=== PATIENT | male | born 1975 | race Caucasian/White ===

== ENCOUNTER 2023-01-04 10:15 | Emergency (ER) | payer OTHER, SELFPAY ==
[2023-01-04] VITALS (17 sets, daily range): BP systolic 134–172; BP diastolic 75–95; PULSE 73–85; RESP 16–20; TEMP 36.5–36.7; O2SAT 93–96
--- NOTE | ~2023-01-04 | CT_ITS ---
EXAMINATION: CT abdomen pelvis wo con DATE: 01/04/2023 11:50 INDICATION: Right groin abscess. TECHNIQUE: Computed tomography (CT) of the abdomen and pelvis was performed without intravenous contr ast. Automated exposure control and iterative reconstruction technique were employed. The dose-length product was 743.40 mGy-cm. COMPARISON: CT abdomen 01/29/2006 FINDINGS: The visualized portions of the lung bases demonstrate mild atelectasis. No pleural effusion . The heart size is normal. There are coronary artery calcifications. No pericardial effusion. The li ashwini, gallbladder, spleen, pancreas, adrenal glands, and kidneys are normal. There is no urolithiasis. The prostate is mildly enlarged. There are no dilated loops of bowel. The appendix is normal. There are no pathologically enlarged lymph nodes. There is no free intraperitoneal fluid. In the right ingu inal region, there is subcutaneous fat stranding, consistent with cellulitis. There is prominent fat in right inguinal canal that may be a hernia. There is mild thoracolumbar spondylosis. IMPRESSION: 1. Subcutaneous cellulitis in right inguinal region. No abscess. Reviewed, dictated and finalized at location A.
--- NOTE | 2023-01-04 10:29 | ED.SKABFB ---
HPI - Skin/Abscess/Foreign Bdy General Chief complaint: Skin/Abscess/Foreign Body Stated complaint: abscess on groin, hx DM1 Time Seen by Provider: 01/04/23 10:28 Source: patient Mode of arrival: ambulatory Limitations: no limitations History of Present Illness HPI narrative: Patient is a 47-year-old male with a history of type 1 diabetes, coronary artery disease, COPD presenting to the emergency department for evaluation of abscess in his right groin. Patient noted an abscess in his right groin that appeared on December 22. Patient states it was increasing in size as well as redness, increasing tenderness for which patient saw his primary care physician on the and was prescribed doxycycline. Patient does report that abscess has been draining foul-smelling, white-colored discharge over the past 48 hours. 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 He denies any testicular pain, upper abdominal pain. He denies fever, chills, nausea or vomiting. Patient is unsure if the doxycycline has really improved his symptoms. Patient was given follow-up with general surgery but advised to come here by his primary care physician for definitive incision and drainage. Patient reports history of this in the past for which she required surgery and admission. He states that he has been wearing his insulin pump and that glucoses have been well controlled. Related Data Home Medications Medication Instructions Recorded Confirmed atorvastatin 40 mg tablet 40 mg PO DAILY 06/09/20 08/09/22 clopidogrel 75 mg tablet 75 mg PO DAILY 06/09/20 08/09/22 cetirizine 10 mg tablet (Zyrtec) 10 mg PO DAILY PRN 08/09/22 08/09/22 Allergies Allergy/AdvReac Type Severity Reaction Status Date / Time guaifenesin Allergy Severe Dyspnea / Verified 01/04/23 11:32 SOB oxycodone AdvReac Intermediate Other Verified 01/04/23 11:32 Review of Systems Review of Systems: CONSTITUTIONAL: Denies fever, chills, or sweats. EYES: Denies visual changes, redness, or discharge. ENT: Denies rhinorrhea, congestion, sore throat, or otalgia. CARDIOVASCULAR: Denies chest pain, palpitations, or edema. RESPIRATORY: Denies cough or dyspnea. GASTROINTESTINAL: Denies abdominal pain, nausea, vomiting, or diarrhea. GENITOURINARY: Denies dysuria or hematuria. SKIN: Denies rash, reports draining right groin abscess MUSCULOSKELETAL: Denies back pain, joint pain, or myalgia. NEUROLOGIC: Denies headache, numbness, or weakness. [facility] Past Medical History Medical History Abscess of skin Anxiety CAD (coronary artery disease) COPD (chronic obstructive pulmonary disease) Ear pain, right H/O: HTN (hypertension) Heart disease Hyperlipidemia Hypothyroidism Long-term insulin use Neuropathy Type 1 diabetes mellitus Vision loss Surgical History Surgical History History of heart artery stent Family History Family History Mother Family history of cardiovascular disease Other Diabetes mellitus Family history of malignant neoplasm Hypertension Social History Social History Smoking status: Current every day smoker Tobacco type: cigarettes Alcohol intake: current Drinks per week: 6 Substance use: never Living arrangements: alone Occupation/Education: occupation Gender identity (if verbalized by the patient): Male Exam Narrative: GENERAL: Awake, alert, conversant HEAD: Normocephalic, atraumatic. EYES: PERRLA and EOMI. ENT: Nares clear, no rhinorrhea or epistaxis. Mucous membranes moist. NECK: Supple. CHEST: No respiratory distress, breathing even and non labored HEART: Regular rate, sinus rhythm ABDOMEN:Non distended, non tender EXTREMITIES: Normal range of motion. No edema. Patient with a right sided abscess that is draining pur
[2023-01-04 11:13] LABS: Basophils Absolute Auto 0.1 K/mm3 (0.0-0.1); Basophils Percent Auto 1.1 % (0.2-1.2); Eosinophils Absolute Auto 0.5 K/mm3 (0-0.3); Eosinophils Percent Auto 7.4 % (0-4.4); Hemoglobin 10.7 g/dL (14.0-18.0); Immature Granulocyte Absolute 0.02 K/mm3 (0.00-0.031); Immature Granulocyte Percent A 0.3 % (0-0.5); Lymphocytes Absolute Auto 1.59 K/mm3 (0.9-3.2); Mean Corpuscular HGB Conc 33.4 g/dl (32-36); Mean Corpuscular Hemoglobin 29.5 pg (26-34); Mean Corpuscular Volume 88.2 fl (80-100); Mean Platelet Volume 11.4 fl (7.4-10.4); Monocytes Absolute Auto 0.5 K/mm3 (0.1-0.6); Monocytes Percent Auto 8.2 % (2.6-8.5); Neutrophils Absolute Auto 3.5 K/mm3 (1.3-6.7); Platelet Count Result 158 k/mm3 (150-375); Red Blood Count 3.63 M/mm3 (4.6-6.20); Red Cell Distribution Width 13.3 % (11.5-14.5); White Blood Count 6.1 K/mm3 (4.5-10.0)
[2023-01-04 11:25] LABS: Alanine Aminotransferase 15 U/L (6-50); Albumin Level 3.5 g/dL (3.5-5.1); Alkaline Phosphatase 89 U/L (38-126); Anion Gap 4 mmol/L (8-16); Aspartate Amino Transferase 17 U/L (17-59); Bilirubin,Total 0.5 mg/dL (0.2-1.3); Blood Urea Nitrogen 25 mg/dL (9-20); Calcium 8.5 mg/dL (8.4-10.2); Carbon Dioxide 20 mmol/L (22-30); Chloride 110 mmol/L (98-107); Estimated CRCL calculation 36 ml/min; Estimated Glomerular Filt Rate 29; Glucose 157 mg/dL (65-110); Potassium 4.2 mmol/L (3.4-5.0); Sodium 134 mmol/L (137-145)
[2023-01-04] MEDS: oxyCODONE/ACETAMINOPHEN (*CRX) 5-325 MG TABLET 1 TABLET PO (11:32)
--- NOTE | 2023-01-04 11:35 | PC.NURSE ---
Patient states allergy to oxycodone is upset stomach if he hasnt eaten in a long time and was okay to take the medication. Provider made aware.
[2023-01-04] MEDS: SODIUM CHLORIDE 0.9% IV 1,000 ML 999 ML IV CONT (11:51)
[2023-01-04 11:52] LABS: Lactic Acid Reflex 0.6 mmol/L (0.7-2.0)
[2023-01-04 12:06] LABS: CRP 2.4 mg/dL (<1.0)
[2023-01-04 12:12] LABS: Erythrocyte Sedimentation Rate 75 mm/hr (0-20)
[2023-01-04] MEDS: MORPHINE SULFATE (*CRX) 4 MG/ML INJ IV PUSH (13:25)
--- NOTE | 2023-01-04 15:08 | PC.NURSE ---
report given to INESSA Montemayor
--- NOTE | 2023-01-04 16:31 | PM.CNGS ---
Assessment and Plan Assessment and plan (1) Abscess of right groin: Code(s): L02.214 - Cutaneous abscess of groin Status: Acute Assessment and Plan: Small simple right groin abscess with significant history of multiple previous recurrent bilateral groin abscesses in the past. Suspicious for hidradenitis. CT abdomen and pelvis showed no deeper abscess or subcutaneous gas. He successfully had an I&D in the ER and the incision was packed. WBC normal and he is afebrile. Discussed the case with Dr. Tripathi. We would recommend that he be sent home with oral antibiotics, switched from the doxycycline which he ultimately failed as an outpatient. Continue packing dressing changes with the 1/4 iodoform gauze daily. Follow-up with Dr. Tripathi in the office in 1-2 weeks. Call sooner if worsening or with any surgical concerns. (2) Type 1 diabetes mellitus: Code(s): E10.9 - Type 1 diabetes mellitus without complications Status: Acute Assessment and Plan: Glucose has been running higher than normal for him, as high as 220's over the past week. Likely related to the infection. His glucose is 157 today. He monitors his glucose closely and has an insulin pump. (3) CAD (coronary artery disease): Code(s): I25.10 - Atherosclerotic heart disease of [place] coronary artery without angina pectoris Status: Acute (4) H/O: HTN (hypertension): Code(s): Z86.79 - Personal history of other diseases of the circulatory system Status: Acute (5) Tobacco abuse: Code(s): Z72.0 - Tobacco use Status: Acute (6) Antiplatelet or antithrombotic long-term use: Code(s): Z79.02 - group home (current) use of antithrombotics/antiplatelets Status: Acute Plan I have discussed the patient's case and plan of care with Dr. Tripathi. History of Present Illness Consult details Consult date: 01/04/23 Reason for consult: other (Right groin abscess) Requesting physician: Anne Asencio MD Narrative: This is a 47-year-old man with type 1 diabetes mellitus and a history of multiple previous bilateral groin abscesses that have required incision and drainage multiple times in the past. He reports first noticing an area in his right groin that was red, swollen, and tender about 6 days ago. He called his PCP immediately that day due to his recurrent issues with groin abscesses and they called him in a script electronically for doxycycline. He started the antibiotic that day and has been taking this as prescribed. Initially, he felt the area got more swollen and tender over the next few days. He then saw his PCP on Sunday to evaluate his groin. They recommended he continue the doxycycline and go to the ER for evaluation. He ultimately decided to give it more time at home. This area began draining and over the past 2 days he feels there is significant improvement in the swelling and pain. Today, he decided to come into the ER to have this evaluated. Denies any fever chills. On exam, he was found have a right groin abscess that was draining purulence fluid through a small opening. Labs showed a normal white blood cell count, he was afebrile, and his vital signs were stable in the ER. CT scan of the abdomen and pelvis without contrast showed subcutaneous cellulitis in the right inguinal region with no evident abscess. The ER physician performed an incision and drainage of the right groin abscess. Abscess cultures were obtained. Our service has been consulted regarding the right groin abscess. He is now seen in the ER. His right groin has been packed following the I and D with quarter-inch iodoform gauze. He reports doing packing dressing changes in the past after previous I and D's himself. He denies a known history of hidradenitis suppurativa. Review of Systems Review of Systems: All systems reviewed & are unremarkable except as noted in HPI and below PMFSH Past Medical History Medical History (Updated 01/04/23 @ 16:
== END 2023-01-04 15:44 | disposition home or self-care (01) ==
LOC: ANHED 13:55 → ANH3MEDSUR 15:04 → ANHED 15:23
PROVIDERS: Emergency Provider Emergency Medicine; PCP Family Medicine
DX: L02.214 Cutaneous abscess of groin (principal); L03.314 Cellulitis of groin; I25.10 Atherosclerotic heart disease of native coronary artery without angina pectoris; J44.9 Chronic obstructive pulmonary disease, unspecified; E78.5 Hyperlipidemia, unspecified; I11.9 Hypertensive heart disease without heart failure; E03.9 Hypothyroidism, unspecified; E10.40 Type 1 diabetes mellitus with diabetic neuropathy, unspecified; F17.210 Nicotine dependence, cigarettes, uncomplicated; Z95.5 Presence of coronary angioplasty implant and graft; Z79.02 Long term (current) use of antithrombotics/antiplatelets; Z79.4 Long term (current) use of insulin
CPT/HCPCS: 10061; 36415; 74176; 80053; 83605; 85025; 85652; 86140; 87040; 87070; 87205; 96361; 96365; 96375; 99284; A9270; J2270; J3370; J7030

== ENCOUNTER 2023-12-31 10:04 | Outpatient (CLI) | payer OTHER, SELFPAY ==
[2023-12-31 10:55] LABS: Anion Gap 7 mmol/L (8-16); Blood Urea Nitrogen 41 mg/dL (9-20); Calcium 8.6 mg/dL (8.4-10.2); Carbon Dioxide 16 mmol/L (22-30); Chloride 112 mmol/L (98-107); Estimated Glomerular Filt Rate 21; Glucose 161 mg/dL (65-110); Potassium 4.1 mmol/L (3.4-5.0); Sodium 135 mmol/L (137-145)
== END 2023-12-31 10:05 | disposition home or self-care (01) ==
LOC: ANHSURGERY 10:08
PROVIDERS: Anesthesiology; PCP Physician Assistant Medical; Visit Provider Surgery
DX: E10.9 Type 1 diabetes mellitus without complications (principal)
CPT/HCPCS: 36415; 80048

== ENCOUNTER 2024-01-02 02:32 | Day surgery (SDC) | payer OTHER, SELFPAY ==
[2023-12-27 09:49] VITALS: BMI 25.7
--- NOTE | 2023-12-27 10:07 | PC.NURSE ---
Report to the Outpatient Waiting Room, entrance under the green pavilion located off [facility], at 0600 on 01-02-24. Planned Procedure Time: 0730. Time changes happen often and if your time is changed the preop area will call you the afternoon before. - You and your visitor will be asked to self-screen and do not enter if you have any COVID symptoms. - A mask is optional within the hospital at this time. Patients may have clear liquids (water, carbonated beverages, clear teas, apple juice) until 3 hours prior to surgery with a maximum of 20 ounces. 0430 - No food from midnight until time of surgery - Infants may have breast milk until 4 hours before surgery, formula 6 hours prior to surgery. - Children will be allowed to drink immediately following surgery. If applicable, please bring a bottle or sippy cup to assist with drinking. Juice, water, soda, and popsicles are readily available. For infants on formula, please bring formula the day of surgery. Pacifiers are allowed. Take the following medications with a SIP of water the morning of surgery: levothyroxine, carvedilol, amlodipine, venlafaxine, alprazolam if needed BRING RESCUE INHALER DAY OF SURGERY TO HOSPITAL. Wear insulin pump day of surgery. DO NOT STOP ANY OF YOUR OTHER PRESCRIPTION MEDICATIONS PRIOR TO SURGERY ?EXCEPT THE FOLLOWING Medications to discontinue per physician: Plavix, aspirin Date to take last dose: Per Dr. Tripathi Please no make-up, nail czech, hairspray, perfume, deodorant, or body powder the day of surgery. No jewelry (including any body piercings) or valuables the day of surgery, leave them at home. Please take a shower or bath the night before, or the morning of, surgery with an antibacterial soap. Wear comfortable, loose fitting clothing. Children are encouraged to wear pajamas. - Jewelry must be removed prior to entering the operating room. Rings and piercings that are not removed may be cut off. - The hospital will not accept responsibility for valuables. - Please leave all valuables, including medications, at home the day of surgery. If you are going home after surgery, a licensed city bus driver must drive you home. - NO public transportation without another adult if you receive anesthesia. - We recommend that an adult stay with you for 24 hours following discharge. - We also recommend that you do not drive, make important decision, drink alcoholic beverages, or take any drugs that were not prescribed by your health care provider for at least 24 hours after your discharge time. For Pediatric surgeries, we recommend two adults accompany the child home. Follow any additional instructions given to you from your surgeon. If you or anyone in your household have experienced Covid symptoms in the past week, please notify your surgeon or the nurse liaison at the phone number below for possible testing. Telephone instructions given to Daniel Kowalski and asked if any additional questions and then verbalized understanding. Patient advised to call surgeon office or pre surgery nurse liaison [phone] if any additional questions.
--- NOTE | 2024-01-01 10:30 | PM.SD2 ---
Same Day Admit/Disch: HPI History of Present Illness Chief complaint: skin cyst of neck Narrative: Tank Kowalski is a 48 year old male with multiple medical comorbidities including insulin-dependent diabetes, history AL and coronary stents, chronic anti thrombotic therapy, chronic kidney disease stage 4, COPD, smoker, and alcohol use of 6 drinks per week. He has a history of recurrent groin abscesses. He had developed a swollen nodule on the left side of his neck. With antibiotics the swelling resolved as did the pain associated with this. He was seen in the office and found to have a 2 cm skin cyst of the left neck about 3 in under the chin. He is taken to surgery now to excise the cyst to prevent further episodes of infection. [facility] Past Medical History Medical History (Updated 01/02/24 @ 11:46 by Humberto Tripathi MD) Abscess of skin Anxiety CAD (coronary artery disease) CKD (chronic kidney disease) stage 4, GFR 15-29 ml/min COPD (chronic obstructive pulmonary disease) Diabetes type 2, controlled Ear pain, right H/O: HTN (hypertension) Heart disease History of melanoma History of myocardial infarction Hyperlipidemia Hypothyroidism Long-term insulin use Melanoma Left cheek and nose Neuropathy Nocturia Mild prostate enlargement on CT December 2022 Restless leg syndrome Type 1 diabetes mellitus Vision loss Surgical History Surgical History (Updated 01/01/24 @ 15:54 by Olman Patel DO) History of heart artery stent x4 History of incision and drainage Multiple previous I&D's of bilateral groin abscesses for years Family History Family History Mother Family history of cardiovascular disease Other Diabetes mellitus Family history of malignant neoplasm Hypertension Social History Social History Smoking packs per day: 1.5 Smoking cigarettes per day: 30.0 Years smoked: 32 Smoking pack-years: 48.00 Smoking status: Current every day smoker Tobacco type: cigarettes Second hand tobacco smoke exposure: No Alcohol intake: current Drinks per week: 6 Substance use: never Substance use type: does not use Lack of Transportation: No Lack of Food: Never True Current Housing: I Have Housing Concerned About Future Housing: No Difficulty Paying Gas/Electric Bills: No Difficulty Paying for Meds: No Currently Unemployed: No Education: Trade/Vocational Certificate Difficulty w/ Childcare or Family Care: No Living arrangements: alone Occupation/Education: occupation 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 Gender identity (if verbalized by the patient): Male Spiritual care concerns: No Same Day Admit/Disch: Med Pre-admit Medications Home Medications Medication Instructions Recorded Confirmed Type clopidogrel 75 mg tablet 75 mg PO DAILY 06/09/20 01/02/24 History cetirizine 10 mg tablet (Zyrtec) 10 mg PO DAILY 08/09/22 01/02/24 History albuterol sulfate 90 mcg/actuation 2 inh inhalation Q4H PRN shortness 08/07/23 01/02/24 Rx aerosol inhaler (Ventolin HFA) of breath or wheezing #6.7 grams levothyroxine 50 mcg tablet 50 mcg PO DAILY #90 tabs 08/20/23 01/02/24 Rx pregabalin 75 mg capsule 75 mg PO BID #180 caps 08/20/23 01/02/24 Rx insulin lispro 100 unit/mL 100 unit continuous subcutaneous 11/28/23 01/02/24 Rx subcutaneous solution (Humalog infusion DAILY #90 mL U-100 Insulin) atorvastatin 40 mg tablet 40 mg PO DAILY #90 tabs 12/13/23 01/02/24 Rx carvedilol 25 mg tablet 25 mg PO BID #180 tabs 12/13/23 01/02/24 Rx lisinopril 2.5 mg tablet 2.5 mg PO DAILY #90 tabs 12/13/23 01/02/24 Rx pantoprazole 40 mg tablet,delayed 40 mg PO BID #180 tabs 12/13/23 01/02/24 Rx release venlafaxine 75 mg capsule,extended 150 mg PO DAILY #180 caps 12/13/23 01/02/24 Rx release 24 hr blood-glucose sensor (FreeStyle #2 ea 12/18/23 01/02/24 Rx Li
--- NOTE | 2024-01-01 15:53 | WPDANESEPPF ---
Anes - Initial Pre Proc Eval Procedure: Operation Date: 01/02/24 07:30 Proposed Procedures p Excision Skin Cyst of Neck - Humberto Tripathi MD Date/Time: 01/01/24 15:53 Surgeon: Humberto Tripathi MD Pre Op Diagnosis: skin cyst of neck Patient Data Age: 48 Gender: M Height: 1.8 m Weight: 83.91 kg Allergies Allergy/AdvReac Type Severity Reaction Status Date / Time guaifenesin Allergy Severe Dyspnea / Verified 12/27/23 09:26 SOB Home Medications Medication Instructions Recorded Confirmed Type clopidogrel 75 mg tablet 75 mg PO DAILY 06/09/20 01/02/24 History cetirizine 10 mg tablet (Zyrtec) 10 mg PO DAILY 08/09/22 01/02/24 History albuterol sulfate 90 mcg/actuation 2 inh inhalation Q4H PRN shortness 08/07/23 01/02/24 Rx aerosol inhaler (Ventolin HFA) of breath or wheezing #6.7 grams levothyroxine 50 mcg tablet 50 mcg PO DAILY #90 tabs 08/20/23 01/02/24 Rx pregabalin 75 mg capsule 75 mg PO BID #180 caps 08/20/23 01/02/24 Rx insulin lispro 100 unit/mL 100 unit continuous subcutaneous 11/28/23 01/02/24 Rx subcutaneous solution (Humalog infusion DAILY #90 mL U-100 Insulin) atorvastatin 40 mg tablet 40 mg PO DAILY #90 tabs 12/13/23 01/02/24 Rx carvedilol 25 mg tablet 25 mg PO BID #180 tabs 12/13/23 01/02/24 Rx lisinopril 2.5 mg tablet 2.5 mg PO DAILY #90 tabs 12/13/23 01/02/24 Rx pantoprazole 40 mg tablet,delayed 40 mg PO BID #180 tabs 12/13/23 01/02/24 Rx release venlafaxine 75 mg capsule,extended 150 mg PO DAILY #180 caps 12/13/23 01/02/24 Rx release 24 hr blood-glucose sensor (FreeStyle #2 ea 12/18/23 01/02/24 Rx Mita 3 Sensor device) amlodipine 10 mg tablet 10 mg PO DAILY #90 tabs 12/24/23 01/02/24 Rx alprazolam 0.25 mg tablet (Xanax) 0.25 mg PO DAILY PRN Anxiety 12/27/23 01/02/24 History aspirin 81 mg capsule 81 mg PO DAILY 12/27/23 01/02/24 History Patient hx anesthesia problems: none Family hx anesthesia problems: none Results Review: All pre-operative results and documents have been reviewed as part of the pre-operative evaluation. [facility] Past Medical History Medical History (Updated 01/01/24 @ 15:54 by Olman Patel DO) Abscess of skin Anxiety CAD (coronary artery disease) CKD (chronic kidney disease) stage 4, GFR 15-29 ml/min COPD (chronic obstructive pulmonary disease) Diabetes type 2, controlled Ear pain, right H/O: HTN (hypertension) Heart disease History of melanoma History of myocardial infarction Hyperlipidemia Hypothyroidism Long-term insulin use Melanoma Left cheek and nose Neuropathy Nocturia Mild prostate enlargement on CT December 2022 Restless leg syndrome Type 1 diabetes mellitus Vision loss Surgical History Surgical History (Updated 01/01/24 @ 15:54 by Olman Patel DO) History of heart artery stent x4 History of incision and drainage Multiple previous I&D's of bilateral groin abscesses for years Family History Family History Mother Family history of cardiovascular disease Other Diabetes mellitus Family history of malignant neoplasm Hypertension Social History Social History Smoking packs per day: 1.5 Smoking cigarettes per day: 30.0 Years smoked: 32 Smoking pack-years: 48.00 Smoking status: Current every day smoker Tobacco type: cigarettes Second hand tobacco smoke exposure: No Alcohol intake: current Drinks per week: 6 Substance use: never Substance use type: does not use Lack of Transportation: No Lack of Food: Never True Current Housing: I Have Housing Concerned About Future Housing: No Difficulty Paying Gas/Electric Bills: No Difficulty Paying for Meds: No Currently Unemployed: No Education: Trade/Vocational Certificate Difficulty w/ Childcare or Family Care: No Living arrangements: alone Occupation/Education: occupation Additional occupation/education
[2024-01-02 06:45] LABS: Glucose Point of Care 257 mg/dl (65-105)
--- NOTE | 2024-01-02 07:01 | WPDHPUPDATE1 ---
History and Physical Update Update Date/Time: 01/02/24 07:01 History and Physical has been reviewed, including an updated exam of the patient. There are NO changes in the patient's condition. Risks, benefits, and alternatives have been discussed and questions answered. Patient agrees to proceed with procedure.
[2024-01-02 07:25] VITALS: BP 139/74; PULSE 72; RESP 16; TEMP 37; O2SAT 98
[2024-01-02] MEDS: LACTATED RINGERS 1,000 ML 30 ML IV CONT (07:25)
[2024-01-02] MEDS: SCOPOLAMINE 1 MG PATCH 1 PATCH TRANSDERM (07:25)
[2024-01-02] MEDS: ceFAZolin 2 GM/D5W 50 ML 2 GM/50 ML BAG IVPB (07:25)
[2024-01-02 07:30] VITALS: BMI 26.2
[2024-01-02] MEDS: BUPIVACAINE/EPINEPHRINE 0.5% 30 ML VIAL INFILTRATE (07:44)
[2024-01-02 08:10] VITALS: BP 132/78; PULSE 72; RESP 14; O2SAT 99
[2024-01-02 08:30] VITALS: BP 153/80; PULSE 71; RESP 14; O2SAT 91
--- NOTE | 2024-01-02 08:35 | W.PM.PROC2 ---
Procedure Note - Detailed Date of Procedure 01/02/24 Pre-op Diagnosis skin cyst of neck Post-op Diagnosis Other (2.5 cm subcutaneous mass of the neck) Procedure Performed Excision 2.5 cm subcutaneous mass of the neck with no margin Surgeon Humberto Tripathi MD Claims Coordinator Cori Katz DRY KILN OPERATOR Anesthesia General (LMA) and Local (0.5% Marcaine with epinephrine) Indications Patient has had a subcutaneous mass in the anterior neck for at least a year. About 4 months ago it became swollen, tender, and painful. He took antibiotics and got better. He had a CT scan which showed a subcutaneous mass of about 1.8 cm. It had enlarged since a CT scan had been done in January of 2022. On exam it was hard to determine if this was a cyst or a lipoma. With his history of swelling and response to antibiotics, I felt at his office visit that this was a cyst of the skin. He is taken to surgery at this point for excision Findings It appeared this was a subcutaneous lipoma of 2.5 cm. The 2.5 cm was the length, 2 cm was the with, depth was 1.5 cm. It appeared to be a lipoma although an enlarged salivary gland or other abnormality the neck is possible. It did not appear to be a skin cyst. Description of Procedure Patient was marked in the preoperative holding area. He was then taken to surgery and anesthesia was introduced with LMA. The anterior neck was prepped and draped. I enzo the anticipated elliptical incision over the subcutaneous mass. I infiltrated local into the area of the anticipated incision as well as in the subcutaneous tissues. Incision was then made and dissection carried through the skin. I was able to see the subcutaneous mass better through the more posterior aspect of the incision. Cautery was used for hemostasis. With traction on the skin just below the mass, I was able to dissect the mass from the surrounding subcutaneous with the cautery. I continued this dissection around the posterior aspect of the mass and taking some of the normal appearing subcutaneous as well as the mass left attached to the skin. Eventually our retractors were placed on the more cephalad skin edge and then the dissection in this aspect was carried until the mass was completely excised. I measured the lesion with dimensions as noted above. Additional local was infiltrated. Cautery was used for hemostasis. 3-0 Vicryl was used for the subcutaneous fascia. A few subcuticular 4-0 Vicryl skin sutures were placed. A running 4-0 Monocryl skin suture was then placed. The wound was dressed with Exofin surgical adhesive. Patient was then awakened and taken to outpatient surgery in good condition. Sponge and needle counts were correct x2. Estimated Blood Loss -3 Drains No Pathology Yes (Subcutaneous mass of anterior neck) Complications No immediate complications Condition Stable Disposition Same day [facility] Billing Surgery - Charge Forward: Surgery Billing (Excision 2.5 cm subcutaneous mass anterior neck with no margin)
[2024-01-02 08:51] LABS: Glucose Point of Care 237 mg/dl (65-105)
[2024-01-02 08:55] VITALS: BP 157/81; PULSE 71; RESP 14; O2SAT 91
== END 2024-01-02 09:06 | disposition home or self-care (01) ==
PROVIDERS: PCP Physician Assistant Medical; Visit Provider Surgery
PROC: (CPT 11423; principal; 2024-01-02 07:30)
DX: L72.0 Epidermal cyst (principal); I13.10 Hypertensive heart and chronic kidney disease without heart failure, with stage 1 through stage 4 chronic kidney disease, or unspecified chronic kidney disease; E11.22 Type 2 diabetes mellitus with diabetic chronic kidney disease; N18.4 Chronic kidney disease, stage 4 (severe); I25.10 Atherosclerotic heart disease of native coronary artery without angina pectoris; I25.2 Old myocardial infarction; E78.5 Hyperlipidemia, unspecified; E03.9 Hypothyroidism, unspecified; E11.40 Type 2 diabetes mellitus with diabetic neuropathy, unspecified; F41.9 Anxiety disorder, unspecified; Z95.5 Presence of coronary angioplasty implant and graft; F17.210 Nicotine dependence, cigarettes, uncomplicated; Z79.02 Long term (current) use of antithrombotics/antiplatelets; Z79.51 Long term (current) use of inhaled steroids; Z79.4 Long term (current) use of insulin
CPT/HCPCS: 11423; 12042; 82948; 88304; A9270; J0690; J2250; J2405; J2704; J3010; J7120

== ENCOUNTER 2024-10-19 10:56 | Inpatient (IN) | payer OTHER, SELFPAY ==
[2024-10-19] VITALS (25 sets, daily range): BP systolic 117–152; BP diastolic 52–77; PULSE 63–89; RESP 16–39; TEMP 36.6–37.8; O2SAT 87–96
--- NOTE | ~2024-10-19 | XR_ITS ---
EXAMINATION: XR chest 2V DATE: 10/19/2024 12:04 INDICATION: Shortness of breath and cough TECHNIQUE: PA and lateral views of the chest were obtained. COMPARISON: Chest radiograph dated 09/28/2023 FINDINGS: New airspace opacities in the anterior lower lungs consistent with lingular and right middle lobe pne umonia. No pleural effusion or pneumothorax. Heart size is normal. Visualized bones and soft tissues are unremarkable. IMPRESSION: 1. Lingular and right middle lobe pneumonia. Reviewed, dictated and finalized at location A. [facility]
--- NOTE | 2024-10-19 11:28 | ECG_ITS ---
Test Date: 2024-10-19 11:48:30 Measurements Intervals [place] Rate: 61 P: 14 AR: 150 QRS: 25 QRSD: 94 T: 47 QT: 408 QTc: 411 Interpretive Statements SINUS RHYTHM SEPTAL MYOCARDIAL INFARCTION , OF INDETERMINATE AGE [40+ ms Q WAVE IN V1/V2] ABNORMAL ECG Electronically Signed On 10-19-2024 13:50:13 DISTANCE EDUCATION COORDINATOR by Tone Swan M.D.
[2024-10-19 11:53] LABS: Basophils Percent Auto 0.9 % (0.2-1.2); Eosinophils Absolute Auto 0.1 K/mm3 (0-0.3); Eosinophils Percent Auto 2.4 % (0-4.4); Hemoglobin 9.9 g/dL (14.0-18.0); Immature Granulocyte Absolute 0.01 K/mm3 (0.00-0.031); Immature Granulocyte Percent A 0.2 % (0-0.5); Lymphocytes Absolute Auto 0.43 K/mm3 (0.9-3.2); Lymphocytes Percent Auto 9.5 % (18.3-44.2); Mean Corpuscular HGB Conc 31.9 g/dl (32-36); Mean Corpuscular Hemoglobin 29.3 pg (26-34); Mean Corpuscular Volume 91.7 fl (80-100); Monocytes Absolute Auto 0.5 K/mm3 (0.1-0.6); Monocytes Percent Auto 9.9 % (2.6-8.5); Neutrophils Absolute Auto 3.5 K/mm3 (1.3-6.7); Neutrophils Percent Auto 77.1 % (45.5-73.1); Platelet Count Result 85 k/mm3 (150-375); Red Blood Count 3.38 M/mm3 (4.6-6.20); Red Cell Distribution Width 14.3 % (11.5-14.5); White Blood Count 4.6 K/mm3 (4.5-10.0)
[2024-10-19 12:11] LABS: Platelet Estimate Decreased (Adequate)
[2024-10-19 12:12] LABS: Large Platelets Present; Schistocytes None Seen
[2024-10-19 12:15] LABS: Alanine Aminotransferase 22 U/L (6-50); Albumin Level 3.7 g/dL (3.5-5.1); Alkaline Phosphatase 100 U/L (38-126); Anion Gap 7 mmol/L (4-12); Aspartate Amino Transferase 24 U/L (17-59); Bilirubin,Total 0.4 mg/dL (0.2-1.3); Blood Urea Nitrogen 38 mg/dL (9-20); Calcium 8.6 mg/dL (8.4-10.2); Carbon Dioxide 16 mmol/L (22-30); Chloride 113 mmol/L (98-107); Estimated CRCL calculation 18 ml/min; Estimated Glomerular Filt Rate 13; Glucose 178 mg/dL (65-110); Potassium 4.6 mmol/L (3.4-5.0); Sodium 136 mmol/L (137-145)
[2024-10-19 12:21] LABS: Lipase 46 U/L (23-300); Magnesium 1.6 mg/dL (1.6-2.3); Phosphorus 5.8 mg/dL (2.5-4.5)
--- NOTE | 2024-10-19 12:32 | PC.NURSE ---
pt unable to urinate at this time. provided pt with call light and urinal. educated pt to call nurses station with any urge to provide UA
[2024-10-19 12:33] LABS: NT Pro B Type Natriuretic Pept 3910 pg/mL (19.9-100); Troponin I < 0.012 ng/mL (0.000-0.034)
[2024-10-19 12:44] LABS: Lactic Acid Reflex < 0.5 mmol/L (0.7-2.0)
[2024-10-19 12:46] LABS: Prothrombin Time 13.7 Seconds (11.1-14.7)
[2024-10-19 12:47] LABS: Partial Thromboplastin Time 33.2 Seconds (22.3-36.8)
[2024-10-19 12:55] LABS: D Dimer 0.47 ug/mL (<0.48)
[2024-10-19 13:00] LABS: Influenza A QL RT-PCR Positive (Negative); Influenza B QL RT-PCR Negative (Negative); RSV RNA, RT-PCR Negative (Negative); SARS-CoV-2 RNA PCR Negative (Negative)
--- NOTE | 2024-10-19 14:44 | ED_ITS ---
HPI - General Adult General Chief complaint: Shortness of Breath/Dyspnea Stated complaint: cough, SOB x2 days Time Seen by Provider: 10/19/24 11:29 History of Present Illness HPI narrative: This is a 49-year-old male history of CKD stage 4 presenting for shortness of breath. patient has been having symptoms have steadily getting worse for the last 3 days. He also has body aches and chills. Patient notes that is difficult for him to lay flat and he has had some swelling around his ankles. No sick contacts at home. Patient has CKD stage 4 and is working with Nephrology to prepare for dialysis. Related Data Home Medications ?Medication ?Instructions ?Recorded ?Confirmed ?Last Taken ?Type clopidogrel 75 mg tablet 75 mg PO DAILY 06/09/20 09/24/24 7 Days Ago History ~12/26/23 cetirizine 10 mg tablet (Zyrtec) 10 mg PO DAILY 08/09/22 09/24/24 01/01/24 History cholecalciferol (vitamin D3) 50 50 mcg PO DAILY 01/25/24 09/24/24 Unknown History mcg (2,000 unit) capsule ezetimibe 10 mg tablet 10 mg PO DAILY 01/25/24 09/24/24 Unknown History Allergies Allergy/AdvReac Type Severity Reaction Status Date / Time guaifenesin Allergy Severe Dyspnea / Verified 10/19/24 10:58 SOB PMF Past Medical History Medical History Hyperparathyroidism Vitamin D deficiency Hypertension Chronic fatigue Peripheral neuropathy Subcutaneous mass of neck excised Diabetes type 2, controlled Restless leg syndrome History of melanoma History of myocardial infarction Skin cyst Melanoma Left cheek and nose Nocturia Mild prostate enlargement on CT December 2022 CKD (chronic kidney disease) stage 4, GFR 15-29 ml/min Abscess of skin Ear pain, right Hypothyroidism Type 1 diabetes mellitus Neuropathy Hyperlipidemia Long-term insulin use with insulin pump COPD (chronic obstructive pulmonary disease) Vision loss Heart disease CAD (coronary artery disease) Anxiety Surgical History Surgical History Hx of excision of mass Excision 2.5 cm subcutaneous mass of the neck with no margin 01/02/24 History of incision and drainage Multiple previous I&D's of bilateral groin abscesses for years History of heart artery stent x4 Family History Family History Mother Family history of cardiovascular disease Other Diabetes mellitus Family history of malignant neoplasm Hypertension Social History Social History Smoking packs per day: 1.5 Smoking cigarettes per day: 30.0 Years smoked: 32 Smoking pack-years: 48.00 Smoking status: Current every day smoker Tobacco type: cigarettes Second hand tobacco smoke exposure: No Alcohol intake: current Drinks per week: 6 Substance use: never Substance use type: does not use Do You Feel Safe in your Home?: Yes Lack of Transportation: No Lack of Food: Never True Current Housing: I Have Housing Concerned About Future Housing: No Difficulty Paying Gas/Electric Bills: No Difficulty Paying for Meds: No Currently Unemployed: No Education: Trade/Vocational Certificate Difficulty w/ Childcare or Family Care: No Living arrangements: alone Occupation/Education: occupation 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 EYES: EOMI, NOSE: Atraumatic NECK: Trachea midline RESPIRATORY: tachypneic, scattered crackles, hypoxic on room air CARDIOVASCULAR: RRR, +1 edema of the lower extremities ABDOMINAL: Non-distended soft nontender MUSCULOSKELETAl: No obvious deformities NEURO: Alert. Moving 4/4 extremities SKIN:: Warm, dry. Normal color PSYCHIATRIC: Normal affect Course Vital Signs Vital signs: Vital Signs Temperature 97.8 F 10/19/24 11:07 Pulse Rate 66 10/19/24 11:07 Respiratory Rate 16 10/19/24 11:07 Blood Pressure 117/52 L 10/19/24 11:07 Pulse Oximetry 88 L 10/19/24 11:07 Oxygen Delivery Room Air 10/19/24 11:07 Temperature 97.8 F 10/19/24 11:30 Pulse Rate 67 10/19/24 13:01 Respiratory Rate 39 H 10/19/24 13:01 Blood Pressure 132/69 10/19/24 13:01 Pulse Oximetry 95 10/19/24 13:01 Oxygen Delivery Nasal Cannula 10/19/24 11:51 Oxygen Flow Rate 2 10/19/24 11:51 Medical Decision Making MDM Narrative Medical decision making narrative: -Course: 49-year-old male presenting with 3 days of flu-like symptoms and hypoxia. Placed on 2 L nasal cannula with improvement in saturation. Workup significant for right-sided pneumonia and flu A. Patient started on Tamiflu. Patient's kidney function with creatinine at 4.7 which was 4.0 at his last nephrology visit on September 24. BNP elevated 4000 but probably not useful with his degree of kidney disease. No echocardiogram in our system. Patient given cautious fluid resuscitation. patient will be admitted hospital for further management. -DDX includes but is not limited to: COVID flu pneumonia CHF COPD sepsis -Co-morbidities complicating care: CKD stage 4, coronary artery disease -Independent interpretation of studies: labs imaging reviewed Independent EKG interpretation: Rhythm [sinus], Rate [61], [place] -[normal], [place] -[normal], QRS [narrow], QTC [normal], T waves -[negative for concerning inversions], ST Segments - [Negative for concerning elevations] Final interpretations: [Normal Sinus Rhythm] -Discussion of Management/Consultants:Liz -Interventions:Tamiflu, 1 L ns -Shared decision making / Disposition: admitted. Vital Signs Vital Signs: Vital Signs Temperature 97.8 F 10/19/24 11:07 Pulse Rate 66 10/19/24 11:07 Respiratory Rate 16 10/19/24 11:07 Blood Pressure 117/52 L 10/19/24 11:07 Pulse Oximetry 88 L 10/19/24 11:07 Oxygen Delivery Room Air 10/19/24 11:07 Temperature 97.8 F 10/19/24 11:30 Pulse Rate 67 10/19/24 13:01 Respiratory Rate 39 H 10/19/24 13:01 Blood Pressure 132/69 10/19/24 13:01 Pulse Oximetry 95 10/19/24 13:01 Oxygen Delivery Nasal Cannula 10/19/24 11:51 Oxygen Flow Rate 2 10/19/24 11:51 Lab Data 10/19/24 11:39 10/19/24 11:39 Labs: Lab Results 10/19/24 10/19/24 10/19/24 Range/Units 11:39 12:14 12:28 WBC 4.6 (4.5-10.0) K/mm3 RBC 3.38 L (4.6-6.20) M/mm3 Hgb 9.9 L (14.0-18.0) g/dL Hct 31.0 L (42.0-52.0) % MCV 91.7 (80-100) fl MCH 29.3 (26-34) pg MCHC 31.9 L (32-36) g/dl RDW 14.3 (11.5-14.5) % Plt Count 85 L (150-375) k/mm3 MPV 12.0 H (7.4-10.4) fl Immature Gran % (Auto) 0.2 (0-0.5) % Neut % (Auto) 77.1 H (45.5-73.1) % Lymph % (Auto) 9.5 L (18.3-44.2) % [place] % (Auto) 9.9 H (2.6-8.5) % Eos % (Auto) 2.4 (0-4.4) % Baso % (Auto) 0.9 (0.2-1.2) % Lymph # (Auto) 0.43 L (0.9-3.2) K/mm3 [place] # (Auto) 0.5 (0.1-0.6) K/mm3 Eos # (Auto) 0.1 (0-0.3) K/mm3 Baso # (Auto) 0.0 (0.0-0.1) K/mm3 Abs Immat Gran (auto) 0.01 (0.00-0.031) K/mm3 Absolute Neuts (auto) 3.5 (1.3-6.7) K/mm3 Absolute Nucleated RBC 0.000 (0.0-0.012) K/mm3 Nucleated RBC % 0.0 (0.0-0.2) % Platelet Estimate Decreased (Adequate) Large Platelets Present % Immature Plt Fraction 11.0 (0.9-11.2) % Schistocytes None seen PT 13.7 (11.1-14.7) Seconds INR 1.0 APTT 33.2 (22.3-36.8) Seconds D-Dimer 0.47 (<0.48) ug/mL Sodium 136 L (137-145) mmol/L Potassium 4.6 (3.4-5.0) mmol/L Chloride 113 H (98-107) mmol/L Carbon Dioxide 16 L (22-30) mmol/L Anion Gap 7 (4-12) mmol/L BUN 38 H (9-20) mg/dL Creatinine 4.70 H (0.7-1.3) mg/dL Estim Creat Clear Calc 18 ml/min Estimated GFR 13 L (59 - ) Glucose 178 H (65-110) mg/dL Lactic Acid < 0.5 L (0.7-2.0) mmol/L Calcium 8.6 (8.4-10.2) mg/dL Phosphorus 5.8 H (2.5-4.5) mg/dL Magnesium 1.6 (1.6-2.3) mg/dL Total Bilirubin 0.4 (0.2-1.3) mg/dL AST 24 (17-59) U/L ALT 22 (6-50) U/L Alkaline Phosphatase 100 (38-126) U/L Troponin I < 0.012 (0.000-0.034) ng/mL NT-Pro-B Natriuret Pep 3910 H (19.9-100) pg/mL Total Protein 7.0 (6.3-8.2) g/dL Albumin 3.7 (3.5-5.1) g/dL Lipase 46 (23-300) U/L TSH (Reflex) 3.390 (0.465-4.68) uIU/mL Influenza A (RT-PCR) Positive A (Negative) Influenza B (RT-PCR) Negative (Negative) RSV (RT-PCR) Negative (Negative) SARS-CoV-2 RNA (RT-PCR) Negative (Negative) 10/19/24 Range/Units 15:02 WBC (4.5-10.0) K/mm3 RBC (4.6-6.20) M/mm3 Hgb (14.0-18.0) g/dL Hct (42.0-52.0) % MCV (80-100) fl MCH (26-34) pg MCHC (32-36) g/dl RDW (11.5-14.5) % Plt Count (150-375) k/mm3 MPV (7.4-10.4) fl Immature Gran % (Auto) (0-0.5) % Neut % (Auto) (45.5-73.1) % Lymph % (Auto) (18.3-44.2) % [place] % (Auto) (2.6-8.5) % Eos % (Auto) (0-4.4) % Baso % (Auto) (0.2-1.2) % Lymph # (Auto) (0.9-3.2) K/mm3 [place] # (Auto) (0.1-0.6) K/mm3 Eos # (Auto) (0-0.3) K/mm3 Baso # (Auto) (0.0-0.1) K/mm3 Abs Immat Gran (auto) (0.00-0.031) K/mm3 Absolute Neuts (auto) (1.3-6.7) K/mm3 Absolute Nucleated RBC (0.0-0.012) K/mm3 Nucleated RBC % (0.0-0.2) % Platelet Estimate (Adequate) Large Platelets % Immature Plt Fraction (0.9-11.2) % Schistocytes PT (11.1-14.7) Seconds INR APTT (22.3-36.8) Seconds D-Dimer (<0.48) ug/mL Sodium (137-145) mmol/L Potassium (3.4-5.0) mmol/L Chloride (98-107) mmol/L Carbon Dioxide (22-30) mmol/L Anion Gap (4-12) mmol/L BUN (9-20) mg/dL Creatinine (0.7-1.3) mg/dL Estim Creat Clear Calc ml/min Estimated GFR (59 - ) Glucose (65-110) mg/dL Lactic Acid (0.7-2.0) mmol/L Calcium (8.4-10.2) mg/dL Phosphorus (2.5-4.5) mg/dL Magnesium (1.6-2.3) mg/dL Total Bilirubin (0.2-1.3) mg/dL AST (17-59) U/L ALT (6-50) U/L Alkaline Phosphatase (38-126) U/L Troponin I < 0.012 (0.000-0.034) ng/mL NT-Pro-B Natriuret Pep (19.9-100) pg/mL Total Protein (6.3-8.2) g/dL Albumin (3.5-5.1) g/dL Lipase (23-300) U/L TSH (Reflex) (0.465-4.68) uIU/mL Influenza A (RT-PCR) (Negative) Influenza B (RT-PCR) (Negative) RSV (RT-PCR) (Negative) SARS-CoV-2 RNA (RT-PCR) (Negative) Critical Care Time Critical Care Time Critical Care Time: Yes Total Critical Care Time: 35 Discharge Plan Discharge Clinical Impression: Flu, Hypoxic respiratory failure, Pneumonia Patient Disposition: Home, Self-Care Condition: Stable Instructions: Antibiotic Form Patient Language: Azeri Prescriptions: No Action clopidogrel 75 mg tablet 75 mg PO DAILY albuterol sulfate [Ventolin HFA] 90 mcg/actuation HFA aerosol inhaler 2 inh inhalation Q4H PRN (Reason: shortness of breath or wheezing) Qty: 6.7 0RF insulin lispro [Humalog U-100 Insulin] 100 unit/mL solution 100 unit continuous subcutaneous infusion DAILY Qty: 90 2RF Rx Instructions: using insulin pump Total Daily Dose 100uints/day ergocalciferol (vitamin D2) 1,250 mcg (50,000 unit) capsule 1,250 mcg PO WEEKLY Qty: 12 0RF cholecalciferol (vitamin D3) 50 mcg (2,000 unit) capsule 50 mcg PO DAILY carvedilol 25 mg tablet 25 mg PO BID Qty: 180 1RF cetirizine [Zyrtec] 10 mg tablet 10 mg PO DAILY tramadol 50 mg tablet 50 mg PO Q6H PRN (Reason: pain) Qty: 10 0RF ezetimibe 10 mg tablet 10 mg PO DAILY Rx Instructions: Ordered by [facility] Superintendent per Patient 01/25/24 atorvastatin 40 mg tablet 40 mg PO DAILY Qty: 90 1RF Patient Comments: patient takes HS (DME) [employer] Mita 3 Sensor Device See Rx Instructions .Route Qty: 2 3RF Rx Instructions: change every 14 day alprazolam [Xanax] 0.25 mg tablet 0.25 mg PO DAILY PRN (Reason: Anxiety) Qty: 30 1RF Repatha Syringe 140 mg/mL syringe 140 mg subcut .q14 days Qty: 1 0RF Rx Instructions: CARDIOLOGY pantoprazole 40 mg tablet,delayed release (DR/EC) 40 mg PO BID Qty: 180 1RF mupirocin 2 % ointment 1 applic topical BID Qty: 22 1RF doxycycline hyclate 100 mg capsule 100 mg PO BID Qty: 20 0RF lisinopril 2.5 mg tablet 2.5 mg PO DAILY Qty: 90 1RF levothyroxine 50 mcg tablet 50 mcg PO DAILY Qty: 90 1RF (DME) [facility] Mita 3 Plus Sensor Device See Rx Instructions .Route Qty: 3 0RF Rx Instructions: change every 15 days amlodipine 10 mg tablet 10 mg PO DAILY Qty: 90 0RF Rx Instructions: please schedule appt venlafaxine 75 mg capsule,extended release 24hr 150 mg PO DAILY Qty: 180 0RF pregabalin 75 mg capsule 75 mg PO BID Qty: 180 1RF Follow-up/Referrals: Denisha Hansen I. PATonyC [Primary Care Provider] -
[2024-10-19] MEDS: OSELTAMIVIR PHOSPHATE 30 MG CAPSULE PO (15:05)
[2024-10-19] MEDS: SODIUM CHLORIDE 0.9% IV 1,000 ML 999 ML IV CONT (15:05)
[2024-10-19] MEDS: ACETAMINOPHEN 500 MG TABLET 1000 MG PO (15:05)
[2024-10-19 15:31] LABS: Troponin I < 0.012 ng/mL (0.000-0.034)
--- NOTE | 2024-10-19 16:18 | P.HP_ITS ---
H&P: HPI History of Present Illness Date/Time: 10/19/24 16:18 Chief Complaint: Shortness of breath Narrative: 49-year-old male past medical history of CKD stage 4, diabetes type 1, CHF, CAD presents the hospital with 3 days of shortness of breath. HPI is limited due the patient being extremely tachypneic and in the tripod position. Patient unable to talk in complete sentences due to shortness of breath. In the ED the patient test positive for influenza a, creatinine of 4.7 baseline some are around 4, BUN of 38, GFR 13, phosphorus of 5.8 BNP of 3910, chest x-ray showing Lingular and right middle lobe pneumonia. EKG shows shows sinus rhythm. Review of Systems Review of Systems: 12 systems were reviewed and are negativ e except for as per HPI. ON LICENSE OF [facility] Past Medical History Medical History Hyperparathyroidism Vitamin D deficiency Hypertension Chronic fatigue Peripheral neuropathy Subcutaneous mass of neck excised Diabetes type 2, controlled Restless leg syndrome History of melanoma History of myocardial infarction Skin cyst Melanoma Left cheek and nose Nocturia Mild prostate enlargement on CT December 2022 CKD (chronic kidney disease) stage 4, GFR 15-29 ml/min Abscess of skin Ear pain, right Hypothyroidism Type 1 diabetes mellitus Neuropathy Hyperlipidemia Long-term insulin use with insulin pump COPD (chronic obstructive pulmonary disease) Vision loss Heart disease CAD (coronary artery disease) Anxiety Surgical History Surgical History Hx of excision of mass Excision 2.5 cm subcutaneous mass of the neck with no margin 01/02/24 History of incision and drainage Multiple previous I&D's of bilateral groin abscesses for years History of heart artery stent x4 Family History Family History Mother Family history of cardiovascular disease Other Diabetes mellitus Family history of malignant neoplasm Hypertension Social History Social History Smoking packs per day: 2 Smoking cigarettes per day: 40.0 Years smoked: 25 Smoking pack-years: 50.00 Smoking status: Former smoker Tobacco type: cigarettes Second hand tobacco smoke exposure: Yes Smoking end date: 10/01/24 Alcohol intake: former Drinks per week: 6 Substance use: never Substance use type: does not use Do You Feel Safe in your Home?: Yes Lack of Transportation: No Lack of Food: Never True Current Housing: I Have Housing Concerned About Future Housing: No Difficulty Paying Gas/Electric Bills: No Difficulty Paying for Meds: No Currently Unemployed: No Education: High School Diploma/GED Difficulty w/ Childcare or Family Care: No Living arrangements: alone Occupation/Education: occupation 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 Gender identity (if verbalized by the patient): Male Spiritual care concerns: No Meds Home Medications and Allergies Home Medications ?Medication ?Instructions ?Recorded ?Confirmed ?Type clopidogrel 75 mg tablet 75 mg PO DAILY 06/09/20 10/19/24 History cetirizine 10 mg tablet (Zyrtec) 10 mg PO DAILY 08/09/22 10/19/24 History albuterol sulfate 90 mcg/actuation 2 inh inhalation Q4H PRN shortness 08/07/23 10/19/24 Rx aerosol inhaler (Ventolin HFA) of breath or wheezing #6.7 grams insulin lispro 100 unit/mL 100 unit continuous subcutaneous 01/17/24 10/19/24 Rx subcutaneous solution (Humalog infusion DAILY #90 mL U-100 Insulin) atorvastatin 40 mg tablet 40 mg PO DAILY #90 tabs 05/05/24 10/19/24 Rx blood-glucose sensor (FreeStyle #2 ea 05/06/24 10/19/24 Rx Mita 3 Sensor device) alprazolam 0.25 mg tablet (Xanax) 0.25 mg PO DAILY PRN Anxiety #30 06/02/24 10/19/24 Rx tabs carvedilol 25 mg tablet 25 mg PO BID #180 tabs 07/08/24 10/19/24 Rx pantoprazole 40 mg tablet,delayed 40 mg PO BID #180 tabs 08/01/24 10/19/24 Rx release lisinopril 2.5 mg tablet 2.5 mg PO DAILY #90 tabs 08/12/24 10/19/24 Rx levothyroxine 50 mcg tablet 50 mcg PO DAILY #90 tabs 08/18/24 10/19/24 Rx blood-glucose sensor (FreeStyle #3 ea 09/22/24 10/19/24 Rx Mita 3 Plus Sensor device) amlodipine 10 mg tablet 10 mg PO DAILY #90 tabs 09/25/24 10/19/24 Rx pregabalin 75 mg capsule 75 mg PO BID #180 caps 09/26/24 10/19/24 Rx isosorbide mononitrate 60 mg 60 mg PO DAILY 10/19/24 10/19/24 History tablet,extended release 24 hr Allergies Allergy/AdvReac Type Severity Reaction Status Date / Time guaifenesin Allergy Severe Dyspnea / Verified 10/19/24 10:58 SOB Vital Signs Vital Signs - 24 hr 10/19/24 11:07 10/19/24 11:18 10/19/24 11:20 Temperature 97.8 F Pulse Rate 66 Respiratory Rate 16 Blood Pressure 117/52 L Pulse Oximetry 88 L 87 L 96 Oxygen Delivery Room Air Room Air Nasal Cannula Oxygen Flow Rate 2 10/19/24 11:30 10/19/24 11:45 10/19/24 11:51 Temperature 97.8 F Pulse Rate 63 64 Respiratory Rate 23 H 28 H Blood Pressure 121/58 L 120/62 Pulse Oximetry 96 96 96 Oxygen Delivery Nasal Cannula Oxygen Flow Rate 2 10/19/24 12:15 10/19/24 13:01 10/19/24 15:42 Temperature 98.0 F Pulse Rate 64 67 82 Respiratory Rate 28 H 39 H 32 H Blood Pressure 118/66 132/69 143/65 H Pulse Oximetry 95 95 93 Oxygen Delivery Oxygen Flow Rate Exam Narrative: General: Mild distress, tripod HEENT: normocephalic, atraumatic. Mucous membranes moist. EOMI, PERRLA, bilateral sclera anicteric, no conjunctival injection. Neck supple without JVD, lymphadenopathy, or bruit. Respiratory: Diminished to ascultation bilaterally. No rales/rhonic/wheezes tachypneic. Cardiovascular: Regular rate and rhythm, normal S1-S2 upon ascultation. No m urmurs, rubs, or clicks. PMI is nondisplaced, capillary refill less than 3 second. Abdomen: Soft, round, no pulsatile masses, nondistended and nontender. No rebound, no guarding. No CVA tenderness, no hepatosplenomegaly. Bowel sounds present to all four quadrants. No high pitch or tinkling sounds, resonant to percussion. Extremities: No cyanosis, clubbing, or edema present. Pulses are palpable 2/2. Active ROM to all four extremities. Neuro: Alert and orientated x 4. PERRLA. Cranial nerves 2-12 intact without focal deficit. Skin: Warm, dry, and intact, without rash, erythema, or lesion. Psych: pleasant, cooperative, normal speech, normal affect, no hallucinations, no dysarthia H&P: Results Labs Labs: Short CBC 10/19/24 Range/Units 11:39 WBC 4.6 (4.5-10.0) K/mm3 Hgb 9.9 L (14.0-18.0) g/dL Hct 31.0 L (42.0-52.0) % Plt Count 85 L (150-375) k/mm3 BMP 10/19/24 11:39 Sodium 136 L Potassium 4.6 Chloride 113 H Carbon Dioxide 16 L BUN 38 H Creatinine 4.70 H Glucose 178 H Calcium 8.6 Cardiac Enzymes 10/19/24 10/19/24 Range/Units 11:39 15:02 Troponin I < 0.012 < 0.012 (0.000-0.034) ng/mL Liver Function 10/19/24 Range/Units 11:39 Total Bilirubin 0.4 (0.2-1.3) mg/dL AST 24 (17-59) U/L ALT 22 (6-50) U/L Alkaline Phosphatase 100 (38-126) U/L Albumin 3.7 (3.5-5.1) g/dL Assessment and Plan Assessment and plan (1) Pneumonia: Code(s): J18.9 - Pneumonia, unspecified organism Status: Acute Assessment and Plan: Lingular and right middle lobe pneumonia. Positive for influenza A (2) Hypoxic respiratory failure: Code(s): J96.91 - Respiratory failure, unspecified with hypoxia Status: Acute Assessment and Plan: Secondary to influenza A Tamiflu Blood cultures pending Urine cultures pending (3) Chronic kidney disease, stage IV (severe): Code(s): N18.4 - Chronic kidney disease, stage 4 (severe) Status: Acute Assessment and Plan: Acute on chronic baseline around 4.0, creatinine on admission 4.7 Metabolic acidosis partially compensated LR bolus and IV hydration Repeat BMP in the morning (4) Type 1 diabetes mellitus: Qualifiers: Diabetes mellitus complication status: without complication Qualified Code(s): E10.9 - Type 1 diabetes mellitus without complications Code(s): E10.9 - Type 1 diabetes mellitus without complications Status: Acute Assessment and Plan: Patient wearing insulin pump, was due to does not take long-acting insulin Nurse to chart blood sugars Diabetic diet (5) CHF (congestive heart failure): Code(s): I50.9 - Heart failure, unspecified Status: Acute Assessment and Plan: BMP 3910, appears to be dehydrated Echocardiogram pending (6) Hypertension: Code(s): I10 - Essential (primary) hypertension Status: Acute Assessment and Plan: Continue home medications (7) CAD (coronary artery disease): Code(s): I25.10 - Atherosclerotic heart disease of [place] coronary artery without angina pectoris Status: Acute Assessment and Plan: Continue Coreg, Plavix, isosorbide mononitrate, Quality VTE Prophylaxis VTE prophylaxis: mechanical ordered If No VTE Prophylaxis Answer both mechanical and pharmacologic: Reason no pharmacologic proph: medical contraindication (Platelets 85) Hospitalist [facility] Advance Care Plan I have confirmed that the patient's Advanced Care Plan is present, code status is documented, or surrogate decision maker is listed in patient medical record.: Yes Medication Reconciliation I have utilized all available resources to obtain, update and review the patients current medications (includes all prescriptions, OTC, herbals, cannabis, and nutritional supplements).: Yes
--- NOTE | 2024-10-19 17:53 | ADMGEN ---
This patient, Tank Kowalski, was admitted to 2 Medical Room 250-01. Patient/family oriented to hospital policies and general routines including ID bracelet, bed and alarms, visiting hours, pain management, procedures, bathroom and other care routines, personal items, smoking policy, room service/diet, and visiting hours. Information on how to activate the Rapid Response Team has been discussed. Patient encouraged to report perceived risks to care and to ask questions if they do not understand what they are told or what they should do. Call light within reach. Patient oriented to room. No complaints or needs at this time.
[2024-10-19 18:09] LABS: Glucose Point of Care 156 mg/dl (65-105)
--- NOTE | 2024-10-19 18:24 | PC.NURSE ---
Home medications locked in room cabinet until sister can take them home.
[2024-10-19 20:11] LABS: Glucose Point of Care 190 mg/dl (65-105)
[2024-10-19 20:42] LABS: Alveolar/Arterial O2 Gradient 65.2 mmHg; Base Excess ABG -11.3 mEq/l (+/-2.0); Fractional Inspired Oxygen 24 %; HCO3 ABG 14.8 mEq/l (22.0-26.0); Oxygen Content ABG 14.3 %vol (16.0-22.0); Oxygen Saturation ABG 89.8 % (95.0-100.0); Oxyhemoglobin 90.8 % THb (90.0-100.0); PCO2 ABG 34.4 mmHg (35.0-45.0); PO2 FiO2 Ratio Arterial Blood 2.71 %; Total Hemoglobin 11.2 g/dL (12.0-18.0)
[2024-10-19 20:47] LABS: Device NASAL CANNULA; Modified Allen's Test Pass; Site Drawn LEFT RADIAL; pH ABG 7.253 (7.350-7.450)
[2024-10-19] MEDS: IPRATROPIUM 0.5 MG/ALBUTEROL SULFATE 2.5 MG AMPUL.NEB 3 ML INHALATION (20:51)
[2024-10-19] MEDS: PREGABALIN (*CRX) 75 MG CAPSULE PO (21:45)
[2024-10-19] MEDS: ATORVASTATIN 40 MG TABLET PO (21:46)
[2024-10-19] MEDS: PANTOPRAZOLE 40 MG TABLET PO (21:46)
[2024-10-19] MEDS: carvediloL 25 MG TABLET PO (21:46)
[2024-10-19] MEDS: ACETAMINOPHEN 325 MG TABLET 650 MG PO (21:55)
[2024-10-19] MEDS: LACTATED RINGERS 1,000 ML 999 ML IV CONT (21:56)
[2024-10-19] MEDS: LACTATED RINGERS 1,000 ML 100 ML IV CONT (23:11)
[2024-10-20] VITALS (21 sets, daily range): BP systolic 128–160; BP diastolic 51–70; PULSE 71–94; RESP 17–20; TEMP 36.4–37.8; O2SAT 90–98
[2024-10-20] MEDS: IPRATROPIUM 0.5 MG/ALBUTEROL SULFATE 2.5 MG AMPUL.NEB 3 ML INHALATION ×4 (02:03→21:53)
[2024-10-20] MEDS: LEVOTHYROXINE SODIUM 50 MCG TABLET PO (05:43)
[2024-10-20 05:59] LABS: Basophils Percent Auto 0.9 % (0.2-1.2); Eosinophils Absolute Auto 0.1 K/mm3 (0-0.3); Eosinophils Percent Auto 1.8 % (0-4.4); Hematocrit 31.8 % (42.0-52.0); Immature Granulocyte Absolute 0.02 K/mm3 (0.00-0.031); Immature Granulocyte Percent A 0.5 % (0-0.5); Lymphocytes Absolute Auto 0.71 K/mm3 (0.9-3.2); Lymphocytes Percent Auto 16.2 % (18.3-44.2); Mean Corpuscular HGB Conc 31.4 g/dl (32-36); Mean Corpuscular Hemoglobin 29.5 pg (26-34); Mean Corpuscular Volume 93.8 fl (80-100); Mean Platelet Volume 12.2 fl (7.4-10.4); Monocytes Absolute Auto 0.7 K/mm3 (0.1-0.6); Monocytes Percent Auto 15.1 % (2.6-8.5); Neutrophils Absolute Auto 2.9 K/mm3 (1.3-6.7); Neutrophils Percent Auto 65.5 % (45.5-73.1); Platelet Count Result 96 k/mm3 (150-375); Red Blood Count 3.39 M/mm3 (4.6-6.20); Red Cell Distribution Width 14.5 % (11.5-14.5); White Blood Count 4.4 K/mm3 (4.5-10.0)
[2024-10-20 06:06] LABS: Anion Gap 8 mmol/L (4-12); Blood Urea Nitrogen 39 mg/dL (9-20); Calcium 8.5 mg/dL (8.4-10.2); Carbon Dioxide 16 mmol/L (22-30); Chloride 113 mmol/L (98-107); Estimated CRCL calculation 18 ml/min; Estimated Glomerular Filt Rate 13; Glucose 139 mg/dL (65-110); Potassium 4.4 mmol/L (3.4-5.0); Sodium 137 mmol/L (137-145)
--- NOTE | 2024-10-20 07:58 | PM.IMPN ---
Progress Note: A&P Assessment and Plan (1) Metabolic acidosis: Code(s): E87.20 - Acidosis, unspecified Status: Acute Assessment and Plan: - ABG: pH 7.253, pCO2 34.4, pO2 65, HCO3 14.8, repeat ABG showing pH 7.243, pCo2 34.8, pO2 84, HCO3 14.7. Metabolic acidosis likely secondary to CKD. Started on Bicarb drip. (2) Hypoxic respiratory failure: Code(s): J96.91 - Respiratory failure, unspecified with hypoxia Status: Acute Assessment and Plan: - SpO2 87% in the ED on room air, started on oxygen supplementation. Continue to wean for spo2 > 90% - Suspected cause: Flu A and pneumonia - ABG: pH 7.253, pCO2 34.4, pO2 65, HCO3 14.8, repeat ABG showing pH 7.243, pCo2 34.8, pO2 84, HCO3 14.7. Metabolic acidosis likely secondary to CKD. Started on Bicarb drip. - EKG: sinus rhthym with HR 61 - D dimer: o.47 (WNL) - BNP elevated at 3910, possible CHF however BNP unreliable given patients kidney function - Echo ordered - Chest XR:CXR: Lingular and right middle lobe pneumonia. (3) Pneumonia: Code(s): J18.9 - Pneumonia, unspecified organism Status: Acute Assessment and Plan: CXR: Lingular and right middle lobe pneumonia. - started on CAP tx: azithromycin ceftriaxone on 10/20 - Viral PCR: positive for FLU A, started on tamiflu (course complete on 10/24) - Blood cultures obtained on 10/19: Pending - Consider ordering legionella, mycoplasma and pneumococcal - Oxygen supplementation: 2L NC, baseline room air. Wean oxygen for spo2 > 90% - Monitor vital signs, I&Os, neuro status and patient is a fall risk - Follow WBC, serum electrolytes, temperature curves and cultures (4) Chronic kidney disease, stage IV (severe): Code(s): N18.4 - Chronic kidney disease, stage 4 (severe) Status: Acute Assessment and Plan: Acute on chronic baseline around 3.0-4.0, creatinine on admission 4.7. Last seen by nephrology, Dr. Rajput on 09/24. Has appointment with General Surgery for evaluation of PD catheter placement on 10/27/24 - BUN/Cr 39/4.9 on am labs - Avoid nephrotoxic medications - Renally dose medications - Monitor I/O - Nephrology consulted, appreciate recommendations (5) CHF (congestive heart failure): Code(s): I50.9 - Heart failure, unspecified Status: Acute Assessment and Plan: - current medications: Lisinopril 2.5 mg daily, imdur 50 mg daily, carvedilol 25 mg daily - BNP: 3910 however not fully reliable given patients kidney function - ABG: pH 7.253, pCO2 34.4, pO2 65, HCO3 14.8, repeat ABG showing pH 7.243, pCo2 34.8, pO2 84, HCO3 14.7. Metabolic acidosis likely secondary to CKD. Started on Bicarb drip. - EKG: sinus rhthym with HR 61 - Chest XR:CXR: Lingular and right middle lobe pneumonia. - Echo ordered - Monitor vital signs, I&Os, BUN/creatinine, daily weights, neuro status and patient is a fall risk - Monitor serum electrolytes, Keep serum Potassium>4 and serum Magnesium>2 and CBC (6) Type 1 diabetes mellitus: Qualifiers: Diabetes mellitus complication status: without complication Qualified Code(s): E10.9 - Type 1 diabetes mellitus without complications Code(s): E10.9 - Type 1 diabetes mellitus without complications Status: Chronic Assessment and Plan: - hypoglycemia protocol - POC blood glucose ACHS - home medication - lispro on continuous glucose pump - correct regimen ordered - continuous glucose pump (7) Hypertension: Code(s): I10 - Essential (primary) hypertension Status: Chronic Assessment and Plan: Chronic, continue home medications - amlodipine 10 mg daily - lisinopril 2.5 mg daily - imdur 50 mg daily - carvedilol 25 mg daily - monitor (8) CAD (coronary artery disease): Code(s): I25.10 - Atherosclerotic heart disease of [place] coronary artery without angina pectoris Status: Acute Assessment and Plan: Continue Coreg, Plavix, isosorbide mononitrate, (9) Hypothyroidism: Code(s): E03.9 - Hypothyroidism, unspecified Status: Acute Assessment and Plan: Chronic, continue home medications - synthroid 50 mcg daily - TSH 3.390 Time Spent With Patient Time with patient: Greater than 35 minutes Subjective Date/time seen: 10/20/24 07:58 Interval history: 49-year-old male smoker with past medical history of type 1 diabetes, dyslipidemia, hypertension, coronary artery disease, neuropathy, CKD, hypothyroidism, melanoma and recurrent sebaceous cysts who presents to the hospital for shortness of breath. Patient is pleasant male comfortably in bed with family at bedside. He states that his shortness of breath has significantly improved since admission and he is no longer having to lean forward to breathe. He continues to endorse a dry cough. Remains on 3 L nasal at this time. ABG shows patient has a metabolic acidosis and was started on a bicarb drip. Nephrology evaluated patient as he has CKD stage 4. Patient states he has to start dialysis soon and has an appoint surgery to undergo a port placement on October 27. Patient has no other complaints denying chest pain, palpitations nausea/ vomiting abdominal pain. Review of Systems Review of Systems: All systems reviewed & are unremarkable except as noted in HPI and below Exam Narrative: AF HR 75 RR 18 SPO2 95 3L NC (RA baseline) BP 136/62 General: male in no acute respiratory distress who is nontoxic appearing, lying semi recumbent in bed. HEENT: Normocephalic. Atraumatic. Extraocular movement intact. Sclera clear and anicteric. No facial asymmetry. Chest: Lungs are diminished to auscultation bilaterally. No wheezes or crackles. CV: Heart was regular rate and rhythm. S1/S2. No murmurs, gallops, or rubs. Abd: Abdomen was soft. Nontender. Nondistended. Positive bowel sounds. No organomegaly or masses. Ext: No clubbing, cyanosis, or edema. 2+ DP pulses bilaterally. Neuro: Patient is alert and oriented x4. Speech is clear. Objective Data Vital Signs Vital Signs: Vital Signs - 24 hr 10/19/24 11:07 10/19/24 11:18 10/19/24 11:20 Temperature 97.8 F Pulse Rate 66 Respiratory Rate 16 Blood Pressure 117/52 L Pulse Oximetry 88 L 87 L 96 Oxygen Delivery Room Air Room Air Nasal Cannula Oxygen Flow Rate 2 Fraction of Inspired Oxygen 10/19/24 11:30 10/19/24 11:45 10/19/24 11:51 Temperature 97.8 F Pulse Rate 63 64 Respiratory Rate 23 H 28 H Blood Pressure 121/58 L 120/62 Pulse Oximetry 96 96 96 Oxygen Delivery Nasal Cannula Oxygen Flow Rate 2 Fraction of Inspired Oxygen 10/19/24 12:15 10/19/24 13:01 10/19/24 15:42 Temperature 98.0 F Pulse Rate 64 67 82 Respiratory Rate 28 H 39 H 32 H Blood Pressure 118/66 132/69 143/65 H Pulse Oximetry 95 95 93 Oxygen Delivery Oxygen Flow Rate Fraction of Inspired Oxygen 10/19/24 15:46 10/19/24 16:01 10/19/24 16:16 Temperature Pulse Rate 76 80 77 Respiratory Rate 25 H 24 H 19 Blood Pressure 144/69 H 149/77 H 141/76 H Pulse Oximetry 93 93 94 Oxygen Delivery Oxygen Flow Rate Fraction of Inspired Oxygen 10/19/24 16:31 10/19/24 17:25 10/19/24 19:58 Temperature 100.1 F H 99.3 F Pulse Rate 77 80 82 Respiratory Rate 24 H 32 H 18 Blood Pressure 140/67 152/71 H 152/71 H Pulse Oximetry 94 94 92 Oxygen Delivery Oxygen Flow Rate Fraction of Inspired Oxygen 10/19/24 19:59 10/19/24 20:25 10/19/24 20:40 Temperature 99.3 F Pulse Rate 82 Respiratory Rate 18 Blood Pressure 152/71 H Pulse Oximetry 92 93 96 Oxygen Delivery Nasal Cannula Nasal Cannula Oxygen Flow Rate 1 3 Fraction of Inspired Oxygen 10/19/24 20:54 10/19/24 21:05 10/19/24 21:17 Temperature Pulse Rate 85 85 89 Respiratory Rate 19 20 Blood Pressure Pulse Oximetry Oxygen Delivery Oxygen Flow Rate Fraction of Inspired Oxygen 10/19/24 21:40 10/19/24 21:41 10/19/24 21:46 Temperature Pulse Rate 85 Respiratory Rate 20 Blood Pressure Pulse Oximetry 92 Oxygen Delivery Nasal Cannula Oxygen Flow Rate 3 Fraction of Inspired Oxygen 10/19/24 22:00 10/20/24 00:00 10/20/24 00:00 Temperature 99.3 F 99.7 F H 99.7 F H Pulse Rate 82 85 85 Respiratory Rate 18 18 18 Blood Pressure 152/71 H 151/51 H 151/51 H Pulse Oximetry 92 96 96 Oxygen Delivery Oxygen Flow Rate Fraction of Inspired Oxygen 10/20/24 00:00 10/20/24 02:03 10/20/24 02:11 Temperature Pulse Rate 87 82 85 Respiratory Rate 20 20 Blood Pressure Pulse Oximetry Oxygen Delivery Oxygen Flow Rate Fraction of Inspired Oxygen 10/20/24 04:00 10/20/24 04:00 10/20/24 04:00 Temperature 97.5 F L 97.5 F L Pulse Rate 75 75 75 Respiratory Rate 18 18 Blood Pressure 130/65 130/65 Pulse Oximetry 96 96 Oxygen Delivery Oxygen Flow Rate Fraction of Inspired Oxygen 10/20/24 06:00 10/20/24 07:43 10/20/24 07:43 Temperature 98.5 F Pulse Rate 71 77 Respiratory Rate 18 20 Blood Pressure 134/55 L Pulse Oximetry 97 95 Oxygen Delivery Nasal Cannula Oxygen Flow Rate 2 Fraction of Inspired Oxygen Intake/Output Intake/Output: Intake & Output 10/17/24 10/18/24 10/19/24 10/20/24 23:59 23:59 23:59 23:59 Intake Total 1000 Output Total 1225 Balance 1000 -1225 Meds/Results Medications: Active Medications Generic Name Dose Route Start Last Admin Trade Name Freq PRN Reason Stop Dose Admin Acetaminophen 650 mg 10/19/24 16:26 10/19/24 21:55 Acetaminophen 325 Mg Tablet PO 650 mg Q4H PRN Administration Mild Pain (1-3) or Fever Albuterol/Ipratropium 3 ml 10/20/24 02:00 10/20/24 07:43 Ipratropium 0.5 Mg/Albuterol Sulfate 2.5 Mg Ampul.Neb 3 Ml INHALATION 3 ml Q6HRT KALANI Administration Alprazolam 0.25 mg 10/19/24 20:24 Alprazolam (*Crx) 0.25 Mg Tablet PO TID PRN Anxiety Amlodipine Besylate 10 mg 10/20/24 09:00 Amlodipine Besylate 10 Mg Tablet PO DAILY KALANI Atorvastatin Calcium 40 mg 10/19/24 21:00 10/19/24 21:46 Atorvastatin 40 Mg Tablet PO 40 mg HS KALANI Administration Carvedilol 25 mg 10/19/24 21:00 10/19/24 21:46 Carvedilol 25 Mg Tablet PO 25 mg Q12HR KALANI Administration Clopidogrel Bisulfate 75 mg 10/20/24 09:00 Clopidogrel Bisulfate 75 Mg Tablet PO DAILY KALANI Dextrose 12.5 gm 10/19/24 16:26 Dextrose 50% 25 Gm/50 Ml Syringe IV PUSH PRN PRN Hypoglycemia Protocol Docusate Sodium 100 mg 10/20/24 09:00 Docusate Sodium 100 Mg Capsule PO DAILY KALANI Glucagon 1 mg 10/19/24 16:26 Glucagon For Inj 1 Mg Vial IM PRN PRN Hypoglycemia Protocol Glucose 15 gm 10/19/24 16:26 Glucose Oral Gel 15 Gm Of Glucse In 37.5 Gm Tube PO PRN PRN Hypoglycemia Protocol Dextrose 1,000 mls @ 100 mls/hr 10/19/24 16:26 Dextrose 5% 1,000 Ml IVPB PRN PRN Hypoglycemia Protocol Lactated Ringer's 1,000 mls @ 100 mls/hr 10/19/24 21:45 10/19/24 23:11 Lr - Lactated Ringers Iv IV CONT 100 mls/hr .Q10H KALANI Administration Isosorbide Mononitrate 60 mg 10/20/24 09:00 Isosorbide Mononitrate 60 Mg Tab.Er.24h PO DAILY KALANI Levothyroxine Sodium 50 mcg 10/20/24 06:30 10/20/24 05:43 Levothyroxine Sodium 50 Mcg Tablet PO 50 mcg DAILY@0630 KALANI Administration Lisinopril 2.5 mg 10/20/24 09:00 Lisinopril 2.5 Mg Tablet PO DAILY KALANI Loratadine 10 mg 10/20/24 09:00 Loratadine 10 Mg Tablet PO DAILY KALANI Oseltamivir Phosphate 30 mg 10/20/24 09:00 Oseltamivir Phosphate 30 Mg Capsule PO 10/24/24 08:59 DAILY KALANI Pantoprazole Sodium 40 mg 10/19/24 20:35 10/19/24 21:46 Pantoprazole 40 Mg Tablet PO 40 mg BID KALANI Administration Perflutren Lipid Microsphere 0 ml 10/19/24 16:40 Perflutren Lipid Microspheres 1.5 Ml Vial Diluted To 10 Ml Total Volume IV PUSH 10/22/24 16:41 ONCE PRN adequate visualization Protocol Pregabalin 75 mg 10/19/24 20:35 10/19/24 21:45 Pregabalin (*Crx) 75 Mg Capsule PO 75 mg BID KALANI Administration Radiology Results: ITS Impressions Chest X-Ray 10/19/24 12:27 IMPRESSION: 1. Lingular and right middle lobe pneumonia. Labs Labs: Laboratory Results - last 24 hr 10/19/24 10/19/24 10/19/24 11:39 12:14 12:28 WBC 4.6 RBC 3.38 L Hgb 9.9 L Hct 31.0 L MCV 91.7 MCH 29.3 MCHC 31.9 L RDW 14.3 Plt Count 85 L MPV 12.0 H Immature Gran % (Auto) 0.2 Neut % (Auto) 77.1 H Lymph % (Auto) 9.5 L Martin % (Auto) 9.9 H Eos % (Auto) 2.4 Baso % (Auto) 0.9 Lymph # (Auto) 0.43 L Martin # (Auto) 0.5 Eos # (Auto) 0.1 Baso # (Auto) 0.0 Abs Immat Gran (auto) 0.01 Absolute Neuts (auto) 3.5 Absolute Nucleated RBC 0.000 Nucleated RBC % 0.0 Platelet Estimate Decreased Large Platelets Present % Immature Plt Fraction 11.0 Schistocytes None seen PT 13.7 INR 1.0 APTT 33.2 D-Dimer 0.47 Puncture Site ABG pH ABG pCO2 ABG pO2 ABG PO2/FiO2 Ratio ABG HCO3 ABG O2 Saturation ABG O2 Content ABG Base Excess A-a Gradient Oxyhemoglobin Total Hemoglobin O2 Delivery Device O2 Liters/Min FiO2 Sodium 136 L Potassium 4.6 Chloride 113 H Carbon Dioxide 16 L Anion Gap 7 BUN 38 H Creatinine 4.70 H Estim Creat Clear Calc 18 Estimated GFR 13 L Glucose 178 H POC Capillary Glucose Lactic Acid < 0.5 L Calcium 8.6 Phosphorus 5.8 H Magnesium 1.6 Total Bilirubin 0.4 AST 24 ALT 22 Alkaline Phosphatase 100 Troponin I < 0.012 NT-Pro-B Natriuret Pep 3910 H Total Protein 7.0 Albumin 3.7 Lipase 46 TSH (Reflex) 3.390 Influenza A (RT-PCR) Positive A Influenza B (RT-PCR) Negative RSV (RT-PCR) Negative SARS-CoV-2 RNA (RT-PCR) Negative 10/19/24 10/19/24 10/19/24 15:02 18:06 20:08 WBC RBC Hgb Hct MCV MCH MCHC RDW Plt Count MPV Immature Gran % (Auto) Neut % (Auto) Lymph % (Auto) Martin % (Auto) Eos % (Auto) Baso % (Auto) Lymph # (Auto) Martin # (Auto) Eos # (Auto) Baso # (Auto) Abs Immat Gran (auto) Absolute Neuts (auto) Absolute Nucleated RBC Nucleated RBC % Platelet Estimate Large Platelets % Immature Plt Fraction Schistocytes PT INR APTT D-Dimer Puncture Site ABG pH ABG pCO2 ABG pO2 ABG PO2/FiO2 Ratio ABG HCO3 ABG O2 Saturation ABG O2 Content ABG Base Excess A-a Gradient Oxyhemoglobin Total Hemoglobin O2 Delivery Device O2 Liters/Min FiO2 Sodium Potassium Chloride Carbon Dioxide Anion Gap BUN Creatinine Estim Creat Clear Calc Estimated GFR Glucose POC Capillary Glucose 156 H 190 H Lactic Acid Calcium Phosphorus Magnesium Total Bilirubin AST ALT Alkaline Phosphatase Troponin I < 0.012 NT-Pro-B Natriuret Pep Total Protein Albumin Lipase TSH (Reflex) Influenza A (RT-PCR) Influenza B (RT-PCR) RSV (RT-PCR) SARS-CoV-2 RNA (RT-PCR) 10/19/24 10/20/24 20:27 05:30 WBC 4.4 L RBC 3.39 L Hgb 10.0 L Hct 31.8 L MCV 93.8 MCH 29.5 MCHC 31.4 L RDW 14.5 Plt Count 96 L MPV 12.2 H Immature Gran % (Auto) 0.5 Neut % (Auto) 65.5 Lymph % (Auto) 16.2 L Martin % (Auto) 15.1 H Eos % (Auto) 1.8 Baso % (Auto) 0.9 Lymph # (Auto) 0.71 L Martin # (Auto) 0.7 H Eos # (Auto) 0.1 Baso # (Auto) 0.0 Abs Immat Gran (auto) 0.02 Absolute Neuts (auto) 2.9 Absolute Nucleated RBC 0.000 Nucleated RBC % 0.0 Platelet Estimate Large Platelets % Immature Plt Fraction 9.0 Schistocytes PT INR APTT D-Dimer Puncture Site Left radial ABG pH 7.253 L* ABG pCO2 34.4 L ABG pO2 65.0 L ABG PO2/FiO2 Ratio 2.71 ABG HCO3 14.8 L ABG O2 Saturation 89.8 L ABG O2 Content 14.3 L ABG Base Excess -11.3 A-a Gradient 65.2 Oxyhemoglobin 90.8 Total Hemoglobin 11.2 L O2 Delivery Device Nasal cannula O2 Liters/Min 1.0 FiO2 24 Sodium 137 Potassium 4.4 Chloride 113 H Carbon Dioxide 16 L Anion Gap 8 BUN 39 H Creatinine 4.90 H Estim Creat Clear Calc 18 Estimated GFR 13 L Glucose 139 H POC Capillary Glucose Lactic Acid Calcium 8.5 Phosphorus Magnesium Total Bilirubin AST ALT Alkaline Phosphatase Troponin I NT-Pro-B Natriuret Pep Total Protein Albumin Lipase TSH (Reflex) Influenza A (RT-PCR) Influenza B (RT-PCR) RSV (RT-PCR) SARS-CoV-2 RNA (RT-PCR) Quality VTE Prophylaxis VTE prophylaxis: mechanical ordered
[2024-10-20] MEDS: CLOPIDOGREL BISULFATE 75 MG TABLET PO (08:39)
[2024-10-20] MEDS: amLODIPine BESYLATE 10 MG TABLET PO (08:39)
[2024-10-20] MEDS: carvediloL 25 MG TABLET PO ×2 (08:39→20:12)
[2024-10-20] MEDS: LORATADINE 10 MG TABLET PO (08:40)
[2024-10-20] MEDS: lisinopriL 2.5 MG TABLET PO (08:40)
[2024-10-20] MEDS: OSELTAMIVIR PHOSPHATE 30 MG CAPSULE PO (08:40)
[2024-10-20] MEDS: ISOSORBIDE MONONITRATE 60 MG TAB.ER.24H PO (08:40)
[2024-10-20] MEDS: PREGABALIN (*CRX) 75 MG CAPSULE PO ×2 (08:40→17:38)
[2024-10-20] MEDS: PANTOPRAZOLE 40 MG TABLET PO ×2 (08:40→17:38)
[2024-10-20] MEDS: LACTATED RINGERS 1,000 ML 100 ML IV CONT (08:41)
[2024-10-20 09:17] LABS: Glucose Point of Care 115 mg/dl (65-105)
[2024-10-20 09:25] LABS: Alveolar/Arterial O2 Gradient 102.8 mmHg; Base Excess ABG -11.7 mEq/l (+/-2.0); Fractional Inspired Oxygen 32 %; HCO3 ABG 14.7 mEq/l (22.0-26.0); Oxygen Content ABG 13.6 %vol (16.0-22.0); Oxygen Saturation ABG 94.8 % (95.0-100.0); Oxyhemoglobin 95.6 % THb (90.0-100.0); PCO2 ABG 34.8 mmHg (35.0-45.0); PO2 ABG 84.6 mmHg (80.0-100.0); PO2 FiO2 Ratio Arterial Blood 2.64 %
[2024-10-20 09:33] LABS: Device NASAL CANNULA; Site Drawn LEFT BRACHIAL; pH ABG 7.243 (7.350-7.450)
--- NOTE | 2024-10-20 09:41 | P.CONNP_ITS ---
Assessment and Plan Assessment and plan (1) TRIP (acute kidney injury): Code(s): N17.9 - Acute kidney failure, unspecified Status: Acute Assessment and Plan: * is this acute injury or just progression of #2(?) * if acute kidney injury, possible etiologies include: * influenza * pneumonia * hypoxia * concurrent JAD-I use * pre-renal factors * check urine studies, CPK, and renal ultrasound * trial of gentle IVFs (consider adding bicarb to fluids) * follow trend of repeat labs and UOP (2) Chronic kidney disease, stage IV (severe): Code(s): N18.4 - Chronic kidney disease, stage 4 (severe) Status: Acute Assessment and Plan: * slow progression over the last several months * last creatinine prior to admission was 4.0mg/dl * due to to his diabetes, hypertension, and extensive vascular disease (hyperlipidemia, coronary artery disease, and smoking) * referred to dialysis education and interested in peritoneal dialysis * has appointment with General Surgery for evaluation of PD catheter placement on 10/27/24 (3) Hypoxic respiratory failure: Code(s): J96.91 - Respiratory failure, unspecified with hypoxia Status: Acute Assessment and Plan: * noted hypoxia (87%) on RA * presumably secondary to influenza A and possibly pneumonia * CXR results noted * wean supplemental oxygen as tolerated (4) Pneumonia: Code(s): J18.9 - Pneumonia, unspecified organism Status: Acute Assessment and Plan: * as noted by admission imaging: * CXR: lingular and right middle lobe pneumonia * positive for influenza by viral testing * on antibiotics and tamiflu * follow culture data * supplemental oxygen as needed - wean as tolerated * continue supportive therapy (5) Hypertension: Code(s): I10 - Essential (primary) hypertension Status: Chronic Assessment and Plan: * hold JAD-I for now * reasonable control at this time * follow trend of hemodynamics (6) Type 1 diabetes mellitus: Qualifiers: Diabetes mellitus complication status: without complication Qualified Code(s): E10.9 - Type 1 diabetes mellitus without complications Code(s): E10.9 - Type 1 diabetes mellitus without complications Status: Chronic Assessment and Plan: * on insulin pump * follow accu-cheks I will continue to follow the patient with you while he remains hospitalized and make further recommendations as deemed necessary. Thank you for allowing me to participate in the care of this patient. History of Present Illness Reason for Consult Consult date: 10/20/24 Reason for consult: acute renal failure (on chronic kidney disease versus progression of CKD) Chief Complaint Chief complaint: FLU Review of Systems 2 Review of Systems: As per HPI. ANDREWS Past Medical History Medical History Hyperparathyroidism Vitamin D deficiency Hypertension Chronic fatigue Peripheral neuropathy Subcutaneous mass of neck excised Diabetes type 2, controlled Restless leg syndrome History of melanoma History of myocardial infarction Skin cyst Melanoma Left cheek and nose Nocturia Mild prostate enlargement on CT December 2022 CKD (chronic kidney disease) stage 4, GFR 15-29 ml/min Abscess of skin Ear pain, right Hypothyroidism Type 1 diabetes mellitus Neuropathy Hyperlipidemia Long-term insulin use with insulin pump COPD (chronic obstructive pulmonary disease) Vision loss Heart disease CAD (coronary artery disease) Anxiety Surgical History Surgical History Hx of excision of mass Excision 2.5 cm subcutaneous mass of the neck with no margin 01/02/24 History of incision and drainage Multiple previous I&D's of bilateral groin abscesses for years History of heart artery stent x4 Family History Family History Mother Family history of cardiovascular disease Other Diabetes mellitus Family history of malignant neoplasm Hypertension Social History Social History Smoking packs per day: 2 Smoking cigarettes per day: 40.0 Years smoked: 25 Smoking pack-years: 50.00 Smoking status: Former smoker Tobacco type: cigarettes Second hand tobacco smoke exposure: Yes Smoking end date: 10/01/24 Alcohol intake: former Drinks per week: 6 Substance use: never Substance use type: does not use Do You Feel Safe in your Home?: Yes Lack of Transportation: No Lack of Food: Never True Current Housing: I Have Housing Concerned About Future Housing: No Difficulty Paying Gas/Electric Bills: No Difficulty Paying for Meds: No Currently Unemployed: No Education: High School Diploma/GED Difficulty w/ Childcare or Family Care: No Living arrangements: alone Occupation/Education: occupation Additional occupation/education comments: [employer] Gender identity (if verbalized by the patient): Male Spiritual care concerns: No Meds Home Medications and Allergies Home Medications ?Medication ?Instructions ?Recorded ?Confirmed ?Type clopidogrel 75 mg tablet 75 mg PO DAILY 06/09/20 10/19/24 History cetirizine 10 mg tablet (Zyrtec) 10 mg PO DAILY 08/09/22 10/19/24 History albuterol sulfate 90 mcg/actuation 2 inh inhalation Q4H PRN shortness 08/07/23 10/19/24 Rx aerosol inhaler (Ventolin HFA) of breath or wheezing #6.7 grams insulin lispro 100 unit/mL 100 unit continuous subcutaneous 01/17/24 10/19/24 Rx subcutaneous solution (Humalog infusion DAILY #90 mL U-100 Insulin) atorvastatin 40 mg tablet 40 mg PO DAILY #90 tabs 05/05/24 10/19/24 Rx blood-glucose sensor (FreeStyle #2 ea 05/06/24 10/19/24 Rx Mita 3 Sensor device) alprazolam 0.25 mg tablet (Xanax) 0.25 mg PO DAILY PRN Anxiety #30 06/02/24 10/19/24 Rx tabs carvedilol 25 mg tablet 25 mg PO BID #180 tabs 07/08/24 10/19/24 Rx pantoprazole 40 mg tablet,delayed 40 mg PO BID #180 tabs 08/01/24 10/19/24 Rx release lisinopril 2.5 mg tablet 2.5 mg PO DAILY #90 tabs 08/12/24 10/19/24 Rx levothyroxine 50 mcg tablet 50 mcg PO DAILY #90 tabs 08/18/24 10/19/24 Rx blood-glucose sensor (FreeStyle #3 ea 09/22/24 10/19/24 Rx Mita 3 Plus Sensor device) amlodipine 10 mg tablet 10 mg PO DAILY #90 tabs 09/25/24 10/19/24 Rx pregabalin 75 mg capsule 75 mg PO BID #180 caps 09/26/24 10/19/24 Rx isosorbide mononitrate 60 mg 60 mg PO DAILY 10/19/24 10/19/24 History tablet,extended release 24 hr Allergies Allergy/AdvReac Type Severity Reaction Status Date / Time guaifenesin Allergy Severe Dyspnea / Verified 10/19/24 10:58 SOB Vital Signs Vital Signs Temp Pulse Resp BP Pulse Ox O2 Del Method O2 Flow Rate 10/20/24 08:49 82 151/64 H 97 10/20/24 08:39 81 10/20/24 08:00 97.7 F 74 17 128/58 L 96 10/20/24 07:59 78 20 10/20/24 07:43 77 20 10/20/24 07:43 95 Nasal Cannula 2 10/20/24 06:00 98.5 F 71 18 134/55 L 97 10/20/24 04:00 75 10/20/24 04:00 97.5 F L 75 18 130/65 96 10/20/24 04:00 97.5 F L 75 18 130/65 96 10/20/24 02:11 85 20 10/20/24 02:03 82 20 10/20/24 00:00 87 10/20/24 00:00 99.7 F H 85 18 151/51 H 96 10/20/24 00:00 99.7 F H 85 18 151/51 H 96 10/19/24 22:00 99.3 F 82 18 152/71 H 92 10/19/24 21:46 85 10/19/24 21:41 20 10/19/24 21:40 92 Nasal Cannula 3 10/19/24 21:17 89 10/19/24 21:05 85 20 10/19/24 20:54 85 19 10/19/24 20:40 96 Nasal Cannula 3 10/19/24 20:25 93 Nasal Cannula 1 10/19/24 19:59 99.3 F 82 18 152/71 H 92 10/19/24 19:58 99.3 F 82 18 152/71 H 92 10/19/24 17:25 100.1 F H 80 32 H 152/71 H 94 10/19/24 16:31 77 24 H 140/67 94 10/19/24 16:16 77 19 141/76 H 94 10/19/24 16:01 80 24 H 149/77 H 93 10/19/24 15:46 76 25 H 144/69 H 93 10/19/24 15:42 98.0 F 82 32 H 143/65 H 93 10/19/24 13:01 67 39 H 132/69 95 10/19/24 12:15 64 28 H 118/66 95 10/19/24 11:51 96 Nasal Cannula 2 10/19/24 11:45 64 28 H 120/62 96 Exam 2 Narrative: GENERAL APPEARANCE: well developed well nourished male in no acute distress HEENT: normocephalic, atraumatic, normal conjunctiva and sclera, nares patient NECK: no lymphadenopathy, thyromegaly, or JVD MOUTH: normal lips, teeth, and gums CARDIOVASCULAR: RRR, normal S1 and S2, no rub RESPIRATORY: clear anteriorly; coarse at bases ABDOMEN: soft, nontender, nondistended, positive bowel sounds present EXTREMITIES: no evidence of cyanosis, clubbing, or edema NEUROLOGICAL: alert and oriented x 3; CN II - XII intact bilaterally; no focal deficits noted Results Lab Results 10/20/24 05:30 10/20/24 05:30 Lab results: Most recent lab results ABG pH 7.243 (7.350-7.450) L* 10/20/24 09:20 ABG pCO2 34.8 mmHg (35.0-45.0) L 10/20/24 09:20 ABG pO2 84.6 mmHg (80.0-100.0) 10/20/24 09:20 ABG HCO3 14.7 mEq/l (22.0-26.0) L 10/20/24 09:20 ABG O2 Saturation 94.8 % (95.0-100.0) L 10/20/24 09:20 Calcium 8.5 mg/dL (8.4-10.2) 10/20/24 05:30 Phosphorus 5.8 mg/dL (2.5-4.5) H 10/19/24 11:39 Magnesium 1.6 mg/dL (1.6-2.3) 10/19/24 11:39
[2024-10-20] MEDS: AZITHROMYCIN 500 MG/NS 250 ML 500 MG/250 ML BAG 250 MG IVPB (10:08)
[2024-10-20] MEDS: SODIUM BICARBONATE 8.4% 150 MEQ in DEXTROSE 5% 1,000 ML 950 ML 50 MEQ IV CONT (11:50)
[2024-10-20 12:13] LABS: Glucose Point of Care 159 mg/dl (65-105)
[2024-10-20 14:23] LABS: Add Urine Microscopic? YES; Appearance Urine Clear (Clear); Bacteria Urine None Seen /hpf; Bilirubin Urine Negative (Negative); Blood Urine 1+ (Negative); Color Urine Yellow (Yellow); Glucose Urine UA Trace mg/dL (Negative); Ketones Urine Negative (Negative); Leukocyte Esterase Ur Negative LEU/UL (Negative); Nitrate Urine Negative (Negative); Protein Urine 3+ mg/dL (Negative); RBC Urine 0-2 /hpf (0-2); Specific Grav Ur 1.012 (1.001-1.035); Squamous Epithelial Cell Urine Occasional /hpf (Few); Urobilinogen Urine 0.2 mg/dL (<2.0); WBC Urine 0-5 /hpf (0-3)
[2024-10-20 14:28] LABS: Creatinine Urine 96.2 mg/dL; Total Protein Urine Random > 200 mg/dL
[2024-10-20 14:29] LABS: Ur Ttl Prot Creatinine Ratio > 2.08 mg/mg (0-0.20)
[2024-10-20 14:30] LABS: Creatinine Urine 95.9 mg/dL; Urea Random Urine 365 MG/DL
[2024-10-20 14:32] LABS: Sodium Urine Random 34 meq/L
[2024-10-20 14:33] LABS: Total Protein Urine Random > 200 mg/dL
[2024-10-20 15:05] LABS: Eosinophil Urine None Seen % (None Seen); Urine Eos QC 2nd Tech Confirmed
[2024-10-20 17:01] LABS: Glucose Point of Care 150 mg/dl (65-105)
[2024-10-20] MEDS: ATORVASTATIN 40 MG TABLET PO (20:12)
[2024-10-20] MEDS: ACETAMINOPHEN 325 MG TABLET 650 MG PO (20:12)
[2024-10-20 20:22] LABS: Glucose Point of Care 193 mg/dl (65-105)
[2024-10-21] VITALS (19 sets, daily range): BP systolic 124–160; BP diastolic 58–70; PULSE 76–93; RESP 16–20; TEMP 36.3–37.8; O2SAT 92–98
[2024-10-21] MEDS: IPRATROPIUM 0.5 MG/ALBUTEROL SULFATE 2.5 MG AMPUL.NEB 3 ML INHALATION ×3 (02:34→14:06)
[2024-10-21] MEDS: LEVOTHYROXINE SODIUM 50 MCG TABLET PO (05:36)
[2024-10-21 06:17] LABS: Hematocrit 29.9 % (42.0-52.0); Hemoglobin 9.4 g/dL (14.0-18.0); Immature Platelet Fraction Pct 8.9 % (0.9-11.2); Mean Corpuscular HGB Conc 31.4 g/dl (32-36); Mean Corpuscular Volume 92.3 fl (80-100); Platelet Count Result 98 k/mm3 (150-375); Red Blood Count 3.24 M/mm3 (4.6-6.20); Red Cell Distribution Width 14.5 % (11.5-14.5); White Blood Count 5.2 K/mm3 (4.5-10.0)
[2024-10-21 06:25] LABS: Alanine Aminotransferase 15 U/L (6-50); Albumin Level 3.6 g/dL (3.5-5.1); Alkaline Phosphatase 86 U/L (38-126); Anion Gap 8 mmol/L (4-12); Aspartate Amino Transferase 21 U/L (17-59); Bilirubin,Total 0.4 mg/dL (0.2-1.3); Blood Urea Nitrogen 44 mg/dL (9-20); Calcium 8.6 mg/dL (8.4-10.2); Carbon Dioxide 17 mmol/L (22-30); Chloride 113 mmol/L (98-107); Estimated CRCL calculation 17 ml/min; Estimated Glomerular Filt Rate 12; Glucose 140 mg/dL (65-110); Magnesium 1.7 mg/dL (1.6-2.3); Phosphorus 5.1 mg/dL (2.5-4.5); Potassium 4.3 mmol/L (3.4-5.0); Sodium 138 mmol/L (137-145)
[2024-10-21 06:26] LABS: Creatine Kinase 277 U/L (55-170)
[2024-10-21 07:00] LABS: Band Neutrophils Percent 14 % (0-6); Eosinophils Absolute Manual 0.05 K/mm3 (0.02-0.50); Eosinophils Percent Manual 1 % (0-4); Lymphocytes Absolute Manual 0.98 K/mm3 (1.1-4.5); Lymphocytes Percent Manual 19 % (18-44); Monocytes Absolute Manual 0.15 K/mm3 (0.1-0.90); Monocytes Percent Manual 3 % (3-9); Neutrophils Percent Manual 63 % (46-73); Platelet Estimate Decreased (Adequate); Schistocytes None Seen; Total Cells Counted 100
--- NOTE | 2024-10-21 07:27 | P.PNIM_ITS ---
Progress Note: A&P Assessment and Plan (1) Metabolic acidosis: Code(s): E87.20 - Acidosis, unspecified Status: Acute Assessment and Plan: ABG: pH 7.253, pCO2 34.4, pO2 65, HCO3 14.8, repeat ABG showing pH 7.243, pCo2 34.8, pO2 84, HCO3 14.7. Metabolic acidosis likely secondary to CKD. Started on 150 MEQ Bicarb IV on 10/20, on 10/21 chemistry bicarb remains low at 17. Bicarb changed to 75 MEQ IV and PO bicarb 650 mg BID. Contiue to monitor Co2 on am chemistry. (2) Hypoxic respiratory failure: Code(s): J96.91 - Respiratory failure, unspecified with hypoxia Status: Acute Assessment and Plan: - SpO2 87% in the ED on room air, started on oxygen supplementation. Remains on 2L NC at this time. Continue to wean for spo2 > 90% - Suspected cause: Flu A and pneumonia - ABG: pH 7.253, pCO2 34.4, pO2 65, HCO3 14.8, repeat ABG showing pH 7.243, pCo2 34.8, pO2 84, HCO3 14.7. Metabolic acidosis likely secondary to CKD. Started on Bicarb drip. - EKG: sinus rhthym with HR 61 - D dimer: o.47 (WNL) - BNP elevated at 3910, possible CHF however BNP unreliable given patients kidney function - Echo ordered - Chest XR:CXR: Lingular and right middle lobe pneumonia. (3) Pneumonia: Code(s): J18.9 - Pneumonia, unspecified organism Status: Acute Assessment and Plan: CXR: Lingular and right middle lobe pneumonia. - started on CAP tx: azithromycin ceftriaxone on 10/20 - Viral PCR: positive for FLU A, started on tamiflu (course complete on 10/24) - Blood cultures obtained on 10/19: NGTD - Consider ordering legionella, mycoplasma and pneumococcal - Oxygen supplementation: 2L NC, baseline room air. Wean oxygen for spo2 > 90% - Monitor vital signs, I&Os, neuro status and patient is a fall risk - Follow WBC, serum electrolytes, temperature curves and cultures (4) Chronic kidney disease, stage IV (severe): Code(s): N18.4 - Chronic kidney disease, stage 4 (severe) Status: Acute Assessment and Plan: Acute on chronic baseline around 3.0-4.0, creatinine on admission 4.7. Last seen by nephrology, Dr. Rajput on 09/24. Has appointment with General Surgery for evaluation of PD catheter placement on 10/27/24 - BUN/Cr 44/5.3 on am labs - Avoid nephrotoxic medications - Renally dose medications - Monitor I/O - Nephrology consulted, appreciate recommendations (5) CHF (congestive heart failure): Code(s): I50.9 - Heart failure, unspecified Status: Acute Assessment and Plan: - current medications: Lisinopril 2.5 mg daily, imdur 50 mg daily, carvedilol 25 mg daily - BNP: 3910 however not fully reliable given patients kidney function - ABG: pH 7.253, pCO2 34.4, pO2 65, HCO3 14.8, repeat ABG showing pH 7.243, pCo2 34.8, pO2 84, HCO3 14.7. Metabolic acidosis likely secondary to CKD. Started on Bicarb drip. - EKG: sinus rhthym with HR 61 - Chest XR:CXR: Lingular and right middle lobe pneumonia. - Echo ordered - Monitor vital signs, I&Os, BUN/creatinine, daily weights, neuro status and patient is a fall risk - Monitor serum electrolytes, Keep serum Potassium>4 and serum Magnesium>2 and CBC (6) Type 1 diabetes mellitus: Qualifiers: Diabetes mellitus complication status: without complication Qualified Code(s): E10.9 - Type 1 diabetes mellitus without complications Code(s): E10.9 - Type 1 diabetes mellitus without complications Status: Chronic Assessment and Plan: - hypoglycemia protocol - POC blood glucose ACHS - home medication - lispro on continuous glucose pump - correct regimen ordered - continuous glucose pump (7) Hypertension: Code(s): I10 - Essential (primary) hypertension Status: Chronic Assessment and Plan: Chronic, continue home medications - amlodipine 10 mg daily - lisinopril 2.5 mg daily - imdur 50 mg daily - carvedilol 25 mg daily - remains stable, continue to monitor (8) CAD (coronary artery disease): Code(s): I25.10 - Atherosclerotic heart disease of [place] coronary artery without angina pectoris Status: Acute Assessment and Plan: Continue Coreg, Plavix, isosorbide mononitrate, (9) Hypothyroidism: Code(s): E03.9 - Hypothyroidism, unspecified Status: Acute Assessment and Plan: Chronic, continue home medications - synthroid 50 mcg daily - TSH 3.390 Time Spent With Patient Time with patient: 25 - 35 minutes Subjective Date/time seen: 10/21/24 07:27 Interval history: 49-year-old male smoker with past medical history of type 1 diabetes, dyslipidemia, hypertension, coronary artery disease, neuropathy, CKD, hypothyroidism, melanoma and recurrent sebaceous cysts who presents to the hospital for shortness of breath. Patient is pleasant lying comfortably in bed. He states that he is feeling much better today and continues to have improvement to his breathing. He does still endorse a dry intermittent cough. He remains on 2 L nasal cannula. Will co ntinue to wean as tolerated. He has no other complaints denying chest pain, palpitations, nausea / vomiting, and abdominal pain. Review of Systems Review of Systems: All systems reviewed & are unremarkable except as noted in HPI and below Exam Narrative: AF HR 78 RR 20 SpO2 98 2L NC BP 157/70 General: male in no acute respiratory distress who is nontoxic appearing, lying semi recumbent in bed. HEENT: Normocephalic. Atraumatic. Extraocular movement intact. Sclera clear and anicteric. No facial asymmetry. Chest: Lungs are diminished to auscultation bilaterally. No wheezes or crackles. CV: Heart was regular rate and rhythm. S1/S2. No murmurs, gallops, or rubs. Abd: Abdomen was soft. Nontender. Nondistended. Positive bowel sounds. No organomegaly or masses. Objective Data Vital Signs Vital Signs: Vital Signs - 24 hr 10/20/24 07:43 10/20/24 07:43 10/20/24 07:59 Temperature Pulse Rate 77 78 Respiratory Rate 20 20 Blood Pressure Pulse Oximetry 95 Oxygen Delivery Nasal Cannula Oxygen Flow Rate 2 Fraction of Inspired Oxygen 10/20/24 08:00 10/20/24 08:00 10/20/24 08:00 Temperature 97.7 F Pulse Rate 74 76 Respiratory Rate 17 Blood Pressure 128/58 L Pulse Oximetry 96 95 Oxygen Delivery Nasal Cannula Oxygen Flow Rate 3 Fraction of Inspired Oxygen 10/20/24 08:39 10/20/24 08:49 10/20/24 12:00 Temperature 97.6 F Pulse Rate 81 82 72 Respiratory Rate 18 Blood Pressure 151/64 H 132/64 Pulse Oximetry 97 96 Oxygen Delivery Oxygen Flow Rate Fraction of Inspired Oxygen 10/20/24 12:00 10/20/24 13:48 10/20/24 13:48 Temperature Pulse Rate 80 84 Respiratory Rate 20 Blood Pressure Pulse Oximetry 93 Oxygen Delivery Nasal Cannula Oxygen Flow Rate 3 Fraction of Inspired Oxygen 10/20/24 13:58 10/20/24 14:00 10/20/24 16:00 Temperature 97.6 F Pulse Rate 81 75 87 Respiratory Rate 20 18 Blood Pressure 136/62 Pulse Oximetry 95 Oxygen Delivery Oxygen Flow Rate Fraction of Inspired Oxygen 10/20/24 19:36 10/20/24 20:00 10/20/24 20:00 Temperature 100.1 F H Pulse Rate 94 85 93 Respiratory Rate 17 17 Blood Pressure 160/70 H Pulse Oximetry 90 98 Oxygen Delivery Nasal Cannula Oxygen Flow Rate 3 Fraction of Inspired Oxygen 10/20/24 21:10 10/20/24 21:54 10/20/24 21:54 Temperature 98.8 F Pulse Rate 78 Respiratory Rate 20 Blood Pressure Pulse Oximetry 95 Oxygen Delivery Nasal Cannula Oxygen Flow Rate 3 Fraction of Inspired Oxygen 10/20/24 22:07 10/20/24 22:11 10/21/24 00:00 Temperature 98.8 F Pulse Rate 80 85 76 Respiratory Rate 20 17 Blood Pressure 145/56 H Pulse Oximetry 98 Oxygen Delivery Oxygen Flow Rate Fraction of Inspired Oxygen 10/21/24 02:05 10/21/24 02:35 10/21/24 02:45 Temperature 98.5 F Pulse Rate 79 76 81 Respiratory Rate 16 20 20 Blood Pressure 124/64 Pulse Oximetry 98 Oxygen Delivery Oxygen Flow Rate Fraction of Inspired Oxygen 10/21/24 04:00 10/21/24 05:46 Temperature 100.0 F H Pulse Rate 87 87 Respiratory Rate 17 Blood Pressure 155/65 H Pulse Oximetry 98 Oxygen Delivery Oxygen Flow Rate Fraction of Inspired Oxygen Intake/Output Intake/Output: Intake & Output 10/18/24 10/19/24 10/20/24 10/21/24 23:59 23:59 23:59 23:59 Intake Total 1000 1670 240 Output Total 1725 1000 Balance 6534 -18 -956 Meds/Results Medications: Active Medications Generic Name Dose Route Start Last Admin Trade Name Freq PRN Reason Stop Dose Admin Acetaminophen 650 mg 10/19/24 16:26 10/20/24 20:12 Acetaminophen 325 Mg Tablet PO 650 mg Q4H PRN Administration Mild Pain (1-3) or Fever Albuterol/Ipratropium 3 ml 10/20/24 02:00 10/21/24 02:35 Ipratropium 0.5 Mg/Albuterol Sulfate 2.5 Mg Ampul.Neb 3 Ml INHALATION 3 ml Q6HRT KALANI Administration Alprazolam 0.25 mg 10/19/24 20:24 Alprazolam (*Crx) 0.25 Mg Tablet PO TID PRN Anxiety Amlodipine Besylate 10 mg 10/20/24 09:00 10/20/24 08:39 Amlodipine Besylate 10 Mg Tablet PO 10 mg DAILY KALANI Administration Atorvastatin Calcium 40 mg 10/19/24 21:00 10/20/24 20:12 Atorvastatin 40 Mg Tablet PO 40 mg HS KALANI Administration Carvedilol 25 mg 10/19/24 21:00 10/20/24 20:12 Carvedilol 25 Mg Tablet PO 25 mg Q12HR KALANI Administration Clopidogrel Bisulfate 75 mg 10/20/24 09:00 10/20/24 08:39 Clopidogrel Bisulfate 75 Mg Tablet PO 75 mg DAILY KALANI Administration Dextrose 12.5 gm 10/19/24 16:26 Dextrose 50% 25 Gm/50 Ml Syringe IV PUSH PRN PRN Hypoglycemia Protocol Docusate Sodium 100 mg 10/20/24 09:00 10/20/24 08:40 Docusate Sodium 100 Mg Capsule PO Not Given DAILY KALANI Glucagon 1 mg 10/19/24 16:26 Glucagon For Inj 1 Mg Vial IM PRN PRN Hypoglycemia Protocol Glucose 15 gm 10/19/24 16:26 Glucose Oral Gel 15 Gm Of Glucse In 37.5 Gm Tube PO PRN PRN Hypoglycemia Protocol Dextrose 1,000 mls @ 100 mls/hr 10/19/24 16:26 Dextrose 5% 1,000 Ml IVPB PRN PRN Hypoglycemia Protocol Azithromycin 500 mg in 250 mls @ 250 mls/hr 10/20/24 09:00 10/20/24 10:08 Zithromax IVPB 250 mls/hr Q24H KALANI Administration Ceftriaxone Sodium 1 gm in 50 mls @ 100 mls/hr 10/20/24 09:00 10/20/24 08:41 Rocephin 1 Gm/Ns 50 Ml IVPB 100 mls/hr Q24H KALANI Administration Sodium Bicarbonate 75 meq/ 1,075 mls @ 50 mls/hr 10/21/24 08:00 Sodium Chloride IV CONT .[id number] KALANI Isosorbide Mononitrate 60 mg 10/20/24 09:00 10/20/24 08:40 Isosorbide Mononitrate 60 Mg Tab.Er.24h PO 60 mg DAILY KALANI Administration Levothyroxine Sodium 50 mcg 10/20/24 06:30 10/21/24 05:36 Levothyroxine Sodium 50 Mcg Tablet PO 50 mcg DAILY@0630 KALANI Administration Lisinopril 2.5 mg 10/20/24 09:00 10/20/24 08:40 Lisinopril 2.5 Mg Tablet PO 2.5 mg DAILY KALANI Administration Loratadine 10 mg 10/20/24 09:00 10/20/24 08:40 Loratadine 10 Mg Tablet PO 10 mg DAILY KALANI Administration Oseltamivir Phosphate 30 mg 10/20/24 09:00 10/20/24 08:40 Oseltamivir Phosphate 30 Mg Capsule PO 10/24/24 08:59 30 mg DAILY KALANI Administration Pantoprazole Sodium 40 mg 10/19/24 20:35 10/20/24 17:38 Pantoprazole 40 Mg Tablet PO 40 mg BID KALANI Administration Perflutren Lipid Microsphere 0 ml 10/19/24 16:40 Perflutren Lipid Microspheres 1.5 Ml Vial Diluted To 10 Ml Total Volume IV PUSH 10/22/24 16:41 ONCE PRN adequate visualization Protocol Pregabalin 75 mg 10/19/24 20:35 10/20/24 17:38 Pregabalin (*Crx) 75 Mg Capsule PO 75 mg BID KALANI Administration Sodium Bicarbonate 650 mg 10/21/24 09:00 Sodium Bicarbonate Tab 650 Mg Tablet PO BID [facility] Radiology Results: ITS Impressions Chest X-Ray 10/19/24 12:27 IMPRESSION: 1. Lingular and right middle lobe pneumonia. Labs Labs: Laboratory Results - last 24 hr 10/19/24 10/20/24 10/20/24 12:14 09:13 09:20 WBC RBC Hgb Hct MCV MCH MCHC RDW Plt Count MPV Immature Gran % (Auto) Neut % (Auto) Lymph % (Auto) [place] % (Auto) Eos % (Auto) Baso % (Auto) Lymph # (Auto) [place] # (Auto) Eos # (Auto) Baso # (Auto) Abs Immat Gran (auto) Absolute Neuts (auto) Absolute Nucleated RBC Total Counted Neutrophils % (Manual) Band Neutrophils % Lymphocytes % (Manual) Monocytes % (Manual) Eosinophils % (Manual) Nucleated RBC % Abs Neuts (Manual) Abs Lymphs (Manual) Abs Monocytes (Manual) Absolute Eos (Manual) Platelet Estimate % Immature Plt Fraction Schistocytes Puncture Site Left brachial ABG pH 7.243 L* ABG pCO2 34.8 L ABG pO2 84.6 ABG PO2/FiO2 Ratio 2.64 ABG HCO3 14.7 L ABG O2 Saturation 94.8 L ABG O2 Content 13.6 L ABG Base Excess -11.7 A-a Gradient 102.8 Oxyhemoglobin 95.6 Total Hemoglobin 10.0 L O2 Delivery Device Nasal cannula O2 Liters/Min 3.0 FiO2 32 Sodium Potassium Chloride Carbon Dioxide Anion Gap BUN Creatinine Estim Creat Clear Calc Estimated GFR Glucose POC Capillary Glucose 115 H Calcium Phosphorus Magnesium Total Bilirubin AST ALT Alkaline Phosphatase Total Creatine Kinase Total Protein Albumin Urine Color Urine Appearance Urine pH Ur Specific [place] Urine Protein Urine Glucose (UA) Urine Ketones Ur Blood (Man) Urine Nitrate Urine Bilirubin Urine Urobilinogen Leukocyte Esterase Rfl Urine RBC Urine WBC Ur Squamous Epith Cells Urine Bacteria Urine Casts Urine Eosinophils U Random Total Protein Ur Random Sodium Ur Random Urea Urine Creatinine Protein/Creat Ratio 2 Influenza A (RT-PCR) Positive A Influenza B (RT-PCR) Negative RSV (RT-PCR) Negative SARS-CoV-2 RNA (RT-PCR) Negative 10/20/24 10/20/24 10/20/24 12:09 14:07 14:07 WBC RBC Hgb Hct MCV MCH MCHC RDW Plt Count MPV Immature Gran % (Auto) Neut % (Auto) Lymph % (Auto) [place] % (Auto) Eos % (Auto) Baso % (Auto) Lymph # (Auto) [place] # (Auto) Eos # (Auto) Baso # (Auto) Abs Immat Gran (auto) Absolute Neuts (auto) Absolute Nucleated RBC Total Counted Neutrophils % (Manual) Band Neutrophils % Lymphocytes % (Manual) Monocytes % (Manual) Eosinophils % (Manual) Nucleated RBC % Abs Neuts (Manual) Abs Lymphs (Manual) Abs Monocytes (Manual) Absolute Eos (Manual) Platelet Estimate % Immature Plt Fraction Schistocytes Puncture Site ABG pH ABG pCO2 ABG pO2 ABG PO2/FiO2 Ratio ABG HCO3 ABG O2 Saturation ABG O2 Content ABG Base Excess A-a Gradient Oxyhemoglobin Total Hemoglobin O2 Delivery Device O2 Liters/Min FiO2 Sodium Potassium Chloride Carbon Dioxide Anion Gap BUN Creatinine Estim Creat Clear Calc Estimated GFR Glucose POC Capillary Glucose 159 H Calcium Phosphorus Magnesium Total Bilirubin AST ALT Alkaline Phosphatase Total Creatine Kinase Total Protein Albumin Urine Color Yellow Urine Appearance Clear Urine pH 5.0 Ur Specific [place] 1.012 Urine Protein 3+ H Urine Glucose (UA) Trace H Urine Ketones Negative Ur Blood (Man) 1+ H Urine Nitrate Negative Urine Bilirubin Negative Urine Urobilinogen 0.2 Leukocyte Esterase Rfl Negative Urine RBC 0-2 Urine WBC 0-5 Ur Squamous Epith Cells Occasional Urine Bacteria None seen Urine Casts 3-5 Urine Eosinophils None seen U Random Total Protein > 200 > 200 Ur Random Sodium 34 Ur Random Urea 365 Urine Creatinine 95.9 Protein/Creat Ratio 2 Influenza A (RT-PCR) Influenza B (RT-PCR) RSV (RT-PCR) SARS-CoV-2 RNA (RT-PCR) 10/20/24 10/20/24 10/20/24 14:07 16:59 20:19 WBC RBC Hgb Hct MCV MCH MCHC RDW Plt Count MPV Immature Gran % (Auto) Neut % (Auto) Lymph % (Auto) [place] % (Auto) Eos % (Auto) Baso % (Auto) Lymph # (Auto) [place] # (Auto) Eos # (Auto) Baso # (Auto) Abs Immat Gran (auto) Absolute Neuts (auto) Absolute Nucleated RBC Total Counted Neutrophils % (Manual) Band Neutrophils % Lymphocytes % (Manual) Monocytes % (Manual) Eosinophils % (Manual) Nucleated RBC % Abs Neuts (Manual) Abs Lymphs (Manual) Abs Monocytes (Manual) Absolute Eos (Manual) Platelet Estimate % Immature Plt Fraction Schistocytes Puncture Site ABG pH ABG pCO2 ABG pO2 ABG PO2/FiO2 Ratio ABG HCO3 ABG O2 Saturation ABG O2 Content ABG Base Excess A-a Gradient Oxyhemoglobin Total Hemoglobin O2 Delivery Device O2 Liters/Min FiO2 Sodium Potassium Chloride Carbon Dioxide Anion Gap BUN Creatinine Estim Creat Clear Calc Estimated GFR Glucose POC Capillary Glucose 150 H 193 H Calcium Phosphorus Magnesium Total Bilirubin AST ALT Alkaline Phosphatase Total Creatine Kinase Total Protein Albumin Urine Color Urine Appearance Urine pH Ur Specific [place] Urine Protein Urine Glucose (UA) Urine Ketones Ur Blood (Man) Urine Nitrate Urine Bilirubin Urine Urobilinogen Leukocyte Esterase Rfl Urine RBC Urine WBC Ur Squamous Epith Cells Urine Bacteria Urine Casts Urine Eosinophils U Random Total Protein Ur Random Sodium Ur Random Urea Urine Creatinine 96.2 Protein/Creat Ratio 2 > 2.08 H Influenza A (RT-PCR) Influenza B (RT-PCR) RSV (RT-PCR) SARS-CoV-2 RNA (RT-PCR) 10/21/24 06:01 WBC 5.2 RBC 3.24 L Hgb 9.4 L Hct 29.9 L MCV 92.3 MCH 29.0 MCHC 31.4 L RDW 14.5 Plt Count 98 L MPV 12.0 H Immature Gran % (Auto) Not Reportable Neut % (Auto) Not Reportable Lymph % (Auto) Not Reportable [place] % (Auto) Not Reportable Eos % (Auto) Not Reportable Baso % (Auto) Not Reportable Lymph # (Auto) Not Reportable [place] # (Auto) Not Reportable Eos # (Auto) Not Reportable Baso # (Auto) Not Reportable Abs Immat Gran (auto) Not Reportable Absolute Neuts (auto) Not Reportable Absolute Nucleated RBC Not Reportable Total Counted 100 Neutrophils % (Manual) 63 Band Neutrophils % 14 H Lymphocytes % (Manual) 19 Monocytes % (Manual) 3 Eosinophils % (Manual) 1 Nucleated RBC % Not Reportable Abs Neuts (Manual) 4.00 Abs Lymphs (Manual) 0.98 L Abs Monocytes (Manual) 0.15 Absolute Eos (Manual) 0.05 Platelet Estimate Decreased % Immature Plt Fraction 8.9 Schistocytes None seen Puncture Site ABG pH ABG pCO2 ABG pO2 ABG PO2/FiO2 Ratio ABG HCO3 ABG O2 Saturation ABG O2 Content ABG Base Excess A-a Gradient Oxyhemoglobin Total Hemoglobin O2 Delivery Device O2 Liters/Min FiO2 Sodium 138 Potassium 4.3 Chloride 113 H Carbon Dioxide 17 L Anion Gap 8 BUN 44 H Creatinine 5.20 H Estim Creat Clear Calc 17 Estimated GFR 12 L Glucose 140 H POC Capillary Glucose Calcium 8.6 Phosphorus 5.1 H Magnesium 1.7 Total Bilirubin 0.4 AST 21 ALT 15 Alkaline Phosphatase 86 Total Creatine Kinase 277 H Total Protein 7.0 Albumin 3.6 Urine Color Urine Appearance Urine pH Ur Specific [place] Urine Protein Urine Glucose (UA) Urine Ketones Ur Blood (Man) Urine Nitrate Urine Bilirubin Urine Urobilinogen Leukocyte Esterase Rfl Urine RBC Urine WBC Ur Squamous Epith Cells Urine Bacteria Urine Casts Urine Eosinophils U Random Total Protein Ur Random Sodium Ur Random Urea Urine Creatinine Protein/Creat Ratio 2 Influenza A (RT-PCR) Influenza B (RT-PCR) RSV (RT-PCR) SARS-CoV-2 RNA (RT-PCR) Quality VTE Prophylaxis VTE prophylaxis: mechanical ordered
[2024-10-21 07:59] LABS: Glucose Point of Care 158 mg/dl (65-105)
[2024-10-21] MEDS: PREGABALIN (*CRX) 75 MG CAPSULE PO ×2 (08:09→16:26)
[2024-10-21] MEDS: OSELTAMIVIR PHOSPHATE 30 MG CAPSULE PO (08:09)
[2024-10-21] MEDS: SODIUM BICARBONATE TAB 650 MG TABLET PO ×2 (08:09→16:26)
[2024-10-21] MEDS: carvediloL 25 MG TABLET PO ×2 (08:09→21:10)
[2024-10-21] MEDS: ISOSORBIDE MONONITRATE 60 MG TAB.ER.24H PO (08:09)
[2024-10-21] MEDS: CLOPIDOGREL BISULFATE 75 MG TABLET PO (08:09)
[2024-10-21] MEDS: DOCUSATE SODIUM 100 MG CAPSULE PO (08:09)
[2024-10-21] MEDS: LORATADINE 10 MG TABLET PO (08:10)
[2024-10-21] MEDS: AZITHROMYCIN 500 MG/NS 250 ML 500 MG/250 ML BAG 250 MG IVPB (08:10)
[2024-10-21] MEDS: PANTOPRAZOLE 40 MG TABLET PO ×2 (08:10→16:26)
[2024-10-21] MEDS: amLODIPine BESYLATE 10 MG TABLET PO (08:10)
--- NOTE | 2024-10-21 09:34 | P.PNNP_ITS ---
Subjective Date/time seen: 10/21/24 09:34 Interval history: Follow-up for acute kidney injury on chronic kidney disease (versus progression of chronic kidney disease). Exam 2 Narrative: General: WD/WN male in NAD Heart: normal S1 and S2; no rub Lungs: coarse and diminished Abdomen: soft, nontender, nondistended, positive bowel sounds Extremities: no cyanosis or clubbing; no edema Skin: warm and dry Objective Data Vital Signs Vital Signs: Vital Signs Temp Pulse Resp BP Pulse Ox O2 Del Method O2 Flow Rate 10/21/24 08:09 97 Nasal Cannula 3 10/21/24 08:09 80 10/21/24 08:05 97.4 F L 90 16 157/70 H 97 10/21/24 08:00 93 10/21/24 05:46 100.0 F H 87 17 155/65 H 98 10/21/24 04:00 87 10/21/24 02:45 81 20 10/21/24 02:35 76 20 10/21/24 02:05 98.5 F 79 16 124/64 98 10/21/24 00:00 76 10/20/24 22:11 98.8 F 85 17 145/56 H 98 10/20/24 22:07 80 20 10/20/24 21:54 78 20 10/20/24 21:54 95 Nasal Cannula 3 10/20/24 21:10 98.8 F 10/20/24 20:00 93 10/20/24 20:00 85 17 98 Nasal Cannula 3 10/20/24 19:36 100.1 F H 94 17 160/70 H 90 10/20/24 16:00 87 10/20/24 14:00 97.6 F 75 18 136/62 95 10/20/24 13:58 81 20 10/20/24 13:48 84 20 10/20/24 13:48 93 Nasal Cannula 3 Intake/Output Intake/Output: Intake & Output 10/18/24 10/19/24 10/20/24 10/21/24 23:59 23:59 23:59 23:59 Intake Total 1000 1970 480 Output Total 1725 1000 Balance 1000 245 -520 Meds/Results Medications: Active Medications Generic Name Dose Route Start Last Admin Trade Name Freq PRN Reason Stop Dose Admin Acetaminophen 650 mg 10/19/24 16:26 10/20/24 20:12 Acetaminophen 325 Mg Tablet PO 650 mg Q4H PRN Administration Mild Pain (1-3) or Fever Albuterol/Ipratropium 3 ml 10/20/24 02:00 10/21/24 02:35 Ipratropium 0.5 Mg/Albuterol Sulfate 2.5 Mg Ampul.Neb 3 Ml INHALATION 3 ml Q6HRT KALANI Administration Alprazolam 0.25 mg 10/19/24 20:24 Alprazolam (*Crx) 0.25 Mg Tablet PO TID PRN Anxiety Amlodipine Besylate 10 mg 10/20/24 09:00 10/21/24 08:10 Amlodipine Besylate 10 Mg Tablet PO 10 mg DAILY KALANI Administration Atorvastatin Calcium 40 mg 10/19/24 21:00 10/20/24 20:12 Atorvastatin 40 Mg Tablet PO 40 mg HS KALANI Administration Carvedilol 25 mg 10/19/24 21:00 10/21/24 08:09 Carvedilol 25 Mg Tablet PO 25 mg Q12HR KALANI Administration Clopidogrel Bisulfate 75 mg 10/20/24 09:00 10/21/24 08:09 Clopidogrel Bisulfate 75 Mg Tablet PO 75 mg DAILY KALANI Administration Dextrose 12.5 gm 10/19/24 16:26 Dextrose 50% 25 Gm/50 Ml Syringe IV PUSH PRN PRN Hypoglycemia Protocol Docusate Sodium 100 mg 10/20/24 09:00 10/21/24 08:09 Docusate Sodium 100 Mg Capsule PO 100 mg DAILY KALANI Administration Glucagon 1 mg 10/19/24 16:26 Glucagon For Inj 1 Mg Vial IM PRN PRN Hypoglycemia Protocol Glucose 15 gm 10/19/24 16:26 Glucose Oral Gel 15 Gm Of Glucse In 37.5 Gm Tube PO PRN PRN Hypoglycemia Protocol Dextrose 1,000 mls @ 100 mls/hr 10/19/24 16:26 Dextrose 5% 1,000 Ml IVPB PRN PRN Hypoglycemia Protocol Azithromycin 500 mg in 250 mls @ 250 mls/hr 10/20/24 09:00 10/21/24 08:10 Zithromax IVPB 250 mls/hr Q24H KALANI Administration Ceftriaxone Sodium 1 gm in 50 mls @ 100 mls/hr 10/20/24 09:00 10/21/24 08:14 Rocephin 1 Gm/Ns 50 Ml IVPB 100 mls/hr Q24H KALANI Administration Sodium Bicarbonate 75 meq/ 1,075 mls @ 50 mls/hr 10/21/24 08:00 10/21/24 11:29 Sodium Chloride IV CONT 50 mls/hr .[id number] KALANI Administration Isosorbide Mononitrate 60 mg 10/20/24 09:00 10/21/24 08:09 Isosorbide Mononitrate 60 Mg Tab.Er.24h PO 60 mg DAILY KALANI Administration Levothyroxine Sodium 50 mcg 10/20/24 06:30 10/21/24 05:36 Levothyroxine Sodium 50 Mcg Tablet PO 50 mcg DAILY@0630 KALANI Administration Lisinopril 2.5 mg 10/20/24 09:00 10/20/24 08:40 Lisinopril 2.5 Mg Tablet PO 2.5 mg DAILY KALANI Administration Loratadine 10 mg 10/20/24 09:00 10/21/24 08:10 Loratadine 10 Mg Tablet PO 10 mg DAILY KALANI Administration Oseltamivir Phosphate 30 mg 10/20/24 09:00 10/21/24 08:09 Oseltamivir Phosphate 30 Mg Capsule PO 10/24/24 08:59 30 mg DAILY KALANI Administration Pantoprazole Sodium 40 mg 10/19/24 20:35 10/21/24 08:10 Pantoprazole 40 Mg Tablet PO 40 mg BID KALANI Administration Perflutren Lipid Microsphere 0 ml 10/19/24 16:40 Perflutren Lipid Microspheres 1.5 Ml Vial Diluted To 10 Ml Total Volume IV PUSH 10/22/24 16:41 ONCE PRN adequate visualization Protocol Pregabalin 75 mg 10/19/24 20:35 10/21/24 08:09 Pregabalin (*Crx) 75 Mg Capsule PO 75 mg BID KALANI Administration Sodium Bicarbonate 650 mg 10/21/24 09:00 10/21/24 08:09 Sodium Bicarbonate Tab 650 Mg Tablet PO 650 mg BID KALANI Administration Radiology Results: ITS Impressions Chest X-Ray 10/19/24 12:27 IMPRESSION: 1. Lingular and right middle lobe pneumonia. Labs Labs: Laboratory Tests 10/21/24 06:01 10/21/24 06:01 10/19/24 10/20/24 10/20/24 12:14 14:07 14:07 WBC RBC Hgb Hct MCV MCH MCHC RDW Plt Count MPV Immature Gran % (Auto) Neut % (Auto) Lymph % (Auto) [place] % (Auto) Eos % (Auto) Baso % (Auto) Lymph # (Auto) [place] # (Auto) Eos # (Auto) Baso # (Auto) Abs Immat Gran (auto) Absolute Neuts (auto) Absolute Nucleated RBC Total Counted Neutrophils % (Manual) Band Neutrophils % Lymphocytes % (Manual) Monocytes % (Manual) Eosinophils % (Manual) Nucleated RBC % Abs Neuts (Manual) Abs Lymphs (Manual) Abs Monocytes (Manual) Absolute Eos (Manual) Platelet Estimate % Immature Plt Fraction Schistocytes Sodium Potassium Chloride Carbon Dioxide Anion Gap BUN Creatinine Estim Creat Clear Calc Estimated GFR Glucose POC Capillary Glucose Calcium Phosphorus Magnesium Total Bilirubin AST ALT Alkaline Phosphatase Total Creatine Kinase Total Protein Albumin Urine Color Yellow Pending Urine Appearance Clear Urine pH Ur Specific [place] Urine Protein Urine Glucose (UA) Urine Ketones Ur Blood (Man) Urine Nitrate Urine Bilirubin Urine Urobilinogen Leukocyte Esterase Rfl Urine RBC Urine WBC Ur Squamous Epith Cells Urine Bacteria Urine Casts Urine Eosinophils U Random Total Protein Ur Random Sodium Ur Random Urea Urine Creatinine Protein/Creat Ratio 2 Influenza A (RT-PCR) Positive A Influenza B (RT-PCR) Negative RSV (RT-PCR) Negative SARS-CoV-2 RNA (RT-PCR) Negative 10/20/24 10/20/24 10/20/24 14:07 14:07 14:07 WBC RBC Hgb Hct MCV MCH MCHC RDW Plt Count MPV Immature Gran % (Auto) Neut % (Auto) Lymph % (Auto) [place] % (Auto) Eos % (Auto) Baso % (Auto) Lymph # (Auto) [place] # (Auto) Eos # (Auto) Baso # (Auto) Abs Immat Gran (auto) Absolute Neuts (auto) Absolute Nucleated RBC Total Counted Neutrophils % (Manual) Band Neutrophils % Lymphocytes % (Manual) Monocytes % (Manual) Eosinophils % (Manual) Nucleated RBC % Abs Neuts (Manual) Abs Lymphs (Manual) Abs Monocytes (Manual) Absolute Eos (Manual) Platelet Estimate % Immature Plt Fraction Schistocytes Sodium Potassium Chloride Carbon Dioxide Anion Gap BUN Creatinine Estim Creat Clear Calc Estimated GFR Glucose POC Capillary Glucose Calcium Phosphorus Magnesium Total Bilirubin AST ALT Alkaline Phosphatase Total Creatine Kinase Total Protein Albumin Urine Color Urine Appearance Pending Urine pH 5.0 Pending Ur Specific [place] 1.012 Pending Urine Protein 3+ H Urine Glucose (UA) Urine Ketones Ur Blood (Man) Urine Nitrate Urine Bilirubin Urine Urobilinogen Leukocyte Esterase Rfl Urine RBC Urine WBC Ur Squamous Epith Cells Urine Bacteria Urine Casts Urine Eosinophils U Random Total Protein Ur Random Sodium Ur Random Urea Urine Creatinine Protein/Creat Ratio 2 Influenza A (RT-PCR) Influenza B (RT-PCR) RSV (RT-PCR) SARS-CoV-2 RNA (RT-PCR) 10/20/24 10/20/24 10/20/24 14:07 14:07 14:07 WBC RBC Hgb Hct MCV MCH MCHC RDW Plt Count MPV Immature Gran % (Auto) Neut % (Auto) Lymph % (Auto) [place] % (Auto) Eos % (Auto) Baso % (Auto) Lymph # (Auto) [place] # (Auto) Eos # (Auto) Baso # (Auto) Abs Immat Gran (auto) Absolute Neuts (auto) Absolute Nucleated RBC Total Counted Neutrophils % (Manual) Band Neutrophils % Lymphocytes % (Manual) Monocytes % (Manual) Eosinophils % (Manual) Nucleated RBC % Abs Neuts (Manual) Abs Lymphs (Manual) Abs Monocytes (Manual) Absolute Eos (Manual) Platelet Estimate % Immature Plt Fraction Schistocytes Sodium Potassium Chloride Carbon Dioxide Anion Gap BUN Creatinine Estim Creat Clear Calc Estimated GFR Glucose POC Capillary Glucose Calcium Phosphorus Magnesium Total Bilirubin AST ALT Alkaline Phosphatase Total Creatine Kinase Total Protein Albumin Urine Color Urine Appearance Urine pH Ur Specific [place] Urine Protein Pending Urine Glucose (UA) Trace H Pending Urine Ketones Negative Pending Ur Blood (Man) 1+ H Urine Nitrate Urine Bilirubin Urine Urobilinogen Leukocyte Esterase Rfl Urine RBC Urine WBC Ur Squamous Epith Cells Urine Bacteria Urine Casts Urine Eosinophils U Random Total Protein Ur Random Sodium Ur Random Urea Urine Creatinine Protein/Creat Ratio 2 Influenza A (RT-PCR) Influenza B (RT-PCR) RSV (RT-PCR) SARS-CoV-2 RNA (RT-PCR) 10/20/24 10/20/24 10/20/24 14:07 14:07 14:07 WBC RBC Hgb Hct MCV MCH MCHC RDW Plt Count MPV Immature Gran % (Auto) Neut % (Auto) Lymph % (Auto) [place] % (Auto) Eos % (Auto) Baso % (Auto) Lymph # (Auto) [place] # (Auto) Eos # (Auto) Baso # (Auto) Abs Immat Gran (auto) Absolute Neuts (auto) Absolute Nucleated RBC Total Counted Neutrophils % (Manual) Band Neutrophils % Lymphocytes % (Manual) Monocytes % (Manual) Eosinophils % (Manual) Nucleated RBC % Abs Neuts (Manual) Abs Lymphs (Manual) Abs Monocytes (Manual) Absolute Eos (Manual) Platelet Estimate % Immature Plt Fraction Schistocytes Sodium Potassium Chloride Carbon Dioxide Anion Gap BUN Creatinine Estim Creat Clear Calc Estimated GFR Glucose POC Capillary Glucose Calcium Phosphorus Magnesium Total Bilirubin AST ALT Alkaline Phosphatase Total Creatine Kinase Total Protein Albumin Urine Color Urine Appearance Urine pH Ur Specific [place] Urine Protein Urine Glucose (UA) Urine Ketones Ur Blood (Man) Pending Urine Nitrate Negative Pending Urine Bilirubin Negative Pending Urine Urobilinogen 0.2 Leukocyte Esterase Rfl Urine RBC Urine WBC Ur Squamous Epith Cells Urine Bacteria Urine Casts Urine Eosinophils U Random Total Protein Ur Random Sodium Ur Random Urea Urine Creatinine Protein/Creat Ratio 2 Influenza A (RT-PCR) Influenza B (RT-PCR) RSV (RT-PCR) SARS-CoV-2 RNA (RT-PCR) 10/20/24 10/20/24 10/20/24 14:07 14:07 14:07 WBC RBC Hgb Hct MCV MCH MCHC RDW Plt Count MPV Immature Gran % (Auto) Neut % (Auto) Lymph % (Auto) [place] % (Auto) Eos % (Auto) Baso % (Auto) Lymph # (Auto) [place] # (Auto) Eos # (Auto) Baso # (Auto) Abs Immat Gran (auto) Absolute Neuts (auto) Absolute Nucleated RBC Total Counted Neutrophils % (Manual) Band Neutrophils % Lymphocytes % (Manual) Monocytes % (Manual) Eosinophils % (Manual) Nucleated RBC % Abs Neuts (Manual) Abs Lymphs (Manual) Abs Monocytes (Manual) Absolute Eos (Manual) Platelet Estimate % Immature Plt Fraction Schistocytes Sodium Potassium Chloride Carbon Dioxide Anion Gap BUN Creatinine Estim Creat Clear Calc Estimated GFR Glucose POC Capillary Glucose Calcium Phosphorus Magnesium Total Bilirubin AST ALT Alkaline Phosphatase Total Creatine Kinase Total Protein Albumin Urine Color Urine Appearance Urine pH Ur Specific [place] Urine Protein Urine Glucose (UA) Urine Ketones Ur Blood (Man) Urine Nitrate Urine Bilirubin Urine Urobilinogen Pending Leukocyte Esterase Rfl Negative Pending Urine RBC 0-2 Urine WBC 0-5 Ur Squamous Epith Cells Occasional Urine Bacteria None seen Urine Casts 3-5 Urine Eosinophils None seen U Random Total Protein > 200 > 200 Ur Random Sodium 34 Ur Random Urea 365 Urine Creatinine 95.9 Protein/Creat Ratio 2 Influenza A (RT-PCR) Influenza B (RT-PCR) RSV (RT-PCR) SARS-CoV-2 RNA (RT-PCR) 10/20/24 10/20/24 10/20/24 14:07 16:59 20:19 WBC RBC Hgb Hct MCV MCH MCHC RDW Plt Count MPV Immature Gran % (Auto) Neut % (Auto) Lymph % (Auto) [place] % (Auto) Eos % (Auto) Baso % (Auto) Lymph # (Auto) [place] # (Auto) Eos # (Auto) Baso # (Auto) Abs Immat Gran (auto) Absolute Neuts (auto) Absolute Nucleated RBC Total Counted Neutrophils % (Manual) Band Neutrophils % Lymphocytes % (Manual) Monocytes % (Manual) Eosinophils % (Manual) Nucleated RBC % Abs Neuts (Manual) Abs Lymphs (Manual) Abs Monocytes (Manual) Absolute Eos (Manual) Platelet Estimate % Immature Plt Fraction Schistocytes Sodium Potassium Chloride Carbon Dioxide Anion Gap BUN Creatinine Estim Creat Clear Calc Estimated GFR Glucose POC Capillary Glucose 150 H 193 H Calcium Phosphorus Magnesium Total Bilirubin AST ALT Alkaline Phosphatase Total Creatine Kinase Total Protein Albumin Urine Color Urine Appearance Urine pH Ur Specific [place] Urine Protein Urine Glucose (UA) Urine Ketones Ur Blood (Man) Urine Nitrate Urine Bilirubin Urine Urobilinogen Leukocyte Esterase Rfl Urine RBC Urine WBC Ur Squamous Epith Cells Urine Bacteria Urine Casts Urine Eosinophils U Random Total Protein Ur Random Sodium Ur Random Urea Urine Creatinine 96.2 Protein/Creat Ratio 2 > 2.08 H Influenza A (RT-PCR) Influenza B (RT-PCR) RSV (RT-PCR) SARS-CoV-2 RNA (RT-PCR) 10/21/24 10/21/24 10/21/24 06:01 07:55 12:08 WBC 5.2 RBC 3.24 L Hgb 9.4 L Hct 29.9 L MCV 92.3 MCH 29.0 MCHC 31.4 L RDW 14.5 Plt Count 98 L MPV 12.0 H Immature Gran % (Auto) Not Reportable Neut % (Auto) Not Reportable Lymph % (Auto) Not Reportable [place] % (Auto) Not Reportable Eos % (Auto) Not Reportable Baso % (Auto) Not Reportable Lymph # (Auto) Not Reportable [place] # (Auto) Not Reportable Eos # (Auto) Not Reportable Baso # (Auto) Not Reportable Abs Immat Gran (auto) Not Reportable Absolute Neuts (auto) Not Reportable Absolute Nucleated RBC Not Reportable Total Counted 100 Neutrophils % (Manual) 63 Band Neutrophils % 14 H Lymphocytes % (Manual) 19 Monocytes % (Manual) 3 Eosinophils % (Manual) 1 Nucleated RBC % Not Reportable Abs Neuts (Manual) 4.00 Abs Lymphs (Manual) 0.98 L Abs Monocytes (Manual) 0.15 Absolute Eos (Manual) 0.05 Platelet Estimate Decreased % Immature Plt Fraction 8.9 Schistocytes None seen Sodium 138 Potassium 4.3 Chloride 113 H Carbon Dioxide 17 L Anion Gap 8 BUN 44 H Creatinine 5.20 H Estim Creat Clear Calc 17 Estimated GFR 12 L Glucose 140 H POC Capillary Glucose 158 H 198 H Calcium 8.6 Phosphorus 5.1 H Magnesium 1.7 Total Bilirubin 0.4 AST 21 ALT 15 Alkaline Phosphatase 86 Total Creatine Kinase 277 H Total Protein 7.0 Albumin 3.6 Urine Color Urine Appearance Urine pH Ur Specific [place] Urine Protein Urine Glucose (UA) Urine Ketones Ur Blood (Man) Urine Nitrate Urine Bilirubin Urine Urobilinogen Leukocyte Esterase Rfl Urine RBC Urine WBC Ur Squamous Epith Cells Urine Bacteria Urine Casts Urine Eosinophils U Random Total Protein Ur Random Sodium Ur Random Urea Urine Creatinine Protein/Creat Ratio 2 Influenza A (RT-PCR) Influenza B (RT-PCR) RSV (RT-PCR) SARS-CoV-2 RNA (RT-PCR) Microbiology 10/19/24 12:14 Blood Blood Culture - Preliminary 10/19/24 12:28 Blood Blood Culture - Preliminary
[2024-10-21] MEDS: SODIUM BICARBONATE 8.4% 75 MEQ in SODIUM CHLORIDE 0.45% 1,000 ML 50 MEQ IV CONT (11:29)
[2024-10-21 12:32] LABS: Glucose Point of Care 198 mg/dl (65-105)
[2024-10-21 16:04] LABS: Glucose Point of Care 242 mg/dl (65-105)
[2024-10-21 17:08] LABS: Glucose Point of Care 227 mg/dl (65-105)
[2024-10-21] MEDS: ATORVASTATIN 40 MG TABLET PO (21:10)
[2024-10-21] MEDS: ACETAMINOPHEN 325 MG TABLET 650 MG PO (21:10)
[2024-10-21 21:29] LABS: Glucose Point of Care 214 mg/dl (65-105)
[2024-10-22] VITALS (22 sets, daily range): BP systolic 131–158; BP diastolic 52–77; PULSE 73–84; RESP 12–20; TEMP 36.5–37.2; O2SAT 89–96
[2024-10-22] MEDS: IPRATROPIUM 0.5 MG/ALBUTEROL SULFATE 2.5 MG AMPUL.NEB 3 ML INHALATION ×4 (01:40→20:17)
[2024-10-22] MEDS: LEVOTHYROXINE SODIUM 50 MCG TABLET PO (05:19)
[2024-10-22] MEDS: SODIUM BICARBONATE 8.4% 75 MEQ in SODIUM CHLORIDE 0.45% 1,000 ML 50 MEQ IV CONT (05:19)
[2024-10-22 05:53] LABS: Basophils Absolute Auto 0.1 K/mm3 (0.0-0.1); Basophils Percent Auto 1.2 % (0.2-1.2); Eosinophils Absolute Auto 0.2 K/mm3 (0-0.3); Eosinophils Percent Auto 3.7 % (0-4.4); Hematocrit 29.1 % (42.0-52.0); Hemoglobin 9.3 g/dL (14.0-18.0); Immature Granulocyte Absolute 0.02 K/mm3 (0.00-0.031); Immature Granulocyte Percent A 0.5 % (0-0.5); Lymphocytes Absolute Auto 0.94 K/mm3 (0.9-3.2); Mean Corpuscular Hemoglobin 29.3 pg (26-34); Mean Corpuscular Volume 91.8 fl (80-100); Mean Platelet Volume 12.1 fl (7.4-10.4); Monocytes Absolute Auto 0.4 K/mm3 (0.1-0.6); Monocytes Percent Auto 9.8 % (2.6-8.5); Neutrophils Absolute Auto 2.7 K/mm3 (1.3-6.7); Neutrophils Percent Auto 62.8 % (45.5-73.1); Platelet Count Result 89 k/mm3 (150-375); Red Blood Count 3.17 M/mm3 (4.6-6.20); Red Cell Distribution Width 14.3 % (11.5-14.5); White Blood Count 4.3 K/mm3 (4.5-10.0)
[2024-10-22 06:03] LABS: Alanine Aminotransferase 13 U/L (6-50); Albumin Level 3.4 g/dL (3.5-5.1); Alkaline Phosphatase 81 U/L (38-126); Anion Gap 8 mmol/L (4-12); Aspartate Amino Transferase 20 U/L (17-59); Bilirubin,Total 0.4 mg/dL (0.2-1.3); Blood Urea Nitrogen 45 mg/dL (9-20); Calcium 8.3 mg/dL (8.4-10.2); Carbon Dioxide 19 mmol/L (22-30); Chloride 110 mmol/L (98-107); Estimated CRCL calculation 17 ml/min; Estimated Glomerular Filt Rate 12; Glucose 198 mg/dL (65-110); Magnesium 1.7 mg/dL (1.6-2.3); Phosphorus 5.2 mg/dL (2.5-4.5); Potassium 4.2 mmol/L (3.4-5.0); Sodium 137 mmol/L (137-145)
--- NOTE | 2024-10-22 06:32 | PC.NURSE ---
Pt found on 6L n/c. This RN asked the pt if he knew how did that happen. Pt's reply was obviously it was not me . This RN educated pt about the dangers of changing oxygen settings and asked that the pt calls the nurse if he feels short of breath. Pt verbalized understanding.
[2024-10-22 08:12] LABS: Glucose Point of Care 203 mg/dl (65-105)
[2024-10-22] MEDS: amLODIPine BESYLATE 10 MG TABLET PO (08:23)
[2024-10-22] MEDS: carvediloL 25 MG TABLET PO ×2 (08:23→20:08)
[2024-10-22] MEDS: CLOPIDOGREL BISULFATE 75 MG TABLET PO (08:23)
[2024-10-22] MEDS: OSELTAMIVIR PHOSPHATE 30 MG CAPSULE PO (08:24)
[2024-10-22] MEDS: LORATADINE 10 MG TABLET PO (08:24)
[2024-10-22] MEDS: ISOSORBIDE MONONITRATE 60 MG TAB.ER.24H PO (08:24)
[2024-10-22] MEDS: PREGABALIN (*CRX) 75 MG CAPSULE PO ×2 (08:24→16:29)
[2024-10-22] MEDS: SODIUM BICARBONATE TAB 650 MG TABLET PO ×2 (08:24→16:29)
[2024-10-22] MEDS: PANTOPRAZOLE 40 MG TABLET PO ×2 (08:24→16:29)
[2024-10-22] MEDS: AZITHROMYCIN 500 MG/NS 250 ML 500 MG/250 ML BAG 250 MG IVPB (08:53)
--- NOTE | 2024-10-22 10:25 | PM.PNNEP ---
Subjective Date/time seen: 10/22/24 10:25 Objective Data Vital Signs Vital Signs: Vital Signs Temp Pulse Resp BP Pulse Ox O2 Del Method O2 Flow Rate 10/22/24 10:12 98.6 F 82 12 131/63 90 10/22/24 08:23 80 10/22/24 08:00 92 Nasal Cannula 2 10/22/24 08:00 81 10/22/24 07:24 84 20 10/22/24 07:11 80 20 10/22/24 07:11 92 Nasal Cannula 2 10/22/24 06:07 97.7 F 78 16 153/66 H 96 10/22/24 04:00 84 10/22/24 01:55 79 20 10/22/24 01:41 82 20 10/22/24 00:23 98.3 F 74 16 131/52 L 94 10/22/24 00:00 73 10/21/24 21:15 98.0 F 84 16 160/63 H 93 10/21/24 20:00 85 10/21/24 20:00 84 16 93 Nasal Cannula 3 Intake/Output Intake/Output: Intake & Output 10/19/24 10/20/24 10/21/24 10/22/24 23:59 23:59 23:59 23:59 Intake Total 1000 1970 1260 1501.7 Output Total 1725 1800 1700 Balance 1000 245 -540 -198.3 Meds/Results Medications: Active Medications Generic Name Dose Route Start Last Admin Trade Name Freq PRN Reason Stop Dose Admin Acetaminophen 650 mg 10/19/24 16:26 10/21/24 21:10 Acetaminophen 325 Mg Tablet PO 650 mg Q4H PRN Administration Mild Pain (1-3) or Fever Albuterol/Ipratropium 3 ml 10/20/24 02:00 10/22/24 13:46 Ipratropium 0.5 Mg/Albuterol Sulfate 2.5 Mg Ampul.Neb 3 Ml INHALATION 3 ml Q6HRT KALANI Administration Alprazolam 0.25 mg 10/19/24 20:24 Alprazolam (*Crx) 0.25 Mg Tablet PO TID PRN Anxiety Amlodipine Besylate 10 mg 10/20/24 09:00 10/22/24 08:23 Amlodipine Besylate 10 Mg Tablet PO 10 mg DAILY KALANI Administration Atorvastatin Calcium 40 mg 10/19/24 21:00 10/21/24 21:10 Atorvastatin 40 Mg Tablet PO 40 mg HS KALANI Administration Carvedilol 25 mg 10/19/24 21:00 10/22/24 08:23 Carvedilol 25 Mg Tablet PO 25 mg Q12HR KALANI Administration Clopidogrel Bisulfate 75 mg 10/20/24 09:00 10/22/24 08:23 Clopidogrel Bisulfate 75 Mg Tablet PO 75 mg DAILY KALANI Administration Dextrose 12.5 gm 10/19/24 16:26 Dextrose 50% 25 Gm/50 Ml Syringe IV PUSH PRN PRN Hypoglycemia Protocol Docusate Sodium 100 mg 10/20/24 09:00 10/22/24 08:23 Docusate Sodium 100 Mg Capsule PO Not Given DAILY KALANI Glucagon 1 mg 10/19/24 16:26 Glucagon For Inj 1 Mg Vial IM PRN PRN Hypoglycemia Protocol Glucose 15 gm 10/19/24 16:26 Glucose Oral Gel 15 Gm Of Glucse In 37.5 Gm Tube PO PRN PRN Hypoglycemia Protocol Home Med 1 each 10/22/24 06:00 Home Medication XX 11/21/24 05:59 DAILY@0600 KALANI Dextrose 1,000 mls @ 100 mls/hr 10/19/24 16:26 Dextrose 5% 1,000 Ml IVPB PRN PRN Hypoglycemia Protocol Azithromycin 500 mg in 250 mls @ 250 mls/hr 10/20/24 09:00 10/22/24 08:53 Zithromax IVPB 250 mls/hr Q24H KALANI Administration Ceftriaxone Sodium 1 gm in 50 mls @ 100 mls/hr 10/20/24 09:00 10/22/24 08:25 Rocephin 1 Gm/Ns 50 Ml IVPB 100 mls/hr Q24H KALANI Administration Sodium Bicarbonate 75 meq/ 1,075 mls @ 50 mls/hr 10/21/24 08:00 10/22/24 05:19 Sodium Chloride IV CONT 50 mls/hr .[id number] KALANI Administration Isosorbide Mononitrate 60 mg 10/20/24 09:00 10/22/24 08:24 Isosorbide Mononitrate 60 Mg Tab.Er.24h PO 60 mg DAILY KALANI Administration Levothyroxine Sodium 50 mcg 10/20/24 06:30 10/22/24 05:19 Levothyroxine Sodium 50 Mcg Tablet PO 50 mcg DAILY@0630 KALANI Administration Lisinopril 2.5 mg 10/20/24 09:00 10/20/24 08:40 Lisinopril 2.5 Mg Tablet PO 2.5 mg DAILY KALANI Administration Loratadine 10 mg 10/20/24 09:00 10/22/24 08:24 Loratadine 10 Mg Tablet PO 10 mg DAILY KALANI Administration Oseltamivir Phosphate 30 mg 10/20/24 09:00 10/22/24 08:24 Oseltamivir Phosphate 30 Mg Capsule PO 10/24/24 08:59 30 mg DAILY KALANI Administration Pantoprazole Sodium 40 mg 10/19/24 20:35 10/22/24 16:29 Pantoprazole 40 Mg Tablet PO 40 mg BID KALANI Administration Pregabalin 75 mg 10/19/24 20:35 10/22/24 16:29 Pregabalin (*Crx) 75 Mg Capsule PO 75 mg BID KALANI Administration Sodium Bicarbonate 650 mg 10/21/24 09:00 10/22/24 16:29 Sodium Bicarbonate Tab 650 Mg Tablet PO 650 mg BID KALANI Administration Radiology Results: ITS Impressions Chest X-Ray 10/19/24 12:27 IMPRESSION: 1. Lingular and right middle lobe pneumonia. Labs Labs: Laboratory Tests 10/22/24 05:39 10/22/24 05:39 10/21/24 10/22/24 10/22/24 21:06 05:39 08:04 WBC 4.3 L RBC 3.17 L Hgb 9.3 L Hct 29.1 L MCV 91.8 MCH 29.3 MCHC 32.0 RDW 14.3 Plt Count 89 L MPV 12.1 H Immature Gran % (Auto) 0.5 Neut % (Auto) 62.8 Lymph % (Auto) 22.0 [place] % (Auto) 9.8 H Eos % (Auto) 3.7 Baso % (Auto) 1.2 Lymph # (Auto) 0.94 [place] # (Auto) 0.4 Eos # (Auto) 0.2 Baso # (Auto) 0.1 Abs Immat Gran (auto) 0.02 Absolute Neuts (auto) 2.7 Absolute Nucleated RBC 0.000 Nucleated RBC % 0.0 % Immature Plt Fraction 8.0 Sodium 137 Potassium 4.2 Chloride 110 H Carbon Dioxide 19 L Anion Gap 8 BUN 45 H Creatinine 5.10 H Estim Creat Clear Calc 17 Estimated GFR 12 L Glucose 198 H POC Capillary Glucose 214 H 203 H Calcium 8.3 L Phosphorus 5.2 H Magnesium 1.7 Total Bilirubin 0.4 AST 20 ALT 13 Alkaline Phosphatase 81 Total Protein 7.0 Albumin 3.4 L 10/22/24 10/22/24 12:03 16:43 WBC RBC Hgb Hct MCV MCH MCHC RDW Plt Count MPV Immature Gran % (Auto) Neut % (Auto) Lymph % (Auto) [place] % (Auto) Eos % (Auto) Baso % (Auto) Lymph # (Auto) [place] # (Auto) Eos # (Auto) Baso # (Auto) Abs Immat Gran (auto) Absolute Neuts (auto) Absolute Nucleated RBC Nucleated RBC % % Immature Plt Fraction Sodium Potassium Chloride Carbon Dioxide Anion Gap BUN Creatinine Estim Creat Clear Calc Estimated GFR Glucose POC Capillary Glucose 205 H 258 H Calcium Phosphorus Magnesium Total Bilirubin AST ALT Alkaline Phosphatase Total Protein Albumin
--- NOTE | 2024-10-22 11:07 | PM.IMPN ---
Progress Note: A&P Assessment and Plan (1) Metabolic acidosis: Code(s): E87.20 - Acidosis, unspecified Status: Acute Assessment and Plan: ABG: pH 7.253, pCO2 34.4, pO2 65, HCO3 14.8, repeat ABG showing pH 7.243, pCo2 34.8, pO2 84, HCO3 14.7. Metabolic acidosis likely secondary to CKD. Started on 150 MEQ Bicarb IV on 10/20, on 10/21 chemistry bicarb remains low at 17. Bicarb changed to 75 MEQ IV and PO bicarb 650 mg BID. 10/22/24 bicarb 19. Continue to monitor Co2 on am chemistry. (2) Hypoxic respiratory failure: Code(s): J96.91 - Respiratory failure, unspecified with hypoxia Status: Acute Assessment and Plan: - SpO2 87% in the ED on room air, started on oxygen supplementation. Remains on 2L NC at this time. Continue to wean for spo2 > 90% - Suspected cause: Flu A and pneumonia - ABG: pH 7.253, pCO2 34.4, pO2 65, HCO3 14.8, repeat ABG showing pH 7.243, pCo2 34.8, pO2 84, HCO3 14.7. Metabolic acidosis likely secondary to CKD. Started on Bicarb drip. - EKG: sinus rhthym with HR 61 - D dimer: o.47 (WNL) - BNP elevated at 3910, possible CHF however BNP unreliable given patients kidney function - Echo ordered - Chest XR:CXR: Lingular and right middle lobe pneumonia. (3) Pneumonia: Code(s): J18.9 - Pneumonia, unspecified organism Status: Acute Assessment and Plan: CXR: Lingular and right middle lobe pneumonia. - started on CAP tx: azithromycin ceftriaxone on 10/20 - Viral PCR: positive for FLU A, started on tamiflu (course complete on 10/24) - Blood cultures obtained on 10/19: NGTD - Consider ordering legionella, mycoplasma and pneumococcal - Oxygen supplementation: 2L NC, baseline room air. Wean oxygen for spo2 > 90% - Monitor vital signs, I&Os, neuro status and patient is a fall risk - Follow WBC, serum electrolytes, temperature curves and cultures (4) Chronic kidney disease, stage IV (severe): Code(s): N18.4 - Chronic kidney disease, stage 4 (severe) Status: Acute Assessment and Plan: Acute on chronic baseline around 3.0-4.0, creatinine on admission 4.7. Last seen by nephrology, Dr. Rajput on 09/24. Has appointment with General Surgery for evaluation of PD catheter placement on 10/27/24 - BUN/Cr 45/5.1 on am labs - Avoid nephrotoxic medications - Renally dose medications - Monitor I/O - Nephrology consulted, appreciate recommendations (5) CHF (congestive heart failure): Code(s): I50.9 - Heart failure, unspecified Status: Acute Assessment and Plan: - current medications: Lisinopril 2.5 mg daily, imdur 50 mg daily, carvedilol 25 mg daily - BNP: 3910 however not fully reliable given patients kidney function - ABG: pH 7.253, pCO2 34.4, pO2 65, HCO3 14.8, repeat ABG showing pH 7.243, pCo2 34.8, pO2 84, HCO3 14.7. Metabolic acidosis likely secondary to CKD. Started on Bicarb drip. - EKG: sinus rhthym with HR 61 - Chest XR:CXR: Lingular and right middle lobe pneumonia. - Echo ordered - Monitor vital signs, I&Os, BUN/creatinine, daily weights, neuro status and patient is a fall risk - Monitor serum electrolytes, Keep serum Potassium>4 and serum Magnesium>2 and CBC (6) Type 1 diabetes mellitus: Qualifiers: Diabetes mellitus complication status: without complication Qualified Code(s): E10.9 - Type 1 diabetes mellitus without complications Code(s): E10.9 - Type 1 diabetes mellitus without complications Status: Chronic Assessment and Plan: - hypoglycemia protocol - POC blood glucose ACHS - home medication - lispro on continuous glucose pump - correct regimen ordered - continuous glucose pump (7) Hypertension: Code(s): I10 - Essential (primary) hypertension Status: Chronic Assessment and Plan: Chronic, continue home medications - amlodipine 10 mg daily - lisinopril 2.5 mg daily - imdur 50 mg daily - carvedilol 25 mg daily - remains stable, continue to monitor (8) CAD (coronary artery disease): Code(s): I25.10 - Atherosclerotic heart disease of [place] coronary artery without angina pectoris Status: Acute Assessment and Plan: Continue Coreg, Plavix, isosorbide mononitrate, (9) Hypothyroidism: Code(s): E03.9 - Hypothyroidism, unspecified Status: Acute Assessment and Plan: Chronic, continue home medications - synthroid 50 mcg daily - TSH 3.390 Subjective Date/time seen: 10/22/24 11:07 Interval history: Patient sitting up in bed. Patient reports that breathing has improved. Patient coughing up white sputum. Patient denies chest pain, palpitations, headache, dizziness, nausea, or vomiting. Review of Systems Review of Systems: All systems reviewed & are unremarkable except as noted in HPI and below Exam Const: General: comfortable and no acute distress Resp: Effort & Inspection: normal respiratory effort Auscultation: diminished lung sounds Cardio: Rate: regular rate Rhythm: regular rhythm Other: Telemetry- SR 79 GI: GI Palp: Yes Soft to palpation Auscultation: normal bowel sounds Skin: General skin exam: no rashes or lesions noted Neuro: Speech: normal speech Psych: Mental Status: mental status grossly normal Affect: normal affect Objective Data Vital Signs Vital Signs: Vital Signs - 24 hr 10/21/24 11:30 10/21/24 12:00 10/21/24 14:06 Temperature Pulse Rate 78 81 Respiratory Rate 20 Blood Pressure Pulse Oximetry 98 92 Oxygen Delivery Nasal Cannula Nasal Cannula Oxygen Flow Rate 2 2 Fraction of Inspired Oxygen 10/21/24 14:06 10/21/24 14:12 10/21/24 14:16 Temperature 97.5 F L Pulse Rate 81 81 79 Respiratory Rate 20 16 20 Blood Pressure 132/58 L Pulse Oximetry 95 Oxygen Delivery Oxygen Flow Rate Fraction of Inspired Oxygen 10/21/24 16:00 10/21/24 20:00 10/21/24 20:00 Temperature Pulse Rate 88 84 85 Respiratory Rate 16 Blood Pressure Pulse Oximetry 93 Oxygen Delivery Nasal Cannula Oxygen Flow Rate 3 Fraction of Inspired Oxygen 10/21/24 21:15 10/22/24 00:00 10/22/24 00:23 Temperature 98.0 F 98.3 F Pulse Rate 84 73 74 Respiratory Rate 16 16 Blood Pressure 160/63 H 131/52 L Pulse Oximetry 93 94 Oxygen Delivery Oxygen Flow Rate Fraction of Inspired Oxygen 10/22/24 01:41 10/22/24 01:55 10/22/24 04:00 Temperature Pulse Rate 82 79 84 Respiratory Rate 20 20 Blood Pressure Pulse Oximetry Oxygen Delivery Oxygen Flow Rate Fraction of Inspired Oxygen 10/22/24 06:07 10/22/24 07:11 10/22/24 07:11 Temperature 97.7 F Pulse Rate 78 80 Respiratory Rate 16 20 Blood Pressure 153/66 H Pulse Oximetry 96 92 Oxygen Delivery Nasal Cannula Oxygen Flow Rate 2 Fraction of Inspired Oxygen 10/22/24 07:24 10/22/24 08:00 10/22/24 08:00 Temperature Pulse Rate 84 81 Respiratory Rate 20 Blood Pressure Pulse Oximetry 92 Oxygen Delivery Nasal Cannula Oxygen Flow Rate 2 Fraction of Inspired Oxygen 10/22/24 08:23 10/22/24 10:12 Temperature 98.6 F Pulse Rate 80 82 Respiratory Rate 12 Blood Pressure 131/63 Pulse Oximetry 90 Oxygen Delivery Oxygen Flow Rate Fraction of Inspired Oxygen Intake/Output Intake/Output: Intake & Output 10/19/24 10/20/24 10/21/24 10/22/24 23:59 23:59 23:59 23:59 Intake Total 1000 1970 1260 1141.7 Output Total 1725 1800 1100 Balance 1000 245 -540 41.7 Meds/Results Medications: Active Medications Generic Name Dose Route Start Last Admin Trade Name Freq PRN Reason Stop Dose Admin Acetaminophen 650 mg 10/19/24 16:26 10/21/24 21:10 Acetaminophen 325 Mg Tablet PO 650 mg Q4H PRN Administration Mild Pain (1-3) or Fever Albuterol/Ipratropium 3 ml 10/20/24 02:00 10/22/24 07:11 Ipratropium 0.5 Mg/Albuterol Sulfate 2.5 Mg Ampul.Neb 3 Ml INHALATION 3 ml Q6HRT KALANI Administration Alprazolam 0.25 mg 10/19/24 20:24 Alprazolam (*Crx) 0.25 Mg Tablet PO TID PRN Anxiety Amlodipine Besylate 10 mg 10/20/24 09:00 10/22/24 08:23 Amlodipine Besylate 10 Mg Tablet PO 10 mg DAILY KALANI Administration Atorvastatin Calcium 40 mg 10/19/24 21:00 10/21/24 21:10 Atorvastatin 40 Mg Tablet PO 40 mg HS KALANI Administration Carvedilol 25 mg 10/19/24 21:00 10/22/24 08:23 Carvedilol 25 Mg Tablet PO 25 mg Q12HR KALANI Administration Clopidogrel Bisulfate 75 mg 10/20/24 09:00 10/22/24 08:23 Clopidogrel Bisulfate 75 Mg Tablet PO 75 mg DAILY KALANI Administration Dextrose 12.5 gm 10/19/24 16:26 Dextrose 50% 25 Gm/50 Ml Syringe IV PUSH PRN PRN Hypoglycemia Protocol Docusate Sodium 100 mg 10/20/24 09:00 10/22/24 08:23 Docusate Sodium 100 Mg Capsule PO Not Given DAILY KALANI Glucagon 1 mg 10/19/24 16:26 Glucagon For Inj 1 Mg Vial IM PRN PRN Hypoglycemia Protocol Glucose 15 gm 10/19/24 16:26 Glucose Oral Gel 15 Gm Of Glucse In 37.5 Gm Tube PO PRN PRN Hypoglycemia Protocol Home Med 1 each 10/22/24 06:00 Home Medication XX 11/21/24 05:59 DAILY@0600 KALANI Dextrose 1,000 mls @ 100 mls/hr 10/19/24 16:26 Dextrose 5% 1,000 Ml IVPB PRN PRN Hypoglycemia Protocol Azithromycin 500 mg in 250 mls @ 250 mls/hr 10/20/24 09:00 10/22/24 08:53 Zithromax IVPB 250 mls/hr Q24H KALANI Administration Ceftriaxone Sodium 1 gm in 50 mls @ 100 mls/hr 10/20/24 09:00 10/22/24 08:25 Rocephin 1 Gm/Ns 50 Ml IVPB 100 mls/hr Q24H KALANI Administration Sodium Bicarbonate 75 meq/ 1,075 mls @ 50 mls/hr 10/21/24 08:00 10/22/24 05:19 Sodium Chloride IV CONT 50 mls/hr .[id number] KALANI Administration Isosorbide Mononitrate 60 mg 10/20/24 09:00 10/22/24 08:24 Isosorbide Mononitrate 60 Mg Tab.Er.24h PO 60 mg DAILY KALANI Administration Levothyroxine Sodium 50 mcg 10/20/24 06:30 10/22/24 05:19 Levothyroxine Sodium 50 Mcg Tablet PO 50 mcg DAILY@0630 KALANI Administration Lisinopril 2.5 mg 10/20/24 09:00 10/20/24 08:40 Lisinopril 2.5 Mg Tablet PO 2.5 mg DAILY KALANI Administration Loratadine 10 mg 10/20/24 09:00 10/22/24 08:24 Loratadine 10 Mg Tablet PO 10 mg DAILY KALANI Administration Oseltamivir Phosphate 30 mg 10/20/24 09:00 10/22/24 08:24 Oseltamivir Phosphate 30 Mg Capsule PO 10/24/24 08:59 30 mg DAILY KALANI Administration Pantoprazole Sodium 40 mg 10/19/24 20:35 10/22/24 08:24 Pantoprazole 40 Mg Tablet PO 40 mg BID KALANI Administration Perflutren Lipid Microsphere 0 ml 10/19/24 16:40 Perflutren Lipid Microspheres 1.5 Ml Vial Diluted To 10 Ml Total Volume IV PUSH 10/22/24 16:41 ONCE PRN adequate visualization Protocol Pregabalin 75 mg 10/19/24 20:35 10/22/24 08:24 Pregabalin (*Crx) 75 Mg Capsule PO 75 mg BID KALANI Administration Sodium Bicarbonate 650 mg 10/21/24 09:00 10/22/24 08:24 Sodium Bicarbonate Tab 650 Mg Tablet PO 650 mg BID KALANI Administration Radiology Results: ITS Impressions Chest X-Ray 10/19/24 12:27 IMPRESSION: 1. Lingular and right middle lobe pneumonia. Labs Labs: Laboratory Results - last 24 hr 10/21/24 10/21/24 10/21/24 12:08 16:00 17:00 WBC RBC Hgb Hct MCV MCH MCHC RDW Plt Count MPV Immature Gran % (Auto) Neut % (Auto) Lymph % (Auto) [place] % (Auto) Eos % (Auto) Baso % (Auto) Lymph # (Auto) [place] # (Auto) Eos # (Auto) Baso # (Auto) Abs Immat Gran (auto) Absolute Neuts (auto) Absolute Nucleated RBC Nucleated RBC % % Immature Plt Fraction Sodium Potassium Chloride Carbon Dioxide Anion Gap BUN Creatinine Estim Creat Clear Calc Estimated GFR Glucose POC Capillary Glucose 198 H 242 H 227 H Calcium Phosphorus Magnesium Total Bilirubin AST ALT Alkaline Phosphatase Total Protein Albumin 10/21/24 10/22/24 10/22/24 21:06 05:39 08:04 WBC 4.3 L RBC 3.17 L Hgb 9.3 L Hct 29.1 L MCV 91.8 MCH 29.3 MCHC 32.0 RDW 14.3 Plt Count 89 L MPV 12.1 H Immature Gran % (Auto) 0.5 Neut % (Auto) 62.8 Lymph % (Auto) 22.0 [place] % (Auto) 9.8 H Eos % (Auto) 3.7 Baso % (Auto) 1.2 Lymph # (Auto) 0.94 [place] # (Auto) 0.4 Eos # (Auto) 0.2 Baso # (Auto) 0.1 Abs Immat Gran (auto) 0.02 Absolute Neuts (auto) 2.7 Absolute Nucleated RBC 0.000 Nucleated RBC % 0.0 % Immature Plt Fraction 8.0 Sodium 137 Potassium 4.2 Chloride 110 H Carbon Dioxide 19 L Anion Gap 8 BUN 45 H Creatinine 5.10 H Estim Creat Clear Calc 17 Estimated GFR 12 L Glucose 198 H POC Capillary Glucose 214 H 203 H Calcium 8.3 L Phosphorus 5.2 H Magnesium 1.7 Total Bilirubin 0.4 AST 20 ALT 13 Alkaline Phosphatase 81 Total Protein 7.0 Albumin 3.4 L Quality VTE Prophylaxis VTE prophylaxis: mechanical ordered
[2024-10-22 12:15] LABS: Glucose Point of Care 205 mg/dl (65-105)
[2024-10-22 16:53] LABS: Glucose Point of Care 258 mg/dl (65-105)
[2024-10-22] MEDS: ATORVASTATIN 40 MG TABLET PO (20:08)
[2024-10-22] MEDS: ACETAMINOPHEN 325 MG TABLET 650 MG PO (20:09)
[2024-10-22 20:34] LABS: Glucose Point of Care 241 mg/dl (65-105)
[2024-10-23] VITALS (16 sets, daily range): BP systolic 134–155; BP diastolic 55–68; PULSE 69–83; RESP 16–20; TEMP 36.4–37.1; O2SAT 88–95
[2024-10-23] MEDS: LEVOTHYROXINE SODIUM 50 MCG TABLET PO (05:54)
[2024-10-23 06:06] LABS: Alanine Aminotransferase 12 U/L (6-50); Albumin Level 3.5 g/dL (3.5-5.1); Alkaline Phosphatase 83 U/L (38-126); Anion Gap 8 mmol/L (4-12); Aspartate Amino Transferase 19 U/L (17-59); Bilirubin,Total 0.4 mg/dL (0.2-1.3); Blood Urea Nitrogen 44 mg/dL (9-20); Calcium 8.5 mg/dL (8.4-10.2); Carbon Dioxide 21 mmol/L (22-30); Chloride 110 mmol/L (98-107); Estimated CRCL calculation 18 ml/min; Estimated Glomerular Filt Rate 13; Glucose 240 mg/dL (65-110); Magnesium 1.8 mg/dL (1.6-2.3); Phosphorus 4.8 mg/dL (2.5-4.5); Potassium 3.8 mmol/L (3.4-5.0); Sodium 139 mmol/L (137-145)
[2024-10-23 07:45] LABS: Basophils Percent Auto 0.9 % (0.2-1.2); Eosinophils Absolute Auto 0.2 K/mm3 (0-0.3); Eosinophils Percent Auto 5.2 % (0-4.4); Hematocrit 30.7 % (42.0-52.0); Hemoglobin 9.8 g/dL (14.0-18.0); Immature Granulocyte Absolute 0.01 K/mm3 (0.00-0.031); Immature Granulocyte Percent A 0.2 % (0-0.5); Lymphocytes Absolute Auto 1.13 K/mm3 (0.9-3.2); Lymphocytes Percent Auto 26.5 % (18.3-44.2); Mean Corpuscular HGB Conc 31.9 g/dl (32-36); Mean Corpuscular Hemoglobin 29.3 pg (26-34); Mean Corpuscular Volume 91.6 fl (80-100); Mean Platelet Volume 12.5 fl (7.4-10.4); Monocytes Absolute Auto 0.3 K/mm3 (0.1-0.6); Neutrophils Absolute Auto 2.6 K/mm3 (1.3-6.7); Neutrophils Percent Auto 60.2 % (45.5-73.1); Platelet Count Result 90 k/mm3 (150-375); Red Blood Count 3.35 M/mm3 (4.6-6.20); Red Cell Distribution Width 14.3 % (11.5-14.5); White Blood Count 4.3 K/mm3 (4.5-10.0)
[2024-10-23 08:13] LABS: Glucose Point of Care 267 mg/dl (65-105)
[2024-10-23] MEDS: amLODIPine BESYLATE 10 MG TABLET PO (08:31)
[2024-10-23] MEDS: carvediloL 25 MG TABLET PO ×2 (08:31→21:35)
[2024-10-23] MEDS: LORATADINE 10 MG TABLET PO (08:32)
[2024-10-23] MEDS: PREGABALIN (*CRX) 75 MG CAPSULE PO ×2 (08:32→16:34)
[2024-10-23] MEDS: PANTOPRAZOLE 40 MG TABLET PO ×2 (08:32→16:34)
[2024-10-23] MEDS: SODIUM BICARBONATE TAB 650 MG TABLET PO ×2 (08:32→16:34)
[2024-10-23] MEDS: ISOSORBIDE MONONITRATE 60 MG TAB.ER.24H PO (08:32)
[2024-10-23] MEDS: CLOPIDOGREL BISULFATE 75 MG TABLET PO (08:32)
[2024-10-23] MEDS: OSELTAMIVIR PHOSPHATE 30 MG CAPSULE PO (08:32)
[2024-10-23] MEDS: AZITHROMYCIN 500 MG/NS 250 ML 500 MG/250 ML BAG 250 MG IVPB (09:28)
[2024-10-23] MEDS: ALPRAZolam (*CRX) 0.25 MG TABLET PO (09:31)
--- NOTE | 2024-10-23 09:48 | PM.IMPN ---
Progress Note: A&P Assessment and Plan (1) Metabolic acidosis: Code(s): E87.20 - Acidosis, unspecified Status: Acute Assessment and Plan: ABG: pH 7.253, pCO2 34.4, pO2 65, HCO3 14.8, repeat ABG showing pH 7.243, pCo2 34.8, pO2 84, HCO3 14.7. Metabolic acidosis likely secondary to CKD. Started on 150 MEQ Bicarb IV on 10/20, on 10/21 chemistry bicarb remains low at 17. Bicarb changed to 75 MEQ IV and PO bicarb 650 mg BID. 10/22/24 bicarb 19. Bicarb 21 today- drip dc'd. Continue to monitor Co2 on am chemistry. (2) Hypoxic respiratory failure: Code(s): J96.91 - Respiratory failure, unspecified with hypoxia Status: Acute Assessment and Plan: - SpO2 87% in the ED on room air, started on oxygen supplementation. Remains on 2L NC at this time. Continue to wean for spo2 > 90% - Suspected cause: Flu A and pneumonia - ABG: pH 7.253, pCO2 34.4, pO2 65, HCO3 14.8, repeat ABG showing pH 7.243, pCo2 34.8, pO2 84, HCO3 14.7. Metabolic acidosis likely secondary to CKD. Started on Bicarb drip. - EKG: sinus rhthym with HR 61 - D dimer: o.47 (WNL) - BNP elevated at 3910, possible CHF however BNP unreliable given patients kidney function - Echo ordered - Chest XR:CXR: Lingular and right middle lobe pneumonia. (3) Pneumonia: Code(s): J18.9 - Pneumonia, unspecified organism Status: Acute Assessment and Plan: CXR: Lingular and right middle lobe pneumonia. - started on CAP tx: azithromycin ceftriaxone on 10/20 - Viral PCR: positive for FLU A, started on tamiflu (course complete on 10/24) - Blood cultures obtained on 10/19: NGTD - Consider ordering legionella, mycoplasma and pneumococcal - Oxygen supplementation: 2L NC, baseline room air. Wean oxygen for spo2 > 90% - Monitor vital signs, I&Os, neuro status and patient is a fall risk - Follow WBC, serum electrolytes, temperature curves and cultures (4) Chronic kidney disease, stage IV (severe): Code(s): N18.4 - Chronic kidney disease, stage 4 (severe) Status: Acute Assessment and Plan: Acute on chronic baseline around 3.0-4.0, creatinine on admission 4.7. Last seen by nephrology, Dr. Rajput on 09/24. Has appointment with General Surgery for evaluation of PD catheter placement on 10/27/24 - BUN/Cr 4/4.9 on am labs - Avoid nephrotoxic medications - Renally dose medications - Monitor I/O - Nephrology consulted, appreciate recommendations (5) CHF (congestive heart failure): Code(s): I50.9 - Heart failure, unspecified Status: Acute Assessment and Plan: - current medications: Lisinopril 2.5 mg daily, imdur 50 mg daily, carvedilol 25 mg daily - BNP: 3910 however not fully reliable given patients kidney function - ABG: pH 7.253, pCO2 34.4, pO2 65, HCO3 14.8, repeat ABG showing pH 7.243, pCo2 34.8, pO2 84, HCO3 14.7. Metabolic acidosis likely secondary to CKD. Started on Bicarb drip. - EKG: sinus rhythm with HR 61 - Chest XR:CXR: Lingular and right middle lobe pneumonia. - Echo ordered - Monitor vital signs, I&Os, BUN/creatinine, daily weights, neuro status and patient is a fall risk - Monitor serum electrolytes, Keep serum Potassium>4 and serum Magnesium>2 and CBC - Magnesium 1.8, order Magnesium Sulfate 2 gram IVPB x1. - Potassium 3.8, ordered Potassium Chloride 20 meq PO x1. (6) Type 1 diabetes mellitus: Qualifiers: Diabetes mellitus complication status: without complication Qualified Code(s): E10.9 - Type 1 diabetes mellitus without complications Code(s): E10.9 - Type 1 diabetes mellitus without complications Status: Chronic Assessment and Plan: - hypoglycemia protocol - POC blood glucose ACHS - home medication - lispro on continuous glucose pump - correct regimen ordered - continuous glucose pump (7) Hypertension: Code(s): I10 - Essential (primary) hypertension Status: Chronic Assessment and Plan: Chronic, continue home medications - amlodipine 10 mg daily - lisinopril 2.5 mg daily - imdur 50 mg daily - carvedilol 25 mg daily - remains stable, continue to monitor (8) CAD (coronary artery disease): Code(s): I25.10 - Atherosclerotic heart disease of [place] coronary artery without angina pectoris Status: Acute Assessment and Plan: Continue Coreg, Plavix, isosorbide mononitrate, (9) Hypothyroidism: Code(s): E03.9 - Hypothyroidism, unspecified Status: Acute Assessment and Plan: Chronic, continue home medications - synthroid 50 mcg daily - TSH 3.390 Subjective Date/time seen: 10/23/24 09:48 Interval history: Patient sitting up on the side of the bed. Patient had just returned from going to the rest room and having a bowel movement. Patient reports shortness of breath with exertion. Patient denies chest pain, palpitations, nausea, vomiting, headache, or dizziness. Patient reports getting stir crazy in room and needing a Xanax if not able to go home today. Review of Systems Review of Systems: All systems reviewed & are unremarkable except as noted in HPI and below Exam Const: General: comfortable and no acute distress Resp: Effort & Inspection: normal respiratory effort Auscultation: diminished lung sounds Cardio: Rate: regular rate Rhythm: regular rhythm Other: Telemetry-75 GI: GI Palp: Yes Soft to palpation Auscultation: normal bowel sounds Neuro: General: gait normal Speech: normal speech Extrem: General: pedal edema bilaterally (trace) Psych: Mental Status: mental status grossly normal Affect: normal affect Objective Data Vital Signs Vital Signs: Vital Signs - 24 hr 10/22/24 10:12 10/22/24 12:00 10/22/24 13:46 Temperature 98.6 F Pulse Rate 82 74 75 Respiratory Rate 12 20 Blood Pressure 131/63 Pulse Oximetry 90 Oxygen Delivery Oxygen Flow Rate Fraction of Inspired Oxygen 10/22/24 13:54 10/22/24 15:00 10/22/24 15:28 Temperature 98.5 F Pulse Rate 76 81 Respiratory Rate 20 16 Blood Pressure 148/60 H Pulse Oximetry 89 L 90 Oxygen Delivery Nasal Cannula Oxygen Flow Rate 2 Fraction of Inspired Oxygen 10/22/24 16:00 10/22/24 16:31 10/22/24 20:00 Temperature 98.9 F Pulse Rate 80 84 Respiratory Rate 18 Blood Pressure 158/77 H Pulse Oximetry 92 93 Oxygen Delivery Nasal Cannula Oxygen Flow Rate 3 Fraction of Inspired Oxygen 10/22/24 20:00 10/22/24 20:00 10/22/24 20:18 Temperature Pulse Rate 75 76 77 Respiratory Rate 20 20 Blood Pressure Pulse Oximetry 92 Oxygen Delivery Nasal Cannula Oxygen Flow Rate 3 Fraction of Inspired Oxygen 10/22/24 20:24 10/22/24 20:25 10/23/24 00:00 Temperature 97.6 F Pulse Rate 75 76 Respiratory Rate 20 18 Blood Pressure 155/57 H Pulse Oximetry 92 90 Oxygen Delivery Nasal Cannula Oxygen Flow Rate 3 Fraction of Inspired Oxygen 10/23/24 00:00 10/23/24 04:00 10/23/24 04:00 Temperature 97.7 F Pulse Rate 74 76 73 Respiratory Rate 18 Blood Pressure 142/55 H Pulse Oximetry 95 Oxygen Delivery Oxygen Flow Rate Fraction of Inspired Oxygen 10/23/24 06:03 10/23/24 08:00 10/23/24 08:00 Temperature 97.8 F Pulse Rate 71 77 Respiratory Rate 18 Blood Pressure 148/68 H Pulse Oximetry 92 92 Oxygen Delivery Nasal Cannula Oxygen Flow Rate 3 Fraction of Inspired Oxygen 10/23/24 08:31 Temperature Pulse Rate 70 Respiratory Rate Blood Pressure Pulse Oximetry Oxygen Delivery Oxygen Flow Rate Fraction of Inspired Oxygen Intake/Output Intake/Output: Intake & Output 10/20/24 10/21/24 10/22/24 10/23/24 23:59 23:59 23:59 23:59 Intake Total 1970 1260 2151.7 360 Output Total 1725 1800 1700 650 Balance 245 -540 451.7 -290 Meds/Results Medications: Active Medications Generic Name Dose Route Start Last Admin Trade Name Freq PRN Reason Stop Dose Admin Acetaminophen 650 mg 10/19/24 16:26 10/22/24 20:09 Acetaminophen 325 Mg Tablet PO 650 mg Q4H PRN Administration Mild Pain (1-3) or Fever Albuterol/Ipratropium 3 ml 10/20/24 02:00 10/23/24 02:31 Ipratropium 0.5 Mg/Albuterol Sulfate 2.5 Mg Ampul.Neb 3 Ml INHALATION Not Given Q6HRT KALANI Alprazolam 0.25 mg 10/19/24 20:24 10/23/24 09:31 Alprazolam (*Crx) 0.25 Mg Tablet PO 0.25 mg TID PRN Administration Anxiety Amlodipine Besylate 10 mg 10/20/24 09:00 10/23/24 08:31 Amlodipine Besylate 10 Mg Tablet PO 10 mg DAILY KALANI Administration Atorvastatin Calcium 40 mg 10/19/24 21:00 10/22/24 20:08 Atorvastatin 40 Mg Tablet PO 40 mg HS KALANI Administration Carvedilol 25 mg 10/19/24 21:00 10/23/24 08:31 Carvedilol 25 Mg Tablet PO 25 mg Q12HR KALANI Administration Clopidogrel Bisulfate 75 mg 10/20/24 09:00 10/23/24 08:32 Clopidogrel Bisulfate 75 Mg Tablet PO 75 mg DAILY KALANI Administration Dextrose 12.5 gm 10/19/24 16:26 Dextrose 50% 25 Gm/50 Ml Syringe IV PUSH PRN PRN Hypoglycemia Protocol Docusate Sodium 100 mg 10/20/24 09:00 10/23/24 08:32 Docusate Sodium 100 Mg Capsule PO Not Given DAILY KALANI Glucagon 1 mg 10/19/24 16:26 Glucagon For Inj 1 Mg Vial IM PRN PRN Hypoglycemia Protocol Glucose 15 gm 10/19/24 16:26 Glucose Oral Gel 15 Gm Of Glucse In 37.5 Gm Tube PO PRN PRN Hypoglycemia Protocol Home Med 1 each 10/22/24 06:00 Home Medication XX 11/21/24 05:59 DAILY@0600 KALANI Dextrose 1,000 mls @ 100 mls/hr 10/19/24 16:26 Dextrose 5% 1,000 Ml IVPB PRN PRN Hypoglycemia Protocol Azithromycin 500 mg in 250 mls @ 250 mls/hr 10/20/24 09:00 10/23/24 09:28 Zithromax IVPB 250 mls/hr Q24H KALANI Administration Ceftriaxone Sodium 1 gm in 50 mls @ 100 mls/hr 10/20/24 09:00 10/23/24 08:32 Rocephin 1 Gm/Ns 50 Ml IVPB 100 mls/hr Q24H KALANI Administration Isosorbide Mononitrate 60 mg 10/20/24 09:00 10/23/24 08:32 Isosorbide Mononitrate 60 Mg Tab.Er.24h PO 60 mg DAILY KALANI Administration Levothyroxine Sodium 50 mcg 10/20/24 06:30 10/23/24 05:54 Levothyroxine Sodium 50 Mcg Tablet PO 50 mcg DAILY@0630 KALANI Administration Lisinopril 2.5 mg 10/20/24 09:00 10/20/24 08:40 Lisinopril 2.5 Mg Tablet PO 2.5 mg DAILY KALANI Administration Loratadine 10 mg 10/20/24 09:00 10/23/24 08:32 Loratadine 10 Mg Tablet PO 10 mg DAILY KALANI Administration Oseltamivir Phosphate 30 mg 10/20/24 09:00 10/23/24 08:32 Oseltamivir Phosphate 30 Mg Capsule PO 10/24/24 08:59 30 mg DAILY KALANI Administration Pantoprazole Sodium 40 mg 10/19/24 20:35 10/23/24 08:32 Pantoprazole 40 Mg Tablet PO 40 mg BID KALANI Administration Pregabalin 75 mg 10/19/24 20:35 10/23/24 08:32 Pregabalin (*Crx) 75 Mg Capsule PO 75 mg BID KALANI Administration Sodium Bicarbonate 650 mg 10/21/24 09:00 10/23/24 08:32 Sodium Bicarbonate Tab 650 Mg Tablet PO 650 mg BID KALANI Administration Radiology Results: ITS Impressions Chest X-Ray 10/19/24 12:27 IMPRESSION: 1. Lingular and right middle lobe pneumonia. Labs Labs: Laboratory Results - last 24 hr 10/22/24 10/22/24 10/22/24 12:03 16:43 20:32 WBC RBC Hgb Hct MCV MCH MCHC RDW Plt Count MPV Immature Gran % (Auto) Neut % (Auto) Lymph % (Auto) [place] % (Auto) Eos % (Auto) Baso % (Auto) Lymph # (Auto) [place] # (Auto) Eos # (Auto) Baso # (Auto) Abs Immat Gran (auto) Absolute Neuts (auto) Absolute Nucleated RBC Nucleated RBC % % Immature Plt Fraction Sodium Potassium Chloride Carbon Dioxide Anion Gap BUN Creatinine Estim Creat Clear Calc Estimated GFR Glucose POC Capillary Glucose 205 H 258 H 241 H Calcium Phosphorus Magnesium Total Bilirubin AST ALT Alkaline Phosphatase Total Protein Albumin 10/23/24 10/23/24 05:15 08:10 WBC 4.3 L RBC 3.35 L Hgb 9.8 L Hct 30.7 L MCV 91.6 MCH 29.3 MCHC 31.9 L RDW 14.3 Plt Count 90 L MPV 12.5 H Immature Gran % (Auto) 0.2 Neut % (Auto) 60.2 Lymph % (Auto) 26.5 [place] % (Auto) 7.0 Eos % (Auto) 5.2 H Baso % (Auto) 0.9 Lymph # (Auto) 1.13 [place] # (Auto) 0.3 Eos # (Auto) 0.2 Baso # (Auto) 0.0 Abs Immat Gran (auto) 0.01 Absolute Neuts (auto) 2.6 Absolute Nucleated RBC 0.000 Nucleated RBC % 0.0 % Immature Plt Fraction 10.0 Sodium 139 Potassium 3.8 Chloride 110 H Carbon Dioxide 21 L Anion Gap 8 BUN 44 H Creatinine 4.90 H Estim Creat Clear Calc 18 Estimated GFR 13 L Glucose 240 H POC Capillary Glucose 267 H Calcium 8.5 Phosphorus 4.8 H Magnesium 1.8 Total Bilirubin 0.4 AST 19 ALT 12 Alkaline Phosphatase 83 Total Protein 7.0 Albumin 3.5 Quality VTE Prophylaxis VTE prophylaxis: mechanical ordered
[2024-10-23 12:18] LABS: Glucose Point of Care 259 mg/dl (65-105)
--- NOTE | 2024-10-23 12:40 | P.PNNP_ITS ---
Subjective Date/time seen: 10/23/24 12:40 Objective Data Vital Signs Vital Signs: Vital Signs Temp Pulse Resp BP Pulse Ox O2 Del Method O2 Flow Rate 10/23/24 12:00 83 20 94 Nasal Cannula 3 10/23/24 11:04 98.0 F 75 20 134/62 91 10/23/24 08:31 70 10/23/24 08:00 92 Nasal Cannula 3 10/23/24 08:00 77 10/23/24 06:03 97.8 F 71 18 148/68 H 92 10/23/24 04:00 73 10/23/24 04:00 97.7 F 76 18 142/55 H 95 10/23/24 00:00 74 10/23/24 00:00 97.6 F 76 18 155/57 H 90 10/22/24 20:25 75 20 10/22/24 20:24 92 Nasal Cannula 3 10/22/24 20:18 77 20 10/22/24 20:00 76 10/22/24 20:00 75 20 92 Nasal Cannula 3 10/22/24 20:00 98.9 F 84 18 158/77 H 93 Intake/Output Intake/Output: Intake & Output 10/20/24 10/21/24 10/22/24 10/23/24 23:59 23:59 23:59 23:59 Intake Total 1970 1260 2151.7 580 Output Total 1725 1800 1700 650 Balance 245 -540 451.7 -70 Meds/Results Medications: Active Medications Generic Name Dose Route Start Last Admin Trade Name Freq PRN Reason Stop Dose Admin Acetaminophen 650 mg 10/19/24 16:26 10/22/24 20:09 Acetaminophen 325 Mg Tablet PO 650 mg Q4H PRN Administration Mild Pain (1-3) or Fever Albuterol/Ipratropium 3 ml 10/20/24 02:00 10/23/24 13:54 Ipratropium 0.5 Mg/Albuterol Sulfate 2.5 Mg Ampul.Neb 3 Ml INHALATION 3 ml Q6HRT KALANI Administration Alprazolam 0.25 mg 10/19/24 20:24 10/23/24 09:31 Alprazolam (*Crx) 0.25 Mg Tablet PO 0.25 mg TID PRN Administration Anxiety Amlodipine Besylate 10 mg 10/20/24 09:00 10/23/24 08:31 Amlodipine Besylate 10 Mg Tablet PO 10 mg DAILY K[facility]ANI Administration Amoxicillin/Clavulanate Potassium 1 tablet 10/24/24 09:00 Amoxicillin/Clavulanate K 500-125 Mg Tab PO 10/26/24 21:01 Q12HR KALANI Atorvastatin Calcium 40 mg 10/19/24 21:00 10/22/24 20:08 Atorvastatin 40 Mg Tablet PO 40 mg HS KALANI Administration Azithromycin 500 mg 10/24/24 09:00 Azithromycin 250 Mg Tablet PO 10/24/24 09:01 ONCE ONE Carvedilol 25 mg 10/19/24 21:00 10/23/24 08:31 Carvedilol 25 Mg Tablet PO 25 mg Q12HR KALANI Administration Clopidogrel Bisulfate 75 mg 10/20/24 09:00 10/23/24 08:32 Clopidogrel Bisulfate 75 Mg Tablet PO 75 mg DAILY [facility] Administration Dextrose 12.5 gm 10/19/24 16:26 Dextrose 50% 25 Gm/50 Ml Syringe IV PUSH PRN PRN Hypoglycemia Protocol Docusate Sodium 100 mg 10/20/24 09:00 10/23/24 08:32 Docusate Sodium 100 Mg Capsule PO Not Given DAILY [facility] Glucagon 1 mg 10/19/24 16:26 Glucagon For Inj 1 Mg Vial IM PRN PRN Hypoglycemia Protocol Glucose 15 gm 10/19/24 16:26 Glucose Oral Gel 15 Gm Of Glucse In 37.5 Gm Tube PO PRN PRN Hypoglycemia Protocol Home Med 1 each 10/22/24 06:00 Home Medication XX 11/21/24 05:59 DAILY@0600 [facility] Dextrose 1,000 mls @ 100 mls/hr 10/19/24 16:26 Dextrose 5% 1,000 Ml IVPB PRN PRN Hypoglycemia Protocol Isosorbide Mononitrate 60 mg 10/20/24 09:00 10/23/24 08:32 Isosorbide Mononitrate 60 Mg Tab.Er.24h PO 60 mg DAILY [facility] Administration Levothyroxine Sodium 50 mcg 10/20/24 06:30 10/23/24 05:54 Levothyroxine Sodium 50 Mcg Tablet PO 50 mcg DAILY@0630 [facility] Administration Lisinopril 2.5 mg 10/20/24 09:00 10/20/24 08:40 Lisinopril 2.5 Mg Tablet PO 2.5 mg DAILY [facility] Administration Loratadine 10 mg 10/20/24 09:00 10/23/24 08:32 Loratadine 10 Mg Tablet PO 10 mg DAILY [facility] Administration Oseltamivir Phosphate 30 mg 10/20/24 09:00 10/23/24 08:32 Oseltamivir Phosphate 30 Mg Capsule PO 10/24/24 08:59 30 mg DAILY [facility] Administration Pantoprazole Sodium 40 mg 10/19/24 20:35 10/23/24 16:34 Pantoprazole 40 Mg Tablet PO 40 mg BID [facility] Administration Pregabalin 75 mg 10/19/24 20:35 10/23/24 16:34 Pregabalin (*Crx) 75 Mg Capsule PO 75 mg BID KALANI Administration Sodium Bicarbonate 650 mg 10/21/24 09:00 10/23/24 16:34 Sodium Bicarbonate Tab 650 Mg Tablet PO 650 mg BID K[facility] Administration Sodium Chloride 1 spray 10/23/24 13:06 10/23/24 16:34 Saline 0.65% Jimmy Soln 44 Ml Btl NASAL 1 spray Q6HR PRN Administration Congestion Radiology Results: ITS Impressions Chest X-Ray 10/19/24 12:27 IMPRESSION: 1. Lingular and right middle lobe pneumonia. Labs Labs: Laboratory Tests 10/23/24 05:15 10/23/24 05:15 Calcium 8.5 Phosphorus 4.8 H Magnesium 1.8 Total Bilirubin 0.4 AST 19 ALT 12 Alkaline Phosphatase 83 Total Protein 7.0 Albumin 3.5
[2024-10-23] MEDS: MAGNESIUM SULF 2 GM/WATER 50ML 2 GM/50 ML BAG IVPB (13:00)
[2024-10-23] MEDS: POTASSIUM CHLORIDE 20 MEQ ER TABLET PO (13:00)
[2024-10-23] MEDS: IPRATROPIUM 0.5 MG/ALBUTEROL SULFATE 2.5 MG AMPUL.NEB 3 ML INHALATION ×2 (13:54→22:42)
[2024-10-23] MEDS: SALINE 0.65% NAS SOLN 44 ML BTL 1 SPRAY NASAL (16:34)
[2024-10-23 17:16] LABS: Glucose Point of Care 257 mg/dl (65-105)
[2024-10-23 20:33] LABS: Glucose Point of Care 236 mg/dl (65-105)
[2024-10-23] MEDS: ATORVASTATIN 40 MG TABLET PO (21:35)
[2024-10-24] VITALS (21 sets, daily range): BP systolic 158–162; BP diastolic 64–66; PULSE 64–90; RESP 18–20; TEMP 36.3–36.4; O2SAT 85–92
[2024-10-24] MEDS: LEVOTHYROXINE SODIUM 50 MCG TABLET PO (05:07)
[2024-10-24 06:17] LABS: Basophils Percent Auto 0.6 % (0.2-1.2); Eosinophils Absolute Auto 0.3 K/mm3 (0-0.3); Hematocrit 30.5 % (42.0-52.0); Hemoglobin 9.7 g/dL (14.0-18.0); Immature Granulocyte Absolute 0.03 K/mm3 (0.00-0.031); Immature Granulocyte Percent A 0.6 % (0-0.5); Immature Platelet Fraction Pct 8.9 % (0.9-11.2); Lymphocytes Absolute Auto 1.22 K/mm3 (0.9-3.2); Lymphocytes Percent Auto 23.3 % (18.3-44.2); Mean Corpuscular HGB Conc 31.8 g/dl (32-36); Mean Corpuscular Hemoglobin 28.9 pg (26-34); Mean Corpuscular Volume 90.8 fl (80-100); Mean Platelet Volume 11.8 fl (7.4-10.4); Monocytes Absolute Auto 0.4 K/mm3 (0.1-0.6); Monocytes Percent Auto 6.7 % (2.6-8.5); Neutrophils Absolute Auto 3.3 K/mm3 (1.3-6.7); Neutrophils Percent Auto 63.8 % (45.5-73.1); Platelet Count Result 90 k/mm3 (150-375); Red Blood Count 3.36 M/mm3 (4.6-6.20); Red Cell Distribution Width 14.1 % (11.5-14.5); White Blood Count 5.2 K/mm3 (4.5-10.0)
[2024-10-24 06:24] LABS: Alanine Aminotransferase 11 U/L (6-50); Albumin Level 3.4 g/dL (3.5-5.1); Alkaline Phosphatase 94 U/L (38-126); Anion Gap 5 mmol/L (4-12); Aspartate Amino Transferase 17 U/L (17-59); Bilirubin,Total 0.4 mg/dL (0.2-1.3); Blood Urea Nitrogen 42 mg/dL (9-20); Calcium 8.4 mg/dL (8.4-10.2); Carbon Dioxide 20 mmol/L (22-30); Chloride 113 mmol/L (98-107); Estimated CRCL calculation 21 ml/min; Estimated Glomerular Filt Rate 15; Glucose 234 mg/dL (65-110); Phosphorus 4.4 mg/dL (2.5-4.5); Potassium 4.2 mmol/L (3.4-5.0); Sodium 138 mmol/L (137-145)
[2024-10-24 06:48] LABS: Platelet Estimate Decreased (Adequate); Schistocytes None Seen
[2024-10-24] MEDS: IPRATROPIUM 0.5 MG/ALBUTEROL SULFATE 2.5 MG AMPUL.NEB 3 ML INHALATION ×2 (07:25→13:13)
[2024-10-24 08:43] LABS: Glucose Point of Care 261 mg/dl (65-105)
[2024-10-24] MEDS: amLODIPine BESYLATE 10 MG TABLET PO ×2 (08:52→08:57)
[2024-10-24] MEDS: ISOSORBIDE MONONITRATE 60 MG TAB.ER.24H PO (08:56)
[2024-10-24] MEDS: AMOXICILLIN/CLAVULANATE K 500-125 MG TAB 1 TABLET PO (08:56)
[2024-10-24] MEDS: PANTOPRAZOLE 40 MG TABLET PO (08:56)
[2024-10-24] MEDS: PREGABALIN (*CRX) 75 MG CAPSULE PO (08:56)
[2024-10-24] MEDS: CLOPIDOGREL BISULFATE 75 MG TABLET PO (08:56)
[2024-10-24] MEDS: LORATADINE 10 MG TABLET PO (08:56)
[2024-10-24] MEDS: SODIUM BICARBONATE TAB 650 MG TABLET PO (08:56)
[2024-10-24] MEDS: carvediloL 25 MG TABLET PO (08:56)
[2024-10-24] MEDS: DOCUSATE SODIUM 100 MG CAPSULE PO (08:56)
[2024-10-24] MEDS: AZITHROMYCIN 250 MG TABLET 500 MG PO (09:02)
[2024-10-24] MEDS: EPOETIN ALFA-EPBX 20,000 UNITS/ML VIAL 20000 UNITS SUB-Q (09:03)
--- NOTE | 2024-10-24 09:29 | PM.PNNEP ---
Subjective Date/time seen: 10/24/24 09:29 Objective Data Vital Signs Vital Signs: Vital Signs Temp Pulse Resp BP Pulse Ox O2 Del Method O2 Flow Rate 10/24/24 10:00 97.6 F 70 19 158/64 H 92 10/24/24 09:00 92 Nasal Cannula 3 10/24/24 08:56 80 10/24/24 08:00 82 10/24/24 07:35 80 18 10/24/24 07:25 78 18 10/24/24 07:25 78 18 92 Nasal Cannula 3 10/24/24 06:00 97.3 F L 69 20 162/66 H 90 10/24/24 04:41 80 18 10/24/24 04:36 73 18 10/24/24 04:00 64 10/24/24 00:00 66 10/23/24 22:45 78 18 10/23/24 22:45 91 Nasal Cannula 3 10/23/24 21:56 98.0 F 80 20 155/68 H 92 10/23/24 21:35 83 10/23/24 20:00 78 10/23/24 20:00 91 Nasal Cannula 3 10/23/24 20:00 98.0 F 75 20 155/68 H 92 10/23/24 19:01 97.7 F 83 18 146/57 H 88 L 10/23/24 16:00 69 10/23/24 15:22 98.7 F 78 16 145/60 H 90 10/23/24 13:55 94 Nasal Cannula 3 10/23/24 13:54 83 20 10/23/24 12:00 70 Intake/Output Intake/Output: Intake & Output 10/21/24 10/22/24 10/23/24 10/24/24 23:59 23:59 23:59 23:59 Intake Total 1260 2151.7 1490 290 Output Total 1800 1700 900 900 Balance -540 451.7 590 -610 Meds/Results Medications: Active Medications Generic Name Dose Route Start Last Admin Trade Name Freq PRN Reason Stop Dose Admin Acetaminophen 650 mg 10/19/24 16:26 10/22/24 20:09 Acetaminophen 325 Mg Tablet PO 650 mg Q4H PRN Administration Mild Pain (1-3) or Fever Albuterol/Ipratropium 3 ml 10/20/24 02:00 10/24/24 07:25 Ipratropium 0.5 Mg/Albuterol Sulfate 2.5 Mg Ampul.Neb 3 Ml INHALATION 3 ml Q6HRT KALANI Administration Alprazolam 0.25 mg 10/19/24 20:24 10/23/24 09:31 Alprazolam (*Crx) 0.25 Mg Tablet PO 0.25 mg TID PRN Administration Anxiety Amlodipine Besylate 10 mg 10/20/24 09:00 10/24/24 08:57 Amlodipine Besylate 10 Mg Tablet PO 10 mg DAILY [facility] Administration Amoxicillin/Clavulanate Potassium 1 tablet 10/24/24 09:00 10/24/24 08:56 Amoxicillin/Clavulanate K 500-125 Mg Tab PO 10/26/24 21:01 1 tablet Q12HR KALANI Administration Atorvastatin Calcium 40 mg 10/19/24 21:00 10/23/24 21:35 Atorvastatin 40 Mg Tablet PO 40 mg HS [facility]ALANI Administration Carvedilol 25 mg 10/19/24 21:00 10/24/24 08:56 Carvedilol 25 Mg Tablet PO 25 mg Q12HR KALANI Administration Clopidogrel Bisulfate 75 mg 10/20/24 09:00 10/24/24 08:56 Clopidogrel Bisulfate 75 Mg Tablet PO 75 mg DAILY [facility] Administration Dextrose 12.5 gm 10/19/24 16:26 Dextrose 50% 25 Gm/50 Ml Syringe IV PUSH PRN PRN Hypoglycemia Protocol Docusate Sodium 100 mg 10/20/24 09:00 10/24/24 08:56 Docusate Sodium 100 Mg Capsule PO 100 mg DAILY [facility] Administration Glucagon 1 mg 10/19/24 16:26 Glucagon For Inj 1 Mg Vial IM PRN PRN Hypoglycemia Protocol Glucose 15 gm 10/19/24 16:26 Glucose Oral Gel 15 Gm Of Glucse In 37.5 Gm Tube PO PRN PRN Hypoglycemia Protocol Home Med 1 each 10/22/24 06:00 Home Medication XX 11/21/24 05:59 DAILY@0600 [facility] Dextrose 1,000 mls @ 100 mls/hr 10/19/24 16:26 Dextrose 5% 1,000 Ml IVPB PRN PRN Hypoglycemia Protocol Isosorbide Mononitrate 60 mg 10/20/24 09:00 10/24/24 08:56 Isosorbide Mononitrate 60 Mg Tab.Er.24h PO 60 mg DAILY [facility] Administration Levothyroxine Sodium 50 mcg 10/20/24 06:30 10/24/24 05:07 Levothyroxine Sodium 50 Mcg Tablet PO 50 mcg DAILY@0630 [facility] Administration Lisinopril 2.5 mg 10/20/24 09:00 10/20/24 08:40 Lisinopril 2.5 Mg Tablet PO 2.5 mg DAILY [facility] Administration Loratadine 10 mg 10/20/24 09:00 10/24/24 08:56 Loratadine 10 Mg Tablet PO 10 mg DAILY [facility] Administration Pantoprazole Sodium 40 mg 10/19/24 20:35 10/24/24 08:56 Pantoprazole 40 Mg Tablet PO 40 mg BID [facility] Administration Pregabalin 75 mg 10/19/24 20:35 10/24/24 08:56 Pregabalin (*Crx) 75 Mg Capsule PO 75 mg BID [facility]ANI Administration Sodium Bicarbonate 650 mg 10/21/24 09:00 10/24/24 08:56 Sodium Bicarbonate Tab 650 Mg Tablet PO 650 mg BID [facility] Administration Sodium Chloride 1 spray 10/23/24 13:06 10/23/24 16:34 Saline 0.65% Jimmy Soln 44 Ml Btl NASAL 1 spray Q6HR PRN Administration Congestion Venlafaxine HCl 150 mg 10/24/24 10:45 10/24/24 11:02 Venlafaxine Hcl Xr 75 Mg Cap.Er.24h PO 150 mg DAILY [facility] Administration Radiology Results: ITS Impressions Chest X-Ray 10/19/24 12:27 IMPRESSION: 1. Lingular and right middle lobe pneumonia. Labs Labs: Laboratory Tests 10/24/24 05:56 10/24/24 05:56 10/23/24 10/23/24 10/23/24 12:15 17:12 19:36 WBC RBC Hgb Hct MCV MCH MCHC RDW Plt Count MPV Immature Gran % (Auto) Neut % (Auto) Lymph % (Auto) Rogers % (Auto) Eos % (Auto) Baso % (Auto) Lymph # (Auto) Rogers # (Auto) Eos # (Auto) Baso # (Auto) Abs Immat Gran (auto) Absolute Neuts (auto) Absolute Nucleated RBC Nucleated RBC % Platelet Estimate % Immature Plt Fraction Schistocytes Sodium Potassium Chloride Carbon Dioxide Anion Gap BUN Creatinine Estim Creat Clear Calc Estimated GFR Glucose POC Capillary Glucose 259 H 257 H 236 H Calcium Phosphorus Magnesium Total Bilirubin AST ALT Alkaline Phosphatase Total Protein Albumin 10/24/24 10/24/24 05:56 08:38 WBC 5.2 RBC 3.36 L Hgb 9.7 L Hct 30.5 L MCV 90.8 MCH 28.9 MCHC 31.8 L RDW 14.1 Plt Count 90 L MPV 11.8 H Immature Gran % (Auto) 0.6 H Neut % (Auto) 63.8 Lymph % (Auto) 23.3 Rogers % (Auto) 6.7 Eos % (Auto) 5.0 H Baso % (Auto) 0.6 Lymph # (Auto) 1.22 Rogers # (Auto) 0.4 Eos # (Auto) 0.3 Baso # (Auto) 0.0 Abs Immat Gran (auto) 0.03 Absolute Neuts (auto) 3.3 Absolute Nucleated RBC 0.000 Nucleated RBC % 0.0 Platelet Estimate Decreased % Immature Plt Fraction 8.9 Schistocytes None seen Sodium 138 Potassium 4.2 Chloride 113 H Carbon Dioxide 20 L Anion Gap 5 BUN 42 H Creatinine 4.20 H Estim Creat Clear Calc 21 Estimated GFR 15 L Glucose 234 H POC Capillary Glucose 261 H Calcium 8.4 Phosphorus 4.4 Magnesium 2.0 Total Bilirubin 0.4 AST 17 ALT 11 Alkaline Phosphatase 94 Total Protein 6.0 L Albumin 3.4 L
--- NOTE | 2024-10-24 10:40 | PM.IMPN ---
Subjective Date/time seen: 10/24/24 10:40 Review of Systems Review of Systems: All systems reviewed & are unremarkable except as noted in HPI and below Objective Data Vital Signs Vital Signs: Vital Signs - 24 hr 10/23/24 11:04 10/23/24 12:00 10/23/24 13:54 Temperature 98.0 F Pulse Rate 75 70 83 Respiratory Rate 20 20 Blood Pressure 134/62 Pulse Oximetry 91 Oxygen Delivery Oxygen Flow Rate 10/23/24 13:55 10/23/24 15:22 10/23/24 16:00 Temperature 98.7 F Pulse Rate 78 69 Respiratory Rate 16 Blood Pressure 145/60 H Pulse Oximetry 94 90 Oxygen Delivery Nasal Cannula Oxygen Flow Rate 3 10/23/24 19:01 10/23/24 20:00 10/23/24 20:00 Temperature 97.7 F 98.0 F Pulse Rate 83 75 Respiratory Rate 18 20 Blood Pressure 146/57 H 155/68 H Pulse Oximetry 88 L 92 91 Oxygen Delivery Nasal Cannula Oxygen Flow Rate 3 10/23/24 20:00 10/23/24 21:35 10/23/24 21:56 Temperature 98.0 F Pulse Rate 78 83 80 Respiratory Rate 20 Blood Pressure 155/68 H Pulse Oximetry 92 Oxygen Delivery Oxygen Flow Rate 10/23/24 22:45 10/23/24 22:45 10/24/24 00:00 Temperature Pulse Rate 78 66 Respiratory Rate 18 Blood Pressure Pulse Oximetry 91 Oxygen Delivery Nasal Cannula Oxygen Flow Rate 3 10/24/24 04:00 10/24/24 04:36 10/24/24 04:41 Temperature Pulse Rate 64 73 80 Respiratory Rate 18 18 Blood Pressure Pulse Oximetry Oxygen Delivery Oxygen Flow Rate 10/24/24 06:00 10/24/24 07:25 10/24/24 07:25 Temperature 97.3 F L Pulse Rate 69 78 78 Respiratory Rate 20 18 18 Blood Pressure 162/66 H Pulse Oximetry 90 92 Oxygen Delivery Nasal Cannula Oxygen Flow Rate 3 10/24/24 07:35 10/24/24 08:56 Temperature Pulse Rate 80 80 Respiratory Rate 18 Blood Pressure Pulse Oximetry Oxygen Delivery Oxygen Flow Rate Intake/Output Intake/Output: Intake & Output 10/21/24 10/22/24 10/23/24 10/24/24 23:59 23:59 23:59 23:59 Intake Total 1260 2151.7 1490 290 Output Total 1800 1700 900 900 Balance -540 451.7 590 -610 Meds/Results Medications: Active Medications Generic Name Dose Route Start Last Admin Trade Name Araceli PRN Reason Stop Dose Admin Acetaminophen 650 mg 10/19/24 16:26 10/22/24 20:09 Acetaminophen 325 Mg Tablet PO 650 mg Q4H PRN Administration Mild Pain (1-3) or Fever Albuterol/Ipratropium 3 ml 10/20/24 02:00 10/24/24 07:25 Ipratropium 0.5 Mg/Albuterol Sulfate 2.5 Mg Ampul.Neb 3 Ml INHALATION 3 ml Q6HRT KALANI Administration Alprazolam 0.25 mg 10/19/24 20:24 10/23/24 09:31 Alprazolam (*Crx) 0.25 Mg Tablet PO 0.25 mg TID PRN Administration Anxiety Amlodipine Besylate 10 mg 10/20/24 09:00 10/24/24 08:57 Amlodipine Besylate 10 Mg Tablet PO 10 mg DAILY [facility] Administration Amoxicillin/Clavulanate Potassium 1 tablet 10/24/24 09:00 10/24/24 08:56 Amoxicillin/Clavulanate K 500-125 Mg Tab PO 10/26/24 21:01 1 tablet Q12HR [facility]AL[facility] Administration Atorvastatin Calcium 40 mg 10/19/24 21:00 10/23/24 21:35 Atorvastatin 40 Mg Tablet PO 40 mg HS [facility] Administration Carvedilol 25 mg 10/19/24 21:00 10/24/24 08:56 Carvedilol 25 Mg Tablet PO 25 mg Q12HR KALANI Administration Clopidogrel Bisulfate 75 mg 10/20/24 09:00 10/24/24 08:56 Clopidogrel Bisulfate 75 Mg Tablet PO 75 mg DAILY [facility] Administration Dextrose 12.5 gm 10/19/24 16:26 Dextrose 50% 25 Gm/50 Ml Syringe IV PUSH PRN PRN Hypoglycemia Protocol Docusate Sodium 100 mg 10/20/24 09:00 10/24/24 08:56 Docusate Sodium 100 Mg Capsule PO 100 mg DAILY [facility] Administration Glucagon 1 mg 10/19/24 16:26 Glucagon For Inj 1 Mg Vial IM PRN PRN Hypoglycemia Protocol Glucose 15 gm 10/19/24 16:26 Glucose Oral Gel 15 Gm Of Glucse In 37.5 Gm Tube PO PRN PRN Hypoglycemia Protocol Home Med 1 each 10/22/24 06:00 Home Medication XX 11/21/24 05:59 DAILY@0600 [facility] Dextrose 1,000 mls @ 100 mls/hr 10/19/24 16:26 Dextrose 5% 1,000 Ml IVPB PRN PRN Hypoglycemia Protocol Isosorbide Mononitrate 60 mg 10/20/24 09:00 10/24/24 08:56 Isosorbide Mononitrate 60 Mg Tab.Er.24h PO 60 mg DAILY [facility] Administration Levothyroxine Sodium 50 mcg 10/20/24 06:30 10/24/24 05:07 Levothyroxine Sodium 50 Mcg Tablet PO 50 mcg DAILY@0630 [facility] Administration Lisinopril 2.5 mg 10/20/24 09:00 10/20/24 08:40 Lisinopril 2.5 Mg Tablet PO 2.5 mg DAILY [facility] Administration Loratadine 10 mg 10/20/24 09:00 10/24/24 08:56 Loratadine 10 Mg Tablet PO 10 mg DAILY [facility] Administration Pantoprazole Sodium 40 mg 10/19/24 20:35 10/24/24 08:56 Pantoprazole 40 Mg Tablet PO 40 mg BID [facility] Administration Pregabalin 75 mg 10/19/24 20:35 10/24/24 08:56 Pregabalin (*Crx) 75 Mg Capsule PO 75 mg BID [facility] Administration Sodium Bicarbonate 650 mg 10/21/24 09:00 10/24/24 08:56 Sodium Bicarbonate Tab 650 Mg Tablet PO 650 mg BID [facility] Administration Sodium Chloride 1 spray 10/23/24 13:06 10/23/24 16:34 Saline 0.65% Jimmy Soln 44 Ml Btl NASAL 1 spray Q6HR PRN Administration Congestion Radiology Results: ITS Impressions Chest X-Ray 10/19/24 12:27 IMPRESSION: 1. Lingular and right middle lobe pneumonia. Labs Labs: Laboratory Results - last 24 hr 10/23/24 10/23/24 10/23/24 12:15 17:12 19:36 WBC RBC Hgb Hct MCV MCH MCHC RDW Plt Count MPV Immature Gran % (Auto) Neut % (Auto) Lymph % (Auto) Christian % (Auto) Eos % (Auto) Baso % (Auto) Lymph # (Auto) Christian # (Auto) Eos # (Auto) Baso # (Auto) Abs Immat Gran (auto) Absolute Neuts (auto) Absolute Nucleated RBC Nucleated RBC % Platelet Estimate % Immature Plt Fraction Schistocytes Sodium Potassium Chloride Carbon Dioxide Anion Gap BUN Creatinine Estim Creat Clear Calc Estimated GFR Glucose POC Capillary Glucose 259 H 257 H 236 H Calcium Phosphorus Magnesium Total Bilirubin AST ALT Alkaline Phosphatase Total Protein Albumin 10/24/24 10/24/24 05:56 08:38 WBC 5.2 RBC 3.36 L Hgb 9.7 L Hct 30.5 L MCV 90.8 MCH 28.9 MCHC 31.8 L RDW 14.1 Plt Count 90 L MPV 11.8 H Immature Gran % (Auto) 0.6 H Neut % (Auto) 63.8 Lymph % (Auto) 23.3 Christian % (Auto) 6.7 Eos % (Auto) 5.0 H Baso % (Auto) 0.6 Lymph # (Auto) 1.22 Christian # (Auto) 0.4 Eos # (Auto) 0.3 Baso # (Auto) 0.0 Abs Immat Gran (auto) 0.03 Absolute Neuts (auto) 3.3 Absolute Nucleated RBC 0.000 Nucleated RBC % 0.0 Platelet Estimate Decreased % Immature Plt Fraction 8.9 Schistocytes None seen Sodium 138 Potassium 4.2 Chloride 113 H Carbon Dioxide 20 L Anion Gap 5 BUN 42 H Creatinine 4.20 H Estim Creat Clear Calc 21 Estimated GFR 15 L Glucose 234 H POC Capillary Glucose 261 H Calcium 8.4 Phosphorus 4.4 Magnesium 2.0 Total Bilirubin 0.4 AST 17 ALT 11 Alkaline Phosphatase 94 Total Protein 6.0 L Albumin 3.4 L
[2024-10-24] MEDS: VENLAFAXINE HCL XR 75 MG CAP.ER.24H 150 MG PO (11:02)
--- NOTE | 2024-10-24 11:09 | PM.DS ---
DS: Admitting Diagnosis Discharge Date 10/24/2024 Admitting Diagnosis Cough, shortness of breath x 2 days DS: Discharge Diagnosis Discharge Diagnosis (1) Metabolic acidosis: Code(s): E87.20 - Acidosis, unspecified Status: Acute (2) Hypoxic respiratory failure: Code(s): J96.91 - Respiratory failure, unspecified with hypoxia Status: Acute (3) Pneumonia: Code(s): J18.9 - Pneumonia, unspecified organism Status: Acute (4) CKD (chronic kidney disease) stage 4, GFR 15-29 ml/min: Code(s): N18.4 - Chronic kidney disease, stage 4 (severe) Status: Acute (5) CHF (congestive heart failure): Code(s): I50.9 - Heart failure, unspecified Status: Acute (6) 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: Code(s): E10.22 - Type 1 diabetes mellitus with diabetic chronic kidney disease Status: Acute (7) Hypertension: Code(s): I10 - Essential (primary) hypertension Status: Chronic (8) CAD (coronary artery disease): Code(s): I25.10 - Atherosclerotic heart disease of [place] coronary artery without angina pectoris Status: Acute (9) Hypothyroidism: Code(s): E03.9 - Hypothyroidism, unspecified Status: Acute DS: Summary Hospital Course Hospital Course: In the ED the patient test positive for influenza a, creatinine of 4.7 baseline some are around 4, BUN of 38, GFR 13, phosphorus of 5.8 BNP of 3910, chest x-ray showing Lingular and right middle lobe pneumonia. EKG shows shows sinus rhythm. Patient treated for Pneumonia with IV antibiotics then switched to oral. Patient with metabolic acidosis and was treated with IV drip and oral bicarbonate. D dimer: 0.47 (WNL) BNP elevated at 3910, possible CHF however BNP unreliable given patients kidney function Echo completed, awaiting reading. Blood cultures no growth. Patient was followed by Nephrology during hospitalization. Creatinine 4.20 at discharge. Home 02 evaluation: Wear oxygen at 3 liters per nasal cannula at rest and wear 4 liters with activity. Patient sent home with oxygen. Patient has an outpatient appointment with surgery consultation on Sunday to get a peritoneal catheter placed for dialysis. Patient to follow with Dr. Rajput Electrical Controls Designer outpatient. Status at Discharge Functional status at discharge: independent ambulation Overall status at discharge: patient is progressing back to baseline Time Spent with Patient Time attestation: Total time spent providing and/or coordinating discharge services: Time spent: Greater than 30 minutes Exam Const: General: comfortable and no acute distress Resp: Auscultation: wheezes (faint) expiratory wheezes and diminished lung sounds Cardio: Rate: regular rate Rhythm: regular rhythm Other: Telemetry- SR 76 GI: GI Palp: Yes Soft to palpation Auscultation: normal bowel sounds Extrem: General: pedal edema bilaterally (Trace) Psych: Mental Status: mental status grossly normal Affect: normal affect DS: Data Data Completed and Pending Labs on day of discharge: Labs from last 24 hours 10/24/24 10/24/24 10/23/24 08:38 05:56 19:36 WBC 5.2 RBC 3.36 L Hgb 9.7 L Hct 30.5 L MCV 90.8 MCH 28.9 MCHC 31.8 L RDW 14.1 Plt Count 90 L MPV 11.8 H Immature Gran % (Auto) 0.6 H Neut % (Auto) 63.8 Lymph % (Auto) 23.3 [place] % (Auto) 6.7 Eos % (Auto) 5.0 H Baso % (Auto) 0.6 Lymph # (Auto) 1.22 [place] # (Auto) 0.4 Eos # (Auto) 0.3 Baso # (Auto) 0.0 Abs Immat Gran (auto) 0.03 Absolute Neuts (auto) 3.3 Absolute Nucleated RBC 0.000 Nucleated RBC % 0.0 Platelet Estimate Decreased % Immature Plt Fraction 8.9 Schistocytes None seen Sodium 138 Potassium 4.2 Chloride 113 H Carbon Dioxide 20 L Anion Gap 5 BUN 42 H Creatinine 4.20 H Estim Creat Clear Calc 21 Estimated GFR 15 L Glucose 234 H POC Capillary Glucose 261 H 236 H Calcium 8.4 Phosphorus 4.4 Magnesium 2.0 Total Bilirubin 0.4 AST 17 ALT 11 Alkaline Phosphatase 94 Total Protein 6.0 L Albumin 3.4 L 10/23/24 10/23/24 17:12 12:15 WBC RBC Hgb Hct MCV MCH MCHC RDW Plt Count MPV Immature Gran % (Auto) Neut % (Auto) Lymph % (Auto) [place] % (Auto) Eos % (Auto) Baso % (Auto) Lymph # (Auto) [place] # (Auto) Eos # (Auto) Baso # (Auto) Abs Immat Gran (auto) Absolute Neuts (auto) Absolute Nucleated RBC Nucleated RBC % Platelet Estimate % Immature Plt Fraction Schistocytes Sodium Potassium Chloride Carbon Dioxide Anion Gap BUN Creatinine Estim Creat Clear Calc Estimated GFR Glucose POC Capillary Glucose 257 H 259 H Calcium Phosphorus Magnesium Total Bilirubin AST ALT Alkaline Phosphatase Total Protein Albumin Preliminary micro results at discharge 10/19/24 12:14 Blood Culture - Preliminary Blood 10/19/24 12:28 Blood Culture - Preliminary Blood Discharge Plan Discharge Attending physician on discharge: Manuel Brown Consulting providers: Seda Rajput Discharging Clinician: Leann Dukes Anticipated Discharge Date/Time: 10/24/24 13:00 Patient Disposition: Home, Self-Care Activity: february shower Diet: heart healthy and diabetic Discharge Instructions: Wear oxygen at 3 liters per nasal cannula at rest and wear 4 liters with activity. DO NOT allow anyone to smoke near oxygen. Take all doses of antibiotics. Go surgical consult appointment on 10/27/24. Follow up with Dr. Rajput at your scheduled appointment time. If you develop shortness of breath not improved with oxygen or require higher oxygen need then prescribed seek medical attention. Thank you for entrusting [facility] with your healthcare! Patient Instructions: Antibiotic Form, Heart Failure (DC), Chronic Kidney Disease (DC), Heart Healthy Diet (DC), Using Oxygen at Home (DC), Hypertension (DC), Pneumonia (DC), Metabolic Acidosis (GEN), Diabetes Type 1: Management (DC) Patient Language: Kazakh Stand Alone Forms: General Discharge Information Follow-up/Referrals: Seda Rajput MD [Physician] - Keep Reg. Scheduled Appt. Denisha Hansen PA-C [Primary Care Provider] - 1 Week Discharge Medications: New sodium bicarbonate 650 mg Tablet 650 mg PO BID Qty: 60 0RF amoxicillin-pot clavulanate [Augmentin] 500-125 mg Tablet 1 tablet PO Q12HR Qty: 5 0RF Continued clopidogrel 75 mg tablet 75 mg PO DAILY albuterol sulfate [Ventolin HFA] 90 mcg/actuation HFA aerosol inhaler 2 inh inhalation Q4H PRN (Reason: shortness of breath or wheezing) Qty: 6.7 0RF insulin lispro [Humalog U-100 Insulin] 100 unit/mL solution 100 unit continuous subcutaneous infusion DAILY Qty: 90 2RF Rx Instructions: using insulin pump Total Daily Dose 100uints/day carvedilol 25 mg tablet 25 mg PO BID Qty: 180 1RF cetirizine [Zyrtec] 10 mg tablet 10 mg PO DAILY isosorbide mononitrate 60 mg tablet extended release 24 hr 60 mg PO DAILY venlafaxine 75 mg capsule,extended release 24hr 150 mg PO DAILY atorvastatin 40 mg tablet 40 mg PO DAILY Qty: 90 1RF Patient Comments: patient takes HS (DME) FreeStyle Mita 3 Sensor Device See Rx Instructions .Route Qty: 2 3RF Rx Instructions: change every 14 day alprazolam [Xanax] 0.25 mg tablet 0.25 mg PO DAILY PRN (Reason: Anxiety) Qty: 30 1RF pantoprazole 40 mg tablet,delayed release (DR/EC) 40 mg PO BID Qty: 180 1RF lisinopril 2.5 mg tablet 2.5 mg PO DAILY Qty: 90 1RF levothyroxine 50 mcg tablet 50 mcg PO DAILY Qty: 90 1RF (DME) FreeStyle Mita 3 Plus Sensor Device See Rx Instructions .Route Qty: 3 0RF Rx Instructions: change every 15 days amlodipine 10 mg tablet 10 mg PO DAILY Qty: 90 0RF Rx Instructions: please schedule appt pregabalin 75 mg capsule 75 mg PO BID Qty: 180 1RF Date of admission: 10/21/24 09:34 Primary Care Provider: Denisha Hansen I. Admitting Provider: Jorge Pina Attending physician on admission: Amee Koroma Condition: Improved Hospitalist MIPS Heart Failure (Exclusion) Patient has history of Heart Transplant or Left Ventricular Assistive Device?: No IF YES, STOP HERE Heart Failure (Qualifier) Patient has current or prior documentation of LVEF less than or equal to 40%, or mod/servere depressed LVSF?: No IF NO, STOP HERE
--- NOTE | 2024-10-24 11:37 | HOMEO2EVAL ---
Evaluation was performed at [facility] Home Oxygen Evaluation RC: Home Oxygen (O2) Evaluation Start: 10/24/24 10:52 Freq: ONCE Status: Active Protocol: RPE Activity Type Activity Date Activity User E-sign Co-sign Detail Recorded Client Recorded Date Recorded By Document 10/24/24 10:50 [email or web address] [email or web address] 10/24/24 11:36 DJO Document 10/24/24 10:55 [email or web address] 10/24/24 11:36 DJO Document 10/24/24 11:00 [email or web address] [email or web address] 10/24/24 11:36 DJO Document 10/24/24 11:05 [email or web address] [email or web address] 10/24/24 11:36 DJO Document 10/24/24 11:10 [email or web address] [email or web address] 10/24/24 11:36 DJO Document 10/24/24 11:15 [email or web address] [email or web address] 10/24/24 11:36 DJO Document 10/24/24 11:30 [email or web address] [email or web address] 10/24/24 11:36 DJO 10/24/24 10/24/24 10/24/24 10:50 10:55 11:00 Home O2 Evaluation [Oxygen] -Test Phase Resting Resting Resting -Oxygen Delivery Room Air Nasal Cannula Nasal Cannula -Oxygen Flow Rate (L/min) 1 2 [Pulse Oximetry] -Pulse Oximetry (90-100 %) 85 L 86 L 88 L [Pulse Rate] -Pulse Rate (60-100 beats/min) 74 71 69 [Evaluation] -Activity Tolerance [Charges] -Evaluation Charges O2 Evaluation by Pulmonary 10/24/24 10/24/24 10/24/24 11:05 11:10 11:15 Home O2 Evaluation [Oxygen] -Test Phase Resting Exercise Exercise -Oxygen Delivery Nasal Cannula Nasal Cannula Nasal Cannula -Oxygen Flow Rate (L/min) 3 3 4 [Pulse Oximetry] -Pulse Oximetry (90-100 %) 90 88 L 91 [Pulse Rate] -Pulse Rate (60-100 beats/min) 70 89 90 [Evaluation] -Activity Tolerance Good Good [Charges] -Evaluation Charges 10/24/24 11:30 Home O2 Evaluation [Oxygen] -Test Phase Resting -Oxygen Delivery Nasal Cannula -Oxygen Flow Rate (L/min) 3 [Pulse Oximetry] -Pulse Oximetry (90-100 %) 91 [Pulse Rate] -Pulse Rate (60-100 beats/min) 72 [Evaluation] -Activity Tolerance [Charges] -Evaluation Charges
[2024-10-24 12:40] LABS: Glucose Point of Care 237 mg/dl (65-105)
--- NOTE | 2024-10-24 16:41 | ECHO_ITS ---
Patient Info Name: Tank Kowalski Age: 49 years : 1975 Gender: Male Ht: 71 in Wt: 197 lbs BSA: 2.13 m2 HR: 69 bpm BP: 162 / 66 mmHg Heart Rhythm: Sinus Rhythm Technical Quality: Good Exam Date: 10/24/2024 12:45 PM Exam Location: Echo Lab Exam Room: [facility] Patient Status: Inpatient Admit Date: 10/21/2024 Staff Ordering Physician: Liz Gandhi APRN Sand Molder: Nicole Brito RDCS Attending Provider: Amee Koroma PA-C Referring Physician: Hiram LUA; Exam Type: CA echo doppler color flow Study Info Complete two-dimensional, color flow and Doppler transthoracic echocardiogram is performed. Summary 1. Complete two-dimensional, color flow and Doppler transthoracic echocardiogram is performed. 2. Left ventricular systolic function is normal, estimated at 55-60%. 3. There is moderately increased left ventricular wall thickness. 4. Left ventricular wall motion is normal. 5. Left ventricular chamber dimension is normal. 6. Right ventricular chamber dimension is normal. 7. Right ventricular systolic function is normal. 8. Left atrial chamber dimension is enlarged. 9. There is mild mitral valve regurgitation. 10. There is trace tricuspid valve regurgitation. 11. There is mild pulmonic regurgitation. Left Ventricle Left ventricular chamber dimension is normal. Left ventricular systolic function is normal, estimated at 55-60%. There is moderately increased left ventricular wall thickness. Left ventricular wall motion is normal. The left ventricular diastolic function is grade II diastolic dysfunction. Right Ventricle Right ventricular chamber dimension is normal. Right ventricular systolic function is normal. Left Atria Left atrial chamber dimension is enlarged. Right Atria Right atrial chamber dimension is normal. Aortic Valve The aortic valve is trileaflet. There is no aortic valve sclerosis. There is no aortic valve stenosis. There is no aortic valve regurgitation. Pulmonic Valve The pulmonic valve is normal. There is no pulmonic valve stenosis. There is mild pulmonic regurgitation. Mitral Valve The mitral valve has normal leaflets. There is no mitral valve stenosis. There is mild mitral valve regurgitation. Tricuspid Valve The tricuspid valve leaflets are normal. There is no significant tricuspid valve stenosis. There is trace tricuspid valve regurgitation. No pulmonary hypertension, estimated pulmonary arterial systolic pressure is 32 mmHg. Pericardium/Pleural The pericardium appears normal. There is no pericardial effusion. Inferior Vena Cava Dilated inferior vena cava with >50% collapse upon inspiration consistent with elevated right atrial pressure, 8 mmHg. Aorta The aortic root size at the sinus of Valsalva is normal. The prox ascending aorta size is normal. Left Ventricular Outflow Tract Name Value Normal LVOT 2D LVOT Diameter 2.2 cm LVOT Doppler LVOT Peak Gradient 6 mmHg LVOT Mean Gradient 4 mmHg LVOT VTI 29 cm LVOT VTI/AV VTI Ratio 1.1 LVOT Stroke Volume 112 ml LVOT CO 22.0 l/min LVOT CI 10.3 l/min/m2 Pulmonic Valve Name Value Normal PV Doppler PV Peak Gradient 6 mmHg PV Regurgitation Doppler UT Peak End Diastolic Velocity 131 cm/s Mitral Valve Name Value Normal MV Doppler MV Peak Gradient 6 mmHg MV Mean Gradient 2 mmHg MV Decel [place] 778 cm/s2 MV PHT 51 ms MV Area (PHT) 4.3 cm2 4.0-5.0 MV Area (Cont Eq VTI) 4.1 cm2 MV Regurgitation Doppler MR Peak Gradient 70 mmHg MV Diastolic Function MV E Peak Velocity 136 cm/s MV A Peak Velocity 110 cm/s MV E/A 1.2 MV Decel Time 175 ms MV Annular TDI MV E/e' (Septal) 23.4 <=8.0 MV E/e' (Lateral) 16.9 <=8.0 MV E/e' (Average) 20.2 Tricuspid Valve Name Value Normal TV Regurgitation Doppler TR Peak Velocity 244 cm/s TR Peak Gradient 24 mmHg Estimated PAP/RSVP RA Pressure 8 mmHg <=5 PA Systolic Pressure 32 mmHg <36 RV Systolic Pressure 32 mmHg <36 Aortic Valve Name Value Normal AV Doppler AV Peak Velocity 137 cm/s AV Peak Gradient 7 mmHg AV Mean Gradient 3 mmHg AV VTI 25 cm AV Area (Cont Eq VTI) 4.4 cm2 >=3.0 AV Area (Cont Eq Jp) 3.6 cm2 AV Regurgitation 2D LVOT Area 3.9 cm2 Ventricles Name Value Normal LV Dimensions 2D/MM IVS Diastolic Thickness (2D) 1.4 cm 0.6-1.0 LVID Diastole (2D) 5.1 cm 4.2-5.8 LVIW Diastolic Thickness (2D) 1.3 cm 0.6-1.0 LVID Systole (2D) 3.6 cm 2.5-4.0 LVOT Diameter 2.2 cm LV Mass (2D Cubed) 295.73 g 88.00-224.00 LV Mass Index (2D Cubed) 139 g/m2 49-115 Relative Wall Thickness (2D) 0.53 LV Fractional Shortening/Ejection Fraction 2D/MM LV Fractional Shortening (2D) 29 % 25-43 LV EF (2D Teichastrid) 56 % 52-72 LV Diastolic Volume (4C MOD) 147 ml LV EF (4C MOD) 67 % LV Diastolic Length (4C) 9.1 cm LV Systolic Length (4C) 7.0 cm LV Stroke Volume (4C MOD) 98 ml Atria Name Value Normal LA Dimensions LA Volume (4C A-L) 62 ml RA Dimensions RA Area (4C) 17.6 cm2 <=18.0 Report Signatures
--- OUTSIDE RECORDS SUMMARY | 2024-10-26 08:19 | XMS_ITS | Encounter Summary ---
Author Organization [facility] Address [facility]. [place], [place] [id number] [place] [id number] Care Team Providers Care Composition Professor Name Role Phone Joann Marquez [facility]- Unavailable [phone] Denisha Hansen Primary Care Provider [phone] Encounter Details Date Type Department Care Team (Late st Contact Info) Description 01/22/2024 Abstract [facility] [address] [place] [id number] Abstract, Doc [facility] Social History Tobacco Use Types Packs/Day Years Used Date Smoking Tobacco: Every Day Cigarettes 2 30 Smokeless Tobacco: Never Alcohol Use Standard Drinks/Week Comments Yes 10 (1 standard drink = 0.6 oz pu re alcohol) 4-6 weekly Sex and Gender Information Value Date Recorded Sex Assigned at Not on file Legal Sex Male 1:10 AM CDT Gender Identity Not on file Sexual Orientation Not on file 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 Not on file Not on file Not on file Not on file Not on file Not on file Not on file documented as of this encounter Plan of Treatment Not on file documented as of this encounter Procedures Procedure Name Priority Date/Time Associated Diagnosis Comments MAGNESIUM (OUTSIDE LAB) Routine 01/15/2024 TSH (OUTSIDE LAB) Routine 01/15/2024 THYROXINE, FREE (FT4) Routine 01/15/2024 CK (CPK) Routine 01/15/2024 documented in this encounter Results * CK (CPK) (01/15/2024) CPK 60 44 - 196 01/15/2024 us Default History Genericprovider LABORATORY Final Result * THYROXINE, FREE (FT4) (01/15/2024) Pathologist [facility] FREE T4 1.1 0.8 - 1.8 01/15/2024 us Default History Genericprovider LABORATORY Final Result * TSH (OUTSIDE LAB) (01/15/2024) Pathologist [facility] TSH 1.84 0.40 - 4.50 01/15/2024 us Default History Genericprovider LAB-OUTSIDE/ABST RACTED Final Result * MAGNESIUM (OUTSIDE LAB) (01/15/2024) Pathologist [facility] MAGNESIUM 1.7 1.5 - 2.5 01/15/2024 us Default History Genericprovider LAB-OUTSIDE/ABST RACTED Final Result documented in this encounter Visit Diagnoses Not on filedocumented in this encounter Care Teams Composition Professor Relationship Specialty Start Date End Date Denisha Hansen PA [facility] [place] [address] PCP - General PHYSICIAN PATIENT SUPPORT ASSISTANT 10/24/23 Joann Marquez, ANP- [address] [facility] [address] [place] [address] [employer] Super[employer] NURSE PRACTITIONER 02/28/17 documented as of this encounter
--- OUTSIDE RECORDS SUMMARY | 2024-10-26 08:19 | XMS_ITS | Encounter Summary ---
Author Organization [facility] Address [address] [place] [address]. 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 (CMS/HCC) Dyspnea on exertion Procedures NM EXER NUC STRESS TEST 1DAY Joann Marquez ANP-BC [address] [facility] [address] [place] [address] Phone: tel: fax: Referral ID Status Reason Start Date Expiration Date V isits Requested Visits Authorized [id number] Authorized 06/11/2024 06/11/2025 1 2 * Medication Prior Authorization - Closed Specialty Diagnoses / Procedures Referred By Cheyanne puentes Referred To Contact Joann Marquez ANP-BC [address] [facility] [address] [place] [address] Phone: tel: fax: Referral ID Status Reason Start Date Expiration Date Visits Re quested Visits Authorized [id number] Closed 1 1 Reason for Visit * Reason Comments Follow Up Encounter Details Date Type Department Care Team (Late st Contact Info) Description 06/11/2024 2:30 PM CDT Office Visit [facility] eld [address] [place] [id number] Joann Marquez ANP-BC [address] [facility] [address] [place] [address] Follow Up Social History Tobacco Use Types Packs/Day Years [...] 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 Not on file Not on file Not on file Not on file Not on file Not on file documented as of this encounter Last Filed Vital Signs Vital Sign Reading Time Taken Comments Blood Pressure 142/70 06/11/2024 2:18 PM CDT Pulse 75 06/11/2024 2:18 PM CDT Temperature - - Respiratory Rate 16 06/11/2024 2:18 PM CDT Oxygen Saturation 95% 06/11/2024 2:18 PM CDT Inhaled Oxygen Concentration - - Weight 89.9 kg (198 lb 3.2 oz) 06/11/2024 2:18 P M CDT Height 180.3 cm (5' 11 ) 06/11/2024 2:18 PM CDT Body Mass Index 27.64 06/11/2024 2:18 PM CDT documented in this encounter Patient Instructions * Patient Instructions* MARIO Mendenhall - 06/11/2024 2:30 PM CDT For stress test-- Hold carvedilol the night before and am of test Continue lisinopril, isosorbide and amlodipine as usual NO CAFFEINE for 12 hours prior to test documented in this encounter Progress Notes * Joann Marquez, AURELIANO-ERICA - 06/11/2024 2:30 PM CDT From: Joann Marquez FRAME ALIGNER Collaborating Physician: Abhinav Gould MD Dear Dr. LAUREL HANSEN, PA: Rubia Kowalski was seen on 06/11/2024 at the [facility]. Orders Placed This Encounter LIPID PANEL LIPOPROTEIN, LDL CHOL, DIRECT NM EXER NUC STRESS TEST 1DAY evolocumab (REPATHA SURECLICK) 140 MG/ML injection (PEN) ELECTROCARDIOGRAM (NON MIDMARK ACQUIRED) Medications: Current Outpatient Medications: evolocumab (REPATHA SURECLICK) 140 MG/ML injection (PEN), Inject 1 mL (140 mg total) into the skin every 14 (fourteen) days., Disp: 2 Pen, Rfl: 5 ALPRAZolam 0.5 MG tablet, Take 0.5 mg by mouth nightly as needed. at bedtime., Disp: , Rfl: amlodipine (NORVASC) 10 MG tablet, Take 10 mg by mouth daily. , Disp: , Rfl: atorvastatin (LIPITOR) 80 MG tablet, Take 1 tablet (80 mg total) by mouth every evening., Disp: 90 tablet, Rfl: 0 carvedilol (COREG) 25 MG tablet, Take 1 tablet (25 mg total) by mouth 2 (two) times daily., Disp: 180 tablet, Rfl: 1 clopidogrel (PLAVIX) 75 MG tablet, Take 1 tablet (75 mg total) by mouth daily., Disp: 90 tablet, Rfl: 1 icosapent ethyl (VASCEPA) 1 G capsule, Take 2 capsules (2 g total) by mouth 2 (two) times daily. Take with food., Disp: 120 capsule, Rfl: 12 insulin lispro (HUMALOG) 100 UNIT/ML injection (VIAL), Inject into the skin see administration instructions. , Disp: , Rfl: isosorbide mononitrate ER (IMDUR) 60 MG 24 hr tablet, Take 1 tablet (60 mg total) by mouth every morning., Disp: 90 tablet, Rfl: 1 nitroglycerin (NITROSTAT) 0.4 MG SL tablet, Place 1 tablet (0.4 mg total) under the tongue every 5 (five) minutes as needed for Chest Pain. Maximum of 3 doses., Disp: 30 tablet, Rfl: 1 pantoprazole EC 40 MG tablet, Take 40 mg by mouth 2 (two) times daily., Disp: , Rfl: venlafaxine XR 75 MG 24 hr capsule, Take 150 mg by mouth daily., Disp: , Rfl: Review of patient's allergies indicates: Allergen Reactions Guaifenesin Swelling Simvastatin Myalgias Zetia [Ezetimibe] GI Upset Past Medical History: Diagnosis Date Anxiety CAD (coronary artery disease) Cancer ([facility]) Melanoma Chronic kidney disease CKD (chronic kidney disease) Colitis CVA (cerebral vascular accident) ([facility]) 2010 Diabetes ([facility]) Diabetic retinopathy ([facility]) GERD (gastroesophageal reflux disease) Glaucoma History of coronary artery stent placement 2013 Hyperlipidemia Hypertension Lumbago Myocardial infarction ([facility]) Personal history of MRSA (methicillin resistant Staphylococcus aureus) MRSA abscess on the face(negative cultures in 2013) Past Surgical History: Procedure Laterality Date FRACTURE SURGERY HEART CATH 02/20/2014 Cardiac Cath HEART CATH 05/22/2018 HEART CATH 2015 SKIN BIOPSY TONSILLECTOMY XA CORONARY INTERVENTION 02/24/2014 MARTHA to the proximal LAD XA C POSS 01/09/2022 Social History Tobacco Use Smoking status: Every Day Current packs/day: 2.00 Average packs/day: 2.0 packs/day for 30.0 years (60.0 ttl pk-yrs) Types: Cigarettes Smokeless tobacco: Never Substance Use Topics Alcohol use: Yes Alcohol/week: 10.0 standard drinks of alcohol Types: 6 Cans of beer per week Comment: 4-6 weekly Drug use: No Family History Problem Relation Name Age of Onset Stent Cardiac Mother Ruby 45 stents Heart Attack Mother Ruby Diabetes Mother Ruby Heart Disease Mother Ruby Hypertension Mother Ruby Valve Disease Sister Valve problem Coronary artery disease Other Family Status Relation Name Status Mother Ruby Alive Sister Alive Other Other Family history is positive for: Father Alive Brother Alive No partnership data on file Review of Systems Constitutional: Positive for fatigue. Negative for recent unintentional weight gain and recent unintentional weight loss. HENT: Negative for new or significant hearing loss. Eyes: Negative for blurred vision and double vision. Respiratory: Positive for shortness of breath. Negative for cough and snoring. Cardiovascular: See HPI. Gastrointestinal: Negative for blood in stool and melena. Genitourinary: Negative for dysuria. Musculoskeletal: Negative for myalgias and new or worsening joint stiffness/pain. Skin: Negative for rash. Neurological: Negative for tingling/numbness and focal weakness. Endo/Heme/Allergies: Negative for new or significant bruising/bleeding and polydipsia. Psychiatric/Behavioral: Negative for depression and new or significant memory loss. Filed Vitals: 06/11/24 1418 BP: (!) 142/70 Pulse: 75 Resp: 16 SpO2: 95% Weight: 89.9 kg (198 lb 3.2 oz) Height: 1.803 m (5' 11 ) Cardiac Exam Rate/Rhythm: Normal rate and regular rhythm. PMI: PMI is not displaced. Pulses: Intact distal pulses. Carotid pulses are 2+ on the right side and 2+ on the left side. Dorsalis pedis pulses are 2+ on the right side and 2+ on the left side. Heart Sounds: Normal heart sounds. Normal S1 sounds. Normal S2 sounds. Murmurs: No murmur present Negative for edema. Comments: Physical Exam Constitutional: No distress. HENT: . Eyes: Conjunctivae normal. Neck: Neck supple. No JVD. Abdomen: Abdomen soft. Bowel sounds normal. No tenderness. Abdominal aorta not palpably enlarged. No abdominal bruit present. Pulmonary: Effort normal. Breath sounds normal. Skin: Dry. Warm. No pallor. No cyanosis. Musculoskeletal: No kyphosis. Neurological: Alert. Oriented x 3. Appropriate mood and affect. Comments: Diagnoses/Impression: 1. 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 Mixed hyperlipidemia LIPID PANEL LIPOPROTEIN, LDL CHOL, DIRECT 3. Dyspnea on exertion NM EXER NUC STRESS TEST 1DAY 4. Primary hypertension 5. Tobacco use PCP: KAMI REILLY * MARIO Mendenhall - 06/11/2024 12:00 AM CDT Patient Name: RUBIA KOWALSKI Date of : 1975 HISTORY OF PRESENT ILLNESS: Mr. Kowalski returns to clinic today for followup. He has a history of coronary artery disease with previous stenting, hypertension, diabetes type 1, dyslipidemia, remote stroke and ongoing tobacco use. On most recent cardiac catheterization in [address] Hollis, he had a patent stent in the LAD. There was no other severe obstructive coronary artery disease. He has had tendency for chronic angina which has been managed with medical therapy. Mr. Kowalski describes he has some atypical chest pain in the right chest. This is not something he isbringing on consistently with activity. He said with exertion, however, he is getting some tightness in his chest. Sometimes he has to stop the activity for it to relieve. He has some chronic exertional dyspnea but does not feel like it has changed recently. It seems variable. He is continuing to smoke. He denies orthopnea, PND, pita syncope, edema. He said sometimes he can get some lightheadedness. He has noted sometimes at night palpitations. PLAN: Mr. Kowalski describes some atypical chest pain but also experiencing some exertional chest tightness and dyspnea. EKG today demonstrates sinus rhythm with possible anterior septal MS with no significant change compared to 11/06/2023. His blood pressure is mildly elevated. With further discussion of symptoms, we decided to proceed with an exercise nuclear stress test to exclude new ischemia. We discussed his last lipid profile. His LDL is above goal at 118. I recommended adding Repatha 140mg every 14 days in combination with his Ezetimibe and full dose Atorvastatin. Repeat lipid profilewith direct LDL in approximately 6 weeks after starting Repatha. I recommended complete cessation of tobacco. He understands the risks of continuing tobacco and potential benefit of complete smoking cessation. We reviewed in detail recommendations for heart healthy lifestyle. Further recommendations pending results of his stress test. I appreciated the opportunity to participate in the care of Rubia Kowalski. 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 (CMS/HCC) Mixed hyperlipidemia Expected: 09/11/2024, Expires: 12/12/2024 NM EXER NUC STRESS TEST 1DAY NUC MED Routine 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 [facility] [place] ?[address] [place], [place] ??[address] ? Test Date: ?2024-06-11 Pat Name: ? RUBIA KOWALSKI ?Department: ?? 105 ? Room: ? Gender: ? Male ? Honey Processor: ?? : ?1975 ? Requested By: ABHINAV GOULD Order Number: [id number] ?Reading : ?? Abhinav Gould ? Measurements Intervals ?[place] ? Rate: ? 63 ? P: ?34 OK: ? 141 ?QRS: ?61 QRSD: ? 94 ? T: ?45 QT: ? 410 ? QTc: ?420 ? Interpretive Statements SINUS RHYTHM Possible MS, AU Procedure Note Abhinav Gould MD - 06/12/2024 [facility], [facility] [address] [place] [address] Test Date: 2024-06-11 Pat Name: RUBIA KOWALSKI Department: 105 Room: Gender: Male Honey Processor: : 1975 Requested By: ABHINAV GOULD Order Number: [id number] Reading MD: Abhinav Gould Measurements Intervals [place] Rate: 63 P: 34 OK: 141 QRS: 61 QRSD: 94 T: 45 QT: 410 QTc: 420 Interpretive Statements SINUS RHYTHM Possible MS, AU us Abhinav Gould MD PROCEDURES-ORDERABLE NO CHARGE F inal Result [facility] documented in this encounter Visit Diagnoses Diagnosis 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
--- OUTSIDE RECORDS SUMMARY | 2024-10-26 08:19 | XMS_ITS | Encounter Summary ---
Author Organization [facility] Address [facility] [facility] [place] [address] [place] [address] Care Team Providers Care Unindentured Apprentice Name Role Phone Joann Marquez-ERICA Unavailable [phone] Denisha Hansen Primary Care Provider [phone] Reason for Visit * Reason Onset Date Comments Lab Results 01/28/2024 Encounter Details Date Type Department Care Team (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 * Shiloh Marshall - 01/28/2024 10:49 AM CDT Labs received from [employer], sent to be abstracted. documented in this encounter Plan of Treatment Not on file documented as of this encounter Visit Diagnoses Not on filedocumented in this encounter Care Teams Unindentured Apprentice Relationship Specialty Start Date End Date Denisha Hansen PA [address] [place] [address] PCP - General PHYSICIAN EPOXY FABRICATION SUPERVISOR 10/24/23 Joann Marquez, ANP- [address] [facility] [address] [place] [address] Protection Steamer Blocker NURSE PRACTITIONER 02/28/17 documented as of this encounter
--- OUTSIDE RECORDS SUMMARY | 2024-10-26 08:19 | XMS_ITS | Encounter Summary ---
Author Organization [facility] Address [address] [place] [address]. 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 AMER. 21 <=90 EGFR AFR. AMER. 21 <=90 CALCIUM S/P/B 8.6 GLUCOSE 161 mg/dL ANION GAP 7 BUN CREATININE RATIO na 12/31/2023 us Default History Genericprovider LAB-OUTSIDE/ABST RACTED Final Result documented in this encounter Visit Diagnoses Not on filedocumented in this encounter Care Teams Business Mail Entry Clerk Relationship Specialty Start Date End Date Denisha Hansen PA [facility] [place] [address] PCP - General PHYSICIAN CONSTRUCTION ESTIMATOR 10/24/23 Joann Marquez, ANP- [address] [facility] [address] [place] [address] [place] Double [place] Cutter NURSE PRACTITIONER 02/28/17 documented as of this encounter
--- OUTSIDE RECORDS SUMMARY | 2024-10-26 08:19 | XMS_ITS | Encounter Summary ---
Author Organization [facility] Address [address] [place] [address]. [place], [place] [address] [place] [address] Care Team Providers Care Cattle Sticker Name Role Phone Joann Marquez [facility]- Unavailable Deinsha Hansen Primary Care Provider [phone] Reason for Referral * Imaging (Routine) - Closed Specialty Diagnoses / Procedures Referred By Cheyanne puentes Referred To Contact RADIOLOGY Diagnoses Hypertensive chronic kidney disease with stage 1 through stage 4 chronic kidney disease, or unspecified chronic kidney disease Type 1 diabetes mellitus with diabetic chronic kidney disease (CMS/HCC HHS/HCC) Chronic kidney disease, stage 4 (severe) (CMS/HCC HHS/HCC) Procedures US [employer] L[employer] Yasmany Simmons MD [address] [place] [address] Phone: tel: fax: Referral ID Status Reason Start Date Expiration Date Visits Re quested Visits Authorized [id number] Closed 07/18/2024 07/18/2025 1 1 Reason for Visit * Imaging (Routine) - Closed Specialty Diagnoses / Procedures Referred By Cheyanne puentes Referred To Contact RADIOLOGY Diagnoses Hypertensive chronic kidney disease with stage 1 through stage 4 chronic kidney disease, or unspecified chronic kidney disease Type 1 diabetes mellitus with diabetic chronic kidney disease (CMS/HCC HHS/HCC) Chronic kidney disease, stage 4 (severe) (CMS/HCC HHS/HCC) Procedures US RETROPERITONEAL LTD Yasmany Simmons MD [address] [place] [address] Phone: tel: fax: Referral ID Status Reason Start Date Expiration Date Visits Re quested Visits Authorized [id number] Closed 07/18/2024 07/18/2025 1 1 Encounter Details Date Type Department Care Team (Latest Contact Info) Description 07/24/2024 1:00 PM CDT - 07/24/2024 11:59 PM CDT Hospital Encounter [facility] Ultrasound [address] [place] [address] Yasmany Simmons MD [address] [place] [address] [id number] Discharge Disposition: Home or Self Care (Routine Discharge) Social History Tobacco Use Types Packs/Day Years [...] 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 at bedtime. 11/02/2021 amlodipine (NORVASC) 10 MG tablet Take 10 mg by mouth daily. 09/24/2015 atorvastatin (LIPITOR) 80 MG tablet Take 1 tablet (80 mg total) by mouth every evening. 90 tablet 11/06/2023 carvedilol (COREG) 25 MG tablet Take 1 tablet (25 mg total) by mouth 2 (two) times daily. 180 tablet 1 06/04/2024 clopidogrel (PLAVIX) 75 MG tablet Take 1 tablet (75 mg total) by mouth daily. 90 tablet 1 06/04/2024 evolocumab (REPATHA SURECLICK) 140 MG/ML injection (PEN) Inject 1 mL (140 mg total) into the skin every 14 (fourteen) days. 2 Pen 5 06/11/2024 icosapent ethyl (VASCEPA) 1 G capsule Take 2 capsules (2 g total) by mouth 2 (two) times daily. Take with food. 120 capsule 12 05/08/2022 insulin lispro (HUMALOG) 100 UNIT/ML injection (VIAL) Inject into the skin see administration instructions. 02/11/2014 isosorbide mononitrate ER (IMDUR) 60 MG 24 hr tablet Take 1 tablet (60 mg total) by mouth every morning. 90 tablet 1 06/04/2024 nitroglycerin (NITROSTAT) 0.[address] 1 tablet (0.4 mg total) under the tongue every 5 (five) minutes as needed for Chest Pain. Maximum of 3 doses. 30 tablet 1 06/04/2024 pantoprazole EC 40 MG tablet Take 40 mg by mouth 2 (two) times daily. 11/24/2021 venlafaxine XR 75 MG 24 hr capsule Take 150 mg by mouth daily. 12/07/2021 documented as of this encounter Plan of Treatment Not on file documented as of this encounter Procedures Procedure Name Priority Date/Time Associated Diagnosis Comments US RETROPERITONEAL LTD Routine 1:39 PM CDT Hypertensive chronic kidney disease with stage 1 through stage 4 chronic kidney disease, or unspecified chronic kidney disease Type 1 diabetes mellitus with diabetic chronic kidney disease (CMS/HCC HHS/HCC) Chronic kidney disease, stage 4 (severe) (CMS/HCC HHS/HCC) documented in this encounter Results * US [employer] (07/24/2024 1:39 PM CDT) Anatomical Region Laterality Modality Renal Ultrasound 07/24/2024 4:00 PM CDT Impressions 07/24/2024 4:03 PM CDT IMPRESSION: 1. ??No evidence of hydronephrosis or focal renal mass. Renal cortical volume is within normal limits.. 2. ??Grossly similar overall appearance since 02/14/2019 ultrasound. No gross abnormality of the kidneys on noncontrast CT of 07/20/2017 Ordered By: YASMANY SIMMONS Interpreted By: Aguilar Luther, 07/24/2024 4:00 PM Narrative 07/24/2024 4:03 PM CDT [address] [place] [address] IMAGING STUDIES: US RETROPERITONEAL LTD DATE: 07/24/2024 1:05 PM CLINICAL HISTORY: type 1 diabetes mellitus with diabetic chronic kidney disease ?? . ??GFR 18, according to patient FINDINGS: RIGHT KIDNEY MEASURES 11.6 x 4.9 x 5.0 cm. LEFT KIDNEY MEASURES 12.2 x 5.7 x 5.6 cm. No hydronephrosis or focal renal mass. Renal cortical volume is within normal limits. Low volume urinary bladder without gross focal mass. Bilateral ureteral jets not visualized during the course of this exam. Procedure Note Lewis Luther MD - 07/24/2024 [place] [id number] [place] [address] IMAGING STUDIES: US RETROPERITONEAL LTD DATE: 07/24/2024 1:05 PM CLINICAL HISTORY: type 1 diabetes mellitus with diabetic chronic kidneydisease . GFR 18, according to patient FINDINGS: RIGHT KIDNEY MEASURES 11.6 x 4.9 x 5.0 cm. LEFT KIDNEY MEASURES 12.2 x 5.7 x 5.6 cm. No hydronephrosis or focal renal mass. Renal cortical volume is withinnormal limits. Low volume urinary bladder without gross focal mass. Bilateral ureteraljets not visualized during the course of this exam. IMPRESSION: 1. No evidence of hydronephrosis or focal renal mass. Renal corticalvolume is within normal limits.. 2. Grossly similar overall appearance since 02/14/2019 ultrasound. Nogross abnormality of the kidneys on noncontrast CT of 07/20/2017 Ordered By: YASMANY SIMMONS Interpreted By: Aguilar Luther, 07/24/2024 4:00 PM Yasmany Simmons MD ULTRASOUND Final Result documented in this encounter Visit Diagnoses Diagnosis Hypertensive chronic kidney disease with stage 1 through stage 4 chronic kidney disease, or unspecified chronic kidney disease Type 1 diabetes mellitus with diabetic chronic kidney disease ([facility] HHS/HCC) Type I (juvenile type) diabetes mellitus with renal manifestations, not stated as uncontrolled Chronic kidney disease, stage 4 (severe) ([facility]) documented in this encounter Care Teams Cattle Sticker Relationship Specialty Start Date End Date Denisha Hansen PA [address] [place] [address] PCP - General PHYSICIAN HAT BAND ATTACHER 10/24/23 Joann Marquez, ANP- [address] [facility] [address] [place] [id number] [employer] English Teacher NURSE PRACTITIONER 02/28/17 documented as of this encounter
--- OUTSIDE RECORDS SUMMARY | 2024-10-26 08:19 | XMS_ITS | Encounter Summary ---
Author Organization [facility] Address [facility] [facility] [place] [address] [place] [address] Care Team Providers Care Assembler Trim Name Role Phone Joann Marquez-BC Unavailable Denisha Hansen Primary Care Provider [phone] Reason for Visit * Reason Onset Date Comments Appointment Reminder 05/22/2024 Encounter Details Date Type Department Care Team ([facility] st Contact Info) Description 05/22/2024 [facility] [address] [place] [address] Joann Marquez, AURELIANO-BC [address] [facility] [address] [place] [address] Appointment Reminder Social History Tobacco Use Types Packs/Day Years [...] 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 documented in this encounter Plan of Treatment Not on file documented as of this encounter Visit Diagnoses Not on filedocumented in this encounter Care Teams Assembler Trim Relationship Specialty Start Date End Date Denisha Hansen PA [address] [place] [address] PCP - General PHYSICIAN SHEAR SCRAPMAN 10/24/23 Joann Marquez, ANP- [address] [facility] [address] [place] [address] [employer] Commercial Roofing Estimator NURSE PRACTITIONER 02/28/17 documented as of this encounter
--- OUTSIDE RECORDS SUMMARY | 2024-10-26 08:19 | XMS_ITS | Encounter Summary ---
Author Organization [facility] Address [address] [place] [address]. [place] [address] [place] [address] Care Team Providers Care Court Worker Name Role Phone Ruthy Norris Unavailable [phone] Denisha Hansen Primary Care Provider [phone] Reason for Visit * Reason Onset Date Comments Refill Request 06/04/2024 Appointment Request 06/04/2024 Reschedule 06/04/2024 Encounter Details Date Type Department Care Team ([facility] st Contact Info) Description 06/04/2024 Telephone [facility] [address] [place] [address] Ruthy Norris ANP-BC [address] [facility] [address] [place] [address] Refill Request; Appointment Request; Reschedule Social History Tobacco Use Types Packs/Day Years [...] 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 * Shiloh Marshall - 06/04/2024 8:31 AM CDT ;Pt calling to get a refill on his Clopidigrel, Carvedilol, and Nitro. Pt states that he is out of refills on all of them and will be out on Sunday. I informed pt I would get this message to the nurses. Pt v/u and thanked me. PT also stated that he needed to reschedule his missed appointment from 05/23/2024. Pt is now scheduled on 06/11/2024 at 2:30 with Ruthy Norris at [facility]. PT v/u and thanked mefor my help. documented in this encounter Plan of Treatment Not on file documented as of this encounter Visit Diagnoses Not on filedocumented in this encounter Care Teams Court Worker Relationship Specialty Start Date End Date Denisha Hansen PA [address] [place] [address] PCP - General PHYSICIAN SWAHILI TEACHER 10/24/23 Ruthy Norris ANP-BC [address] [place] [address] [address] [place] [address] Orion Finisher Map And Chart NURSE PRACTITIONER 02/28/17 documented as of this encounter
--- OUTSIDE RECORDS SUMMARY | 2024-10-26 08:19 | XMS_ITS | Clinical Summary ---
Author Organization [facility] Address [address] [place] [place] [address]. [place], [place] [address] [place] [address] Care Team Providers Care Crumb Packer Name Role Phone Jimmy Joann Wagner [facility]- Unavailable [phone] Denisha Hansen Primary Care Provider [phone] Allergies Active Allergy Reactions Criticality Noted Date Comments Guaifenesin Swelling 03/31/2016 Simvastatin Myalgias 03/31/2016 Ezetimibe GI Upset 06/11/2024 Medications amlodipine (NORVASC) 10 MG tablet Take 10 mg by mouth daily. 09/24/20 15 Active insulin lispro (HUMALOG) 100 UNIT/ML injection (VIAL) Inject into the skin see administration instructions. 02/12/20 14 Active venlafaxine XR 75 MG 24 hr capsule Take 150 mg by mouth daily. 12/07/19 22 Active pantoprazole EC 40 MG tablet Take 40 mg by mouth 2 (two) times daily. 11/24/19 22 Active ALPRAZolam 0.5 MG tablet Take 0.5 mg by mouth nightly as needed. at bedtime. 11/02/19 22 Active icosapent ethyl (VASCEPA) 1 G capsule Take 2 capsules (2 g total) by mouth 2 (two) times daily. Take with food. 120 capsule 12 05/08/20 22 Active atorvastatin (LIPITOR) 80 MG tablet Take 1 tablet (80 mg total) by mouth every evening. 90 tablet 11/06/19 24 Active carvedilol (COREG) 25 MG tablet Take 1 tablet (25 mg total) by mouth 2 (two) times daily. 180 tablet 1 06/04/20 24 Active clopidogrel (PLAVIX) 75 MG tablet Take 1 tablet (75 mg total) by mouth daily. 90 tablet 1 06/04/20 24 Active isosorbide mononitrate ER (IMDUR) 60 MG 24 hr tablet Take 1 tablet (60 mg total) by mouth every morning. 90 tablet 1 06/04/20 24 Active nitroglycerin (NITROSTAT) 0.[address] 1 tablet (0.4 mg total) under the tongue every 5 (five) minutes as needed for Chest Pain. Maximum of 3 doses. 30 tablet 1 06/04/20 24 Active evolocumab (REPATHA SURECLICK) 140 MG/ML injection (PEN) Inject 1 mL (140 mg total) into the skin every 14 (fourteen) days. 2 Pen 5 06/11/20 24 Active Active Problems Problem Noted Date Diagnosed Date Tobacco use 12/24/2019 Chest pain 05/21/2018 CVA (cerebral vascular accident) ([facility] HHS/HC C) 10/22/2009 CAD (coronary artery disease) Diabetic retinopathy ([facility]) Hyperlipidemia Hypertension Family History Medical History Relation Comments Diabetes Mother Heart Attack Mother Heart Disease Mother Hypertension Mother Stent Cardiac Mother stents Coronary artery disease Other Valve Disease Sister Valve problem Relation Status Comments Brother Alive Father Alive Mother Alive Other Other Family history i s positive for: Sister Alive Social History Tobacco Use Types Packs/Day Years [...] 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 Not on file Not on file Not on file Not on file Not on file Not on file Last Filed Vital Signs Vital Sign Reading Time Taken Comments Blood Pressure 142/70 06/11/2024 2:18 PM CDT Pulse 75 06/11/2024 2:18 PM CDT Temperature 35.6 ??C (96.1 ??F) 01/09/2022 7:24 AM CD T Respiratory Rate 16 06/11/2024 2:18 PM CDT Oxygen Saturation 95% 06/11/2024 2:18 PM CDT Inhaled Oxygen Concentration - - Weight 89.9 kg (198 lb 3.2 oz) 06/11/2024 2:18 P M CDT Height 180.3 cm (5' 11 ) 06/11/2024 2:18 PM CDT Body Mass Index 27.64 06/11/2024 2:18 PM CDT Plan of Treatment Health Maintenance Due Date Last Done Comments Colorectal Cancer Screening Colonoscopy (10 Years) 1973 Kidney Health Evaluation 1973 Annual Physical 1976 Pneumococcal Vaccine: Pediatrics (0 to 5 Years) and At-Risk Patients (6 to 64 Years) (1 of 2 - PCV) 1979 Diabetes: Retinopathy Eye Exam 1991 Hepatitis C 1991 DTaP, Tdap and Td Vaccines (1 - Tdap) 1992 Hepatitis B Vaccines (1 of 3 - 19+ 3-dose series) 1992 Zoster Vaccines (1 of 2) 2023 Hemoglobin A1C 10/20/2023 04/20/2023, 01/21, 05/22/2018 COVID-19 Vaccine ( - season) 2024 Influenza Adult (#1) 2024 10/22/2017 Lung Cancer Screening 12/18/2024 12/18/2023, 022 Lipid Panel 01/14/2025 01/15/2024, 07/22, 04/26/2022, Additional history exists Meningococcal Vaccine Aged Out No nancy deisy eligible based on patient's age to complete this topic RSV Immunizations Under 20 Months Aged Out No longer eligible based on patient's age to complete this topic Procedures Procedure Name Priority Date/Time Associated Diagnosis Comments LIPID PANEL Routine 01/15/2024 Coronary artery disease of [place] artery of [place] heart with stable angina pectoris (CMS/HCC) Mixed hyperlipidemia Primary hypertension CT CHEST WO CON Routine 12/18/2023 1:32 PM SHANK FAKER Dyspnea, unspecified Other abnormalities of breathing Chronic obstructive pulmonary disease, unspecified (CMS/HCC HHS/HCC) HEMOGLOBIN, GLYCOSYLATED Routine 04/20/2023 from Last 3 Months or Most Recently Relevant to Health Maintenance Results * (ABNORMAL) LIPID PANEL (01/15/2024) CHOLESTEROL 195 <200 HDL 39 >or =40 TRIGLYCERIDES 263 <150 NON HDL CHOLESTEROL 156 <130 CHOL/HDL RATIO 5.0 <5.0 LDL (CALCULATED) 118 <100 01/15/2024 Joann Bernard Marquez ANP- LABORATORY Final Re sult * CT CHEST WO CON (12/18/2023 1:32 PM SHANK FAKER) Anatomical Region Laterality Modality Chest Computed Tomogra phy 12/19/2023 5:48 AM SHANK FAKER Impressions 12/19/2023 5:56 AM SHANK FAKER IMPRESSION: 1. ??No evidence of infiltrate or effusion.. ??Mild emphysematous change. 2. ??No pathologic pulmonary nodules. ??Stable nonpathologic sized mediastinal lymph nodes.. 3. ??Advanced coronary artery calcifications with stents. Referred By: DENISHA HANSEN Interpreted By: Lewis Luther MD, 12/19/2023 5:48 AM Narrative 12/19/2023 5:56 AM SHANK FAKER EXAMINATION: CT CHEST WITHOUT CONTRAST EXAM DATE/TIME: 12/18/2023 1:31 PM REASON FOR EXAM: ??Dyspnea ?? COPD. ??Recurrent pneumonia. ??Hypertension. ??Coronary artery disease. ??Coronary artery stent. COMPARISON: 01/20/2022 TECHNIQUE: Computed tomography was performed of the chest without intravenous contrast. A dose lowering technique was used for this procedure, which may include, but is not limited to, dose reduction technique, automated exposure control, iterative reconstruction, ALARA (As Low As Reasonably Achievable), or Image Gently techniques. FINDINGS: On lung windows, no suspicious pulmonary lesion, pneumothorax, or pleural effusion. ??Minor minimal scattered scar formation. On soft tissue windows, no axillary or supraclavicular lymphadenopathy. On mediastinal windows, no evidence of hilar or mediastinal lymphadenopathy. Heart size normal. No pericardial effusion. ??Stable nonpathologic sized mediastinal lymph nodes. ??Mild gynecomastia. Advanced coronary artery calcifications with stents. ??Mild mucosal thickening of the esophagus may be due to reflux. Limited evaluation of the upper abdomen demonstrates no acute abnormality. On bone windows, no suspicious skeletal lesion or acute compression fracture deformity.. ??Stable appearance of benign intramuscular lipoma overlying the posterior lateral right mid hemithorax. Procedure Note Lewis Luther MD - 12/19/2023 EXAMINATION: CT CHEST WITHOUT CONTRAST EXAM DATE/TIME: 12/18/2023 1:31 PM REASON FOR EXAM: Dyspnea COPD. Recurrent pneumonia. Hypertension. Coronary artery disease.Coronary artery stent. COMPARISON: 01/20/2022 TECHNIQUE: Computed tomography was performed of the chest withoutintravenous contrast. A dose lowering technique was used for this procedure, which may include,but is not limited to, dose reduction technique, automated exposurecontrol, iterative reconstruction, ALARA (As Low As ReasonablyAchievable), or Image Gently techniques. FINDINGS: On lung windows, no suspicious pulmonary lesion, pneumothorax, or pleuraleffusion. Minor minimal scattered scar formation. On soft tissue windows, no axillary or supraclavicular lymphadenopathy. On mediastinal windows, no evidence of hilar or mediastinallymphadenopathy. Heart size normal. No pericardial effusion. Stablenonpathologic sized mediastinal lymph nodes. Mild gynecomastia. Advanced coronary artery calcifications with stents. Mild mucosalthickening of the esophagus may be due to reflux. Limited evaluation of the upper abdomen demonstrates no acuteabnormality. On bone windows, no suspicious skeletal lesion or acute compressionfracture deformity.. Stable appearance of benign intramuscular lipomaoverlying the posterior lateral right mid hemithorax. IMPRESSION: 1. No evidence of infiltrate or effusion.. Mild emphysematous change. 2. No pathologic pulmonary nodules. Stable nonpathologic sizedmediastinal lymph nodes.. 3. Advanced coronary artery calcifications with stents. Referred By: DENISHA HANSEN Interpreted By: Lewis Luther MD, 12/19/2023 5:[address] Final Result * (ABNORMAL) HEMOGLOBIN, GLYCOSYLATED (04/20/2023) HGB A1C 8.3(A) <=5.7 % Narrative Resulting Agency Comment Dennis Doran MD LABORATORY Final Result from Last 3 Months or Most Recently Relevant to Health Maintenance Insurance [facility] Advance Directives * Full Code (Latest Code Status on File) Date Activated Date Inactivated Comments 05/21/2018 4:55 PM 05/22/2018 6:02 PM Care Teams Crumb Packer Relationship Specialty Start Date End Date Denisha Hansen PA [address] [place] [address] PCP - General PHYSICIAN DISPATCH OFFICER 10/24/23 Joann Marquez, [facility]- [address] [facility] [address] [place] [address] Lewis Student Success Coach NURSE PRACTITIONER 02/28/17
--- OUTSIDE RECORDS SUMMARY | 2024-10-26 08:19 | XMS_ITS | Encounter Summary ---
Author Organization [facility] Address [facility]. 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 Not on file Not on file Not on file Not on file Not on file Not on file documented as of this encounter Plan of Treatment Not on file documented as of this encounter Visit Diagnoses Not on filedocumented in this encounter Care Teams Notching Press Operator Relationship Specialty [place] [address] [place] [address] PCP - General PHYSICIAN POLISHER IMPLANT 10/24/23 Joann Marquez ANP-BC [address] [facility] [address] [place] [address] [employer] Engineering Faculty Member NURSE PRACTITIONER 02/28/17 documented as of this encounter
--- OUTSIDE RECORDS SUMMARY | 2024-10-26 08:19 | XMS_ITS | Encounter Summary ---
Author Organization [facility] Address [address] [place] [address]. 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 Not on file Not on file Not on file Not on file Not on file Not on file documented as of this encounter Plan of Treatment Not on file documented as of this encounter Procedures Procedure Name Priority Date/Time Associated Diagnosis Comments LIPID PANEL Routine 01/15/2024 Coronary artery disease of cheesh-na artery of cheesh-na heart with stable angina pectoris (CMS/HCC) Mixed hyperlipidemia Primary hypertension CBC W/DIFF AUTOMATED Routine 01/15/2024 Coronary artery disease of cheesh-na artery of cheesh-na heart with stable angina pectoris (CMS/HCC) Mixed hyperlipidemia Primary hypertension documented in this encounter Results * CBC W/DIFF AUTOMATED (01/15/2024) WBC 6.9 3.8 - 10.8 RBC 3.94 4.20 - 5.80 HGB 12.1 13.2 - 17.1 HCT 37.2 38.5 - 50.0 MCV 94.4 80 - 100 MCH 30.7 27 - 33 MCHC 32.5 32 - 36 RDW 13.5 11 - 15 PLT 165 140 - 400 MPV 12.0 7.5 - 12.5 NEUTROPHILS % 68.4 LYMPHOCYTES % 22.1 MONOCYTES % 4.5 EOSINOPHILS % 3.8 BASOPHILS % 1.2 ABS. NEUTROPHILS 4,720 1,500 - 7,800 ABS. LYMPHOCYTES 1,525 850 - 3,900 ABS. MONOCYTES 311 200 - 950 ABS. BASOPHILS 83 0 - 200 01/15/2024 Joann Marquez [facility] Final Re sult * (ABNORMAL) LIPID PANEL (01/15/2024) CHOLESTEROL 195 <200 HDL 39 >or =40 TRIGLYCERIDES 263 <150 NON HDL CHOLESTEROL 156 <130 CHOL/HDL RATIO 5.0 <5.0 LDL (CALCULATED) 118 <100 01/15/2024 Joann Marquez [facility] Final Re sult documented in this encounter Visit Diagnoses Diagnosis Coronary artery disease of cheesh-na artery of cheesh-na heart with stable angina pectoris (CMS/HCC) Mixed hyperlipidemia Primary hypertension Unspecified essential hypertension documented in this encounter Care Teams Forming Tube Selector Relationship Specialty Start Date End Date Denisha Hansen PA [address] [place] [address] PCP - General PHYSICIAN STATION HELPER 10/24/23 Joann Marquez ANP- [address] [facility] [address] [place] [address] [place] Roll Mill Operator NURSE PRACTITIONER 02/28/17 documented as of this encounter
--- OUTSIDE RECORDS SUMMARY | 2024-10-26 08:19 | XMS_ITS | Encounter Summary ---
Author Organization [facility] Address [facility]6 [facility]. 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
--- OUTSIDE RECORDS SUMMARY | 2024-10-26 08:19 | XMS_ITS | Encounter Summary ---
Author Organization [facility] Address [address] [place] [address]. 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 Not on file Not on file Not on file Not on file Not on file Not on file documented as of this encounter Plan of Treatment Not on file documented as of this encounter Procedures Procedure Name Priority Date/Time Associated Diagnosis Comments COMPREHENSIVE METABOLIC PANEL Routine 01/15/2024 Coronary artery disease of [place] artery of [place] heart with stable angina pectoris (CMS/HCC) Mixed hyperlipidemia Primary hypertension documented in this encounter Results * (ABNORMAL) COMPREHENSIVE METABOLIC PANEL (01/15/2024) SODIUM S/P/B 134 135 - 146 POTASSIUM S/P/B 4.3 3.5 - 5.3 CO2 19 20 - 32 CHLORIDE S/P/B 108 98 - 110 GLUCOSE 212 65 - 99 mg/dL CALCIUM S/P/B 8.4 8.6 - 10.3 BUN 47 7 - 25 CREATININE S/P/B 3.33(A) 0.7 - 1.3 EGFR NON-AFR. AMER. 22 <=90 ALKALINE PHOSPHATASE S/P/B 69 35 - 144 ALT 9 9 - 46 AST 11 10 - 35 BILIRUBIN TOTAL S/P/B 0.4 0.2 - 1.2 ALBUMIN S/P/B 3.6 3.5 - 5.0 TOTAL PROTEIN S/P/B 6.2 6.1 - 8.1 01/15/2024 Joann Marquez ANP-BC LABORATORY Final Re sult documented in this encounter Visit Diagnoses Diagnosis Coronary artery disease of [place] artery of [place] heart with stable angina pectoris (CMS/HCC) Mixed hyperlipidemia Primary hypertension Unspecified essential hypertension documented in this encounter Care Teams Food Prep Worker Relationship Specialty Start Date End Date Denisha Hansen PA [facility] [place] [address] PCP - General PHYSICIAN SYSTEM PROGRAMMER 10/24/23 Joann Marquez, ANP-BC [address] [facility] [address] [place] [address] [place] Broomcorn Grader NURSE PRACTITIONER 02/28/17 documented as of this encounter
--- OUTSIDE RECORDS SUMMARY | 2024-10-26 08:19 | XMS_ITS | Encounter Summary ---
Author Organization [facility] Address [facility] [place] [address] [place] [address] Care Team Providers Care Supervisor Water Softener Service Name Role Phone Joann Marquez-BC Unavailable Denisha Hansen Primary Care Provider [phone] Reason for Visit * Reason Onset Date Comments Prior Authorization 06/24/2024 Encounter Details Date Type Department Care Team ([facility] st Contact Info) Description 06/24/2024 Telephone 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 documented in this encounter Plan of Treatment Not on file documented as of this encounter Visit Diagnoses Not on filedocumented in this encounter Care Teams Supervisor Water Softener Service Relationship Specialty Start Date End Date Denisha Hansen PA [address] [place] [address] PCP - General PHYSICIAN REAL ESTATE APPRAISER 10/24/23 Joann Marquez, ANP- [address] [facility] [address] [place] [address] [employer] Optical Fabrication Technician NURSE PRACTITIONER 02/28/17 documented as of this encounter
--- OUTSIDE RECORDS SUMMARY | 2024-10-26 08:19 | XMS_ITS | Encounter Summary ---
Author Organization [facility] Address [facility]. 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
--- OUTSIDE RECORDS SUMMARY | 2024-10-26 08:19 | XMS_ITS | Encounter Summary ---
Author Organization [facility] Address [facility]. 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 Not on file Not on file Not on file Not on file Not on file Not on file documented as of this encounter Plan of Treatment Not on file documented as of this encounter Visit Diagnoses Not on filedocumented in this encounter Care Teams Chemical Lab Supervisor Relationship Specialty [place] [address] [place] [address] PCP - General PHYSICIAN TRAUMA COUNSELLOR 10/24/23 Joann Marquez ANP-BC [address] [facility] [address] [place] [address] [place] Adjunct Professor NURSE PRACTITIONER 02/28/17 documented as of this encounter
--- OUTSIDE RECORDS SUMMARY | 2024-10-26 08:19 | XMS_ITS | Encounter Summary ---
Author Organization [facility] Address [address] [place] [address]. [place], [place] [address] [place] [address] Care Team Providers Care Journal Clerk Name Role Phone Joann Marquez [facility]- Unavailable Denisha Hansen Primary Care Provider [phone] Reason for Referral * Imaging (Emergency) - Closed Specialty Diagnoses / Procedures Referred By Cheyanne puentes Referred To Contact RADIOLOGY Diagnoses Other specified disorders of the male genital organs Procedures US TESTICULAR W DOPPLER Enriqueta Villasenor FNP [address] [place] [address] Phone: tel: fax: Referral ID Status Reason Start Date Expiration Date Visits Re quested Visits Authorized [id number] Closed 01/22/2024 02/20/2025 1 1 Reason for Visit * Imaging (Emergency) - Closed Specialty Diagnoses / Procedures Referred By Cheyanne puentes Referred To Contact RADIOLOGY Diagnoses Other specified disorders of the male genital organs Procedures US TESTICULAR W DOPPLER Enriqueta Villasenor FNP [address] [place] [address] Phone: tel: fax: Referral ID Status Reason Start Date Expiration Date Visits Re quested Visits Authorized [id number] Closed 01/22/2024 02/20/2025 1 1 Encounter Details Date Type Department Care Team (Latest Contact Info) Description 01/22/2024 2:40 PM CDT - 01/22/2024 11:59 PM CDT Hospital Encounter 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 90 tablet 11/06/2023 icosapent ethyl (VASCEPA) 1 G capsule Take 2 capsules (2 g total) by mouth 2 (two) times daily. Take with food. 120 capsule 12 05/08/2022 insulin lispro (HUMALOG) 100 UNIT/ML injection (VIAL) Inject into the skin see administration instructions. 02/11/2014 pantoprazole EC 40 MG tablet Take 40 mg by mouth 2 (two) times daily. 11/24/2021 venlafaxine XR 75 MG 24 hr capsule Take 150 mg by mouth daily. 12/07/2021 carvedilol (COREG) 25 MG tablet Take 1 tablet (25 mg total) by mouth 2 (two) times daily. 180 tablet 3 11/06/2023 06/04/20 24 clopidogrel (PLAVIX) 75 MG tablet Take 1 tablet (75 mg total) by mouth daily. 90 tablet 3 11/06/2023 06/04/20 24 ezetimibe (ZETIA) 10 MG tablet Take 1 tablet (10 mg total) by mouth daily. 90 tablet 3 01/23/2024 06/11/20 24 isosorbide mononitrate ER (IMDUR) 60 MG 24 hr tablet Take 1 tablet (60 mg total) by mouth every morning. 90 tablet 3 11/06/2023 06/04/20 24 nitroglycerin 0.[address] 1 tablet (0.4 mg total) under the tongue every 5 (five) minutes as needed for Chest Pain. Maximum of 3 doses. 30 tablet 1 11/02/2021 06/04/20 24 vitamin D2, ergocalciferol, 95888 UNITS capsule Take 50,000 Units by mouth once a week. 10/28/2021 06/11/20 24 documented as of this encounter Plan of Treatment Not on file documented as of this encounter Procedures Procedure Name Priority Date/Time Associated Diagnosis Comments US TESTICULAR W DOPPLER STAT 01/22/2024 3:54 PM CDT Other specified disorders of the male genital organs documented in this encounter Results * US TESTICULAR W DOPPLER (01/22/2024 3:54 PM CDT) Anatomical Region Laterality Modality Pelvis Ultrasound 01/22/2024 4:09 PM CDT Impressions 01/22/2024 4:26 PM CDT IMPRESSION: 1. ??No testicular mass. Mild orchitis in both testes. Mild bilateral epididymitis. No epididymal mass. 2. ??At the level of palpable abnormality, between the right and left hemiscrotum, there is an ill-defined mixed echogenic lesion as detailed above. With increased color flow to this area, may represent underlying mass versus inflammatory phlegmon. Follow-up with urology consultation will be needed. 3. ??There is another ill-defined mixed echogenic region along the inferior aspect of the left hemiscrotum may be due to inflammatory process. No distinct abscess.. Again follow-up will be needed. 4. ??Small bilateral hydroceles and small bilateral varicoceles. Ordered By: ENRIQUETA VILLASENOR Interpreted By: Aguilar Luther, 01/22/2024 4:09 PM Narrative 01/22/2024 4:26 PM CDT IMAGING STUDIES: ??US TESTICULAR W DOPPLER ? DATE: ??01/22/2024 2:47 PM CLINICAL HISTORY: ?Disorder of male genital organs ?? . ??Hard palpable mass for 4 days with swelling. No history of trauma. FINDINGS: RIGHT TESTICLE MEASURES 5.4 x 2.0 x 3.2 cm. LEFT TESTICLE MEASURES 5.3 x 2.1 x 3.1 cm. Mild increased color flow to both testes, greater on the right side. May be due to mild orchitis. No gross testicular mass. Few scattered microliths in the left testes. Follow-up will be needed. Small bilateral hydroceles. Small bilateral varicoceles. Largest on the right side measures 2.9 mm. Largest on the left side measures 3.9 mm.. Mild increased color flow to the right epididymis. Minor increased color flow to the left epididymis. Most likely due to mild epididymitis. No distinct epididymal mass. At the level of palpable abnormality in between the right and left hemiscrotum along its inferior aspect. There is an ill-defined mixed echogenic lesion with increased color flow. May be underlying mass versus inflammatory phlegmon.. This measures 2.2 x 1.9 x 1.8 cm.. Inferior to the left hemiscrotum there is an ill-defined mixed echogenic region with mild increased color flow. May be due to inflammatory process. No distinct abscess. This is outside of the left hemiscrotum. Procedure Note Lewis Luther MD - 01/22/2024 IMAGING STUDIES: US TESTICULAR W DOPPLERDATE: 01/22/2024 2:47 PM CLINICAL HISTORY: Disorder of male genital organs . Hard palpablemass for 4 days with swelling. No history of trauma. FINDINGS: RIGHT TESTICLE MEASURES 5.4 x 2.0 x 3.2 cm. LEFT TESTICLE MEASURES 5.3 x 2.1 x 3.1 cm. Mild increased color flow to both testes, greater on the right side. Maybe due to mild orchitis. No gross testicular mass. Few scatteredmicroliths in the left testes. Follow-up will be needed. Small bilateral hydroceles. Small bilateral varicoceles. Largest on theright side measures 2.9 mm. Largest on the left side measures 3.9 mm.. Mild increased color flow to the right epididymis. Minor increased colorflow to the left epididymis. Most likely due to mild epididymitis. Nodistinct epididymal mass. At the level of palpable abnormality in between the right and lefthemiscrotum along its inferior aspect. There is an ill-defined mixedechogenic lesion with increased color flow. May be underlying mass versusinflammatory phlegmon.. This measures 2.2 x 1.9 x 1.8 cm.. Inferior to the left hemiscrotum there is an ill-defined mixed echogenicregion with mild increased color flow. May be due to inflammatory process.No distinct abscess. This is outside of the left hemiscrotum. IMPRESSION: 1. No testicular mass. Mild orchitis in both testes. Mild bilateralepididymitis. No epididymal mass. 2. At the level of palpable abnormality, between the right and lefthemiscrotum, there is an ill-defined mixed echogenic lesion as detailedabove. With increased color flow to this area, may represent underlyingmass versus inflammatory phlegmon. Follow- up with urology consultationwill be needed. 3. There is another ill-defined mixed echogenic region along the inferioraspect of the left hemiscrotum may be due to inflammatory process. Nodistinct abscess.. Again follow-up will be needed. 4. Small bilateral hydroceles and small bilateral varicoceles. Ordered By: ENRIQUETA VILLASENOR Interpreted By: Aguilar Luther, 01/22/2024 4:09 PM us Enriqueta Villasenor WASH OIL PUMP OPERATOR ULTRASOUND Final Resul t documented in this encounter Visit Diagnoses Diagnosis Other specified disorders of the male genital organs documented in this encounter Care Teams Journal Clerk Relationship Specialty Start Date End Date Denisha Hansen PA [address] [place] [address] PCP - General PHYSICIAN ORTHOPEDIC PODIATRIST 10/24/23 Joann Marquez, ANP- [address] [facility] [address] [place] [address] [place] Hydrogenation Operator NURSE PRACTITIONER 02/28/17 documented as of this encounter
--- OUTSIDE RECORDS SUMMARY | 2024-10-26 08:20 | XMS_ITS | Encounter Summary ---
Author Organization [facility] Address [address] [place] [address]. [place] [address] [place] [address] Care Team Providers Care Plaster Lather Name Role Phone Dennis Doran MD Primary Care Provider Joann Marquez-ERICA Unavailable [phone] Encounter Details Date Type Department Care Team ([facility] st Contact Info) Description 12/02/2021 Orders Only [facility] [address] [place] [address] Joann Marquez ANP-BC [address] [facility] [address] [place] [address] Social History Tobacco Use Types Packs/Day Years Used Date Smoking Tobacco: Every Day Cigarettes Smokeless Tobacco: Never Alcohol Use Standard Drinks/Week Comments Yes 0 (1 standard drink = 0.6 oz pur e alcohol) 4-6 weekly Sex and Gender Information Value Date Recorded Sex Assigned at Not on file Legal Sex Male 1:10 AM CDT Gender Identity Not on file Sexual Orientation Not on file 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 No / Unsure 12/02/2021 9:21 AM PODIATRY TEACHER documented as of this encounter Plan of Treatment Not on file documented as of this encounter Visit Diagnoses Not on filedocumented in this encounter Care Teams Plaster Lather Relationship Specialty Start Date End Date Dennis Doran MD PCP - General INTERNAL MEDICINE 02/28/17 10/23/23 Joann Marquez, [facility]- [address] [facility] [address] [place] [address] [place] Turning And Beading Machine Operator NURSE PRACTITIONER 02/28/17 documented as of this encounter
--- OUTSIDE RECORDS SUMMARY | 2024-10-26 08:20 | XMS_ITS | Encounter Summary ---
Author Organization [facility] Address [facility] [place] [address] [place] [address] Care Team Providers Care Rating Officer Name Role Phone Dennis Doran MD Primary Care Provider [phone] Joann Marquez Unavailable [phone] Reason for Visit * Reason Onset Date Comments Reschedule 10/01/2023 Refill Request 10/01/2023 Encounter Details Date Type Department Care Team ([facility] st Contact Info) Description 10/01/2023 [facility]phone [place] [facility] [address] [place] [address] Joann Marquez ANP-BC [address] [facility] [address] [place] [address] Reschedule; Refill Request Social History Tobacco Use Types Packs/Day Years [...] 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 N ORGANISER * Rosana Felipe - 10/02/2023 2:30 PM CST Patient checked with [facility] in [place], they did not receive his refill for his clopidogrel. Patient asked if you could send it through again. His call back # is [phone]. N ORGANISER * Amanda Maldonado LPN - 10/01/2023 12:31 PM CST Pt aware . N ORGANISER * MARIO Mendenhall - 10/01/2023 11:20 AM CST Please provide patient one more supply of plavix 75mg daily to last until his next appointment. Please tell him if he reschedules again he will need to get further refill from his primary provider. If he runs out of plavix he should start an 81mg aspirin daily in its place. N ORGANISER N ORGANISER * Loretta Kaur - 10/01/2023 11:12 AM CST Patient called and rescheduled his follow up. Rescheduled to 11/06/2023 at 8:30 am with Joann Gaffney. Patient needs refill on his Clopidogrel called into [facility] in [place], [place] N ORGANISER documented in this encounter Plan of Treatment Not on file documented as of this encounter Visit Diagnoses Not on filedocumented in this encounter Care Teams Rating Officer Relationship Specialty Start Date End Date Dennis Doran MD PCP - General INTERNAL MEDICINE 02/28/17 10/23/23 Joann Marquez, ANP- [address] [facility] [address] [place] [address] [place] Toll Gate Tender NURSE PRACTITIONER 02/28/17 documented as of this encounter
--- OUTSIDE RECORDS SUMMARY | 2024-10-26 08:20 | XMS_ITS | Encounter Summary ---
Author Organization [facility] Address [address] [place] [address]. 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 No / Unsure 12/19/2021 10:29 AM ENT PHYSICIAN documented as of this encounter Plan of Treatment Not on file documented as of this encounter Visit Diagnoses Not on filedocumented in this encounter Care Teams Openstack Developer Relationship Specialty Start Date End Date Dennis Doran MD PCP - General INTERNAL MEDICINE 02/28/17 10/23/23 Joann Marquez ANP-BC [address] [facility] [address] [place] [phone] [place] Student Finance Advisor NURSE PRACTITIONER 02/28/17 documented as of this encounter
--- OUTSIDE RECORDS SUMMARY | 2024-10-26 08:20 | XMS_ITS | Encounter Summary ---
Author Organization [facility] Address [facility] [place] [address] [place] [address] Care Team Providers Care Lung Gun Operator Name Role Phone Dennis Doran MD Primary Care Provider [phone] Joann Marquez-ERICA Unavailable Reason for Visit * Reason Onset Date Comments Appointment Request 05/28/2023 Encounter Details Date Type Department Care Team ([facility] st Contact Info) Description 05/28/2023 Telephone [facility] [address] [place] [address] Jonan Marquez, AURELIANO-BC [address] [facility] [address] [place] [address] Appointment Request Social History Tobacco Use Types Packs/Day [...] 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 Scheduled on 06/26/23 at 1:00 pm with Joann Marquez at [facility]. Patient agreed to date, time, and location. * Loretta Kaur - 05/28/2023 10:40 AM CDT Called the patient and left a msg for a return call to reschedule appointment with Joann. * Kelsey Kirby LPN - 05/28/2023 10:29 AM CDT Received fax for prior auth for Vascepa but pt missed last appt and never had lipids done that weredue in September. Please call pt to see if he wants to reschedule appt ? documented in this encounter Plan of Treatment Not on file documented as of this encounter Visit Diagnoses Diagnosis Hyperlipidemia, unspecified hyperlipidemia type- Primary documented in this encounter Care Teams Lung Gun Operator Relationship Specialty Start Date End Date Dennis Doran MD PCP - General INTERNAL MEDICINE 02/28/17 10/23/23 Joann Marquez ANP- [address] [facility] [address] [place] [address] [place] Diamond Finishing Supervisor NURSE PRACTITIONER 02/28/17 documented as of this encounter
--- OUTSIDE RECORDS SUMMARY | 2024-10-26 08:20 | XMS_ITS | Encounter Summary ---
Author Organization [facility] Address [address] [place] [address]. [place], [place] [address] [place] [address] Care Team Providers Care Manager Orange Name Role Phone Dennis Doran MD Primary Care Provider [phone] Joann Marquez [facility]- Unavailable [phone] Reason for Visit * Reason Onset Date Comments Lab Results 05/05/2022 Returned Call 05/05/2022 Encounter Details Date Type Department Care Team (Late st Contact Info) Description 05/05/2022 Telephone [facility] [address] [place] [address] Dieter Arechiga MD [address] [address] Lab Results; Returned Call Social History Tobacco Use Types Packs/Day Years [...] 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 Done. * Dieter Wade MD - 05/23/2022 11:00 AM CDT To whom it may concern: I am writing to appeal the denial of Vascepa for the patient. He has history of coronary disease and prior coronary intervention as well as diabetes. I recommended adding Vascepa to his statin to lower his cardiovascular event rate based on strong randomized trial results. Generic Lovaza/omega-3 fatty acids, nicotinic acid and fenofibrate do not have the strong cardiovascular event reduction datathat has been determined with Vascepa. Please approve Vascepa for this gentleman. Sincerely, Dieter Arechiga MD * Kelsey Kirby LPN - 05/16/2022 3:11 PM CDT Called [facility] and they do not do appeals over the phone, Will need to fax in appeal with the appeal form we received with denial. * Dieter Wade MD - 05/16/2022 2:52 PM CDT I would like to appeal by phone if possible * Kelsey Kirby LPN - 05/15/2022 9:48 AM CDT Received fax from [facility] and Vascepa denied due to pt has not had inadequate treatment response, intolerance of contraindication to fenofibrate, nicotinic acid or other Shelby 3 acid ethyl esters(generic Lovaza) * Kelsey Kirby LPN - 05/10/2022 2:05 PM CDT Faxed PA to [facility] * Kelsey Kirby LPN - 05/08/2022 3:54 PM CDT Received PA request on cover my meds but not able to complete. Called [facility] and they will fax PA for Vascepa * Kelsey Kirby LPN - 05/08/2022 1:45 PM CDTAddended by: KELSEY KIRBY on: 05/08/2022 01:45 PM Modules accepted: Orders * Kelsey Kirby LPN - 05/08/2022 1:44 PM CDT Returned call to pt, reviewed Dr Arechiga note. Aware I will send script but to call before picking it up for cost and if too expensive to call me and let us know. He agrees. Aware if he starts it then will recheck cholesterol in 8 weeks. He understands * Rosana Felipe - 05/08/2022 1:35 PM CDT PCCLVOICEMAILMESSAGEPCCL VOICE MAIL VM DATE/TIME:05/08/22 @ 1259pm CALLER: patient #: [phone] PROVIDER/NEW PT: Geni REASON FOR CALL: returning Kelsey's call REQUEST HANDLED AND HOW: IF NOT HANDLED, ENCOUNTER NOTE SENT TO: message to nurse board * Kelsey Kirby LPN - 05/08/2022 9:25 AM CDT Left message on cell for pt to call office. * Dieter Wade MD - 05/05/2022 2:19 PM CDT Add vacepa 2 grams bid. Repeat fasting lipid with a direct LDL and sgot in 8 weeks. Send this note to PA * Kelsey Kirby LPN - 05/05/2022 11:18 AM CDT Received fax from Denisha MCCLURE with copy of patients labs done on 04/26. Labs in Epic Her note states recent cholesterol (despite Atorvastatin 80 mg) documented in this encounter Plan of Treatment Not on file documented as of this encounter Procedures Procedure Name Priority Date/Time Associated Diagnosis Comments MAGNESIUM (OUTSIDE LAB) Routine 04/26/2022 TSH (OUTSIDE LAB) Routine 04/26/2022 CMP (OUTSIDE LAB) Routine 04/26/2022 CBC (OUTSIDE LAB) Routine 04/26/2022 ALBUMIN URINE RANDOM W/CREATININE Routine 04/26/2022 LIPID PANEL Routine 04/26/2022 Hyperlipidemia, unspecified hyperlipidemia type THYROXINE, FREE (FT4) Routine 04/26/2022 documented in this encounter Results * MAGNESIUM (OUTSIDE LAB) (04/26/2022) Pathologist [facility] MAGNESIUM 1.9 04/26/2022 Denisha MCCLURE LAB-OUTSIDE/ABSTRACTED Final Result * ALBUMIN URINE RANDOM (04/26/2022) [facility] MICROALBUMIN (U) 262.1 CREATININE RANDOM (U) 90 MICROALB/CREAT 2,912 >50 Comment:note 09/20/21 was 40 70 URINE SPECIMEN / Unknown 04/26/2022 Denisha MCCLURE URINE ORDERABLES Final Result * CBC (OUTSIDE LAB) (04/26/2022) [facility] WBC 6.3 HGB 13.7 HCT 42.0 RBC 4.63 04/26/2022 Denisha MCCLURE LAB-OUTSIDE/ABSTRACTED Final Result * THYROXINE, FREE (FT4) (04/26/2022) [facility] FREE T4 0.9 04/26/2022 Denisha MCCLURE LABORATORY Final Result * (ABNORMAL) TSH (OUTSIDE LAB) (04/26/2022) [facility] TSH 7.87(A) <=4.50 04/26/2022 Denisha MCCLURE LAB-OUTSIDE/ABSTRACTED Final Result * (ABNORMAL) CMP (OUTSIDE LAB) (04/26/2022) [facility] SODIUM S/P/B 136 POTASSIUM S/P/B 4.5 CHLORIDE S/P/B 105 CO2 22 BUN 37(A) <=25 CREATININE S/P/B 2.59(A) 0.7 - 1.3 EGFR AFR. AMER. 32 <=90 EGFR NON-AFR. AMER. 28 <=90 CALCIUM S/P/B 9.0 GLUCOSE 200(A) <=99 mg/dL TOTAL PROTEIN S/P/B 6.7 ALBUMIN S/P/B 3.7 3.5 - 5.0 AST 19 ALT 16 ALKALINE PHOSPHATASE S/P/B 93 BILIRUBIN TOTAL S/P/B 0.3 04/26/2022 us Denisha MCCLURE LAB-OUTSIDE/ABSTRACTED Final Result * (ABNORMAL) LIPID PANEL (04/26/2022) CHOLESTEROL 280(A) 0 - 200 HDL 36(A) >=40 TRIGLYCERIDES 776(A) 0 - 150 LDL (CALCULATED) Comment:unable to calculate 04/26/2022 Dieter Wade MD LABORATORY Final Result documented in this encounter Visit Diagnoses Diagnosis Hyperlipidemia, unspecified hyperlipidemia type documented in this encounter Care Teams Manager Orange Relationship Specialty Start Date End Date Dennis Doran MD PCP - General INTERNAL MEDICINE 02/28/17 10/23/23 Joann Marquez ANP- [address] [facility] [address] [place] [address] [place] Engine Manager NURSE PRACTITIONER 02/28/17 documented as of this encounter
--- OUTSIDE RECORDS SUMMARY | 2024-10-26 08:20 | XMS_ITS | Encounter Summary ---
Author Organization [facility] Address [address] [place] [address]. [place], [place] [address] [place] [address] Care Team Providers Care Night Guard Name Role Phone Dennis Doran MD Primary Care Provider [phone] Joann Marquez Unavailable [phone] Reason for Referral * Procedure (Routine) - Closed Specialty Diagnoses / Procedures Referred By Contnikkie t Referred To Contact Diagnoses Persistent atrial fibrillation ([facility]) CAD (coronary artery disease) Procedures Cardiology Stress Test Only, Exercise [facility] [address] [place] [address] Phone: tel: Referral ID Status Reason Start Date Expiration Date Visits Re quested Visits Authorized [id number] Closed 12/02/2021 12/30/2022 1 1 T PSYCHIATRIST Reason for Visit * Imaging (Routine) - Closed Specialty Diagnoses / Procedures Referred By Contnikkie puentes Referred To Contact RADIOLOGY Diagnoses 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 ([facility]) Procedures NM PHARM NUC STRESS TEST 2DAY NM EXER NUC STRESS TEST 1DAY Joann Marquez ANP-BC [address] [facility] [address] [place] [address] Phone: tel: fax: Referral ID Status Reason Start Date Expiration Date Visits Re quested Visits Authorized [id number] Closed 11/08/2021 12/09/2022 1 2 Encounter Details Date Type Department Care Team (Latest Contact Info) Description 12/02/2021 9:23 AM ADULT PSYCHIATRIST - 12/02/2021 11:59 PM ADULT PSYCHIATRIST Hospital Encounter [facility] [address] [place] [address] Joann Marquez, ANP-BC [address] 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 No / Unsure 12/02/2021 9:21 AM ADULT PSYCHIATRIST documented as of this encounter Medications at Time of Discharge ALPRAZolam 0.5 MG tablet Take 0.5 mg by mouth nightly as needed. at bedtime. 11/02/2021 amlodipine (NORVASC) 10 MG tablet Take 10 mg by mouth daily. 09/24/2015 insulin lispro (HUMALOG) 100 UNIT/ML injection (VIAL) Inject into the skin see administration instructions. 02/11/2014 pantoprazole EC 40 MG tablet Take 40 mg by mouth 2 (two) times daily. 11/24/2021 atorvastatin (LIPITOR) 80 MG tablet Take 1 tablet (80 mg total) by mouth every evening. 90 tablet 1 11/08/2021 05/11/20 22 carvedilol 25 MG tablet Take 1 tablet (25 mg total) by mouth 2 (two) times daily. 60 tablet 11 05/04/2017 11/06/19 24 CLOPIDOGREL 75 MG tablet TAKE 1 TABLET(75 MG) BY MOUTH DAILY 90 tablet 3 06/28/2021 06/26/20 22 esomeprazole (NEXIUM) 40 MG capsule Take 1 tablet by mouth daily. 02/23/2014 12/21/19 22 isosorbide mononitrate ER 30 MG 24 hr tablet Take 1 tablet (30 mg total) by mouth every morning. 90 tablet 1 12/02/2021 05/12/20 22 nitroglycerin 0.[address] 1 tablet (0.4 mg total) under the tongue every 5 (five) minutes as needed for Chest Pain. Maximum of 3 doses. 30 tablet 1 11/02/2021 06/04/20 24 vilazodone (VIIBRYD) 40 MG tablet Viibryd (vilazodone) tablet 40 mg; take 1 tablet by mouth once a day with meal; 0; -Feb-2014; Active 02/23/2014 12/21/19 22 vitamin D2, ergocalciferol, 03941 UNITS capsule Take 50,000 Units by mouth once a week. 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 CARDIOLOGY STRESS TEST ONLY, EXERCISE Routine 12/02/2021 9:30 AM ADULT PSYCHIATRIST Persistent atrial fibrillation ([facility]) CAD (coronary artery disease) documented in this encounter Visit Diagnoses Diagnosis Persistent atrial fibrillation ([facility])- Primary Atrial fibrillation CAD (coronary artery disease) Coronary atherosclerosis of unspecified type of vessel, venetie or graft documented in this encounter Administered Medications Inactive Administered Medications - up to 3 most recent administrations Medication Order MAR Action Action Date Dose Rate Site regadenoson (LEXISCAN) injection 0.4 mg 0.4 mg, Intravenous, Once, 1 dose, On Sun12/02/21 at 1000, Administer over 10 seconds Given 12/02/2021 9:43 AM ADULT PSYCHIATRIST 0.4 mg documented in this encounter Care Teams Night Guard Relationship Specialty Start Date End Date Dennis Doran MD PCP - General INTERNAL MEDICINE 02/28/17 10/23/23 Joann Marquez, [facility]- [address] [facility] [address] [place] [address] [place] Patient Service Specialist NURSE PRACTITIONER 02/28/17 documented as of this encounter
--- OUTSIDE RECORDS SUMMARY | 2024-10-26 08:20 | XMS_ITS | Encounter Summary ---
Author Organization [facility] Address [address] [place] [address]. [address] [address] Care Team Providers Care It Network Administrator Name Role Phone Joann Marquez Bernard [facility]- Unavailable [phone] Denisha Hansen Primary Care Provider Reason for Referral * Imaging (Routine) - Closed Specialty Diagnoses / Procedures Referred By Contac t Referred To Contact RADIOLOGY Diagnoses Dyspnea, unspecified Other abnormalities of breathing Chronic obstructive pulmonary disease, unspecified ([facility] HHS/HCC) Procedures CT CHEST WO Denisha Liu PA [address] [place] [address] Phone: tel: fax: Referral ID Status Reason Start Date Expiration Date Visits Re quested Visits Authorized [id number] Closed 12/06/2023 03/05/2024 1 1 OWER Reason for Visit * Imaging (Routine) - Closed Specialty Diagnoses / Procedures Referred By Contac t Referred To Contact RADIOLOGY Diagnoses Dyspnea, unspecified Other abnormalities of breathing Chronic obstructive pulmonary disease, unspecified ([facility] HHS/HCC) Procedures CT CHEST WO Denisha Liu PA [address] [place] [address] Phone: tel: fax: Referral ID Status Reason Start Date Expiration Date Visits Re quested Visits Authorized [id number] Closed 12/06/2023 03/05/2024 1 1 Encounter Details Date Type Department Care Team (Latest Contact Info) Description 12/18/2023 1:21 PM [facility] - 12/18/2023 11:59 PM [facility] 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 10/28/2021 06/11/20 documented as of this encounter Plan of Treatment Not on file documented as of this encounter Procedures Procedure Name Priority Date/Time Associated Diagnosis Comments CT CHEST WO CON Routine 12/18/2023 1:32 PM [facility] Dyspnea, unspecified Other abnormalities of breathing Chronic obstructive pulmonary disease, unspecified ([facility]) documented in this encounter Results * CT CHEST WO CON (12/18/2023 1:32 PM [facility]) Anatomical Region Laterality Modality Chest Computed Tomogra phy 12/19/2023 5:48 AM [facility] Impressions 12/19/2023 5:56 AM [facility] IMPRESSION: 1. ??No evidence of infiltrate or effusion.. ??Mild emphysematous change. 2. ??No pathologic pulmonary nodules. ??Stable nonpathologic sized mediastinal lymph nodes.. 3. ??Advanced coronary artery calcifications with stents. Referred By: DENISHA HANSEN Interpreted By: Lewis Luther MD, 12/19/2023 5:48 AM Narrative 12/19/2023 5:56 AM [facility] EXAMINATION: CT CHEST WITHOUT CONTRAST EXAM DATE/TIME: [...] 5:[address] Final Result documented in this encounter Visit Diagnoses Diagnosis Dyspnea, unspecified Other abnormalities of breathing Chronic obstructive pulmonary disease, unspecified (CMS/HCC HHS/HCC) documented in this encounter Care Teams It Network Administrator Relationship Specialty Start Date End Date Denisha Hansen PA [address] [place] [address] PCP - General PHYSICIAN WIRE LOOP MACHINE OPERATOR 10/24/23 Joann Marquez, ANP-BC [address] [facility] [address] [place] [address] [place] Pattern Changer And Repairer NURSE PRACTITIONER 02/28/17 documented as of this encounter
--- OUTSIDE RECORDS SUMMARY | 2024-10-26 08:20 | XMS_ITS | Encounter Summary ---
Author Organization [facility] Address [address] [place] [address]. 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 Yes 11/07/2021 3:01 PM TURNTABLE OPERATOR documented as of this encounter Plan of Treatment Not on file documented as of this encounter Procedures Procedure Name Priority Date/Time Associated Diagnosis Comments D-DIMER, QUANTITATIVE Routine 10/17/2021 TROPONIN WHOLE BLOOD Routine 09/20/2021 COMPREHENSIVE METABOLIC PANEL Routine 09/20/2021 CBC W/DIFF AUTOMATED Routine 09/20/2021 documented in this encounter Results * D-DIMER, QUANTITATIVE (10/17/2021) Pathologist [facility] D-DIMER 0.47 10/17/2021 us Doc [facility] Abstract LABORATORY Final Result * TROPONIN WHOLE BLOOD (09/20/2021) [facility] TROPONIN T 8 <23 09/20/2021 us Doc [facility] Abstract LABORATORY Final Result * CBC W/DIFF AUTOMATED (09/20/2021) [facility] WBC 7.8 RBC 4.45 HGB 13.4 HCT 40.4 MCV 90.8 MCH 30.1 MCHC 33.2 RDW 13.8 PLT 214 NEUTROPHILS % 70.6 LYMPHOCYTES % 17.1 MONOCYTES % 5.6 EOSINOPHILS % 5.4 BASOPHILS % 1.3 ABS. NEUTROPHILS 5,507 ABS. LYMPHOCYTES 1,334 ABS. MONOCYTES 437 ABS. BASOPHILS 101 09/20/2021 us Doc [facility] Abstract LABORATORY Final Result * (ABNORMAL) COMPREHENSIVE METABOLIC PANEL (09/20/2021) Pathologist [facility] SODIUM S/P/B 138 POTASSIUM S/P/B 4.2 CO2 27 CHLORIDE S/P/B 104 CALCIUM S/P/B 8.8 BUN 19 CREATININE S/P/B 2.00(A) 0.7 - 1.3 EGFR AFR. AMER. 44 <=90 EGFR NON-AFR. AMER. 38 <=90 ALKALINE PHOSPHATASE S/P/B 87 ALT 13 AST 16 BILIRUBIN TOTAL S/P/B 0.4 ALBUMIN S/P/B 3.4(A) 3.5 - 5.0 TOTAL PROTEIN S/P/B 6.2 09/20/2021 us Doc [facility] Abstract LABORATORY Final Result documented in this encounter Visit Diagnoses Not on filedocumented in this encounter Additional Health Concerns Infection Onset Date Last Indicated Resolved Time COVID-19 Rule Out 01/06/2022 01/06/2022 01/07/2022 2:32 PM CDT documented as of this encounter Care Teams Canopy Stringer Relationship Specialty Start Date End Date Dennis Doran MD PCP - General INTERNAL MEDICINE 02/28/17 10/23/23 Denisha Hansen PA [address] [place] [address] PCP - General PHYSICIAN BEHAVIORAL GENETICIST 10/24/23 Joann Marquez, ANP-BC [address] [facility] [address] [place] [phone] Packer Operator NURSE PRACTITIONER 02/28/17 documented as of this encounter
--- OUTSIDE RECORDS SUMMARY | 2024-10-26 08:20 | XMS_ITS | Encounter Summary ---
Author Organization [facility] Address Critical access hospital6 [facility] [address] [place] [address] Care Team Providers Care Steel Fitter Name Role Phone Dennis Doran MD Primary Care Provider [phone] Joann Marquez-BC Unavailable Reason for Visit * Reason Onset Date Comments Medication Request 06/20/2023 Encounter Details Date Type Department Care Team ([facility] st Contact Info) Description 06/20/2023 Telephone [facility] ld [address] [place] [address] Joann Marquez, AURELIANO-BC [address] [facility] [address] [place] [address] Medication Request Social History Tobacco Use Types Packs/Day [...] 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 Refill of clopidogrel 75 mg Q day. c [phone] 06-22-23 ok to refill plavix 75 mg 1 daily # 30 with no refills . Pt has appt next week Joann. Will give further refills then. .06-22-23 shantal peguero called [facility] script was filled. documented in this encounter Plan of Treatment Not on file documented as of this encounter Visit Diagnoses Not on filedocumented in this encounter Care Teams Steel Fitter Relationship Specialty Start Date End Date Dennis Doran MD PCP - General INTERNAL MEDICINE 02/28/17 10/23/23 Joann Marquez, ANP- [address] [facility] [address] [place] [address] [place] Customer Service Manager NURSE PRACTITIONER 02/28/17 documented as of this encounter
--- OUTSIDE RECORDS SUMMARY | 2024-10-26 08:20 | XMS_ITS | Encounter Summary ---
Author Organization [facility] Address [address] [place] [address]. 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 Not on file Not on file Not on file Not on file Not on file Not on file documented as of this encounter Plan of Treatment Not on file documented as of this encounter Procedures Procedure Name Priority Date/Time Associated Diagnosis Comments ECG GENERIC (SCAN ORDER) Routine 04/20/2023 documented in this encounter Results * ECG (04/20/2023) us Doc Pccl Scanned SCANNING Final Result [facility] documented in this encounter Visit Diagnoses Not on filedocumented in this encounter Care Teams Event Representative Relationship Specialty Start Date End Date Dennis Doran MD PCP - General INTERNAL MEDICINE 02/28/17 10/23/23 Joann Marquez, ANP- [address] [facility] [address] [place] [phone] [place] Allied Health Professional NURSE PRACTITIONER 02/28/17 documented as of this encounter
--- OUTSIDE RECORDS SUMMARY | 2024-10-26 08:20 | XMS_ITS | Encounter Summary ---
Author Organization [facility] Address [address] [place] [address]. 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 No / Unsure 12/02/2021 9:21 AM NURSE CLINICAL documented as of this encounter Plan of Treatment Not on file documented as of this encounter Visit Diagnoses Not on filedocumented in this encounter Care Teams Staffing Specialist Relationship Specialty Start Date End Date Dennis Doran MD PCP - General INTERNAL MEDICINE 02/28/17 10/23/23 Joann Marquez ANP-BC [address] [facility] [address] [place] [phone] [place] Cad Technician NURSE PRACTITIONER 02/28/17 documented as of this encounter
--- OUTSIDE RECORDS SUMMARY | 2024-10-26 08:20 | XMS_ITS | Encounter Summary ---
Author Organization [facility] Address [address] [place] [address]. [place], [place] [address] [place] [address] Care Team Providers Care Generator Repairer Name Role Phone Dennis Crump MD Primary Care Provider [phone] Joann Marquez [facility]-BC Unavailable [phone] Reason for Referral * Imaging (Routine) - Closed Specialty Diagnoses / Procedures Referred By Cheyanne puentes Referred To Contact RADIOLOGY Diagnoses Abnormal cardiovascular stress test Procedures [facility] Tete Malagon MD [address] [place] [address] Phone: tel: fax: Referral ID Status Reason Start Date Expiration Date Visits Re quested Visits Authorized [id number] Closed 01/03/2022 04/05/2022 1 1 Reason for Visit * Imaging (Routine) - Closed Specialty Diagnoses / Procedures Referred By Cheyanne puentes Referred To Contact RADIOLOGY Diagnoses Abnormal cardiovascular stress test Procedures [facility] Tete Malagon MD [address] [place] [address] Phone: tel: fax: Referral ID Status Reason Start Date Expiration Date Visits Re quested Visits Authorized [id number] Closed 01/03/2022 04/05/2022 1 1 Encounter Details Date Type Department Care Team (Latest Contact Info) Description 01/09/2022 6:58 AM CDT - 01/09/2022 12:47 PM CDT Hospital Encounter [facility] Physician Pre/Post [address] [place] [address] Tete Hollis MD [address] [place], [place] [id number] Discharge Disposition: Home or Self Care (Routine [...] 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 Not on file Not on file Not on file Not on file Not on file Not on file Not on file COVID-19 Exposure Response Date Recorded In the last 10 days, have yo u been in contact with someone who was confirmed or suspected to have Coronavirus/COVID-19? No / Unsure 01/09/2022 7:07 AM CDT documented as of this encounter Last Filed Vital Signs Vital Sign Reading Time Taken Comments Blood Pressure 140/83 01/09/2022 7:24 AM CDT left bp 140/84 Pulse 73 01/09/2022 7:24 AM CDT Temperature 35.6 ??C (96.1 ??F) 01/09/2022 7 :24 AM CDT Respiratory Rate 16 01/09/2022 7:24 AM CDT Oxygen Saturation 98% 01/09/2022 7:2 4 AM CDT Inhaled Oxygen Concentration - - Weight 90.4 kg (199 lb 4.7 oz) 01/09/2022 7:24 AM CDT Height 180.3 cm (5' 11 ) 01/09/2022 7:2 4 AM CDT Body Mass Index 27.8 01/09/2022 7:24 AM CDT documented in this encounter Discharge Summaries * Tete Hollis MD - 01/09/2022 10:22 AM CDT Images from the original note were not included. DISCHARGE SUMMARY Tank Kowalski male 1975 ADMIT DATE: 01/09/2022 6:58 AM DISCHARGE DATE: 01/09/2022 DISCHARGE PHYSICIAN: TETE HOLLIS MD DISCHARGE DIAGNOSIS: Coronary artery disease Hypertension Hypercholesterolemia Insulin-dependent diabetes mellitus Tobacco abuse HOSPITAL COURSE: 46-year-old male with past medical history of coronary artery disease, hypertension, hypercholesterolemia and tobacco use admitted to the hospital for elective cardiac optimization with a history of a stable angina. A diagnostic coronary angiogram performed through a right transradial approach revealed the presence of a patent stent in the proximal portion of the left anterior descending coronaryartery as well as nonobstructive disease in the other 2 vessels. Patient is being discharged in thehospital in good condition to follow- up with Dr. Arechiga in the following weeks. Aggressive risk factor modification is recommended including blood pressure management, diabetes management as well as tobacco cessation, all these issues were discussed in great detail with the patient. All questions were answered to his satisfaction. Only 60 cc of contrast material was utilized for the procedure. Avoidance of radial approach for the future based on his renal dysfunction is recommended. DISCHARGE MEDICATIONS: Medication List CONTINUE taking these medications Morning Afternoon Evening Bedtime As Needed ALPRAZolam 0.5 MG tablet Commonly known as: XANAX Take 0.5 mg by mouth nightly as needed. at bedtime. atorvastatin 80 MG tablet Commonly known as: Lipitor Take 1 tablet (80 mg total) by mouth every evening. carvedilol 25 MG tablet Commonly known as: COREG Take 1 tablet (25 mg total) by mouth 2 (two) times daily. clopidogrel 75 MG tablet Commonly known as: PLAVIX TAKE 1 TABLET(75 MG) BY MOUTH DAILY HumaLOG 100 UNIT/ML injection (VIAL) Inject into the skin see administration instructions. Generic drug: insulin lispro isosorbide mononitrate ER 30 MG 24 hr tablet Commonly known as: IMDUR Take 1 tablet (30 mg total) by mouth every morning. nitroglycerin 0.4 MG SL tablet Commonly known as: NITROSTAT Place 1 tablet (0.4 mg total) under the tongue every 5 (five) minutes as needed for Chest Pain. Maximum of 3 doses. Norvasc 10 MG tablet Take 10 mg by mouth daily. Generic drug: amLODIPine pantoprazole EC 40 MG tablet Commonly known as: PROTONIX Take 40 mg by mouth 2 (two) times daily. venlafaxine XR 75 MG 24 hr capsule Commonly known as: EFFEXOR-XR Take 150 mg by mouth daily. vitamin D2 (ergocalciferol) 12957 UNITS capsule Commonly known as: DRISDOL Take 50,000 Units by mouth once a week. FOLLOW UP: Follow up with Dr. Arechiga in 4 weeks. Signed Tete Hollis MD, [facility] 0:22 AM Cc: DENNIS CRUMP MD.pcp documented in this encounter Discharge Instructions * Discharge Instructions* Ana Russell RN - 01/09/2022 10:53 AM CDT Due to the sedation you received today, (for 24 hours) please do not: -Sign any legal documents or make any important decisions -Drink alcohol or take medication intended to make you sleep -Drive a car or operate any hazardous machinery Post Catheterization Discharge - Radial Approach 1. Do not bend wrist for 48 hours. Avoid using your wrist when standing out of a chair. 2. Drink 3-4 glasses of water over the next 8 hours and resume routine diet. 3. A medication list and instructions have been provided separately. 4. Do not drive for 48 hours after procedure. 5. No lifting more than 5 pounds and no exercise (including golf and tennis) for 2-3 days. 6 Do not operate equipment, such as an ATV, automotive machinist, chainsaw, or motorcycle for 48 hours. 7. Notify your motor setter of swelling or drainage at the site, or numbness, tingling, coldness, or cramping in hand/arm during rest or activity. Soreness is normal. Take Tylenol for pain. 8. Notify your motor setter or your primary care physician if you develop a fever greater than 101 degrees. 9. If the site begins to bleed, sit down and hold firm pressure for 10 minutes directly to the site. If bleeding stops, continue to sit, keeping wrist straight and contact physician as soon as possible. If bleeding does not stop, call 911 immediately. 10. Remove dressing 24 hours after the procedure. You may shower the next day. Do not scrub the site or apply direct water to area. Do not submerge in water for 7 days. No dishes in the sink. Pat thesite dry, but do not rub! 11. If you experience any problems, please call your primary care physician or your motor setter [phone]. documented in this encounter Medications at Time of Discharge [...] Take 150 mg by mouth daily. 12/07/2021 atorvastatin (LIPITOR) 80 MG tablet Take 1 tablet (80 mg total) by mouth every evening. 90 tablet 1 11/08/2021 05/11/20 22 carvedilol 25 MG tablet Take 1 tablet (25 mg total) by mouth 2 (two) times daily. 60 tablet 11 05/04/2017 11/06/19 24 CLOPIDOGREL 75 MG tablet TAKE 1 TABLET(75 MG) BY MOUTH DAILY 90 tablet 3 06/28/2021 06/26/20 22 isosorbide mononitrate ER 30 MG 24 hr tablet Take 1 tablet (30 mg total) by mouth every morning. 90 tablet 1 12/02/2021 05/12/20 22 nitroglycerin 0.[address] 1 tablet (0.4 mg total) under the tongue every 5 (five) minutes as needed for Chest Pain. Maximum of 3 doses. 30 tablet 1 11/02/2021 06/04/20 24 vitamin D2, ergocalciferol, 90587 UNITS capsule Take 50,000 Units by mouth once a week. 10/28/2021 06/11/20 24 documented as of this encounter H&P Notes * Tete Hollis MD - 01/09/2022 8:05 AM CDT HISTORY AND PHYSICAL INTERVAL NOTE: Risks, benefits and alternatives of cardiac catheterization were discussed with the patient and/or family member/personal training representative including but not limited to bleeding, arrhythmias, allergic reactions to medications/contrast, acute renal failure which may require dialysis, acute myocardial infarction, emergency coronary bypass surgery, stroke and . Questions were answered to the patient/family/personal training representative. Patient agreed to proceed. Procedure will be performed using a transradial approach. Need for common femoral access in less than 5% of cases as well as vascular complications including spasm, vessel closure in less than 3% of cases and arm pain in less than 0.3% of procedures was discussed with patient. Source Note - Dieter Wade MD - 12/20/2021 10:30 AM TRAINING PROJECT MANAGER Reason for Visit: Follow Up (CAD) History of Present Illness: I had the pleasure of seeing Tank Kowalski in cardiology clinic followup. Mr. Kowalski is a 46-year-old male with CAD status post PCI with recent anginal complaints and stress test. The stress test showed evidence of partially reversible ischemia in the circumflex territory as well as fixed defect in the right coronary territory. We placed him on Imdur in addition to his prior amlodipine and carvedilol. He has continued to have some angina although it has improved. Hehas had a couple of times where he is had chest pain consistent with angina at night when he gets up to go to the bathroom. He also has had some exertional chest pain. He denies the chest pain radiates to the left neck area. There is no presyncope syncope TIA stroke claudication or congestive heartfailure complaints. Recommendations and Plan: He continues to have anginal complaints despite 3 antianginal agents and I reviewed that on his last catheterization there was no significant circumflex or right coronary disease in 2018. I am concerned given his persistent symptoms on optimal medical therapy that he has developed circumflex and/or dominant right coronary disease. He does feel that he still does not havegood anginal control and is not happy with his quality of life. We discussed consideration of cardiac catheterization possible stent placement.I reviewed the risks, benefits and alternatives of the procedure with Mr. Kowalski including the risks of mortality, CO, CVA, bleeding, infection, vascular comp lications and kidney failure. Mr. Kowalski elects to proceed. All questions answered. I also counseledpatient to stop smoking completely. He would like to stop and is planning on considering acupuncture. We will also remind him to get his lipid drawn as ordered in December to make sure he is at goal LDLreduction. Medications: Current Outpatient Medications: ??? ALPRAZolam 0.5 MG tablet, Take 0.5 mg by mouth nightly as needed. at bedtime., Disp: , Rfl: ??? amlodipine (NORVASC) 10 MG tablet, Take 10 mg by mouth daily. , Disp: , Rfl: ??? atorvastatin (LIPITOR) 80 MG tablet, Take 1 tablet (80 mg total) by mouth every evening., Disp:90 tablet, Rfl: 1 ??? carvedilol 25 MG tablet, Take 1 tablet (25 mg total) by mouth 2 (two) times daily., Disp: 60 tablet, Rfl: 11 ??? CLOPIDOGREL 75 MG tablet, TAKE 1 TABLET(75 MG) BY MOUTH DAILY, Disp: 90 tablet, Rfl: 3 ??? insulin lispro (HUMALOG) 100 UNIT/ML injection (VIAL), Humalog; per pump; 0; 11-Feb-2014; Active, Disp: , Rfl: ??? isosorbide mononitrate ER 30 MG 24 hr tablet, Take 1 tablet (30 mg total) by mouth every morning., Disp: 90 tablet, Rfl: 1 ??? nitroglycerin 0.4 MG SL tablet, Place 1 tablet (0.4 mg total) under the tongue every 5 (five) minutes as needed for Chest Pain. Maximum of 3 doses., Disp: 30 tablet, Rfl: 1 ??? pantoprazole EC 40 MG tablet, Take 40 mg by mouth 2 (two) times daily., Disp: , Rfl: ??? venlafaxine XR 75 MG 24 hr capsule, Take 150 mg by mouth daily., Disp: , Rfl: ??? vitamin D2, ergocalciferol, 68887 UNITS capsule, Take 50,000 Units by mouth once a week., Disp:, Rfl: Allergies Allergen Reactions ??? Guaifenesin Swelling ??? Simvastatin Myalgias Past Medical History: Diagnosis Date ??? CAD (coronary artery disease) ??? Colitis ??? CVA (cerebral vascular accident) (CMS/HCC) 2009 ??? Diabetes (CMS/HCC) ??? Diabetic retinopathy (CMS/HCC) ??? GERD (gastroesophageal reflux disease) ??? History of coronary artery stent placement 2013 ??? Hyperlipidemia ??? Hypertension ??? Lumbago ??? Personal history of MRSA (methicillin resistant Staphylococcus aureus) MRSA abscess on the face(negative cultures in 2013) Past Surgical History: Procedure Laterality Date ??? HEART CATH 02/20/2014 Cardiac Cath ??? HEART CATH 05/22/2018 ??? HEART CATH 2014 ??? SKIN BIOPSY ??? TONSILLECTOMY ??? XA CORONARY INTERVENTION 02/24/2014 MARTHA to the proximal LAD Social History Tobacco Use ??? Smoking status: Current Every Day Smoker Packs/day: 1.50 Types: Cigarettes ??? Smokeless tobacco: Never Used Substance Use Topics ??? Alcohol use: Yes Comment: 4-6 weekly ??? Drug use: No Family History Problem Relation Name Age of Onset ??? Stent Mother 45 stents ??? Heart Attack Mother ??? Valve Disease Sister Valve problem ??? Coronary artery disease Other Family Status Relation Name Status ??? Mother Alive ??? Sister Alive ??? Other Other Family history is positive for: ??? Father Alive ??? Brother Alive Review of Systems Constitutional: Negative for recent unintentional weight gain, recent unintentional weight loss andnew or significant fatigue. HENT: Negative for new or significant hearing loss. Eyes: Negative for blurred vision and double vision. Respiratory: Negative for cough, new or significant shortness of breath and snoring. Cardiovascular: See HPI. Gastrointestinal: Negative for blood in stool and melena. Genitourinary: Negative for dysuria. Musculoskeletal: Negative for myalgias and new or worsening joint stiffness/pain. Skin: Negative for rash. Neurological: Negative for tingling/numbness and focal weakness. Endo/Heme/Allergies: Negative for new or significant bruising/bleeding and polydipsia. Psychiatric/Behavioral: Negative for depression and new or significant memory loss. Vitals: 12/20/21 1028 BP: 110/60 Patient Position: Sitting BP Location: Left arm Pulse: 70 Weight: 89.6 kg (197 lb 9.6 oz) Height: 5' 11 (1.803 m) Body mass index is 27.56 kg/m??. Cardiac Exam Rate/Rhythm: Normal rate and regular rhythm. PMI: PMI is not displaced. Pulses: Intact distal pulses. Carotid pulses are 2+ on the right side and 2+ on the left side. Heart Sounds: Normal heart sounds. Normal S1 sounds. Normal S2 sounds. Murmurs: Comments: Physical Exam Constitutional: No distress. HENT: Wearing a mask . Eyes: Conjunctivae normal. Neck: Neck supple. No JVD. Abdomen: Abdomen soft. Bowel sounds normal. No tenderness. Abdominal aorta not palpably enlarged. No abdominal bruit present. Pulmonary: Effort normal. Breath sounds normal. Skin: Dry. Warm. No pallor. No cyanosis. Musculoskeletal: No kyphosis. Neurological: Alert. Oriented x 3. Appropriate mood and affect. Comments: Diagnoses/Impression: 1. Coronary artery disease involving teller coronary artery of teller heart without angina pectoris 2. Primary hypertension 3. Hyperlipidemia, unspecified hyperlipidemia type 4. Tobacco use Referring Provider: Dennis Crump MD PCP: DENNIS CRUMP MD NING PROJECT MANAGER documented in this encounter Procedure Notes * Tete Hollis MD - 01/09/2022 10:12 AM CDT Oral Surgery Physician Post-Procedural Documentation CARBON PASTE MIXER OPERATOR: Tete Hollis MD, [facility] INDICATION: Abnormal nuclear stress test PROCEDURE: Left heart catheterization BLOOD LOSS: Clinically insignificant. POST PROCEDURE FINDINGS: Coronaries: Dominance: right dominant LMCA: Normal LAD: proximal patent stent, mid luminal irregularities and distal luminal irregularities. D3 shows an ostial 60% stenosis. LCx: Diffuse mild non-obstructive coronary artery disease RCA: proximal luminal irregularities, mid 50-60% tubular stenosis and distal luminal irregularities CONCLUSION: Non obstructive coronary artery disease. PLAN: Routine post intervention care. Medical therapy recommended. Aggresive risk factor mofidication. Tete Hollis MD, [facility] January 09, 2022 documented in this encounter Plan of Treatment Not on file documented as of this encounter Procedures Procedure Name Priority Date/Time Associated Diagnosis Comments XA C POSS Routine 01/09/2022 10:12 AM CDT Abnormal cardiovascular stress test ECG 12-LEAD STAT 01/09/2022 7:31 AM CDT documented in this encounter Results * [facility] POSS (01/09/2022 10:12 AM CDT) Anatomical Region Laterality Modality Cardiac Oral Surgery Physician 01/09/2022 9:30 AM CDT us Tete Hollis MD CEO AND CO FOUNDER Final Result * ECG 12 lead (01/09/2022 7:31 AM CDT) 01/09/2022 7:[address] [facility] - 01/09/2022 4:32 PM CDT ? [facility] ?[address], [place] ??[address] ? Test Date: ?2022-01-09 Pat Name: ? TANK KOWALSKI ?Department: ? Room: ? [id number] Gender: ? Male ? All Purpose Clerk: ?? : ?1975 ? Requested By: TETE HOLLIS Order Number: [id number] ? Reading : ?? Abbie Wilson ? Measurements Intervals ?[place] ? Rate: ? 70 ? P: ?22 [place]: ? 144 ?QRS: ?-11 QRSD: ? 98 ? T: ?41 QT: ? 403 ? QTc: ?435 ? Interpretive Statements SINUS RHYTHM Procedure Note Abbie Wilson MD - 01/09/2022 [facility] [address] [place] [address] Test Date: 2022-01-09 Pat Name: TANK KOWALSKI Department: Room: [id number] Gender: Male All Purpose Clerk: Errol : 1975 Requested By: TETE HOLLIS Order Number: [id number] Reading MD: Abbie Wilson Measurements Intervals [place] Rate: 70 P: 22 [place]: 144 QRS: -11 QRSD: 98 T: 41 QT: 403 QTc: 435 Interpretive Statements SINUS RHYTHM us Tete Hollis MD ECG ORDERABLES Final Result [facility] documented in this encounter Visit Diagnoses Diagnosis Abnormal cardiovascular stress test Other nonspecific abnormal cardiovascular system function study documented in this encounter Active and Recently Administered Medications Times are shown in CDT. Scheduled Medication Order 01/07/2022 01/08/2022 01/09/2022 sodium chloride 0.9% infusion at 100 mL/hr, Intravenous, Once, 1 dose, On 01/09/22 at 0730, Pre-Op 0730 (Canceled Entry - Provider: Automatic Discharge Provider - Comment: Automatically canceled at discontinue of medication order) documented in this encounter Care Teams Generator Repairer Relationship Specialty Start Date End Date Dennis Crump MD PCP - General INTERNAL MEDICINE 02/28/17 10/23/23 Joann Marquez, ANP-BC [address] [facility] [address] [place] [id number] [place] Mother Repairer NURSE PRACTITIONER 02/28/17 documented as of this encounter
--- OUTSIDE RECORDS SUMMARY | 2024-10-26 08:20 | XMS_ITS | Encounter Summary ---
Author Organization [facility] - [facility] Address [facility]. 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 Not on file Not on file Not on file Not on file Not on file Not on file documented as of this encounter Plan of Treatment Not on file documented as of this encounter Procedures Procedure Name Priority Date/Time Associated Diagnosis Comments OUTSIDE LAB (SCAN ORDER) Routine 10/17/2021 documented in this encounter Results * OUTSIDE LAB (SCAN) (10/17/2021) 10/17/2021 us Documents Scanned SCANNING Final Result [facility] documented in this encounter Visit Diagnoses Not on filedocumented in this encounter Care Teams Fire Pot Operator Relationship Specialty Start Date End Date Dennis Doran MD PCP - General INTERNAL MEDICINE 02/28/17 10/23/23 Joann Marquez ANP- [address] [facility] [address] [place] [address] [place] Delivery Technician NURSE PRACTITIONER 02/28/17 documented as of this encounter
--- OUTSIDE RECORDS SUMMARY | 2024-10-26 08:20 | XMS_ITS | Encounter Summary ---
Author Organization [facility] Address [address] [place] [address]. [place], [place] [address] [place] [address] Care Team Providers Care Program Director Substance Abuse Name Role Phone Dennis Crump MD Primary Care Provider [phone] Joann Marquez [facility]- Unavailable [phone] Reason for Visit * Reason Comments Follow Up CAD Encounter Details Date Type Department Care Team (Late st Contact Info) Description 04/03/2022 9:00 AM CDT Office Visit [facility] [address] Dieter Arechiga MD [address] [place] [address] Follow Up (CAD) Social History Tobacco Use Types Packs/Day Years [...] 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 No / Unsure 04/02/2022 9:07 AM CDT documented as of this encounter Last Filed Vital Signs Vital Sign Reading Time Taken Comments Blood Pressure 134/78 04/03/2022 9:08 AM CDT Pulse 77 04/03/2022 9:05 AM CDT Temperature - - Respiratory Rate 16 04/03/2022 9:05 AM CDT Oxygen Saturation 96% 04/03/2022 9:05 AM CDT Inhaled Oxygen Concentration - - Weight 90.5 kg (199 lb 9.6 oz) 04/03/2022 9:05 A M CDT Height 180.3 cm (5' 11 ) 04/03/2022 9:05 AM CDT Body Mass Index 27.84 04/03/2022 9:05 AM CDT documented in this encounter Progress Notes * Dieter Wade MD - 04/03/2022 9:00 AM CDT Reason for Visit: Follow Up (CAD) Medications: Current Outpatient Medications: ??? ALPRAZolam 0.5 [...] tablet, TAKE 1 TABLET(75 MG) BY MOUTH DAILY (Patient taking differently: Take75 mg by mouth daily. ), Disp: 90 tablet, Rfl: 3 ??? insulin lispro (HUMALOG) 100 UNIT/ML injection (VIAL), Inject into the skin see administration instructions. , Disp: , Rfl: ??? isosorbide mononitrate ER [...] Disp: , Rfl: ??? vitamin D2, ergocalciferol, 77058 UNITS capsule, Take 50,000 Units by mouth once a week., Disp:, Rfl: Allergies Allergen Reactions ??? Guaifenesin Swelling ??? Simvastatin Myalgias Past Medical History: Diagnosis Date ??? CAD (coronary artery disease) ??? CKD (chronic kidney disease) ??? Colitis ??? CVA (cerebral vascular [...] INTERVENTION 02/24/2014 MARTHA to the proximal LAD ??? XA LHC POSS 01/09/2022 Social History Tobacco Use ??? Smoking status: [...] ??? Brother Alive Review of Systems Constitutional: Positive for fatigue. Negative for recent unintentional weight gain and recent unintentional weight loss. HENT: Negative for new or significant hearing loss. Eyes: Negative for blurred vision and double vision. Respiratory: Negative for cough, new or significant shortness of breath and snoring. Cardiovascular: See HPI. Positive for leg swelling. Gastrointestinal: Positive for heartburn. Negative for blood in stool and melena. Genitourinary: Negative for dysuria. Musculoskeletal: Negative for myalgias and new or worsening joint stiffness/pain. Reports leg pain Skin: Negative for rash. Neurological: Negative for tingling/numbness and focal weakness. Endo/Heme/Allergies: Negative for new or significant bruising/bleeding and polydipsia. Psychiatric/Behavioral: Negative for depression and new or significant memory loss. Vitals: 04/03/22 0905 04/03/22 0908 BP: 128/72 134/78 Patient Position: Sitting Sitting BP Location: Left arm Right arm Pulse: 77 Weight: 90.5 kg (199 lb 9.6 oz) Height: 5' 11 (1.803 m) Body mass index is 27.84 kg/m??. Cardiac Exam Rate/Rhythm: Normal rate and [...] x 3. Appropriate mood and affect. Comments: The documentation for the above exam was created using a template entered by ancillary staff however the physical exam was completed entirely by the provider responsible for this visit. Thephysical exam documentation was reviewed and modified by the provider to reflect his/her findings. Diagnoses/Impression: 1. Coronary artery disease involving tazlina coronary artery of tazlina heart without angina pectoris 2. Primary hypertension 3. Hyperlipidemia, unspecified hyperlipidemia type LIPID PANEL Referring Provider: Dennis Crump MD PCP: DENNIS CRUMP MD * Dieter Wade MD - 04/03/2022 9:00 AM CDT I had the pleasure of seeing Tank Kowalski in followup of his coronary artery disease 3 months after her catheterization, which showed patent stent sites with no severe obstructive disease. He had been having some chest pain and shortness of breath after recovering from COVID. His symptoms have nowresolved. He is trying to stop smoking and is going to see an acupuncture specialist next week. Hisblood pressure has been controlled. There is no TIA, stroke, claudication, or syncope. At this time, he appears clinically stable from the standpoint of his coronary disease on medical therapy. His blood pressure is controlled. He is on full dose Atorvastatin. I did see that there has not been a lipid profile drawn in our records for over a year. We will have a lipid profile added tohis next week's lab work for his rubber goods tester water. We will plan on 1 year followup or earlier if theneed arises. documented in this encounter Plan of Treatment Not on file documented as of this encounter Results * (ABNORMAL) LIPID PANEL (04/26/2022) Pathologist [facility] CHOLESTEROL 280(A) 0 - 200 HDL 36(A) >=40 TRIGLYCERIDES 776(A) 0 - 150 LDL (CALCULATED) Comment:unable to calculate 04/26/2022 Dieter Wade MD LABORATORY Final Result documented in this encounter Visit Diagnoses Diagnosis Coronary artery disease involving tazlina coronary artery of tazlina heart without angina pectoris- Primary Primary hypertension Unspecified essential hypertension Hyperlipidemia, unspecified hyperlipidemia type documented in this encounter Care Teams Program Director Substance Abuse Relationship Specialty Start Date End Date Dennis Crump MD PCP - General INTERNAL MEDICINE 02/28/17 10/23/23 Joann Marquez ANP- [address] [facility] [address] [place] [address] Bethany Dev Manager NURSE PRACTITIONER 02/28/17 documented as of this encounter
--- OUTSIDE RECORDS SUMMARY | 2024-10-26 08:20 | XMS_ITS | Encounter Summary ---
Author Organization [facility] Address [address] [place] [address]. 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 No / Unsure 01/06/2022 10:58 AM CDT documented as of this encounter Plan of Treatment Not on file documented as of this encounter Visit Diagnoses Not on filedocumented in this encounter Additional Health Concerns Infection Onset Date Last Indicated Resolved Time COVID-19 Rule Out 01/06/2022 01/06/2022 01/07/2022 2:32 PM CDT documented as of this encounter Care Teams Brand Coordinator Relationship Specialty Start Date End Date Dennis Doran MD PCP - General INTERNAL MEDICINE 02/28/17 10/23/23 Joann Marquez, AURELINAO- [address] [facility] [address] [place] [address] Basile Closing Coordinator NURSE PRACTITIONER 02/28/17 documented as of this encounter
--- OUTSIDE RECORDS SUMMARY | 2024-10-26 08:20 | XMS_ITS | Encounter Summary ---
Author Organization [facility] Address [address] [place] [address]. 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 No / Unsure 01/06/2022 10:58 AM CDT documented as of this encounter Medications at [...] 1 11/02/2021 06/04/20 24 vitamin D2, ergocalciferol, [address]1501 UNITS capsule Take 50,000 Units by mouth once a week. 10/28/2021 06/11/20 24 documented as of this encounter Plan of Treatment Not on file documented as of this encounter Procedures Procedure Name Priority Date/Time Associated Diagnosis Comments CORONAVIRUS (COVID 19) Routine 01/06/2022 11:51 AM CDT Pre-operative laboratory examination BASIC METABOLIC PANEL Routine 01/06/2022 11:51 AM CDT Abnormal cardiovascular stress test CBC, AUTO, NO DIFF Routine 01/06/2022 11 :51 AM CDT Abnormal cardiovascular stress test documented in this encounter Results * PRE-SURGICAL/PRE-PROCEDURE CORONAVIRUS (COVID 19) (01/06/2022 11:51 AM CDT) SPEC DESCRIPTION NASAL 01/07/20 11:48 AM CDT [facility] CORONAVIRUS SARS COV 2 PCR (RESP) NEGATIVE NEGATIVE 01/07/2022 2:32 PM CDT [facility] Comment: THE SARS-CoV-2 TEST HAS BEEN AUTHORIZED BY THE FDA UNDER AN EUA FOR USE BY AUTHORIZED LABORATORIES. PERFORMED BY NUCLEIC ACID AMPLIFICATION PCR FIRST TEST UNKNOWN 01/06/2022 11:48 AM CDT [facility] EMPLOYED IN HEALTHCARE NO 01/06/2022 11:48 AM CDT [facility] SYMPTOMATIC DEFINED BY CDC UNKNOWN 01/06/2022 11:48 AM CDT [facility] HOSPITALIZATION STATUS NO 01/06/2022 11:48 AM CDT [facility] RESIDENT OF [facility] NO 01/06/2022 11:48 AM CDT [facility] NASAL STRUCTURE / Unknown 01/06/2022 11:51 AM CDT Nima Hollis MD MICROBIOLOGY - GENERAL ORDERAB LES Final Result [facility] [address] [place] [address], [facility] [address] [place] [address], * (ABNORMAL) BASIC METABOLIC PANEL (01/06/2022 11:51 AM CDT) GLUCOSE 157(H) 70 - 99 MG/DL 01/06/2022 12:21 PM CDT [facility] BUN 38(H) 7 - 18 MG/DL 01/06/2022 12:21 PM CDT [facility] CREATININE S/P/B 2.29(H) 0.50 - 1.20 MG/DL 01/06/2022 12:21 PM CDT [facility] SODIUM S/P/B 137 136 - 145 MMOL/L 01/06/2022 12:21 PM CDT [facility] POTASSIUM S/P/B 4.6 3.5 - 5.1 MMOL/L 01/06/2022 12:21 PM CDT [facility] CHLORIDE S/P/B 106 100 - 108 MMOL/L 01/06/2022 12:21 PM CDT [facility] CO2 20.8(L) 21.0 - 32.0 MMOL/L 01/06/2022 12:21 PM CDT [facility] CALCIUM S/P/B 8.5 8.5 - 10.1 MG/DL 01/06/2022 12:21 PM CDT [facility] ANION GAP 10.2 5.0 - 15.0 MMOL/L 01/06/2022 12:21 PM CDT [facility] BUN CREATININE RATIO 16.6 6 - 26 01/06/2022 12:21 PM CDT [facility] EGFR NON-AFR. AMER. 33(L) >90 ML/MIN/1.7 3 M2 01/06/2022 12:21 PM T [facility] EGFR AFR. AMER. 38(L) >90 ML/MIN/1.7 3 M2 01/06/2022 12:21 PM CDT [facility] Comment: NOTE: eGFR is not calculated for patients <18 years of age. This is an estimated GFR (CKD EPI) and should not be used for calculating drug doses. 01/06/2022 11:5 1 AM CDT us Nima Hollis MD LABORATORY Final Result [address] [place] [address], [place] * (ABNORMAL) CBC, AUTO, NO DIFF (01/06/2022 11:51 AM CDT) WBC 8.1 4.5 - 11.0 x10'3/uL 01/06/2022 12:25 PM CDT [facility] RBC 4.16(L) 4.5 - 5.9 x10'6/uL 01/06/2022 12:25 PM CDT [facility] HGB 12.6 12.0 - 16.0 G/DL 01/06/2022 12:25 PM CDT [facility] HCT 37.4 37.0 - 49.0 % 01/06/2022 12:25 PM CDT [facility] MCV 89.9 80.0 - 100.0 FL 01/06/2022 12:25 PM CDT [facility] MCH 30.3 26.0 - 34.0 PG 01/06/2022 12:25 PM CDT [facility] MCHC 33.7 31.0 - 37.0 G/DL 01/06/2022 12:25 PM CDT [facility] RDW 13.4 11.6 - 14.8 % 01/06/2022 12:25 PM CDT [facility] PLT 191 140 - 415 x10'3/uL 01/06/2022 12:25 PM CDT [facility] MPV 11.3 7.0 - 12.0 FL 01/06/2022 12:25 PM CDT [facility] 01/06/2022 11:5 1 AM CDT us Nima Hollis MD LABORATORY Final Result [facility] [address] [place] [address] [place] [address], [place] documented in this encounter Visit Diagnoses Diagnosis Abnormal cardiovascular stress test Other nonspecific abnormal cardiovascular system function study Pre-operative laboratory examination Pre-procedural laboratory examination documented in this encounter Additional Health Concerns Infection Onset Date Last Indicated Resolved Time COVID-19 Rule Out 01/06/2022 01/06/2022 01/07/2022 2:32 PM CDT documented as of this encounter Care Teams Maintainer Sewer And Waterworks Relationship Specialty Start Date End Date Dennis Doran MD PCP - General INTERNAL MEDICINE 02/28/17 10/23/23 Joann Marquez, ANP- [address] [facility] [address] [place] [address] [place] Director Of Community Services NURSE PRACTITIONER 02/28/17 documented as of this encounter
--- OUTSIDE RECORDS SUMMARY | 2024-10-26 08:20 | XMS_ITS | Encounter Summary ---
Author Organization [facility] Address [facility]6 [facility]. 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 Not on file Not on file Not on file Not on file Not on file Not on file documented as of this encounter Plan of Treatment Not on file documented as of this encounter Procedures Procedure Name Priority Date/Time Associated Diagnosis Comments OUTSIDE LAB (SCAN ORDER) Routine 09/20/2021 documented in this encounter Results * OUTSIDE LAB (SCAN) (09/20/2021) 09/20/2021 us Documents Scanned SCANNING Final Result [facility] documented in this encounter Visit Diagnoses Not on filedocumented in this encounter Care Teams Branner Machine Tender Relationship Specialty Start Date End Date Dennis Doran MD PCP - General INTERNAL MEDICINE 02/28/17 10/23/23 Joann Marquez ANP- [address] [facility] [address] [place] [address] [place] Work Distributor NURSE PRACTITIONER 02/28/17 documented as of this encounter
--- OUTSIDE RECORDS SUMMARY | 2024-10-26 08:20 | XMS_ITS | Encounter Summary ---
Author Organization [facility] Address [address] [place] [address]. 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 No / Unsure 01/13/2022 8:16 AM CDT documented as of this encounter Plan of Treatment Not on file documented as of this encounter Visit Diagnoses Not on filedocumented in this encounter Care Teams Retail Assistant Store Manager Relationship Specialty Start Date End Date Dennis Doran MD PCP - General INTERNAL MEDICINE 02/28/17 10/23/23 Joann Marquez, ANP- [address] [facility] [address] [place] [address] [place] Catalyst Impregnator NURSE PRACTITIONER 02/28/17 documented as of this encounter
--- OUTSIDE RECORDS SUMMARY | 2024-10-26 08:20 | XMS_ITS | Encounter Summary ---
Author Organization [facility] Address [facility] 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 No answer, left a voicemail. documented in this encounter Plan of Treatment Not on file documented as of this encounter Visit Diagnoses Not on filedocumented in this encounter Care Teams Golf Course Laborer Relationship Specialty Start Date End Date Dennis Doran MD PCP - General INTERNAL MEDICINE 02/28/17 10/23/23 Joann Marquez, ANP- [address] [address] [place] Director Of Marketing Google Performance Ads NURSE PRACTITIONER 02/28/17 documented as of this encounter
--- OUTSIDE RECORDS SUMMARY | 2024-10-26 08:20 | XMS_ITS | Encounter Summary ---
Author Organization [facility] Address [address] [place] [address]. [place], [place] [address] [place] [address] Care Team Providers Care Spinning Lathe Operator Name Role Phone Dennis Doran MD Primary Care Provider [phone] Joann Marquez [facility]- Unavailable [phone] Reason for Visit * Reason Onset Date Comments Medication Information 05/29/2022 Encounter Details Date Type Department Care Team (Late st Contact Info) Description 05/29/2022 Telephone [facility] [address] [place] [address] Dieter Arechiga MD [address] [address] Medication Information Social History Tobacco Use Types Packs/Day Years [...] 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 I see he was to have repeat labs as directed by Dr. Arechiga ~8 weeks after starting Vascepa. Please follow up with pt to see if he had his lipids rechecked as advised. If the labs were note done yet then he will need order for lipid profile with direct LDL, ast. See Dr. Arechiga note 05/05/22. ECTIONS PROFESSIONAL ECTIONS PROFESSIONAL * Kelsey Kirby LPN - 05/30/2022 2:07 PM CDT Called and spoke to pt, aware Vascepa was approved and pharmacy is aware. He agrees. * Kelsey Kirby LPN - 05/29/2022 2:01 PM CDT Received fax from [facility] after Dr Arechiga did appeal and Vascepa approved from 05/28/22 to 05/28/23 Called pharmacy and they are aware and it went thru. Pt cost is $10.00 Left message for pt to call office. (let him know vascepa approved and can corn picker at pharmacy) documented in this encounter Plan of Treatment Not on file documented as of this encounter Visit Diagnoses Diagnosis Hyperlipidemia, unspecified hyperlipidemia type- Primary documented in this encounter Care Teams Spinning Lathe Operator Relationship Specialty Start Date End Date Dennis Doran MD PCP - General INTERNAL MEDICINE 02/28/17 10/23/23 Joann Marquez ANP- [address] [facility] [address] [place] [address] [place] Seafood Specialist NURSE PRACTITIONER 02/28/17 documented as of this encounter
--- OUTSIDE RECORDS SUMMARY | 2024-10-26 08:20 | XMS_ITS | Encounter Summary ---
Author Organization [facility] Address [facility]6 [facility]. 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
--- OUTSIDE RECORDS SUMMARY | 2024-10-26 08:20 | XMS_ITS | Encounter Summary ---
Author Organization [facility] Address [facility] [place] [address] [place] [address] Care Team Providers Care Obstetrics/Gynecology Nurse Name Role Phone Dennis Doran MD Primary Care Provider [phone] Joann Marquez Unavailable [phone] Reason for Visit * Reason Onset Date Comments Problem 10/27/2021 Encounter Details Date Type Department Care Team ([facility] st Contact Info) Description 10/27/2021 [facility]phone [place] [facility] [address] [place] [address] Joann Marquez ANP-BC [address] [facility] [address] [place] [address] Problem Social History Tobacco Use Types Packs/Day Years [...] 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 EKG shows sinus rhythm with septal ID and poor r wave progression. This appears similar to previous EKG 01/2021. Pt has been seeing for multiple visits with PCP in past month. He reports for 2-3 weeks he has had intermittent chest pain bilaterally. It did not escalate with activity and would last for hours. It would not change with activity and feels different to him than his previous angina. Sometimes he gets pain in both arms. On Sunday he didn't feel well. He startedto go to work and went back home. He felt all over body ache, fatigue, malaise. He had chest pain like he has been having then experienced new onset of heaviness in his chest. He took a total of 3 NTG and after ~45 minutes the pain/heaviness resolved. That night he was diaphoretic in bed. He doesn't think he has had a fever. He notes nasal/sinus congestion and has Covid test pending. He reports his chest pain has not recurred since Sunday10/25/21. He is not vaccinated against Covid 19 or influenza. His chest pain has had some atypical features and now has not recurred for the past 2 days. He describes URI symptoms. He would like to keep his appt as planned on 11/08. Offered if Covid negative and he wants to be seen sooner can see if partner can work in sooner in [place]. He declined offer to move up appt. He was cautioned if recurrent chest pain not relieved with 1-2 NTG or escalating symptoms to present to his local ER for urgent evaluation. If he develops fever or worsening infectious symptoms to contact primary or seek prompt evaluation. He continues to smoke. He was advised to quit smoking. He was also advised if he is covid negative and once feeling better to get vaccinated against Covid 19. He said he talked to his primary as welland thinks he will get vaccinated once he feels better. He voiced understanding of recommendations. LINE WORKER LINE WORKER * Adilson Lund RN - 10/27/2021 11:13 AM CST Received records from PCP. They are being scanned in. Pt saw PCP in September LINE WORKER LINE WORKER * Adilson Lund RN - 10/27/2021 9:28 AM CST Pt called, sts he has been having chest pain, using nitro with relief for the past couple of weeks.He saw PCP who did ECG and was told it was abnormal. They faxed to [facility] office. He wants appt with either Joann or Dr. Arechiga. Scheduled on 11/08/21 at 0830, PHI with Parish Marquez. Offered to day at 1100, but he needs to find someone to drive him and it is 1[place]hours from [place]. Advised I will watch for cancellations upcoming for him to get in sooner. Instructed him to go to ER if 3 nitro do not relieve the chest pain LINE WORKER LINE WORKER documented in this encounter Plan of Treatment Not on file documented as of this encounter Visit Diagnoses Not on filedocumented in this encounter Care Teams Obstetrics/Gynecology Nurse Relationship Specialty Start Date End Date Dennis Doran MD PCP - General INTERNAL MEDICINE 02/28/17 10/23/23 Joann Marquez, ANP- [address] [facility] [address] [place] [address] [place] Track Vehicle Repairer NURSE PRACTITIONER 02/28/17 documented as of this encounter
--- OUTSIDE RECORDS SUMMARY | 2024-10-26 08:20 | XMS_ITS | Encounter Summary ---
Author Organization [facility] Address [address] [place] [address]. [place] [address] [place] [address] Care Team Providers Care Hourly Team Members Name Role Phone Dennis Crump MD Primary Care Provider [phone] Joann Marquez Unavailable [phone] Reason for Visit * Reason Comments Follow Up Encounter Details Date Type Department Care Team ([facility] st Contact Info) Description 11/08/2021 8:30 AM RF DESIGN ENGINEER Office Visit [facility] [address] [place] [phone] Joann Marquez ANP-BC [address] [facility] [address] [place] [phone] Follow Up Social History Tobacco Use Types [...] 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 Yes 11/07/2021 3:01 PM RF DESIGN ENGINEER documented as of this encounter Last Filed Vital Signs Vital Sign Reading Time Taken Comments Blood Pressure 126/78 11/08/2021 8:30 AM RF DESIGN ENGINEER Pulse 80 11/08/2021 8:27 AM RF DESIGN ENGINEER Temperature - - Respiratory Rate 22 11/08/2021 8:27 AM RF DESIGN ENGINEER Oxygen Saturation - - Inhaled Oxygen Concentration - - Weight 88.9 kg (196 lb) 11/08/2021 8:27 AM RF DESIGN ENGINEER Height 180.3 cm (5' 11 ) 11/08/2021 8:27 AM RF DESIGN ENGINEER Body Mass Index 27.34 11/08/2021 8:27 AM RF DESIGN ENGINEER documented in this encounter Patient Instructions * Patient Instructions* MARIO Mendenhall - 11/08/2021 8:30 AM RF DESIGN ENGINEER Our scheduling office will contact you to arrange an exercise nuclear stress test in the near future DESIGN ENGINEER documented in this encounter Progress Notes * MARIO Mendenhall - 11/08/2021 8:30 AM CST From the office of Dieter Arechiga MD & Joann Marquez APRN Dear Dr. DENNIS CRUMP MD: Your patient, Tank Kowalski was seen on 11/08/2021 at the [facility]. Orders Placed This Encounter ??? LIPOPROTEIN, LDL CHOL, DIRECT ??? LIPID PANEL ??? AST/SGOT ??? NM EXER NUC STRESS TEST 1DAY ??? atorvastatin (LIPITOR) 80 MG tablet Medications: Current Outpatient Medications: ??? atorvastatin (LIPITOR) 80 MG tablet, Take 1 tablet (80 mg total) by mouth every evening., Disp:90 tablet, Rfl: 1 ??? amlodipine (NORVASC) 10 MG tablet, Take 10 mg by mouth daily. , Disp: , Rfl: ??? carvedilol 25 MG tablet, Take 1 tablet (25 mg total) by mouth 2 (two) times daily., Disp: 60 tablet, Rfl: 11 ??? CLOPIDOGREL 75 MG tablet, TAKE 1 TABLET(75 MG) BY MOUTH DAILY, Disp: 90 tablet, Rfl: 3 ??? esomeprazole (NEXIUM) 40 MG capsule, Take 1 tablet by mouth daily., Disp: , Rfl: ??? insulin lispro (HUMALOG) 100 UNIT/ML injection (VIAL), Humalog; per pump; 0; 11-Feb-2014; Active, Disp: , Rfl: ??? nitroglycerin 0.4 MG SL tablet, Place 1 tablet (0.4 mg total) under the tongue every 5 (five) minutes as needed for Chest Pain. Maximum of 3 doses., Disp: 30 tablet, Rfl: 1 ??? vilazodone (VIIBRYD) 40 MG tablet, Viibryd (vilazodone) tablet 40 mg; take 1 tablet by mouth once a day with meal; 0; 23-Feb-2014; Active, Disp: , Rfl: Allergies Allergen Reactions ??? Guaifenesin Swelling [...] Smoking status: Current Every Day Smoker Packs/day: 2.00 Types: Cigarettes ??? Smokeless tobacco: Never Used [...] and melena. Genitourinary: Negative for dysuria. Musculoskeletal: Positive for joint stiffness/pain. Negative for myalgias. Skin: Negative for rash. Neurological: Negative for tingling/numbness and focal weakness. Endo/Heme/Allergies: Negative for new or significant bruising/bleeding and polydipsia. Psychiatric/Behavioral: Negative for depression and new or significant memory loss. Filed Vitals: 11/08/21 0827 11/08/21 0830 BP: 128/70 126/78 Pulse: 80 Resp: 22 Weight: 88.9 kg (196 lb) Height: 5' 11 (1.803 m) Cardiac Exam Rate/Rhythm: Normal rate and regular [...] Skin: Dry. Warm. No pallor. No cyanosis. Insulin pump intact. Musculoskeletal: No kyphosis. Neurological: Alert. Oriented x 3. Appropriate mood and affect. Comments: Diagnoses/Impression: 1. Coronary artery disease of [place] artery of [place] heart with stable angina pectoris (CMS/HCC) NM EXER NUC STRESS TEST 1DAY 2. Primary hypertension 3. Hyperlipidemia, unspecified hyperlipidemia type 4. Tobacco use 5. Mixed hyperlipidemia LIPOPROTEIN, LDL CHOL, DIRECT LIPID PANEL AST/SGOT CANCELED: LIPID PANEL CANCELED: AST/SGOT CANCELED: LIPOPROTEIN, LDL CHOL, DIRECT 6. Encounter for long-term (current) drug use CANCELED: LIPID PANEL CANCELED: AST/SGOT CANCELED: LIPOPROTEIN, LDL CHOL, DIRECT PCP: DENNIS CRUMP MD DESIGN ENGINEER * MARIO Mendenhall - 11/08/2021 8:30 AM CST HISTORY OF PRESENT ILLNESS: Mr. Kowalski returns to clinic today for followup of CAD and chest pain. He has a history of coronary artery disease with previous stenting, hypertension, type 1 diabetes, dyslipidemia, remote stroke and ongoing tobacco use. Most recent heart catheterization was in 2018. Hehas had preserved LV systolic function. I spoke to him on October 27. He had had some episodes of chest pain on and off for a couple of weeks. He had some workup with his primary provider including EKG and labs. There were no acute changes or evidence of acute coronary syndrome. He since was confirmed positive for COVID at an emergency room visit on October 28 for vertigo. His creatinine was upto 2.2. He was given some fluids and Meclizine and said he felt better in a couple of days. Since early October, he has had just one more episode of sharp chest pain. He said it resolves without treatment. This morning, he had some mild discomfort in his chest while lying in bed and it went away when he got up and moved around. He says sometimes he can get some discomfort that radiates to his left arm, but he also has some tenderness to palpation. When inspected, that was musculoskeletal. It isnot limited by shortness of breath. He denies exertional chest pain. In hindsight, he feels the dayhe felt most sick was related to onset of his COVID illness. He denies orthopnea, PND, presyncope, syncope, edema. He denies symptoms of stroke. PLAN: Mr. Kowalski has chest pain associated with viral illness. Since he has been improved from his respiratory viral symptoms. He is not bringing on any consistent anginal type pain since has felt better. He does continue to smoke. He understands the risks of continued smoking and potential benefit of complete smoking cessation. He has reduced his cigarettes for 2-3 packs a day down to about 1-1/2packs per day in the last couple of weeks. I have recommended he return for a stress Cardiolite to exclude new ischemia. I reviewed his last lipid profile and his LDL is above goal. I recommended advancing his Atorvastatin to 80 mg every evening and repeating a fasting lipid with direct LDL and ASTin 3 months. Further recommendations are pending results of his stress test. DESIGN ENGINEER documented in this encounter Plan of Treatment Not on file documented as of this encounter Visit Diagnoses Diagnosis Coronary artery disease of [place] artery of [place] heart with stable angina pectoris ([facility])- Primary Primary hypertension Unspecified essential hypertension Hyperlipidemia, unspecified hyperlipidemia type Tobacco use Tobacco use disorder Mixed hyperlipidemia Encounter for long-term (current) drug use Encounter for long-term (current) use of other medications documented in this encounter Care Teams Hourly Team Members Relationship Specialty Start Date End Date Dennis Crump MD PCP - General INTERNAL MEDICINE 02/28/17 10/23/23 Joann Marquez ANP-BC [address] [facility] [address] [place] [address] [place] Railway Switchman NURSE PRACTITIONER 02/28/17 documented as of this encounter
--- OUTSIDE RECORDS SUMMARY | 2024-10-26 08:20 | XMS_ITS | Encounter Summary ---
Author Organization [facility] Address [address] [place] [address]. [place], [place] [address] [place] [address] Care Team Providers Care Emergency Medicine Specialist Name Role Phone Dennis Doran MD Primary Care Provider [phone] Joann Marquez BANNER- Unavailable [phone] Reason for Visit * Reason Onset Date Comments Information 04/20/2023 Encounter Details Date Type Department Care Team (Late st Contact Info) Description 04/20/2023 [facility]phone [place] [facility] [address] [place] [address] Dieter Arechiga MD [address] [address] Information Social History Tobacco Use Types Packs/Day [...] 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 Doran's office and let her know Dr. Zamora reviewed the EKG and it revealed sinus rhythm, no acute findings. Unchanged from December 2022. She v/u and had no questions. * Leann Dangelo RN - 04/20/2023 4:07 PM CDT Images from the original note were not included. Per Dr. Zamora's review of EKG: Pavan Zamora, DO You2 minutes ago (4:03 PM) The revealed sinus rhythm, no acute findings. Unchanged from December 2022 Dr. Zamora and myself called back at the number listed for return call- the office is closed andno back line number available. * Leann Dangelo RN - 04/20/2023 3:53 PM CDT Manyeta message sent to Dr. Zamora to review EKG and call Dr. Doran's office back- note also routed as high importance through [employer]. * Loretta Kaur - 04/20/2023 3:39 PM CDT Fax received and scanned. banquet server on call Dr. Zamora to take a look at. * Kelsey [place] LPN - 04/20/2023 1:[address] Arechiga is out for 2 weeks (not sure if you told them that) So when you get the EKG, please scan and then send this message to Dr Zamora office (online marketing analyst) * Loretta Kaur - 04/20/2023 1:13 PM CDT Received a call from Brook at primary care in [place] [phone] called they are faxing over a EKG that they have on this patient for Dr. Arechiga to look at. documented in this encounter Plan of Treatment Not on file documented as of this encounter Visit Diagnoses Not on filedocumented in this encounter Care Teams Emergency Medicine Specialist Relationship Specialty Start Date End Date Dennis Doran MD PCP - General INTERNAL MEDICINE 02/28/17 10/23/23 Joann Marquez, ANP- [address] [facility] [address] [place] [address] [place] Bucket Wash Operator NURSE PRACTITIONER 02/28/17 documented as of this encounter
--- OUTSIDE RECORDS SUMMARY | 2024-10-26 08:20 | XMS_ITS | Encounter Summary ---
Author Organization [facility] Address [facility] 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 He answered his phone. I have gone over the instructions very carefully and askedthe patient to write these down . I then asked him if he has any questions or want me to repeat anything. Patient said no. I let him know he is free to call our office if anything comes up. Tank voiced understanding and said thank you. OR QUALITY SUPERVISOR * Amanda Maldonado LPN - 11/19/2023 11:53 AM CST Left message for pt ot call back OR QUALITY SUPERVISOR * Amanda Maldonado LPN - 11/16/2023 1:22 PM CST Left message for pt to call back OR QUALITY SUPERVISOR * MARIO Mendenhall - 11/09/2023 5:17 PM CST I received a preop form to sign for Mr. Kowalski to undergo excision of of skin cyst neck to be done under local/mac. Pt is acceptable cardiac risk to proceed. He may hold his plavix for 7 days. I recommend he also hold Vascepa for 1 week prior to lower bleeding risk.Please advise him to take an 81mg aspirin daily while off plavix. He can again stop daily aspirin once the plavix is restarted postop.He should restart plavix post procedure when the surgeon feels the bleeding risk is acceptable. Please remind him to continue amlodipine, isosorbide and carvedilol without interruption. OR QUALITY SUPERVISOR documented in this encounter Plan of Treatment Not on file documented as of this encounter Visit Diagnoses Not on filedocumented in this encounter Care Teams Rn Intake Relationship Specialty Start Date End Date Denisha Hansen PA [address] [place] [address] PCP - General PHYSICIAN CONSTITUTIONAL LAW PROFESSOR 10/24/23 Joann Marquez, [facility]- [address] [facility] [address] [phone] [place] Flight Surgeon NURSE PRACTITIONER 02/28/17 documented as of this encounter
--- OUTSIDE RECORDS SUMMARY | 2024-10-26 08:20 | XMS_ITS | Encounter Summary ---
Author Organization [facility] Address [address] [place] [address]. [place], [place] [address] [place] [address] Care Team Providers Care Lightout Examiner Name Role Phone Dennis Doran MD Primary Care Provider [phone] Joann Marquez [facility]- Unavailable [phone] Reason for Visit * Reason Onset Date Comments Schedule Procedure 12/20/2021 Encounter Details Date Type Department Care Team (Late st Contact Info) Description 12/20/2021 Telephone [place] [facility] ld [address] [place] [address] Dieter Arechiga MD [address] [address] Schedule Procedure Social History Tobacco Use Types Packs/Day Years [...] 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 No / Unsure 01/09/2022 7:07 AM CDT documented as of this encounter Progress Notes * Rach Machado - 12/21/2021 3:27 PM CST [facility] possible PCI confirmed with Tank for 01/09 7:30am arrival PHI. Labs and COVID test to be done01/06 at [facility] in [place]. Instruction letter mailed. WORKER * Kelsey [place] LPN - 12/20/2021 11:[address] Arechiga saw pt today after abnormal nuclear and starting Imdur. Pt continues with chest pain and Dr Arechiga recommends cath. History of CAD, stent, diabetic. WORKER documented in this encounter Plan of Treatment Not on file documented as of this encounter Visit Diagnoses Not on filedocumented in this encounter Additional Health Concerns Infection Onset Date Last Indicated Resolved Time COVID-19 Rule Out 01/06/2022 01/06/2022 01/07/2022 2:32 PM CDT documented as of this encounter Care Teams Lightout Examiner Relationship Specialty Start Date End Date Dennis Doran MD PCP - General INTERNAL MEDICINE 02/28/17 10/23/23 Joann Marquez ANP- [address] [facility] [address] [place] [address] [place] Chief Substation Operator NURSE PRACTITIONER 02/28/17 documented as of this encounter
--- OUTSIDE RECORDS SUMMARY | 2024-10-26 08:20 | XMS_ITS | Encounter Summary ---
Author Organization [facility] Address [address] [place] [address]. 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 No / Unsure 10/28/2021 11:15 AM AXLE POLISHER documented as of this encounter Plan of Treatment Not on file documented as of this encounter Visit Diagnoses Not on filedocumented in this encounter Care Teams Machine Stone Polisher Apprentice Relationship Specialty Start Date End Date Dennis Doran MD PCP - General INTERNAL MEDICINE 02/28/17 10/23/23 Joann Marquez ANP-BC [address] [facility] [address] [place] [phone] [place] Metal Fabricating Inspector NURSE PRACTITIONER 02/28/17 documented as of this encounter
--- OUTSIDE RECORDS SUMMARY | 2024-10-26 08:20 | XMS_ITS | Encounter Summary ---
Author Organization [facility] Address [address] [place] [address]. 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 Yes 11/07/2021 3:01 PM STEEL SASH ERECTOR documented as of this encounter Plan of Treatment Not on file documented as of this encounter Visit Diagnoses Not on filedocumented in this encounter Care Teams Asp Net Software Developer Relationship Specialty Start Date End Date Dennis Doran MD PCP - General INTERNAL MEDICINE 02/28/17 10/23/23 Joann Marquez ANP-BC [address] [facility] [address] [place] [phone] [place] Staff Midwife NURSE PRACTITIONER 02/28/17 documented as of this encounter
--- OUTSIDE RECORDS SUMMARY | 2024-10-26 08:20 | XMS_ITS | Encounter Summary ---
Author Organization [facility] - [facility] Address Formerly [facility], [id number] [facility]. 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 [facility] [address] [place] [address] [employer] [employer] NURSE PRACTITIONER 02/28/17 documented as of this encounter
--- OUTSIDE RECORDS SUMMARY | 2024-10-26 08:20 | XMS_ITS | Encounter Summary ---
Author Organization [facility] Address [address] [place] [address]. 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 Not on file Not on file Not on file Not on file Not on file Not on file Not on file documented as of this encounter Plan of Treatment Not on file documented as of this encounter Results * ELECTROCARDIOGRAM (11/06/2023 8:44 AM CHIEF NURSING OFFICER) 11/06/2023 8:44 AM CHIEF NURSING OFFICER Narrative [facility] - 11/06/2023 9:02 AM CHIEF NURSING OFFICER ? [facility] ?[address] [place], [place] ??[address] ? Test Date: ?2023-11-06 Pat Name: ? TANK KOWALSKI ?Department: ?? 105 ? Room: ? Gender: ? Male ? 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 bjs : ?1975 ? Requested By: ABHINAV GOULD Order Number: [id number] ?Reading MD: ?? Abhinav Gould ? Measurements Intervals ?[place] ? Rate: ? 74 ? P: ?33 WY: ? 130 ?QRS: ?30 QRSD: ? 84 ? T: ?55 QT: ? 373 ? QTc: ?414 ? 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 : 1975 Requested By: ABHINAV GOULD Order Number: [id number] Reading MD: Abhinav Gould Measurements Intervals [place] Rate: 74 P: 33 WY: 130 QRS: 30 QRSD: 84 T: 55 QT: 373 QTc: 414 Interpretive Statements SINUS RHYTHM po SEPTAL MYOCARDIAL INFARCTION, OF INDETERMINATE AGE F NURSING OFFICER Abhinav Gould MD PROCEDURES-ORDERABLE NO CHARGE F inal Result [facility] documented in this encounter Visit Diagnoses Diagnosis Coronary artery disease involving [place] coronary artery of [place] heart without angina pectoris- Primary Coronary artery disease of [place] artery of [place] heart with stable angina pectoris (CMS/HCC)- Primary Mixed hyperlipidemia Primary hypertension Unspecified essential hypertension Tobacco use Tobacco use disorder documented in this encounter Care Teams Dairy Truck Driver Relationship Specialty Start Date End Date Denisha Hansen PA [address] [place] [address] PCP - General PHYSICIAN CONTRACT RECRUITER 10/24/23 Joann Marquez, ANP- [address] [facility] [address] [place] [address] [facility] [employer] NURSE PRACTITIONER 02/28/17 documented as of this encounter
--- OUTSIDE RECORDS SUMMARY | 2024-10-26 08:20 | XMS_ITS | Encounter Summary ---
Author Organization [facility] Address [address] [place] [address]. [place], [place] [id number] [place] [id number] Care Team Providers Care Technical Training Instructor Name Role Phone Dennis Doran MD Primary Care Provider [phone] Joann Marquez [facility] Unavailable [phone] Reason for Referral * Imaging (Emergency) - Closed Specialty Diagnoses / Procedures Referred By Cheyanne puentes Referred To Contact RADIOLOGY Procedures CT HEAD WO CON Orquidea Ospina MD [address] [place] [address] Phone: tel: fax: Referral ID Status Reason Start Date Expiration Date Visits Re quested Visits Authorized [id number] Closed 10/28/2021 11/28/2022 1 1 MANAGEMENT DIRECTOR Reason for Visit * Reason Comments Dizziness Encounter Details Date Type Department Care Team (Late st Contact Info) Description 10/28/2021 10:57 AM CASE MANAGEMENT DIRECTOR - 10/28/2021 2:20 PM CASE MANAGEMENT DIRECTOR Emergency 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 Not on file Not on file Not on file Not on file Not on file Not on file Not on file COVID-19 Exposure Response Date Recorded In the last month, have you been in contact with someone who was confirmed or suspected to have Coronavirus / COVID-19? No / Unsure 10/28/2021 11:15 AM CASE MANAGEMENT DIRECTOR documented as of this encounter Last Filed Vital Signs Vital Sign Reading Time Taken Comments Blood Pressure 175/80 10/28/2021 2:20 PM CASE MANAGEMENT DIRECTOR Pulse 75 10/28/2021 1:50 PM CASE MANAGEMENT DIRECTOR Temperature 37.3 ??C (99.1 ??F) 10/28/2021 11:[address] Respiratory Rate 16 10/28/2021 11:10 AM CASE MANAGEMENT DIRECTOR Oxygen Saturation 95% 10/28/2021 1:50 PM CASE MANAGEMENT DIRECTOR Inhaled Oxygen Concentration - - Weight 88.5 kg (195 lb) 10/28/2021 11:10 AM CASE MANAGEMENT DIRECTOR Height 180.3 cm (5' 11 ) 10/28/2021 11:10 AM CASE MANAGEMENT DIRECTOR Body Mass Index 27.2 10/28/2021 11:10 AM CASE MANAGEMENT DIRECTOR documented in this encounter Discharge Instructions * Discharge Instructions* Orquidea Ospina MD - 10/28/2021 1:41 PM CASE MANAGEMENT DIRECTOR May use zyrtc over the counter for congestion , return if worse MANAGEMENT DIRECTOR * Attachments The following attachments cannot be sent through Care Everywhere. * Dizziness, Adult ED ([place]) * Labyrinthitis ([place]) documented in this encounter Medications at Time of Discharge amlodipine (NORVASC) 10 MG tablet Take 10 mg by mouth daily. 09/24/2015 insulin lispro (HUMALOG) 100 UNIT/ML injection (VIAL) Inject into the skin see administration instructions. 02/11/2014 atorvastatin (LIPITOR) 40 MG tablet Take 40 mg by mouth nightly at bedtime. 09/09/2015 11/08/19 2 2 carvedilol 25 MG tablet Take 1 tablet (25 mg total) by mouth 2 (two) times daily. 60 tablet 11 05/04/2017 4 CLOPIDOGREL 75 MG tablet TAKE 1 TABLET(75 MG) BY MOUTH DAILY 90 tablet 3 06/28/2021 2 esomeprazole (NEXIUM) 40 MG capsule Take 1 tablet by mouth daily. 02/23/2014 2 meclizine 25 MG tablet Take 1 tablet (25 mg total) by mouth 3 (three) times daily as needed. 20 tablet 10/28/2021 2 nitroglycerin 0.[address] 1 tablet (0.4 mg total) under the tongue every 5 (five) minutes as needed for Chest Pain. Maximum of 3 doses. 30 tablet 1 05/22/2018 2 vilazodone (VIIBRYD) 40 MG tablet Viibryd (vilazodone) tablet 40 mg; take 1 tablet by mouth once a day with meal; 0; 23-Feb-2014; Active 02/23/2014 12/21/19 2 2 vitamin D2, ergocalciferol, 48466 UNITS capsule Take 50,000 Units by mouth once a week. 10/28/2021 4 documented as of this encounter ED Notes * Annel Botello RN - 10/28/2021 2:19 PM CST Feeling better, denies dizziness at this time MANAGEMENT DIRECTOR * Annel Botello RN - 10/28/2021 1:09 PM CST States doing ok laying on L side. Voices no c/o MANAGEMENT DIRECTOR * Annel Botello RN - 10/28/2021 10:59 AM CSTSummary: vertigo/ chest pain. States started getting sick on Sunday with body aches. Went to dr and yang test neg. Cont to takeNTG for chest pain and come to ER as needed. Took NTG yesterday. Today rolled over in bed and states spinning and double vision. Able to walk. No vomiting. No weakness MANAGEMENT DIRECTOR * Orquidea Ospina MD - 10/28/2021 10:55 AM CST Chief Complaint Chief Complaint Patient presents with ??? Dizziness History of Present Illness Dizziness and left-sided chest discomfort that started 3 days ago. Patient symptoms are off and on.Patient stated that he has been having head congestion in the past few days. No fever. There is some shortness 0.1 on arrival. Patient chest pain is mild. Relieved with nitro. Patient has history of coronary artery disease. His dizziness is worse with movement and standing up. This chest pain is now resolved. No modifying aggravating or relieving factors and no other associated symptoms Medical History ALLERGIES: Allergies Allergen Reactions ??? Guaifenesin Swelling ??? Simvastatin Myalgias MEDICATIONS: Prior to Admission medications Medication Sig Start Date End Date Taking? Authorizing Provider amlodipine (NORVASC) 10 MG tablet Take 10 mg by mouth daily. 09/24/15 Yes Doc Abstract atorvastatin (LIPITOR) 40 MG tablet Take 40 mg by mouth nightly at bedtime. 09/09/15 Yes Doc Abstract carvedilol 25 MG tablet Take 1 tablet (25 mg total) by mouth 2 (two) times daily. 05/04/17 Yes MARIO Mendenhall CLOPIDOGREL 75 MG tablet TAKE 1 TABLET(75 MG) BY MOUTH DAILY 06/28/21 Yes MARIO Mendenhall insulin lispro (HUMALOG) 100 UNIT/ML injection (VIAL) Humalog; per pump; 0; 11-Feb-2014; Active 02/11/14 Yes Doc Abstract meclizine 25 MG tablet Take 1 tablet (25 mg total) by mouth 3 (three) times daily as needed. Yes Orquidea Ospina MD nitroglycerin 0.[address] 1 tablet (0.4 mg total) under the tongue every 5 (five) minutes as needed for Chest Pain. Maximum of 3 doses. 05/22/18 Yes Ember Childers MD esomeprazole (NEXIUM) 40 MG capsule Take 1 tablet by mouth daily. 02/23/14 Doc Abstract vilazodone (VIIBRYD) 40 MG tablet Viibryd (vilazodone) tablet 40 mg; take 1 tablet by mouth once a day with meal; 0; 23-Feb-2014; Active 02/23/14 Doc Abstract PAST MEDICAL HISTORY: Past Medical History: Diagnosis Date ??? CAD (coronary artery disease) ??? Colitis ??? CVA (cerebral vascular accident) ([facility]) 2009 ??? Diabetes ([facility]) ??? Diabetic retinopathy ([facility]) ??? GERD (gastroesophageal reflux disease) ??? History of coronary artery stent placement 2013 ??? Hyperlipidemia ??? Hypertension ??? Lumbago ??? Personal history of MRSA (methicillin resistant Staphylococcus aureus) MRSA abscess on the face(negative cultures in 2013) PAST SURGICAL HISTORY: Past Surgical History: Procedure Laterality Date ??? HEART CATH 02/20/2014 Cardiac Cath ??? HEART CATH 05/22/2018 ??? HEART CATH 2014 ??? SKIN BIOPSY ??? TONSILLECTOMY ??? XA CORONARY INTERVENTION 02/24/2014 MARTHA to the proximal LAD FAMILY HISTORY: Family History Problem Relation Name Age of Onset ??? Stent Mother 45 stents ??? Heart Attack Mother ??? Valve Disease Sister Valve problem ??? Coronary artery disease Other SOCIAL HISTORY: Social History Tobacco Use ??? Smoking status: Current Every Day Smoker Packs/day: 2.00 Types: Cigarettes ??? Smokeless tobacco: Never Used Substance Use Topics ??? Alcohol use: Yes Comment: 4-6 weekly ??? Drug use: No Review of Systems Review of Systems Constitutional: As per hpi HENT: Negative. Eyes: Negative. Respiratory: Positive for chest tightness. Negative for cough and shortness of breath. Cardiovascular: Positive for chest pain. Gastrointestinal: Negative. Genitourinary: Negative. Musculoskeletal: Negative. Neurological: Positive for dizziness and light-headedness. Negative for seizures, facial asymmetry,speech difficulty, numbness and headaches. Psychiatric/Behavioral: Negative. Physical Exam Filed Vitals: 10/28/21 1135 10/28/21 1205 10/28/21 1235 10/28/21 1305 BP: (!) 160/76 (!) 161/85 (!) 163/86 (!) 147/83 Pulse: 88 69 74 72 Resp: Temp: TempSrc: SpO2: 96% 95% 98% 98% Weight: Height: Physical Exam Vitals and nursing note reviewed. Constitutional: Appearance: Normal appearance. HENT: Head: Normocephalic and atraumatic. Right Ear: Tympanic membrane normal. Left Ear: Tympanic membrane normal. Nose: Nose normal. Mouth/Throat: Mouth: Mucous membranes are dry. Eyes: Extraocular Movements: Extraocular movements intact. Pupils: Pupils are equal, round, and reactive to light. Cardiovascular: Rate and Rhythm: Normal rate and regular rhythm. Pulses: Normal pulses. Heart sounds: Normal heart sounds. Pulmonary: Effort: Pulmonary effort is normal. Breath sounds: Normal breath sounds. Musculoskeletal: Cervical back: Normal range of motion and neck supple. Skin: General: Skin is warm. Neurological: Mental Status: He is alert. 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1975 Requested By: ORQUIDEA OSPINA Order Number: [id number] Reading MD: Measurements Intervals [place] Rate: 74 P: 19 [place]: 120 QRS: 19 QRSD: 85 T: 52 QT: 393 QTc: 436 Interpretive Statements SINUS RHYTHM Compared to ECG 01/21/2021 13:11:23 Myocardial infarct finding no longer present ECG 12 lead Narrative [facility] Test Date: 2021-10-28 Pat Name: RUBIA KOWALSKI Department: Room: 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1975 Requested By: ORQUIDEA OSPINA Order Number: [id number] Reading MD: Measurements Intervals [place] Rate: 62 P: 24 [place]: 133 QRS: -6 QRSD: 90 T: 31 QT: 421 QTc: 431 Interpretive Statements SINUS RHYTHM Compared to ECG 10/28/2021 11:04:55 No significant changes LABORATORY STUDIES: Results for orders placed or performed during the hospital encounter of 10/28/21 CBC W/DIFF AUTOMATED Result Value Ref Range WBC 4.8 4.4 - 11.0 x10'3/uL RBC 4.70 4.50 - 5.90 x10'6/uL HGB 14.1 14.0 - 17.5 G/DL HCT 42.9 41.5 - 50.4 % MCV 91.3 80.0 - 96.0 FL MCH 30.0 26.5 - 31.4 PG MCHC 32.9 31.9 - 34.8 G/DL RDW 13.1 12.3 - 14.3 % PLT 169 151 - 353 x10'3/uL MPV 11.3 9.7 - 11.9 FL RBC MORPHOLOGY NORMAL PLT MORPH. NORMAL WBC MORPHOLOGY NORMAL LYMPHOCYTES 14.3 (L) 15.8 - 45.0 % NEUTROPHILS 74.2 (H) 42.1 - 71.9 % MONOCYTES 6.7 5.7 - 12.5 % EOSINOPHILS 3.6 0.0 - 5.6 % BASOPHILS 1.0 0.0 - 1.3 % ABS. NEUTROPHILS 3.54 1.40 - 6.00 x10'3/uL IMMATURE GRANS 0.2 0.0 - 0.5 % ABS. LYMPHOCYTES 0.68 (L) 0.80 - 4.70 x10'3/uL COMPREHENSIVE METABOLIC PANEL Result Value Ref Range GLUCOSE 243 (H) 70 - 99 MG/DL BUN 22 (H) 7 - 18 MG/DL CREATININE S/P/B 2.29 (H) 0.7 - 1.3 MG/DL SODIUM 140 136 - 145 MMOL/L POTASSIUM 4.2 3.5 - 5.1 MMOL/L CHLORIDE S/P/B 105 100 - 108 MMOL/L CO2 22.9 21 - 32 MMOL/L CALCIUM 8.1 (L) 8.5 - 10.1 MG/DL BILIRUBIN TOTAL S/P/B 0.2 0.2 - 1.2 MG/DL TOTAL PROTEIN S/P/B 6.0 (L) 6.4 - 8.2 G/DL ALBUMIN S/P/B 2.8 (L) 3.4 - 5.0 G/DL AST 29 15 - 37 U/L ALT 28 16 - 60 U/L ALKALINE PHOSPHATASE S/P/B 86 50 - 136 U/L ANION GAP 12.1 5 - 15 MMOL/L BUN CREATININE RATIO 9.6 6 - 26 A/G RATIO 0.9 (L) 1.0 - 2.0 RATIO eGFR Non-Afr. Amer. 33 (L) >90 ML/MIN/1.73 M2 eGFR Afr. Amer. 38 (L) >90 ML/MIN/1.73 M2 TROPONIN, QUANT Result Value Ref Range TROPONIN I HIGH SENSITIVITY 15 <76 ng/L IMAGING STUDIES CT HEAD WO CON Final Result by User, [id number] (10/28 8262) IMAGING STUDIES: CT HEAD WO CON DATE: 10/28/2021 12:01 PM CLINICAL HISTORY: Vertigo, peripheral . Double vision. IMPRESSION: 1. Routine noncontrast head CT. Comparison 08/18/2012.. Radiation dose reduction technique was utilized. 2. No evidence of intracranial hemorrhage or major vessel infarct. 3. Brainstem and posterior fossa within normal limits. Montanez/white differentiation is normal. Stable benign 3.6 cm arachnoid cyst in the anterior left temporal fossa. 4. Advanced vascular calcifications for a patient of this age. Please correlate with cardiac risk profile. 5. No cranial fracture. Mastoid air cells are well aerated. Mild mucosal thickening in the paranasal air cells without erosion. 6. Globes are intact.. Ordered By: ORQUIDEA OSPINA Interpreted By: Aguilar Luther, 10/28/2021 12:34 PM XR CHEST PORTABLE Final Result by User, [id number] (10/28 0205) IMAGING STUDIES: XR CHEST PORTABLE DATE: 10/28/2021 11:01 AM CLINICAL HISTORY: Chest pain . COMPARISON: No Comparisons. IMPRESSION: 1. No evidence of acute cardiopulmonary disease. 2. No evidence of pleural effusion or pneumothorax. No CHF. 3. Normal heart size. Osseous structures intact. Ordered By: ORQUIDEA OSPINA Interpreted By: Aguilar Luther, 10/28/2021 11:11 AM ED Course / Medical Decision Making Patient BP dropped, cr and BUN is high, both indication of dehydration. Patient I sfeeling better. Patient was offered observation for continued monitoring but he declined he stated that she was worried about the dizziness and he thinks his chest pressure is due to the anxiety from the dizziness. He agreed to return if his symptoms worsens. MDM Number of Diagnoses or Management Options Amount and/or Complexity of Data Reviewed Clinical lab tests: ordered and reviewed Tests in the radiology section of CPT??: ordered and reviewed Tests in the medicine section of CPT??: reviewed Risk of Complications, Morbidity, and/or Mortality Presenting problems: moderate Diagnostic procedures: moderate Management options: moderate General comments: DD: chest wall pain, NSTEMI. Orthostatic hypotension Clinical Impression Vertigo (Primary) Chest wall pain Disposition: Discharge Orquidea Ospina MD 10/28/21 1342 MANAGEMENT DIRECTOR documented in this encounter Plan of Treatment Not on file documented as of this encounter Procedures Procedure Name Priority Date/Time Associated Diagnosis Comments ECG 12-LEAD STAT 10/28/2021 1:15 PM CASE MANAGEMENT DIRECTOR CT HEAD WO CON STAT 10/28/2021 12:24 PM CASE MANAGEMENT DIRECTOR XR CHEST PORTABLE STAT 10/28/2021 11: 10 AM CASE MANAGEMENT DIRECTOR COMPREHENSIVE METABOLIC PANEL STAT 10/28/2021 11:05 AM CASE MANAGEMENT DIRECTOR CBC W/DIFF AUTOMATED STAT 10/28/2021 11:05 AM CASE MANAGEMENT DIRECTOR TROPONIN, QUANT STAT 10/28/2021 11:05 AM CASE MANAGEMENT DIRECTOR ECG 12-LEAD STAT 10/28/2021 11:04 AM CASE MANAGEMENT DIRECTOR documented in this encounter Results * ECG 12 lead (10/28/2021 1:15 PM CASE MANAGEMENT DIRECTOR) 10/28/2021 1:15 PM CASE MANAGEMENT DIRECTOR Narrative [facility] ([facility] RAD - 10/29/2021 7:44 AM CASE MANAGEMENT DIRECTOR ?[facility] ? Test Date: ?2021-10-28 Pat Name: ? RUBIA KOWALSKI ?Department: ? Room: ? 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 Requested By: ORQUIDEA PIÑAI Order Number: [id number] ? Reading MD: ?? Delano Wray ? Measurements Intervals ?[place] ? Rate: ? 62 ? P: ?24 [place]: ? 133 ?QRS: ?-6 QRSD: ? 90 ? T: ?31 QT: ? 421 ? QTc: ?431 ? Interpretive Statements SINUS RHYTHM Compared to ECG 10/28/2021 11:04:55 No significant changes Poor R Wave Progression clinical correlation recommended. 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 MANAGEMENT DIRECTOR us Orquidea Ospina MD ECG ORDERABLES Final Result [facility] ([facility]) RAD * CT HEAD WO CON (10/28/2021 12:24 PM CASE MANAGEMENT DIRECTOR) Anatomical Region Laterality Modality Head Computed Tomogra phy 10/28/2021 12:3 4 PM CASE MANAGEMENT DIRECTOR Impressions 10/28/2021 12:39 PM CASE MANAGEMENT DIRECTOR IMPRESSION: 1. ??Routine noncontrast head CT. Comparison 08/18/2012.. Radiation dose reduction technique was utilized. 2. ??No evidence of intracranial hemorrhage or major vessel infarct. 3. ??Brainstem and posterior fossa within normal limits. Montanez/white differentiation is normal. Stable benign 3.6 cm arachnoid cyst in the anterior left temporal fossa. 4. ??Advanced vascular calcifications for a patient of this age. Please correlate with cardiac risk profile. 5. ??No cranial fracture. Mastoid air cells are well aerated. Mild mucosal thickening in the paranasal air cells without erosion. 6. ??Globes are intact.. Ordered By: ORQUIDEA OSPINA Interpreted By: Aguilar Luther, 10/28/2021 12:34 PM Narrative 10/28/2021 12:39 PM CASE MANAGEMENT DIRECTOR IMAGING STUDIES: CT HEAD WO CON ??DATE: 10/28/2021 12:01 PM CLINICAL HISTORY: Vertigo, peripheral ?? . ??Double vision. Procedure Note Lewis Luther MD - 10/28/2021 IMAGING STUDIES: CT HEAD WO CON DATE: 10/28/2021 12:01 PM CLINICAL HISTORY: Vertigo, peripheral . Double vision. IMPRESSION: 1. Routine noncontrast head CT. Comparison 08/18/2012.. Radiation dosereduction technique was utilized. 2. No evidence of intracranial hemorrhage or major vessel infarct. 3. Brainstem and posterior fossa within normal limits. Montanez/whitedifferentiation is normal. Stable benign 3.6 cm arachnoid cyst in theanterior left temporal fossa. 4. Advanced vascular calcifications for a patient of this age. Pleasecorrelate with cardiac risk profile. 5. No cranial fracture. Mastoid air cells are well aerated. Mild mucosalthickening in the paranasal air cells without erosion. 6. Globes are intact.. Ordered By: ORQUIDEA OSPINA Interpreted By: Aguilar Luther, 10/28/2021 12:34 PM Orquidea Ospina MD CT Final Result * XR CHEST PORTABLE (10/28/2021 11:10 AM CASE MANAGEMENT DIRECTOR) Anatomical Region Laterality Modality Chest Radiographic Madelin ging 10/28/2021 11:1 1 AM CASE MANAGEMENT DIRECTOR Impressions 10/28/2021 11:12 AM CASE MANAGEMENT DIRECTOR IMPRESSION: 1. ??No evidence of acute cardiopulmonary disease. 2. ??No evidence of pleural effusion or pneumothorax. No CHF. 3. ??Normal heart size. Osseous structures intact. Ordered By: ORQUIDEA OSPINA Interpreted By: Aguilar Luther, 10/28/2021 11:11 AM Narrative 10/28/2021 11:12 AM CASE MANAGEMENT DIRECTOR IMAGING STUDIES: XR CHEST PORTABLE ? DATE: 10/28/2021 11:01 AM CLINICAL HISTORY: Chest pain ?? . COMPARISON: No Comparisons. Procedure Note Lewis Luther MD - 10/28/2021 IMAGING STUDIES: XR CHEST PORTABLE DATE: 10/28/2021 11:01 AM CLINICAL HISTORY: Chest pain . COMPARISON: No Comparisons. IMPRESSION: 1. No evidence of acute cardiopulmonary disease. 2. No evidence of pleural effusion or pneumothorax. No CHF. 3. Normal heart size. Osseous structures intact. Ordered By: ORQUIDEA OSPINA Interpreted By: Aguilar Luther, 10/28/2021 11:11 AM Orquidea Ospina MD GENERAL IMAGING Final Result * TROPONIN, QUANT (10/28/2021 11:05 AM CASE MANAGEMENT DIRECTOR) TROPONIN I HIGH SENSITIVITY 15 <76 ng/L 10/28/2021 11:54 AM CASE MANAGEMENT DIRECTOR [facility] Comment: HIGH DOSES OF BIOTIN, TROPONIN-SPECIFIC AUTOANTIBODIES, AND ANTIBODY THERAPY CONTAINING HAMA MAY INTERFERE WITH THIS TEST RESULT. CORRELATION TO CLINICAL HISTORY AND PRESENTATION RECOMMENDED. 10/28/2021 11:0 5 AM CASE MANAGEMENT DIRECTOR us Orquidea Ospina MD LABORATORY Final Result [facility] [address] [place] [address], [place] [phone] * (ABNORMAL) COMPREHENSIVE METABOLIC PANEL (10/28/2021 11:05 AM [facility] GLUCOSE 243(H) 70 - 99 MG/DL 10/28/2021 11:50 AM [facility] BUN 22(H) 7 - 18 MG/DL 10/28/2021 11:50 AM [facility] CREATININE S/P/B 2.29(H) 0.7 - 1.3 MG/DL 10/28/2021 11:50 AM [facility] SODIUM S/P/B 140 136 - 145 MMOL/L 10/28/2021 11:50 AM [facility] POTASSIUM S/P/B 4.2 3.5 - 5.1 MMOL/L 10/28/2021 11:50 AM [facility] CHLORIDE S/P/B 105 100 - 108 MMOL/L 10/28/2021 11:50 AM [facility] CO2 22.9 21 - 32 MMOL/L 10/28/2021 11:50 AM [facility] CALCIUM S/P/B 8.1(L) 8.5 - 10.1 MG/DL 10/28/2021 11:50 AM [facility] BILIRUBIN TOTAL S/P/B 0.2 0.2 - 1.2 MG/DL 10/28/2021 11:50 AM [facility] TOTAL PROTEIN S/P/B 6.0(L) 6.4 - 8.2 G/DL 10/28/2021 11:50 AM [facility] ALBUMIN S/P/B 2.8(L) 3.4 - 5.0 G/DL 10/28/2021 11:50 AM [facility] AST 29 15 - 37 U/L 10/28/2021 11:50 AM [facility] ALT 28 16 - 60 U/L 10/28/2021 11:50 AM [facility] ALKALINE PHOSPHATASE S/P/B 86 50 - 136 U/L 10/28/2021 11:50 AM [facility] ANION GAP 12.1 5 - 15 MMOL/L 10/28/2021 11:50 AM [facility] BUN CREATININE RATIO 9.6 6 - 26 10/28/2021 11:50 AM [facility] A/G RATIO 0.9(L) 1.0 - 2.0 RATIO 10/28/2021 11:50 AM [facility] EGFR NON-AFR. AMER. 33(L) >90 ML/MIN/1.7 3 M2 10/28/2021 11:50 AM [facility] EGFR AFR. AMER. 38(L) >90 ML/MIN/1.7 3 M2 10/28/2021 11:50 AM [facility] Comment: NOTE: eGFR is not calculated for patients <18 years of age. This is an estimated GFR (CKD EPI) and should not be used for calculating drug doses. 10/28/2021 11:0 5 AM [facility] Orquidea Ospina MD LABORATORY Final Result [facility] [address] [place] [address], * (ABNORMAL) CBC W/DIFF AUTOMATED (10/28/2021 11:05 AM [facility]) WBC 4.8 4.4 - 11.0 x10'3/uL 10/28/2021 11:44 AM [facility] RBC 4.70 4.50 - 5.90 x10'6/uL 10/28/2021 11:44 AM [facility] HGB 14.1 14.0 - 17.5 G/DL 10/28/2021 11:44 AM [facility] HCT 42.9 41.5 - 50.4 % 10/28/2021 11:44 AM [facility] MCV 91.3 80.0 - 96.0 FL 10/28/2021 11:44 AM [facility] MCH 30.0 26.5 - 31.4 PG 10/28/2021 11:44 AM [facility] MCHC 32.9 31.9 - 34.8 G/DL 10/28/2021 11:44 AM [facility] RDW 13.1 12.3 - 14.3 % 10/28/2021 11:44 AM [facility] PLT 169 151 - 353 x10'3/uL 10/28/2021 11:44 AM [facility] MPV 11.3 9.7 - 11.9 FL 10/28/2021 11:44 AM [facility] RBC MORPHOLOGY NORMAL 10/28/2021 11:44 AM [facility] PLT MORPH. NORMAL 10/28/2021 11:44 AM [facility] WBC MORPHOLOGY NORMAL 10/28/2021 11:44 AM [facility] LYMPHOCYTES % 14.3(L) 15.8 - 45.0 % 10/28/2021 11:44 AM [facility] NEUTROPHILS % 74.2(H) 42.1 - 71.9 % 10/28/2021 11:44 AM [facility] MONOCYTES % 6.7 5.7 - 12.5 % 10/28/2021 11:44 AM CASE MANAGEMENT DIRECTOR [facility] EOSINOPHILS 3.6 0.0 - 5.6 % 10/28/2021 11:44 AM CASE MANAGEMENT DIRECTOR [facility] BASOPHILS 1.0 0.0 - 1.3 % 10/28/2021 11:44 AM CASE MANAGEMENT DIRECTOR [facility] ABS. NEUTROPHILS 3.54 1.40 - 6.00 x10'3/uL 10/28/2021 11:44 AM CASE MANAGEMENT DIRECTOR [facility] IMMATURE GRANS % 0.2 0.0 - 0.5 % 10/28/2021 11:44 AM [facility] ABS. LYMPHOCYTES 0.68(L) 0.80 - 4.70 x10'3/uL 10/28/2021 11:44 AM CASE MANAGEMENT DIRECTOR [facility] 10/28/2021 11:0 5 AM CASE MANAGEMENT DIRECTOR Orquidea Ospina MD LABORATORY Final Result Performing Organization Address [facility]/State/[facility] Co de Phone Number [facility] [address] [place] [address], * ECG 12 lead (10/28/2021 11:04 AM CASE MANAGEMENT DIRECTOR) 10/28/2021 11:0 4 AM CASE MANAGEMENT DIRECTOR Narrative [facility] ([facility]) RAD - 10/29/2021 7:41 AM CASE MANAGEMENT DIRECTOR ?[facility] ? Test Date: ?2021-10-28 Pat Name: ? RUBIA KOWALSKI ?Department: ? Room: ? 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 Requested By: CHILEL MELVA Order Number: [id number] ? Reading MD: ?? Delano Wray ? Measurements Intervals ?[place] ? Rate: ? 74 ? P: ?19 [place]: ? 120 ?QRS: ?19 QRSD: ? 85 ? T: ?52 QT: ? 393 ? QTc: ?436 ? Interpretive Statements SINUS RHYTHM Compared to ECG 01/21/2021 13:11:23 old Myocardial infarct in anteroseptal ??area still a possibility clinical correlation recommended. 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 MANAGEMENT DIRECTOR us Orquidea Ospina MD ECG ORDERABLES Final Result [facility] ([facility]) [facility] documented in this encounter Visit Diagnoses Diagnosis Vertigo- Primary Dizziness and giddiness Chest wall pain Painful respiration documented in this encounter Administered Medications Inactive Administered Medications - up to 3 most recent administrations Medication Order MAR Action Action Date Dose Rate Site aspirin chewable tablet 324 mg 324 mg, Oral, Once, 1 dose, On Sun10/28/21 at 1100 Given 10/28/2021 11:46 AM CASE MANAGEMENT DIRECTOR 324 mg meclizine (ANTIVERT) tablet 50 mg 50 mg, Oral, Once, 1 dose, On Sun10/28/21 at 1115 Given 10/28/2021 11:47 AM CASE MANAGEMENT DIRECTOR 50 mg sodium chloride 0.9% bolus infusion SOLN 1,000 mL 1,000 mL, Intravenous, Administer over 15 Minutes, Once, 1 dose, On Sun10/28/21 at 1245 New Bag 10/28/2021 1:09 PM CASE MANAGEMENT DIRECTOR 1,000 mLs documented in this encounter Active and Recently Administered Medications Times are shown in CASE MANAGEMENT DIRECTOR. Scheduled Medication Order 10/26/2021 10/27/2021 10/28/2021 aspirin chewable tablet 324 mg (COMPLETED) 324 mg, Oral, Once, 1 dose, On Sun10/28/21 at 1100 1146 (Given - Provid er: Annel Botello, INESSA) meclizine (ANTIVERT) tablet 50 mg (COMPLETED) 50 mg, Oral, Once, 1 dose, On Sun10/28/21 at 1115 1147 (Given - Provid er: Annel Botello RN) sodium chloride 0.9% bolus infusion SOLN 1,000 mL (COMPLETED) 1,000 mL, Intravenous, Administer over 15 Minutes, Once, 1 dose, On Sun10/28/21 at 1245 1309 (New Bag - Prov ider: Annel Botello RN)1410 (Infusion Stop Time - Provider: Annel Botello RN) documented in this encounter Care Teams Technical Training Instructor Relationship Specialty Start Date End Date Dennis Doran MD PCP - General INTERNAL MEDICINE 02/28/17 10/23/23 Joann Marquez ANP- [address] [facility] [address] [place] [address] [place] Model Maker Fiberglass NURSE PRACTITIONER 02/28/17 documented as of this encounter
--- OUTSIDE RECORDS SUMMARY | 2024-10-26 08:20 | XMS_ITS | Encounter Summary ---
Author Organization [facility] Address [address] [place] [address]. 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 No / Unsure 12/02/2021 9:21 AM HOOK TENDER documented as of this encounter Progress Notes * Dieter Wade MD - 12/04/2021 3:00 PM CST Agree TENDER * MARIO Mendenhall - 12/02/2021 4:55 PM CST I discussed findings of stress test with Dr. Arechiga. Results called to pt. He has had two spells of chest pain following exertion that he has relieved with a single SL NTG in the past 3 weeks. Most recent spell after grocery shopping and carrying groceries into home. He denies any symptoms of unstable angina. He has cut back his smoking and tells me is is under 2 packs per day and often doesn't smoke the whole cigarette. Reinforced the recommendation of complete smoking cessation. Recommend adding isosorbide mononitrate 30mg every am and follow up in the office on 12/20/21 at 10:[address] Arechiga. Reviewed symptoms which would warrant prompt medical attention. Patient voices understanding. Results routed to PCP. TENDER TENDER * MARIO Mendenhall - 12/02/2021 3:42 PM CST Please advise. TENDER * Collette Giles RN - 12/02/2021 3:31 PM CST Please review stress test. TENDER documented in this encounter Plan of Treatment Not on file documented as of this encounter Visit Diagnoses Not on filedocumented in this encounter Care Teams Pet Walker Relationship Specialty Start Date End Date Dennis Doran MD PCP - General INTERNAL MEDICINE 02/28/17 10/23/23 Joann Marquez, [facility]- [address] [facility] [address] [place] [address] [place] Machine Operator NURSE PRACTITIONER 02/28/17 documented as of this encounter
--- OUTSIDE RECORDS SUMMARY | 2024-10-26 08:20 | XMS_ITS | Encounter Summary ---
Author Organization [facility] Address [address] [place] [address]. 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 [address] [place] [address] [place] Carbon Printer NURSE PRACTITIONER 02/28/17 documented as of this encounter
--- OUTSIDE RECORDS SUMMARY | 2024-10-26 08:20 | XMS_ITS | Encounter Summary ---
Author Organization [facility] Address [address] [place] [address]. 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
--- OUTSIDE RECORDS SUMMARY | 2024-10-26 08:20 | XMS_ITS | Encounter Summary ---
Author Organization [facility] Address [address] [place] [address]. [place], [place] [address] [place] [address] Care Team Providers Care Contact Centre Supervisor Name Role Phone Dennis Doran MD Primary Care Provider [phone] Joann Marquez [facility] Unavailable [phone] Reason for Referral * Imaging (Routine) - Closed Specialty Diagnoses / Procedures Referred By Cheyanne puentes Referred To Contact RADIOLOGY Diagnoses Chest pain Procedures CT CHEST W Denisha Liu PA Phone: tel: fax: Referral ID Status Reason Start Date Expiration Date Visits Re quested Visits Authorized [id number] Closed 01/10/2022 04/12/2022 2 2 Reason for Visit * Imaging (Routine) - Closed Specialty Diagnoses / Procedures Referred By Cheyanne puentes Referred To Contact RADIOLOGY Diagnoses Chest pain Procedures CT CHEST W Denisha Liu PA Phone: tel: fax: Referral ID Status Reason Start Date Expiration Date Visits Re quested Visits Authorized [id number] Closed 01/10/2022 04/12/2022 2 2 Encounter Details Date Type Department Care Team (Latest Contact Info) Description 01/20/2022 7:59 AM CDT - 01/20/2022 11:59 PM CDT 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 10/28/2021 06/11/20 24 documented as of this encounter Plan of Treatment Not on file documented as of this encounter Procedures Procedure Name Priority Date/Time Associated Diagnosis Comments CREATININE WHOLE BLOOD Routine 01/20/2022 8:[address]T Chest pain [address] CHEST W CON Routine 01/20/2022 8:33 AM CDT Chest pain documented in this encounter Results * (ABNORMAL) CREATININE WHOLE BLOOD (Radiology only) (01/20/2022 8:59 AM CDT) CREATININE WHOLE BLOOD 2.1(H) 0.6 - 1.2 MG/DL 01/20/2022 5:29 PM CDT [facility] 01/20/2022 8:59 AM CDT [facility] Final Result [facility] [id number] [place] [address], * CT CHEST W CON (01/20/2022 8:33 AM CDT) Anatomical Region Laterality Modality Chest Computed Tomogra phy 01/20/2022 12:2 0 PM CDT Impressions 01/20/2022 12:31 PM CDT IMPRESSION: 1. ??No infiltrate or effusion. No pneumothorax. 2. ?? Atherosclerotic aorta without dilatation. No pericardial effusion. ??No pathologic lymphadenopathy or pulmonary nodules. ??Nonpathologic sized mediastinal lymph nodes. 3. ??Mild mucosal thickening esophagus may be due to reflux. Upper abdomen with normal adrenals. Fatty superior liver. Normal gallbladder. Incidental note made of benign lipoma in the intramuscular location overlying the lateral right hemithorax on image 76. Measuring 2.7 cm. Degenerative change in thoracic spine. . 4. ??Moderate coronary artery calcifications with coronary stent.. Coronary artery disease is advanced for a patient of this age. Mild gynecomastia. Ordered By: DENISHA HANSEN Interpreted By: Aguilar Luther, 01/20/2022 12:20 PM Narrative 01/20/2022 12:31 PM CDT IMAGING STUDIES: ??CT CHEST W CON ? DATE: ??01/20/2022 8:02 AM COMPARISON STUDIES: ??No comparisons. CLINICAL HISTORY: ??Chest pain ?? . ??Diabetes. Coronary artery stent.. Radiation dose reduction technique was utilized. CONTRAST: 75 cc Isovue 370 IV. Procedure Note Lewis Luther MD - 01/20/2022 IMAGING STUDIES: CT CHEST W CON DATE: 01/20/2022 8:02 AM COMPARISON STUDIES: No comparisons. CLINICAL HISTORY: Chest pain . Diabetes. Coronary artery stent..Radiation dose reduction technique was utilized. CONTRAST: 75 cc Isovue 370 IV. IMPRESSION: 1. No infiltrate or effusion. No pneumothorax. 2. Atherosclerotic aorta without dilatation. No pericardial effusion.No pathologic lymphadenopathy or pulmonary nodules. Nonpathologic sizedmediastinal lymph nodes. 3. Mild mucosal thickening esophagus may be due to reflux. Upper abdomenwith normal adrenals. Fatty superior liver. Normal gallbladder. Incidentalnote made of benign lipoma in the intramuscular location overlying thelateral right hemithorax on image 76. Measuring 2.7 cm. Degenerativechange in thoracic spine. . 4. Moderate coronary artery calcifications with coronary stent.. Coronaryartery disease is advanced for a patient of this age. Mild gynecomastia. Ordered By: DENISHA HANSEN Interpreted By: Aguilar Luther, 01/20/2022 12:[address] Final Result documented in this encounter Visit Diagnoses Diagnosis Chest pain Chest pain, unspecified documented in this encounter Administered Medications Inactive Administered Medications - up to 3 most recent administrations Medication Order MAR Action Action Date Dose Rate Site iopamidol (ISOVUE-370) 76 % injection 75 mL 75 mL, Intravenous, IMG once as needed, Contrast, 1 dose, Starting on Sun01/20/22 at 0858, Until Sun01/20/22 at 0822 Given 01/20/2022 8:22 AM CDT 75 mLs Right Arm documented in this encounter Care Teams Contact Centre Supervisor Relationship Specialty Start Date End Date Dennis Doran MD PCP - General INTERNAL MEDICINE 02/28/17 10/23/23 Joann Marquez, ANP- [address] [facility] [address] [place] [address] [place] Intern Retail NURSE PRACTITIONER 02/28/17 documented as of this encounter
--- OUTSIDE RECORDS SUMMARY | 2024-10-26 08:20 | XMS_ITS | Encounter Summary ---
Author Organization [facility] Address [address] [place] [address]. [place], [place] [address] [place] [address] Care Team Providers Care Youth Coordinator Name Role Phone Dennis Doarn MD Primary Care Provider [phone] Joann Marquez [facility]- Unavailable [phone] Reason for Visit * Reason Onset Date Comments Information 01/10/2022 Encounter Details Date Type Department Care Team ([facility] st Contact Info) Description 01/10/2022 [facility]phone [place] [facility] [address] [place] [address] Nima Hollis MD [address] [place] [address] Information Social History Tobacco Use Types Packs/Day [...] 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 Pt has lab orders from Joann to check cholesterolin couple weeks. Reminded to be fasting 10 hours before. He agrees. Aware I will schedule appt and mail this to him. He agrees. * Dieter Wade MD - 01/16/2022 12:44 PM CDT Reviewed cath films. Agree with medical management with aggressive risk factor modification. Needs to stop smoking completely. He does need an updated lipid profile to make sure his LDL is at goal. schedule 3 to 4-month follow-up please * Dieter Wade MD - 01/11/2022 5:09 PM CDT Ill review cath when I return * Collette Giles RN - 01/10/2022 8:[address] Hollis performed a LHC on Tank yesterday 01/09. Please follow up with him when Dr. Arechiga recommends. Thank you! documented in this encounter Plan of Treatment Not on file documented as of this encounter Visit Diagnoses Not on filedocumented in this encounter Care Teams Youth Coordinator Relationship Specialty Start Date End Date Dennis Doran MD PCP - General INTERNAL MEDICINE 02/28/17 10/23/23 Joann Marquez, ANP- [address] [address] [place] Insulation Worker Interior Surface NURSE PRACTITIONER 02/28/17 documented as of this encounter
--- OUTSIDE RECORDS SUMMARY | 2024-10-26 08:20 | XMS_ITS | Encounter Summary ---
Author Organization [facility] Address [address] [place] [address]. [place], [place] [address] [place] [address] Care Team Providers Care Latin Professor Name Role Phone Dennis Doran MD Primary Care Provider [phone] Joann Marquez [facility]- Unavailable [phone] Reason for Visit * Reason Onset Date Comments Information 01/06/2022 Encounter Details Date Type Department Care Team ([facility] st Contact Info) Description 01/06/2022 [facility]phone [place] [facility] [address] [place] [address] Nima Hollis MD [address] [place] [address] Information Social History Tobacco Use [...] 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 * Collette Giles RN - 01/06/2022 2:41 PM CDT Left VM for Tank to come to procedure an hour earlier than what he was told for extra fluid due to his creatinine being abnormal. Needs to come at 6:30 am instead of 7:30 am. documented in this encounter Plan of Treatment Not on file documented as of this encounter Visit Diagnoses Not on filedocumented in this encounter Additional Health Concerns Infection Onset Date Last Indicated Resolved Time COVID-19 Rule Out 01/06/2022 01/06/2022 01/07/2022 2:32 PM CDT documented as of this encounter Care Teams Latin Professor Relationship Specialty Start Date End Date Dennis Doran MD PCP - General INTERNAL MEDICINE 02/28/17 10/23/23 Joann Marquez ANP- [address] [place] [address] [address] [place] [address] [place] Communications Editor NURSE PRACTITIONER 02/28/17 documented as of this encounter
--- OUTSIDE RECORDS SUMMARY | 2024-10-26 08:20 | XMS_ITS | Encounter Summary ---
Author Organization [facility] Address [address] [place] [address]. [place] [address] [place] [address] Care Team Providers Care Ladle Pourer Name Role Phone Denins Doran MD Primary Care Provider [phone] Joann Marquez Unavailable [phone] Reason for Visit * Reason Onset Date Comments Schedule Test 11/10/2021 Encounter Details Date Type Department Care Team ([facility] st Contact Info) Description 11/10/2021 Telephone [place] [facility] [address] [place] [address] Joann Marquez ANP-BC [address] [facility] [address] [place] [address] Schedule Test Social History Tobacco Use Types Packs/Day Years [...] 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 Yes 11/07/2021 3:01 PM AIR ROUTE CONTROLLER documented as of this encounter Progress Notes * Adilson Lund RN - 11/10/2021 12:50 PM CST Called pt, scheduled nuclear stress test for 11/30/21 at 1200, PHI. Instruction letter mailed. Pt to hold carvedilol the night before and morning of test. He agrees with time and date of test, V/U of all instructions Letter mailed Remind Me set ROUTE CONTROLLER documented in this encounter Plan of Treatment Not on file documented as of this encounter Visit Diagnoses Not on filedocumented in this encounter Care Teams Ladle Pourer Relationship Specialty Start Date End Date Dennis Doran MD PCP - General INTERNAL MEDICINE 02/28/17 10/23/23 Joann Marquez ANP- [address] [facility] [address] [place] [address] [place] Implementation Manager NURSE PRACTITIONER 02/28/17 documented as of this encounter
--- OUTSIDE RECORDS SUMMARY | 2024-10-26 08:20 | XMS_ITS | Encounter Summary ---
Author Organization [facility] Address [address] [place] [address]. [place] [address] [place] [address] Care Team Providers Care Apron Operator Name Role Phone Joann Marquez-BC Unavailable [phone] Denisha Hansen Primary Care Provider [phone] Reason for Visit * Reason Comments Follow Up Encounter Details Date Type Department Care Team ([facility] st Contact Info) Description 11/06/2023 8:30 AM REPAIR TECH [facility] [address] [place] [phone] Joann Marquez, AURELIANO-BC [address] [facility] [address] [place] [address] Follow Up Social History Tobacco Use Types [...] 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 Not on file Not on file Not on file Not on file Not on file Not on file documented as of this encounter Last Filed Vital Signs Vital Sign Reading Time Taken Comments Blood Pressure 132/76 11/06/2023 8:36 AM REPAIR TECH Pulse 81 11/06/2023 8:36 AM REPAIR TECH Temperature - - Respiratory Rate 16 11/06/2023 8:36 AM REPAIR TECH Oxygen Saturation 96% 11/06/2023 8:36 AM REPAIR TECH Inhaled Oxygen Concentration - - Weight 90.3 kg (199 lb) 11/06/2023 8:36 AM REPAIR TECH Height 180.3 cm (5' 11 ) 11/06/2023 8:36 AM REPAIR TECH Body Mass Index 27.75 11/06/2023 8:36 AM REPAIR TECH documented in this encounter Progress Notes * AURELIANO Mendenhall- - 11/06/2023 8:30 AM CST From: Joann Marquez LEI SELLER Collaborating Physician: Abhinav Gould MD Dear Dr. DENISHA HANSEN PA: Tank Kowalski was seen on 11/06/2023 at the [facility]. History of Present Illness: Tank Kowalski presents to clinic today for CAD. He has a history of coronary artery disease with previous stenting, hypertension, type 1 diabetes, dyslipidemia, remote stroke and ongoing tobacco use. Most recent cardiac catheterization was performed in [address] Hollis. He had a patent stent in the LAD. There was no other severe obstructive disease. He describes some improvement in his exertional chest pain with the addition of long-acting nitrate. Mr. Collinscribes that he continues to sometimes experience some mild chest tightness with activity. He said it always follows being dyspneic. It is relieved with rest. He thinks he has used a sublingual nitroglycerin once or twice in the last year. He does find himself wheezing at times and notessome gradual increase in exertional dyspnea over the last couple of years. He does have evidence ofCOPD and ongoing tobacco use. He denies orthopnea, PND, presyncope, syncope or edema. He denies symptoms of stroke. Documented in our record a history of stroke in approximately 2009. I do not have any imaging of the brain. I inquired with him if he was on antiplatelet therapy at the time of the neurologic event. He said he was not. He does not recall if he had confirmed stroke on imaging or based on clinical exam. He denies any residual neurologic symptoms. PLAN: Mr. Kowalski continues to experience chronic exertional dyspnea in the setting of COPD and will experience associated periodic chest tightness. His chest discomfort did improve some with the addition oflong-acting nitrate. He is not having any symptoms of escalating or unstable angina. I recommended advancing his isosorbide further to 60 mg daily. We discussed his antiplatelet therapy today. He does not have absolute indication that he has to be on Plavix over low dose aspirin. He has reported hxof CVA but tells me this was before he was placed on antiplatelet therapy and doesn't think he was treated with any antiplatelet therapy until he presented with VT a few years later. He said in the past he has had some GI upset with aspirin and feels like he tolerates Plavix well. Will continue current antiplatelet therapy with plavix monotherapy. If for any reason this needs held would substitute low dose aspirin until it can be resumed. He is not having any signs of bleeding. His blood pressure is mildly elevated on exam today, but he thinks it has been controlled. I did not advance antihypertensive therapy today. He has follow-up planned with his primary provider within the month. He describes tolerating the current combination therapy to treat his dyslipidemia without apparent side effects. I recommended follow-up lipid profile and CMP as well as CBC and these orders were provided to him. He plans to wait to do these until he sees his primary later this month as he anticipates having further follow-up of his diabetes at that time. I reinforced the goals of a heart healthy lifestyle. We spent more than 5 minutes discussing tobacco cessation. He understands the risks of continued smoking and potential benefit of complete smokingcessation. We discussed strategies that he has tried before and offered him some additional strategies he may employ. He certainly is demonstrating more motivation to quit. Orders Placed This Encounter CBC W/DIFF AUTOMATED COMPREHENSIVE METABOLIC PANEL LIPID PANEL isosorbide mononitrate ER (IMDUR) 60 MG 24 hr tablet clopidogrel (PLAVIX) 75 MG tablet carvedilol (COREG) 25 MG tablet atorvastatin (LIPITOR) 80 MG tablet I appreciated the opportunity to participate in the care of Tank Kowalski. Will plan for follow up in 1 year or sooner if cardiac concerns arise. Sincerely, Joann Marquez, LEI SELLER- Medications: Current Outpatient Medications: atorvastatin (LIPITOR) 80 MG tablet, Take 1 tablet (80 mg total) by mouth every evening., Disp: 90 tablet, Rfl: 0 carvedilol (COREG) 25 MG tablet, Take 1 tablet (25 mg total) by mouth 2 (two) times daily., Disp: 180 tablet, Rfl: 3 clopidogrel (PLAVIX) 75 MG tablet, Take 1 tablet (75 mg total) by mouth daily., Disp: 90 tablet, Rfl: 3 isosorbide mononitrate ER (IMDUR) 60 MG 24 hr tablet, Take 1 tablet (60 mg total) by mouth every morning., Disp: 90 tablet, Rfl: 3 ALPRAZolam 0.5 MG tablet, Take 0.5 mg by mouth nightly as needed. at bedtime., Disp: , Rfl: amlodipine (NORVASC) 10 MG tablet, Take 10 mg by mouth daily. , Disp: , Rfl: icosapent ethyl (VASCEPA) 1 G capsule, Take 2 capsules (2 g total) by mouth 2 (two) times daily. Take with food., Disp: 120 capsule, Rfl: 12 insulin lispro (HUMALOG) 100 UNIT/ML injection (VIAL), Inject into the skin see administration instructions. , Disp: , Rfl: nitroglycerin 0.4 MG SL tablet, Place 1 [...] mg by mouth daily., Disp: , Rfl: vitamin D2, ergocalciferol, 24503 UNITS capsule, Take 50,000 Units by mouth once a week., Disp: , Rfl: Review of patient's allergies indicates: Allergen Reactions Guaifenesin Swelling Simvastatin Myalgias Past Medical History: Diagnosis Date Anxiety CAD (coronary artery disease) Cancer ([facility]/HCC) ([facility]) Melanoma Chronic kidney disease CKD (chronic kidney disease) Colitis CVA (cerebral vascular accident) ([facility]LY [facility]) ([facility]) 2009 Diabetes ([facility]/HCC) ([facility] Diabetic retinopathy ([facility]/HCC) ([facility]) GERD (gastroesophageal reflux disease) Glaucoma History of coronary artery stent placement 2013 Hyperlipidemia Hypertension Lumbago Myocardial infarction ([facility]) Personal history of MRSA (methicillin resistant Staphylococcus aureus) MRSA abscess on the face(negative cultures in 2013) Past Surgical History: Procedure Laterality Date FRACTURE SURGERY HEART CATH 02/20/2014 Cardiac Cath HEART CATH 05/22/2018 HEART CATH 2015 SKIN BIOPSY TONSILLECTOMY XA CORONARY INTERVENTION 02/24/2014 MARTHA to the proximal LAD XA C POSS 01/09/2022 Social History Tobacco Use Smoking status: Every Day Packs/day: 2.00 Years: 30.00 Additional pack years: 0.00 Total pack years: 60.00 Types: Cigarettes Smokeless tobacco: Never Substance Use Topics Alcohol use: Yes Alcohol/week: 10.0 standard drinks of alcohol Types: 6 Cans of beer per week Comment: 4-6 weekly Drug use: No Family History Problem Relation Name Age of Onset Stent Mother Ruby 45 stents Heart Attack Mother Ruby Diabetes Mother Ruby Heart Disease Mother Ruby Hypertension Mother Ruby Valve Disease Sister Valve problem Coronary artery disease Other Family Status Relation Name Status Mother Ruby Alive Sister Alive Other Other Family history is positive for: Father Alive Brother Alive Review of Systems Constitutional: Positive [...] new or significant memory loss. Filed Vitals: 11/06/23 0836 BP: 132/76 Pulse: 81 Resp: 16 SpO2: 96% Weight: 90.3 kg (199 lb) Height: 1.803 m (5' 11 ) Cardiac [...] Comments: Diagnoses/Impression: 1. Coronary artery disease of cachil dehe artery of c[place]il dehe heart with stable angina pectoris (CMS/HCC) CBC W/DIFF AUTOMATED COMPREHENSIVE METABOLIC PANEL LIPID PANEL 2. Mixed hyperlipidemia CBC W/DIFF AUTOMATED COMPREHENSIVE METABOLIC PANEL LIPID PANEL 3. Primary hypertension CBC W/DIFF AUTOMATED COMPREHENSIVE METABOLIC PANEL LIPID PANEL 4. Tobacco use PCP: KAMI REILLY IR TECH documented in this encounter Plan of Treatment Not on file documented as of this encounter Procedures Procedure Name Priority Date/Time Associated Diagnosis Comments ELECTROCARDIOGRAM (NON MIDMARK ACQUIRED) Routine 11/06/2023 8:44 AM REPAIR TECH Coronary artery disease of c[place]il dehe artery of c[place]il dehe heart with stable angina pectoris documented in this encounter Results * (ABNORMAL) LIPID PANEL (01/15/2024) CHOLESTEROL 195 <200 HDL 39 >or =40 TRIGLYCERIDES 263 <150 NON HDL CHOLESTEROL 156 <130 CHOL/HDL RATIO 5.0 <5.0 LDL (CALCULATED) 118 <100 01/15/2024 us Joann [facility] Final Re sult * (ABNORMAL) COMPREHENSIVE METABOLIC PANEL (01/15/2024) SODIUM [...] 6.2 6.1 - 8.1 01/15/2024 Joann Marquez [facility] Final Re sult * CBC W/DIFF AUTOMATED (01/15/2024) WBC 6.9 [...] 83 0 - 200 01/15/2024 Joann Marquez [facility] Final Re sult * ELECTROCARDIOGRAM (11/06/2023 8:44 AM REPAIR TECH) 11/06/2023 8:44 AM REPAIR TECH Narrative [facility] - 11/06/2023 9:02 AM REPAIR TECH ? [facility] ?[address] [place], [place] ??[address] ? Test Date: ?2023-11-06 Pat Name: ? TANK CAMPBELLJOSE ANGEL ?Department: ?? 105 ? Room: ? Gender: ? Male ? Printing Agent: ?? [email or web address] : ?1975 ? Requested By: ABHINAV GOULD Order Number: [id number] ?Reading MD: ?? Abhinav Gould ? Measurements Intervals ?[place] ? Rate: ? 74 ? P: ?33 MD: ? 130 ?QRS: ?30 QRSD: ? 84 ? T: ?55 QT: ? 373 ? QTc: ?414 ? Interpretive Statements SINUS RHYTHM po SEPTAL MYOCARDIAL INFARCTION, OF INDETERMINATE AGE IR TECH Procedure Note Abhinav Gould MD - 11/06/2023 [facility], [facility] [address] [place] [address] Test Date: 2023-11-06 Pat Name: TANK KOWALSKI Department: 105 Room: Gender: Male Printing Agent: fili : 1975 Requested By: ABHINAV GOULD Order Number: [id number] Reading MD: Abhinav Gould Measurements Intervals [place] Rate: 74 P: 33 MD: 130 QRS: 30 QRSD: 84 T: 55 QT: 373 QTc: 414 Interpretive Statements SINUS RHYTHM po SEPTAL MYOCARDIAL INFARCTION, OF INDETERMINATE AGE IR TECH us Abhinav Gould MD PROCEDURES-ORDERABLE NO CHARGE F inal Result [facility] documented in this encounter Visit Diagnoses Diagnosis Coronary artery disease of cachil dehe artery of c[place]il dehe heart with stable angina pectoris (CMS/HCC)- Primary Mixed hyperlipidemia Primary hypertension Unspecified essential hypertension Tobacco use Tobacco use disorder documented in this encounter Care Teams Apron Operator Relationship Specialty Start Date End Date Denisha Hansen PA [address] [place] [address] PCP - General PHYSICIAN LATHE MACHINIST 10/24/23 Joann Marquez, ANP-BC [address] [facility] [address] [place] [address] [place] Salesperson Shoes NURSE PRACTITIONER 02/28/17 documented as of this encounter
--- OUTSIDE RECORDS SUMMARY | 2024-10-26 08:20 | XMS_ITS | Encounter Summary ---
Author Organization [facility] Address [address] [place] [address]. 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 No / Unsure 11/30/2021 11:51 AM LMSW documented as of this encounter Plan of Treatment Not on file documented as of this encounter Visit Diagnoses Not on filedocumented in this encounter Care Teams Cement Finisher Relationship Specialty Start Date End Date Dennis Doran MD PCP - General INTERNAL MEDICINE 02/28/17 10/23/23 Joann Marquez ANP-BC [address] [facility] [address] [place] [phone] [place] Abattoir Supervisor NURSE PRACTITIONER 02/28/17 documented as of this encounter
--- OUTSIDE RECORDS SUMMARY | 2024-10-26 08:20 | XMS_ITS | Encounter Summary ---
Author Organization [facility] Address [facility] [place] [address] [place] [address] Care Team Providers Care Artificial Stone Setter Name Role Phone Dennis Doran MD Primary Care Provider [phone] Joann Marquez Unavailable Reason for Visit * Reason Onset Date Comments Follow Up Call 03/01/2021 Encounter Details Date Type Department Care Team ([facility] st Contact Info) Description 03/01/2021 Telephone [facility] [address] [place] [address] Joann Marquez ANP-ERICA [address] [facility] [address] [place] [address] Follow Up Call Social History Tobacco Use Types Packs/Day [...] 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 Letter mailed. No further attempts will be made regarding labs. * Rena Jones RN - 03/23/2021 3:21 PM CDT Tried to call pt again. Left message for a return call. * Rena Jones RN - 03/18/2021 2:25 PM CDT Called PCP office for labs. They state pt did not have labs there this week. Attempted to call pt. Left message for a return call to discuss. * Kelsey Marsh LPN - 03/09/2021 2:19 PM CDT Called pt on cell phone, he has not had labs done, he has appt with PCP next Wed and will get done then. Aware we will look for them after that. He agrees. * Jennifer Bowman RN - 03/01/2021 9:07 AM CDT Message left for patient to return call regarding lab work that is overdo. documented in this encounter Plan of Treatment Not on file documented as of this encounter Visit Diagnoses Not on filedocumented in this encounter Care Teams Artificial Stone Setter Relationship Specialty Start Date End Date Dennis Doran MD PCP - General INTERNAL MEDICINE 02/28/17 10/23/23 Joann Marquez ANP- [address] [address] [place] Kitchen Food Assembler NURSE PRACTITIONER 02/28/17 documented as of this encounter
--- OUTSIDE RECORDS SUMMARY | 2024-10-26 08:20 | XMS_ITS | Encounter Summary ---
Author Organization [facility] Address [facility] [place] [address] [place] [address] Care Team Providers Care Decator Operator Name Role Phone Dennis Doran MD Primary Care Provider [phone] Joann Marquez Unavailable [phone] Reason for Visit * Reason Onset Date Comments Refill Request 11/02/2021 Encounter Details Date Type Department Care Team ([facility] st Contact Info) Description 11/02/2021 Telephone [facility] [address] [place] [address] Joann Marquez ANP-ERICA [address] [facility] [address] [place] [address] Refill Request Social History Tobacco Use Types [...] 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 No / Unsure 10/28/2021 11:15 AM PODIATRIC FOOT AND ANKLE SPECIALIST documented as of this encounter Progress Notes * Brooke Reyna RN - 11/02/2021 1:34 PM CST Patient called requesting a refill on his nitro. He states he forgot to ask Marlys to refill when he was on the phone with office. Will e-scribe 1 bottle with 1 refill ATRIC FOOT AND ANKLE SPECIALIST documented in this encounter Plan of Treatment Not on file documented as of this encounter Visit Diagnoses Not on filedocumented in this encounter Care Teams Decator Operator Relationship Specialty Start Date End Date Dennis Doran MD PCP - General INTERNAL MEDICINE 02/28/17 10/23/23 Joann Marquez ANP- [address] [facility] [address] [place] [address] [place] Automatic Dispenser Mechanic NURSE PRACTITIONER 02/28/17 documented as of this encounter
--- OUTSIDE RECORDS SUMMARY | 2024-10-26 08:20 | XMS_ITS | Encounter Summary ---
Author Organization [facility] Address [address] [place] [address]. [place], [place] [address] [place] [address] Care Team Providers Care Operations Intelligence Superintendent Name Role Phone Dennis Doran MD Primary Care Provider [phone] Joann Marquez [facility]- Unavailable [phone] Reason for Referral * Imaging (Routine) - Closed Specialty Diagnoses / Procedures Referred By Cheyanne puentes Referred To Contact RADIOLOGY Diagnoses Abnormal cardiovascular stress test Procedures XA [facility] POSS Nima Hollis MD [address] [place] [address] Phone: tel: fax: Referral ID Status Reason Start Date Expiration Date Visits Re quested Visits Authorized [id number] Closed 01/03/2022 04/05/2022 1 1 NAUTICAL ENGINEERING OFFICER Encounter Details Date Type Department Care Team (Late st Contact Info) Description 12/21/2021 Orders Only [facility] [address] [place] [phone] Nima Hollis MD [address] [place] [address] Social History Tobacco Use Types Packs/Day Years [...] 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 No / Unsure 12/19/2021 10:29 AM AERONAUTICAL ENGINEERING OFFICER documented as of this encounter Plan of Treatment Not on file documented as of this encounter Results * XA [facility] POSS (01/09/2022 10:12 AM CDT) Anatomical Region Laterality Modality Cardiac Explosives Operator 01/09/2022 9:30 AM CDT Nima Hollis MD BILLBOARD ERECTOR Final Result * (ABNORMAL) BASIC METABOLIC PANEL (01/06/2022 11:51 AM CDT) [facility] GLUCOSE 157(H) 70 - 99 MG/DL 01/06/2022 12:21 PM CDT [facility] BUN 38(H) 7 - 18 MG/DL 01/06/2022 12:21 PM CDT [facility] CREATININE S/P/B 2.29(H) 0.50 - 1.20 MG/DL 01/06/2022 12:21 PM CDT [facility] SODIUM S/P/B 137 136 - 145 MMOL/L 01/06/2022 12:21 PM CDT [facility] POTASSIUM S/P/B 4.6 3.5 - 5.1 MMOL/L 01/06/2022 12:21 PM CDT [facility] CHLORIDE S/P/B 106 100 - 108 MMOL/L 01/06/2022 12:21 PM CDT [facility] CO2 20.8(L) 21.0 - 32.0 MMOL/L 01/06/2022 12:21 PM CDT [facility] CALCIUM S/P/B 8.5 8.5 - 10.1 MG/DL 01/06/2022 12:21 PM CDT [facility] ANION GAP 10.2 5.0 - 15.0 MMOL/L 01/06/2022 12:21 PM CDT [facility] BUN CREATININE RATIO 16.6 6 - 26 01/06/2022 12:21 PM CDT [facility] EGFR NON-AFR. AMER. 33(L) >90 ML/MIN/1.7 3 M2 01/06/2022 12:21 PM CDT [facility] EGFR AFR. AMER. 38(L) >90 ML/MIN/1.7 3 M2 01/06/2022 12:21 PM CDT [facility] Comment: NOTE: eGFR is not calculated for patients <18 years of age. This is an estimated GFR (CKD EPI) and should not be used for calculating drug doses. 01/06/2022 11:5 1 AM CDT us Nima Hollis MD LABORATORY Final Result [address] [place] [address], * (ABNORMAL) CBC, AUTO, NO DIFF (01/06/2022 11:51 AM CDT) WBC 8.1 4.5 - 11.0 x10'3/uL 01/06/2022 12:25 PM CDT [facility] RBC 4.16(L) 4.5 - 5.9 x10'6/uL 01/06/2022 12:25 PM CDT [facility] HGB 12.6 12.0 - 16.0 G/DL 01/06/2022 12:25 PM CDT [facility] HCT 37.4 37.0 - 49.0 % 01/06/2022 12:25 PM CDT [facility] MCV 89.9 80.0 - 100.0 FL 01/06/2022 12:25 PM CDT [facility] MCH 30.3 26.0 - 34.0 PG 01/06/2022 12:25 PM CDT [facility] MCHC 33.7 31.0 - 37.0 G/DL 01/06/2022 12:25 PM CDT [facility] RDW 13.4 11.6 - 14.8 % 01/06/2022 12:25 PM CDT [facility] PLT 191 140 - 415 x10'3/uL 01/06/2022 12:25 PM CDT [facility] MPV 11.3 7.0 - 12.0 FL 01/06/2022 12:25 PM CDT [facility] 01/06/2022 11:5 1 AM CDT us Nima Hollis MD LABORATORY Final Result [facility] [address] [place] [address], documented in this encounter Visit Diagnoses Diagnosis Abnormal cardiovascular stress test- Primary Other nonspecific abnormal cardiovascular system function study documented in this encounter Care Teams Operations Intelligence Superintendent Relationship Specialty Start Date End Date Dennis Doran MD PCP - General INTERNAL MEDICINE 02/28/17 10/23/23 Joann Marquez ANP- [address] [facility] [address] [place] [address] [place] Casework Specialist NURSE PRACTITIONER 02/28/17 documented as of this encounter
--- OUTSIDE RECORDS SUMMARY | 2024-10-26 08:20 | XMS_ITS | Encounter Summary ---
Author Organization [facility] Address [facility]6 [facility] [place] [address] [place] [address] Care Team Providers Care Occupational Health And Safety Manager Name Role Phone Dennis Doran MD Primary Care Provider [phone] Joann Marquez-ERICA Unavailable Reason for Visit * Reason Onset Date Comments Medication Request 10/01/2023 Encounter Details Date Type Department Care Team ([facility] st Contact Info) Description 10/01/2023 Telephone [facility] ld [address] [place] [address] Joann Marquez, AURELIANO-BC [address] [facility] [address] [place] [address] Medication Request Social History Tobacco [...] 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 AL PRODUCT MANAGER * Rosana Felipe - 10/01/2023 9:20 AM CST PCCLVOICEMAILMESSAGEPCCL VOICE MAIL DATE/TIME:10/01/23 @ 9:16am CALLER: patient #: [phone] PROVIDER/NEW PT: Joann Marquez REASON FOR CALL: vm says patient needs a prescription refill and needs to schedule an appointment REQUEST HANDLED AND HOW: IF NOT HANDLED, ENCOUNTER NOTE SENT TO: message to nurse board AL PRODUCT MANAGER documented in this encounter Plan of Treatment Not on file documented as of this encounter Visit Diagnoses Not on filedocumented in this encounter Care Teams Occupational Health And Safety Manager Relationship Specialty Start Date End Date Dennis Doran MD PCP - General INTERNAL MEDICINE 02/28/17 10/23/23 Joann Marquez, ANP- [address] [facility] [address] [place] [address] Orla Pharmaceutical Scientist NURSE PRACTITIONER 02/28/17 documented as of this encounter
--- OUTSIDE RECORDS SUMMARY | 2024-10-26 08:20 | XMS_ITS | Encounter Summary ---
Author Organization [facility] Address [address] [place] [address]. [place], [place] [address] [place] [address] Care Team Providers Care Substation Designer Name Role Phone Dennis Doran MD Primary Care Provider [phone] Joann Marquez ANP-BC Unavailable [phone] Encounter Details Date Type Department Care Team (Late st Contact Info) Description 01/05/2022 Pre-Procedure Call 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 No / Unsure 12/19/2021 10:29 AM VENEER TAPING MACHINE OFFBEARER documented as of this encounter Plan of Treatment Not on file documented as of this encounter Results * PRE-SURGICAL/PRE-PROCEDURE CORONAVIRUS (COVID 19) (01/06/2022 11:51 AM CDT) SPEC DESCRIPTION NASAL 01/07/20 11:48 AM CDT [facility] CORONAVIRUS SARS COV 2 PCR (RESP) NEGATIVE NEGATIVE 01/07/2022 2:32 PM CDT [facility] Comment: THE SARS-CoV-2 TEST HAS BEEN AUTHORIZED BY THE FDA UNDER AN EUA FOR USE BY AUTHORIZED LABORATORIES. PERFORMED BY NUCLEIC ACID AMPLIFICATION PCR FIRST TEST UNKNOWN 01/06/2022 11:48 AM CDT [facility] EMPLOYED IN HEALTHCARE NO 01/06/2022 11:48 AM CDT [facility] SYMPTOMATIC DEFINED BY CDC UNKNOWN 01/06/2022 11:48 AM CDT [facility] HOSPITALIZATION STATUS NO 01/06/2022 11:48 AM CDT [facility] RESIDENT OF [facility] CARE NO 01/06/2022 11:48 AM CDT [facility] NASAL STRUCTURE / Unknown 01/06/2022 11:51 AM CDT Nima Hollis MD MICROBIOLOGY - GENERAL ORDERAB LES Final Result Performing Organization Address [facility]/State/ZIP Co de Phone Number [address] [address], [facility] [address] [place] [address], documented in this encounter Visit Diagnoses Diagnosis Pre-operative laboratory examination- Primary Pre-procedural laboratory examination documented in this encounter Care Teams Substation Designer Relationship Specialty Start Date End Date Dennis Doran MD PCP - General INTERNAL MEDICINE 02/28/17 10/23/23 Joann Marquez ANP- [address] [phone] [place] Land Reclamation Specialist NURSE PRACTITIONER 02/28/17 documented as of this encounter
--- OUTSIDE RECORDS SUMMARY | 2024-10-26 08:20 | XMS_ITS | Encounter Summary ---
Author Organization [facility] Address [address] [place] [address]. 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 No / Unsure 12/19/2021 10:29 AM STORE CUSTODIAN documented as of this encounter Plan of Treatment Not on file documented as of this encounter Visit Diagnoses Not on filedocumented in this encounter Additional Health Concerns Infection Onset Date Last Indicated Resolved Time COVID-19 Rule Out 01/06/2022 01/06/2022 01/07/2022 2:32 PM CDT documented as of this encounter Care Teams Open Soaper Tender Relationship Specialty Start Date End Date Dennis Doran MD PCP - General INTERNAL MEDICINE 02/28/17 10/23/23 Denisha Hansen PA [address] [place] [address] PCP - General PHYSICIAN INSPECTOR PURCHASED PARTS 10/24/23 Joann Marquez, ANP- [address] [place] [address] [address] [place] [address] [place] Multiplex Operator NURSE PRACTITIONER 02/28/17 documented as of this encounter
--- OUTSIDE RECORDS SUMMARY | 2024-10-26 08:20 | XMS_ITS | Encounter Summary ---
Author Organization [facility] Address [address] [place] [address]. [place], [place] [address] [place] [address] Care Team Providers Care Cutlet Maker Pork Name Role Phone Dennis Doran MD Primary Care Provider [phone] Joann Marquez [facility]- Unavailable [phone] Encounter Details Date Type Department Care Team (Late st Contact Info) Description 04/18/2022 Orders Only [facility] [address] [place] [phone] Dieter Arechiga MD [address] [facility] [address] [place] [phone] Social History Tobacco Use Types Packs/Day Years [...] 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
--- OUTSIDE RECORDS SUMMARY | 2024-10-26 08:20 | XMS_ITS | Encounter Summary ---
Author Organization [facility] Address [address] [place] [address]. [place], [place] [address] [place] [address] Care Team Providers Care Hand Ironer Name Role Phone Joann Marquez Bernard [facility]- Unavailable [phone] Denisha Hansen Primary Care Provider [phone] Reason for Referral * Imaging (Routine) - Closed Specialty Diagnoses / Procedures Referred By Cheyanne puentes Referred To Contact RADIOLOGY Diagnoses Localized swelling, mass and lump, neck Procedures CT SOFT TISSUE NECK WO CON Denisha Hansen PA [facility] [place] [address] Phone: tel: fax: Referral ID Status Reason Start Date Expiration Date Visits Re quested Visits Authorized [id number] Closed CT 09/27/2023 12/26/2023 1 1 OSAL SPECIALIST Reason for Visit * Imaging (Routine) - Closed Specialty Diagnoses / Procedures Referred By Cheyanne puentes Referred To Contact RADIOLOGY Diagnoses Localized swelling, mass and lump, neck Procedures CT SOFT TISSUE NECK WO CON Denisha Hansen PA [facility] [place] [address] Phone: tel: fax: Referral ID Status Reason Start Date Expiration Date Visits Re quested Visits Authorized [id number] Closed CT 09/27/2023 12/26/2023 1 1 Encounter Details Date Type Department Care Team (Latest Contact Info) Description 10/24/2023 8:55 AM PROPOSAL SPECIALIST - 10/24/2023 11:59 PM PROPOSAL SPECIALIST 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 at bedtime. 11/02/2021 amlodipine (NORVASC) 10 MG tablet Take 10 mg by mouth daily. 09/24/2015 icosapent ethyl (VASCEPA) 1 G capsule Take [...] daily. 12/07/2021 atorvastatin (LIPITOR) 80 MG tablet TAKE 1 TABLET(80 MG) BY MOUTH EVERY EVENING 90 tablet 1 10/09/2022 11/06/19 24 carvedilol 25 MG tablet Take 1 tablet (25 mg total) by mouth 2 (two) times daily. 60 tablet 11 05/04/2017 11/06/19 24 clopidogrel (PLAVIX) 75 MG tablet Take 1 tablet (75 mg total) by mouth daily. 90 tablet 10/02/2023 11/06/19 isosorbide mononitrate ER (IMDUR) 30 MG 24 hr tablet TAKE 1 TABLET BY MOUTH EVERY MORNING 90 tablet 1 11/13/2022 11/02/19 nitroglycerin 0.[address] 1 tablet (0.4 mg total) under the tongue every 5 (five) minutes as needed for Chest Pain. Maximum of 3 doses. 30 tablet 1 11/02/2021 06/04/20 vitamin D2, ergocalciferol, 66143 UNITS capsule Take 50,000 Units by mouth once a week. 10/28/2021 06/11/20 24 documented as of this encounter Plan of Treatment Not on file documented as of this encounter Procedures Procedure Name Priority Date/Time Associated Diagnosis Comments CT SOFT TISSUE NECK WO CON Routine 10/24/2023 9:30 AM PROPOSAL SPECIALIST Localized swelling, mass and lump, neck documented in this encounter Results * CT SOFT TISSUE NECK WO CON (10/24/2023 9:30 AM PROPOSAL SPECIALIST) Anatomical Region Laterality Modality Neck Computed Tomogra phy 10/26/2023 9:20 AM PROPOSAL SPECIALIST Impressions 10/26/2023 9:28 AM PROPOSAL SPECIALIST IMPRESSION: 1. Well circumscribed low density 1.8 x 1.4 x 1.6 cm lesion within the submental subcutaneous soft tissues, likely corresponding to the palpable abnormality. This has slightly increased in size since 2021. Findings may reflect an epidermal inclusion or epidermoid cyst. This would be amenable for percutaneous sampling for definitive diagnosis. 2. No other obvious mass lesion or suspicious lymphadenopathy elsewhere in the neck, considering constraints of unenhanced technique. Ordered By: DENISHA HANSEN Interpreted By: Didier Mckeon MD, 10/26/2023 9:20 AM Narrative 10/26/2023 9:28 AM PROPOSAL SPECIALIST INDICATION: Anterior neck lump. EXAMINATION: Unenhanced CT of the neck. TECHNIQUE: Unenhanced CT examination of the neck was performed with axial and multiplanar reformatted images obtained. A dose lowering technique was used for this procedure, which may include, but is not limited to, dose reduction technique, automated exposure control, the use of iterative reconstruction, and ALARA (As Low As Reasonably Achievable) / Image Gently techniques. COMPARISON: CT chest 01/20/2022 FINDINGS: Note: Sensitivity of neck CT is diminished without intravenous contrast. A cutaneous marker is seen overlying the submental region. There is a 1.8 x 1.4 x 1.6 cm well-circumscribed low-density lesion within the subcutaneous soft tissues immediately subjacent to the cutaneous marker (axial image 53 of 94, series 2; coronal image 31 of 81, series 4). This has slightly increased in size since chest CT 01/20/2022 when it measured 1.4 x 1.1 x 1.2 cm. No surrounding inflammatory changes. Streak artifact from dental amalgam/hardware partially obscures assessment. Dental caries and periodontal decay noted. The visualized oral cavity, nasopharynx, oropharynx, hypopharynx, and larynx are grossly unremarkable, considering constraints of unenhanced technique. Major salivary glands and thyroid gland grossly unremarkable. No bulky adenopathy elsewhere in the neck. Carotid atherosclerosis. Partially imaged portions of the intracranial compartment reveal a left middle cranial fossa arachnoid cyst. Cranial atherosclerotic calcifications. Mild mucosal thickening in the paranasal sinuses. Mastoid air cells clear. Old nasal bone fractures. Visualized orbits unremarkable. Partially imaged portions of the upper chest reveal no acute findings. Atherosclerotic calcifications noted along the thoracic aorta and mediastinal great vessels. Degenerative changes seen in the spine. Procedure Note Didier Mckeon MD - 10/26/2023 INDICATION: Anterior neck lump. EXAMINATION: Unenhanced CT of the neck. TECHNIQUE: Unenhanced CT examination of the neck was performed with axial andmultiplanar reformatted images obtained. A dose lowering technique was used for this procedure, which may include,but is not limited to, dose reduction technique, automated exposurecontrol, the use of iterative reconstruction, and ALARA (As Low AsReasonably Achievable) / Image Gently techniques. COMPARISON: CT chest 01/20/2022 FINDINGS: Note: Sensitivity of neck CT is diminished without intravenous contrast. A cutaneous marker is seen overlying the submental region. There is a 1.8x 1.4 x 1.6 cm well-circumscribed low-density lesion within thesubcutaneous soft tissues immediately subjacent to the cutaneous marker(axial image 53 of 94, series 2; coronal image 31 of 81, series 4). Thishas slightly increased in size since chest CT 01/20/2022 when it measured1.4 x 1.1 x 1.2 cm. No surrounding inflammatory changes. Streak artifact from dental amalgam/hardware partially obscuresassessment. Dental caries and periodontal decay noted. The visualized oralcavity, nasopharynx, oropharynx, hypopharynx, and larynx are grosslyunremarkable, considering constraints of unenhanced technique. Majorsalivary glands and thyroid gland grossly unremarkable. No bulkyadenopathy elsewhere in the neck. Carotid atherosclerosis. Partially imaged portions of the intracranial compartment reveal a leftmiddle cranial fossa arachnoid cyst. Cranial atheroscleroticcalcifications. Mild mucosal thickening in the paranasal sinuses. Mastoidair cells clear. Old nasal bone fractures. Visualized orbitsunremarkable. Partially imaged portions of the upper chest reveal no acute findings.Atherosclerotic calcifications noted along the thoracic aorta andmediastinal great vessels. Degenerative changes seen in the spine. IMPRESSION: 1. Well circumscribed low density 1.8 x 1.4 x 1.6 cm lesion within thesubmental subcutaneous soft tissues, likely corresponding to the palpableabnormality. This has slightly increased in size since 2021. Findings mayreflect an epidermal inclusion or epidermoid cyst. This would be amenablefor percutaneous sampling for definitive diagnosis. 2. No other obvious mass lesion or suspicious lymphadenopathy elsewhere inthe neck, considering constraints of unenhanced technique. Ordered By: DENISHA HANSEN Interpreted By: Didier Mckeon MD, 10/26/2023 9:[address] Final Result documented in this encounter Visit Diagnoses Diagnosis Localized swelling, mass and lump, neck Swelling, mass, or lump in head and neck documented in this encounter Care Teams Hand Ironer Relationship Specialty Start Date End Date Denisha Hansen PA [address] [place] [address] PCP - General PHYSICIAN MOLD POLISHER 10/24/23 Joann Marquez, ANP- [address] [facility] [address] [place] [phone] [place] Jacker NURSE PRACTITIONER 02/28/17 documented as of this encounter
--- OUTSIDE RECORDS SUMMARY | 2024-10-26 08:20 | XMS_ITS | Encounter Summary ---
Author Organization [facility] Address [facility]6 [facility] [place] [address] [place] [address] Care Team Providers Care Trench Pipe Layer Name Role Phone Dennis Doran MD Primary Care Provider [phone] Joann Marquez Unavailable [phone] Reason for Visit * Reason Onset Date Comments Record Request 01/21/2021 Encounter Details Date Type Department Care Team ([facility] st Contact Info) Description 01/21/2021 Telephone [facility] [address] [place] [address] Joann Marquez ANP-BC [address] [facility] [address] [place] [address] Record Request Social History Tobacco Use Types Packs/Day [...] 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 No / Unsure 01/21/2021 12:51 PM CDT documented as of this encounter Progress Notes * Rach Machado - 02/18/2021 2:12 PM CDT 's office reports patient still has not had labs done. * Larissa Davis RN - 01/31/2021 12:06 PM CDT I called pt number, no answer or voicemail. Lab orders mailed to pt with letter to have done. Reminder entered. * MARIO Mendenhall - 01/30/2021 12:15 PM CDT Please advise pt to have labs. Orders for CBC, CMP and fasting lipid with direct LDL entered in Epic. * Katherine Stauffer - 01/24/2021 1:35 PM CDT CMP & CBC results of 02/25/20 received, no lipids. Results placed in Shea Marquez NP's IN box. * Katherine Stauffer - 01/24/2021 10:17 AM CDT Requested most recent CBC, CMP, and lipid panel from Dr. Doran's office to be faxed to [phone]. * MARIO Mendenhall - 01/21/2021 3:39 PM CDT Please request most recent CBC, CMP, Lipid from primary service. Thanks. documented in this encounter Plan of Treatment Not on file documented as of this encounter Visit Diagnoses Diagnosis Coronary artery disease involving eastern [place] coronary artery of eastern [place] heart without angina pectoris- Primary Essential hypertension Unspecified essential hypertension Hyperlipidemia, unspecified hyperlipidemia type Encounter for long-term current use of medication documented in this encounter Care Teams Trench Pipe Layer Relationship Specialty Start Date End Date Dennis Doran MD PCP - General INTERNAL MEDICINE 02/28/17 10/23/23 Joann Marquez, ANP- [address] [facility] [address] [place] [phone] [place] Commercial Marketing Specialist NURSE PRACTITIONER 02/28/17 documented as of this encounter
--- OUTSIDE RECORDS SUMMARY | 2024-10-26 08:20 | XMS_ITS | Encounter Summary ---
Author Organization [facility] Address [facility]. 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
--- OUTSIDE RECORDS SUMMARY | 2024-10-26 08:20 | XMS_ITS | Encounter Summary ---
Author Organization [facility] Address [facility]6 [facility]. 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
--- OUTSIDE RECORDS SUMMARY | 2024-10-26 08:20 | XMS_ITS | Encounter Summary ---
Author Organization [facility] Address [address] [place] [address]. 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 Not on file Not on file Not on file Not on file Not on file Not on file documented as of this encounter Plan of Treatment Not on file documented as of this encounter Procedures Procedure Name Priority Date/Time Associated Diagnosis Comments HEMOGLOBIN, GLYCOSYLATED Routine 04/20/2023 COMPREHENSIVE METABOLIC PANEL Routine 04/20/2023 THYROID STIM HORMONE TSH Routine 04/20/2023 MAGNESIUM Routine 04/20/2023 LIPID PANEL Routine 08/09/2022 documented in this encounter Results * (ABNORMAL) COMPREHENSIVE METABOLIC PANEL (04/20/2023) SODIUM S/P/B 135 GLUCOSE 224(A) <=99 mg/dL AST 14 BUN 31(A) <=25 CREATININE S/P/B 2.85(A) 0.7 - 1.3 CALCIUM S/P/B 8.4(A) >=8.6 POTASSIUM S/P/B 3.7 CHLORIDE S/P/B 104 ALT 13 GFR ESTIMATE 26 Narrative Resulting Agency Comment Result [facility] Dennis Doran MD LABORATORY Final Result * (ABNORMAL) HEMOGLOBIN, GLYCOSYLATED (04/20/2023) HGB A1C 8.3(A) <=5.7 % Narrative Resulting Agency Comment Result [facility] Dennis Doran MD LABORATORY Final Result * THYROID STIM HORMONE, TSH (04/20/2023) TSH 2.71 Narrative Resulting Agency Comment Result [facility] Dennis Doran MD LABORATORY Final Result * MAGNESIUM (04/20/2023) MAGNESIUM 1.6 Narrative Resulting Agency Comment Result [facility] Dennis Doran MD LABORATORY Final Result * (ABNORMAL) LIPID PANEL (08/09/2022) CHOLESTEROL 239(A) <=200 TRIGLYCERIDES 353(A) <=150 HDL 34(A) >=40 LDL (CALCULATED) 151(A) <=70 Narrative Resulting Agency Comment Result [facility] us Dennis Doran MD LABORATORY Final Result documented in this encounter Visit Diagnoses Not on filedocumented in this encounter Care Teams Employment Program Representative Relationship Specialty Start Date End Date Dennis Doran MD PCP - General INTERNAL MEDICINE 02/28/17 10/23/23 Joann Marquez, ANP- [address] [facility] [address] [place] [address] [place] Junior Data Analyst NURSE PRACTITIONER 02/28/17 documented as of this encounter
--- OUTSIDE RECORDS SUMMARY | 2024-10-26 08:20 | XMS_ITS | Encounter Summary ---
Author Organization [facility] Address [address] [place] [address]. 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 Not on file Not on file Not on file Not on file Not on file Not on file documented as of this encounter Plan of Treatment Not on file documented as of this encounter Procedures Procedure Name Priority Date/Time Associated Diagnosis Comments ECG GENERIC (SCAN ORDER) Routine 10/26/2020 documented in this encounter Results * ECG (10/26/2020) us Documents Scanned SCANNING Final Result [facility] documented in this encounter Visit Diagnoses Not on filedocumented in this encounter Care Teams Mobile Home Park Manager Relationship Specialty Start Date End Date Dennis Doran MD PCP - General INTERNAL MEDICINE 02/28/17 10/23/23 Joann Marquez, AURELIANO- [address] [facility] [address] [place] [phone] [place] Rotary Drier Feeder NURSE PRACTITIONER 02/28/17 documented as of this encounter
--- OUTSIDE RECORDS SUMMARY | 2024-10-26 08:20 | XMS_ITS | Encounter Summary ---
Author Organization [facility] Address [address] [place] [address]. 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
--- OUTSIDE RECORDS SUMMARY | 2024-10-26 08:20 | XMS_ITS | Encounter Summary ---
Author Organization [facility] Address [address] [place] [address]. [place], [place] [address] [place] [address] Care Team Providers Care Cylinder Honer Name Role Phone Denins Doran MD Primary Care Provider [phone] Ruthy Norris-ERICA Unavailable [phone] Reason for Visit * Imaging (Routine) - Closed Specialty Diagnoses / Procedures Referred By Cheyanne puentes Referred To Contact RADIOLOGY Diagnoses Coronary artery disease of [place] artery of [place] heart with stable angina pectoris ([facility]) Procedures NM PHARM NUC STRESS TEST 2DAY NM EXER NUC STRESS TEST 1DAY Ruthy Norris ANP-BC [address] [id number] [place] [address] Phone: tel: fax: Referral ID Status Reason Start Date Expiration Date Visits Re quested Visits Authorized [id number] Closed 11/08/2021 12/09/2022 1 2 Encounter Details Date Type Department Care Team (Latest Contact Info) Description 12/02/2021 9:21 AM WATER RESOURCE AGENT - 12/02/2021 9:22 AM [facility] Hospital Encounter [facility] Nuclear Cardiology 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 No / Unsure 12/02/2021 9:21 AM WATER RESOURCE AGENT documented as of this encounter Medications at [...] mouth every evening. 90 tablet 1 11/08/2021 2 carvedilol 25 MG tablet Take 1 tablet (25 mg total) by mouth 2 (two) times daily. 60 tablet 11 05/04/2017 4 CLOPIDOGREL 75 MG tablet TAKE 1 TABLET(75 MG) BY MOUTH DAILY 90 tablet 3 06/28/2021 2 esomeprazole (NEXIUM) 40 MG capsule Take 1 tablet by mouth daily. 02/23/2014 2 nitroglycerin 0.[address] 1 tablet (0.4 mg total) under the tongue every 5 (five) minutes as needed for Chest Pain. Maximum of 3 doses. 30 tablet 1 11/02/2021 4 vilazodone (VIIBRYD) 40 MG tablet Viibryd (vilazodone) tablet 40 mg; take 1 tablet by mouth once a day with meal; 0; 23-Feb-2014; Active 02/23/2014 12/21/19 2 2 vitamin D2, ergocalciferol, 23755 UNITS capsule Take 50,000 Units by mouth once a week. 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 St.Date: ?? 12/02/2021 ? Refer.: ??RUTHY NORRIS ? Exam Time: 12:00:00 PM ? Study Type:NC Ht Muscle Image SPECT Multi Nuclear Height: ?71in ?Weight: ?196lb ? BSA: ? 2.09 m2 ?Age: ??1975,46Y ? Sex: ? MALE ?Sonogrphr: Jose Rogers, PRODUCE BUYER ? Pat. Stat.:Outpatient ? Reason for Study:coronary artery disease of [place]ki[place] artery of [place]ki[place] heart ??with stable angina pectoris Procedures: Two Day Study, 11/30/2021 and 12/02/2021, Stress Gated SPECT, Rest SPECT, Prone SPECT, Regadenoson Stress Race: ?W ? Risk Factors:CAD, CVA, Diabetes, GERD, colitis, hyperlipidemia, htn, lumbago Surgery: ?? Coronary Stent, heart cath x 3, coronary intervention Medications:Lipitor, Nexium, Nitroglycerin, Norvasc, Carvedilol, atorvastatin, palvix ++++++++++++++++++++++++++++++++++++ SUMMARY: ++++++++++++++++++++++++++++++++++++ Negative electrocardiographic portion of regadenoson stress test. Nondiagnostic electrocardiographic portion of exercise stress test on 11/30/21 due to low achieved heart rate at 6 minutes with no angina and no ischeic electrocardiographic changes. The patient had complaints of chest pressure with regadenoson. Abnormal Perfusion Study. There is evidence of a medium area of mild to moderate intensity partially reversible defect consistent with ischemia and attenuation artifact in the inferolateral wall. There is evidence of a medium area of moderate intensity fixed defect consistent with infarction and attenuation in the inferior wall. Left ventricular EF is 62 %. The study quality is good. ++++++++++++++++++++++++++++++++++++ FINDINGS: ++++++++++++++++++++++++++++++++++++ Stress Findings: Negative electrocardiographic portion of regadenoson ?stress test. Nondiagnostic electrocardiographic ?portion of exercise stress test on 11/30/21 due to low ?acheived heart rate at 6 minutes with no angina and no ?ischeic electrocardiographic changes. The patient had ?complaints of chest pressure with regadenoson. Impr: ? Abnormal Perfusion Study. There is evidence of a medium area ?of mild to moderate intensity partially reversible defect ?consistent with ischemia and attenuation artifact in the ?inferolateral wall. There is evidence of a medium area of ?moderate intensity fixed defect consistent with infarction ?and attenuation in the inferior wall. Transient Ischemic Dilatation: The TID is 0.9. LV Perfusion Results: There is a moderate basal inferior, mid ?inferior, apical inferior perfusion defect during stress and ?rest.There is a moderate basal inferolateral perfusion ?defect during stress which improves with rest.There is a ?mild mid inferolateral perfusion defect during stress which ?normalizes with rest. Gated SPECT Results: Left ventricular EF is 62 %. There is post stress ?normal wall motion in all wylie. Study Quality/Artifacts: The study quality is good. Comparison to Previous Study: None available. ++++++++++++++++++++++++++++++++++++ STRESS: ++++++++++++++++++++++++++++++++++++ Baseline Vital Signs: ?Intervention ??Regadenoson Baseline ECG Septal infarct ?Peak Dose ??0.4 mg Rest HR ?81 ?Atropine Administered: 0 Rest BP ?132/78 ?Duration ?? 06:00 Baseline Rhythm Normal sinus rhythm Stress Test Results: ? Max ST: ?0 mm Symptoms and Complications: Arrhythmias None Reason for Stopping Test: Protocol completed Stress Induced Symptoms: Chest pressure; Feels funny Other ?On 11/30/21 the patient walked the treadmill for 6 minutes and was unable to reach target heart rate due to shortness of breath and leg weakness/fatigue. Pt could not be converted to pharmacological due to caffeine on board. Minimal ST depression with exercise but not indicative of ischemia. Stress portion to be done on 12/02/21. ECG Findings: ??No ischemic S-T changes occurred with stress Signed 12/02/2021 03:09 PM Dieter Arechiga M.D. Procedure Note Dieter Arechiga MD - 12/02/2021 MYOCARDIAL PERFUSION SCAN Pat.Name: TANK KOWALSKI Pat.ID: [id number] St.Date: 12/02/2021 Refer.MD: RUTHY NORRIS Exam Time: 12:00:00 PM Study Type:NC Ht Muscle Image SPECT Multi Nuclear Height: 71in Weight: 196lb BSA: 2.09 m2 Age: 8 1975,46Y Sex: MALE Sonogrphr: Jose Rogers, [facility] Pat. Stat.:Outpatient Reason for Study:coronary artery disease of [place] artery of [place] heart with stable angina pectoris Procedures: Two Day Study, 11/30/2021 and 12/02/2021, Stress Gated SPECT, Rest SPECT, Prone SPECT, Regadenoson Stress Race: W Risk Factors:CAD, CVA, Diabetes, GERD, colitis, hyperlipidemia, htn, lumbago Surgery: Coronary Stent, heart cath x 3, coronary intervention Medications:Lipitor, Nexium, Nitroglycerin, Norvasc, Carvedilol, atorvastatin, palvix ++++++++++++++++++++++++++++++++++++ SUMMARY: ++++++++++++++++++++++++++++++++++++ Negative electrocardiographic portion of regadenoson stress test. Nondiagnostic electrocardiographic portion of exercise stress test on 11/30/21 due to low achieved heart rate at 6 minutes with no angina and no ischeic electrocardiographic changes. The patient had complaints of chest pressure with regadenoson. Abnormal Perfusion Study. There is evidence of a medium area of mild to moderate intensity partially reversible defect consistent with ischemia and attenuation artifact in the inferolateral wall. There is evidence of a medium area of moderate intensity fixed defect consistent with infarction and attenuation in the inferior wall. Left ventricular EF is 62 %. The study quality is good. ++++++++++++++++++++++++++++++++++++ FINDINGS: ++++++++++++++++++++++++++++++++++++ Stress Findings: Negative electrocardiographic portion of regadenoson stress test. Nondiagnostic electrocardiographic portion of exercise stress test on 11/30/21 due to low acheived heart rate at 6 minutes with no angina and no ischeic electrocardiographic changes. The patient had complaints of chest pressure with regadenoson. Impr: Abnormal Perfusion Study. There is evidence of a medium area of mild to moderate intensity partially reversible defect consistent with ischemia and attenuation artifact in the inferolateral wall. There is evidence of a medium area of moderate intensity fixed defect consistent with infarction and attenuation in the inferior wall. Transient Ischemic Dilatation: The TID is 0.9. LV Perfusion Results: There is a moderate basal inferior, mid inferior, apical inferior perfusion defect during stress and rest.There is a moderate basal inferolateral perfusion defect during stress which improves with rest.There is a mild mid inferolateral perfusion defect during stress which normalizes with rest. Gated SPECT Results: Left ventricular EF is 62 %. There is post stress normal wall motion in all wylie. Study Quality/Artifacts: The study quality is good. Comparison to Previous Study: None available. ++++++++++++++++++++++++++++++++++++ STRESS: ++++++++++++++++++++++++++++++++++++ Baseline Vital Signs: Intervention Regadenoson Baseline ECG Septal infarct Peak Dose 0.4 mg Rest HR 81 Atropine Administered: 0 Rest BP 132/78 Duration 06:00 Baseline Rhythm Normal sinus rhythm Stress Test Results: Max ST: 0 mm Symptoms and Complications: Arrhythmias None Reason for Stopping Test: Protocol completed Stress Induced Symptoms: Chest pressure; Feels funny Other On 11/30/21 the patient walked the treadmill for 6 minutes and was unable to reach target heart rate due to shortness of breath and leg weakness/fatigue. Pt could not be converted to pharmacological due to caffeine on board. Minimal ST depression with exercise but not indicative of ischemia. Stress portion to be done on 12/02/21. ECG Findings: No ischemic S-T changes occurred with stress Signed 12/02/2021 03:09 PM Dieter Arechiga M.D. 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
--- OUTSIDE RECORDS SUMMARY | 2024-10-26 08:20 | XMS_ITS | Encounter Summary ---
Author Organization [facility] Address [address] [place] [address]. [place], [place] [address] [place] [address] Care Team Providers Care Webbing Inspector Name Role Phone Dennis Crump MD Primary Care Provider [phone] Joann Marquez [facility]- Unavailable [phone] Reason for Visit * Reason Comments Follow Up CAD Encounter Details Date Type Department Care Team (Late st Contact Info) Description 12/20/2021 10:30 AM CHILD CENTER ASSISTANT Office Visit [facility] [address] [place] [address] Dieter Arechiga MD [address] [place] [phone] Follow Up (CAD) Social History Tobacco [...] 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 No / Unsure 12/19/2021 10:29 AM CHILD CENTER ASSISTANT documented as of this encounter Last Filed Vital Signs Vital Sign Reading Time Taken Comments Blood Pressure 110/60 12/20/2021 10:28 AM CHILD CENTER ASSISTANT Pulse 70 12/20/2021 10:28 AM CHILD CENTER ASSISTANT Temperature - - Respiratory Rate 16 12/20/2021 10:28 AM CHILD CENTER ASSISTANT Oxygen Saturation - - Inhaled Oxygen Concentration - - Weight 89.6 kg (197 lb 9.6 oz) 12/20/2021 10:28 AM CHILD CENTER ASSISTANT Height 180.3 cm (5' 11 ) 12/20/2021 10:28 AM CHILD CENTER ASSISTANT Body Mass Index 27.56 12/20/2021 10:28 AM CHILD CENTER ASSISTANT documented in this encounter Progress Notes * Dieter Wade MD - 12/20/2021 10:30 AM CST Reason for Visit: Follow Up (CAD) History [...] Mr. Kowalski including the risks of mortality, HI, CVA, bleeding, infection, vascular comp lications and [...] Disp: , Rfl: ??? vitamin D2, ergocalciferol, 58642 UNITS capsule, Take 50,000 Units by mouth [...] Comments: Diagnoses/Impression: 1. Coronary artery disease involving [place] coronary artery of [place] heart without angina pectoris 2. Primary hypertension 3. Hyperlipidemia, unspecified hyperlipidemia type 4. Tobacco use Referring Provider: Dennis Crump MD PCP: DENNIS CRUMP MD D CENTER ASSISTANT documented in this encounter Plan of Treatment Not on file documented as of this encounter Visit Diagnoses Diagnosis Coronary artery disease involving [place] coronary artery of [place] heart without angina pectoris- Primary Primary hypertension Unspecified essential hypertension Hyperlipidemia, unspecified hyperlipidemia type Tobacco use Tobacco use disorder documented in this encounter Care Teams Webbing Inspector Relationship Specialty Start Date End Date Dennis Crump MD PCP - General INTERNAL MEDICINE 02/28/17 10/23/23 Joann Marquez ANP- [address] [facility] [address] [place] [address] [place] Home Staging Specialist NURSE PRACTITIONER 02/28/17 documented as of this encounter
--- OUTSIDE RECORDS SUMMARY | 2024-10-26 08:20 | XMS_ITS | Encounter Summary ---
Author Organization [facility] Address [address] [place] [address]. 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
--- OUTSIDE RECORDS SUMMARY | 2024-10-26 08:20 | XMS_ITS | Encounter Summary ---
Author Organization [facility] Address [facility] 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
--- OUTSIDE RECORDS SUMMARY | 2024-10-26 08:20 | XMS_ITS | Encounter Summary ---
Author Organization [facility] Address [address] [place] [address]. [place] [address] [place] [address] Care Team Providers Care Teller Supervisor Name Role Phone Joann Norris-BC Unavailable [phone] Denisha Hansen Primary Care Provider [phone] Reason for Visit * Reason Onset Date Comments Lab Order 11/30/2023 Encounter Details Date Type Department Care Team ([facility] st Contact Info) Description 11/30/2023 Telephone [facility] [address] [place] [address] Joann Norris, AURELIANO-ERICA [address] [facility] [address] [place] [address] Lab Order Social History Tobacco Use Types Packs/Day Years [...] 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 Labs mailed to pt also. * Sonny Maldonado LPN - 01/23/2024 10:30 AM CDTAddended by: SONNY MALDONADO on: 01/23/2024 10:30 AM Modules accepted: Orders * MARIO Mendenhall - 01/23/2024 9:55 AM CDTAddended by: JOANN NORRIS on: 01/23/2024 09:55 AM Modules accepted: Orders * MARIO Mendenhall - 01/23/2024 9:53 AM CDT Lipid, CMP, CBC reviewed. His LDL is too high. I recommend he continue atorvastatin 80mg daily and add ezitimibe 10mg daily. Repeat lipid with direct LDL, ast in 3 months. * Shiloh Marshall - 01/22/2024 10:51 AM CDT Labs received from [facility], sent to be abstracted. * Mayra Salamanca LPN - 01/16/2024 3:22 PM CDT Spoke with Kenyetta at pcp office , CBC, CMP and Lipids were ordered along with othere testing that Denisha wanted, patient has not had labs drawn yet, message postponed to check on results in a week. * Mayra Salamanca LPN - 01/11/2024 2:11 PM CDT Left message on voice mail for patient to return call. * Mayra Salamanca LPN - 01/11/2024 2:05 PM CDT Spoke with Swapna at [facility] office , no other labs were drawn except bmp, patient has an appointment 01/15/2024 they will order cbc,lipid and lft's and have them drawn day of his appointment. Will postpone message until Sunday to call PCP office to make sure labs get drawn 01/15/2024. * MARIO Mendenhall - 01/11/2024 1:51 PM CDT I see his BMP is stable with CKD. He was to have a CMP, Lipid and CBC that I have not received yet.Is he having these drawn or they were done at the hospital? He has BMP but that does not include liver function. If he has not had the other labs drawn then he needs CBC, Lipid, LFTs (since he just had a BMP). * Sonny Maldonado LPN - 01/10/2024 3:11 PM CDT Bmp was done 12-31-23 with his primary cares office . Please see other note below about other labs that will be done. * Shiloh Marshall - 01/10/2024 2:29 PM CDT Labs received from [facility], sent to be abstracted. * Sonny Maldonado LPN - 01/10/2024 9:52 AM CDT Pt has appt now with his pcp orders faxed to [facility] at [phone] * Sonny Maldonado LPN - 01/02/2024 1:09 PM CDT Called pt to see if labs have been done . And he states no not a lipid barrientos but he feels like other labs were done at [facility] in [facility]. He sees his pcp on 01-08-24 and he will have jose guadalupe lab work faxed to our office fax number [phone] given to the pt. * Sonny Maldonado LPN - 12/26/2023 8:33 AM CST Left message for pt to call back. WEIGHT AND STRENGTH TESTER * Anju Oneal LPN - 12/11/2023 2:55 PM CST Lab orders and reminder letter printed and mailed to patient's home. Will check status again. WEIGHT AND STRENGTH TESTER * Mayra Salamanca LPN - 12/10/2023 12:55 PM CST Left message for patient to return call, checking to see if labs have been completed . WEIGHT AND STRENGTH TESTER * Mayra Salamanca LPN - 12/07/2023 9:25 AM CST Left message for patient to return call, checking to see if labs have been completed . WEIGHT AND STRENGTH TESTER * Sonny Maldonado LPN - 11/30/2023 9:27 AM CST Left pt a message to have lab work done. WEIGHT AND STRENGTH TESTER * Sonny Maldonado LPN - 11/30/2023 9:27 AM CST ----- Message from MARIO Mendenhall sent at 11/06/2023 9:45 AM YARN WEIGHT AND STRENGTH TESTER ----- Regarding: CBC, CMP, Lipid- pt plans to have done late october WEIGHT AND STRENGTH TESTER documented in this encounter Plan of Treatment Not on file documented as of this encounter Visit Diagnoses Diagnosis Mixed hyperlipidemia- Primary documented in this encounter Care Teams Teller Supervisor Relationship Specialty Start Date End Date Denisha Hansen PA [address] [place] [address] PCP - General PHYSICIAN RAILWAY ENGINEER 10/24/23 Joann Norris ANP-BC [address] [facility] [address] [place] [address] [employer] Water Project Engineer NURSE PRACTITIONER 02/28/17 documented as of this encounter
--- OUTSIDE RECORDS SUMMARY | 2024-10-26 08:21 | XMS_ITS | Encounter Summary ---
Author Organization [facility] Address [address] [place] [address]. [place] [address] [place] [address] Care Team Providers Care Radiology Services Manager Name Role Phone Dennis Crump MD Primary Care Provider [phone] Joann Marquez-ERICA Unavailable [phone] Reason for Visit * Reason Comments Follow Up Encounter Details Date Type Department Care Team ([facility] st Contact Info) Description 12/24/2019 9:45 AM HEEL CURVER Office Visit [facility] [address] [place] [address] Joann Marquez, AURELIANO-BC [address] [facility] [address] [place] [phone] Follow Up Social History Tobacco Use Types [...] 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 Not on file Not on file Not on file Not on file Not on file Not on file documented as of this encounter Last Filed Vital Signs Vital Sign Reading Time Taken Comments Blood Pressure 140/78 12/24/2019 9:49 AM HEEL CURVER Pulse 73 12/24/2019 9:43 AM HEEL CURVER ekg Temperature - - Respiratory Rate 18 12/24/2019 9:43 AM HEEL CURVER Oxygen Saturation - - Inhaled Oxygen Concentration - - Weight 94.7 kg (208 lb 12.8 oz) 12/24/2019 9:43 AM HEEL CURVER Height 177.8 cm (5' 10 ) 12/24/2019 9:43 AM HEEL CURVER Body Mass Index 29.96 12/24/2019 9:43 AM HEEL CURVER documented in this encounter Patient Instructions * Patient Instructions* MARIO Mendenhall - 12/24/2019 9:45 AM HEEL CURVER Stop Brilinta when you complete the current supply. You will take your first dose of Plavix (clopidogrel) on the same day you take your last dose of Brilinta. The following day you will take Plavix 75 mg daily and no further Brilinta. Stop aspirin after your second dose of Plavix. Stop smoking!! CURVER CURVER documented in this encounter Progress Notes * MARIO Mendenhall - 12/24/2019 9:45 AM CST Reason for Visit: Follow Up Medications: Current Outpatient Medications: ??? amlodipine (NORVASC) 10 MG tablet, Take 10 mg by mouth daily. , Disp: , Rfl: ??? atorvastatin (LIPITOR) 40 MG tablet, Take 40 mg by mouth nightly at bedtime. , Disp: , Rfl: ??? carvedilol 25 MG tablet, Take 1 tablet (25 mg total) by mouth 2 (two) times daily., Disp: 60 tablet, Rfl: 11 ??? clopidogrel 75 MG tablet, Take 1 tablet (75 mg total) by mouth daily., Disp: 90 tablet, Rfl: 3 ??? esomeprazole [...] shortness of breath and snoring. Cardiovascular: See HPI Gastrointestinal: Negative for blood in stool and melena. Genitourinary: Negative for dysuria. Musculoskeletal: Negative for myalgias and new or worsening joint stiffness/pain. Skin: Negative for rash. Neurological: Negative for tingling/numbness and focal weakness. Endo/Heme/Allergies: Positive for easy bruising/bleeding. Negative for polydipsia. Psychiatric/Behavioral: Negative for depression and new or significant memory loss. Vitals: 12/24/19 0943 12/24/19 0949 BP: 138/80 140/78 Patient Position: Sitting Sitting BP Location: Left arm Right arm Pulse: 73 Weight: 94.7 kg (208 lb 12.8 oz) Height: 5' 10 (1.778 m) Body mass index is 29.96 kg/m??. Physical Exam Rate/Rhythm: regular rhythm and normal rate . Heart Sounds: normal heart sounds, normal S1 and normal S2 no gallop, no S3 sound, no S4 sound and no murmur. . PMI: PMI not displaced. Pulses: intact distal pulses Right Carotid pulses 2+, Left Carotid pulses 2+, negative for edema Constitutional: not distressed. . Neck: neck supple no JVD. . Pulmonary/Chest Wall: effort normal and breath sounds normal . HEENT: Oral mucosa moist . Abdomen: abdomen soft and bowel sounds normal Abdominal aorta not palpably enlarged. No abdominal aortic bruit. . Eyes: conjunctivae normal. Neurological: alert, oriented x 3 and appropriate for situation, . Skin: dry and warm no pallor, no cyanosis and no clubbing. Musculoskeletal: no kyphosis Cardiovascular Comments: Diagnoses/Impression: 1. Coronary artery disease involving coushatta coronary artery of coushatta heart without angina pectoris 2. Essential hypertension 3. Hyperlipidemia, unspecified hyperlipidemia type 4. Tobacco use PINNACLE Documentation Completed: Coronary Artery Disease PCP: DENNIS CRUMP MD * MARIO Mendenhall - 12/24/2019 9:45 AM CST ADDENDUM: He also had evidence of chronic kidney disease on the last test that was forwarded. He will continue routine surveillance with his primary. * MARIO Mendenhall - 12/24/2019 9:45 AM CST HISTORY OF PRESENT ILLNESS: Mr. Kowalski returns to clinic today for followup of CAD. He was last in our office in 2016. He has a history of CAD with remote PCI, prior mall stroke in 2009, type 1 diabetes, dyslipidemia. He has ongoing tobacco use, smoking 2 packs of cigarettes per day. He follows withDr. Crump for management of his diabetes and dyslipidemia. He thinks his last A1c was less than 8.He has had some difficulty following through with followup at our office. He tells me he was seen in Dr. Crump's office within the last 2 months. I think I can see that he did have a heart catheterization in April of 2018. He had presented to [facility] with some chest pain. He underwent cardiac catheterization. There was no new severe obstructive disease. His stents were patent andno left main disease. He denies any recent symptoms of TIA or stroke. He denies chest pain or shortness of breath. He denies orthopnea, PND, presyncope, syncope, edema. He reports taking his medical therapy regularly. He uses an Insulin pump and said he monitors his blood sugar regularly. He has not recently been having issues with recurrent hypoglycemia. PLAN: Mr. Kowalski denies anginal complaints. He describes stable activity tolerance. His blood pressure on my recheck is 122/80 indicating adequate control. I overread 12-lead EKG today which shows sinus rhythm with possible septal W[place]. He has some chronic repolarization changes with no significant change compared to 09/09/2015. We discussed his dual antiplatelet therapy today, which I have also reviewed with Dr. Arechiga. He has remote PCI. He has had a small stroke in the past. At this point, I think it would be reasonable to reduce him to a single antiplatelet agent. We recommended stopping Brilinta when he completes the current supply and switching him to Plavix 75 mg daily. He will stop his Aspirin 2 days after making this transition and will continue on Plavix monotherapy to lower his risk of recurrent stroke in the setting of CAD. I have recommended complete smoking cessation. He understands the risk of continued smoking and potential benefit of complete smoking cessation. I have requested his last lipid profile for review. We will plan for followup in a year. I appreciated the opportunity to participate in the care of Tank Kowalski. Sincerely, SYDNI Wheeler With Dieter Arechiga MD ADDENDUM: We contacted your office to review his last lipid profile. He said he has not had one in the last year. Would recommend you reassess his dyslipidemia once his diabetes is adequately controlled. Last A1c was over 8 in the 140s in your office. He describes tolerating statin therapy well. Recommend titrating therapy to goal LDL at least less than 70. If he continues to have evidence of hypertriglyceridemia despite good control of his diabetes, then recommend considering adding Vascepa 2 grams twice a day for risk reduction. I have asked Mr. Kowalski to follow up as you directed to assure that the diabetes is controlled as well. documented in this encounter Plan of Treatment Not on file documented as of this encounter Procedures Procedure Name Priority Date/Time Associated Diagnosis Comments CBC W/ MANUAL DIFF (OUTSIDE) Routine 02/10/2019 CMP (OUTSIDE LAB) Routine 02/10/2019 documented in this encounter Results * (ABNORMAL) CMP (OUTSIDE LAB) (02/10/2019) SODIUM S/P/B 139 POTASSIUM S/P/B 3.7 CHLORIDE S/P/B 107 CO2 29 BUN 19 CREATININE S/P/B 1.49(A) 0.7 - 1.3 EGFR AFR. AMER. 65 EGFR NON-AFR. AMER. 56 <=90 CALCIUM S/P/B 9 GLUCOSE 122 mg/dL TOTAL PROTEIN S/P/B 6.4 ALBUMIN S/P/B 3.7 3.5 - 5.0 AST 16 ALT 13 ALKALINE PHOSPHATASE S/P/B 95 BILIRUBIN TOTAL S/P/B 0.3 02/10/2019 Denisha [facility]/ABSTRACTED Final Result * CBC W/ MANUAL DIFF (OUTSIDE) (02/10/2019) WBC 7.6 RBC 4.49 HGB 13.5 HCT 40.6 MCV 90.4 MCH 30.1 MCHC 33.3 RDW 13.5 PLT 190 MPV 11.4 NEUTROPHILS % 62.9 LYMPHOCYTES % 24.1 MONOCYTES % 6.7 EOSINOPHILS % 5 BASOPHILS % 1.3 ABS. NEUTROPHILS 4,780 ABS. LYMPHOCYTES 1,832 ABS. MONOCYTES 509 ABS. EOSINOPHILS 380 ABS. BASOPHILS 99 02/10/2019 Denisha [facility] Final Result documented in this encounter Visit Diagnoses Diagnosis Coronary artery disease involving coushatta coronary artery of coushatta heart without angina pectoris- Primary Essential hypertension Unspecified essential hypertension Hyperlipidemia, unspecified hyperlipidemia type Tobacco use Tobacco use disorder documented in this encounter Care Teams Radiology Services Manager Relationship Specialty Start Date End Date Dennis Crump MD PCP - General INTERNAL MEDICINE 02/28/17 10/23/23 Joann Marquez, ANP- [address] [facility] [address] [place] [address] Couch Computer Graphic Artist NURSE PRACTITIONER 02/28/17 documented as of this encounter
--- OUTSIDE RECORDS SUMMARY | 2024-10-26 08:21 | XMS_ITS | Encounter Summary ---
Author Organization [facility] Address [address] [place] [address]. [place], [place] [address] [place] [address] Care Team Providers Care Roll Former Name Role Phone Unavailable Primary Care Provider Unavailabl e Encounter Details Date Type Department Care Team (Late st Contact Info) Description 09/22/2015 Abstract [facility] [address] [place] [address] , Dionicio Mabry MD Social History Tobacco Use Types Packs/Day Years Used Date Smoking Tobacco: Smoker, Current Status Unknown Sex and Gender Information Value Date Recorded Sex Assigned at Not on file Legal Sex Male 1:10 AM CDT Gender Identity Not on file Sexual Orientation Not on file documented as of this encounter Plan of Treatment Not on file documented as of this encounter Visit Diagnoses Not on filedocumented in this encounter
--- OUTSIDE RECORDS SUMMARY | 2024-10-26 08:21 | XMS_ITS | Encounter Summary ---
Author Organization [facility] Address [facility] [place] [address] [place] [address] Care Team Providers Care Axle Bearing Polisher Name Role Phone Dennis Doran MD Primary Care Provider Joann Marquez-ERICA Unavailable Reason for Visit * Reason Onset Date Comments Appointment Request 12/05/2019 Encounter Details Date Type Department Care Team ([facility] st Contact Info) Description 12/05/2019 Telephone [place] [facility] [address] [place] [address] Joann Marquez, AURELIANO-BC [address] [facility] [address] [place] [address] Appointment Request Social History Tobacco [...] 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 NING PROFESSIONAL * Katherine Wagner Eh - 12/05/2019 4:08 PM CST Patient called asking when his next appt is scheduled, he thought it was later this month. His pharmacy told him his last refill of Brilinta was denied. I advised him I had him scheduled 11/21/19. Appt rescheduled to 12/24/19 at 9:45 am with Joann Marquez WORLD GEOGRAPHY TEACHER at [facility]. Patient verbalized understanding. Letter and med list mailed to patient. He asked that Brilinta be sent to [facility] in [place]. Patient may be reached at [phone] if any questions. NING PROFESSIONAL documented in this encounter Plan of Treatment Not on file documented as of this encounter Visit Diagnoses Not on filedocumented in this encounter Care Teams Axle Bearing Polisher Relationship Specialty Start Date End Date Dennis Doran MD PCP - General INTERNAL MEDICINE 02/28/17 10/23/23 Joann Marquez ANP- [address] [facility] [address] [place] [address] [place] Social Welfare Clerk NURSE PRACTITIONER 02/28/17 documented as of this encounter
--- OUTSIDE RECORDS SUMMARY | 2024-10-26 08:21 | XMS_ITS | Encounter Summary ---
Author Organization [facility] Address [address] [place] [address]. [place], [place] [address] [place] [address] Care Team Providers Care Sports Official Name Role Phone Unavailable Primary Care Provider Unavailabl e Encounter Details Date Type Department Care Team (Late st Contact Info) Description 09/24/2015 Abstract [facility] [address] [place] [address] , Generic MD Clotilde Social History Tobacco Use Types Packs/Day Years [...] Procedure Name Priority Date/Time Associated Diagnosis Comments CBC,CONVERSION Routine 09/24/2015 10:15 AM LABOR UTILIZATION SUPERINTENDENT THYROID PANEL Routine 09/24/2015 10:15 AM LABOR UTILIZATION SUPERINTENDENT COMPREHENSIVE METABOLIC PANEL Routine 09/24/2015 10:15 AM LABOR UTILIZATION SUPERINTENDENT documented in this encounter Results * (ABNORMAL) COMPREHENSIVE METABOLIC PANEL (09/24/2015 10:15 AM LABOR UTILIZATION SUPERINTENDENT) SODIUM S/P/B 139 135 - 147 mmol/L MEDINFORMATIX TO EPIC CONVERSION POTASSIUM S/P/B 4.1 3.5 - 5.0 mmol/L MEDINFORMATIX TO EPIC CONVERSION CHLORIDE S/P/B 109(H) 98 - 107 mmol/L MEDINFORMATIX TO EPIC CONVERSION CO2 23 22 - 29 mmol/L MEDINFORMATIX TO EPIC CONVERSION GLUCOSE 214(H) 70 - 109 mg/dL MEDINFORMATIX TO EPIC CONVERSION BUN 19 9 - 21 mg/dL MEDINFORMATIX TO EPIC CONVERSION CREATININE S/P/B 1.5(H) 0.7 - 1.3 mg/dL MEDINFORMATIX TO EPIC CONVERSION CALCIUM S/P/B 9.5 8.4 - 10.2 mg/dL MEDINFORMATIX TO EPIC CONVERSION BILIRUBIN TOTAL S/P/B 0.5 0.2 - 1.2 mg/dL MEDINFORMATIX TO EPIC CONVERSION ALK PHOS 108 45 - 115 U/L MEDINFORMATIX TO EPIC CONVERSION AST 18 5 - 35 U/L MEDINFORMATIX TO EPIC CONVERSION ALT 20 0 - 55 U/L MEDINFORMATIX TO EPIC CONVERSION TOTAL PROTEIN S/P/B 7.1 6.0 - 8.3 g/dL MEDINFORMATIX TO EPIC CONVERSION ALBUMIN S/P/B 4.2 3.4 - 4.9 g/dL MEDINFORMATIX TO EPIC CONVERSION ANION GAP 7 MEDINFORMA TIX TO EPIC CONVERSION OSMOLALITY (S/P/B) 286 mOsm/kg MEDINFORMATIX T O EPIC CONVERSION EGFR NON-AFR. AMER. 51(L) >60 mL/min/1. 73sq.m MEDINFORMATIX TO EPIC CONVERSION EGFR AFR. AMER. 62 >60 mL/min/1. 73sq.m MEDINFORMATIX TO EPIC CONVERSION 09/24/2015 10:1 5 AM LABOR UTILIZATION SUPERINTENDENT 09/24/2015 10:15 AM LABOR UTILIZATION SUPERINTENDENT Narrative MEDINFORMATIX TO EPIC CONVERSION - 09/24/2015 10:45 AM LABOR UTILIZATION SUPERINTENDENT Reviewed by ARGENTINA Robledo ??4 2014 ??2:06:40:000PM us Generic Conversion Md [facility] Final R esult MEDINFORMATIX TO EPIC CONVERSION * (ABNORMAL) CBC,CONVERSION (09/24/2015 10:15 AM LABOR UTILIZATION SUPERINTENDENT) WBC 7.57 4.00 - 10.80 K/cumm MEDINFORMATIX TO EPIC CONVERSION RBC 4.47(L) 4.50 - 6.10 M/cumm MEDINFORMATIX TO EPIC CONVERSION HGB 13.2 13.0 - 18.0 g/dL MEDINFORMATIX TO EPIC CONVERSION HCT 39.3 37.0 - 52.0 % MEDINFORMATIX TO EPIC CONVERSION MCV 87.9 78.0 - 100.0 fL MEDINFORMATIX TO EPIC CONVERSION MCH 29.5 27.0 - 31.0 pg MEDINFORMATIX TO EPIC CONVERSION MCHC 33.6 33.0 - 36.0 gm/dL MEDINFORMATIX TO EPIC CONVERSION RDW 13.2 11.5 - 14.5 % MEDINFORMATIX TO EPIC CONVERSION PLATELET COUNT 166 150 - 350 K/cumm MEDINFORMATIX TO EPIC CONVERSION MPV 11.6(H) 7.4 - 10.4 fL MEDINFORMATIX TO EPIC CONVERSION ABS. NEUTROPHILS 4.86 1.60 - 8.30 K/cumm MEDINFORMATIX TO EPIC CONVERSION ABS. LYMPHOCYTES 1.84 0.80 - 4.70 K/cumm MEDINFORMATIX TO EPIC CONVERSION ABS. MONOCYTES 0.48 0.00 - 1.50 K/cumm MEDINFORMATIX TO EPIC CONVERSION ABS. EOSINOPHILS 0.29 0.00 - 0.40 K/cumm MEDINFORMATIX TO EPIC CONVERSION ABS. BASOPHILS 0.08 0.00 - 0.20 K/cumm MEDINFORMATIX TO EPIC CONVERSION ABS. NUCLEATED RBC'S 0.00 0.00 K/cumm MEDINFORMATIX TO EPIC CONVERSION 09/24/2015 10:1 5 AM LABOR UTILIZATION SUPERINTENDENT 09/24/2015 10:15 AM LABOR UTILIZATION SUPERINTENDENT Narrative MEDINFORMATIX TO EPIC CONVERSION - 09/24/2015 10:25 AM LABOR UTILIZATION SUPERINTENDENT Reviewed by ARGENTINA Robledo ??4 2014 ??2:06:48:000PM us Generic Conversion Md [facility] Final R esult MEDINFORMATIX TO EPIC CONVERSION * THYROID PANEL (09/24/2015 10:15 AM LABOR UTILIZATION SUPERINTENDENT) TSH ULTRASENSITIVE 1.90 0.35 - 4.94 mcIU/mL MEDINFORMATIX TO EPIC CONVERSION 09/24/2015 10:1 5 AM LABOR UTILIZATION SUPERINTENDENT 09/24/2015 10:15 AM LABOR UTILIZATION SUPERINTENDENT Narrative MEDINFORMATIX TO EPIC CONVERSION - 09/25/2015 5:41 AM LABOR UTILIZATION SUPERINTENDENT Reviewed by ARGENTINA Robledo ??7 2014 ??8:55:06:000AM us Generic Conversion Md [facility] Final R esult MEDINFORMATIX TO EPIC CONVERSION documented in this encounter Visit Diagnoses Not on filedocumented in this encounter
--- OUTSIDE RECORDS SUMMARY | 2024-10-26 08:21 | XMS_ITS | Encounter Summary ---
Author Organization [facility] Address [address] [place] [address]. [place], [place] [address] [place] [address] Care Team Providers Care Home Theatre Technician Name Role Phone Unavailable Primary Care Provider Unavailabl e Encounter Details Date Type Department Care Team (Late st Contact Info) Description 09/09/2015 Abstract [facility] [address] [place] [address] , Dionicio Mabry MD Social History Tobacco [...] Sign Reading Time Taken Comments Blood Pressure 132/80 09/09/2015 10:58 AM DIGITAL TECH Pulse 74 09/09/2015 10:57 AM DIGITAL TECH Temperature - - Respiratory Rate 14 09/09/2015 10:57 AM DIGITAL TECH Oxygen Saturation - - Inhaled Oxygen Concentration - - Weight 87.5 kg (193 lb) 09/09/2015 10:57 AM DIGITAL TECH Height 180.3 cm (5' 11 ) 09/09/2015 10:57 AM DIGITAL TECH Body Mass Index 26.92 09/09/2015 10:57 AM DIGITAL TECH documented in this encounter Plan of Treatment Not on file documented as of this encounter Visit Diagnoses Not on filedocumented in this encounter
--- OUTSIDE RECORDS SUMMARY | 2024-10-26 08:21 | XMS_ITS | Encounter Summary ---
Author Organization [facility] Address [address] [place] [address]. [place], [place] [address] [place] [address] Care Team Providers Care Vacuum Cleaner Mechanic Name Role Phone Dennis Doran MD Primary Care Provider [phone] Joann Marquez Unavailable [phone] Encounter Details Date Type Department Care Team (Late st Contact Info) Description 03/02/2017 Orders Only [facility] [address] [place] [address] Mayra Salamanca, GUMARO Social History Tobacco Use Types Packs/Day Years Used Date Smoking Tobacco: Every Day Cigarettes Alcohol Use Standard Drinks/Week Comments Yes 0 (1 standard drink = 0.6 oz pur e alcohol) 8 beers (64) a month. 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
--- OUTSIDE RECORDS SUMMARY | 2024-10-26 08:21 | XMS_ITS | Encounter Summary ---
Author Organization [facility] Address [address] [place] [address]. [place], [place] [address] [place] [address] Care Team Providers Care Instrument Lens Generator Name Role Phone Unavailable Primary Care Provider Unavailabl e Encounter Details Date Type Department Care Team (Late st Contact Info) Description 09/22/2015 [facility] [address] [place] [address] , Dionicio Mabry MD Social History Tobacco [...]
--- OUTSIDE RECORDS SUMMARY | 2024-10-26 08:21 | XMS_ITS | Encounter Summary ---
Author Organization [facility] Address [address] [place] [address]. 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
--- OUTSIDE RECORDS SUMMARY | 2024-10-26 08:21 | XMS_ITS | Encounter Summary ---
Author Organization [facility] Address [address] [place] [address]. 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
--- OUTSIDE RECORDS SUMMARY | 2024-10-26 08:21 | XMS_ITS | Encounter Summary ---
Author Organization [facility] Address Critical access hospital6 [facility] 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 Not on file Not on file Not on file Not on file Not on file Not on file documented as of this encounter Plan of Treatment Not on file documented as of this encounter Procedures Procedure Name Priority Date/Time Associated Diagnosis Comments CBC (OUTSIDE LAB) Routine 02/25/2016 documented in this encounter Results * CBC (OUTSIDE LAB) (02/25/2016) WBC 15.2 HGB 13.3 HCT 41.4 PLT 171 RBC 4.56 02/25/2016 Dennis Doran MD LAB-OUTSIDE/ABSTRACTED Final R esult documented in this encounter Visit Diagnoses Not on filedocumented in this encounter Additional Health Concerns Infection Onset Date Last Indicated Resolved Time COVID-19 Rule Out 01/06/2022 01/06/2022 01/07/2022 2:32 PM CDT documented as of this encounter Care Teams Observation Assistant Relationship Specialty Start Date End Date Dennis Doran MD PCP - General INTERNAL MEDICINE 02/28/17 10/23/23 Denisha Hansen PA [address] [place] [address] PCP - General PHYSICIAN PARACHUTE OFFICER 10/24/23 Joann Marquez, ANP- [address] [place] [address] [address] [place] [address] [place] Stamp Maker NURSE PRACTITIONER 02/28/17 documented as of this encounter
--- OUTSIDE RECORDS SUMMARY | 2024-10-26 08:21 | XMS_ITS | Encounter Summary ---
Author Organization [facility] Address [address] [place] [address]. [place], [place] [address] [place] [address] Care Team Providers Care School Office Manager Name Role Phone Dennis Doran MD Primary Care Provider [phone] Joann Marquez 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 Not on file Not on file Not on file Not on file Not on file Not on file documented as of this encounter Plan of Treatment Scheduled Orders Name Type Priority Associated Diagnoses Orde r Schedule ELECTROCARDIOGRAM EKG-NonRad Routine Coronary artery disease involving [place] coronary artery of [place] heart without angina pectoris Ordered: 10/31/2019 documented as of this encounter Visit Diagnoses Diagnosis Coronary artery disease involving [place] coronary artery of [place] heart without angina pectoris- Primary documented in this encounter Care Teams School Office Manager Relationship Specialty Start Date End Date Dennis Doran MD PCP - General INTERNAL MEDICINE 02/28/17 10/23/23 Joann Marquez ANP- [address] [address] [place] Dungeon Master NURSE PRACTITIONER 02/28/17 documented as of this encounter
--- OUTSIDE RECORDS SUMMARY | 2024-10-26 08:21 | XMS_ITS | Encounter Summary ---
Author Organization [facility] Address [address] [place] [address]. [place], [place] [address] [place] [address] Care Team Providers Care Novelty Worker Name Role Phone Unavailable Primary Care Provider Unavailabl e Encounter Details Date Type Department Care Team (Late st Contact Info) Description 09/24/2015 [facility] [address] [place] [address] , Dionicio Mabry MD Social History Tobacco [...]
--- OUTSIDE RECORDS SUMMARY | 2024-10-26 08:21 | XMS_ITS | Encounter Summary ---
Author Organization [facility] Address [address] [place] [address]. 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 Not on file Not on file Not on file Not on file Not on file Not on file documented as of this encounter Plan of Treatment Not on file documented as of this encounter Visit Diagnoses Diagnosis Hematuria Hematuria, unspecified documented in this encounter Care Teams Bead Forming Machine Set Up Operator Relationship Specialty Start Date End Date Dennis Doran MD PCP - General INTERNAL MEDICINE 02/28/17 10/23/23 Joann Marquez, [facility]- [address] [facility] [address] [place] [address] [place] Visitor Services Assistant NURSE PRACTITIONER 02/28/17 documented as of this encounter
--- OUTSIDE RECORDS SUMMARY | 2024-10-26 08:21 | XMS_ITS | Encounter Summary ---
Author Organization [facility] Address [facility] [place] [address] [place] [address] Care Team Providers Care Senior Java Programmer Name Role Phone Dennis Doran MD Primary Care Provider [phone] Joann Marquez-ERICA Unavailable Reason for Visit * Reason Onset Date Comments Reschedule 10/17/2019 Encounter Details Date Type Department Care Team (Late st Contact Info) Description 10/17/2019 Telephone [facility] [address] [place] [address] Joann Marquez, AURELIANO-BC [address] [facility] [address] [place] [address] Reschedule Social History Tobacco Use Types Packs/Day [...] 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 He agrees, and appt was rescheduled to 10/24/19 at 9:45 am with Joann Marquez NP at [facility]. Patient verbalized understanding, and I thanked him for rescheduling. He states he does have enough medicine to last until then. Letter and med list mailed to patient. HER FILTER TIP documented in this encounter Plan of Treatment Not on file documented as of this encounter Visit Diagnoses Not on filedocumented in this encounter Care Teams Senior Java Programmer Relationship Specialty Start Date End Date Dennis Doran MD PCP - General INTERNAL MEDICINE 02/28/17 10/23/23 Joann Marquez, ANP- [address] [facility] [address] [place] [address] [place] Garbage Truck Helper NURSE PRACTITIONER 02/28/17 documented as of this encounter
--- OUTSIDE RECORDS SUMMARY | 2024-10-26 08:21 | XMS_ITS | Encounter Summary ---
Author Organization [facility] Address [address] [place] [address]. [place], [place] [address] [place] [address] Care Team Providers Care Market Development Specialist Name Role Phone Unavailable Primary Care Provider Unavailabl e Encounter Details Date Type Department Care Team (Late st Contact Info) Description 09/27/2015 [facility] [address] [place] [address] , Dionicio Mabry MD Social History Tobacco [...]
--- OUTSIDE RECORDS SUMMARY | 2024-10-26 08:21 | XMS_ITS | Encounter Summary ---
Author Organization [facility] Address [address] [place] [address]. [place], [place] [address] [place] [address] Care Team Providers Care Ballistics Laboratory Gunsmith Name Role Phone Dennis Doran MD Primary Care Provider [phone] Joann Marquez [facility] Unavailable [phone] Encounter Details Date Type Department Care Team (Late st Contact Info) Description 12/24/2019 Orders Only [facility] [address] [place] [address] Nate Sutton MD 602 [facility] [address] [place] [address] Social History Tobacco Use Types Packs/Day [...] 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 Not on file Not on file Not on file Not on file Not on file Not on file documented as of this encounter Plan of Treatment Not on file documented as of this encounter Procedures Procedure Name Priority Date/Time Associated Diagnosis Comments ELECTROCARDIOGRAM (NON MIDMARK ACQUIRED) Routine 12/24/2019 9:47 AM FISH HOUSEKEEPER Coronary artery disease involving [place] coronary artery of [place] heart without angina pectoris documented in this encounter Results * ELECTROCARDIOGRAM (12/24/2019 9:47 AM FISH HOUSEKEEPER) 12/24/2019 9:47 AM FISH HOUSEKEEPER Narrative [facility] - 12/26/2019 3:04 PM FISH HOUSEKEEPER ? [facility] ?[address] [place], [place] ??[address] ? Test Date: ?2019-12-24 Pat Name: ? TANK KOWALSKI ?Department: ? Room: ? Gender: ? Male ? Maintenance Mechanic Helper: ?? : ?1975 ? Requested By: NATE SUTTON Order Number: [id number] ?[place] MD: ?? Nate Sutton ? Measurements Intervals ?[place] ? Rate: ? 73 ? P: ?19 IN: ? 123 ?QRS: ?-10 QRSD: ? 86 ? T: ?43 QT: ? 376 ? QTc: ?415 ? Interpretive Statements SINUS RHYTHM SEPTAL MYOCARDIAL INFARCTION, OF INDETERMINATE AGE HOUSEKEEPER Procedure Note Nate Sutton MD - 12/26/2019 [facility]ly [facility] [address] [place] [address] Test Date: 2019-12-24 Pat Name: TANK KOWALSKI Department: Room: Gender: Male Maintenance Mechanic Helper: : 1975 Requested By: NATE SUTTON Order Number: [id number] Dougie MD: Nate Sutton Measurements Intervals [place] Rate: 73 P: 19 IN: 123 QRS: -10 QRSD: 86 T: 43 QT: 376 QTc: 415 Interpretive Statements SINUS RHYTHM SEPTAL MYOCARDIAL INFARCTION, OF INDETERMINATE AGE HOUSEKEEPER us Nate Wade MD PROCEDURES-ORDERABLE NO CHARG E Final Result [facility] [address] [place] [address] documented in this encounter Visit Diagnoses Diagnosis Coronary artery disease involving [place] coronary artery of [place] heart without angina pectoris- Primary documented in this encounter Care Teams Ballistics Laboratory Gunsmith Relationship Specialty Start Date End Date Dennis Doran MD PCP - General INTERNAL MEDICINE 02/28/17 10/23/23 Joann Marquez, [facility]- [address] [facility] [address] [place] [address] [place] Simulation Analyst NURSE PRACTITIONER 02/28/17 documented as of this encounter
--- OUTSIDE RECORDS SUMMARY | 2024-10-26 08:21 | XMS_ITS | Encounter Summary ---
Author Organization [facility] Address [address] [place] [address]. 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 Not on file Not on file Not on file Not on file Not on file Not on file documented as of this encounter Plan of Treatment Not on file documented as of this encounter Procedures Procedure Name Priority Date/Time Associated Diagnosis Comments ELECTROCARDIOGRAM (NON MIDMARK ACQUIRED) Routine 01/21/2021 1:11 PM CDT Coronary artery disease involving [place] coronary artery of [place] heart without angina pectoris documented in this encounter Results * ELECTROCARDIOGRAM (NON MIDMARK ACQUIRED) (01/21/2021 1:11 PM CDT) 01/21/2021 1:11 PM CDT Narrative [facility] - 01/24/2021 9:24 AM CDT ? [facility], [facility] ?[address] [place], [place] ??[address] ? Test Date: ?2021-01-21 Pat Name: ? TANK CAMPBELLJOSE ANGEL ?Department: ? Room: ? Gender: ? Male ? Waste And Batting Waste Chopper: ?? jdc : ?1975 ? Requested By: NATE SUTTON Order Number: [id number] ?[place] MD: ?? Nate Sutton ? Measurements Intervals ?[place] ? Rate: ? 70 ? P: ?20 GA: ? 137 ?QRS: ?3 QRSD: ? 81 ? T: ?40 QT: ? 363 ? QTc: ?393 ? Interpretive Statements SINUS RHYTHM Cannot rule out SEPTAL MYOCARDIAL INFARCTION, OF INDETERMINATE AGE No significant change since prior tracing Procedure Note Nate Sutton MD - 01/24/2021 [facility] [place] [address] [place] [address] Test Date: 2021-01-21 Pat Name: TANK KOWALSKI Department: Room: Gender: Male Waste And Batting Waste Chopper: maddie : 1975 Requested By: NATE SUTTON Order Number: [id number] [place] MD: Nate Sutton Measurements Intervals [place] Rate: 70 P: 20 GA: 137 QRS: 3 QRSD: 81 T: 40 QT: 363 QTc: 393 Interpretive Statements SINUS RHYTHM Cannot rule out SEPTAL MYOCARDIAL INFARCTION, OF INDETERMINATE AGE No significant change since prior tracing us Nate Wade MD PROCEDURES-ORDERABLE NO CHARG E Final Result [facility] documented in this encounter Visit Diagnoses Diagnosis Coronary artery disease involving [place] coronary artery of [place] heart without angina pectoris- Primary documented in this encounter Care Teams Funeral Car Chauffeur Relationship Specialty Start Date End Date Dennis Doran MD PCP - General INTERNAL MEDICINE 02/28/17 10/23/23 Joann Marquez, [facility]- [address] [facility] [address] [place] [address] [place] Program Specialist NURSE PRACTITIONER 02/28/17 documented as of this encounter
--- OUTSIDE RECORDS SUMMARY | 2024-10-26 08:21 | XMS_ITS | Encounter Summary ---
Author Organization [facility] Address [address] [place] [address]. [place] [address] [place] [address] Care Team Providers Care Shoe Caser Name Role Phone Dennis Doran MD Primary Care Provider [phone] Joann Marquez-ERICA Unavailable Reason for Visit * Reason Onset Date Comments Medication 05/14/2017 Encounter Details Date Type Department Care Team ([facility] st Contact Info) Description 05/14/2017 Telephone [facility] [address] [place] [address] Joann Marquez, MARIO [address] [facility] [address] [place] [address] Medication Social History Tobacco Use Types Packs/Day Years [...] 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 # 5 with 11 refills per EVARISTO [place]. * MARIO Mendenhall - 05/15/2017 1:06 PM CDT OK to change to Viagra 50mg 1 po daily PRN * Katherine Stauffer - 05/14/2017 3:22 PM CDT K[facility] at [facility] called; Shea Marquez NP wrote a script for Levitra, but this is not covered by his insurance. Insurance will cover Viagra or Cialis. Pharmacy may be reached at [phone]. documented in this encounter Plan of Treatment Not on file documented as of this encounter Visit Diagnoses Not on filedocumented in this encounter Care Teams Shoe Caser Relationship Specialty Start Date End Date Dennis Doran MD PCP - General INTERNAL MEDICINE 02/28/17 10/23/23 Joann Marquez ANP-BC [address] [place] [address] [address] [place] Per Diem Rn NURSE PRACTITIONER 02/28/17 documented as of this encounter
--- OUTSIDE RECORDS SUMMARY | 2024-10-26 08:21 | XMS_ITS | Encounter Summary ---
Author Organization [facility] Address [facility] 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 Not on file Not on file Not on file Not on file Not on file Not on file documented as of this encounter Plan of Treatment Not on file documented as of this encounter Procedures Procedure Name Priority Date/Time Associated Diagnosis Comments HEMOGLOBIN, GLYCOSYLATED Routine 02/10/2019 documented in this encounter Results * HEMOGLOBIN, GLYCOSYLATED (02/10/2019) HGB A1C 8.6 02/10/2019 Denisha [facility] Final Result documented in this encounter Visit Diagnoses Not on filedocumented in this encounter Additional Health Concerns Infection Onset Date Last Indicated Resolved Time COVID-19 Rule Out 01/06/2022 01/06/2022 01/07/2022 2:32 PM CDT documented as of this encounter Care Teams Auto Crane Driver Relationship Specialty Start Date End Date Dennis Doran MD PCP - General INTERNAL MEDICINE 02/28/17 10/23/23 Denisha Hansen PA [address] [place] [address] PCP - General PHYSICIAN TRACK TEMPLATE MAKER 10/24/23 Joann Marquez, ANP-BC [address] [facility] [address] [place] [address] [place] Senior Data Quality Analyst NURSE PRACTITIONER 02/28/17 documented as of this encounter
--- OUTSIDE RECORDS SUMMARY | 2024-10-26 08:21 | XMS_ITS | Encounter Summary ---
Author Organization [facility] Address [address] [place] [address]. [place], [place] [id number] [place] [id number] Care Team Providers Care Rope Machine Setter Name Role Phone Dennis Doran MD Primary Care Provider [phone] Joann Marquez [facility]- Unavailable [phone] Reason for Visit * Reason Onset Date Comments Information 02/20/2020 [employer] Educ[employer] n Encounter Details Date Type Department Care Team (Late st Contact Info) Description 02/20/2020 Telephone [employer] [facility] [employer] [facility] [address] [place] [address] Ami Pearson I, RN Information ([employer] Education) Social History Tobacco Use Types Packs/Day Years [...] 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 Call back number given [phone] Ext [phone]. Link sent as well. documented in this encounter Plan of Treatment Not on file documented as of this encounter Visit Diagnoses Not on filedocumented in this encounter Care Teams Rope Machine Setter Relationship Specialty Start Date End Date Dennis Doran MD PCP - General INTERNAL MEDICINE 02/28/17 10/23/23 Joann Marquez, ANP- [address] [facility] [address] [place] [phone] [employer] Safety Advisor NURSE PRACTITIONER 02/28/17 documented as of this encounter
--- OUTSIDE RECORDS SUMMARY | 2024-10-26 08:21 | XMS_ITS | Encounter Summary ---
Author Organization [facility] Address [address] [place] [address]. [place] [address] [place] [address] Care Team Providers Care It Infrastructure Consultant Name Role Phone Dennis Doran MD Primary Care Provider Joann Marquez Unavailable Reason for Visit * Reason Onset Date Comments Called To Cancel Office Appt. 10/31/2019 Encounter Details Date Type Department Care Team ([facility] st Contact Info) Description 10/31/2019 Telephone [employer] CARDIOVASCULAR [employer] AT [facility] [address] [place] [address] Joann Marquez ANP-BC [address] [facility] [address] [place] [address] Called To Cancel Office Appt. 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 UNT RELATIONSHIP MANAGER * Katherine Stauffer - 11/05/2019 4:22 PM CST Patient called back to reschedule cancelled appt; rescheduled to 11/21/19 at 12:45 pm with EVARISTO Almanza at [facility]. He states he only has about 5 Brilinta left at home, and asked that we send a refill to [facility] in [place]. UNT RELATIONSHIP MANAGER * Katherine Stauffer - 10/31/2019 8:12 AM CST The patient called stating he is still sick and would like to cancel his appt this morning; he states he will call back next week to reschedule. UNT RELATIONSHIP MANAGER documented in this encounter Plan of Treatment Not on file documented as of this encounter Visit Diagnoses Not on filedocumented in this encounter Care Teams It Infrastructure Consultant Relationship Specialty Start Date End Date Dennis Doran MD PCP - General INTERNAL MEDICINE 02/28/17 10/23/23 Joann Marquez ANP- [address] [facility] [address] [place] [address] [employer] Game Bird Farmer NURSE PRACTITIONER 02/28/17 documented as of this encounter
--- OUTSIDE RECORDS SUMMARY | 2024-10-26 08:21 | XMS_ITS | Encounter Summary ---
Author Organization [facility] Address [address] [place] [address]. [place] [address] [place] [address] Care Team Providers Care Final Inspector Balance Wheel Name Role Phone Dennis Doran MD Primary Care Provider [phone] Joann Marquez-ERICA Unavailable [phone] Reason for Visit * Reason Onset Date Comments Advise 12/24/2019 Encounter Details Date Type Department Care Team ([facility] st Contact Info) Description 12/24/2019 Telephone [employer] [facility] AT [facility] [address] [place] [address] Joann Marquez, AURELIANO-BC [address] [facility] [address] [place] [address] Advise Social History Tobacco Use Types Packs/Day Years [...] 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 See EVARISTO Castle's note 01/14/2020. Patient expresses understanding and will be following up with PCP. Aware to call with any questions or concerns. * MARIO Mendenhall - 12/24/2019 3:31 PM CST Please let pt know we called his primary for his last lipid profile and he hasn't had one in a few years. I am recommending to his primary doctor to recheck his lipids with next assessment of his diabetes. His last HGB A1C they forwarded to us was 8.6%. He also had some diminishment of kidney function and recommend he follow up with primary office. See addendum to clinic note. ASSOCIATE documented in this encounter Plan of Treatment Not on file documented as of this encounter Visit Diagnoses Not on filedocumented in this encounter Care Teams Final Inspector Balance Wheel Relationship Specialty Start Date End Date Dennis Doran MD PCP - General INTERNAL MEDICINE 02/28/17 10/23/23 Joann Marquez ANP-BC [address] [facility] [address] [place] [phone] [place] Padder NURSE PRACTITIONER 02/28/17 documented as of this encounter
--- OUTSIDE RECORDS SUMMARY | 2024-10-26 08:21 | XMS_ITS | Encounter Summary ---
Author Organization [facility] Address [address] [place] [address]. [place] [address] [place] [address] Care Team Providers Care Dividend Clerk Name Role Phone Dennis Doran MD Primary Care Provider [phone] Joann Marquez-ERICA Unavailable [phone] Reason for Visit * Reason Onset Date Comments Reschedule 10/24/2019 Encounter Details Date Type Department Care Team (Late st Contact Info) Description 10/24/2019 Telephone [employer] [facility] AT [facility] [address] [place] [address] Joann Marquez ANP-BC [address] [facility] [address] [place] [address] Reschedule Social History Tobacco Use [...] 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 Appt rescheduled to Sunday10/31/19 at 8:45 am with Joann Marquez NP at [facility]. Patient verbalized understanding. Letter and med list mailed to patient. AL SPECIALIST documented in this encounter Plan of Treatment Not on file documented as of this encounter Visit Diagnoses Not on filedocumented in this encounter Care Teams Dividend Clerk Relationship Specialty Start Date End Date Dennis Doran MD PCP - General INTERNAL MEDICINE 02/28/17 10/23/23 Joann Marquez, AURELIANO- [address] [facility] [address] [place] [address] [place] Marketing Assistant Retail Division NURSE PRACTITIONER 02/28/17 documented as of this encounter
--- OUTSIDE RECORDS SUMMARY | 2024-10-26 08:21 | XMS_ITS | Encounter Summary ---
Author Organization [facility] Address [facility] [place] [address] [place] [address] Care Team Providers Care Joist Setter Name Role Phone Dennis Crump MD Primary Care Provider [phone] Joann Marquez Unavailable [phone] Reason for Visit * Reason Comments Follow Up Encounter Details Date Type Department Care Team ([facility] st Contact Info) Description 01/21/2021 1:30 PM CDT [facility] [address] [place] [phone] Joann Marquez ANP-BC [address] [facility] [address] [place] [phone] Follow Up Social History Tobacco Use Types [...] 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 Not on file Not on file Not on file Not on file Not on file Not on file Not on file COVID-19 Exposure Response Date Recorded In the last month, have you been in contact with someone who was confirmed or suspected to have Coronavirus / COVID-19? No / Unsure 01/21/2021 12:51 PM CDT documented as of this encounter Last Filed Vital Signs Vital Sign Reading Time Taken Comments Blood Pressure 142/80 01/21/2021 1:14 PM CDT Pulse 70 01/21/2021 1:14 PM CDT EKG Temperature - - Respiratory Rate 16 01/21/2021 1:14 PM CDT Oxygen Saturation - - Inhaled Oxygen Concentration - - Weight 90.4 kg (199 lb 6.4 oz) 01/21/2021 1:14 P M CDT Height 177.8 cm (5' 10 ) 01/21/2021 1:14 PM CDT Body Mass Index 28.61 01/21/2021 1:14 PM CDT documented in this encounter Progress Notes * Joann Marquez, AURELIANO-BC - 01/21/2021 1:30 PM CDT From the office of Dieter Arechiga MD & Joann Marquez APRN Dear Dr. DENNIS CRUMP MD: Your patient, Tank Kowalski was seen on 01/21/2021 at the [facility]. Medications: Current Outpatient Medications: ??? clopidogrel 75 MG tablet, Take 1 tablet (75 mg total) by mouth daily., Disp: 90 tablet, Rfl: 3 ??? amlodipine (NORVASC) 10 MG tablet, Take 10 mg by mouth daily. , Disp: , Rfl: ??? atorvastatin (LIPITOR) 40 MG tablet, Take 40 mg by mouth nightly at bedtime. , Disp: , Rfl: ??? carvedilol 25 MG tablet, Take 1 tablet (25 mg total) by mouth 2 (two) times daily., Disp: 60 tablet, Rfl: 11 ??? esomeprazole (NEXIUM) 40 MG capsule, Take [...] and snoring. Cardiovascular: See HPI. Positive for palpitations. Gastrointestinal: Negative for blood in stool and melena. Genitourinary: Negative for dysuria. Musculoskeletal: Negative for myalgias and new or worsening joint stiffness/pain. Skin: Negative for rash. Neurological: Negative for tingling/numbness and focal weakness. Endo/Heme/Allergies: Negative for new or significant bruising/bleeding and polydipsia. Psychiatric/Behavioral: Negative for depression and new or significant memory loss. Filed Vitals: 01/21/21 1314 BP: (!) 142/80 Pulse: 70 Resp: 16 Weight: 90.4 kg (199 lb 6.4 oz) Height: 5' 10 (1.778 m) Cardiac Exam Rate/Rhythm: Normal rate and [...] Comments: Diagnoses/Impression: 1. Coronary artery disease involving cahuilla coronary artery of cahuilla heart without angina pectoris 2. Tobacco use 3. Essential hypertension 4. Hyperlipidemia, unspecified hyperlipidemia type [place] Documentation Completed: Coronary Artery Disease PCP: DENNIS CRUMP MD * MARIO Mendenhall - 01/21/2021 1:30 PM CDT HISTORY OF PRESENT ILLNESS: Mr. Kowalski returns to clinic today for followup of CAD. He has a historyof coronary artery disease with previous stenting, hypertension, type 1 diabetes, dyslipidemia, remote stroke, and ongoing tobacco use. His most recent heart catheterization was in May 2018. He has had preserved left ventricular systolic function. Mr. Kowalski denies having chest pain or shortness of breath. He does quite a lot of walking at his work and feels like he has stable activity tolerance. He does note sometimes when he reclines at night, he will feel a sense of palpitations. He said it is not racing fast or irregular, but just an awareness of his heartbeat. He denies associated symp toms. 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 He has not been aware of any signs of bleeding or evidence of anemia and said he had routine lab work with Dr. Crump a couple of months ago. He denies orthopnea, PND, presyncope, syncope, or edema. He denies symptoms of TIA or stroke. PLAN: Mr. Kowalski appears stable on his medical therapy without anginal complaints. EKG today shows sinus rhythm with septal ID, age indeterminate with no significant change. His blood pressure is mildly elevated on examination today, but he attributes it to white coat hypertension. He said when he is checking it at home, it has been well controlled. He describes following the current medicine regimen without apparent side effects. He is encouraged to engage in a heart-healthy lifestyle. I spent more than 5 minutes today counseling on smoking cessation. He understands the risks of continued smoking and benefits of complete smoking cessation. We discussed some strategies and he did demonstratesome motivation to quit smoking, but does not feel like he is quite ready yet. He is going to work towards reducing his cigarettes with a long-term goal of complete smoking cessation. He describes tolerating the current lipid-lowering therapy without apparent side effects. We will request the most recent copy of his CBC, CMP, and lipid profile for our records. We will plan for followup in a year or sooner if concerns arise. documented in this encounter Plan of Treatment Not on file documented as of this encounter Visit Diagnoses Diagnosis Coronary artery disease involving cahuilla coronary artery of cahuilla heart without angina pectoris- Primary Tobacco use Tobacco use disorder Essential hypertension Unspecified essential hypertension Hyperlipidemia, unspecified hyperlipidemia type documented in this encounter Care Teams Joist Setter Relationship Specialty Start Date End Date Dennis Crump MD PCP - General INTERNAL MEDICINE 02/28/17 10/23/23 Joann Marquez ANP-BC [address] [facility] [address] [address] [place] 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
--- OUTSIDE RECORDS SUMMARY | 2024-10-26 08:21 | XMS_ITS | Encounter Summary ---
Author Organization [facility] Address [address] [place] [address]. [place], [place] [id number] [place] [id number] Care Team Providers Care Field Training Manager Name Role Phone Dennis Crump MD Primary Care Provider [phone] Joann Marquez [facility]- Unavailable [phone] Reason for Referral * Imaging (Urgent) - Closed Specialty Diagnoses / Procedures Referred By Cheyanne puentes Referred To Contact Procedures [facility] Mike Lovell MD [address] [facility] [address] [place] [id number] Phone: tel: fax: Referral ID Status Reason Start Date Expiration Date Visits Re quested Visits Authorized [id number] Closed 05/22/2018 06/22/2019 1 1 Reason for Visit * Reason Comments Chest Pain * Auth/Cert Specialty Diagnoses / Procedures Referred By Cheyanne puentes Referred To Contact Diagnoses Chest pain, unspecified type Chest pain Procedures OBSV Referral ID Status Reason Start Date Expiration Date Visits Re quested Visits Authorized [id number] 1 1 Encounter Details Date Type Department Care Team (Late st Contact Info) Description 05/21/2018 1:11 PM CDT - 05/22/2018 3:48 PM CDT Emergency [facility] [place] [address] Steve Rockwell MD [address] [place], [place] [id number] [place] [phone] (Work) Chest Pain Discharge Disposition: Home or Self Care (Routine [...] 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 Not on file Not on file Not on file Not on file Not on file Not on file Not on file documented as of this encounter Last Filed Vital Signs Vital Sign Reading Time Taken Comments Blood Pressure 148/75 05/22/2018 1:56 PM CDT Pulse 80 05/22/2018 1:56 PM CDT Temperature 36.7 ??C (98 ??F) 05/22/2018 8:09 AM CDT Respiratory Rate 20 05/22/2018 1:56 PM CDT Oxygen Saturation 94% 05/22/2018 1:56 PM CDT Inhaled Oxygen Concentration - - Weight 89 kg (196 lb 3.4 oz) 05/22/2018 3:28 AM CDT Height 180.3 cm (5' 11 ) 05/21/2018 3:53 PM CDT Body Mass Index 27.37 05/21/2018 3:53 PM CDT documented in this encounter Discharge Summaries * Ember Han MD - 05/22/2018 1:59 PM CDT Hospitalist Discharge Summary Patient ID: Rubia Kowalski. male. 1975. Admit date: 05/21/2018 1:11 PM Discharge date and time: 05/22/18 Admitting Physician: Ember Han MD Attending Physician: Ember Han MD Primary Care Physician: DENNIS CRUMP MD Discharge Physician: EMBER HAN MD Hospital Diagnosis: Chest pain Admission Condition: fair Discharged Condition: Good Code Status: Full Code Indication for Admission: Chief Complaint Patient presents with ??? Chest Pain Readmission/Mortality Score at discharge: Low 0-28, Medium 29-58, High >59 LACE+ Score Readmission Score: 55 Male Patient: 3 Urgent Admission: 15 Discharge Institution: Length of Stay: 2 Alternative Level of Care Status: 0 ED Visits in Previous 6 Months: 0 Elective Admission in Previous Year: 0 Comorbidity Score (by age & number of urgent admissions): 35 Hospital Course: Rubia Kowalski is a 42-year-old male With past medical history significant for type 1 diabetes, CAD status post PCI 6 years ago, tobacco abuse, presented with chest pain. States that for the past 2 days he has had substernal chest pain on exertion that radiates to the bilateral upper chest and left neck. Pain is associated with shortness of breath and nausea, no diaphoresis. He was admitted to telemetry, ACS ruled out with serial troponins. Cardiology was consulted, he underwent cardiac cath given his history of stents, no intervention required. AK I improved. Discharged home with no new medications, resume lisinopril and get labs repeated as outpatient. Follow-up with cardiology in 4 weeks. Chest pain TRIP CAD DM1 HTN GERD Tobacco abuse Findings that require further workup: repeat BMP 1-2 weeks Consults: cardiology Significant Diagnostic Studies: Recent Results (from the past 24 hour(s)) TROPONIN, QUANT Collection Time: 05/21/18 2:45 PM Result Value Ref Range TROPONIN I <0.015 <0.045 ng/mL. POCT glucose Collection Time: 05/21/18 6:17 PM Result Value Ref Range GLUCOSE POC 113 (H) 70 - 99 mg/dL TROPONIN, QUANT Collection Time: 05/21/18 6:43 PM Result Value Ref Range TROPONIN I <0.015 <0.045 ng/mL. POCT glucose Collection Time: 05/21/18 8:24 PM Result Value Ref Range GLUCOSE POC 165 (H) 70 - 99 mg/dL TROPONIN, QUANT Collection Time: 05/22/18 12:25 AM Result Value Ref Range TROPONIN I <0.015 <0.045 ng/mL. CBC W/DIFF AUTOMATED Collection Time: 05/22/18 5:13 AM Result Value Ref Range WBC 8.8 4.5 - 11.0 x10'3/uL RBC 4.14 (L) 4.70 - 6.10 x10'6/uL HGB 12.4 (L) 14.0 - 18.0 G/DL HCT 37.2 (L) 43.0 - 54.0 % MCV 89.9 80.0 - 94.0 FL MCH 30.0 27.0 - 31.0 PG MCHC 33.3 32.0 - 36.0 G/DL RDW 13.8 11.5 - 14.5 % PLT 179 130 - 400 x10'3/uL MPV 11.5 9.3 - 12.2 FL DIFFERENTIAL TYPE AUTOMATED DIFFERENTIAL NEUTROPHILS 73.0 % LYMPHOCYTES 16.6 % MONOCYTES 5.4 % EOSINOPHILS 3.7 % BASOPHILS 0.8 % IMMATURE GRANS 0.5 (H) 0 % ABS. NEUTROPHILS TOTAL 6.40 1.80 - 7.70 x10'3/uL ABS. LYMPHOCYTES 1.45 1.00 - 4.80 x10'3/uL ABS. MONOCYTES 0.47 0.30 - 0.82 x10'3/uL ABS. EOSINOPHILS 0.32 0.04 - 0.54 x10'3/uL ABS. BASOPHILS 0.07 0.01 - 0.08 x10'3/uL ABS. IMMATURE GRANULOCYTES 0.04 (H) 0.00 - 0.03 x10'3/uL BASIC METABOLIC PANEL Collection Time: 05/22/18 5:13 AM Result Value Ref Range GLUCOSE 262 (H) 70 - 99 MG/DL BUN 20 (H) 7 - 18 MG/DL CREATININE 1.47 (H) 0.7 - 1.3 MG/DL SODIUM 142 136 - 145 MMOL/L POTASSIUM 3.8 3.5 - 5.1 MMOL/L CHLORIDE 109 (H) 100 - 108 MMOL/L CO2 24.2 21 - 32 MMOL/L CALCIUM 7.8 (L) 8.5 - 10.1 MG/DL ANION GAP 12.6 8 - 20 MMOL/L BUN CREATININE RATIO 13.6 6 - 26 eGFR Non-Afr. Amer. 57 (L) >90 ML/MIN/1.73 M2 eGFR Afr. Amer. 66 (L) >90 ML/MIN/1.73 M2 HEMOGLOBIN, GLYCOSYLATED Collection Time: 05/22/18 5:13 AM Result Value Ref Range HGB A1C 8.3 (H) 4.2 - 6.3 % ESTIMATED AVERAGE GLUCOSE 192 mg/dL POCT glucose Collection Time: 05/22/18 6:05 AM Result Value Ref Range GLUCOSE POC 245 (H) 70 - 99 mg/dL POCT glucose Collection Time: 05/22/18 12:49 PM Result Value Ref Range GLUCOSE POC 148 (H) 70 - 99 mg/dL Radiology Reports : CXR - NACPP Discharge Exam: Filed Vitals: 05/22/18 1244 05/22/18 1300 05/22/18 1327 05/22/18 1356 BP: 152/76 151/84 147/82 148/75 Pulse: 74 71 85 80 Resp: 18 16 18 20 Temp: TempSrc: SpO2: 96% 97% 96% 94% Weight: Height: Physical Exam Constitutional: He is oriented to person, place, and time. He appears well- developed and well-nourished. No distress. HENT: Head: Normocephalic and atraumatic. Eyes: EOM are normal. Neck: Normal range of motion. Cardiovascular: Normal rate and regular rhythm. No murmur heard. Pulmonary/Chest: Effort normal. No respiratory distress. He has no wheezes. Abdominal: Soft. He exhibits no distension. There is no tenderness. Musculoskeletal: Normal range of motion. He exhibits no edema. Neurological: He is alert and oriented to person, place, and time. Skin: Skin is warm and dry. No erythema. Psychiatric: He has a normal mood and affect. His behavior is normal. Discharge Medications: Medication List CHANGE how you take these medications nitroglycerin 0.4 MG SL tablet Commonly known as: NITROSTAT Place 1 tablet (0.4 mg total) under the tongue every 5 (five) minutes as needed for Chest Pain. Maximum of 3 doses. What changed: See the new instructions. CONTINUE taking these medications ASPIRIN CHILDRENS 81 MG chewable tablet Generic drug: aspirin BRILINTA 60 MG tablet Generic drug: ticagrelor TAKE 1 TABLET BY MOUTH TWICE DAILY carvedilol 25 MG tablet Commonly known as: COREG Take 1 tablet (25 mg total) by mouth 2 (two) times daily. HUMALOG 100 UNIT/ML injection (VIAL) Generic drug: insulin lispro LIPITOR 40 MG tablet Generic drug: atorvastatin lisinopril 20 MG tablet Commonly known as: PRINIVIL,ZESTRIL NEXIUM 40 MG capsule Generic drug: esomeprazole NORVASC 10 MG tablet Generic drug: amlodipine VIIBRYD 40 MG tablet Generic drug: vilazodone Where to Get Your Medications These medications were sent to [facility] [address] [place] [address] [address] [facility] [place] [address] [address] [facility] [id number] ??? nitroglycerin 0.4 MG SL tablet Disposition: Home with self care Time Spent on Discharge: Less than 30 minutes Signed: EMBER HAN MD documented in this encounter Discharge Instructions * Discharge Instructions* Kenyetta Self RN - 05/22/2018 2:20 PM CDT Images from the original note were not included. Patient Education Chest Pain About this topic Chest pain is felt in the upper part of your body from your neck to your belly. You may feel pain, pressure, or tightness. Your heart and lungs are common sources of pain. You can also have pain fromyour chest muscles or the tendons and nerves in your chest. Your chest pain may be caused by a serious health problem or by something not as serious. Your doctor may use tests to record your heartbeats, use x-rays, or take your blood pressure to understand your chest pain. Treatment will depend on what is causing your chest pain. What are the causes? Some of the problems related to your heart include: ?? Heart attack. This is a blockage of blood supply to part of the heart. ?? Angina. This is similar to a heart attack, but without long-lasting heart damage. ?? Arrhythmia. This is abnormal heartbeats. ?? Pericarditis. This is irritation of the sac around the heart. Some of the problems that may not be related to your heart include: ?? Digestive problems like ulcers, indigestion, gastric reflux, gallstones ?? Lung problems like collapsed lung, blood clots, asthma, pneumonia ?? Rib injuries or muscle pain ?? Panic attack ?? Pinched nerve ?? Shingles What are the main signs? ?? Chest pain of any type should be checked by a doctor. ?? Signs that may show a more serious cause of chest pain are: ?? Squeezing or tightness in the chest which may spread to the back, neck, jaw, shoulders, or arms ?? Shortness of breath ?? Sweating ?? Dizziness ?? Upset stomach, nausea, or throwing up ?? Weakness ?? Feeling faint ?? If you have chest pain with any of these signs, call for emergency help. How does the doctor diagnose this health problem? Your doctor will do an exam. The doctor may ask you questions about your pain. Your doctor may order: ?? Lab tests ?? Chest x-ray ?? Electrocardiogram (ECG) ?? Echocardiogram ?? Stress test ?? Nuclear heart scanning ?? Computed tomography (CT) ?? Heart cath or catheterization How does the doctor treat this health problem? Your treatment will depend on what is causing the pain. Many times, drugs may be given to treat theproblem. Any chest pain could be serious. More serious problems can be treated by opening the vessel in your heart with a balloon or a metal straw called a stent. You may need surgery to replace the vessels in your heart. Always talk to your doctor about chest pain. What lifestyle changes are needed? Once your doctor finds the cause of your chest pain, you may be asked to make changes to your diet,activity, weight, and drugs you take. These changes will depend on the cause of your pain. What drugs may be needed? If chest pain is caused by a heart-related problem, the doctor may order drugs to: ?? Thin the blood ?? Dissolve a blood clot ?? Lower cholesterol ?? Lessen the work of your heart ?? Correct or prevent an abnormal heartbeat ?? Lower your blood pressure ?? Increase blood flow to the heart muscle ?? Relax the heart and help avoid spasms in the arteries If chest pain is caused by a something other than your heart, the doctor may order drugs to: ?? Help with pain ?? Treat stomach problems ?? Help with breathing ?? Help you relax ?? Control coughing What problems could happen? If the pain is due to a serious problem with the heart or lungs, the following things could happen: ?? Heart attack with long-lasting damage to the heart ?? Abnormal heartbeat that is too fast, too slow, or irregular ?? The heart stops beating. This is cardiac arrest. If not promptly treated, it can result in . What can be done to prevent this health problem? ?? If you smoke, stop. ?? Keep a healthy weight. If you are too heavy, lose weight. ?? Keep blood pressure, cholesterol, and high blood sugar (diabetes) under control. ?? Exercise at least 3 to 4 times a week. ?? Eat lots of fiber, fruits, starches, and vegetables and stay away from foods that are high in fats. When do I need to call the doctor? Activate the emergency medical system right away if you have signs of a heart attack. Call 911 in the [place] or [place]. The sooner treatment begins, the better your chances for recovery. Call for emergency help right away if you have: ?? Signs of heart attack: ?? Chest pain ?? Trouble breathing ?? Fast heartbeat ?? Feeling dizzy ?? Not had chest pain before and it does not go away with rest after [address] yourself to the hospital or have someone drive you. The emergency rescue people can begin to treat you theminute they arrive. If your doctor has given you nitroglycerin for heart pain, sit or lie down. ?? Place a pill under your tongue and allow it to dissolve. If your mouth is dry, take a small sip of water. ?? Wait 5 minutes and if the chest pain does not go away, call for help and put a second nitro pillunder your tongue. ?? Sometimes, your doctor will tell you to take a third pill after another 5 minutes. Where can I learn more? [place] [employer] http://www.heart.org/HEARTORG/Conditions/HeartAttack/AboutHeartAttacks/About-Hea rt-Attacks_UC_002038_Article.jsp [employer] [employer] http://www.heart.org/HEARTORG/Conditions/HeartAttack/SymptomsDiagnosisofHeartAtt ack/Yvzkra-Ndkbp-Zrcr_YFS_363702_Ffiffoq.jsp FamilyDoctor.org http://familydoctor.org/familydoctor/en/diseases-conditions/angina.printerview.a ll.html National Heart [employer] [facility] [place] http://www.nhlbi.nih.gov/health/health-topics/topics/angina/ Last Reviewed Date 2015-12-02 Consumer Information Use and Disclaimer This information is not specific medical advice and does not replace information you receive from your health care provider. This is only a brief summary of general information. It does NOT include all information about conditions, illnesses, injuries, tests, procedures, treatments, therapies, discharge instructions or life-style choices that may apply to you. You must talk with your health care provider for complete information about your health and treatment options. This information should not be used to decide whether or not to accept your health care provider???s advice, instructions or recommendations. Only your health care provider has the knowledge and training to provide advice that is right for you. Copyright Copyright ?? 2018 [employer]. and its affiliates and/or licensors. All rights reserved. * Attachments The following attachments cannot be sent through Care Everywhere. * QUITTING SMOKING (ALBANIAN) documented in this encounter Medications at Time of Discharge amlodipine (NORVASC) 10 MG tablet Take 10 mg by mouth daily. 09/24/2015 insulin lispro (HUMALOG) 100 UNIT/ML injection (VIAL) Inject into the skin see administration instructions. 02/11/2014 aspirin (ASPIRIN CHILDRENS) 81 MG chewable tablet Chew 1 tablet by mouth daily. 02/23/2014 0 atorvastatin (LIPITOR) 40 MG tablet Take 40 mg by mouth nightly at bedtime. 09/09/2015 11/08/19 2 2 BRILINTA 60 MG tablet TAKE 1 TABLET BY MOUTH TWICE DAILY 60 tablet 5 10/05/2017 9 carvedilol 25 MG tablet Take 1 tablet (25 mg total) by mouth 2 (two) times daily. 60 tablet 11 05/04/2017 4 esomeprazole (NEXIUM) 40 MG capsule Take 1 tablet by mouth daily. 02/23/2014 2 lisinopril 20 MG tablet Take 20 mg by mouth daily. 10/11/2015 0 nitroglycerin 0.[address] 1 tablet (0.4 mg total) under the tongue every 5 (five) minutes as needed for Chest Pain. Maximum of 3 doses. 30 tablet 1 05/22/2018 2 vilazodone (VIIBRYD) 40 MG tablet Viibryd (vilazodone) tablet 40 mg; take 1 tablet by mouth once a day with meal; 0; 23-Feb-2014; Active 02/23/2014 12/21/19 2 2 documented as of this encounter Progress Notes * Marycruz Champion, [employer] - 05/22/2018 1:33 PM CDT RNCM spoke with the patient at bedside. The patient stated his name and date of . The patient verified his address, PCP Dennis Crump, and [employer] as his insurance provider. The patient states he lives at home with his parents. His parents will be his ride home at discharge. He states his only DME is his insulin pump, glucometer, and blood pressure cuff. He uses [facility] in [place]. He denies current home health care or financial concern with hospital stay. No needs are noted at this time. Case management will continue to follow for discharge needs. documented in this encounter H&P Notes * Juanis Frazier MD - 05/22/2018 11:36 AM CDT HISTORY AND PHYSICAL INTERVAL NOTE: I have reviewed Rubia Kowalski History & Physical which was performed within the past 30 days.After examining Rubia Kowalski, no change has occurred in the patient's condition since the H&P was completed. Informed Consent Discussion: Risks, benefits, alternatives as well as the consequences of not performing the surgery/procedure were discussed with the patient and/or family/personal in store marketing representative. Questions were answered and the patient/family/personal in store marketing representative verbalized understanding and desires to proceed. Previous Adverse Experience with Sedation, Analgesia, or Anesthesia? No ASA Classification: 3 Mallampati: 3 NPO: 6 hours prior to procedure Physical Exam Constitutional: He is oriented to person, place, and time. He appears well- developed and well-nourished. No distress. HENT: Nose: No mucosal edema. Mouth/Throat: Oropharynx is clear and moist and mucous membranes are normal. No oropharyngeal exudate. Neck: Neck supple. No JVD present. Cardiovascular: Normal rate, regular rhythm, S1 normal, S2 normal and intact distal pulses. PMI is not displaced. No murmur heard. Pulmonary/Chest: Effort normal and breath sounds normal. No respiratory distress. Abdominal: Normal appearance. He exhibits no abdominal bruit and no mass. There is no hepatosplenomegaly. There is no tenderness. Musculoskeletal: Normal range of motion. He exhibits no deformity. Neurological: He is alert and oriented to person, place, and time. Skin: Skin is warm and dry. Psychiatric: He has a normal mood and affect. His behavior is normal. Thought content normal. Planned Sedation/Analgesic Agent(s): Versed/Fentanyl Planned Procedure(s): Cath/PTCI Signed: Juanis Frazier MD Source Note - Mike Lovell MD - 05/22/2018 10:33 AM CDT Consults Cardiology Chief complaint chest pain HPI I am seeing this very nice 42-year-old man in cardiac consultation is requested with attending physician. This patient lives in [place] and works [place] [employer] [place] [employer] with several employees. He is a smoker with type 1 diabetes mellitus diagnosed with was a teenager. He has a historyof CAD, status post prior stenting [address] Arechiga in [place]. Apparently the LAD. There is also moderate RCA disease. The nuclear MUGA scan in December 2013 showed a normal ejection fraction of 60%. At the time of his procedure he was told he had a small heart attack but no significant damage. The last 3-4 days she has noticed chest pain precordial rating to his neck and left arm. Associated with shortness of breath fatigue and weakness. This pain may also be associated with pains in his legs which may come at times outsider when he has a chest pain. The chest pain is very similar to when he had several years ago when he had a stent placed. His last discomfort was yesterday evening when he was sitting in bed lasts about 15-20 minutes. This generally relieved by rest. It is brought on by physical activity but also at rest at times. Moderate intensity with no diaphoresis nausea or vomiting. Review of Systems Constitutional: Positive for malaise/fatigue. Negative for chills, fever and weight loss. Eyes: Negative for blurred vision and double vision. Respiratory: Negative for cough and hemoptysis. Cardiovascular: Negative for orthopnea and PND. Gastrointestinal: Negative for blood in stool, constipation, heartburn, melena, nausea and vomiting. Genitourinary: Negative for dysuria. Musculoskeletal: Negative for myalgias. Skin: Negative for itching and rash. Neurological: Negative for dizziness and headaches. Endo/Heme/Allergies: Does not bruise/bleed easily. Psychiatric/Behavioral: Negative for depression. Physical Exam Constitutional: He is oriented to person, place, and time. He appears well- nourished. No distress. HENT: Head: Normocephalic. Eyes: Pupils are equal, round, and reactive to light. Neck: No JVD present. Thyromegaly present. Cardiovascular: Regular rhythm, S1 normal and S2 normal. No extrasystoles are present. PMI is not displaced. Exam reveals no gallop. No murmur heard. Pulses: Carotid pulses are 2+ on the right side, and 2+ on the left side. Radial pulses are 2+ on the right side, and 2+ on the left side. Femoral pulses are 2+ on the right side, and 2+ on the left side. Dorsalis pedis pulses are 2+ on the right side, and 2+ on the left side. Pulmonary/Chest: Breath sounds normal. He has no rales. Abdominal: Soft. Bowel sounds are normal. There is no hepatosplenomegaly. There is no tenderness. Musculoskeletal: He exhibits no edema. Neurological: He is alert and oriented to person, place, and time. No cranial nerve deficit. Abnormal muscle tone: Mild stroke in 2009 with no residual Skin: Skin is warm. He is not diaphoretic. Psychiatric: He has a normal mood and affect. Lab EKG sinus rhythm anteroseptal infarct age indeterminate Troponin negative ??3 BUN 27 creatinine elevated 1.6. Hemoglobin 12.5 white count 6500. Chest x-ray reviewed-normal heart size normal vascularity Impression Unstable angina pectoris CAD Status post remote stenting Abnormal EKG compatible with anteroseptal infarct Elevated BUN/creatinine-chronic kidney disease versus dehydration or combination Hypertensive cardiovascular disease Hyperlipidemia Old stroke with no residual Diabetes mellitus type 1 Recommendations I discussed the options with the patient. At this point there is no evidence of acute myocardial infarction. He has a high risk patient and my best recommendation would be to consider cardiac catheterization. I explained the procedure the risk of possible outcomes. Alternatives including stress testing was discussed with the patient. The patient is agreeable to the procedure. He will be hydrated preop. Risk factor control recommended and we discussed the absolute importance of smoking cessation. * Ember Han MD - 05/21/2018 4:55 PM CDT Hospitalist History and Physical Patient: Rubia Kowalski Date: 05/21/2018 male, 42-year-old Admit Date: 05/21/2018 Attending: Ember Han MD REASON FOR ADMISSION: Chest Pain HISTORY OF PRESENT ILLNESS: Rubia Kowalski is a 42-year-old male With past medical history significant for type 1 diabetes, CAD status post PCI 6 years ago, tobacco abuse, presented with chest pain. States that for the past 2 days he has had substernal chest pain on exertion that radiates to the bilateral upper chest and left neck. Pain is associated with shortness of breath and nausea, no diaphoresis. Allergy Allergies Allergen Reactions ??? Guaifenesin Swelling ??? Simvastatin Myalgias Medication list Prescriptions Prior to Admission Medication Sig Dispense Refill ??? amlodipine (NORVASC) 10 MG tablet Take 10 mg by mouth daily. ??? aspirin (ASPIRIN CHILDRENS) 81 MG chewable tablet Chew 1 tablet by mouth daily. ??? atorvastatin (LIPITOR) 40 MG tablet Take 40 mg by mouth nightly at bedtime. ??? BRILINTA 60 MG tablet TAKE 1 TABLET BY MOUTH TWICE DAILY 60 tablet 5 ??? carvedilol 25 MG tablet Take 1 tablet (25 mg total) by mouth 2 (two) times daily. 60 tablet 11 ??? esomeprazole (NEXIUM) 40 MG capsule Take 1 tablet by mouth daily. ??? insulin lispro (HUMALOG) 100 UNIT/ML injection (VIAL) Humalog; per pump; 0; 11-Feb-2014; Active ??? lisinopril 20 MG tablet Take 20 mg by mouth daily. ??? vilazodone (VIIBRYD) 40 MG tablet Viibryd (vilazodone) tablet 40 mg; take 1 tablet by mouth once a day with meal; 0; 23-Feb-2014; Active ??? nitroGLYCERIN 0.4 MG SL tablet nitroglycerin tablet, sublingual 0.4 mg; apply 1 tablet under tongue, for chest pain as needed; 25; 3; 11-Feb-2014; Active No current facility-administered medications on file prior to encounter. Current Outpatient Prescriptions on File Prior to Encounter Medication Sig Dispense Refill ??? amlodipine (NORVASC) 10 MG tablet Take 10 mg by mouth daily. ??? aspirin (ASPIRIN CHILDRENS) 81 MG chewable tablet Chew 1 tablet by mouth daily. ??? atorvastatin (LIPITOR) 40 MG tablet Take 40 mg by mouth nightly at bedtime. ??? BRILINTA 60 MG tablet TAKE 1 TABLET BY MOUTH TWICE DAILY 60 tablet 5 ??? carvedilol 25 MG tablet Take 1 tablet (25 mg total) by mouth 2 (two) times daily. 60 tablet 11 ??? esomeprazole (NEXIUM) 40 MG capsule Take 1 tablet by mouth daily. ??? insulin lispro (HUMALOG) 100 UNIT/ML injection (VIAL) Humalog; per pump; 0; 11-Feb-2014; Active ??? lisinopril 20 MG tablet Take 20 mg by mouth daily. ??? vilazodone (VIIBRYD) 40 MG tablet Viibryd (vilazodone) tablet 40 mg; take 1 tablet by mouth once a day with meal; 0; 23-Feb-2014; Active ??? nitroGLYCERIN 0.4 MG SL tablet nitroglycerin tablet, sublingual 0.4 mg; apply 1 tablet under tongue, for chest pain as needed; 25; 3; 11-Feb-2014; Active Past Medical History Past Medical History: Diagnosis Date ??? CAD (coronary artery disease) ??? Colitis ??? CVA (cerebral vascular accident) 2009 ??? Diabetes ??? Diabetic retinopathy ??? GERD (gastroesophageal reflux disease) ??? Hyperlipidemia ??? Hypertension ??? Lumbago ??? Personal history of MRSA (methicillin resistant Staphylococcus aureus) MRSA abscess on the face(negative cultures in 2013) Past Surgical History: Procedure Laterality Date ??? HEART CATH 02/20/2014 Cardiac Cath ??? SKIN BIOPSY ??? TONSILLECTOMY ??? XA CORONARY INTERVENTION 02/24/2014 MARTHA to the proximal LAD Social History Social History Social History ??? Marital status: Spouse name: N/A ??? Number of children: 1 ??? 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 ??? [employer] Social History Main Topics ??? Smoking status: Current Every Day Smoker Packs/day: 2.00 Types: Cigarettes ??? Smokeless tobacco: Never Used ??? Alcohol use Yes Comment: 4-6 weekly ??? Drug use: No ??? Sexual activity: Yes Other Topics Concern ??? 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 Special Diet Yes DM diet ??? Caffeine Concern Yes 3-4 Diet Soda daily Social History Narrative Family History Family History Problem Relation Age of Onset ??? Stent Mother 45 stents ??? Heart Attack Mother ??? Valve Disease Sister Valve problem ??? Coronary artery disease Other REVIEW OF SYSTEMS: A 14 point review of systems was taken and pertinent positive as per HPI PHYSICAL EXAMINATION: Vital 24 Hour Range Most Recent Value Temperature Temp Min: 97.5 ??F (36.4 ??C) Max: 98.2 ??F (36.8 ??C) 97.5 ??F (36.4 ??C) Pulse Pulse Min: 71 Max: 78 71 Respiratory Resp Min: 13 Max: 18 13 Blood Pressure BP Min: 139/85 Max: 150/88 139/85 Pulse Oximetry SpO2 Min: 96 % Max: 98 % 96 % O2 No Data Recorded Vital Most Recent Value First Value Weight 88.5 kg (195 lb) Weight: 88.5 kg (195 lb) Height 5' 11 (180.3 cm) Height: 5' 11 (180.3 cm) BMI 27.3 N/A Physical Exam: Physical Exam Constitutional: He is oriented to person, place, and time. He appears well- developed and well-nourished. No distress. HENT: Head: Normocephalic and atraumatic. Eyes: EOM are normal. Neck: Normal range of motion. Cardiovascular: Normal rate and regular rhythm. No murmur heard. Pulmonary/Chest: Effort normal. No respiratory distress. He has no wheezes. Abdominal: Soft. He exhibits no distension. There is no tenderness. Musculoskeletal: Normal range of motion. He exhibits no edema. Neurological: He is alert and oriented to person, place, and time. Skin: Skin is warm and dry. No erythema. Psychiatric: He has a normal mood and affect. His behavior is normal. Intake/Output last 3 shifts: Labs: Recent Labs Lab 05/21/18 1234 NA 139 K 3.8 CL 105 CO2 26.3 AGAP 11.5 BUN 27* CR 1.59* BUNCREATININ 17.0 GFRNON 52* GFR 60* GLU 211* CA 8.1* Recent Labs Lab 05/21/18 1234 WBC 6.5 RBC 4.24* HGB 12.5* HCT 37.9* MCV 89.4 MCH 29.5 MCHC 33.0 PLT 184 RDW 13.5 MPV 11.1 Recent Labs Lab 05/21/18 1234 AST 18 ALT 22 No results for input(s): INR, PTT in the last 168 hours. Invalid input(s): ABG arterial blood gases Recent Labs Lab 05/21/18 1234 05/21/18 1445 TROP <0.015 <0.015 No results for input(s): PH, PCO2, PO2, [id number], BICARBWB, BASEDEFICIT, BASEEXCESS in the [id number] hours. Imagining & Other Studies CXR NACPP Results for orders placed or performed during the hospital encounter of 05/21/18 ECG 12-Lead Narrative 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1975 Requested By: STEVE ROCKWELL Order Number: [id number] Reading MD: Measurements Intervals [place] Rate: 74 P: 20 AZ: 132 QRS: -14 QRSD: 93 T: 45 QT: 376 QTc: 419 Interpretive Statements SINUS RHYTHM SEPTAL MYOCARDIAL INFARCTION, OF INDETERMINATE AGE Compared to ECG 09/24/2015 10:48:30 Myocardial infarct finding now present Assessment & Plan Chest pain Monitor on tele Serial trops Cardiology consult Cont home meds - aspirin, statin, BB TRIP Hold lisinopril Daily labs CAD S/p stenting ~6 years ago See above, holding lisinopril for TRIP, otherwise cont home meds DM1 Use insulin pump, accuchecks to be done and recorded in Epic A1c HTN Cont home meds except lisinopril, monitor and add back as tolerated GERD Cont PPI Tobacco abuse Counseled on cessation Nicoderm patch I have seen and examined the patient independently and anticipate patient will require 2 midnight. EMBER HAN MD 05/21/2018 4:55 PM documented in this encounter Consult Notes * Mike Lovell MD - 05/22/2018 10:33 AM CDT Consults Cardiology Chief complaint chest pain HPI I am seeing this very nice 42-year-old man in cardiac consultation is requested with attending physician. This patient lives in [place] and works locally [employer] on the [employer] with several employees. He is a smoker with type 1 diabetes mellitus diagnosed with was a teenager. He has a historyof CAD, status post prior stenting [address] Arechiga in [place]. Apparently the LAD. There is also moderate RCA disease. The nuclear MUGA scan in December 2013 showed a normal ejection fraction of 60%. At the time of his procedure he was told he had a small heart attack but no significant damage. The last 3-4 days she has noticed chest pain precordial rating to his neck and left arm. Associated with shortness of breath fatigue and weakness. This pain may also be associated with pains in his legs which may come at times outsider when he has a chest pain. The chest pain is very similar to when he had several years ago when he had a stent placed. His last discomfort was yesterday evening when he was sitting in bed lasts about 15-20 minutes. This generally relieved by rest. It is brought on by physical activity but also at rest at times. Moderate intensity with no diaphoresis nausea or vomiting. Review of Systems Constitutional: Positive for malaise/fatigue. Negative for chills, fever and weight loss. Eyes: Negative for blurred vision and double vision. Respiratory: Negative for cough and hemoptysis. Cardiovascular: Negative for orthopnea and PND. Gastrointestinal: Negative for blood in stool, constipation, heartburn, melena, nausea and vomiting. Genitourinary: Negative for dysuria. Musculoskeletal: Negative for myalgias. Skin: Negative for itching and rash. Neurological: Negative for dizziness and headaches. Endo/Heme/Allergies: Does not bruise/bleed easily. Psychiatric/Behavioral: Negative for depression. Physical Exam Constitutional: He is oriented to person, place, and time. He appears well- nourished. No distress. HENT: Head: Normocephalic. Eyes: Pupils are equal, round, and reactive to light. Neck: No JVD present. Thyromegaly present. Cardiovascular: Regular rhythm, S1 normal and S2 normal. No extrasystoles are present. PMI is not displaced. Exam reveals no gallop. No murmur heard. Pulses: Carotid pulses are 2+ on the right side, and 2+ on the left side. Radial pulses are 2+ on the right side, and 2+ on the left side. Femoral pulses are 2+ on the right side, and 2+ on the left side. Dorsalis pedis pulses are 2+ on the right side, and 2+ on the left side. Pulmonary/Chest: Breath sounds normal. He has no rales. Abdominal: Soft. Bowel sounds are normal. There is no hepatosplenomegaly. There is no tenderness. Musculoskeletal: He exhibits no edema. Neurological: He is alert and oriented to person, place, and time. No cranial nerve deficit. Abnormal muscle tone: Mild stroke in 2009 with no residual Skin: Skin is warm. He is not diaphoretic. Psychiatric: He has a normal mood and affect. Lab EKG sinus rhythm anteroseptal infarct age indeterminate Troponin negative ??3 BUN 27 creatinine elevated 1.6. Hemoglobin 12.5 white count 6500. Chest x-ray reviewed-normal heart size normal vascularity Impression Unstable angina pectoris CAD Status post remote stenting Abnormal EKG compatible with anteroseptal infarct Elevated BUN/creatinine-chronic kidney disease versus dehydration or combination Hypertensive cardiovascular disease Hyperlipidemia Old stroke with no residual Diabetes mellitus type 1 Recommendations I discussed the options with the patient. At this point there is no evidence of acute myocardial infarction. He has a high risk patient and my best recommendation would be to consider cardiac catheterization. I explained the procedure the risk of possible outcomes. Alternatives including stress testing was discussed with the patient. The patient is agreeable to the procedure. He will be hydrated preop. Risk factor control recommended and we discussed the absolute importance of smoking cessation. documented in this encounter OR Notes * Brief Op Note - Juanis Frazier MD - 05/22/2018 11:58 AM CDT Procedure Note Rubia Kowalski 05/22/2018 Procedure: Left heart catheterization Pre-Op Diagnosis: Coronary artery disease with angina. Post-Op Diagnosis: Coronary artery disease with angina Findings: EF: 63% LVEDP: 16 mmHg LV: 136/16 mmHg AO: 145/79 (107) mmHg Coronary Dominance: Right Left Main: Luminal Irregularities Left Anterior Descending Artery: 30% (after patent stent) Diagonal Artery: 40-50% Left Circumflex Artery: 40- 50% Obtuse Marginal Artery: Luminal Irregularities Right Coronary Artery: Luminal Irregularities Posterior Descending Artery: Luminal Irregularities Complications: None Specimen(s) Removed: None Anesthesia: Conscious sedation Surgeon: JUANIS FRAZIER MD Estimated Blood Loss: less than 5 mL JUANIS FRAZIER MD Date: 05/22/2018 Time: 11:58 AM documented in this encounter ED Notes * Steve Rockwell MD - 05/21/2018 6:19 PM CDT Chief Complaint Chief Complaint Patient presents with ??? Chest Pain Blood pressure 139/85, pulse 71, temperature 97.5 ??F (36.4 ??C), temperature source Oral, resp. rate 13, height 5' 11 (1.803 m), weight 88.5 kg (195 lb), SpO2 96 %. 42-year-old male with past medical history pertinent for coronary artery disease, status post stenting, diabetes, hypertension, hyperlipidemia, and cigarette abuse presents with chest pain. The patient states the pain is been present intermittently for the past 2-3 days and is present from his right side, radiating to the left side of his chest. He also reports shortness of breath, stating that he feels like he is unable to catch his breath. He states the pain is worse with exertion, and gets better with rest. He states he is not sure if he has had this pain previously. He denies fevers, chills, sweats, or any other constitutional symptoms. His cardiology care is provided in [place]. History of Present Illness Medical History ALLERGIES: Allergies Allergen Reactions ??? Guaifenesin Swelling ??? Simvastatin Myalgias MEDICATIONS: Prior to Admission medications Medication Sig Start Date End Date Taking? Authorizing Provider amlodipine (NORVASC) 10 MG tablet Take 10 mg by mouth daily. 09/24/15 Yes Doc Abstract aspirin (ASPIRIN CHILDRENS) 81 MG chewable tablet Chew 1 tablet by mouth daily. 02/23/14 Yes Doc Abstract atorvastatin (LIPITOR) 40 MG tablet Take 40 mg by mouth nightly at bedtime. 09/09/15 Yes Doc Abstract BRILINTA 60 MG tablet TAKE 1 TABLET BY MOUTH TWICE DAILY 10/05/17 Yes MARIO [facility]all carvedilol 25 MG tablet Take 1 tablet (25 mg total) by mouth 2 (two) times daily. 05/04/17 Yes MARIO Mendenhall esomeprazole (NEXIUM) 40 MG capsule Take 1 tablet by mouth daily. 02/23/14 Yes Doc Abstract insulin lispro (HUMALOG) 100 UNIT/ML injection (VIAL) Humalog; per pump; 0; -Jan-2014; Active 02/11/14 Yes Doc Abstract lisinopril 20 MG tablet Take 20 mg by mouth daily. 10/11/15 Yes Doc Abstract vilazodone (VIIBRYD) 40 MG tablet Viibryd (vilazodone) tablet 40 mg; take 1 tablet by mouth once a day with meal; 0; -Feb-2014; Active 02/23/14 Yes Doc Abstract nitroGLYCERIN 0.4 MG SL tablet nitroglycerin tablet, sublingual 0.4 mg; apply 1 tablet under tongue, for chest pain as needed; 25; 3; -Jan-2014; Active 02/11/14 Doc Abstract PAST MEDICAL HISTORY: Past Medical History: Diagnosis Date ??? CAD (coronary artery disease) ??? Colitis ??? CVA (cerebral vascular accident) 2009 ??? Diabetes ??? Diabetic retinopathy ??? GERD (gastroesophageal reflux disease) ??? Hyperlipidemia ??? Hypertension ??? Lumbago ??? Personal history of MRSA (methicillin resistant Staphylococcus aureus) MRSA abscess on the face(negative cultures in 2013) PAST SURGICAL HISTORY: Past Surgical History: Procedure Laterality Date ??? HEART CATH 02/20/2014 Cardiac Cath ??? SKIN BIOPSY ??? TONSILLECTOMY ??? XA CORONARY INTERVENTION 02/24/2014 MARTHA to the proximal LAD FAMILY HISTORY: Family History Problem Relation Age of Onset ??? Stent Mother 45 stents ??? Heart Attack Mother ??? Valve Disease Sister Valve problem ??? Coronary artery disease Other SOCIAL HISTORY: Social History Substance Use Topics ??? Smoking status: Current Every Day Smoker Packs/day: 2.00 Types: Cigarettes ??? Smokeless tobacco: Never Used ??? Alcohol use Yes Comment: 4-6 weekly Review of Systems Review of Systems Constitutional: Negative. Negative for chills, diaphoresis, fatigue and fever. Respiratory: Positive for shortness of breath. Negative for cough, chest tightness and wheezing. Cardiovascular: Positive for chest pain. Negative for palpitations and leg swelling. Gastrointestinal: Negative for abdominal pain, diarrhea, nausea and vomiting. Genitourinary: Negative. Negative for dysuria. Musculoskeletal: Negative. Negative for arthralgias. Skin: Negative. Negative for rash and wound. Neurological: Positive for dizziness and light-headedness. Psychiatric/Behavioral: Negative. All other systems reviewed and are negative. Physical Exam Filed Vitals: 05/21/18 1430 05/21/18 1447 05/21/18 1536 05/21/18 1553 BP: 142/72 139/85 Pulse: 78 74 71 Resp: 15 14 13 Temp: 97.5 ??F (36.4 ??C) TempSrc: Oral SpO2: 96% 96% 96% Weight: Height: 5' 11 (1.803 m) Physical Exam Constitutional: He is oriented to person, place, and time. He appears well- developed and well-nourished. No distress. HENT: Head: Normocephalic and atraumatic. Eyes: Pupils are equal, round, and reactive to light. Neck: Normal range of motion. Neck supple. Cardiovascular: Normal rate, regular rhythm, normal heart sounds and intact distal pulses. Exam reveals no gallop and no friction rub. No murmur heard. Pulmonary/Chest: Effort normal and breath sounds normal. No respiratory distress. He has no wheezes. He has no rales. He exhibits no tenderness. Abdominal: Soft. Bowel sounds are normal. He exhibits no distension and no mass. There is no tenderness. There is no rebound and no guarding. Musculoskeletal: Normal range of motion. He exhibits no edema, tenderness or deformity. Neurological: He is alert and oriented to person, place, and time. No cranial nerve deficit. Coordination normal. Skin: Skin is warm and dry. No rash noted. He is not diaphoretic. No erythema. No pallor. Psychiatric: He has a normal mood and affect. His behavior is normal. Nursing note and vitals reviewed. Diagnostic Studies / Procedures ELECTROCARDIOGRAMS: Results for orders placed or performed during the hospital encounter of 05/21/18 ECG 12-Lead Narrative 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1975 Requested By: STEVE ROCKWELL Order Number: [id number] Reading MD: Measurements Intervals [place] Rate: 74 P: 20 AZ: 132 QRS: -14 QRSD: 93 T: 45 QT: 376 QTc: 419 Interpretive Statements SINUS RHYTHM SEPTAL MYOCARDIAL INFARCTION, OF INDETERMINATE AGE Compared to ECG 09/24/2015 10:48:30 Myocardial infarct finding now present LABORATORY STUDIES: Results for orders placed or performed during the hospital encounter of 05/21/18 CBC W/DIFF AUTOMATED Result Value Ref Range WBC 6.5 4.5 - 11.0 x10'3/uL RBC 4.24 (L) 4.70 - 6.10 x10'6/uL HGB 12.5 (L) 14.0 - 18.0 G/DL HCT 37.9 (L) 43.0 - 54.0 % MCV 89.4 80.0 - 94.0 FL MCH 29.5 27.0 - 31.0 PG MCHC 33.0 32.0 - 36.0 G/DL RDW 13.5 11.5 - 14.5 % PLT 184 130 - 400 x10'3/uL MPV 11.1 9.3 - 12.2 FL DIFFERENTIAL TYPE AUTOMATED DIFFERENTIAL NEUTROPHILS 60.1 % LYMPHOCYTES 26.2 % MONOCYTES 7.2 % EOSINOPHILS 5.1 % BASOPHILS 0.9 % IMMATURE GRANS 0.5 (H) 0 % ABS. NEUTROPHILS TOTAL 3.91 1.80 - 7.70 x10'3/uL ABS. LYMPHOCYTES 1.70 1.00 - 4.80 x10'3/uL ABS. MONOCYTES 0.47 0.30 - 0.82 x10'3/uL ABS. EOSINOPHILS 0.33 0.04 - 0.54 x10'3/uL ABS. BASOPHILS 0.06 0.01 - 0.08 x10'3/uL ABS. IMMATURE GRANULOCYTES 0.03 0.00 - 0.03 x10'3/uL COMPREHENSIVE METABOLIC PANEL Result Value Ref Range GLUCOSE 211 (H) 70 - 99 MG/DL BUN 27 (H) 7 - 18 MG/DL CREATININE 1.59 (H) 0.7 - 1.3 MG/DL SODIUM 139 136 - 145 MMOL/L POTASSIUM 3.8 3.5 - 5.1 MMOL/L CHLORIDE 105 100 - 108 MMOL/L CO2 26.3 21 - 32 MMOL/L CALCIUM 8.1 (L) 8.5 - 10.1 MG/DL TOTAL BILIRUBIN 0.6 0.2 - 1.2 MG/DL TOTAL PROTEIN 7.2 6.4 - 8.2 G/DL ALBUMIN 3.3 (L) 3.4 - 5.0 G/DL AST 18 15 - 37 U/L ALT 22 16 - 60 U/L ALK PHOS 94 50 - 136 U/L ANION GAP 11.5 8 - 20 MMOL/L BUN CREATININE RATIO 17.0 6 - 26 A/G RATIO 0.8 (L) 1.0 - 2.0 RATIO eGFR Non-Afr. Amer. 52 (L) >90 ML/MIN/1.73 M2 eGFR Afr. Amer. 60 (L) >90 ML/MIN/1.73 M2 TROPONIN, QUANT Result Value Ref Range TROPONIN I <0.015 <0.045 ng/mL. TROPONIN, QUANT Result Value Ref Range TROPONIN I <0.015 <0.045 ng/mL. IMAGING STUDIES XR CHEST PORTABLE Final Result by User, [id number] (05/21 1976) Date: 05/21/2018 12:54 PM Exam: XR CHEST PORTABLE Comparison: No comparisons. Technique: Single view chest per History: Chest pain that radiates up to the left neck at times. Pain started 3-4 days ago. Findings: The cardiac silhouette and pulmonary vascularity are within normal limits. The lungs are clear without consolidation or pleural effusion. There is no pneumothorax. The osseous structures are intact. Impression: No acute cardiopulmonary disease process. Course / Medical Decision Making MDM Number of Diagnoses or Management Options Chest pain, unspecified type: new and requires workup Diagnosis management comments: Pulse oximetry interpreted by me: 96% on room air. Impression normal Rhythm strip interpreted by me: Normal sinus rhythm. Rate 74. No arrhythmias EKG interpreted by me: Normal sinus rhythm. Rate 74. Normal axis, normal intervals. ST/T-segment are grossly within normal limits. No prior exams are available for comparison. Assessment: 42-year-old man presents with chest pain Differential: High probability functional pain; moderate probably cardiac pain; low probability ACS/NC, PE Plan: 1. EKG 2. Aspirin 3. Chest x-ray 4. Labs 5. Above shows no discrete cause for the patient's symptoms. His HEART score is 4. Plan admission to the hospital for further evaluation and management 6. On-call hospitalist agrees to admit the patient 7. Patient reassessed frequently. Admission orders placed [facility] Heart Score History: Chest discomfort, Relieved by rest or Nitro and Provoked by exertion or emotional stress 3+ symptoms - 2 pts ECG: Normal EKG 0 pts New Ischemic changes -- Ischemic ST segment depression >1mm (2pts) ` -- New Ischemic T wave inversions >2mm --Transient ST elevation / ST elevation Non-specific changes -- repolarization abnormalities (1Pts) -- non-specific ST elevation changes -- pacemaker rhythms -- digoxin effect, LVH, bundle branch blocks AGE: < 45 Years - 0 pts RISK FACTORS: Current/Recent smoker (<90d), Diabetes, Hypertension, Hypercholesterolemia and Known CAD - 2 pts > 3 risk factors - 2 pts TROPONIN: negative - 0 pt TOTAL SCORE: 4 > 7 ~ HIGH RISK ~ Ischemic EKG or +Troponin Or Highly/Moderately Suspicious Chest pain 4-6 ~ Intermediate Risk ~ Observation status 0-3 ~ Low Risk ~ consider Outpatient Evaluation Amount and/or Complexity of Data Reviewed Clinical lab tests: ordered and reviewed Tests in the radiology section of CPT??: ordered and reviewed Tests in the medicine section of CPT??: reviewed and ordered Decide to obtain previous medical records or to obtain history from someone other than the patient:yes Obtain history from someone other than the patient: yes Review and summarize past medical records: yes Discuss the patient with other providers: yes Independent visualization of images, tracings, or specimens: yes Risk of Complications, Morbidity, and/or Mortality Presenting problems: moderate Diagnostic procedures: moderate Management options: moderate . Clinical Impression Chest pain, unspecified type (Primary) Disposition: Admit Stvee Rockwell MD 05/21/18 1822 * Gabriella Gonzalez RN - 05/21/2018 12:39 PM CDT Came to ED for c/o chest pain that radiates up to left neck at times. Reports pain started 3-4 daysago. documented in this encounter Plan of Treatment Not on file documented as of this encounter Procedures Procedure Name Priority Date/Time Associated Diagnosis Comments XA [facility] POSS Today 05/22/2018 2:16 PM CDT POCT GLUCOSE - MARSHALL DOCKED DEVICE Routine 05/22/2018 12:49 PM CDT POCT GLUCOSE - MARSHALL DOCKED DEVICE Routine 05/22/2018 6:05 AM CDT HEMOGLOBIN, GLYCOSYLATED Routine 05/22/2018 5:13 AM CDT BASIC METABOLIC PANEL Routine 05/22/2018 5:13 AM CDT CBC W/DIFF AUTOMATED Routine 05/22/2018 5:13 AM CDT TROPONIN, QUANT TIMED 05/22/2018 12:25 AM CDT POCT GLUCOSE - MARSHALL DOCKED DEVICE Routine 05/21/2018 8:24 PM CDT TROPONIN, QUANT TIMED 05/21/2018 6:43 PM CDT POCT GLUCOSE - MARSHALL DOCKED DEVICE Routine 05/21/2018 6:17 PM CDT TROPONIN, QUANT STAT 05/21/2018 2:45 PM CDT XR CHEST PORTABLE STAT 05/21/2018 1:0 2 PM CDT COMPREHENSIVE METABOLIC PANEL STAT 05/21/2018 12:34 PM CDT CBC W/DIFF AUTOMATED STAT 05/21/2018 12:34 PM CDT TROPONIN, QUANT STAT 05/21/2018 12:34 PM CDT ECG 12-LEAD STAT 05/21/2018 12:29 PM CDT documented in this encounter Results * XA [facility] POSS (05/22/2018 2:16 PM CDT) Anatomical Region Laterality Modality Cardiac Ham Trimmer Narrative 05/29/2018 8:29 AM CDT Diagnostic Cardiac Catheterization Report Cardiac Catheterization / Electrophysiology Laboratory Patient Information Patient: RUBIA KOWALSKI Medical Records Number: [id number] Address: [address] [place] [address]: [place] ?? State: [place] Zip: [phone] Date of : 1975 ?? Gender: Male Event Identifiers Date of Procedure: 05/22/2018 Catheterization Number: [id number] Attending MD: JUANIS FRAZIER Referring MD: Jen CRUMP MD Referring MD: MD Geni ([place]) Procedure Description Cor/LV Indications Primary Hypertension ?? Status Post Coronary Intervention ?? Coronary Artery Disease ?? Atypical Chest Pain ?? History Rubia Kowalski is a 42-year-old male with past medical history significant for coronary artery disease status post percutaneous coronary intervention to the left anterior descending artery, who presents with worsening chest discomfort. ??He is now referred for left heart catheterization. PROCEDURES PERFORMED: 1. ??Left heart catheterization. 2. ??Selective coronary angiography. 3. ??Left ventriculography. Technique The patient was identified by the physician, nursing, and technical staff. The procedure's purpose, conduct, potential outcomes, and possible complications were explained to the patient and written informed consent was obtained. ??The patient was placed on the procedure table. ??Appropriate ECG, blood pressure, and pulse oximetry monitoring were established. ?? Patient identification and the procedure plan was confirmed by the performing physician. ?? The patient was prepped and draped for the procedure utilizing sterile technique. ??The right wrist was prepped and draped in the usual sterile fashion. ??After adequate local anesthesia was given, a 6-Guyanese sheath was placed in the right radial artery under ultrasound guidance. ??The sheath was flushed and a 5-Guyanese Jonathan coronary diagnostic catheter was advanced over the guidewire, used to cannulate the left coronary artery and selective angiography was performed in the LINDSAY and BELGIAN projections. ??The catheter was then used to cannulate the right coronary artery and selective angiography was performed in the LINDSAY and BELGIAN projections. ??The catheter was then exchanged for a 5-Guyanese pigtail catheter which was advanced into the left ventricle, hemodynamic measurements were obtained, and left ventriculography was performed. ??Hence, the procedure was completed. The patient tolerated the procedure without any complications. ??The right radial arterial sheath was removed and a TR band was placed. ??The patient was transferred back to his room in stable condition. ??Heparin was used for anticoagulation. I performed conscious sedation for a total of 15 minutes from 11:45 a.m. to 12:00 p.m. ??I supervised and directed Ashley Hamm RN who assisted in monitoring the patient's level of consciousness and physiologic status for the procedure. Contrast Contrast Type Contrast Amount Isovue 60 ml Fluoro Time: ??1.8 minutes Anticoagulants Type: Heparin Total Dose: 3600 units Diagnostic Catheterization Findings Cath Result: Abnormal Coronary Dominance: Right Coronary Artery Disease: Yes LM Stenosis: 0% LAD Stenosis: 0% Other LAD (Distal/Diagonal): 50% RCA Stenosis: 0% CIRC Stenosis: 40% Comments on Coronary Arteries Left Main: Left main coronary artery is a large caliber vessel that gives rise to left anterior descending artery and left circumflex artery and there are luminal irregularities. LAD: Left anterior descending artery is a moderate caliber vessel that gives rise to a diagonal artery and multiple septal perforators. ??There is a patent stent in the mid left anterior descending artery. ??There is 30% stenosis distal to the previously placed stent. ??There is a 40% to 50% ostial stenosis in the diagonal artery. Circumflex: The left circumflex artery is a moderate caliber vessel that gives rise to a large obtuse marginal artery before terminating in the atrioventricular groove. ??There is a 30% to 40% stenosis in the circumflex artery after the takeoff of the obtuse marginal artery. RCA: The right coronary artery is a moderate caliber vessel that gives rise to multiple acute marginal arteries, a posterior descending artery and posterolateral artery. ??There are luminal irregularities in the right coronary artery. Left Ventriculography EF: 63% Hemodynamics State: PRE ANGIO Pressures Site Pressure 1 Pressure 2 Pressure 3 Heart Rate LV (S/ED) 136 8 16 71 State: POST ANGIO Pressures Site Pressure 1 Pressure 2 Pressure 3 Heart Rate AO (S/D) 145 79 ??71 LV (S/ED) 144 5 17 71 Summary 1. ??Stable coronary artery disease compared to previous angiography. 2. ??Normal left ventricular function with an ejection fraction of 63%. Plan Recommend medical management of coronary artery disease and evaluation for potential other etiologies of chest discomfort. JUANIS FRAZIER ? [facility] DATE INTERPRETED: 05/22/18 @ 12:08 ?? DATE TRANSCRIBED: 05/24/18 Mike Lovell MD BURLAPPER Final Result * (ABNORMAL) POCT glucose (05/22/2018 12:49 PM CDT) [facility] GLUCOSE POC 148(H) 70 - 99 mg/dL 05/22/2018 1:04 PM CDT [facility] ORDERS INTERFACE 05/22/2018 12:4 9 PM CDT Ember Han MD POCT ORDERABLES - DEVICE Fin al Result [facility] ORDERS INTERFACE US * (ABNORMAL) POCT glucose (05/22/2018 6:05 AM CDT) [facility] GLUCOSE POC 245(H) 70 - 99 mg/dL 05/22/2018 6:12 AM CDT [facility] ORDERS INTERFACE 05/22/2018 6:05 AM CDT Ember Han MD POCT ORDERABLES - DEVICE Fin al Result [facility] ORDERS INTERFACE US * (ABNORMAL) HEMOGLOBIN, GLYCOSYLATED (05/22/2018 5:13 AM CDT) HGB A1C 8.3(H) 4.2 - 6.3 % 05/22/2018 6:10 AM CDT [facility] Comment: ADA GUIDELINES 2010 5.7 TO 6.4% INCREASED RISK OF DIABETES > OR = 6.5% CONSISTENT WITH DIABETES ESTIMATED AVG GLUCOSE 192 mg/dL 05/22/2018 6:10 AM CDT [facility] 05/22/2018 5:13 AM CDT Ember Han MD LABORATORY Final Result Performing Organization Address [facility]/ZIP Co de Phone Number [facility] [address] [address], [place] [phone] * (ABNORMAL) BASIC METABOLIC PANEL (05/22/2018 5:13 AM CDT) GLUCOSE 262(H) 70 - 99 MG/DL 05/22/2018 6:11 AM CDT [facility] BUN 20(H) 7 - 18 MG/DL 05/22/2018 6:11 AM CDT [facility] CREATININE S/P/B 1.47(H) 0.7 - 1.3 MG/DL 05/22/2018 6:11 AM CDT [facility] SODIUM S/P/B 142 136 - 145 MMOL/L 05/22/2018 6:11 AM CDT [facility] POTASSIUM S/P/B 3.8 3.5 - 5.1 MMOL/L 05/22/2018 6:11 AM CDT [facility] CHLORIDE S/P/B 109(H) 100 - 108 MMOL/L 05/22/2018 6:11 AM CDT [facility] CO2 24.2 21 - 32 MMOL/L 05/22/2018 6:11 AM CDT [facility] CALCIUM S/P/B 7.8(L) 8.5 - 10.1 MG/DL 05/22/2018 6:11 AM CDT [facility] ANION GAP 12.6 8 - 20 MMOL/L 05/22/2018 6:11 AM CDT [facility] BUN CREATININE RATIO 13.6 6 - 26 05/22/2018 6:11 AM CDT [facility] EGFR NON-AFR. AMER. 57(L) >90 ML/MIN/1.7 3 M2 05/22/2018 6:11 AM CDT [facility] EGFR AFR. AMER. 66(L) >90 ML/MIN/1.7 3 M2 05/22/2018 6:11 AM CDT [facility] Comment: NOTE: eGFR is not calculated for patients <18 years of age. This is an estimated GFR (CKD EPI) and should not be used for calculating drug doses. 05/22/2018 5:13 AM CDT Ember Han MD LABORATORY Final Result [facility] [address] [place] [address], [place] [phone] * (ABNORMAL) CBC W/DIFF AUTOMATED (05/22/2018 5:13 AM CDT) WBC 8.8 4.5 - 11.0 x10'3/uL 05/22/2018 5:48 AM CDT [facility] RBC 4.14(L) 4.70 - 6.10 x10'6/uL 05/22/2018 5:48 AM CDT [facility] HGB 12.4(L) 14.0 - 18.0 G/DL 05/22/2018 5:48 AM CDT [facility] HCT 37.2(L) 43.0 - 54.0 % 05/22/2018 5:48 AM CDT [facility] MCV 89.9 80.0 - 94.0 FL 05/22/2018 5:48 AM CDT [facility] MCH 30.0 27.0 - 31.0 PG 05/22/2018 5:48 AM CDT [facility] MCHC 33.3 32.0 - 36.0 G/DL 05/22/2018 5:48 AM CDT [facility] RDW 13.8 11.5 - 14.5 % 05/22/2018 5:48 AM CDT [facility] PLT 179 130 - 400 x10'3/uL 05/22/2018 5:48 AM CDT [facility] MPV 11.5 9.3 - 12.2 FL 05/22/2018 5:48 AM CDT [facility] DIFFERENTIAL TYPE AUTOMATED DIFFERENTIAL 05/22/2018 5:48 AM CDT [facility] NEUTROPHILS % 73.0 % 05/22/2018 5:48 AM CDT [facility] LYMPHOCYTES % 16.6 % 05/22/2018 5:48 AM CDT [facility] MONOCYTES % 5.4 % 05/22/2018 5:48 AM CDT [facility] EOSINOPHILS 3.7 % 05/22/2018 5:48 AM CDT [facility] BASOPHILS 0.8 % 05/22/2018 5:48 AM CDT [facility] IMMATURE GRANS % 0.5(H) 0 % 05/22/20 18 5:48 AM CDT [facility] ABS. NEUTROPHILS TOTAL 6.40 1.80 - 7.70 x10'3/uL 05/22/2018 5:48 AM CDT [facility] ABS. LYMPHOCYTES 1.45 1.00 - 4.80 x10'3/uL 05/22/2018 5:48 AM CDT [facility] ABS. MONOCYTES 0.47 0.30 - 0.82 x10'3/uL 05/22/2018 5:48 AM CDT [facility] ABS. EOSINOPHILS 0.32 0.04 - 0.54 x10'3/uL 05/22/2018 5:48 AM CDT [facility] ABS. BASOPHILS 0.07 0.01 - 0.08 x10'3/uL 05/22/2018 5:48 AM CDT [facility] ABS. IMMATURE GRANULOCYTES 0.04(H) 0.00 - 0.03 x10'3/uL 05/22/2018 5:48 AM CDT [facility] 05/22/2018 5:13 AM CDT us Ember Han MD LABORATORY Final Result [facility] [address] [place] [address], [place] [phone] * TROPONIN, QUANT (05/22/2018 12:25 AM CDT) TROPONIN I <0.015 <0.045 ng/mL. 05/22/2018 1:04 AM CDT [facility] Comment: HIGH DOSES OF BIOTIN MAY INTERFERE WITH THIS TEST RESULT. CORRELATION TO CLINICAL HISTORY AND PRESENTATION RECOMMENDED. 05/22/2018 12:2 5 AM CDT us Ember Han MD LABORATORY Final Result Performing Organization Address [facility] Co de Phone Number [facility] [address] [place] [address], * (ABNORMAL) POCT glucose (05/21/2018 8:24 PM CDT) GLUCOSE POC 165(H) 70 - 99 mg/dL 05/21/2018 8:26 PM CDT [facility] ORDERS INTERFACE 05/21/2018 8:24 PM CDT Ember Han MD POCT ORDERABLES - DEVICE Fin al Result Performing Organization Address [facility] Co de Phone Number [facility] ORDERS INTERFACE US * TROPONIN, QUANT (05/21/2018 6:43 PM CDT) TROPONIN I <0.015 <0.045 ng/mL. 05/21/2018 7:41 PM CDT [facility] Comment: HIGH DOSES OF BIOTIN MAY INTERFERE WITH THIS TEST RESULT. CORRELATION TO CLINICAL HISTORY AND PRESENTATION RECOMMENDED. 05/21/2018 6:43 PM CDT Ember Han MD LABORATORY Final Result Performing Organization Address [facility] Co de Phone Number [facility] [address] [place] [address], [place] [phone] * (ABNORMAL) POCT glucose (05/21/2018 6:17 PM CDT) GLUCOSE POC 113(H) 70 - 99 mg/dL 05/21/2018 6:19 PM CDT [facility] ORDERS INTERFACE 05/21/2018 6:17 PM CDT Ember Han MD POCT ORDERABLES - DEVICE Fin al Result Performing Organization Address City/[facility]/ZIP Co de Phone Number [facility] ORDERS INTERFACE US * TROPONIN, QUANT (05/21/2018 2:45 PM CDT) TROPONIN I <0.015 <0.045 ng/mL. 05/21/2018 3:20 PM CDT [facility] Comment: HIGH DOSES OF BIOTIN MAY INTERFERE WITH THIS TEST RESULT. CORRELATION TO CLINICAL HISTORY AND PRESENTATION RECOMMENDED. 05/21/2018 2:45 PM CDT us Steve Rockwell MD LABORATORY Final Result [facility] [address] [place] [address], [place] [phone] * XR CHEST PORTABLE (05/21/2018 1:02 PM CDT) Anatomical Region Laterality Modality Chest Radiographic Madelin ging 05/21/2018 1:04 PM CDT Impressions 05/21/2018 1:06 PM CDT Impression: No acute cardiopulmonary disease process. Narrative 05/21/2018 1:06 PM CDT Date: 05/21/2018 12:54 PM Exam: XR CHEST PORTABLE Comparison: No comparisons. Technique: Single view chest per History: Chest pain that radiates up to the left neck at times. Pain started 3-4 days ago. Findings: The cardiac silhouette and pulmonary vascularity are within normal limits. The lungs are clear without consolidation or pleural effusion. There is no pneumothorax. The osseous structures are intact. Procedure Note Yasir Mendes MD - 05/21/2018 Date: 05/21/2018 12:54 PM Exam: XR CHEST PORTABLE Comparison: No comparisons. Technique: Single view chest per History: Chest pain that radiates up to the left neck at times. Pain started 3-4 days ago. Findings: The cardiac silhouette and pulmonary vascularity are within normal limits. The lungs are clear without consolidation or pleural effusion. There is no pneumothorax. The osseous structures are intact. Impression: No acute cardiopulmonary disease process. Steve Rockwell MD GENERAL IMAGING Final Result * TROPONIN, QUANT (05/21/2018 12:34 PM CDT) TROPONIN I <0.015 <0.045 ng/mL. 05/21/2018 1:18 PM CDT [facility] Comment: HIGH DOSES OF BIOTIN MAY INTERFERE WITH THIS TEST RESULT. CORRELATION TO CLINICAL HISTORY AND PRESENTATION RECOMMENDED. 05/21/2018 12:3 4 PM CDT Steve Rockwell MD LABORATORY Final Result [facility] [address] [place] [address], [place] [phone] * (ABNORMAL) COMPREHENSIVE METABOLIC PANEL (05/21/2018 12:34 PM CDT) GLUCOSE 211(H) 70 - 99 MG/DL 05/21/2018 1:18 PM CDT [facility] BUN 27(H) 7 - 18 MG/DL 05/21/2018 1:18 PM CDT [facility] CREATININE S/P/B 1.59(H) 0.7 - 1.3 MG/DL 05/21/2018 1:18 PM CDT [facility] SODIUM S/P/B 139 136 - 145 MMOL/L 05/21/2018 1:18 PM CDT [facility] POTASSIUM S/P/B 3.8 3.5 - 5.1 MMOL/L 05/21/2018 1:18 PM CDT [facility] CHLORIDE S/P/B 105 100 - 108 MMOL/L 05/21/2018 1:18 PM CDT [facility] CO2 26.3 21 - 32 MMOL/L 05/21/2018 1:18 PM T [facility] CALCIUM S/P/B 8.1(L) 8.5 - 10.1 MG/DL 05/21/2018 1:18 PM T [facility] BILIRUBIN TOTAL S/P/B 0.6 0.2 - 1.2 MG/DL 05/21/2018 1:18 PM T [facility] TOTAL PROTEIN S/P/B 7.2 6.4 - 8.2 G/DL 05/21/2018 1:18 PM T [facility] ALBUMIN S/P/B 3.3(L) 3.4 - 5.0 G/DL 05/21/2018 1:18 PM T [facility] AST 18 15 - 37 U/L 05/21/2018 1:18 PM T [facility] ALT 22 16 - 60 U/L 05/21/2018 1:18 PM T [facility] ALKALINE PHOSPHATASE S/P/B 94 50 - 136 U/L 05/21/2018 1:18 PM T [facility] ANION GAP 11.5 8 - 20 MMOL/L 05/21/2018 1:18 PM [facility] BUN CREATININE RATIO 17.0 6 - 26 05/21/2018 1:18 PM T [facility] A/G RATIO 0.8(L) 1.0 - 2.0 RATIO 05/21/2018 1:18 PM T [facility] EGFR NON-AFR. AMER. 52(L) >90 ML/MIN/1.7 3 M2 05/21/2018 1:18 PM [facility] EGFR AFR. AMER. 60(L) >90 ML/MIN/1.7 3 M2 05/21/2018 1:18 PM T [facility] Comment: NOTE: eGFR is not calculated for patients <18 years of age. This is an estimated GFR (CKD EPI) and should not be used for calculating drug doses. 05/21/2018 12:3 4 PM CDT us Steve Rockwell MD LABORATORY Final Result [facility] [address] [place] [address], * (ABNORMAL) CBC W/DIFF AUTOMATED (05/21/2018 12:34 PM CDT) WBC 6.5 4.5 - 11.0 x10'3/uL 05/21/2018 12:59 PM CDT [facility] RBC 4.24(L) 4.70 - 6.10 x10'6/uL 05/21/2018 12:59 PM CDT [facility] HGB 12.5(L) 14.0 - 18.0 G/DL 05/21/2018 12:59 PM CDT [facility] HCT 37.9(L) 43.0 - 54.0 % 05/21/2018 12:59 PM CDT [facility] MCV 89.4 80.0 - 94.0 FL 05/21/2018 12:59 PM CDT [facility] MCH 29.5 27.0 - 31.0 PG 05/21/2018 12:59 PM CDT [facility] MCHC 33.0 32.0 - 36.0 G/DL 05/21/2018 12:59 PM CDT [facility] RDW 13.5 11.5 - 14.5 % 05/21/2018 12:59 PM CDT [facility] PLT 184 130 - 400 x10'3/uL 05/21/2018 12:59 PM CDT [facility] MPV 11.1 9.3 - 12.2 FL 05/21/2018 12:59 PM CDT [facility] DIFFERENTIAL TYPE AUTOMATED DIFFERENTIAL 05/21/2018 12:59 PM CDT [facility] NEUTROPHILS % 60.1 % 05/21/2018 12:59 PM CDT [facility] LYMPHOCYTES % 26.2 % 05/21/2018 12:59 PM CDT [facility] MONOCYTES % 7.2 % 05/21/2018 12:59 PM CDT [facility] EOSINOPHILS 5.1 % 05/21/2018 12:59 PM CDT [facility] BASOPHILS 0.9 % 05/21/2018 12:59 PM CDT [facility] IMMATURE GRANS % 0.5(H) 0 % 05/21/20 18 12:59 PM CDT [facility] ABS. NEUTROPHILS TOTAL 3.91 1.80 - 7.70 x10'3/uL 05/21/2018 12:59 PM CDT [facility] ABS. LYMPHOCYTES 1.70 1.00 - 4.80 x10'3/uL 05/21/2018 12:59 PM CDT [facility] ABS. MONOCYTES 0.47 0.30 - 0.82 x10'3/uL 05/21/2018 12:59 PM CDT [facility] ABS. EOSINOPHILS 0.33 0.04 - 0.54 x10'3/uL 05/21/2018 12:59 PM CDT [facility] ABS. BASOPHILS 0.06 0.01 - 0.08 x10'3/uL 05/21/2018 12:59 PM CDT [facility] ABS. IMMATURE GRANULOCYTES 0.03 0.00 - 0.03 x10'3/uL 05/21/2018 12:59 PM CDT [facility] 05/21/2018 12:3 4 PM CDT us Steve Rockwell MD LABORATORY Final Result [facility] [address] [place] [address], * ECG 12-Lead (05/21/2018 12:29 PM CDT) 05/21/2018 12:2 9 PM CDT Narrative [facility] - 05/22/2018 3:00 PM CDT ?[facility] [address] [facility] [place] ? Test Date: ?2018-05-21 Pat Name: ? RUBIA KOWALSKI ?Department: ?? 41 ? Room: ? A432 Gender: ? Male ? 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 DDB : ?1975 ? Requested By: STEVE ROCKWELL Order Number: [id number] ? Dougie ROGERS: ?? Steve Green ? Measurements Intervals ?[place] ? Rate: ? 74 ? P: ?20 [place]: ? 132 ?QRS: ?-14 QRSD: ? 93 ? T: ?45 QT: ? 376 ? QTc: ?419 ? Interpretive Statements SINUS RHYTHM SEPTAL MYOCARDIAL INFARCTION, OF INDETERMINATE AGE Compared to ECG 09/24/2015 10:48:30 Myocardial infarct finding now present No ischemic changes Steve Rockwell M.D. 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 CRITICAL ALERT ISSUED ON 05-21-2018 12:32:23 us Steve Rockwell MD ECG ORDERABLES Final Result [facility] documented in this encounter Visit Diagnoses Diagnosis Chest pain, unspecified type- Primary Chest pain Chest pain, unspecified documented in this encounter Administered Medications Inactive Administered Medications - up to 3 most recent administrations Medication Order MAR Action Action Date Dose Rate Site acetaminophen (TYLENOL) tablet 325 mg 325 mg, Oral, Every 4 hours PRN, Mild pain (Scale 1 - 3), Starting on Sun05/22/18 at 1333, Until Sun05/22/18 at 1752, Maximum dose of acetaminophen is 4000 mg from all sources in 24 hours., Post-Op acetaminophen (TYLENOL) tablet 650 mg 650 mg, Oral, Every 4 hours PRN, Mild pain (Scale 1 - 3), Starting on Sun05/22/18 at 1032, Until Sun05/22/18 at 1752, Maximum dose of acetaminophen is 4000 mg from all sources in 24 hours., Pre-Op amlodipine (NORVASC) tablet 10 mg 10 mg, Oral, Daily, First dose on Sun05/22/18 at 0900, Until Discontinued Given 05/22/2018 9:06 AM CDT 10 mg aspirin chewable tablet 324 mg 324 mg, Oral, Once, 1 dose, On Sun05/21/18 at 1230, If not given by EMS or taken immediately prior to arrival Given 05/21/2018 1:48 PM CDT 324 mg aspirin chewable tablet 81 mg 81 mg, Oral, Daily, First dose on Sun05/22/18 at 0900, Until Discontinued Given 05/22/2018 9:06 AM CDT 81 mg atorvastatin (LIPITOR) tablet 40 mg 40 mg, Oral, Nightly at bedtime, First dose on Sun05/21/18 at 2100, Until Discontinued Given 05/21/2018 10:55 PM CDT 40 mg atropine injection 0.5 mg 0.5 mg, Intravenous, Once as needed, Other, for heart rate less than 50 bpm and / or SBP less than 90 mmHg, 1 dose, Starting on Sun05/22/18 at 1333, Until Sun05/22/18 at 1752, Post-Op carvedilol (COREG) tablet 25 mg 25 mg, Oral, 2 times daily, First dose on Sun05/21/18 at 2100, Until Discontinued, Take with meal or snack Given 05/21/2018 10:54 PM CDT 25 mg heparin (porcine) injection 5,000 Units 5,000 Units, Subcutaneous, Every 12 hours scheduled (2 times per day), First dose on Sun05/21/18 at 2100, Until Discontinued Given 05/22/2018 9:06 AM CDT 5,000 Units Given 05/21/2018 10:55 PM CDT 5,000 Units qujcisozl-yamewwlw-ipivxsyh one (MAALOX, MYLANTA EXTRA STRENGTH) 3491-1655-390 mg/30mL suspension 10 mL, Oral, Every 4 hours PRN, Indigestion, Heartburn, Starting on Sun05/22/18 at 1333, Until Sun05/22/18 at 1752, Shake Well, Post-Op morphine (PF) injection 4 mg 4 mg, Intravenous, Once, 1 dose, On Sun05/21/18 at 1330 Given 05/21/2018 1:49 PM CDT 4 mg nicotine (NICODERM CQ) 21 MG/24HR patch 21 mg 21 mg (1 patch), Transdermal, Administer over 24 Hours, Every 24 hours, First dose on Sun05/21/18 at 1800, Until Discontinued Patch Applied 05/21/2018 6:22 PM CDT 21 mg Left Arm nitroglycerin (NITRO-BID) 2 % ointment OINT 1 inch 1 inch, Topical, Administer over 6 Hours, Once, 1 dose, On Sun05/21/18 at 1330 Patch Applied 05/21/2018 1:49 PM CDT 1 inch ondansetron (ZOFRAN) injection 4 mg 4 mg, Intravenous, Once, 1 dose, On Sun05/21/18 at 1330, IV push over 2-5 minutes. Given 05/21/2018 1:49 PM CDT 4 mg pantoprazole (PROTONIX) EC tablet 40 mg 40 mg, Oral, Every morning before breakfast, First dose on Sun05/22/18 at 0700, Until Discontinued, Therapeutic interchange for esomeprazole Given 05/22/2018 6:10 AM CDT 40 mg senna-docusate (SENOKOT-S) 8.6-50 MG tablet 2 tablet 2 tablet, Oral, Nightly PRN, Constipation, Starting on Sun05/22/18 at 1333, Until Sun05/22/18 at 1752, Post-Op sodium chloride 0.9% infusion at 40-100 mL/hr, Intravenous, Continuous, Starting on Sun05/22/18 at 1100, Until Sun05/22/18 at 1752, Administer at 100 mL/hour for 3 hours, starting at 0600 AM the day of procedure, and then 40 mL/hour until procedure., Pre-Op New Bag 05/22/2018 12:09 PM CDT 300 mLs 100 mL/hr sodium chloride 0.9% infusion at 100 mL/hr, Intravenous, Continuous, Starting on Sun05/22/18 at 1400, Until Sun05/22/18 at 1752, Stop at 130 pm if eating ok, Post-Op ticagrelor (BRILINTA) tablet 60 mg 60 mg, Oral, 2 times daily, First dose on Sun05/21/18 at 2100, Until Discontinued Given 05/22/2018 9:38 AM CDT 60 mg Given 05/21/2018 11:03 PM CDT 60 mg vilazodone (VIIBRYD) tablet 40 mg 40 mg, Oral, Daily, First dose on Sun05/21/18 at 1715, Until Discontinued, Give with food Given 05/22/2018 9:12 AM CDT 40 mg documented in this encounter Active and Recently Administered Medications Times are shown in CDT. Scheduled Medication Order 05/20/2018 05/21/2018 05/22/2018 amlodipine (NORVASC) tablet 10 mg 10 mg, Oral, Daily, First dose on Sun05/22/18 at 0900, Until Discontinued 905 (Given - Provid er: Kenyetta Self RN) aspirin chewable tablet 324 mg (COMPLETED) 324 mg, Oral, Once, 1 dose, On Sun05/21/18 at 1230, If not given by EMS or taken immediately prior to arrival 1348 (Given - Provider: Elizabeth Lucero RN) aspirin chewable tablet 81 mg 81 mg, Oral, Daily, First dose on Sun05/22/18 at 0900, Until Discontinued 905 (Given - Provid er: Kenyetta Self RN) atorvastatin (LIPITOR) tablet 40 mg 40 mg, Oral, Nightly at bedtime, First dose on Sun05/21/18 at 2100, Until Discontinued 2254 (Given - Provider: Lory Hirsch RN) carvedilol (COREG) tablet 25 mg 25 mg, Oral, 2 times daily, First dose on Sun05/21/18 at 2100, Until Discontinued, Take with meal or snack 2253 (Given - Provider: Lory Hirsch RN) 938 (Not Given - Provider: Kenyetta Self RN - Reason: NPO) heparin (porcine) injection 5,000 Units(Linked Group 1) 5,000 Units, Subcutaneous, Every 12 hours scheduled (2 times per day), First dose on Sun05/21/18 at 2100, Until Discontinued 2254 (Given - Provider: Lory Hirsch RN) 905 (Given - Provider: Keynetta Self RN) insulin lispro (HUMALOG) injection 1 Units 1 Units, Subcutaneous, See admin instructions, Starting on Sun05/21/18 at 1647, Until Sun05/22/18 at 1752, Patient home med -insulin pump. Additional meds in pyxsis pt specific bin morphine (PF) injection 4 mg (COMPLETED) 4 mg, Intravenous, Once, 1 dose, On Sun05/21/18 at 1330 1349 (Given - Provider: Elizabeth Lucero RN) nicotine (NICODERM CQ) 21 MG/24HR patch 21 mg 21 mg (1 patch), Transdermal, Administer over 24 Hours, Every 24 hours, First dose on Sun05/21/18 at 1800, Until Discontinued 182 (Patch Applied - Provider: Kenyetta Self RN) 1552 (Due: Patch Removed - Provider: Automatic Discharge Provider - Comment: Time automatically adjusted from order being discontinued) nitroglycerin (NITRO-BID) 2 % ointment OINT 1 inch (COMPLETED) 1 inch, Topical, Administer over 6 Hours, Once, 1 dose, On Sun05/21/18 at 1330 1349 (Patch Applied - Provider: Elizabeth Lucero, RN)2255 (Patch Removed - Provider: Lory Hirsch, INESSA) ondansetron (ZOFRAN) injection 4 mg (COMPLETED) 4 mg, Intravenous, Once, 1 dose, On Sun05/21/18 at 1330, IV push over 2-5 minutes. 1349 (Given - Provider: Elizabeth Lucero RN) pantoprazole (PROTONIX) EC tablet 40 mg 40 mg, Oral, Every morning before breakfast, First dose on Sun05/22/18 at 0700, Until Discontinued, Therapeutic interchange for esomeprazole 0610 (Given - Provid er: Lory Hirsch RN) ticagrelor (BRILINTA) tablet 60 mg 60 mg, Oral, 2 times daily, First dose on Sun05/21/18 at 2100, Until Discontinued 2303 (Given - Provider: Lory Hirsch RN) 0938 (Given - Provider: Kenyetta Self RN) vilazodone (VIIBRYD) tablet 40 mg 40 mg, Oral, Daily, First dose on Sun05/21/18 at 1715, Until Discontinued, Give with food 1936 (Not Given - Provider: Lory Hirsch RN - Reason: Patient not available) 0912 (Given - Provider: Kenyetta Self RN - Comment: Pts med from home) Continuous Medication Order 05/20/2018 05/21/2018 05/22/2018 sodium chloride 0.9% infusion at 40-100 mL/hr, Intravenous, Continuous, Starting on Sun05/22/18 at 1100, Until Sun05/22/18 at 1752, Administer at 100 mL/hour for 3 hours, starting at 0600 AM the day of procedure, and then 40 mL/hour until procedure., Pre-Op 1209 (New Bag - Prov ider: Kenyetta Self RN) sodium chloride 0.9% infusion at 100 mL/hr, Intravenous, Continuous, Starting on Sun05/22/18 at 1400, Until Sun05/22/18 at 1752, Stop at 130 pm if eating ok, Post-Op 1400 (Canceled Entry - Provider: Automatic Discharge Provider - Comment: Automatically canceled at discontinue of medication order) PRN Medication Order 05/20/2018 05/21/2018 05/22/2018 acetaminophen (TYLENOL) tablet 325 mg 325 mg, Oral, Every 4 hours PRN, Mild pain (Scale 1 - 3), Starting on Sun05/22/18 at 1333, Until Sun05/22/18 at 1752, Maximum dose of acetaminophen is 4000 mg from all sources in 24 hours., Post-Op acetaminophen (TYLENOL) tablet 650 mg 650 mg, Oral, Every 6 hours PRN, Headaches, Starting on Sun05/21/18 at 1654, Until Sun05/22/18 at 1752, Maximum dose of acetaminophen is 4000 mg from all sources in 24 hours. acetaminophen (TYLENOL) tablet 650 mg 650 mg, Oral, Every 4 hours PRN, Mild pain (Scale 1 - 3), Starting on Sun05/22/18 at 1032, Until Sun05/22/18 at 1752, Maximum dose of acetaminophen is 4000 mg from all sources in 24 hours., Pre-Op atropine injection 0.5 mg 0.5 mg, Intravenous, Once as needed, Other, for heart rate less than 50 bpm and / or SBP less than 90 mmHg, 1 dose, Starting on Sun05/22/18 at 1333, Until Sun05/22/18 at 1752, Post-Op gqfsmnfec-oldjdkrc-usrgqbelexk (MAALOX, MYLANTA EXTRA STRENGTH) [id number] mg/30mL suspension 10 mL, Oral, Every 4 hours PRN, Indigestion, Heartburn, Starting on Sun05/22/18 at 1333, Until Sun05/22/18 at 1752, Shake Well, Post-Op nitroglycerin (NITROSTAT) SL tablet 0.4 mg 0.4 mg, Sublingual, Every 5 min PRN, Chest Pain, 3 doses, Starting on Sun05/21/18 at 1654, Until Sun05/22/18 at 1752, Use with caution in older adults (based on 2012 AGS Be[place] Criteria). ondansetron (ZOFRAN) injection 4 mg 4 mg, Intravenous, Every 6 hours PRN, Nausea, Vomiting, Starting on Sun05/21/18 at 1654, Until Sun05/22/18 at 1752, IV push over 2-5 minutes. senna-docusate (SENOKOT-S) 8.6-50 MG tablet 2 tablet 2 tablet, Oral, Nightly PRN, Constipation, Starting on Sun05/22/18 at 1333, Until Sun05/22/18 at 1752, Post-Op zolpidem (AMBIEN) tablet 5 mg 5 mg, Oral, Nightly PRN, Sleep, Starting on Sun05/21/18 at 1654, Until Sun05/22/18 at 1752 Linked Groups Order Group 1: heparin (porcine) injection 5,000 UnitsJump to med 5,000 Units, Subcutaneous, Every 12 hours scheduled (2 times per day), First dose on Sun05/21/18 at 2100, Until Discontinued And Moderate Risk for VTE (COMPLETED) documented in this encounter Care Teams Field Training Manager Relationship Specialty Start Date End Date Dennis Crump MD PCP - General INTERNAL MEDICINE 02/28/17 10/23/23 Joann Marquez, ANP- [address] [facility] [address] [place] [address] [place] Disaster Response Director NURSE PRACTITIONER 02/28/17 documented as of this encounter
--- OUTSIDE RECORDS SUMMARY | 2024-10-26 08:21 | XMS_ITS | Encounter Summary ---
Author Organization [facility] Address [address] [place] [address]. 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 [address] [place] [address] [place]ber[place] Test Analyst NURSE PRACTITIONER 02/28/17 documented as of this encounter
--- OUTSIDE RECORDS SUMMARY | 2024-10-26 08:21 | XMS_ITS | Encounter Summary ---
Author Organization [facility] Address [facility] [place] [address] [place] [address] Care Team Providers Care Director Employment Name Role Phone Dennis Doran MD Primary Care Provider [phone] Joann Marquez-ERICA Unavailable Denisha Hansen Primary Care Provider [phone] Encounter Details Date Type Department Care Team (Late st Contact Info) Description 05/04/2017 Abstract [facility] [address] [place] [address] Joann Marquez ANP-BC [address] 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 AMER. 80 EGFR NON-AFR. AMER. 69 <=90 CALCIUM S/P/B 9.0 GLUCOSE 125 TOTAL PROTEIN S/P/B 6.9 ALBUMIN S/P/B 3.9 3.5 - 5.0 AST 18 ALT 12 ALKALINE PHOSPHATASE S/P/B 88 BILIRUBIN TOTAL S/P/B 0.8 02/25/2016 us Dennis Doran MD LAB-OUTSIDE/ABSTRACTED Final R esult * LIPID PANEL (OUTSIDE LAB) (12/07/2015) CHOLESTEROL 150 TRIGLYCERIDES 308 HDL 34 LDL (CALCULATED) 54 NON HDL CHOLESTEROL 116 CHOL/HDL RATIO 4.4 12/07/2015 us Dennis Doran MD LAB-OUTSIDE/ABSTRACTED Final R esult documented in this encounter Visit Diagnoses Not on filedocumented in this encounter Additional Health Concerns Infection Onset Date Last Indicated Resolved Time COVID-19 Rule Out 01/06/2022 01/06/2022 01/07/2022 2:32 PM CDT documented as of this encounter Care Teams Director Employment Relationship Specialty Start Date End Date Dennis Doran MD PCP - General INTERNAL MEDICINE 02/28/17 10/23/23 Denisha Hansen PA [address] [place] [address] PCP - General PHYSICIAN BASS FISHER 10/24/23 Joann Marquez, ANP-BC [address] [facility] [address] [place] [address] Josephine Screen Maker NURSE PRACTITIONER 02/28/17 documented as of this encounter
--- OUTSIDE RECORDS SUMMARY | 2024-10-26 08:21 | XMS_ITS | Encounter Summary ---
Author Organization [facility] Address [address] [place] [address]. [place], [place] [address] [place] [address] Care Team Providers Care Batch Or Continuous Still Operator Name Role Phone Dennis Doran MD Primary Care Provider [phone] Joann Marquez [facility]- Unavailable [phone] Encounter Details Date Type Department Care Team (Late st Contact Info) Description 10/24/2019 Orders Only [facility] AT [facility] [address] [place] [address] Dieter Arechiga MD [address] [address] Social History Tobacco Use Types Packs/Day [...] 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
--- OUTSIDE RECORDS SUMMARY | 2024-10-26 08:21 | XMS_ITS | Encounter Summary ---
Author Organization [facility] Address [address] [place] [address]. [place], [place] [address] [place] [address] Care Team Providers Care Coke Crane Operator Name Role Phone Unavailable Primary Care Provider Unavailabl e Encounter Details Date Type Department Care Team (Late st Contact Info) Description 09/27/2015 Abstract [facility] [address] [place] [address] , Dionicio Mabry MD Social History Tobacco [...]
--- OUTSIDE RECORDS SUMMARY | 2024-10-26 08:21 | XMS_ITS | Encounter Summary ---
Author Organization [facility] Address [address] [place] [address]. 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 No / Unsure 01/21/2021 12:51 PM CDT documented as of this encounter Plan of Treatment Not on file documented as of this encounter Visit Diagnoses Not on filedocumented in this encounter Care Teams Civil Technician Relationship Specialty Start Date End Date Dennis Doran MD PCP - General INTERNAL MEDICINE 02/28/17 10/23/23 Joann Marquez ANP-BC [address] [facility] [address] [place] [address] [place] Sales And Service Change Leader NURSE PRACTITIONER 02/28/17 documented as of this encounter
--- OUTSIDE RECORDS SUMMARY | 2024-10-26 08:21 | XMS_ITS | Encounter Summary ---
Author Organization [facility] Address [address] [place] [address]. [place], [place] [address] [place] [address] Care Team Providers Care Water Plumber Name Role Phone Dennis Doran MD Primary Care Provider [phone] Joann Marquez [facility] Unavailable [phone] Encounter Details Date Type Department Care Team (Late st Contact Info) Description 09/24/2015 Abstract [facility] Cigar Packer And Grader [address] [place] [address] Nate Sutton MD [address] [facility] [address] [place] [address] Social History Tobacco Use Types Packs/Day Years Used Date Smoking Tobacco: Never Assessed Sex and Gender Information Value Date Recorded Sex Assigned at Not on file Legal Sex Male 1:10 AM CDT Gender Identity Not on file Sexual Orientation Not on file documented as of this encounter Plan of Treatment Not on file documented as of this encounter Procedures Procedure Name Priority Date/Time Associated Diagnosis Comments ECG 12-LEAD Routine 09/24/2015 10:[address] MAGISTRATE documented in this encounter Results * ECG 12 lead (09/24/2015 10:[address] MAGISTRATE) 09/24/2015 10:[address] MAGISTRATE Narrative [facility] RAD - 09/24/2015 11:[address] MAGISTRATE ? [facility] ? [address] [place], [place] ??[address] ? Test Date: ?2015-09-24 Pat Name: ? TANK KOWALSKI ?Department: ?? 1 ? Room: ? Gender: ? M ?Hammer Driver: ?? gs : ?1975 ? Requested By: NATE SUTTON Order Number: [id number] ? Reading MD: ?? Yamel Al-Dadah ? Measurements Intervals ?[place] ? Rate: ? 66 ? P: ?55 DC: ? 145 ?QRS: ?-3 QRSD: ? 97 ? T: ?43 QT: ? 390 ? QTc: ?409 ? Interpretive Statements SINUS RHYTHM T COURT MAGISTRATE Procedure Note , Dionicio Mabry MD - 06/17/2019 [facility] [address] [place] [address] Test Date: 2015-09-24 Pat Name: TANK KOWALSKI Department: 1 Room: Gender: Hammer Driver: : 1975 Requested By: NATE SUTTON Order Number: [id number] Reading MD: Yamel Pop Measurements Intervals [place] Rate: 66 P: 55 DC: 145 QRS: -3 QRSD: 97 T: 43 QT: 390 QTc: 409 Interpretive Statements SINUS RHYTHM T COURT MAGISTRATE us Generic Clotilde Pickard MD ECG ORDERABLES Final R esult [facility] documented in this encounter Visit Diagnoses Diagnosis Atherosclerotic heart disease of [place] coronary artery with other forms of angina pectoris (CMS/HCC) documented in this encounter Care Teams Water Plumber Relationship Specialty Start Date End Date Dennis Doran MD PCP - General INTERNAL MEDICINE 02/28/17 10/23/23 Joann Marquez ANP- [address] [facility] [address] [place] [phone] [place] Chassis Wirer NURSE PRACTITIONER 02/28/17 documented as of this encounter
--- OUTSIDE RECORDS SUMMARY | 2024-10-26 08:21 | XMS_ITS | Encounter Summary ---
Author Organization [facility] Address [address] [place] [address]. [place], [place] [address] [place] [address] Care Team Providers Care Automatic Profile Sander Operator Name Role Phone Dennis Doran MD Primary Care Provider [phone] Joann Marquez [facility]- Unavailable [phone] Encounter Details Date Type Department Care Team (Late st Contact Info) Description 10/23/2019 Orders Only [facility] AT [facility] [address] [place] [address] Dieter Arechiga MD [address] [address] Social History Tobacco Use Types [...] 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 Not on file Not on file Not on file Not on file Not on file Not on file Not on file documented as of this encounter Plan of Treatment Not on file documented as of this encounter Visit Diagnoses Diagnosis Coronary artery disease involving [place] coronary artery of [place] heart without angina pectoris- Primary Essential hypertension Unspecified essential hypertension documented in this encounter Care Teams Automatic Profile Sander Operator Relationship Specialty Start Date End Date Dennis Doran MD PCP - General INTERNAL MEDICINE 02/28/17 10/23/23 Joann Marquez, [facility]- [address] [facility] [address] [place] [address] [place] Homeowner Association Manager NURSE PRACTITIONER 02/28/17 documented as of this encounter
--- OUTSIDE RECORDS SUMMARY | 2024-10-26 08:21 | XMS_ITS | Encounter Summary ---
Author Organization [facility] Address [address] [place] [address]. [place] [address] [place] [address] Care Team Providers Care Marine Electronics Repairer Name Role Phone Dennis Crump MD Primary Care Provider [phone] Joann Marquez-ERICA Unavailable [phone] Reason for Visit * Reason Comments Follow Up Encounter Details Date Type Department Care Team ([facility] st Contact Info) Description 05/04/2017 9:15 AM CDT Office Visit [facility] [address] [place] [address] Joann Marquez, AURELIANO-BC [address] 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 Not on file Not on file Not on file Not on file Not on file Not on file documented as of this encounter Last Filed Vital Signs Vital Sign Reading Time Taken Comments Blood Pressure 132/60 05/04/2017 9:34 AM CDT Pulse 72 05/04/2017 9:33 AM CDT Temperature - - Respiratory Rate 14 05/04/2017 9:33 AM CDT Oxygen Saturation - - Inhaled Oxygen Concentration - - Weight 89.5 kg (197 lb 6.4 oz) 05/04/2017 9:33 A M CDT Height 179.1 cm (5' 10.5 ) 05/04/2017 9:33 AM CD T Body Mass Index 27.92 05/04/2017 9:33 AM CDT documented in this encounter Patient Instructions * Patient Instructions* Carolyne Chew LPN - 05/04/2017 9:15 AM CDT Nicotine Patch 21 mg apply one to skin daily , change daily, for 2 weeks. Then 14mg daily for 1 month , Then 7 mg x 1 month. DO NOT SMOKE WHILE USING THE NICOTINE PATCHES documented in this encounter Progress Notes * AURELIANO Mendenhall-ERICA - 05/04/2017 9:15 AM CDT Reason for Visit: Follow Up History of Present Illness: Mr. Kowalski returns to clinic today for follow up CAD. He describes some very brief atypical chest pains at times. This is not new and no recent escalation of the symptoms. He denies any exertional chest pain or symptoms consistent with angina. He does have occasional wheezing and continues to smoke.He does not feel short of breath. He does describe some dependent edema because down completely overnight. Patient denies orthopnea, PND, presyncope, syncope. Patient denies symptoms of TIA or stroke. He reports that he's had follow-up lab work this spring through your office. Recommendations and Plan: Mr. Kowalski denies anginal complaints. He describes stable activity tolerance. His blood pressure is adequately controlled. He gets some mild dependent edema on amlodipine. This goes down consistently overnight but no other symptoms to suggest congestive heart failure. Patient reports having follow up lipids through your office. He describes tolerating the current lipid lowering therapy without apparent side effects. Recommend titrating therapy ideally to LDL <70 in secondary prevention of atherosclerosis. We discussed the risks of continued smoking potential benefits of complete smoking cessation. He has tried to quit a few times the last year for short periods of time. He is currently smoking about apack and a half of cigarettes today per day. We discussed some of his hurdles in quitting smoking. His home is smoke-free. He said he didn't feel well when he tried Chantix. He is interested in trying nicotine patch and will obtain these [id number]. I did give him instructions on how to startwith 21 mg per day for 2 weeks then reduce to 14 mg per day for 2-4 weeks and 7 mg per day for a month. Counseled him not to smoke while he is wearing the nicotine patch and he voiced understanding. He is encouraged to continue to be active and eat a heart healthy diet. [facility] Will plan for follow-up in a year. Medications: Current Outpatient Prescriptions: ??? amlodipine (NORVASC) 10 MG tablet, Take 10 mg by mouth daily. , Disp: , Rfl: ??? aspirin (ASPIRIN CHILDRENS) 81 MG chewable tablet, Chew 1 tablet by mouth daily., Disp: , Rfl: ??? atorvastatin (LIPITOR) 40 [...] 0; 11-Feb-2014; Active, Disp: , Rfl: ??? lisinopril 20 MG tablet, Take 20 mg by mouth daily. , Disp: , Rfl: ??? nitroGLYCERIN 0.4 MG SL tablet, nitroglycerin tablet, sublingual 0.4 mg; apply 1 tablet under tongue, for chest pain as needed; 25; 3; 11-Feb-2014; Active, Disp: , Rfl: ??? ticagrelor (BRILINTA) 60 MG tablet, Take 1 tablet (60 mg total) by mouth 2 (two) times daily., Disp: 60 tablet, Rfl: 11 ??? vardenafil (LEVITRA) 5 MG tablet, Levitra (vardenafil) tablet 5 mg; take 1 tablet by mouth oncea day as needed-, Disp: 5 tablet, Rfl: 11 ??? vilazodone (VIIBRYD) 40 MG tablet, Viibryd (vilazodone) tablet 40 mg; take 1 tablet by mouth once a day with meal; 0; -Feb-2014; Active, Disp: , Rfl: Allergies Allergen Reactions [...] ??? HEART CATH 02/20/2014 Cardiac Cath ??? TONSILLECTOMY ??? XA CORONARY INTERVENTION 02/24/2014 MARTHA to the proximal LAD Social History Social History ??? Marital status: Spouse name: N/A ??? Number of children: 1 ??? 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 Smoking status: Current Every Day Smoker Packs/day: 1.50 Types: Cigarettes ??? Smokeless tobacco: Never Used ??? Alcohol use Yes Comment: 4-6 weekly ??? Drug use: No ??? Sexual activity: Not Asked Other Topics Concern ??? 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 Special Diet Yes DM diet ??? Caffeine Concern Yes 3-4 Diet Soda daily Social History Narrative Family History Problem Relation Age of Onset ??? Stent Mother 45 stents ??? Heart Attack Mother ??? Valve Disease Sister Valve problem ??? Coronary artery disease Other Family Status Relation Status ??? Mother Alive ??? Sister Alive ??? Other Other Family history is positive for: ??? Father Alive ??? Brother Alive Review of Systems Constitutional: Positive for fatigue. Negative for recent unintentional weight gain and recent unintentional weight loss. HENT: Negative for new or significant hearing loss. Eyes: Negative for blurred vision and double vision. Respiratory: Positive for wheezing. Negative for cough, new or significant shortness of breath and snoring. Cardiovascular: See HPI Positive for leg swelling. Gastrointestinal: Negative for blood in stool and melena. Genitourinary: Negative for dysuria. Musculoskeletal: Positive for joint stiffness/pain. Negative for myalgias. Skin: Negative for rash. Neurological: Positive for dizziness. Negative for tingling/numbness and focal weakness. Endo/Heme/Allergies: Positive for easy bruising/bleeding. Negative for polydipsia. Psychiatric/Behavioral: Negative for depression and new or significant memory loss. Filed Vitals: 05/04/17 0933 05/04/17 0934 BP: 128/62 132/60 Pulse: 72 Resp: 14 Weight: 89.5 kg (197 lb 6.4 oz) Height: 5' 10.5 (1.791 m) Physical Exam Constitutional: He is oriented to person, place, and time. He appears well- developed and well-nourished. No distress. HENT: Head: Normocephalic. Eyes: Conjunctivae are normal. Neck: Neck supple. No JVD present. Carotid bruit is not present. Cardiovascular: Normal rate, regular rhythm, S1 normal, S2 normal and normal heart sounds. PMI is not displaced. Exam reveals no gallop. No murmur heard. Pulses: Carotid pulses are 2+ on the right side, and 2+ on the left side. Radial pulses are 2+ on the right side, and 2+ on the left side. Dorsalis pedis pulses are 2+ on the right side, and 2+ on the left side. Pulmonary/Chest: Effort normal. No respiratory distress. He has wheezes (cleared with intentional cough). Abdominal: Soft. He exhibits no abdominal bruit and no pulsatile midline mass. There is no hepatosplenomegaly. There is no tenderness. There is no guarding. Musculoskeletal: He exhibits no edema. No severe kyphoscoliosis Neurological: He is alert and oriented to person, place, and time. Neuro exam grossly normal. Skin: Skin is warm and dry. No pallor. Insulin pump intact Psychiatric: He has a normal mood and affect. Vitals reviewed. Diagnoses/Impression: 1. Coronary artery disease involving bois forte coronary artery of bois forte heart without angina pectoris 2. Hyperlipidemia, unspecified hyperlipidemia type 3. Essential hypertension PINNACLE Documentation Completed: Coronary Artery Disease PCP: DENNIS CRUMP documented in this encounter Plan of Treatment Not on file documented as of this encounter Visit Diagnoses Diagnosis Coronary artery disease involving bois forte coronary artery of bois forte heart without angina pectoris- Primary Hyperlipidemia, unspecified hyperlipidemia type Essential hypertension Unspecified essential hypertension documented in this encounter Care Teams Marine Electronics Repairer Relationship Specialty Start Date End Date Dennis Crump MD PCP - General INTERNAL MEDICINE 02/28/17 10/23/23 Joann Marquez ANP-BC [address] [phone] [place] Topographical Drafter NURSE PRACTITIONER 02/28/17 documented as of this encounter
--- OUTSIDE RECORDS SUMMARY | 2024-10-26 08:21 | XMS_ITS | Encounter Summary ---
Author Organization [facility] Address [address] [place] [address]. [place] [address] [place] [address] Care Team Providers Care Cobbler Sole Name Role Phone Dennis Doran MD Primary Care Provider [phone] Joann Marquez-ERICA Unavailable Reason for Visit * Reason Onset Date Comments Refill Request 10/08/2019 Brilinta Encounter Details Date Type Department Care Team ([facility] st Contact Info) Description 10/08/2019 Telephone [employer] [facility] [address] [place] [address] Joann Marquez, AURELIANO-BC [address] [facility] [address] [place] [address] Refill Request (Brilinta ) Social History Tobacco Use Types Packs/Day Years [...] 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 HER'S ASSISTANT * Katherine Stauffer - 10/08/2019 11:54 AM CST Patient called requesting a 30 day refill of his Brilinta until he can get into the office for a f/up visit. He states he is almost out. He uses [employer] in [place]. Appt scheduled 10/17/19 at 9:45 am with Joann Marquez NP at [facility]. Patient verbalized understanding. Letter and med list mailed to patient. HER'S ASSISTANT documented in this encounter Plan of Treatment Not on file documented as of this encounter Visit Diagnoses Not on filedocumented in this encounter Care Teams Cobbler Sole Relationship Specialty Start Date End Date Dennis Doran MD PCP - General INTERNAL MEDICINE 02/28/17 10/23/23 Joann Marquez, ANP- [address] [facility] [address] [phone] [place] Strategic Planning Consultant NURSE PRACTITIONER 02/28/17 documented as of this encounter
--- OUTSIDE RECORDS SUMMARY | 2024-10-26 08:21 | XMS_ITS | Encounter Summary ---
Author Organization [facility] Address Count includes the [facility] [place] [address] [place] [address] Care Team Providers Care Mine Car Dispatcher Name Role Phone Dennis Doran MD Primary Care Provider [phone] Joann Marquez-ERICA Unavailable Denisha Hansen Primary Care Provider [phone] Encounter Details Date Type Department Care Team (Late st Contact Info) Description 09/09/2015 Abstract [facility] [address] [place] [address] Joann Marquez ANP-BC [address] 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 Not on file Not on file documented as of this encounter Plan of Treatment Not on file documented as of this encounter Visit Diagnoses Not on filedocumented in this encounter Additional Health Concerns Infection Onset Date Last Indicated Resolved Time COVID-19 Rule Out 01/06/2022 01/06/2022 01/07/2022 2:32 PM CDT documented as of this encounter Care Teams Mine Car Dispatcher Relationship Specialty Start Date End Date Dennis Doran MD PCP - General INTERNAL MEDICINE 02/28/17 10/23/23 Denisha Hansen PA [address] [place] [address] PCP - General PHYSICIAN CHARGE ACCOUNT AUTHORIZER 10/24/23 Joann Marquez, ANP- [address] [facility] [address] [place] [address] [place] Customer Success Representative NURSE PRACTITIONER 02/28/17 documented as of this encounter
--- OUTSIDE RECORDS SUMMARY | 2024-10-26 08:22 | XMS_ITS | Encounter Summary ---
Author Organization [facility] Address [facility]. [place], [place] [address] [place] [address] Care Team Providers Care Data Miner Name Role Phone Dennis Doran MD Primary Care Provider [phone] Joann Marquez-ERICA Unavailable [phone] Encounter Details Date Type Department Care Team (Late st Contact Info) Description 10/04/2004 Abstract [facility] CONVERSION [address] [place] [address] Bertrand Mckeon MD [address] [place] [id number] Social History Tobacco Use Types Packs/Day Years [...] on filedocumented in this encounter Care Teams Data Miner Relationship Specialty Start Date End Date Dennis Doran MD PCP - General INTERNAL MEDICINE 02/28/17 10/23/23 Joann Marquez ANP-BC [address] [facility] [address] [place] [address] [place] Pepper Picker NURSE PRACTITIONER 02/28/17 documented as of this encounter
--- OUTSIDE RECORDS SUMMARY | 2024-10-26 08:22 | XMS_ITS | Encounter Summary ---
Author Organization [facility] Address [address] [place] [address]. [place], [place] [address] [place] [address] Care Team Providers Care Digital Developer Name Role Phone Dennis Doran MD Primary Care Provider [phone] Joann Marquez-BC Unavailable [phone] Encounter Details Date Type Department Care Team (Late st Contact Info) Description 10/28/2008 Abstract [facility] CONVERSION [address] [place] [address] Elsi Kerns, DO [address] [place] [address] Social History Tobacco Use Types Packs/Day Years [...] on filedocumented in this encounter Care Teams Digital Developer Relationship Specialty Start Date End Date Dennis Doran MD PCP - General INTERNAL MEDICINE 02/28/17 10/23/23 Joann Marquez ANP-BC [address] [facility] [address] [place] [address] [place] Manager Body NURSE PRACTITIONER 02/28/17 documented as of this encounter
--- OUTSIDE RECORDS SUMMARY | 2024-10-26 08:22 | XMS_ITS | Encounter Summary ---
Author Organization [facility] Address [address] [place] [address]. [place] [address] [place] [address] Care Team Providers Care Basketball Coach Name Role Phone Dennis Doran MD Primary Care Provider [phone] Joann Marquez ANP-BC Unavailable [phone] Encounter Details Date Type Department Care Team (Late st Contact Info) Description 04/08/2013 Abstract [facility] Diagnostic Imaging [address] [place] [address] Saji Dee MD [facility] [address] [address] Social History Tobacco Use Types Packs/Day Years [...] on filedocumented in this encounter Care Teams Basketball Coach Relationship Specialty Start Date End Date Dennis Doran MD PCP - General INTERNAL MEDICINE 02/28/17 10/23/23 Joann Marquez, ANP-BC [address] [facility] [address] [place] [address] [place] Executor Of Estate NURSE PRACTITIONER 02/28/17 documented as of this encounter
--- OUTSIDE RECORDS SUMMARY | 2024-10-26 08:22 | XMS_ITS | Encounter Summary ---
Author Organization [facility] Address [address] [place] [address]. [place], [place] [address] [place] [address] Care Team Providers Care Custom Garment Designer Name Role Phone Unavailable Primary Care Provider Unavailabl e Encounter Details Date Type Department Care Team (Late st Contact Info) Description 02/11/2014 [facility] [place] [address] [place] [address] , Dionicio Mabry MD Social History Tobacco [...]
--- OUTSIDE RECORDS SUMMARY | 2024-10-26 08:22 | XMS_ITS | Encounter Summary ---
Author Organization [facility] Address [facility]. [place], [place] [address] [place] [address] Care Team Providers Care Research Anthropologist Name Role Phone Dennis Doran MD Primary Care Provider [phone] Joann Marquez-ERICA Unavailable [phone] Encounter Details Date Type Department Care Team (Late st Contact Info) Description 02/10/2004 Abstract [facility] CONVERSION [address] [place] [address] Bertrand Mckeon MD [address] [place] [id number] Social History Tobacco Use Types Packs/Day Years [...] on filedocumented in this encounter Care Teams Research Anthropologist Relationship Specialty Start Date End Date Dennis Doran MD PCP - General INTERNAL MEDICINE 02/28/17 10/23/23 Joann Marquez ANP-BC [address] [place] [address] [address] [place] [address] [place] Concrete Block Mason NURSE PRACTITIONER 02/28/17 documented as of this encounter
--- OUTSIDE RECORDS SUMMARY | 2024-10-26 08:22 | XMS_ITS | Encounter Summary ---
Author Organization [facility] Address [address] [place] [address]. [place], [place] [address] [place] [address] Care Team Providers Care Pc Maintenance Technician Name Role Phone Dennis Doran MD Primary Care Provider [phone] Joann Marquez-BC Unavailable [phone] Encounter Details Date Type Department Care Team (Late st Contact Info) Description 03/02/2010 Abstract [facility] CONVERSION [address] [place] [address] Denisha Hansen PA [address] [place] [address] Social History Tobacco Use Types Packs/Day Years [...] on filedocumented in this encounter Care Teams Pc Maintenance Technician Relationship Specialty Start Date End Date Dennis Doran MD PCP - General INTERNAL MEDICINE 02/28/17 10/23/23 Joann Marquez, ANP-BC [address] [facility] [address] [place] [address] [place] Cutting And Boning Supervisor NURSE PRACTITIONER 02/28/17 documented as of this encounter
--- OUTSIDE RECORDS SUMMARY | 2024-10-26 08:22 | XMS_ITS | Encounter Summary ---
Author Organization [facility] Address [facility] [place] [address] [place] [address] Care Team Providers Care Milk Hauler Name Role Phone Dennis Doran MD Primary Care Provider [phone] Joann Marquez-BC Unavailable [phone] Encounter Details Date Type Department Care Team (Late st Contact Info) Description 03/22/2013 Abstract [facility] Diagnostic Imaging [address] [place] [address] Ho Bangura, SENIOR IT ASSISTANT [address], [place] [address] Social History Tobacco Use Types Packs/Day Years Used Date Smoking Tobacco: Never Assessed Sex and Gender Information Value Date Recorded Sex Assigned at Not on file Legal Sex Male 1:10 AM CDT Gender Identity Not on file Sexual Orientation Not on file documented as of this encounter Plan of Treatment Not on file documented as of this encounter Visit Diagnoses Diagnosis Abdominal pain of other specified site documented in this encounter Care Teams Milk Hauler Relationship Specialty Start Date End Date Dennis Doran MD PCP - General INTERNAL MEDICINE 02/28/17 10/23/23 Joann Marquez ANP-BC [address] [facility] [address] [place] [address] [place] Glue Reel Operator NURSE PRACTITIONER 02/28/17 documented as of this encounter
--- OUTSIDE RECORDS SUMMARY | 2024-10-26 08:22 | XMS_ITS | Encounter Summary ---
Author Organization [facility] Address [address] [place] [address]. [place], [place] [address] [place] [address] Care Team Providers Care Aoc Plans Intelligence Officer Chief Name Role Phone Dennis Doran MD Primary Care Provider [phone] Joann Marquez-BC Unavailable Encounter Details Date Type Department Care Team (Late st Contact Info) Description 03/23/2009 Abstract [facility] CONVERSION [address] [place], [place] [id number] Saleem Rosas MD Social History Tobacco Use Types Packs/Day Years Used Date Smoking Tobacco: Never Assessed Sex and Gender Information Value Date Recorded Sex Assigned at Not on file Legal Sex Male 1:10 AM CDT Gender Identity Not on file Sexual Orientation Not on file COVID-19 Exposure Response Date Recorded In the last month, have you been in contact with someone who was confirmed or suspected to have Coronavirus / COVID-19? No / Unsure 01/21/2021 12:51 PM CDT documented as of this encounter Plan of Treatment Not on file documented as of this encounter Visit Diagnoses Not on filedocumented in this encounter Care Teams Aoc Plans Intelligence Officer Chief Relationship Specialty Start Date End Date Dennis Doran MD PCP - General INTERNAL MEDICINE 02/28/17 10/23/23 Joann Marquez, ANP-BC [address] [facility] [address] [place] [address] Seaview Track Layer NURSE PRACTITIONER 02/28/17 documented as of this encounter
--- OUTSIDE RECORDS SUMMARY | 2024-10-26 08:22 | XMS_ITS | Encounter Summary ---
Author Organization [facility] Address Replaced by [facility] [place] [address] [place] [address] [place] [address] Care Team Providers Care Hook Tender Name Role Phone Dennis Doran MD Primary Care Provider [phone] Joann Marquez-BC Unavailable [phone] Encounter Details Date Type Department Care Team (Late st Contact Info) Description 10/03/2007 Abstract [facility] CONVERSION [address] [place] [address] Elsi Kerns, DO [address] [place] [address] Social History Tobacco Use Types Packs/Day [...] on filedocumented in this encounter Care Teams Hook Tender Relationship Specialty Start Date End Date Dennis Doran MD PCP - General INTERNAL MEDICINE 02/28/17 10/23/23 Joann Marquez ANP-BC [address] [facility] [address] [place] [address] [place] Editor City NURSE PRACTITIONER 02/28/17 documented as of this encounter
--- OUTSIDE RECORDS SUMMARY | 2024-10-26 08:22 | XMS_ITS | Encounter Summary ---
Author Organization [facility] Address [facility] [place] [address] [place] [address] Care Team Providers Care Reconciliation Coordinator Name Role Phone Dennis Doran MD Primary Care Provider [phone] Joann Marquez Unavailable [phone] Encounter Details Date Type Department Care Team (Late st Contact Info) Description 01/27/2014 Abstract [facility] Cardiopulmonary Services [address] [place] [address] Dennis Doran MD [address] [place] [address] Social History Tobacco Use Types Packs/Day Years Used Date Smoking Tobacco: Never Assessed Sex and Gender Information Value Date Recorded Sex Assigned at Not on file Legal Sex Male 1:10 AM CDT Gender Identity Not on file Sexual Orientation Not on file documented as of this encounter Plan of Treatment Not on file documented as of this encounter Visit Diagnoses Diagnosis Shortness of breath documented in this encounter Care Teams Reconciliation Coordinator Relationship Specialty Start Date End Date Dennis Droan MD PCP - General INTERNAL MEDICINE 02/28/17 10/23/23 Joann Marquez ANP-BC [address] [facility] [address] [place] [phone] [place] Ice Cream Man NURSE PRACTITIONER 02/28/17 documented as of this encounter
--- OUTSIDE RECORDS SUMMARY | 2024-10-26 08:22 | XMS_ITS | Encounter Summary ---
Author Organization [facility] Address [facility]6 [facility] [place] [address] [place] [address] Care Team Providers Care Rn First Assistant Name Role Phone Dennis Doran MD Primary Care Provider [phone] Joann Marquez Unavailable [phone] Encounter Details Date Type Department Care Team (Late st Contact Info) Description 08/18/2012 Abstract [facility] Emergency Room [address] [place] [address] Barry Diez MD [address] [address] Social History Tobacco Use Types Packs/Day Years Used Date Smoking Tobacco: Never Assessed Sex and Gender Information Value Date Recorded Sex Assigned at Not on file Legal Sex Male 1:10 AM CDT Gender Identity Not on file Sexual Orientation Not on file documented as of this encounter Plan of Treatment Not on file documented as of this encounter Visit Diagnoses Diagnosis Dizziness and giddiness documented in this encounter Care Teams Rn First Assistant Relationship Specialty Start Date End Date Dennis Doran MD PCP - General INTERNAL MEDICINE 02/28/17 10/23/23 Joann Marquez ANP-BC [address] [facility] [address] [place] [address] [place] Braille Proofreader NURSE PRACTITIONER 02/28/17 documented as of this encounter
--- OUTSIDE RECORDS SUMMARY | 2024-10-26 08:22 | XMS_ITS | Encounter Summary ---
Author Organization [facility] Address [address] [place] [address]. [place], [place] [address] [place] [address] Care Team Providers Care Gaming Pit Boss Name Role Phone Unavailable Primary Care Provider Unavailabl e Encounter Details Date Type Department Care Team (Late st Contact Info) Description 09/15/2014 [facility] [address] [place] [address] , Dionicio Mabry MD Social History Tobacco [...]
--- OUTSIDE RECORDS SUMMARY | 2024-10-26 08:22 | XMS_ITS | Encounter Summary ---
Author Organization [facility] Address [address] [place] [address]. [place], [place] [address] [place] [address] Care Team Providers Care Fiscal Economist Name Role Phone Unavailable Primary Care Provider Unavailabl e Encounter Details Date Type Department Care Team (Late st Contact Info) Description 02/13/2014 [facility] [address] [place] [address] , Dionicio Mabry MD Social History Tobacco [...]
--- OUTSIDE RECORDS SUMMARY | 2024-10-26 08:22 | XMS_ITS | Encounter Summary ---
Author Organization [facility] Address [address] [place] [address]. [place], [place] [address] [place] [address] Care Team Providers Care Hearing Aid Assistant Name Role Phone Unavailable Primary Care Provider Unavailabl e Encounter Details Date Type Department Care Team (Late st Contact Info) Description 02/20/2014 Abstract [facility] [address] [place] [address] , Generic ConversionMD Social History Tobacco Use Types Packs/Day Years [...] Procedure Name Priority Date/Time Associated Diagnosis Comments EXTERNAL EJECTION FRACTION Routine 02/20/2014 12:00 AM CDT documented in this encounter Results * EXTERNAL EJECTION FRACTION (02/20/2014 12:00 AM CDT) EJECTION FRACTION [facility] Comment:LVEF Status: LV Gram - 60%, LV Normal Systolic Function, LV WallMotion: Normal LAD (Proximal), Diseased 70% LesionRCA (Mid), Diseased 50% Lesion Anatomical Region Laterality Modality Other 02/20/2014 02/20/2014 Narrative 02/20/2014 12:00 AM CDT Cardiac Cath, Dieter Arechiga us Generic Conversion Md ROGERS OTHER Final R esult documented in this encounter Visit Diagnoses Not on filedocumented in this encounter
--- OUTSIDE RECORDS SUMMARY | 2024-10-26 08:22 | XMS_ITS | Encounter Summary ---
Author Organization [facility] Address [address] [place] [address]. [place], [place] [address] [place] [address] Care Team Providers Care Pattern Maker Name Role Phone Dennis Doran MD Primary Care Provider [phone] Joann Marquez-BC Unavailable [phone] Encounter Details Date Type Department Care Team (Late st Contact Info) Description 06/24/2010 Abstract [facility] CONVERSION [address] [place] [address] Dennis Doran MD [facility] [place] [address] Social History Tobacco Use Types Packs/Day Years [...] on filedocumented in this encounter Care Teams Pattern Maker Relationship Specialty Start Date End Date Dennis Doran MD PCP - General INTERNAL MEDICINE 02/28/17 10/23/23 Joann Marquez ANP-BC [address] [facility] [address]P57 [place] [address] [place] Computer Aided Drafter NURSE PRACTITIONER 02/28/17 documented as of this encounter
--- OUTSIDE RECORDS SUMMARY | 2024-10-26 08:22 | XMS_ITS | Encounter Summary ---
Author Organization [facility] Address [facility]6 [facility]. [place], [place] [address] [place] [address] Care Team Providers Care Transmission Design Engineer Name Role Phone Dennis Doran MD Primary Care Provider [phone] Joann Marquez-ERICA Unavailable [phone] Encounter Details Date Type Department Care Team (Late st Contact Info) Description 06/09/2005 Abstract [facility] CONVERSION [address] [place] [address] Bertrand Mckeon MD [address] [place] [id number] Social History Tobacco Use Types Packs/Day Years [...] on filedocumented in this encounter Care Teams Transmission Design Engineer Relationship Specialty Start Date End Date Dennis Doran MD PCP - General INTERNAL MEDICINE 02/28/17 10/23/23 Joann Marquez ANP-BC [address] [facility] [address] [place] [address] [place] Project Asst NURSE PRACTITIONER 02/28/17 documented as of this encounter
--- OUTSIDE RECORDS SUMMARY | 2024-10-26 08:22 | XMS_ITS | Encounter Summary ---
Author Organization [facility] Address [address] [place] [address]. [place], [place] [address] [place] [address] Care Team Providers Care Artificial Stone Applicator Name Role Phone Unavailable Primary Care Provider Unavailabl e Encounter Details Date Type Department Care Team (Late st Contact Info) Description 02/24/2014 Abstract [facility] [address] [place] [address] , Dionicio Mabry MD Social History Tobacco [...]
--- OUTSIDE RECORDS SUMMARY | 2024-10-26 08:22 | XMS_ITS | Encounter Summary ---
Author Organization [facility] Address [facility]6 [facility]. [place], [place] [address] [place] [address] Care Team Providers Care Vp Corporate Partnerships Name Role Phone Dennis Doran MD Primary Care Provider [phone] Joann Marquez-BC Unavailable [phone] Encounter Details Date Type Department Care Team (Late st Contact Info) Description 09/29/2008 Abstract [facility] CONVERSION [address] [place] [address] Elsi Kerns, DO [address] [place] [address] Social History Tobacco Use Types Packs/Day [...] on filedocumented in this encounter Care Teams Vp Corporate Partnerships Relationship Specialty Start Date End Date Dennis Doran MD PCP - General INTERNAL MEDICINE 02/28/17 10/23/23 Joann Marquez ANP-BC [address] [facility] [address] [place] [address] Centre End Touching Machine Operator NURSE PRACTITIONER 02/28/17 documented as of this encounter
--- OUTSIDE RECORDS SUMMARY | 2024-10-26 08:22 | XMS_ITS | Encounter Summary ---
Author Organization [facility] Address [address] [place] [address]. [place], [place] [address] [place] [address] Care Team Providers Care Dispensing Optician Name Role Phone Dennis Doran MD Primary Care Provider [phone] Joann Marquez BANNER-BC Unavailable [phone] Encounter Details Date Type Department Care Team (Late st Contact Info) Description 02/24/2014 Abstract [facility] Parcel Wrapper [address] [place] [address] Nate Sutton MD [address] [facility] [address] [place] [address] Social History Tobacco Use Types Packs/Day [...] Date/Time Associated Diagnosis Comments ECG 12-LEAD Routine 02/24/2014 9:11 AM CDT documented in this encounter Results * ECG 12 lead (02/24/2014 9:11 AM CDT) 02/24/2014 9:11 AM CDT Narrative [facility] - 02/24/2014 11:35 AM CDT ? [facility] ? [address] [place], [place] ??[address] ? Test Date: ?2014-02-24 Pat Name: ? TANK KOWALSKI ?Department: ?? 1 ? Room: ? Gender: ? M ?Bus Driver: ?? : ?1975 ? Requested By: NATE SUTTON Order Number: [id number] ? Reading MD: ?? [facility] ? Measurements Intervals ?[place] ? Rate: ? 69 ? P: ?59 MD: ? 128 ?QRS: ?-31 QRSD: ? 92 ? T: ?8 QT: ? 389 ? QTc: ?418 ? 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: : 1975 Requested By: NATE SUTTON Order Number: [id number] Reading MD: Patricio Angeles Measurements Intervals [place] Rate: 69 P: 59 MD: 128 QRS: -31 QRSD: 92 T: 8 QT: 389 QTc: 418 Interpretive Statements SINUS RHYTHM MARKED LEFT AXIS DEVIATION Cannot rule prior anterior infarct us Generic Clotilde Pickard MD ECG ORDERABLES Final R esult Performing Organization Address City/State/[facility] Co de Phone Number [facility] documented in this encounter Visit Diagnoses Diagnosis Coronary atherosclerosis of jena coronary artery documented in this encounter Care Teams Dispensing Optician Relationship Specialty Start Date End Date Dennis Doran MD PCP - General INTERNAL MEDICINE 02/28/17 10/23/23 Joann Marquez ANP- [address] [facility] [address] [phone] [place] Firer Electric Locomotive NURSE PRACTITIONER 02/28/17 documented as of this encounter
--- OUTSIDE RECORDS SUMMARY | 2024-10-26 08:22 | XMS_ITS | Encounter Summary ---
Author Organization [facility] Address [facility]6 [facility] [place] [address] [place] [address] Care Team Providers Care Brand Ambassador Promotional Model Name Role Phone Dennis Doran MD Primary Care Provider [phone] Joann Marquez-ERICA Unavailable [phone] Encounter Details Date Type Department Care Team (Late st Contact Info) Description 05/06/2006 Abstract [facility] Emergency Room [address] [place] [address] Mateusz Patterson MD [address] [place] [address] Social History Tobacco Use Types Packs/Day Years [...] on filedocumented in this encounter Care Teams Brand Ambassador Promotional Model Relationship Specialty Start Date End Date Dennis Doran MD PCP - General INTERNAL MEDICINE 02/28/17 10/23/23 Joann Marquez ANP-BC [address] [facility] [address] [place] [address] [place] Clinical Pharmacologist NURSE PRACTITIONER 02/28/17 documented as of this encounter
--- OUTSIDE RECORDS SUMMARY | 2024-10-26 08:22 | XMS_ITS | Encounter Summary ---
Author Organization [facility] Address [address] [place] [address]. [place], [place] [address] [place] [address] Care Team Providers Care Outside Collector Name Role Phone Dennis Doran MD Primary Care Provider [phone] Joann Marquez-BC Unavailable [phone] Encounter Details Date Type Department Care Team (Late st Contact Info) Description 03/23/2009 Abstract [facility] [address] [place] [address] Saleem Rosas MD Social History Tobacco Use [...] on filedocumented in this encounter Care Teams Outside Collector Relationship Specialty Start Date End Date Dennis Doran MD PCP - General INTERNAL MEDICINE 02/28/17 10/23/23 Joann Marquez ANP-BC [address] [place] [address] 4P[address] [place] [address] [place] Welder/Fabricator NURSE PRACTITIONER 02/28/17 documented as of this encounter
--- OUTSIDE RECORDS SUMMARY | 2024-10-26 08:22 | XMS_ITS | Encounter Summary ---
Author Organization [facility] Address [address] [place] [address]. [place], [place] [address] [place] [address] Care Team Providers Care Washhouse Worker Name Role Phone Unavailable Primary Care Provider Unavailabl e Encounter Details Date Type Department Care Team (Late st Contact Info) Description 09/15/2014 Abstract [facility] [address] [place] [address] , Dionicio Mabry MD Social History Tobacco [...]
--- OUTSIDE RECORDS SUMMARY | 2024-10-26 08:22 | XMS_ITS | Encounter Summary ---
Author Organization [facility] Address [facility] [place] [address] [place] [address] Care Team Providers Care Spare Hand Carding Name Role Phone Dennis Doran MD Primary Care Provider [phone] Joann Marquez ANP-BC Unavailable [phone] Encounter Details Date Type Department Care Team (Late st Contact Info) Description 12/31/2007 Abstract [facility] CONVERSION [address] [place] [address] Mike Toledo MD [address] [place] [address] Social History Tobacco Use Types Packs/Day Years [...] on filedocumented in this encounter Care Teams Spare Hand Carding Relationship Specialty Start Date End Date Dennis Doran MD PCP - General INTERNAL MEDICINE 02/28/17 10/23/23 Joann Marquez, ANP-BC [address] [facility] [address] [place] [address] [place] Sheriff Officer NURSE PRACTITIONER 02/28/17 documented as of this encounter
--- OUTSIDE RECORDS SUMMARY | 2024-10-26 08:22 | XMS_ITS | Encounter Summary ---
Author Organization [facility] Address [facility]6 [facility] [place], [place] [address] [place] [address] Care Team Providers Care Interactive Multimedia Designer Name Role Phone Dennis Doran MD Primary Care Provider [phone] Joann Marquez-ERICA Unavailable [phone] Encounter Details Date Type Department Care Team (Late st Contact Info) Description 06/16/2005 Abstract [facility] CONVERSION [address] [place] [address] Bertrand Mckeon MD [address] [place] [address] [id number] Social History Tobacco Use Types Packs/Day Years [...] on filedocumented in this encounter Care Teams Interactive Multimedia Designer Relationship Specialty Start Date End Date Dennis Doran MD PCP - General INTERNAL MEDICINE 02/28/17 10/23/23 Joann Marquez ANP-BC [address] [facility] [address] [place] [address] [place] Assistant Chief Nursing Officer NURSE PRACTITIONER 02/28/17 documented as of this encounter
--- OUTSIDE RECORDS SUMMARY | 2024-10-26 08:22 | XMS_ITS | Encounter Summary ---
Author Organization [facility] Address [address] [place] [address]. [place], [place] [address] [address] Care Team Providers Care Shellfish Manager Name Role Phone Dennis Doran MD Primary Care Provider [phone] Joann Marquez-BC Unavailable [phone] Encounter Details Date Type Department Care Team (Late st Contact Info) Description 06/04/[address] [facility] CONVERSION [address] [place] [address] Denisha Hansen PA [address] [place] [address] Social History Tobacco Use Types Packs/Day Years [...] on filedocumented in this encounter Care Teams Shellfish Manager Relationship Specialty Start Date End Date Dennis Doran MD PCP - General INTERNAL MEDICINE 02/28/17 10/23/23 Joann Marquez, ANP-BC [address] [facility] [address] [place] [address] [place] Supervisor Pipe Finishing NURSE PRACTITIONER 02/28/17 documented as of this encounter
--- OUTSIDE RECORDS SUMMARY | 2024-10-26 08:22 | XMS_ITS | Encounter Summary ---
Author Organization [facility] Address [address] [place] [address]. [place], [place] [address] [place] [address] Care Team Providers Care Leisure Travel Agent Name Role Phone Unavailable Primary Care Provider Unavailabl e Encounter Details Date Type Department Care Team (Late st Contact Info) Description 02/13/2014 Abstract [facility] [address] [place] [address] , Dionicio Mabry MD Social History Tobacco [...]
--- OUTSIDE RECORDS SUMMARY | 2024-10-26 08:22 | XMS_ITS | Encounter Summary ---
Author Organization [facility] Address [address] [place] [address]. [place], [place] [address] [place] [address] Care Team Providers Care Yard Foreman Name Role Phone Dennis Doran MD Primary Care Provider [phone] Joann Marquez-BC Unavailable [phone] Encounter Details Date Type Department Care Team (Late st Contact Info) Description 06/03/2010 Abstract [facility] CONVERSION [address] [place] [address] Denisha Hansen PA [address] [place] [address] Social History Tobacco Use Types Packs/Day Years [...] on filedocumented in this encounter Care Teams Yard Foreman Relationship Specialty Start Date End Date Dennis Doran MD PCP - General INTERNAL MEDICINE 02/28/17 10/23/23 Joann Marquez, ANP-BC [address] [facility] [address] [place] [address] [place] [facility] Director NURSE PRACTITIONER 02/28/17 documented as of this encounter
--- OUTSIDE RECORDS SUMMARY | 2024-10-26 08:22 | XMS_ITS | Encounter Summary ---
Author Organization [facility] Address [address] [place] [address]. [place], [place] [address] [place] [address] Care Team Providers Care Anchor Operator Name Role Phone Dennis Doran MD Primary Care Provider [phone] Joann Marquez-BC Unavailable [phone] Encounter Details Date Type Department Care Team (Late st Contact Info) Description 06/22/2009 Abstract [facility] CONVERSION [address] [place] [address] Elsi Kerns, DO [address] [place] [address] Social History Tobacco Use Types Packs/Day [...] on filedocumented in this encounter Care Teams Anchor Operator Relationship Specialty Start Date End Date Dennis Doran MD PCP - General INTERNAL MEDICINE 02/28/17 10/23/23 Joann Marquez ANP-BC [address] [facility] [address] [place] [address] [place] Household Personal Assistant NURSE PRACTITIONER 02/28/17 documented as of this encounter
--- OUTSIDE RECORDS SUMMARY | 2024-10-26 08:22 | XMS_ITS | Encounter Summary ---
Author Organization [facility] Address [address] [place] [address]. [place], [place] [address] [place] [address] Care Team Providers Care Appeals Representative Name Role Phone Unavailable Primary Care Provider Unavailabl e Encounter Details Date Type Department Care Team (Late st Contact Info) Description 01/28/2014 [facility] [address] [place] [address] , Dionicio Mabry MD Social History Tobacco [...]
--- OUTSIDE RECORDS SUMMARY | 2024-10-26 08:22 | XMS_ITS | Encounter Summary ---
Author Organization [facility] Address [address] [place] [address]. [place], [place] [address] [place] [address] Care Team Providers Care Social Services Designee Name Role Phone Unavailable Primary Care Provider Unavailabl e Encounter Details Date Type Department Care Team (Late st Contact Info) Description 02/16/2014 [facility] [address] [place] [address] , Dionicio Mabry MD Social History Tobacco [...]
--- OUTSIDE RECORDS SUMMARY | 2024-10-26 08:22 | XMS_ITS | Encounter Summary ---
Author Organization [facility] Address [address] [place] [address]. [place], [place] [address] [place] [address] Care Team Providers Care Change Management Facilitator Name Role Phone Dennis Doran MD Primary Care Provider [phone] Joann Marquez [facility]-BC Unavailable [phone] Encounter Details Date Type Department Care Team (Late st Contact Info) Description 02/20/2014 Abstract [facility] CONVERSION [address] [place] [address] Nate Sutton MD 602 [facility] [address] [place] [address] Social History Tobacco Use Types Packs/Day [...] Date/Time Associated Diagnosis Comments ECG 12-LEAD Routine 02/20/2014 10:04 AM CDT documented in this encounter Results * ECG 12 lead (02/20/2014 10:04 AM CDT) 02/20/2014 10:0 4 AM CDT Narrative [facility] - 02/20/2014 1:59 PM CDT ? [facility] ? [address] [place], [place] ??[address] ? Test Date: ?2014-02-20 Pat Name: ? TANK KOWALSKI ?Department: ?? 1 ? Room: ? Gender: ? M ?Auditor/Quality: ?? : ?1975 ? Requested By: NATE SUTTON Order Number: [id number] ? Reading MD: ?? Kal Milton ? Measurements Intervals ?[place] ? Rate: ? 73 ? P: ?52 MT: ? 139 ?QRS: ?-29 QRSD: ? 95 ? T: ?42 QT: ? 389 ? QTc: ?430 ? Interpretive Statements SINUS RHYTHM MODERATE LEFT AXIS DEVIATION [QRS AXIS < -20] Procedure Note , Generic MD Clotilde - 06/18/2019 [facility] [address] [place] [address] Test Date: 2014-02-20 Pat Name: TANK KOWALSKI Department: 1 Room: Gender: Auditor/Quality: : 1975 Requested By: NATE SUTTON Order Number: [id number] Reading MD: Kal Milton Measurements Intervals [place] Rate: 73 P: 52 MT: 139 QRS: -29 QRSD: 95 T: 42 QT: 389 QTc: 430 Interpretive Statements SINUS RHYTHM MODERATE LEFT AXIS DEVIATION [QRS AXIS < -20] us Generic Conversion Md ROGERS ECG ORDERABLES Final R esult Performing Organization Address City/State/[facility] Co vt Phone Number [facility] documented in this encounter Visit Diagnoses Diagnosis Chest pain Chest pain, unspecified documented in this encounter Care Teams Change Management Facilitator Relationship Specialty Start Date End Date Dennis Doran MD PCP - General INTERNAL MEDICINE 02/28/17 10/23/23 Joann Marquez ANP- [address] [facility] [address] [place] [address] [place] Outreach Specialist NURSE PRACTITIONER 02/28/17 documented as of this encounter
--- OUTSIDE RECORDS SUMMARY | 2024-10-26 08:22 | XMS_ITS | Encounter Summary ---
Author Organization [facility] Address [address] [place] [address]. [place] [address] [place] [address] Care Team Providers Care Senior System Operator Name Role Phone Dennis Doran MD Primary Care Provider [phone] Joann Marquez-ERICA Unavailable [phone] Encounter Details Date Type Department Care Team (Late st Contact Info) Description 03/18/2013 Abstract [facility] [address] [place] [address] Ho Bangura, CABIN FURNISHINGS INSTALLER [address] [facility] [address], [place] [address] Social History Tobacco Use Types [...] this encounter Visit Diagnoses Diagnosis Abdominal pain Abdominal pain, unspecified site documented in this encounter Care Teams Senior System Operator Relationship Specialty Start Date End Date Dennis Doran MD PCP - General INTERNAL MEDICINE 02/28/17 10/23/23 Joann Marquze ANP-BC [address] [facility] [address] [place] [address] [place] Cupola Worker NURSE PRACTITIONER 02/28/17 documented as of this encounter
--- OUTSIDE RECORDS SUMMARY | 2024-10-26 08:22 | XMS_ITS | Encounter Summary ---
Author Organization [facility] [place] Address [facility]. [place], [place] [address] [place] [address] Care Team Providers Care Building And Construction Manager Name Role Phone Dennis Doran MD Primary Care Provider [phone] Joann Marquez-BC Unavailable [phone] Encounter Details Date Type Department Care Team (Late st Contact Info) Description 03/02/2008 Abstract [facility] CONVERSION [address] [place] [address] Elsi Kerns, DO [address] [place] [address] Social History Tobacco Use Types Packs/Day [...] on filedocumented in this encounter Care Teams Building And Construction Manager Relationship Specialty Start Date End Date Dennis Doran MD PCP - General INTERNAL MEDICINE 02/28/17 10/23/23 Joann Marquez ANP-BC [address] [facility] 4P57 [place] [address] [place] Raw Stock Drier Tender NURSE PRACTITIONER 02/28/17 documented as of this encounter
--- OUTSIDE RECORDS SUMMARY | 2024-10-26 08:22 | XMS_ITS | Encounter Summary ---
Author Organization [facility] Address [address] [place] [address]. [place], [place] [address] [place] [address] Care Team Providers Care Anode Worker Name Role Phone Dennis Doran MD Primary Care Provider [phone] Joann Marquez-BC Unavailable [phone] Encounter Details Date Type Department Care Team (Late st Contact Info) Description 06/06/2010 Abstract [facility] CONVERSION [address] [place] [address] Denisha Hansen PA 1212 [place] [address] Social History Tobacco Use Types Packs/Day Years [...] on filedocumented in this encounter Care Teams Anode Worker Relationship Specialty Start Date End Date Dennis Doran MD PCP - General INTERNAL MEDICINE 02/28/17 10/23/23 Joann Marquez, ANP-BC [address] [facility] 4P57 [place] [address] [place] Duct Layer Helper NURSE PRACTITIONER 02/28/17 documented as of this encounter
--- OUTSIDE RECORDS SUMMARY | 2024-10-26 08:22 | XMS_ITS | Encounter Summary ---
Author Organization [facility] Address [address] [place] [address]. [place], [place] [address] [place] [address] Care Team Providers Care Whipped Topping Finisher Name Role Phone Unavailable Primary Care Provider Unavailabl e Encounter Details Date Type Department Care Team (Late st Contact Info) Description 11/02/2014 Abstract [facility] AT [address] [place] [address] , Dionicio Mabry MD Social History Tobacco [...]
--- OUTSIDE RECORDS SUMMARY | 2024-10-26 08:22 | XMS_ITS | Encounter Summary ---
Author Organization [facility] Address [address] [place] [address]. [place], [place] [address] [place] [address] Care Team Providers Care Automotive Wholesale Parts Advisor Name Role Phone Dennis Doran MD Primary Care Provider [phone] Joann Marquez-BC Unavailable [phone] Encounter Details Date Type Department Care Team (Late st Contact Info) Description 06/07/2010 Abstract [facility] CONVERSION [address] [place] [address] Denisha Hansen PA 1212 [place] [address] Social History Tobacco Use Types Packs/Day Years [...] on filedocumented in this encounter Care Teams Automotive Wholesale Parts Advisor Relationship Specialty Start Date End Date Dennis Doran MD PCP - General INTERNAL MEDICINE 02/28/17 10/23/23 Joann Marquez ANP-BC [address] [facility] 4P57 [place] [address] [place] Access Registrar NURSE PRACTITIONER 02/28/17 documented as of this encounter
--- OUTSIDE RECORDS SUMMARY | 2024-10-26 08:22 | XMS_ITS | Encounter Summary ---
Author Organization [facility] Address [facility]. [place], [place] [address] [place] [address] Care Team Providers Care Salesperson Automobiles Name Role Phone Dennis Doran MD Primary Care Provider [phone] Joann Marquez-ERICA Unavailable [phone] Encounter Details Date Type Department Care Team (Late st Contact Info) Description 07/27/2004 Abstract [facility] CONVERSION [address] [place] [address] Bertrand Mckeon MD [address] [place] [address] [phone] Social History Tobacco Use Types Packs/Day Years [...] on filedocumented in this encounter Care Teams Salesperson Automobiles Relationship Specialty Start Date End Date Dennis Doran MD PCP - General INTERNAL MEDICINE 02/28/17 10/23/23 Joann Marquez ANP-BC [address] [place] [address] 4P57 [place] [address] [place] Talent Program Manager NURSE PRACTITIONER 02/28/17 documented as of this encounter
--- OUTSIDE RECORDS SUMMARY | 2024-10-26 08:22 | XMS_ITS | Encounter Summary ---
Author Organization [facility] Address [address] [place] [address]. [place], [place] [address] [place] [address] Care Team Providers Care Medical Oncologist Name Role Phone Unavailable Primary Care Provider Unavailabl e Encounter Details Date Type Department Care Team (Late st Contact Info) Description 01/11/2015 [facility] [address] [place] [address] , Dionicio Mabry MD Social History Tobacco [...]
--- OUTSIDE RECORDS SUMMARY | 2024-10-26 08:22 | XMS_ITS | Encounter Summary ---
Author Organization [facility] Address [address] [place] [address]. [place], [place] [address] [place] [address] Care Team Providers Care Grain Thresher Name Role Phone Dennis Doran MD Primary Care Provider [phone] Joann Marquez-BC Unavailable [phone] Encounter Details Date Type Department Care Team (Late st Contact Info) Description 02/24/2010 Abstract [facility] CONVERSION [address] [place] [address] Denisha Hansen PA 1212 [place] [address] Social History Tobacco Use Types Packs/Day Years [...] on filedocumented in this encounter Care Teams Grain Thresher Relationship Specialty Start Date End Date Dennis Doran MD PCP - General INTERNAL MEDICINE 02/28/17 10/23/23 Joann Marquez, ANP-BC [address] [facility] 4P57 [place] [address] [place] Commercial Roofing Estimator NURSE PRACTITIONER 02/28/17 documented as of this encounter
--- OUTSIDE RECORDS SUMMARY | 2024-10-26 08:22 | XMS_ITS | Encounter Summary ---
Author Organization [facility] Address [address] [place] [address]. [place], [place] [address] [place] [address] Care Team Providers Care Change Control Manager Name Role Phone Unavailable Primary Care Provider Unavailabl e Encounter Details Date Type Department Care Team (Late st Contact Info) Description 01/19/2014 Abstract [facility] [address] [place] [address] , Dionicio Mabry MD Social [...] Procedure Name Priority Date/Time Associated Diagnosis Comments LIVER PROFILE Routine 01/19/2014 12:00 AM CDT LIPID PANEL Routine 01/19/2014 12:00 AM CDT documented in this encounter Results * LIVER PROFILE (01/19/2014 12:00 AM CDT) ALT 8 0 - 48 u/l MEDINFORM ATIX TO EPIC CONVERSION AST 13 0 - 42 u/l MEDINFORM ATIX TO EPIC CONVERSION 01/19/2014 01/19/2014 Narrative MEDINFORMATIX TO EPIC CONVERSION - 02/19/2014 9:28 AM CDT Reviewed by ARGENTINA Neumann ??1 2013 ??9:28:45:000AM us Generic Conversion Md [facility] Final R esult MEDINFORMATIX TO EPIC CONVERSION * LIPID PANEL (01/19/2014 12:00 AM CDT) TRIGLYCERIDES 172 0 - 150 mg/dl MEDINFORMATIX TO EPIC CONVERSION CHOLESTEROL 272 0 - 200 mg/dl MEDINFORMATIX TO EPIC CONVERSION HDL 35 40 - 59 mg/dl MEDINFORMATIX TO EPIC CONVERSION LDL CONVERSION 203 0 - 100 mg/dl MEDINFORMATIX TO EPIC CONVERSION 01/19/2014 01/19/2014 Narrative MEDINFORMATIX TO EPIC CONVERSION - 02/19/2014 9:24 AM CDT Reviewed by ARGENTINA Neumann ??1 2013 ??9:28:57:000AM us Generic Conversion Md [facility] Final R esruth ann MEDINFORMATIX TO EPIC CONVERSION documented in this encounter Visit Diagnoses Not on filedocumented in this encounter
--- OUTSIDE RECORDS SUMMARY | 2024-10-26 08:22 | XMS_ITS | Encounter Summary ---
Author Organization [facility] Address [facility]. [place], [place] [address] [place] [address] Care Team Providers Care Novelty Candy Maker Name Role Phone Dennis Doran MD Primary Care Provider [phone] Joann Marquez-BC Unavailable [phone] Encounter Details Date Type Department Care Team (Late st Contact Info) Description 02/11/2014 Abstract [facility] [address] [place] [address] Dieter Arechiga MD [address] [address] Social History Tobacco Use Types Packs/Day Years Used Date Smoking Tobacco: Never Assessed Sex and Gender Information Value Date Recorded Sex Assigned at Not on file Legal Sex Male 1:10 AM CDT Gender Identity Not on file Sexual Orientation Not on file documented as of this encounter Plan of Treatment Not on file documented as of this encounter Visit Diagnoses Diagnosis Type 2 or unspecified type diabetes mellitus (CMS/HCC HHS/HCC) documented in this encounter Care Teams Novelty Candy Maker Relationship Specialty Start Date End Date Dennis Doran MD PCP - General INTERNAL MEDICINE 02/28/17 10/23/23 Joann Marquez, AURELIANO-BC [address] [facility] 4P57 [place] [address] [place] Designer Writer NURSE PRACTITIONER 02/28/17 documented as of this encounter
--- OUTSIDE RECORDS SUMMARY | 2024-10-26 08:22 | XMS_ITS | Encounter Summary ---
Author Organization [facility] Address [address] [place] [address]. [place], [place] [address] [place] [address] Care Team Providers Care Human Resource Internship Name Role Phone Unavailable Primary Care Provider Unavailabl e Encounter Details Date Type Department Care Team (Late st Contact Info) Description 01/28/2014 Abstract [facility] [address] [place] [address] , Generic Conversion, Social History Tobacco Use Types Packs/Day Years [...] Associated Diagnosis Comments EXTERNAL EJECTION FRACTION Routine 01/28/2014 12:00 AM CDT documented in this encounter Results * EXTERNAL EJECTION FRACTION (01/28/2014 12:00 AM CDT) EJECTION FRACTION [facility] Comment:see report Anatomical Region Laterality Modality Other 01/28/2014 01/28/2014 Narrative 01/28/2014 12:00 AM CDT transthoracic echo, us Generic Conversion Md [facility] Final R esult documented in this encounter Visit Diagnoses Not on filedocumented in this encounter
--- OUTSIDE RECORDS SUMMARY | 2024-10-26 08:22 | XMS_ITS | Encounter Summary ---
Author Organization [facility] Address [facility]. [place], [place] [address] [place] [address] Care Team Providers Care Certified Low Vision Therapist Name Role Phone Dennis Doran MD Primary Care Provider [phone] Joann Marquez-ERICA Unavailable [phone] Encounter Details Date Type Department Care Team (Late st Contact Info) Description 06/12/2005 Abstract [facility] CONVERSION [address] [place] [address] Bertrand Mckeon MD [address] [place] [address] [phone] Social History Tobacco Use Types Packs/Day Years [...] on filedocumented in this encounter Care Teams Certified Low Vision Therapist Relationship Specialty Start Date End Date Dennis Doran MD PCP - General INTERNAL MEDICINE 02/28/17 10/23/23 Joann Marquez ANP-BC [address] [facility] 4P57 [place] [address] [place] Cad Intern NURSE PRACTITIONER 02/28/17 documented as of this encounter
--- OUTSIDE RECORDS SUMMARY | 2024-10-26 08:22 | XMS_ITS | Encounter Summary ---
Author Organization [facility] Address [facility]. [place], [place] [address] [place] [address] Care Team Providers Care Shank Inspector Name Role Phone Dennis Doran MD Primary Care Provider [phone] Joann Marquez-ERICA Unavailable [phone] Encounter Details Date Type Department Care Team (Late st Contact Info) Description 02/15/2004 Abstract [facility] CONVERSION [address] [place] [address] Bertrand Mckeon MD [address] [place] [address] [phone] Social History Tobacco Use Types Packs/Day Years [...] on filedocumented in this encounter Care Teams Shank Inspector Relationship Specialty Start Date End Date Dennis Doran MD PCP - General INTERNAL MEDICINE 02/28/17 10/23/23 Joann Marquez ANP-BC [address] [place] [address] 4P57 [place] [address] [place] Eap Counselor NURSE PRACTITIONER 02/28/17 documented as of this encounter
--- OUTSIDE RECORDS SUMMARY | 2024-10-26 08:22 | XMS_ITS | Encounter Summary ---
Author Organization [facility] Address [address] [place] [address]. [place], [place] [address] [place] [address] Care Team Providers Care Shuttle Buggy Operator Name Role Phone Unavailable Primary Care Provider Unavailabl e Encounter Details Date Type Department Care Team (Late st Contact Info) Description 02/11/2014 Abstract [facility] [address] [place] [address] , Dionicio Mabry MD Social History Tobacco [...]
--- OUTSIDE RECORDS SUMMARY | 2024-10-26 08:22 | XMS_ITS | Encounter Summary ---
Author Organization [facility] Address [facility]. [place], [place] [address] [place] [address] Care Team Providers Care Recovery Unit Operator Name Role Phone Dennis Doran MD Primary Care Provider [phone] Joann Marquez-ERICA Unavailable [phone] Encounter Details Date Type Department Care Team (Late st Contact Info) Description 04/17/2005 Abstract [facility] CONVERSION [address] [place] [address] Bertrand Mckeon MD [address] [place] [address] [phone] Social History Tobacco Use Types Packs/Day Years [...] on filedocumented in this encounter Care Teams Recovery Unit Operator Relationship Specialty Start Date End Date Dennis Doran MD PCP - General INTERNAL MEDICINE 02/28/17 10/23/23 Joann Marquez ANP-BC [address] [place] [address] 4P57 [place] [address] [place] School Cleaner NURSE PRACTITIONER 02/28/17 documented as of this encounter
--- OUTSIDE RECORDS SUMMARY | 2024-10-26 08:22 | XMS_ITS | Encounter Summary ---
Author Organization [facility] Address [facility] [place], [place] [address] [place] [address] Care Team Providers Care Project Internship Name Role Phone Dennis Doran MD Primary Care Provider [phone] Joann Marquez-ERICA Unavailable [phone] Encounter Details Date Type Department Care Team (Late st Contact Info) Description 05/10/2004 Abstract [facility] CONVERSION [address] [place] [address] Bertrand Mckeon MD [address] [place] [address] [phone] Social History Tobacco Use Types Packs/Day Years [...] on filedocumented in this encounter Care Teams Project Internship Relationship Specialty Start Date End Date Dennis Doran MD PCP - General INTERNAL MEDICINE 02/28/17 10/23/23 Joann Marquez ANP-BC [address] [facility] [address]P57 [place] [address] [place] Production Laborer NURSE PRACTITIONER 02/28/17 documented as of this encounter
--- OUTSIDE RECORDS SUMMARY | 2024-10-26 08:22 | XMS_ITS | Encounter Summary ---
Author Organization [facility] Address [address] [place] [address]. [place], [place] [address] [place] [address] Care Team Providers Care Electrical Troubleshooter Name Role Phone Dennis Doran MD Primary Care Provider [phone] Joann Marquez-BC Unavailable [phone] Encounter Details Date Type Department Care Team (Late st Contact Info) Description 03/17/2009 Abstract [facility] Emergency Room [address] [place] [address] Social History Tobacco Use Types Packs/Day Years [...] on filedocumented in this encounter Care Teams Electrical Troubleshooter Relationship Specialty Start Date End Date Dennis Doran MD PCP - General INTERNAL MEDICINE 02/28/17 10/23/23 Joann Marquez ANP-BC [address] [place] [address] 4P57 [place] [address] [place] Surveyor Helper NURSE PRACTITIONER 02/28/17 documented as of this encounter
--- OUTSIDE RECORDS SUMMARY | 2024-10-26 08:22 | XMS_ITS | Encounter Summary ---
Author Organization [facility] Address [address] [place] [address]. [place], [place] [address] [place] [address] Care Team Providers Care Breast Trimmer Name Role Phone Unavailable Primary Care Provider Unavailabl e Encounter Details Date Type Department Care Team (Late st Contact Info) Description 02/16/2014 Abstract [facility] [address] [place] [address] , Dionicio Mabry MD Social History Tobacco [...]
--- OUTSIDE RECORDS SUMMARY | 2024-10-26 08:22 | XMS_ITS | Encounter Summary ---
Author Organization [facility] Address [address] [place] [address]. [place], [place] [address] [place] [address] Care Team Providers Care Contingents Supervisor Name Role Phone Dennis Doran MD Primary Care Provider [phone] Joann Marquez-BC Unavailable [phone] Encounter Details Date Type Department Care Team (Late st Contact Info) Description 11/26/2007 Abstract [facility] CONVERSION [address] [place] [address] Elsi Kerns, DO [address] [place] [address] Social History Tobacco Use Types Packs/Day [...] on filedocumented in this encounter Care Teams Contingents Supervisor Relationship Specialty Start Date End Date Dennis Doran MD PCP - General INTERNAL MEDICINE 02/28/17 10/23/23 Joann Marquez ANP-BC [address] [facility] 4P57 [place] [address] [place] Manager Call NURSE PRACTITIONER 02/28/17 documented as of this encounter
--- OUTSIDE RECORDS SUMMARY | 2024-10-26 08:22 | XMS_ITS | Encounter Summary ---
Author Organization [facility] Address [address] [place] [address]. [place], [place] [address] [place] [address] Care Team Providers Care Sports Trainer Name Role Phone Unavailable Primary Care Provider Unavailabl e Encounter Details Date Type Department Care Team (Late st Contact Info) Description 11/02/2014 [facility] [address] [place] [address] , Dionicio Mabry MD Social History Tobacco [...]
--- OUTSIDE RECORDS SUMMARY | 2024-10-26 08:22 | XMS_ITS | Encounter Summary ---
Author Organization [facility] Address [address] [place] [address]. [place], [place] [address] [place] [address] Care Team Providers Care Assembler Piano Name Role Phone Unavailable Primary Care Provider Unavailabl e Encounter Details Date Type Department Care Team (Late st Contact Info) Description 09/09/2015 [facility] [address] [place] [address] , Dionicio Mabry MD Social History Tobacco [...]
--- OUTSIDE RECORDS SUMMARY | 2024-10-26 08:23 | XMS_ITS | Encounter Summary ---
Author Organization [facility] Address [facility] [place], [place] [address] [place] [address] Care Team Providers Care Web Knitter Name Role Phone Dennis Doran MD Primary Care Provider [phone] Joann Marquez-BC Unavailable [phone] Encounter Details Date Type Department Care Team (Late st Contact Info) Description 06/18/1995 Abstract [facility] CONVERSION [address] [place] [address] , Generic Conversion, Social History Tobacco Use [...] on filedocumented in this encounter Care Teams Web Knitter Relationship Specialty Start Date End Date Dennis Doran MD PCP - General INTERNAL MEDICINE 02/28/17 10/23/23 Joann Marquez ANP-BC [address] [place] [address] 4P57 [place] [address] [place] Sole Conforming Machine Operator NURSE PRACTITIONER 02/28/17 documented as of this encounter
--- OUTSIDE RECORDS SUMMARY | 2024-10-26 08:23 | XMS_ITS | Encounter Summary ---
Author Organization [facility] Address [facility]. [place], [place] [address] [place] [address] Care Team Providers Care Pamphlet Distributor Name Role Phone Dennis Doran MD Primary Care Provider [phone] Jonan Marquez-BC Unavailable [phone] Encounter Details Date Type Department Care Team (Late st Contact Info) Description 08/25/2002 Abstract [facility] CONVERSION [address] [place] [address] , Generic Conversion, Social History Tobacco Use [...] on filedocumented in this encounter Care Teams Pamphlet Distributor Relationship Specialty Start Date End Date Dennis Doran MD PCP - General INTERNAL MEDICINE 02/28/17 10/23/23 Joann Marquez ANP-BC [address] [place] [address] 4P57 [place] [address] [place] [employer] Flight Check Pilot NURSE PRACTITIONER 02/28/17 documented as of this encounter
--- OUTSIDE RECORDS SUMMARY | 2024-10-26 08:23 | XMS_ITS | Encounter Summary ---
Author Organization [facility] Address [facility]6 [facility]. [place], [place] [address] [place] [address] Care Team Providers Care Motor Vehicle Examiner Name Role Phone Dennis Doran MD Primary Care Provider [phone] Joann Marquez-BC Unavailable [phone] Encounter Details Date Type Department Care Team (Late st Contact Info) Description 07/06/1995 Abstract [facility] CONVERSION [address] [place] [address] , Generic Conversion, Social History Tobacco Use [...] on filedocumented in this encounter Care Teams Motor Vehicle Examiner Relationship Specialty Start Date End Date Dennis Doran MD PCP - General INTERNAL MEDICINE 02/28/17 10/23/23 Joann Marquez ANP-BC [address] [place] [address] 4P57 [place] [address] [place] Battery Container Finishing Hand NURSE PRACTITIONER 02/28/17 documented as of this encounter
--- OUTSIDE RECORDS SUMMARY | 2024-10-26 08:23 | XMS_ITS | Encounter Summary ---
Author Organization [facility] Address [facility]6 [facility]. [place], [place] [address] [place] [address] Care Team Providers Care Derrick Builder Name Role Phone Dennis Doran MD Primary Care Provider [phone] Joann Marquez-BC Unavailable [phone] Encounter Details Date Type Department Care Team (Late st Contact Info) Description 06/12/2001 Abstract [facility] CONVERSION [address] [place] [address] , Generic Conversion, Social History Tobacco Use [...] on filedocumented in this encounter Care Teams Derrick Builder Relationship Specialty Start Date End Date Dennis Doran MD PCP - General INTERNAL MEDICINE 02/28/17 10/23/23 Joann Marquez ANP-BC [address] [place] [address] 4P57 [place] [address] [place] Occupational Health Physician NURSE PRACTITIONER 02/28/17 documented as of this encounter
--- OUTSIDE RECORDS SUMMARY | 2024-10-26 08:23 | XMS_ITS | Encounter Summary ---
Author Organization [facility] Address [facility]. [place], [place] [address] [place] [address] Care Team Providers Care Fisher Terrapin Name Role Phone Dennis Doran MD Primary Care Provider [phone] Joann Marquez-BC Unavailable [phone] Encounter Details Date Type Department Care Team (Late st Contact Info) Description 10/10/2001 Abstract [facility] CONVERSION [address] [place] [address] , Generic Conversion, Social History Tobacco Use [...] on filedocumented in this encounter Care Teams Fisher Terrapin Relationship Specialty Start Date End Date Dennis Doran MD PCP - General INTERNAL MEDICINE 02/28/17 10/23/23 Joann Marquez ANP-BC [address] [place] [address] 4P57 [place] [address] [place] Program Manager Transportation NURSE PRACTITIONER 02/28/17 documented as of this encounter
--- OUTSIDE RECORDS SUMMARY | 2024-10-26 08:23 | XMS_ITS | Encounter Summary ---
Author Organization [facility] Address [facility]6 [facility]. [place], [place] [address] [place] [address] Care Team Providers Care Radio Presenter Name Role Phone Dennis Doran MD Primary Care Provider [phone] Joann Marquez-BC Unavailable [phone] Encounter Details Date Type Department Care Team (Late st Contact Info) Description 04/21/1996 Abstract [facility] CONVERSION [address] [place] [address] , Generic Conversion, Social History Tobacco Use [...] on filedocumented in this encounter Care Teams Radio Presenter Relationship Specialty Start Date End Date Dennis Doran MD PCP - General INTERNAL MEDICINE 02/28/17 10/23/23 Joann Marquez ANP-BC [address] [place] [address] 4P[address] [place] [address] [place] Jeeper Operator NURSE PRACTITIONER 02/28/17 documented as of this encounter
--- OUTSIDE RECORDS SUMMARY | 2024-10-26 08:23 | XMS_ITS | Encounter Summary ---
Author Organization [facility] Address [facility] [place], [place] [address] [place] [address] Care Team Providers Care Missile Tracking Technician Name Role Phone Dennis Doran MD Primary Care Provider [phone] Joann Marquez-BC Unavailable [phone] Encounter Details Date Type Department Care Team (Late st Contact Info) Description 01/31/1994 Abstract [facility] CONVERSION [address] [place] [address] , Generic Conversion, Social History Tobacco Use [...] on filedocumented in this encounter Care Teams Missile Tracking Technician Relationship Specialty Start Date End Date Dennis Doran MD PCP - General INTERNAL MEDICINE 02/28/17 10/23/23 Joann Marquez ANP-BC [address] [place] [address] [address] [place] [address] [place] Rn Radiation Oncology NURSE PRACTITIONER 02/28/17 documented as of this encounter
--- OUTSIDE RECORDS SUMMARY | 2024-10-26 08:23 | XMS_ITS | Encounter Summary ---
Author Organization [facility] Address [facility]6 [facility]. [place], [place] [address] [place] [address] Care Team Providers Care Aix Administrator Name Role Phone Dennis Doran MD Primary Care Provider [phone] Joann Marquez-BC Unavailable [phone] Encounter Details Date Type Department Care Team (Late st Contact Info) Description 05/28/2003 Abstract [facility] CONVERSION [address] [place] [address] , Generic Conversion, Social History Tobacco Use [...] on filedocumented in this encounter Care Teams Aix Administrator Relationship Specialty Start Date End Date Dennis Doran MD PCP - General INTERNAL MEDICINE 02/28/17 10/23/23 Joann Marquez ANP-BC [address] [place] [address] 4[address] [place] [address] [place] Activity Aid NURSE PRACTITIONER 02/28/17 documented as of this encounter
--- OUTSIDE RECORDS SUMMARY | 2024-10-26 08:23 | XMS_ITS | Encounter Summary ---
Author Organization [facility] Address [facility]6 [facility] [place], [place] [address] [place] [address] Care Team Providers Care Ict Support Engineer Name Role Phone Dennis Doran MD Primary Care Provider [phone] Joann Marquez-BC Unavailable [phone] Encounter Details Date Type Department Care Team (Late st Contact Info) Description 03/13/1999 Abstract [facility] CONVERSION [address] [place] [address] , Generic Conversion, Social History Tobacco Use [...] on filedocumented in this encounter Care Teams Ict Support Engineer Relationship Specialty Start Date End Date Dennis Doran MD PCP - General INTERNAL MEDICINE 02/28/17 10/23/23 Joann Maqruez ANP-BC [address] [place] [address] 4[address] [place] [address] Julian Stripe Marker NURSE PRACTITIONER 02/28/17 documented as of this encounter
--- OUTSIDE RECORDS SUMMARY | 2024-10-26 08:23 | XMS_ITS | Encounter Summary ---
Author Organization [facility] Address [facility]6 [facility]. [place], [place] [address] [place] [address] Care Team Providers Care Slice Cutting Machine Operator Helper Name Role Phone Dennis Doran MD Primary Care Provider [phone] Joann Marquez-BC Unavailable [phone] Encounter Details Date Type Department Care Team (Late st Contact Info) Description 12/21/1995 Abstract [facility] CONVERSION [address] [place] [address] , Generic Conversion, Social History Tobacco Use [...] on filedocumented in this encounter Care Teams Slice Cutting Machine Operator Helper Relationship Specialty Start Date End Date Dennis Doran MD PCP - General INTERNAL MEDICINE 02/28/17 10/23/23 Joann Marquez ANP-BC [address] [place] [address] [address] [place] [address] Lawai Wood Milling Machine Hand NURSE PRACTITIONER 02/28/17 documented as of this encounter
--- OUTSIDE RECORDS SUMMARY | 2024-10-26 08:23 | XMS_ITS | Encounter Summary ---
Author Organization [facility] Address [facility]. [place], [place] [address] [place] [address] Care Team Providers Care Ground Crew Supervisor Name Role Phone Dennis Doran MD Primary Care Provider [phone] Joann Marquez-BC Unavailable [phone] Encounter Details Date Type Department Care Team (Late st Contact Info) Description 01/07/2002 Abstract [facility] CONVERSION [address] [place] [address] , Generic Conversion, Social History Tobacco Use [...] on filedocumented in this encounter Care Teams Ground Crew Supervisor Relationship Specialty Start Date End Date Dennis Doran MD PCP - General INTERNAL MEDICINE 02/28/17 10/23/23 Joann Marquez ANP-BC [address] [place] [address] 4[address] [place] [address] [place] Child Welfare Worker NURSE PRACTITIONER 02/28/17 documented as of this encounter
--- OUTSIDE RECORDS SUMMARY | 2024-10-26 08:23 | XMS_ITS | Encounter Summary ---
Author Organization [facility] Address [facility]6 [facility]. [place], [place] [address] [place] [address] Care Team Providers Care Official Court Reporter Name Role Phone Dennis Doran MD Primary Care Provider [phone] Joann Marquez-BC Unavailable [phone] Encounter Details Date Type Department Care Team (Late st Contact Info) Description 10/10/1994 Abstract [facility] CONVERSION [address] [place] [address] , Generic Conversion, Social History Tobacco Use [...] on filedocumented in this encounter Care Teams Official Court Reporter Relationship Specialty Start Date End Date Dennis Doran MD PCP - General INTERNAL MEDICINE 02/28/17 10/23/23 Joann Marquez ANP-BC [address] [place] [address] [address] [place] [address] [place] Planning Supervisor NURSE PRACTITIONER 02/28/17 documented as of this encounter
--- OUTSIDE RECORDS SUMMARY | 2024-10-26 08:23 | XMS_ITS | Encounter Summary ---
Author Organization [facility] Address [facility]6 [facility]. [place], [place] [address] [place] [address] Care Team Providers Care Reinforced Concrete Inspector Name Role Phone Dennis Doran MD Primary Care Provider [phone] Joann Marquez-BC Unavailable [phone] Encounter Details Date Type Department Care Team (Late st Contact Info) Description 06/25/2003 Abstract [facility] CONVERSION [address] [place] [address] , Generic Conversion, Social History Tobacco Use [...] on filedocumented in this encounter Care Teams Reinforced Concrete Inspector Relationship Specialty Start Date End Date Dennis Doran MD PCP - General INTERNAL MEDICINE 02/28/17 10/23/23 Joann Marquez ANP-BC [address] [place] [address] 4[address] [place] [address] [place] Assembly Line Leader NURSE PRACTITIONER 02/28/17 documented as of this encounter
--- OUTSIDE RECORDS SUMMARY | 2024-10-26 08:23 | XMS_ITS | Encounter Summary ---
Author Organization [facility] Address [facility]6 [facility]. [place], [place] [address] [place] [address] Care Team Providers Care Creative Arts Music Therapist Name Role Phone Dennis Doran MD Primary Care Provider [phone] Joann Marquez-BC Unavailable [phone] Encounter Details Date Type Department Care Team (Late st Contact Info) Description 05/06/2002 Abstract [facility] CONVERSION [address] [place] [address] , Generic Conversion, Social History Tobacco Use [...] on filedocumented in this encounter Care Teams Creative Arts Music Therapist Relationship Specialty Start Date End Date Dennis Doran MD PCP - General INTERNAL MEDICINE 02/28/17 10/23/23 Joann Marquez ANP-BC [address] [place] [address] [address] [place] [address] Bernard J2Ee Developer NURSE PRACTITIONER 02/28/17 documented as of this encounter
--- OUTSIDE RECORDS SUMMARY | 2024-10-26 08:23 | XMS_ITS | Encounter Summary ---
Author Organization [facility] Address [facility]. [place], [place] [address] [place] [address] Care Team Providers Care Tool And Die Assembler Name Role Phone Dennis Doran MD Primary Care Provider [phone] Joann Marquez-BC Unavailable [phone] Encounter Details Date Type Department Care Team (Late st Contact Info) Description 03/07/2000 Abstract [facility] CONVERSION [address] [place] [address] , Generic Conversion, Social History Tobacco Use [...] on filedocumented in this encounter Care Teams Tool And Die Assembler Relationship Specialty Start Date End Date Dennis Doran MD PCP - General INTERNAL MEDICINE 02/28/17 10/23/23 Joann Marquez ANP-BC [address] [place] [address] 4[address] [place] [address] [place] Corporate Relations Director NURSE PRACTITIONER 02/28/17 documented as of this encounter
--- OUTSIDE RECORDS SUMMARY | 2024-10-26 08:23 | XMS_ITS | Encounter Summary ---
Author Organization [facility] Address [facility]. [place], [place] [address] [place] [address] Care Team Providers Care Coil Maker Name Role Phone Dennis Doran MD Primary Care Provider [phone] Joann Marquez-BC Unavailable [phone] Encounter Details Date Type Department Care Team (Late st Contact Info) Description 06/18/2003 Abstract [facility] CONVERSION [address] [place] [address] , Generic Conversion, Social History Tobacco Use [...] on filedocumented in this encounter Care Teams Coil Maker Relationship Specialty Start Date End Date Dennis Doran MD PCP - General INTERNAL MEDICINE 02/28/17 10/23/23 Joann Marquez ANP-BC [address] [place] [address] 4[address] [place] [address] Festus Import Dispatcher NURSE PRACTITIONER 02/28/17 documented as of this encounter
--- OUTSIDE RECORDS SUMMARY | 2024-10-26 08:23 | XMS_ITS | Encounter Summary ---
Author Organization [facility] Address [facility]6 [facility]. [place], [place] [address] [place] [address] Care Team Providers Care Salvage Supervisor Name Role Phone Dennis Doran MD Primary Care Provider [phone] Joann Marquez-BC Unavailable [phone] Encounter Details Date Type Department Care Team (Late st Contact Info) Description 10/03/2001 Abstract [facility] CONVERSION [address] [place] [address] , Generic Conversion, Social History Tobacco Use [...] on filedocumented in this encounter Care Teams Salvage Supervisor Relationship Specialty Start Date End Date Dennis Doran MD PCP - General INTERNAL MEDICINE 02/28/17 10/23/23 Joann Marquez ANP-BC [address] [place] [address] 4[address] [place] [address] [place] Budder NURSE PRACTITIONER 02/28/17 documented as of this encounter
--- OUTSIDE RECORDS SUMMARY | 2024-10-26 08:23 | XMS_ITS | Encounter Summary ---
Author Organization [facility] Address [facility] [place]6 [facility]. [place], [place] [address] [place] [address] Care Team Providers Care Health Educator Name Role Phone Dennis Doran MD Primary Care Provider [phone] Joann Marquez-BC Unavailable [phone] Encounter Details Date Type Department Care Team (Late st Contact Info) Description 10/12/2003 Abstract [facility] CONVERSION [address] [place] [address] , Generic Conversion, Social History Tobacco Use [...] on filedocumented in this encounter Care Teams Health Educator Relationship Specialty Start Date End Date Dennis Doran MD PCP - General INTERNAL MEDICINE 02/28/17 10/23/23 Joann Marquez ANP-BC [address] [place] [address] 4[address] [place] [address] [place] Scouring Machine Operator NURSE PRACTITIONER 02/28/17 documented as of this encounter
--- OUTSIDE RECORDS SUMMARY | 2024-10-26 08:23 | XMS_ITS | Encounter Summary ---
Author Organization [facility] Address [facility]6 [facility]. [place], [place] [address] [place] [address] Care Team Providers Care Paper Steamer Name Role Phone Dennis Doran MD Primary Care Provider [phone] Joann Marquez-BC Unavailable [phone] Encounter Details Date Type Department Care Team (Late st Contact Info) Description 01/08/2002 Abstract [facility] CONVERSION [address] [place] [address] , Generic Conversion, Social History Tobacco Use [...] on filedocumented in this encounter Care Teams Paper Steamer Relationship Specialty Start Date End Date Dennis Doran MD PCP - General INTERNAL MEDICINE 02/28/17 10/23/23 Joann Marquez ANP-BC [address] [place] [address] 4[address] [place] [address] Sophia Real Estate Lawyer NURSE PRACTITIONER 02/28/17 documented as of this encounter
--- OUTSIDE RECORDS SUMMARY | 2024-10-26 08:23 | XMS_ITS | Encounter Summary ---
Author Organization [facility] Address [facility] [facility]. [place], [place] [address] [place] [address] Care Team Providers Care Mathematics Lecturer Name Role Phone Dennis Doran MD Primary Care Provider [phone] Joann Marquez-BC Unavailable [phone] Encounter Details Date Type Department Care Team (Late st Contact Info) Description 09/30/2001 Abstract [facility] CONVERSION [address] [place] [address] , Generic Conversion, Social History Tobacco Use [...] on filedocumented in this encounter Care Teams Mathematics Lecturer Relationship Specialty Start Date End Date Dennis Doran MD PCP - General INTERNAL MEDICINE 02/28/17 10/23/23 Joann Marquez ANP-BC [address] [place] [address] 4[address]57 [place] [address] Costilla Rough Carpenter NURSE PRACTITIONER 02/28/17 documented as of this encounter
--- OUTSIDE RECORDS SUMMARY | 2024-10-26 08:23 | XMS_ITS | Encounter Summary ---
Author Organization [facility] Address Counts include 234 beds at the [facility] [facility]. [place], [place] [address] [place] [address] Care Team Providers Care Dye Can Operator Name Role Phone Dennis Doran MD Primary Care Provider [phone] Joann Marquez-BC Unavailable [phone] Encounter Details Date Type Department Care Team (Late st Contact Info) Description 03/26/1995 Abstract [facility] CONVERSION [address] [place] [address] , Generic Conversion, Social History Tobacco Use [...] on filedocumented in this encounter Care Teams Dye Can Operator Relationship Specialty Start Date End Date Dennis Doran MD PCP - General INTERNAL MEDICINE 02/28/17 10/23/23 Joann Marquez ANP-BC [address] [place] [address] 4[address] [place] [address] [place] Photographic Developer And Printer NURSE PRACTITIONER 02/28/17 documented as of this encounter
--- OUTSIDE RECORDS SUMMARY | 2024-10-26 08:23 | XMS_ITS | Encounter Summary ---
Author Organization [facility] Address [facility]. [place], [place] [address] [place] [address] Care Team Providers Care Manager Medicaid Name Role Phone Dennis Doran MD Primary Care Provider [phone] Joann Marquez-BC Unavailable [phone] Encounter Details Date Type Department Care Team (Late st Contact Info) Description 06/15/2003 Abstract [facility] CONVERSION [address] [place] [address] , Generic Conversion, Social History Tobacco Use [...] on filedocumented in this encounter Care Teams Manager Medicaid Relationship Specialty Start Date End Date Dennis Doran MD PCP - General INTERNAL MEDICINE 02/28/17 10/23/23 Joann Marquez ANP-BC [address] [place] [address] 4[address] [place] [address] [place]ola Websphere Process Server Developer NURSE PRACTITIONER 02/28/17 documented as of this encounter
--- OUTSIDE RECORDS SUMMARY | 2024-10-26 08:23 | XMS_ITS | Encounter Summary ---
Author Organization [facility] Address [facility]6 [facility] [place], [place] [address] [place] [address] Care Team Providers Care Gas Engine Performance Engineer Name Role Phone Dennis Doran MD Primary Care Provider [phone] Joann Marquez-BC Unavailable [phone] Encounter Details Date Type Department Care Team (Late st Contact Info) Description 09/03/1994 Abstract [facility] CONVERSION [address] [place] [address] , Generic Conversion, Social History Tobacco Use [...] on filedocumented in this encounter Care Teams Gas Engine Performance Engineer Relationship Specialty Start Date End Date Dennis Doran MD PCP - General INTERNAL MEDICINE 02/28/17 10/23/23 Joann Marquez ANP-BC [address] [place] [address] 4[address] [place] [address] Tullos Uat Tester NURSE PRACTITIONER 02/28/17 documented as of this encounter
--- OUTSIDE RECORDS SUMMARY | 2024-10-26 08:23 | XMS_ITS | Encounter Summary ---
Author Organization [facility] Address [facility] [place], [place] [address] [place] [address] Care Team Providers Care Tax Advisor Name Role Phone Dennis Doran MD Primary Care Provider [phone] Joann Marquez-BC Unavailable [phone] Encounter Details Date Type Department Care Team (Late st Contact Info) Description 06/30/2000 Abstract [facility] CONVERSION [address] [place] [address] , Generic Conversion, Social History Tobacco Use [...] on filedocumented in this encounter Care Teams Tax Advisor Relationship Specialty Start Date End Date Dennis Doran MD PCP - General INTERNAL MEDICINE 02/28/17 10/23/23 Joann Marquez ANP-BC [address] [place] [address] 4[address] [place] [address] [place] Pin Chaser NURSE PRACTITIONER 02/28/17 documented as of this encounter
--- OUTSIDE RECORDS SUMMARY | 2024-10-26 08:23 | XMS_ITS | Encounter Summary ---
Author Organization [facility] Address [facility]6 [facility]. [place], [place] [address] [place] [address] Care Team Providers Care Editorial Project Manager Name Role Phone Dennis Doran MD Primary Care Provider [phone] Joann Marquez-BC Unavailable [phone] Encounter Details Date Type Department Care Team (Late st Contact Info) Description 05/13/1997 Abstract [facility] CONVERSION [address] [place] [address] , Generic Conversion, Social History Tobacco Use [...] on filedocumented in this encounter Care Teams Editorial Project Manager Relationship Specialty Start Date End Date Dennis Doran MD PCP - General INTERNAL MEDICINE 02/28/17 10/23/23 Joann Marquez ANP-BC [address] [place] [address] 4[address] [place] [address] [place] Help Desk Team Leader NURSE PRACTITIONER 02/28/17 documented as of this encounter
--- OUTSIDE RECORDS SUMMARY | 2024-10-26 08:23 | XMS_ITS | Encounter Summary ---
Author Organization [facility] Address [facility]6 [facility]. [place], [place] [address] [place] [address] Care Team Providers Care Detacher Name Role Phone Dennis Doran MD Primary Care Provider [phone] Joann Marquez-BC Unavailable [phone] Encounter Details Date Type Department Care Team (Late st Contact Info) Description 01/01/1995 Abstract [facility] CONVERSION [address] [place] [address] , Generic Conversion, Social History Tobacco Use [...] on filedocumented in this encounter Care Teams Detacher Relationship Specialty Start Date End Date Dennis Doran MD PCP - General INTERNAL MEDICINE 02/28/17 10/23/23 Joann Marquez ANP-BC [address] [place] [address] 4[address] [place] [address] [place] Crop Or Grain Farmer NURSE PRACTITIONER 02/28/17 documented as of this encounter
--- OUTSIDE RECORDS SUMMARY | 2024-10-26 08:23 | XMS_ITS | Encounter Summary ---
Author Organization [facility] Address [facility]. [place], [place] [address] [place] [address] Care Team Providers Care Clinical Informatics Strategist Name Role Phone Dennis Doran MD Primary Care Provider [phone] Joann Marquez-BC Unavailable [phone] Encounter Details Date Type Department Care Team (Late st Contact Info) Description 07/09/2002 Abstract [facility] CONVERSION [address] [place] [address] , Generic Conversion, Social History Tobacco Use [...] on filedocumented in this encounter Care Teams Clinical Informatics Strategist Relationship Specialty Start Date End Date Dennis Doran MD PCP - General INTERNAL MEDICINE 02/28/17 10/23/23 Joann Marquez ANP-BC [address] [place] [address] 4[address] [place] [address] [place] Exercise Planner NURSE PRACTITIONER 02/28/17 documented as of this encounter
--- OUTSIDE RECORDS SUMMARY | 2024-10-26 08:23 | XMS_ITS | Encounter Summary ---
Author Organization [facility] Address [facility]ly [facility], [id number] [facility] [place], [place] [address] [place] [address] Care Team Providers Care Wastewater Supervisor Name Role Phone Dennis Doran MD Primary Care Provider [phone] Joann Marquez-BC Unavailable [phone] Encounter Details Date Type Department Care Team (Late st Contact Info) Description 05/18/2003 Abstract [facility] CONVERSION [address] [place] [address] , Generic Conversion, Social History Tobacco Use [...] on filedocumented in this encounter Care Teams Wastewater Supervisor Relationship Specialty Start Date End Date Dennis Doran MD PCP - General INTERNAL MEDICINE 02/28/17 10/23/23 Joann Marquez ANP-BC [address] [place] [address] [address] [place] [address] [place] Director Emergency Services NURSE PRACTITIONER 02/28/17 documented as of this encounter
--- OUTSIDE RECORDS SUMMARY | 2024-10-26 08:23 | XMS_ITS | Encounter Summary ---
Author Organization [facility] Address [facility]. [place], [place] [address] [place] [address] Care Team Providers Care Insole Taper Name Role Phone Dennis Doran MD Primary Care Provider [phone] Joann Marquez-BC Unavailable [phone] Encounter Details Date Type Department Care Team (Late st Contact Info) Description 06/16/2002 Abstract [facility] CONVERSION [address] [place] [address] , Generic Conversion, Social History Tobacco Use [...] on filedocumented in this encounter Care Teams Insole Taper Relationship Specialty Start Date End Date Dennis Doran MD PCP - General INTERNAL MEDICINE 02/28/17 10/23/23 Joann Marquez ANP-BC [address] [place] [address] [address] [place] [address] [place] Book Mender NURSE PRACTITIONER 02/28/17 documented as of this encounter
--- OUTSIDE RECORDS SUMMARY | 2024-10-26 08:23 | XMS_ITS | Encounter Summary ---
Author Organization [facility] Address [facility]. [place], [place] [address] [place] [address] Care Team Providers Care Geospatial Information Scientist Name Role Phone Dennis Doran MD Primary Care Provider [phone] Joann Marquez-BC Unavailable [phone] Encounter Details Date Type Department Care Team (Late st Contact Info) Description 04/08/1996 Abstract [facility] CONVERSION [address] [place] [address] , Generic Conversion, Social History Tobacco Use [...] on filedocumented in this encounter Care Teams Geospatial Information Scientist Relationship Specialty Start Date End Date Dennis Doran MD PCP - General INTERNAL MEDICINE 02/28/17 10/23/23 Joann Marquez ANP-BC [address] [place] [address] [address] [place] [address] [place] Corset Maker NURSE PRACTITIONER 02/28/17 documented as of this encounter
--- OUTSIDE RECORDS SUMMARY | 2024-10-26 08:23 | XMS_ITS | Encounter Summary ---
Author Organization [facility] Address [facility]. [place], [place] [address] [place] [address] Care Team Providers Care Ex[place]ior Machine Operator Name Role Phone Dennis Doran MD Primary Care Provider [phone] Joann Marquez-BC Unavailable [phone] Encounter Details Date Type Department Care Team (Late st Contact Info) Description 05/25/1995 Abstract [facility] CONVERSION [address] [place] [address] , Generic Conversion, Social History Tobacco Use [...] on filedocumented in this encounter Care Teams Excelsior Machine Operator Relationship Specialty Start Date End Date Dennis Doran MD PCP - General INTERNAL MEDICINE 02/28/17 10/23/23 Joann Marquez ANP-BC [address] [place] [address] [address] [place] [address] [place] Sample Case Porter NURSE PRACTITIONER 02/28/17 documented as of this encounter
--- OUTSIDE RECORDS SUMMARY | 2024-10-26 08:23 | XMS_ITS | Encounter Summary ---
Author Organization [facility] Address [facility]. [place], [place] [address] [place] [address] Care Team Providers Care Printing Roller Polisher Name Role Phone Dennis Doran MD Primary Care Provider [phone] Joann Marquez-BC Unavailable [phone] Encounter Details Date Type Department Care Team (Late st Contact Info) Description 09/28/2001 Abstract [facility] CONVERSION [address] [place] [address] , Generic Conversion, Social History Tobacco Use [...] on filedocumented in this encounter Care Teams Printing Roller Polisher Relationship Specialty Start Date End Date Dennis Doran MD PCP - General INTERNAL MEDICINE 02/28/17 10/23/23 Joann Marquez ANP-BC [address] [place] [address] [address] [place] [address] [place] Survey Researcher NURSE PRACTITIONER 02/28/17 documented as of this encounter
--- OUTSIDE RECORDS SUMMARY | 2024-10-26 08:23 | XMS_ITS | Encounter Summary ---
Author Organization [facility] Address [facility]. [place], [place] [address] [place] [address] Care Team Providers Care Priming Machine Operator Name Role Phone Dennis Doran MD Primary Care Provider [phone] Joann Marquez-BC Unavailable [phone] Encounter Details Date Type Department Care Team (Late st Contact Info) Description 08/31/1994 Abstract [facility] CONVERSION [address] [place] [address] , Generic Conversion, Social History Tobacco Use [...] on filedocumented in this encounter Care Teams Priming Machine Operator Relationship Specialty Start Date End Date Dennis Doran MD PCP - General INTERNAL MEDICINE 02/28/17 10/23/23 Joann Marquez ANP-BC [address] [place] [address] [address] [place] [address] [place] Preformer [employer]ated [employer] NURSE PRACTITIONER 02/28/17 documented as of this encounter
--- OUTSIDE RECORDS SUMMARY | 2024-10-26 08:23 | XMS_ITS | Encounter Summary ---
Author Organization [facility] Address [facility]. [place], [place] [address] [place] [address] Care Team Providers Care Shove Up Name Role Phone Dennis Doran MD Primary Care Provider [phone] Joann Marquez-BC Unavailable [phone] Encounter Details Date Type Department Care Team (Late st Contact Info) Description 04/09/1996 Abstract [facility] CONVERSION [address] [place] [address] , Generic Conversion, Social History Tobacco Use [...] on filedocumented in this encounter Care Teams Shove Up Relationship Specialty Start Date End Date Dennis Doran MD PCP - General INTERNAL MEDICINE 02/28/17 10/23/23 Joann Marquez ANP-BC [address] [place] [address] [address] [place] [address] [place] Prosthetic Assistant NURSE PRACTITIONER 02/28/17 documented as of this encounter
--- OUTSIDE RECORDS SUMMARY | 2024-10-26 08:23 | XMS_ITS | Encounter Summary ---
Author Organization [facility] Address [facility] [place], [place] [address] [place] [address] Care Team Providers Care Telecommunications Equipment Installer Name Role Phone Dennis Doran MD Primary Care Provider [phone] Joann Marquez-BC Unavailable [phone] Encounter Details Date Type Department Care Team (Late st Contact Info) Description 09/28/1993 Abstract [facility] CONVERSION [address] [place] [address] , Generic Conversion, Social History Tobacco Use [...] on filedocumented in this encounter Care Teams Telecommunications Equipment Installer Relationship Specialty Start Date End Date Dennis Doran MD PCP - General INTERNAL MEDICINE 02/28/17 10/23/23 Joann Marquez ANP-BC [address] [place] [address] [address] [place] [address] [place] Residential Program Manager NURSE PRACTITIONER 02/28/17 documented as of this encounter
--- OUTSIDE RECORDS SUMMARY | 2024-10-26 08:23 | XMS_ITS | Encounter Summary ---
Author Organization [facility] Address [facility] [place], [place] [address] [place] [address] Care Team Providers Care Media Liaison Officer Name Role Phone Dennis Doran MD Primary Care Provider [phone] Joann Marquez-BC Unavailable [phone] Encounter Details Date Type Department Care Team (Late st Contact Info) Description 12/29/1996 Abstract [facility] CONVERSION [address] [place] [address] , Generic Conversion, Social History Tobacco Use [...] on filedocumented in this encounter Care Teams Media Liaison Officer Relationship Specialty Start Date End Date Dennis Doran MD PCP - General INTERNAL MEDICINE 02/28/17 10/23/23 Joann Marquez ANP-BC [address] [place] [address] [address] [place] [address] [place] [employer] Counselor NURSE PRACTITIONER 02/28/17 documented as of this encounter
--- OUTSIDE RECORDS SUMMARY | 2024-10-26 08:35 | XMS_ITS | Clinical Summary ---
Author Organization [facility] Address [address] [address] Phone Care Team Providers Care Fishing Captain Name Role Phone Dennis Doran MD Primary Care Provider [phone] Allergies No known active allergies Medications Medication Sig Dispensed Refills Start Date End Date Status Amlodipine-Atorvast atin 10-40 mg tablet Take 1 Tablet by mouth daily. Active lisinopril (PRINIVIL) 20 mg tablet Take 20 mg by mouth daily. Active carvedilol (COREG) 25 mg tablet Take 25 mg by mouth 2 times daily with meals. Active INSULIN REGULAR, HUMAN (INSULIN PUMP) 100 unit/mL Solution Inject by subcutaneous injection. Active aspirin (GASTON CHEWABLE) 81 mg Tablet, Chewable Take 81 mg by mouth daily. Active esomeprazole (NEXIUM) 20 mg Capsule, Delayed Release(E.C.) Take 20 mg by mouth daily before breakfast. 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 Social History Tobacco Use Types Packs/Day Years Used Date Smoking Tobacco: Some Days Cigarettes 4.5 22 Tobacco Cessation:Ready to Q uit: No; Counseling Given: Yes Alcohol Use Standard Drinks/Week Comments Yes 0 (1 standard drink = 0.6 oz pur e alcohol) Sex and Gender Information Value Date Recorded Sex Assigned at Not on file Gender Identity Not on file Sexual Orientation Not on file Last Filed Vital Signs Vital Sign Reading Time Taken Comments Blood Pressure 120/70 09/21/2015 2:37 PM COMMUNITY RELATIONS OFFICER Pulse - - Temperature - - Respiratory Rate - - Oxygen Saturation - - Inhaled Oxygen Concentration - - Weight 86.2 kg (190 lb) 09/21/2015 2:37 PM COMMUNITY RELATIONS OFFICER Height 180.3 cm (5' 11 ) 09/21/2015 2:37 PM COMMUNITY RELATIONS OFFICER Body Mass Index 26.5 09/21/2015 2:37 PM COMMUNITY RELATIONS OFFICER Plan of Treatment Health Maintenance Due Date Last Done Comments DTAP/TDAP/TD VACCINES (1 - Tdap) 1992 HEPATITIS B VACCINES (1 of 3 - 19+ 3-dose series) 1992 COLORECTAL SCREENING 2018 Colorectal Cancer Screening 2018 FIT-DNA Q 3 years 2018 FIT/FOBT Q 1 year 2018 Flex Sig/CT Colonography Q 5 years 2018 ZOSTER VACCINE (1 of 2) 2023 INFLUENZA VACCINE (#1) 2024 PNEUMOCOCCAL VACCINE 0-64 YEARS Aged Out No longer eligible based on patient's age to complete this topic Care Teams Fishing Captain Relationship Specialty Start Date End Date Dennis Doran MD [address] [place] [phone] PCP - General Internal Medicine 09/21/15
--- OUTSIDE RECORDS SUMMARY | 2024-10-26 08:35 | XMS_ITS | Encounter Summary ---
Author Organization [facility] Address [address] [place] [address] Phone Care Team Providers Care Nuclear Equipment Test Engineer Name Role Phone Dennis Doran MD Primary Care Provider [phone] Encounter Details Date Type Department Care Team (Late st Contact Info) Description 05/08/2022 Telephone [facility] Nephrology and Hypertension [address] [facility], [address] [place] [address] Megan Alanis RN Social History Tobacco Use Types Packs/Day Years Used Date Smoking Tobacco: Every Day Cigarettes Smokeless Tobacco: Never Alcohol Use Standard Drinks/Week Comments Yes 0 (1 standard drink = 0.6 oz pur e alcohol) Sex and Gender Information Value Date Recorded Sex Assigned at Not on file Gender Identity Not on file Sexual Orientation Not on file documented as of this encounter Miscellaneous Notes * Telephone Encounter - Megan Alanis RN - 05/08/2022 10:03 AM CDT Have LMOR On Sunday (jose carlos)and today for pt to call office to schedule an ALONDRA appt as requested by PCP office. No return call as of yet . Called PCP Office requesting an alternate number or emergency contact-per PCP office they do not have another phone number. documented in this encounter Plan of Treatment Not on file documented as of this encounter Visit Diagnoses Not on filedocumented in this encounter Care Teams Nuclear Equipment Test Engineer Relationship Specialty Start Date End Date Dennis Doran MD [address] [place] [phone] PCP - General Internal Medicine 03/11/20 documented as of this encounter
--- OUTSIDE RECORDS SUMMARY | 2024-10-26 08:35 | XMS_ITS | Encounter Summary ---
Author Organization [facility] Alesha bustos Address [address] [place] [phone] Phone Care Team Providers Care Evaporative Cooler Installer Name Role Phone Dennis Doran MD Primary Care Provider [phone] Reason for Referral * (Routine) - Closed Specialty Diagnoses / Procedures Referred By Contac t Referred To Contact Diagnoses Chronic kidney disease stage 4 (CMS-HCC) Benign hypertension with chronic kidney disease Diabetes mellitus with renal manifestations (CMS-HCC) Other proteinuria Procedures Ultrasound renal complete Seda Rajput MD [address] [facility], [address] [place] [address] Referral ID Status Reason Start Date Expiration Date Visits Re quested Visits Authorized [id number] Closed 05/10/2022 11/06/2022 1 1 Encounter Details Date Type Department Care Team (Late st Contact Info) Description 05/10/2022 10:45 AM CDT Office Visit [facility] Nephrology and Hypertension [address] [facility] [address], [address] [place] [address] Seda Rajput MD [address] [facility], [address] [place] [address] Chronic kidney disease stage 4 (CMS-HCC); Benign hypertension with chronic kidney disease; Diabetes mellitus with renal manifestations (CMS-HCC); Other proteinuria Social History Tobacco Use Types Packs/Day Years Used Date Smoking Tobacco: Every Day Cigarettes Smokeless Tobacco: Never Tobacco Cessation:Ready to Q uit: No; Counseling [...] Sign Reading Time Taken Comments Blood Pressure 136/80 05/10/2022 10:47 AM CDT Pulse - - Temperature 37.3 ??C (99.2 ??F) 05/10/2022 10:47 AM C DT Respiratory Rate 18 05/10/2022 10:47 AM CDT Oxygen Saturation - - Inhaled Oxygen Concentration - - Weight 88.5 kg (195 lb) 05/10/2022 10:47 AM CDT Height 180.3 cm (5' 11 ) 05/10/2022 10:47 AM CDT Body Mass Index 27.2 05/10/2022 10:47 AM CDT documented in this encounter Progress Notes * Seda Rajput MD - 05/10/2022 10:45 AM CDT FOLLOW-UP OFFICE VISIT Patient: Tank Kowalski Birthdate: 1975 PCP: Dennis Doran MD Visit Date: 05/10/2022 INTERIM HISTORY Tank Kowalski here for follow-up regarding his chronic kidney disease. He was seen about 2 years ago for initial evaluation of this issue but never returned for follow-up. He presents today at the behest of his PCP for ongoing CKD management given recent blood/urine testing. Since last seen, he appears to be doing reasonably well. No apparent distress or concerns voiced atthis time. No issues or problems to report on this clinic visit. Past medical history, social history and family history has not changed since previous visit. ALLERGIES Allergies Allergen Reactions ??? Guaifenesin Swelling ??? Simvastatin Myalgias MEDICATIONS Current Outpatient Medications: ??? ergocalciferol (VITAMIN D-2) 1.25 MG (49751 UT) capsule, Take 50,000 Units by mouth every 7 (seven) days, Disp: , Rfl: ??? Icosapent Ethyl 1 g capsule, Take 2 g by mouth 2 times daily, Disp: , Rfl: ??? isosorbide mononitrate (IMDUR) 30 MG 24 hr tablet, Take 30 mg by mouth daily, Disp: , Rfl: ??? pantoprazole (PROTONIX) 40 MG EC tablet, Take 40 mg by mouth 2 times daily, Disp: , Rfl: ??? venlafaxine XR (EFFEXOR-XR) 75 MG 24 hr capsule, Take 150 mg by mouth daily, Disp: , Rfl: ??? ALPRAZolam (XANAX) 0.25 MG tablet, Take 0.25 mg by mouth 1 (one) time each day if needed, Disp:, Rfl: ??? amLODIPine (NORVASC) 10 MG tablet, TK 1 T PO QD, Disp: , Rfl: ??? atorvastatin (LIPITOR) 80 MG tablet, , Disp: , Rfl: ??? carvedilol (COREG) 25 MG tablet, TK 1 T PO BID, Disp: , Rfl: ??? clopidogrel (PLAVIX) 75 MG tablet, , Disp: , Rfl: ??? Continuous Blood Gluc Sensor (SintecMediaStyle Mita 2 Sensor) [facility], USE DIRECTED TO CHECK FOUR TIMES DAILY, Disp: , Rfl: ??? HumaLOG 100 UNIT/ML solution, ADMINISTER 55 UNITS UNDER THE SKIN THREE TIMES DAILY, Disp: , Rfl: ??? levothyroxine (SYNTHROID) 25 MCG tablet, TAKE 1 TABLET BY MOUTH 1 HOUR BEFORE BREAKFAST, Disp: , Rfl: ??? lisinopril (PRINIVIL) 2.5 MG tablet, Take 2.5 mg by mouth 1 (one) time each day, Disp: , Rfl: ??? mupirocin (BACTROBAN) 2 % ointment, APPLY TOPICALLY TO THE AFFECTED AREA TWICE DAILY FOR 5 TO 7DAYS, Disp: , Rfl: ??? nitroglycerin (NITROSTAT) 0.4 MG SL tablet, Place 0.4 mg under the tongue once daily as needed,Disp: , Rfl: ??? OXYCONTIN 20 MG 12 hr abuse-deterrent tablet, TK 1 T PO QD IF NEEDED, Disp: , Rfl: ??? pregabalin (LYRICA) 75 MG capsule, Take 75 mg by mouth every night, Disp: , Rfl: ??? venlafaxine 75 MG 24 hr tablet, TAKE 2 CAPSULES BY MOUTH DAILY. APPOINTMENT NEEDED, Disp: , Rfl: ??? VIIBRYD 40 MG tablet tablet, TK 1 T PO QD, Disp: , Rfl: REVIEW OF SYSTEMS Constitutional: No fever, weight loss or gain, no fatigue. No loss of appetite. Cardiovascular: No chest pain. No Orthopnea, PND. Respiratory: No cough, no sputum production, no SOB or DOTSON. : No dysuria or gross hematuria. No frequency or urgency. No nocturia. Skin: No rash or itching. VITALS BP 136/80 (BP Location: Right arm, Patient Position: Sitting) Temp 99.2 ??F (37.3 ??C) Resp 18 Ht 5' 11 (1.803 m) Wt 195 lb (88.5 kg) BMI 27.20 kg/m?? BSA 2.11 m?? PHYSICAL EXAM General: Comfortable and in no acute distress Cardiovascular: Normal S1, S2; no rub Respiratory: Clear bilaterally Abdominal: Soft, non-tender, non-distended; positive bowel sounds Extremities: No cyanosis, clubbing, or edema Skin: Warm and dry RECENT LABS/IMAGING Lab Results Component Value Date BUN 37 04/26/2022 CREATININE 2.59 04/26/2022 EGFRAA 32 04/26/2022 EGFR 28 04/26/2022 NA 136 04/26/2022 K 4.5 04/26/2022 CL 105 04/26/2022 CO2 22 04/26/2022 CA 9.0 04/26/2022 ALBUMIN 3.7 04/26/2022 GLUCOSE 200 04/26/2022 ALBCREA 2,912 04/26/2022 HGBA1C 8.7 02/26/2020 02/14/19 Renal U/S: right kidney 12.5cm, left kidney 13.7cm, no hydronephrosis Creatinine, Serum/Plasma Date Value Ref Range Status 04/26/2022 2.59 mg/dL Final 01/06/2022 2.29 mg/dL Final 10/28/2021 2.29 mg/dL Final 09/20/2021 2.0 mg/dL Final 02/26/2020 1.94 mg/dL Final 02/10/2019 1.49 mg/dL Final ASSESSMENT 1. Chronic kidney disease stage 4 (CMS-HCC) 2. Benign hypertension with chronic kidney disease 3. Diabetes mellitus with renal manifestations (CMS-HCC) 4. Other proteinuria DISCUSSION/PLAN Tank has chronic kidney disease most likely secondary to his diabetes, hypertension, and vascular disease (hyperlipidemia, coronary artery disease, and smoking). Unfortunately, his kidney disease has progressed in the last couple of years as evidenced by his blood work. When I saw two years ago, he never did the extensive serological testing I had ordered or the renal ultrasound either. It is probably prudent to do these testing just to make sure we are notmissing anything. To help reduce the rate of kidney deterioration: Control BP: follow trend Control DM: monitor A1c Control LDL cholesterol: on statin Control Intact PTH: will check Use JAD/ARB: on lisinopril Low protein diet: discussed Benefits of slowing renal deterioration reviewed with patient in laymen's terms. Lowering blood pressure, controlling diabetes, and controlling cholesterol reduce insults to the kidney. Low protein diet helps take excess workload off of the kidney. JAD/ARB help to decrease pressure in kidney and also decrease hormones that cause scar formation. Long and extensive discussion (> 20 minutes) with patient regarding all of the above information. Blood Pressure for this visit is 136/80. The follow up plan to address blood pressure is follow trend. Body mass index is 27.2 kg/m??. Follow up plan to address BMI is diet/exercise as tolerated. Follow up plan to address tobacco use is ongoing counseling. Continue current medications Repeat labs prior to next visit Renal ultrasound SSobia Rajput MD documented in this encounter Plan of Treatment Scheduled Orders Name Type Priority Associated Diagnoses Orde r Schedule Ultrasound renal complete Imaging Routine Chronic kidney disease stage 4 ([facility]) Benign hypertension with chronic kidney disease Diabetes mellitus with renal manifestations ([facility]) Other proteinuria Expected: 06/10/2022 (Approximate), Expires: 05/10/2023 Renal Function Panel (RFP) Lab Routine Chronic kidney disease stage 4 ([facility]) Benign hypertension with chronic kidney disease Diabetes mellitus with renal manifestations ([facility]) Other proteinuria 1 Occurrences starting 05/10/2022 until 05/10/2023 Total Protein w/ Creatinine, Urine, Random Lab Routine Chronic kidney disease stage 4 ([facility]) Benign hypertension with chronic kidney disease Diabetes mellitus with renal manifestations ([facility]) Other proteinuria 1 Occurrences starting 05/10/2022 until 05/10/2023 PTH Intact w/o Calcium, Serum Lab Routine Chronic kidney disease stage 4 ([facility] Benign hypertension with chronic kidney disease Diabetes mellitus with renal manifestations ([facility] Other proteinuria 1 Occurrences starting 05/10/2022 until 05/10/2023 Protein Electrophoresis, Serum Lab Routine Chronic kidney disease stage 4 ([facility] Benign hypertension with chronic kidney disease Diabetes mellitus with renal manifestations ([facility]) Other proteinuria 1 Occurrences starting 05/10/2022 until 05/10/2023 Protein Electrophoresis, Urine, Random Lab Routine Chronic kidney disease stage 4 ([facility]) Benign hypertension with chronic kidney disease Diabetes mellitus with renal manifestations ([facility]) Other proteinuria 1 Occurrences starting 05/10/2022 until 05/10/2023 QuestAssureD? ? 25-Hydroxyvitamin D (D2, D3) Lab Routine Chronic kidney disease stage 4 ([facility]) Benign hypertension with chronic kidney disease Diabetes mellitus with renal manifestations ([facility] Other proteinuria 1 Occurrences starting 05/10/2022 until 05/10/2023 Sodium, Urine Lab Routine Chronic kidney disease stage 4 ([facility] Benign hypertension with chronic kidney disease Diabetes mellitus with renal manifestations ([facility] Other proteinuria 1 Occurrences starting 05/10/2022 until 05/10/2023 dsDNA AB, Serum Lab Routine Chronic kidney disease stage 4 ([facility]) Benign hypertension with chronic kidney disease Diabetes mellitus with renal manifestations ([facility]) Other proteinuria 1 Occurrences starting 05/10/2022 until 05/10/2023 ANCA Screen w/ MPO and PR3 w/ Reflex to Titer Lab Routine Chronic kidney disease stage 4 ([facility] Benign hypertension with chronic kidney disease Diabetes mellitus with renal manifestations ([facility]) Other proteinuria 1 Occurrences starting 05/10/2022 until 05/10/2023 Antinuclear Antibodies (LETY), IFA w/ Refl Titer and Pattern Lab Routine Chronic kidney disease stage 4 ([facility] Benign hypertension with chronic kidney disease Diabetes mellitus with renal manifestations ([facility] Other proteinuria 1 Occurrences starting 05/10/2022 until 05/10/2023 Complement C3 + C4 Lab Routine Chronic kidney disease stage 4 ([facility] Benign hypertension with chronic kidney disease Diabetes mellitus with renal manifestations ([facility] Other proteinuria 1 Occurrences starting 05/10/2022 until 05/10/2023 Glomerular Basement Membrane Antibody (IGG), Serum Lab Routine Chronic kidney disease stage 4 (CMS-HCC) Benign hypertension with chronic kidney disease Diabetes mellitus with renal manifestations ([facility]) Other proteinuria 1 Occurrences starting 05/10/2022 until 05/10/2023 documented as of this encounter Procedures Procedure Name Priority Date/Time Associated Diagnosis Comments ALBUMIN / CREATININE RATIO, RANDOM, URINE Routine 04/26/2022 RENAL FUNCTION PANEL (RFP) Routine 04/26/2022 RENAL FUNCTION PANEL (RFP) Routine 01/06/2022 RENAL FUNCTION PANEL (RFP) Routine 10/28/2021 ALBUMIN / CREATININE RATIO, RANDOM, URINE Routine 09/20/2021 RENAL FUNCTION PANEL (RFP) Routine 09/20/2021 documented in this encounter Results * Albumin/Creatinine Ratio, Random, Urine (04/26/2022) Albumin/Creatin ine, Urine 2,912 EXTERNAL LAB (NON-INTERFACE D) Urine (Urine, Clean Catch) Historical Provider LAB URINE ORDERAB LES EXTERNAL LAB (NON-INTERFACED) * Renal Function Panel (RFP) (04/26/2022) Albumin, Serum/Plasma 3.7 g/L EXTERNAL LAB (NON-INTERFACE D) Calcium, Serum/Plasma 9.0 mg/dL EXTERNAL LAB (NON-INTERFACE D) Carbon dioxide CO2), total, Serum/Plasma 22 mmol/L EXTERNAL LAB (NON-INTERFACE D) Chloride, Serum/Plasma 105 mmol/L EXTERNAL LAB (NON-INTERFACE D) Creatinine, Serum/Plasma 2.59 mg/dL EXTERNAL LAB (NON-INTERFACE D) Glucose, Serum/Plasma 200 mg/dL EXTERNAL LAB (NON-INTERFACE D) Potassium, Serum/Plasma 4.5 mmol/L EXTERNAL LAB (NON-INTERFACE D) Sodium, Serum/Plasma 136 mmol/L EXTERNAL LAB (NON-INTERFACE D) Urea nitrogen, Serum/Plasma (BUN) 37 mg/dL EXTERNAL LAB (NON-INTERFACE D) eGFR, non 28 mL/min EXTERNAL LAB (NON-INTERFACE D) eGFR, 32 mL/min EXTERNAL LAB (NON-INTERFACE D) Blood (Blood, Venous) Historical Provider MD LAB BLOOD ORDERAB LES Performing Organization Address [facility] Co de Phone Number EXTERNAL LAB (NON-INTERFACED) * Renal Function Panel (RFP) (01/06/2022) Creatinine, Serum/Plasma 2.29 mg/dL EXTERNAL LAB (NON-INTERFACE D) Blood (Blood, Venous) Historical Provider MD LAB BLOOD ORDERAB LES Performing Organization Address [facility] de Phone Number EXTERNAL LAB (NON-INTERFACED) * Renal Function Panel (RFP) (10/28/2021) Creatinine, Serum/Plasma 2.29 mg/dL EXTERNAL LAB (NON-INTERFACE D) Blood (Blood, Venous) Historical Provider MD LAB BLOOD ORDERAB LES Performing Organization Address [facility] de Phone Number EXTERNAL LAB (NON-INTERFACED) * Albumin/Creatinine Ratio, Random, Urine (09/20/2021) Albumin/Creatin ine, Urine 4,070 EXTERNAL LAB (NON-INTERFACE D) Urine (Urine, Clean Catch) Historical Provider MD LAB URINE ORDERAB LES Performing Organization Address [facility] Co de Phone Number EXTERNAL LAB (NON-INTERFACED) * Renal Function Panel (RFP) (09/20/2021) Creatinine, Serum/Plasma 2.0 mg/dL EXTERNAL LAB (NON-INTERFACE D) Blood (Blood, Venous) Historical Provider MD LAB BLOOD ORDERAB LES Performing Organization Address [facility] Co de Phone Number EXTERNAL LAB (NON-INTERFACED) documented in this encounter Visit Diagnoses Diagnosis Chronic kidney disease stage 4 (CMS-HCC) Benign hypertension with chronic kidney disease Diabetes mellitus with renal manifestations (CMS-HCC) Other proteinuria documented in this encounter Care Teams Evaporative Cooler Installer Relationship Specialty Start Date End Date Dennis Doran MD [address] [place] [phone] PCP - General Internal Medicine 03/11/20 documented as of this encounter
--- OUTSIDE RECORDS SUMMARY | 2024-10-26 08:35 | XMS_ITS | Encounter Summary ---
Author Organization [facility] Address [address] [place] [address] Phone Care Team Providers Care Automatic Nailing Machine Operator Name Role Phone Dennis Doran MD Primary Care Provider [phone] Encounter Details Date Type Department Care Team (Late st Contact Info) Description 04/01/2020 10:30 AM CDT Office Visit [facility] Nephrology and Hypertension [address] [place] [address], [address] [place] [address] Seda Rajput MD [address] [facility], [address] [place] [address] Chronic kidney disease stage 3 (CMS-HCC); Diabetes mellitus with renal manifestations (CMS-HCC); Hypertensive renal disease; Other proteinuria Social History Tobacco Use Types [...] Sign Reading Time Taken Comments Blood Pressure 136/72 04/01/2020 10:49 AM CDT Pulse - - Temperature 37.6 ??C (99.7 ??F) 04/01/2020 10:49 AM C DT Respiratory Rate 18 04/01/2020 10:49 AM CDT Oxygen Saturation - - Inhaled Oxygen Concentration - - Weight 91.2 kg (201 lb) 04/01/2020 10:49 AM CDT Height 180.3 cm (5' 11 ) 04/01/2020 10:49 AM CDT Body Mass Index 28.03 04/01/2020 10:49 AM CDT documented in this encounter Progress Notes * Seda Rajput MD - 04/01/2020 10:30 AM CDT NEW PATIENT CONSULTATION Patient: Tank Kowalski Birthdate: 1975 Referring Provider: Dennis Doran MD PCP: Dennis Doran MD Visit Date: 04/01/2020 CHIEF COMPLAINT Chronic kidney disease HISTORY OF PRESENT ILLNESS Tank Kowalski is a 44 y.o. male with a past medical history as outlined below who presents for further evaluation of worsening kidney disease. The patient recently saw his primary care physician about a month ago for routine follow-up of his chronic medical issues and problems. Blood work at that time demonstrated his creatinine to be worsethan what was previously and hence renal referral/consultation was requested for further evaluationof this issue. A year ago the patient's creatinine was around 1.49 mg/dL and repeat tests this year demonstrated his creatinine up to 1.94mg/dl. He otherwise not have any other critical electrolyte abnormalities tospeak of. With regard to risk factors for kidney disease, the patient has several. He has had hypertension for 30 years and diabetes for the same amount of time with associated complications of diabetic retinopathy and neuropathy. He also has known coronary artery disease with stent placement as well as hyperlipidemia. No reported history of liver disease, pulmonary disorders (COPD, obstructive sleep apnea, pulmonary hypertension), congestive heart failure, or any autoimmune disorders. He has no history of recent hospitalizations, IV contrast/dye exposure, or new medications with regard to NSAIDs or antibiotics. He reports no issues with hematuria, dysuria, nephrolithiasis, CVA/flank pain or trauma, foamy urine, frequent urinary tract infections, or urinary incontinence. He denies any other systemic issues/symptoms with regard to fevers, chills, blurry vision, headaches, abdominal pain, nausea, vomiting, diarrhea, chest pain, shortness of breath, palpitations, dizziness, or lightheadedness. Currently, on this clinic visit, he appears in no distress. PAST MEDICAL HISTORY Diagnosis ??? Arthritis ??? Cerebrovascular accident (CMS-HCC) ??? Chronic kidney disease ??? Coronary arteriosclerosis ??? Diabetes mellitus (CMS-HCC) ??? Hyperlipidemia ??? Hypertension ??? Neuropathy ALLERGIES Allergen Reactions ??? Guaifenesin Swelling ??? Simvastatin Myalgias MEDICATIONS Current Outpatient Medications: ??? esomeprazole (NexIUM) [address] capsule, Take 1 tablet by mouth daily, Disp: , Rfl: ??? nitroglycerin (NITROSTAT) 0.4 MG SL tablet, Place 0.4 mg under the tongue once daily as needed,Disp: , Rfl: ??? amLODIPine (NORVASC) 10 MG tablet, TK 1 T PO QD, Disp: , Rfl: ??? atorvastatin (LIPITOR) 40 MG tablet, TK 1 T PO HS, Disp: , Rfl: ??? carvedilol (COREG) 25 MG tablet, TK 1 T PO BID, Disp: , Rfl: ??? clopidogrel (PLAVIX) 75 MG tablet, , Disp: , Rfl: ??? HUMALOG 100 UNIT/ML injection, , Disp: , Rfl: ??? OXYCONTIN 20 MG 12 hr abuse-deterrent tablet, TK 1 T PO QD IF NEEDED, Disp: , Rfl: ??? pregabalin (LYRICA) 50 MG capsule, TK 1 C PO BID, Disp: , Rfl: ??? VIIBRYD 40 MG tablet tablet, TK 1 T PO QD, Disp: , Rfl: SOCIAL HISTORY Tobacco Use ??? Smoking status: Current Every Day Smoker Packs/day: 2.00 ??? Smokeless tobacco: Never Used Substance Use Topics ??? Alcohol use: Yes ??? Drug use: Not on file FAMILY HISTORY Problem Relation ??? Coronary artery disease Mother ??? Myocardial infarction Mother ??? Heart valve disorder Sister REVIEW OF SYSTEMS Constitutional: No fever, weight loss or gain, no fatigue. No loss of appetite. Eyes: No sudden change in vision, eye pain, or light sensitivity ENMT: No ringing in ear, no nasal drainage. Cardiovascular: No chest pain. No Orthopnea, PND. Respiratory: No cough, no sputum production, no SOB or DOTSON. GI: No abdominal pain. No tenderness or masses. : No dysuria or gross hematuria. No frequency or urgency. No nocturia. Musculoskeletal: No weakness, cramps, or muscle aches. No joint pain. Skin: No rash or itching. Neurologic: No weakness, tingling, or numbness in extremities. No seizures. Psychiatric: Not depressed, no suicidal ideation, generally satisfied with life. Endocrine: No excessive thirst or hunger. Not excessively hot or cold. Hematologic: No abnormal bruising or bleeding. Immunologic: No seasonal allergy/hay fever, no abnormal rashes, no excessive itching. VITALS BP 136/72 (BP Location: Right arm, Patient Position: Sitting) Temp 99.7 ??F (37.6 ??C) Resp 18 Ht 5' 11 (1.803 m) Wt 201 lb (91.2 kg) BMI 28.03 kg/m?? BSA 2.14 m?? PHYSICAL EXAM Head: Atraumatic, normocephalic Eyes: PERRLA, anicteric sclerae, moist conjuntivae ENMT: Moist mucous membranes, no oral lesions or exudates Neck: Supple, no tenderness or masses Cardiovascular: Normal S1, S2; no rub Respiratory: Clear bilaterally Abdominal: Soft, non-tender, non-distended; positive bowel sounds Skin: No rash, bruising, or excoriations Extremities: No cyanosis, clubbing, or edema Functional: Comfortable and in no acute distress Cognitive: Cranial nerves 2-12 intact, no focal musculoskeletal or sensory deficits noted Psychological: Appropriate affect, alert and oriented to person, place and time RECENT LABS/IMAGES Lab Results Component Value Date BUN 22 02/26/2020 CREATININE 1.94 02/26/2020 EGFRAA 47 02/26/2020 EGFR 40 02/26/2020 NA 138 02/26/2020 K 3.8 02/26/2020 CL 106 02/26/2020 CO2 24 02/26/2020 CA 8.6 02/26/2020 ALBUMIN 3.5 02/26/2020 GLUCOSE 304 02/26/2020 ALBCREA 3,255 02/26/2020 HGBA1C 8.7 02/26/2020 Creatinine, Serum/Plasma Date Value Ref Range Status 02/26/2020 1.94 mg/dL Final 02/10/2019 1.49 mg/dL Final 02/14/19 Renal U/S: right kidney 12.5cm, left kidney 13.7cm, no hydronephrosis ASSESSMENT AND PLAN 1. Chronic kidney disease stage 3 (CMS-HCC) 2. Diabetes mellitus with renal manifestations (CMS-HCC) 3. Hypertensive renal disease 4. Other proteinuria Tank has chronic kidney disease most likely secondary to his diabetes, hypertension, and vascular disease (hyperlipidemia, coronary artery disease, and smoking). His kidney disease has progressed and the last year as evidenced by his blood work. However, I do not want to discount the possibility that could be other factors playing a role with regard to this change in his kidney function. Hence, further investigation is warranted. With this in mind, I will check a renal ultrasound for better assessment of the size and structure of his kidneys and rule out any anatomical abnormalities (as well as to compare to his previous renal ultrasound), check some baseline serological studies to rule out any instrinsic, infiltrative, or inflammatory disorder, and re-assess for proteinuria with a random urine protein to creatinine ratio. I will review the above results with the patient on her next clinic visit and determine our next course of action at that time. Blood Pressure for this visit is 136/72. The follow up plan to address blood pressure is follow trend. Body mass index is 28.03 kg/m??. Follow up plan to address BMI is diet and exercise. Follow up plan to address tobacco use is ongoing counseling. Thank you for allowing me to participate in the care of your patient. Zena Rajput MD documented in this encounter Plan of Treatment Scheduled Orders Name Type Priority Associated Diagnoses Orde r Schedule ANCA SCREEN W/ REFLEX TO TITER Lab Routine Chronic kidney disease stage 3 ([facility]) Diabetes mellitus with renal manifestations ([facility]) Hypertensive renal disease Other proteinuria 1 Occurrences starting 04/01/2020 until 04/01/2021 ANTINUCLEAR ANTIBODIES (LETY), IFA W/ REFL TITER AND PATTERN Lab Routine Chronic kidney disease stage 3 ([facility]) Diabetes mellitus with renal manifestations ([facility]) Hypertensive renal disease Other proteinuria 1 Occurrences starting 04/01/2020 until 04/01/2021 COMPLEMENT C3 + C4 Lab Routine Chronic kidney disease stage 3 ([facility]) Diabetes mellitus with renal manifestations ([facility]) Hypertensive renal disease Other proteinuria 1 Occurrences starting 04/01/2020 until 04/01/2021 DSDNA AB, SERUM Lab Routine Chronic kidney disease stage 3 ([facility]) Diabetes mellitus with renal manifestations ([facility]) Hypertensive renal disease Other proteinuria 1 Occurrences starting 04/01/2020 until 04/01/2021 GLOMERULAR BASEMENT MEMBRANE ANTIBODY (IGG), SERUM Lab Routine Chronic kidney disease stage 3 ([facility]) Diabetes mellitus with renal manifestations ([facility]) Hypertensive renal disease Other proteinuria 1 Occurrences starting 04/01/2020 until 04/01/2021 TOTAL PROTEIN W/ CREATININE, URINE, RANDOM Lab Routine Chronic kidney disease stage 3 ([facility]) Diabetes mellitus with renal manifestations ([facility]) Hypertensive renal disease Other proteinuria 1 Occurrences starting 04/01/2020 until 04/01/2021 SODIUM, URINE Lab Routine Chronic kidney disease stage 3 ([facility]) Diabetes mellitus with renal manifestations ([facility]) Hypertensive renal disease Other proteinuria 1 Occurrences starting 04/01/2020 until 04/01/2021 EOSINOPHIL, URINE Lab Routine Chronic kidney disease stage 3 ([facility]) Diabetes mellitus with renal manifestations ([facility]) Hypertensive renal disease Other proteinuria 1 Occurrences starting 04/01/2020 until 04/01/2021 PROTEIN ELECTROPHORESIS, URINE, RANDOM Lab Routine Chronic kidney disease stage 3 ([facility]) Diabetes mellitus with renal manifestations ([facility]) Hypertensive renal disease Other proteinuria 1 Occurrences starting 04/01/2020 until 04/01/2021 PROTEIN ELECTROPHORESIS, SERUM Lab Routine Chronic kidney disease stage 3 ([facility]) Diabetes mellitus with renal manifestations ([facility]) Hypertensive renal disease Other proteinuria 1 Occurrences starting 04/01/2020 until 04/01/2021 RENAL FUNCTION PANEL (RFP) Lab Routine Chronic kidney disease stage 3 ([facility]) Diabetes mellitus with renal manifestations ([facility]) Hypertensive renal disease Other proteinuria 1 Occurrences starting 04/01/2020 until 04/01/2021 documented as of this encounter Procedures Procedure Name Priority Date/Time Associated Diagnosis Comments ALBUMIN / CREATININE RATIO, RANDOM, URINE Routine 02/26/2020 RENAL FUNCTION PANEL (RFP) Routine 02/26/2020 HEMOGLOBIN A1C Routine 02/26/2020 RENAL FUNCTION PANEL (RFP) Routine 02/10/2019 documented in this encounter Results * Albumin/Creatinine Ratio, Random, Urine (02/26/2020) Albumin/Creatin ine, Urine 3,255 EXTERNAL LAB (NON-INTERFACE D) Urine (Urine, Clean Catch) Historical Provider MD LAB URINE ORDERAB LES EXTERNAL LAB (NON-INTERFACED) * Renal Function Panel (RFP) (02/26/2020) Albumin, Serum/Plasma 3.5 g/L EXTERNAL LAB (NON-INTERFACE D) Calcium, Serum/Plasma 8.6 mg/dL EXTERNAL LAB (NON-INTERFACE D) Carbon dioxide CO2), total, Serum/Plasma 24 mmol/L EXTERNAL LAB (NON-INTERFACE D) Chloride, Serum/Plasma 106 mmol/L EXTERNAL LAB (NON-INTERFACE D) Creatinine, Serum/Plasma 1.94 mg/dL EXTERNAL LAB (NON-INTERFACE D) Glucose, Serum/Plasma 304 mg/dL EXTERNAL LAB (NON-INTERFACE D) Potassium, Serum/Plasma 3.8 mmol/L EXTERNAL LAB (NON-INTERFACE D) Sodium, Serum/Plasma 138 mmol/L EXTERNAL LAB (NON-INTERFACE D) Urea nitrogen, Serum/Plasma (BUN) 22 mg/dL EXTERNAL LAB (NON-INTERFACE D) eGFR, non 40 mL/min EXTERNAL LAB (NON-INTERFACE D) eGFR, 47 mL/min EXTERNAL LAB (NON-INTERFACE D) Blood (Blood, Venous) Historical Provider LAB BLOOD ORDERAB LES Performing Organization Address City/[facility]/ZIP Co de Phone Number EXTERNAL LAB (NON-INTERFACED) * Hemoglobin A1c, Serum (02/26/2020) Hemoglobin A1c/Hemoglobin, total, Blood 8.7 % EXTERNAL LAB (NON-INTERFACE D) Blood (Blood, Venous) Historical Provider MD LAB BLOOD ORDERAB LES EXTERNAL LAB (NON-INTERFACED) * Renal Function Panel (RFP) (02/10/2019) Creatinine, Serum/Plasma 1.49 mg/dL EXTERNAL LAB (NON-INTERFACE D) Blood (Blood, Venous) Historical Provider MD LAB BLOOD ORDERAB LES Performing Organization Address [facility]/State/ZIP Co de Phone Number EXTERNAL LAB (NON-INTERFACED) documented in this encounter Visit Diagnoses Diagnosis Chronic kidney disease stage 3 ([facility]) Diabetes mellitus with renal manifestations ([facility]) Hypertensive renal disease Other proteinuria documented in this encounter Care Teams Automatic Nailing Machine Operator Relationship Specialty Start Date End Date Dennis Doran MD [address] [place] [address] PCP - General Internal Medicine 03/11/20 documented as of this encounter
--- OUTSIDE RECORDS SUMMARY | 2024-10-26 08:35 | XMS_ITS | Encounter Summary ---
Author Organization [facility] Address [address] [place] [address] Care Team Providers Care Web Publisher Name Role Phone Dennis Doran MD Primary Care Provider Reason for Visit * Reason Comments Other infertility * Eval and Treat (Routine) - Closed Specialty Diagnoses / Procedures Referred By Contac t Referred To Contact Urology Diagnoses DR Dias referred from [facility], pt does not ejactulate, trying to get , no testing has been done, coventry ins thru pts work/union Procedures OFFICE VISIT NEW PATIENT Dennis Doran MD [address] [facility] [address] [place] [address] Freddy Hughes MD [address] [facility] [address] [place] [address] Referral ID Status Reason Start Date Expiration Date Visits Re quested Visits Authorized [id number] Closed 09/21/2015 09/21/2015 1 1 Encounter Details Date Type Department Care Team (Late st Contact Info) Description 09/21/2015 2:20 PM DATABASE ARCHITECT Office Visit [facility] - [place] [address] [facility] [address] [place] [id number] Freddy Hughes MD [address] [facility] [address] [place] [address] Other ejaculatory dysfunction (Primary Dx); Impotence; Insulin dependent diabetes mellitus Social History Tobacco Use Types Packs/Day Years [...] Comments Blood Pressure 120/70 09/21/2015 2:37 PM DATABASE ARCHITECT Pulse - - Temperature - - Respiratory Rate - - Oxygen Saturation - - Inhaled Oxygen Concentration - - Weight 86.2 kg (190 lb) 09/21/2015 2:37 PM DATABASE ARCHITECT Height 180.3 cm (5' 11 ) 09/21/2015 2:37 PM DATABASE ARCHITECT Body Mass Index 26.5 09/21/2015 2:37 PM DATABASE ARCHITECT documented in this encounter Progress Notes * Freddy Hughes MD - 09/22/2015 11:25 AM CST 09/22/2015 CHIEF COMPLAINT: Chief Complaint Patient presents with ??? Other infertility SUBJECTIVE: Tank Kowalski is a 40 y.o. male who is having difficulty with infertility. He and his have been trying for about 3 years without success. She is 35. She has a 1 child with a previous marriage. He has one child. They have been seen at [facility] and are considering options including IVF The patient has difficulty with diabetes and has a significant cardiac history. He is on insulin. He has cardiac stents and is being evaluated and may need angioplasty and stenting again. He is on Brilanta blood thinner related to cardiac history The patient has a 20 year history of diabetes. He has a long history of worsening erectile dysfunction He has tried Levitra and Viagra but both cause significant palpitations and heart racing. He is interested in other options Patient Active Problem List Diagnosis Date Noted ??? Impotence 09/22/2015 ??? Other ejaculatory dysfunction 09/22/2015 ??? Insulin dependent diabetes mellitus 09/22/2015 Current Outpatient Prescriptions Medication Sig Dispense Refill ??? Amlodipine-Atorvastatin 10-40 mg tablet Take 1 Tablet by mouth daily. ??? lisinopril (PRINIVIL) 20 mg tablet Take 20 mg by mouth daily. ??? carvedilol (COREG) 25 mg tablet Take 25 mg by mouth 2 times daily with meals. ??? INSULIN REGULAR, HUMAN (INSULIN PUMP) 100 unit/mL Solution Inject by subcutaneous injection. ??? aspirin (GASTON CHEWABLE) 81 mg Tablet, Chewable Take 81 mg by mouth daily. ??? esomeprazole (NEXIUM) 20 mg Capsule, Delayed Release(E.C.) Take 20 mg by mouth daily before breakfast. No current facility-administered medications for this visit. No Known Allergies Past Surgical History Procedure Laterality Date ??? Hx vascular procedure other ??? Hx tonsillectomy Family History Problem Relation Age of Onset ??? Family history unknown: Yes History Social History ??? Marital Status: Spouse Name: N/A Number of Children: N/A ??? Years of Education: N/A Social History Main Topics ??? Smoking status: Current Some Day Smoker -- 4.50 packs/day for 22 years Types: Cigarettes ??? Smokeless tobacco: Not on file ??? Alcohol Use: Yes ??? Drug Use: Not on file ??? Sexual Activity: Not on file Other Topics Concern ??? Not on file Social History Narrative ROS: Constitutional: Negative. Ears, nose, mouth, throat, and face: negative. Eyes: negative. Cardiovascular: Coronary artery disease. Respiratory: negative. Gastrointestinal: Negative. Genitourinary: See HPI. Hematologic/lymphatic: negative. Integument/breast: negative. Musculoskeletal:negative. Neurological: negative Endocrine: Diabetes. No Known Allergies ROS updated: yes OBJECTIVE: BP 120/70 mmHg Ht 5' 11 (1.803 m) Wt 190 lb (86.183 kg) BMI 26.51 kg/m2 Body mass index is 26.51 kg/(m^2). PE: General appearance: alert, oriented, no acute distress. SHEENT: normocephalic, atraumatic, PERRA, neck supple, full ROM, hearing intact. Neck: no masses, no thyromegaly, supple. Lungs/Respirations: respiration regular without effort. Abdomen: soft non tender. Musculoskeletal: normal gait. Extremities: warm and well perfused. Skin: without rash. Neurological: no focal motor deficit, no focal sensory deficit. ASSESSMENT: ICD-9-CM ICD-10-CM 1. Other ejaculatory dysfunction 608.89 N53.19 2. Impotence 607.84 N52.9 3. Insulin dependent diabetes mellitus 250.00 E11.9 V58.67 Z79.4 PLAN. We discussed his erectile dysfunction which I suspect is multifactorial likely related to his cardiac issues and diabetes. He has tried Levitra and Viagra without success. He has difficulty with sideeffects. We discussed other options including pumps, MUSE, injection therapy and prosthesis. These are complicated by his cardiac history and requirement for anticoagulation. He is going to see his telephone station installer this week as he may need angioplasty and stenting again. He will call me next week. We discussed his fertility issues as well. We discussed options including testicular biopsy if theydo proceed with IVF. We'll discuss this further next week BASE ARCHITECT documented in this encounter Plan of Treatment Not on file documented as of this encounter Visit Diagnoses Diagnosis Other ejaculatory dysfunction- Primary Impotence Impotence of organic origin Insulin dependent diabetes mellitus Type II or unspecified type diabetes mellitus without mention of complication, not stated as uncontrolled documented in this encounter Care Teams Web Publisher Relationship Specialty Start Date End Date Dennis Doran MD [address] [place] [phone] PCP - General Internal Medicine 09/21/15 documented as of this encounter
--- OUTSIDE RECORDS SUMMARY | 2024-10-26 08:35 | XMS_ITS | Clinical Summary ---
Author Organization [facility] Address [address] [place] [address] Phone Care Team Providers Care Operations Mgr Name Role Phone Dennis Doran MD Primary Care Provider [phone] Allergies Active Allergy Reactions Criticality Noted Date Comments Guaifenesin Swelling 03/31/2016 Simvastatin 03/31/2016 Other reaction(s): Myalgias Medications Medication Sig Dispensed Refills Start Date End Date Status amLODIPine (NORVASC) 10 MG tablet TK 1 T PO QD 03/25/2020 Active carvedilol (COREG) 25 MG tablet TK 1 T PO BID 03/08/2020 Active clopidogrel (PLAVIX) 75 MG tablet 03/19/2020 Active nitroglycerin (NITROSTAT) 0.[address] 0.4 mg under the tongue once daily as needed 05/22/2018 Active OXYCONTIN 20 MG 12 hr abuse-deterrent tablet TK 1 T PO QD IF NEEDED 01/04/2020 Active VIIBRYD 40 MG tablet tablet TK 1 T PO QD 03/09/2020 Active ergocalciferol (VITAMIN D-2) 1.25 MG (41299 UT) capsule Take 50,000 Units by mouth every 7 (seven) days 10/28/2021 Active Icosapent Ethyl 1 g capsule Take 2 g by mouth 2 times daily 05/08/2022 Active isosorbide mononitrate (IMDUR) 30 MG 24 hr tablet Take 30 mg by mouth daily 12/02/2021 Active pantoprazole (PROTONIX) 40 MG EC tablet Take 40 mg by mouth 2 times daily 11/24/2021 Active venlafaxine XR (EFFEXOR-XR) 75 MG 24 hr capsule Take 150 mg by mouth daily 12/07/2021 Active ALPRAZolam (XANAX) 0.25 MG tablet Take 0.25 mg by mouth 1 (one) time each day if needed 03/15/2022 Active atorvastatin (LIPITOR) 80 MG tablet 02/28/2022 Active Continuous Blood Gluc Sensor (FreeStyle Mita 2 Sensor) misc USE DIRECTED TO CHECK FOUR TIMES DAILY 05/03/2022 Active levothyroxine (SYNTHROID) 25 MCG tablet TAKE 1 TABLET BY MOUTH 1 HOUR BEFORE BREAKFAST 05/04/2022 Active lisinopril (PRINIVIL) 2.5 MG tablet Take 2.5 mg by mouth 1 (one) time each day 05/04/2022 Active mupirocin (BACTROBAN) 2 % ointment APPLY TOPICALLY TO THE AFFECTED AREA TWICE DAILY FOR 5 TO 7 DAYS 03/10/2022 Active pregabalin (LYRICA) 75 MG capsule Take 75 mg by mouth every night 04/26/2022 Active HumaLOG 100 UNIT/ML solution ADMINISTER 55 UNITS UNDER THE SKIN THREE TIMES DAILY 03/15/2022 Active venlafaxine 75 MG 24 hr tablet TAKE 2 CAPSULES BY MOUTH DAILY. APPOINTMENT NEEDED 02/28/2022 Active Active Problems Problem Noted Date Diagnosed Date Coronary arteriosclerosis 04/04/2020 Hyperlipidemia 04/04/2020 Hypertension 04/04/2020 Retinopathy due to diabetes mellitus 04/04/2020 Chest pain 05/21/2018 Diabetes mellitus 09/22/2015 Impotence 09/22/2015 Cerebrovascular accident 10/22/2009 Chronic kidney disease Family History Medical History Relation Comments Coronary artery disease Mother Myocardial infarction Mother Heart valve disorder Sister Relation Status Comments Mother Sister Social History Tobacco Use Types Packs/Day Years [...] Mass Index 27.2 05/10/2022 10:47 AM CDT Plan of Treatment Health Maintenance Due Date Last Done Comments Influenza Vaccine (#1) 2024 Care Teams Operations Mgr Relationship Specialty Start Date End Date Dennis Doran MD [address] [place] [phone] PCP - General Internal Medicine 03/11/20
--- OUTSIDE RECORDS SUMMARY | 2024-10-26 10:02 | XMS_ITS | Encounter Summary ---
Author Organization [facility] Address [address] [place] [address] Phone Care Team Providers Care Computer Patternmaker Name Role Phone Dennis Doran MD Primary Care Provider [phone] Reason for Referral * (Routine) - Closed Specialty Diagnoses / Procedures Referred By Contac t Referred To Contact Diagnoses Chronic kidney disease stage 4 (CMS-HCC) Benign hypertension with chronic kidney disease Diabetes mellitus with renal manifestations (CMS-HCC) Other proteinuria Procedures Ultrasound renal complete Seda Rajput MD [address] [facility], [address] [place] [address] Referral ID Status Reason Start Date Expiration Date Visits Re quested Visits Authorized [id number] Closed 05/10/2022 11/06/2022 1 1 Encounter Details Date Type Department Care Team (Late st Contact Info) Description 05/10/2022 10:45 AM CDT Office Visit [facility] Nephrology and Hypertension [address] [facility] [address], [address] [place] [address] Seda Rajput MD [address] [facility], [address] [place] [address] Chronic kidney disease stage 4 [...] Medications: ??? ergocalciferol (VITAMIN D-2) 1.25 MG (05924 UT) capsule, Take 50,000 Units by mouth [...] , Rfl: ??? Continuous Blood Gluc Sensor (OnformonicsStyle Mita 2 Sensor) [facility] [place], USE DIRECTED TO CHECK FOUR TIMES DAILY, [...] Imaging Routine Chronic kidney disease stage 4 ([facility]) Benign hypertension with chronic kidney disease Diabetes mellitus with renal manifestations ([facility]) Other proteinuria Expected: 06/10/2022 (Approximate), Expires: 05/10/2023 Renal Function Panel (RFP) Lab Routine Chronic kidney disease stage 4 ([facility]) Benign hypertension with chronic kidney disease Diabetes mellitus with renal manifestations ([facility]) Other proteinuria 1 Occurrences starting 05/10/2022 until 05/10/2023 Total Protein w/ Creatinine, Urine, Random Lab Routine Chronic kidney disease stage 4 ([facility]) Benign hypertension with chronic kidney disease Diabetes mellitus with renal manifestations ([facility]) Other proteinuria 1 Occurrences starting 05/10/2022 until 05/10/2023 PTH Intact w/o Calcium, Serum Lab Routine Chronic kidney disease stage 4 ([facility]) Benign hypertension with chronic kidney disease Diabetes mellitus with renal manifestations ([facility]) Other proteinuria 1 Occurrences starting 05/10/2022 until 05/10/2023 Protein Electrophoresis, Serum Lab Routine Chronic kidney disease stage 4 ([facility]) Benign hypertension with chronic kidney disease Diabetes mellitus with renal manifestations ([facility]) Other proteinuria 1 Occurrences starting 05/10/2022 until 05/10/2023 Protein Electrophoresis, Urine, Random Lab Routine Chronic kidney disease stage 4 ([facility]) Benign hypertension with chronic kidney disease Diabetes mellitus with renal manifestations ([facility]) Other proteinuria 1 Occurrences starting 05/10/2022 until 05/10/2023 QuestAssureD? ? 25-Hydroxyvitamin D (D2, D3) Lab Routine Chronic kidney disease stage 4 ([facility]) Benign hypertension with chronic kidney disease Diabetes mellitus with renal manifestations ([facility]) Other proteinuria 1 Occurrences starting 05/10/2022 until 05/10/2023 Sodium, Urine Lab Routine Chronic kidney disease stage 4 ([facility]) Benign hypertension with chronic kidney disease Diabetes mellitus with renal manifestations ([facility]) Other proteinuria 1 Occurrences starting 05/10/2022 until 05/10/2023 dsDNA AB, Serum Lab Routine Chronic kidney disease stage 4 ([facility]) Benign hypertension with chronic kidney disease Diabetes mellitus with renal manifestations ([facility]) Other proteinuria 1 Occurrences starting 05/10/2022 until 05/10/2023 ANCA Screen w/ MPO and PR3 w/ Reflex to Titer Lab Routine Chronic kidney disease stage 4 ([facility]) Benign hypertension with chronic kidney disease Diabetes mellitus with renal manifestations ([facility]) Other proteinuria 1 Occurrences starting 05/10/2022 until 05/10/2023 Antinuclear Antibodies (LETY), IFA w/ Refl Titer and Pattern Lab Routine Chronic kidney disease stage 4 ([facility]) Benign hypertension with chronic kidney disease Diabetes mellitus with renal manifestations ([facility]) Other proteinuria 1 Occurrences starting 05/10/2022 until 05/10/2023 Complement C3 + C4 Lab Routine Chronic kidney disease stage 4 ([facility]) Benign hypertension with chronic kidney disease Diabetes mellitus with renal manifestations ([facility]) Other proteinuria 1 Occurrences starting 05/10/2022 until 05/10/2023 Glomerular Basement Membrane Antibody (IGG), Serum Lab Routine Chronic kidney disease stage 4 (CMS-HCC) Benign hypertension with chronic kidney disease Diabetes mellitus with renal manifestations ([facility]) Other proteinuria 1 Occurrences starting 05/10/2022 until [...] LAB BLOOD ORDERAB LES Performing Organization Address [facility] Co de Phone Number EXTERNAL LAB (NON-INTERFACED) * Renal Function Panel (RFP) (01/06/2022) Creatinine, Serum/Plasma 2.29 mg/dL EXTERNAL LAB (NON-INTERFACE D) Blood (Blood, Venous) Historical Provider MD LAB BLOOD ORDERAB LES Performing Organization Address [facility] de Phone Number EXTERNAL LAB (NON-INTERFACED) * Renal Function Panel (RFP) (10/28/2021) Creatinine, Serum/Plasma 2.29 mg/dL EXTERNAL LAB (NON-INTERFACE D) Blood (Blood, Venous) Historical Provider MD LAB BLOOD ORDERAB LES Performing Organization Address [facility] de Phone Number EXTERNAL LAB (NON-INTERFACED) * Albumin/Creatinine Ratio, Random, Urine (09/20/2021) Albumin/Creatin ine, Urine 4,070 EXTERNAL LAB (NON-INTERFACE D) Urine (Urine, Clean Catch) Historical Provider MD LAB URINE ORDERAB LES Performing Organization Address [facility] Co de Phone Number EXTERNAL LAB (NON-INTERFACED) * Renal Function Panel (RFP) (09/20/2021) Creatinine, Serum/Plasma 2.0 mg/dL EXTERNAL LAB (NON-INTERFACE D) Blood (Blood, Venous) Historical Provider MD LAB BLOOD ORDERAB LES Performing Organization Address [facility] Co de Phone Number EXTERNAL LAB (NON-INTERFACED) documented in this encounter Visit Diagnoses Diagnosis Chronic kidney disease stage 4 (CMS-HCC) Benign hypertension with chronic kidney disease Diabetes mellitus with renal manifestations (CMS-HCC) Other proteinuria documented in this encounter Care Teams Computer Patternmaker Relationship Specialty Start Date End Date Dennis Doran MD [address] [place] [phone] PCP - General Internal Medicine 03/11/20 documented as of this encounter
--- OUTSIDE RECORDS SUMMARY | 2024-10-26 10:02 | XMS_ITS | Clinical Summary ---
Author Organization [facility] Address [address] [place] [address] Phone Care Team Providers Care Meat Cooler Name Role Phone Dennis Doran MD Primary Care Provider [phone] Allergies Active Allergy Reactions Criticality Noted Date [...] 03/09/2020 Active ergocalciferol (VITAMIN D-2) 1.25 MG (65592 UT) capsule Take 50,000 Units by mouth [...] Comments Influenza Vaccine (#1) 2024 Care Teams Meat Cooler Relationship Specialty Start Date End Date Dennis Doran MD [address] [place] [phone] PCP - General Internal Medicine 03/11/20
--- OUTSIDE RECORDS SUMMARY | 2024-10-26 10:02 | XMS_ITS | Encounter Summary ---
Author Organization [facility] Address [address] [place] [address] Phone Care Team Providers Care Internet Security Specialist Name Role Phone Dennis Doran MD Primary Care Provider [phone] Encounter Details Date Type Department Care Team (Late st Contact Info) Description 04/01/2020 10:30 AM CDT Office Visit [facility] Nephrology and Hypertension [address] [place] [address], [address] [place] [address] Seda Rajput MD [address] [facility] [place] [address] Chronic kidney disease stage 3 (CMS-HCC); Diabetes [...] Lab Routine Chronic kidney disease stage 3 ([facility]) Diabetes mellitus with renal manifestations ([facility]) Hypertensive renal disease Other proteinuria 1 Occurrences starting 04/01/2020 until 04/01/2021 ANTINUCLEAR ANTIBODIES (LETY), IFA W/ REFL TITER AND PATTERN Lab Routine Chronic kidney disease stage 3 ([facility]) Diabetes mellitus with renal manifestations ([facility]) Hypertensive renal disease Other proteinuria 1 Occurrences starting 04/01/2020 until 04/01/2021 COMPLEMENT C3 + C4 Lab Routine Chronic kidney disease stage 3 ([facility]) Diabetes mellitus with renal manifestations ([facility]) Hypertensive renal disease Other proteinuria 1 Occurrences starting 04/01/2020 until 04/01/2021 DSDNA AB, SERUM Lab Routine Chronic kidney disease stage 3 ([facility]) Diabetes mellitus with renal manifestations ([facility]) Hypertensive renal disease Other proteinuria 1 Occurrences starting 04/01/2020 until 04/01/2021 GLOMERULAR BASEMENT MEMBRANE ANTIBODY (IGG), SERUM Lab Routine Chronic kidney disease stage 3 ([facility]) Diabetes mellitus with renal manifestations ([facility]) Hypertensive renal disease Other proteinuria 1 Occurrences starting 04/01/2020 until 04/01/2021 TOTAL PROTEIN W/ CREATININE, URINE, RANDOM Lab Routine Chronic kidney disease stage 3 ([facility]) Diabetes mellitus with renal manifestations ([facility]) Hypertensive renal disease Other proteinuria 1 Occurrences starting 04/01/2020 until 04/01/2021 SODIUM, URINE Lab Routine Chronic kidney disease stage 3 ([facility]) Diabetes mellitus with renal manifestations ([facility]) Hypertensive renal disease Other proteinuria 1 Occurrences starting 04/01/2020 until 04/01/2021 EOSINOPHIL, URINE Lab Routine Chronic kidney disease stage 3 ([facility]) Diabetes mellitus with renal manifestations ([facility]) Hypertensive renal disease Other proteinuria 1 Occurrences starting 04/01/2020 until 04/01/2021 PROTEIN ELECTROPHORESIS, URINE, RANDOM Lab Routine Chronic kidney disease stage 3 ([facility]) Diabetes mellitus with renal manifestations ([facility]) Hypertensive renal disease Other proteinuria 1 Occurrences starting 04/01/2020 until 04/01/2021 PROTEIN ELECTROPHORESIS, SERUM Lab Routine Chronic kidney disease stage 3 ([facility]) Diabetes mellitus with renal manifestations ([facility]) Hypertensive renal disease Other proteinuria 1 Occurrences starting 04/01/2020 until 04/01/2021 RENAL FUNCTION PANEL (RFP) Lab Routine Chronic kidney disease stage 3 ([facility]) Diabetes mellitus with renal manifestations ([facility]) Hypertensive renal disease Other proteinuria 1 [...] LAB BLOOD ORDERAB LES Performing Organization Address City/[facility]/ZIP Co de Phone Number EXTERNAL LAB (NON-INTERFACED) * Hemoglobin A1c, Serum (02/26/2020) Hemoglobin A1c/Hemoglobin, total, Blood 8.7 % EXTERNAL LAB (NON-INTERFACE D) Blood (Blood, Venous) Historical Provider MD LAB BLOOD ORDERAB LES EXTERNAL LAB (NON-INTERFACED) * Renal Function Panel (RFP) (02/10/2019) Creatinine, Serum/Plasma 1.49 mg/dL EXTERNAL LAB (NON-INTERFACE D) Blood (Blood, Venous) Historical Provider MD LAB BLOOD ORDERAB LES Performing Organization Address [facility]/State/ZIP Co de Phone Number EXTERNAL LAB (NON-INTERFACED) documented in this encounter Visit Diagnoses Diagnosis Chronic kidney disease stage 3 ([facility]) Diabetes mellitus with renal manifestations ([facility]) Hypertensive renal disease Other proteinuria documented in this encounter Care Teams Internet Security Specialist Relationship Specialty Start Date End Date Dennis Doran MD [address] [place] [phone] PCP - General Internal Medicine 03/11/20 documented as of this encounter
--- OUTSIDE RECORDS SUMMARY | 2024-10-26 10:02 | XMS_ITS | Encounter Summary ---
Author Organization [facility] Address [address] [place] [address] Phone Care Team Providers Care Tetryl Screen Operator Name Role Phone Dennis Doran MD Primary Care Provider [phone] Encounter Details Date Type Department Care Team (Late st Contact Info) Description 05/08/2022 Telephone [facility] Nephrology and Hypertension [address] [facility], [address] [place] [address] Megan Alanis RN Social History Tobacco Use [...] on filedocumented in this encounter Care Teams Tetryl Screen Operator Relationship Specialty Start Date End Date Dennis Doran MD [address] [place] [phone] PCP - General Internal Medicine 03/11/20 documented as of this encounter
--- OUTSIDE RECORDS SUMMARY | 2024-10-26 10:03 | XMS_ITS | Encounter Summary ---
Author Organization [facility] Address [address] [place] [address]. 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) Dyspnea on exertion Procedures NM EXER NUC STRESS TEST 1DAY Joann Marquez ANP-BC [address] [facility] [address] [place] [address] Phone: tel: fax: Referral ID Status Reason Start Date Expiration Date V isits Requested Visits Authorized [id number] Authorized 06/11/2024 06/11/2025 1 2 * Medication Prior Authorization - Closed Specialty Diagnoses / Procedures Referred By Cheyanne puentes Referred To Contact Joann Marquez ANP-BC [address] [facility] [address] [place] [address] Phone: tel: fax: Referral ID Status Reason Start Date Expiration Date Visits Re quested Visits Authorized [id number] Closed 1 1 Reason for Visit * Reason Comments Follow Up Encounter Details Date Type Department Care Team (Late st Contact Info) Description 06/11/2024 2:30 PM CDT Office Visit [facility] eld [address] [place] [address] Joann Marquez ANP-BC [address] [facility] [address] [place] [address] Follow Up Social History Tobacco [...] 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 LAUREL HANSEN, PA: Rubia Kowalski was seen on 06/11/2024 at the [facility]. Orders Placed This Encounter LIPID PANEL LIPOPROTEIN, [...] Date Anxiety CAD (coronary artery disease) Cancer ([facility]) Melanoma Chronic kidney disease CKD (chronic kidney disease) Colitis CVA (cerebral vascular accident) ([facility]) 2010 Diabetes ([facility]) Diabetic retinopathy ([facility]) GERD (gastroesophageal reflux disease) Glaucoma History of coronary artery stent placement 2013 Hyperlipidemia Hypertension Lumbago Myocardial infarction ([facility]) Personal history of MRSA (methicillin resistant Staphylococcus [...] Comments: Diagnoses/Impression: 1. Coronary artery disease of caddo artery of cadd[place] heart with stable angina pectoris (CMS/HCC) ELECTROCARDIOGRAM [...] demonstrates sinus rhythm with possible anterior septal LA with no significant change compared to 11/06/2023. [...] care of Rubia Kowalski. 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) Mixed hyperlipidemia Expected: 09/11/2024, Expires: 12/12/2024 LIPOPROTEIN, LDL CHOL, DIRECT Lab Routine Coronary artery disease of c[place] artery of [place]add[place] heart with stable angina pectoris (CMS/HCC) Mixed hyperlipidemia Expected: 09/11/2024, Expires: 12/12/2024 NM EXER NUC STRESS TEST 1DAY NUC MED Routine Coronary artery disease of cadd[place] artery of caddo heart with stable angina pectoris (CMS/HCC) Dyspnea on exertion Expected: 06/11/2024, Expires: 06/11/2025 documented as of this encounter Procedures Procedure Name Priority Date/Time Associated Diagnosis Comments ELECTROCARDIOGRAM (NON MIDMARK ACQUIRED) Routine 06/11/2024 3:04 PM CDT 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 [facility] ?[address] [place], [place] ??[address] ? Test Date: ?2024-06-11 Pat Name: ? RUBIA KOWALSKI ?Department: ?? 105 ? Room: ? Gender: ? Male ? Fire Extinguisher Sprinkler Inspector: ?? : ?1975 ? Requested By: ABHINAV GOULD Order Number: [id number] ?Reading : ?? Abhinav Gould ? Measurements Intervals ?[place] ? Rate: ? 63 ? P: ?34 HI: ? 141 ?QRS: ?61 QRSD: ? 94 ? T: ?45 QT: ? 410 ? QTc: ?420 ? Interpretive Statements SINUS RHYTHM Possible LA, AU Procedure Note Abhinav Gould MD - 06/12/2024 [facility], [facility] [address] [place] [address] Test Date: 2024-06-11 Pat Name: RUBIA KOWALSKI Department: 105 Room: Gender: Male Fire Extinguisher Sprinkler Inspector: : 1975 Requested By: ABHINAV GOULD Order Number: [id number] Reading MD: Abhinav Gould Measurements Intervals [place] Rate: 63 P: 34 HI: 141 QRS: 61 QRSD: 94 T: 45 QT: 410 QTc: 420 Interpretive Statements SINUS RHYTHM Possible LA, AU us Abhinav Gould MD PROCEDURES-ORDERABLE NO CHARGE F inal Result [facility] documented in this encounter Visit Diagnoses Diagnosis Coronary artery disease of cadd[place] artery of cadd[place] heart with stable angina pectoris (CMS/HCC)- Primary Mixed hyperlipidemia Dyspnea on exertion Other dyspnea and respiratory abnormality Primary hypertension Unspecified essential hypertension Tobacco use Tobacco use disorder documented in this encounter Care Teams Radio Survey Worker Relationship Specialty Start Date End Date Laurel Hansen PA [address] [place] [address] PCP - General PHYSICIAN EDI CONSULTANT 10/24/23 Joann Marquez, ANP-BC [address] [place] [address] [address] [place] [address] [place] Vegetable Specker NURSE PRACTITIONER 02/28/17 documented as of this encounter
--- OUTSIDE RECORDS SUMMARY | 2024-10-26 10:03 | XMS_ITS | Encounter Summary ---
Author Organization [facility] Address [facility] 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 Not on file Not [...] Result * THYROXINE, FREE (FT4) (01/15/2024) Pathologist [facility] FREE T4 1.1 0.8 - 1.8 01/15/2024 us Default History Genericprovider LABORATORY Final Result * TSH (OUTSIDE LAB) (01/15/2024) Pathologist [facility] TSH 1.84 0.40 - 4.50 01/15/2024 us Default History Genericprovider LAB-OUTSIDE/ABST RACTED Final Result * MAGNESIUM (OUTSIDE LAB) (01/15/2024) Pathologist [facility] MAGNESIUM 1.7 1.5 - 2.5 01/15/2024 us Default History Genericprovider LAB-OUTSIDE/ABST RACTED Final Result documented in this encounter Visit Diagnoses Not on filedocumented in this encounter Care Teams Glassie Relationship Specialty Start Date End Date Denisha Hansen PA [facility] [place] [address] PCP - General PHYSICIAN LOGISTICS ADMINISTRATOR 10/24/23 Joann Marquez, ANP- [address] [facility] [address] [place] [address] [place] Optimization Engineer NURSE PRACTITIONER 02/28/17 documented as of this encounter
--- OUTSIDE RECORDS SUMMARY | 2024-10-26 10:03 | XMS_ITS | Encounter Summary ---
Author Organization [facility] Address [address] [place] [address]. [address] [address] Care Team Providers Care Medical Photographer Name Role Phone Joann Marquez Bernard [facility]- Unavailable [phone] Denisha Hansen Primary Care Provider [phone] Reason for Referral * Imaging (Routine) - Closed Specialty Diagnoses / Procedures Referred By Contac t Referred To Contact RADIOLOGY Diagnoses Dyspnea, unspecified Other abnormalities of breathing Chronic obstructive pulmonary disease, unspecified ([facility] HHS/HCC) Procedures CT CHEST WO Denisha Liu PA [address] [place] [address] Phone: tel: fax: Referral ID Status Reason Start Date Expiration Date Visits Re quested Visits Authorized [id number] Closed 12/06/2023 03/05/2024 1 1 HEEL BUILDER Reason for Visit * Imaging (Routine) - Closed Specialty Diagnoses / Procedures Referred By Contac t Referred To Contact RADIOLOGY Diagnoses Dyspnea, unspecified Other abnormalities of breathing Chronic obstructive pulmonary disease, unspecified ([facility] HHS/HCC) Procedures CT CHEST WO Denisha Liu PA [address] [place] [address] Phone: tel: fax: Referral ID Status Reason Start Date Expiration Date Visits Re quested Visits Authorized [id number] Closed 12/06/2023 03/05/2024 1 1 Encounter Details Date Type Department Care Team (Latest Contact Info) Description 12/18/2023 1:21 PM HIGH HEEL BUILDER - 12/18/2023 11:59 PM HIGH HEEL BUILDER 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 10/28/2021 06/11/20 documented as of this encounter Plan of Treatment Not on file documented as of this encounter Procedures Procedure Name Priority Date/Time Associated Diagnosis Comments CT CHEST WO CON Routine 12/18/2023 1:32 PM HIGH HEEL BUILDER Dyspnea, unspecified Other abnormalities of breathing Chronic obstructive pulmonary disease, unspecified ([facility]) documented in this encounter Results * CT CHEST WO CON (12/18/2023 1:32 PM HIGH HEEL BUILDER) Anatomical Region Laterality Modality Chest Computed Tomogra phy 12/19/2023 5:48 AM HIGH HEEL BUILDER Impressions 12/19/2023 5:56 AM HIGH HEEL BUILDER IMPRESSION: 1. ??No evidence of infiltrate or effusion.. ??Mild emphysematous change. 2. ??No pathologic pulmonary nodules. ??Stable nonpathologic sized mediastinal lymph nodes.. 3. ??Advanced coronary artery calcifications with stents. Referred By: DENISHA HANSEN Interpreted By: Lewis Luther MD, 12/19/2023 5:48 AM Narrative 12/19/2023 5:56 AM HIGH HEEL BUILDER EXAMINATION: CT CHEST WITHOUT CONTRAST EXAM DATE/TIME: [...] HHS/HCC) documented in this encounter Care Teams Medical Photographer Relationship Specialty Start Date End Date Denisha Hansen PA [address] [place] [address] PCP - General PHYSICIAN BUTTER MELTER 10/24/23 Joann Marquez, ANP-BC [address] [facility] [address] [place] [address] [place] Manufacturing Engineering Technologist NURSE PRACTITIONER 02/28/17 documented as of this encounter
--- OUTSIDE RECORDS SUMMARY | 2024-10-26 10:03 | XMS_ITS | Encounter Summary ---
Author Organization [facility] Address [address] [place] [address]. 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 Not on file Not on file Not on file Not on file Not on file Not on file documented as of this encounter Plan of Treatment Not on file documented as of this encounter Procedures Procedure Name Priority Date/Time Associated Diagnosis Comments COMPREHENSIVE METABOLIC PANEL Routine 01/15/2024 Coronary artery disease of [place] artery of [place] heart with stable angina pectoris (CMS/HCC) Mixed [...] Visit Diagnoses Diagnosis Coronary artery disease of [place] ir[place] artery of [place] heart with stable angina pectoris (CMS/HCC) Mixed hyperlipidemia Primary hypertension Unspecified essential hypertension documented in this encounter Care Teams Plant Wire Chief Relationship Specialty Start Date End Date Denisha Hansen PA [facility]2 [place] [address] PCP - General PHYSICIAN REGISTERED PRIVATE DUTY NURSE 10/24/23 Joann Marquez, ANP-BC [address] [facility] [address] [place] [address] [place] Operations Manager NURSE PRACTITIONER 02/28/17 documented as of this encounter
--- OUTSIDE RECORDS SUMMARY | 2024-10-26 10:03 | XMS_ITS | Encounter Summary ---
Author Organization [facility] Address [facility]6 [facility] 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 Not on file Not on file [...] Tank voiced understanding and said thank you. ONENT ASSEMBLER SUPERVISOR * Amanda Maldonado LPN - 11/19/2023 11:53 AM CST Left message for pt ot call back ONENT ASSEMBLER SUPERVISOR * Amanda Maldonado LPN - 11/16/2023 1:22 PM CST Left message for pt to call back ONENT ASSEMBLER SUPERVISOR * MARIO Mendenhall - 11/09/2023 5:17 [...] continue amlodipine, isosorbide and carvedilol without interruption. ONENT ASSEMBLER SUPERVISOR documented in this encounter Plan of Treatment Not on file documented as of this encounter Visit Diagnoses Not on filedocumented in this encounter Care Teams Care Transport Nurse Relationship Specialty Start Date End Date Denisha Hansen PA [address] [place] [address] PCP - General PHYSICIAN GROUP ACCOUNT DIRECTOR 10/24/23 Joann Marquez, [facility]- [address] [facility] [address] [address] [place] Oyster Sorter NURSE PRACTITIONER 02/28/17 documented as of this encounter
--- OUTSIDE RECORDS SUMMARY | 2024-10-26 10:03 | XMS_ITS | Encounter Summary ---
Author Organization [facility] Address [facility]6 [facility]. 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
--- OUTSIDE RECORDS SUMMARY | 2024-10-26 10:03 | XMS_ITS | Encounter Summary ---
Author Organization [facility] Address [address] [place] [address]. [place], [place] [address] [place] [address] Care Team Providers Care Drywall Professional Name Role Phone Joann Marquez [facility]- Unavailable [phone] Denisha Hansen Primary Care Provider [phone] Reason for Referral * Imaging (Emergency) - Closed Specialty Diagnoses / Procedures Referred By Cheyanne puentes Referred To Contact RADIOLOGY Diagnoses Other specified disorders of the male genital organs Procedures US TESTICULAR W DOPPLER Enriqueta Villasenor FNP [address] [place] [address] Phone: tel: fax: Referral ID Status Reason Start Date Expiration Date Visits Re quested Visits Authorized [id number] Closed 01/22/2024 02/20/2025 1 1 Reason for Visit * Imaging (Emergency) - Closed Specialty Diagnoses / Procedures Referred By Cheyanne puentes Referred To Contact RADIOLOGY Diagnoses Other specified disorders of the male genital organs Procedures US TESTICULAR W DOPPLER Enriqueta Villasenor FNP [address] [place] [address] Phone: tel: fax: Referral ID Status Reason Start Date Expiration Date Visits Re quested Visits Authorized [id number] Closed 01/22/2024 02/20/2025 1 1 Encounter Details Date Type Department Care Team (Latest Contact Info) Description 01/22/2024 2:40 PM CDT - 01/22/2024 11:59 PM CDT Hospital Encounter 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 [address] [place] [address] Victor Button Tacker NURSE PRACTITIONER 02/28/17 documented as of this encounter
--- OUTSIDE RECORDS SUMMARY | 2024-10-26 10:03 | XMS_ITS | Encounter Summary ---
Author Organization [facility] Address [address] [place] [address]. 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
--- OUTSIDE RECORDS SUMMARY | 2024-10-26 10:03 | XMS_ITS | Encounter Summary ---
Author Organization [facility] Address [facility]6 [facility]. 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 Not on file Not on file Not on file Not on file Not on file Not on file documented as of this encounter Plan of Treatment Not on file documented as of this encounter Visit Diagnoses Not on filedocumented in this encounter Care Teams Citrix Engineer Relationship Specialty [place] [address] [place] [address] PCP - General PHYSICIAN VOCATIONAL EDUCATION PROFESSIONAL 10/24/23 Joann Marquez ANP-BC [address] [facility] [address] [place] [address] [place] Medical Sonographer NURSE PRACTITIONER 02/28/17 documented as of this encounter
--- OUTSIDE RECORDS SUMMARY | 2024-10-26 10:03 | XMS_ITS | Encounter Summary ---
Author Organization [facility] Address [address] [place] [address]. [place], [place] [address] [place] [address] Care Team Providers Care Blow Up Operator Name Role Phone Joann Marquez [facility]- Unavailable [phone] Denisha Hansen Primary Care Provider [phone] Reason for Referral * Imaging (Routine) - [...] Procedures US RETROPERITONEAL LTD Yasmany [place] MD [address] [place] [address] Phone: tel: fax: Referral ID Status Reason Start Date Expiration Date Visits Re quested Visits Authorized [id number] Closed 07/18/2024 07/18/2025 1 1 Reason for [...] Procedures US RETROPERITONEAL LTD Yasmany [place] MD [address] [place] [address] Phone: tel: fax: Referral ID Status Reason Start Date Expiration Date Visits Re quested Visits Authorized [id number] Closed 07/18/2024 07/18/2025 1 1 Encounter Details Date Type Department Care Team (Latest Contact Info) Description 07/24/2024 1:00 PM CDT - 07/24/2024 11:59 PM CDT Hospital Encounter [facility] Ultrasound [address] [place] [address] Yasmany Simmons MD [address] [place] [id number] Discharge Disposition: Home or Self Care (Routine [...] 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 [address] IMAGING STUDIES: US RETROPERITONEAL LTD DATE: 07/24/2024 [...] Procedure Note Lewis Luther MD - 07/24/2024 [place] [id number] [place] [address] IMAGING STUDIES: US RETROPERITONEAL LTD DATE: 07/24/2024 [...] diabetes mellitus with diabetic chronic kidney disease ([facility] HHS/HCC) Type I (juvenile type) diabetes mellitus with renal manifestations, not stated as uncontrolled Chronic kidney disease, stage 4 (severe) ([facility]) documented in this encounter Care Teams Blow Up Operator Relationship Specialty Start Date End Date Denisha Hansen PA [address] [place] [address] PCP - General PHYSICIAN DISPOSAL WORKER 10/24/23 Joann Marquez, ANP- [address] [facility] [address] [place] [address] [place] Peanut Farmer NURSE PRACTITIONER 02/28/17 documented as of this encounter
--- OUTSIDE RECORDS SUMMARY | 2024-10-26 10:03 | XMS_ITS | Encounter Summary ---
Author Organization [facility] Address [facility] [place] [address] [place] [address] Care Team Providers Care Fire Sprinkler Designer Name Role Phone Joann aMrquez-BC Unavailable Densiha Hansen Primary Care Provider [phone] Reason for Visit * Reason Onset Date Comments Appointment Reminder 05/22/2024 Encounter Details Date Type Department Care Team ([facility] st Contact Info) Description 05/22/2024 Telephone [place] 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 documented in this encounter Plan of Treatment Not on file documented as of this encounter Visit Diagnoses Not on filedocumented in this encounter Care Teams Fire Sprinkler Designer Relationship Specialty Start Date End Date Denisha Hansen PA [address] [place] [address] PCP - General PHYSICIAN TAX COLLECTOR 10/24/23 Joann Marquez, ANP- [address] [facility] [address] [place] [address] [place] [employer] NURSE PRACTITIONER 02/28/17 documented as of this encounter
--- OUTSIDE RECORDS SUMMARY | 2024-10-26 10:03 | XMS_ITS | Encounter Summary ---
Author Organization [facility] Address [facility] [place] 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 * Shiloh Marshall - 01/28/2024 10:49 AM CDT Labs received from [employer], sent to be abstracted. documented in this encounter Plan of Treatment Not on file documented as of this encounter Visit Diagnoses Not on filedocumented in this encounter Care Teams Professor Of Marketing Relationship Specialty Start Date End Date Denisha Hansen PA [address] [place] [address] PCP - General PHYSICIAN STRAIGHT SLICING MACHINE OPERATOR 10/24/23 Joann Marquez, ANP- [address] [facility] [address] [place] [address] [place] Warehouse Delivery Driver NURSE PRACTITIONER 02/28/17 documented as of this encounter
--- OUTSIDE RECORDS SUMMARY | 2024-10-26 10:03 | XMS_ITS | Encounter Summary ---
Author Organization [facility] Address [facility] 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 documented in this encounter Plan of Treatment Not on file documented as of this encounter Visit Diagnoses Not on filedocumented in this encounter Care Teams Tray Drier Operator Relationship Specialty Start Date End Date Denisha Hansen PA [address] [place] [address] PCP - General PHYSICIAN DIAGNOSTIC IMAGING MANAGER 10/24/23 Joann Marquez, ANP- [address] [facility] [address] [place] [address] Ramah Handy Worker NURSE PRACTITIONER 02/28/17 documented as of this encounter
--- OUTSIDE RECORDS SUMMARY | 2024-10-26 10:03 | XMS_ITS | Encounter Summary ---
Author Organization [facility] Address [facility]6 [facility]. 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 Not on file Not on file Not on file Not on file Not on file Not on file documented as of this encounter Plan of Treatment Not on file documented as of this encounter Visit Diagnoses Not on filedocumented in this encounter Care Teams Carburetor Repairer Relationship Specialty [place] [address] [place] [address] PCP - General PHYSICIAN AUTOMOBILE UPHOLSTERY TRIM INSTALLER 10/24/23 Joann Marquez ANP-BC [address] [facility] [address] [place] [address] [place] Stem Roller Or Crusher Operator NURSE PRACTITIONER 02/28/17 documented as of this encounter
--- OUTSIDE RECORDS SUMMARY | 2024-10-26 10:03 | XMS_ITS | Encounter Summary ---
Author Organization [facility] Address [address] [place] [address]. [place] [address] [place] [address] Care Team Providers Care Soap Tender Name Role Phone Ruthy Norris Unavailable Denisha Hansen Primary Care Provider [phone] Reason for Visit * Reason Onset Date Comments Refill Request 06/04/2024 Appointment Request 06/04/2024 Reschedule 06/04/2024 Encounter Details Date Type Department Care Team ([facility] st Contact Info) Description 06/04/2024 Telephone [facility]eld [address] [place] [address] Ruthy Norris ANP-BC [address] [facility] [address] [place] [address] Refill Request; Appointment Request; Reschedule [...] 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 PT v/u and thanked mefor my help. documented in this encounter Plan of Treatment Not on file documented as of this encounter Visit Diagnoses Not on filedocumented in this encounter Care Teams Soap Tender Relationship Specialty Start Date End Date Denisha Hansen PA [address] [place] [address] PCP - General PHYSICIAN SOCIAL SCIENCES INSTRUCTOR 10/24/23 Ruthy Norris ANP-BC [address] [place] [address] [address] [place] [address] [place] Marine Scientist NURSE PRACTITIONER 02/28/17 documented as of this encounter
--- OUTSIDE RECORDS SUMMARY | 2024-10-26 10:03 | XMS_ITS | Encounter Summary ---
Author Organization [facility] Address [facility]. 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
--- OUTSIDE RECORDS SUMMARY | 2024-10-26 10:03 | XMS_ITS | Encounter Summary ---
Author Organization [facility] Address [address] [place] [address]. 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 Not on file Not on file Not on file Not on file Not on file Not on file documented as of this encounter Plan of Treatment Not on file documented as of this encounter Procedures Procedure Name Priority Date/Time Associated Diagnosis Comments LIPID PANEL Routine 01/15/2024 Coronary artery disease of [place] artery of [place] heart with stable angina pectoris (CMS/HCC) Mixed hyperlipidemia Primary hypertension CBC W/DIFF AUTOMATED Routine 01/15/2024 Coronary artery disease of [place] artery of [place] heart with stable angina pectoris (CMS/HCC) Mixed [...] 83 0 - 200 01/15/2024 Joann Marquez [facility] Final Re sult * (ABNORMAL) LIPID PANEL (01/15/2024) CHOLESTEROL 195 <200 HDL 39 >or =40 TRIGLYCERIDES 263 <150 NON HDL CHOLESTEROL 156 <130 CHOL/HDL RATIO 5.0 <5.0 LDL (CALCULATED) 118 <100 01/15/2024 Joann Marquez [facility] Final Re sult documented in this encounter Visit Diagnoses Diagnosis Coronary artery disease of [place] artery of [place] heart with stable angina pectoris (CMS/HCC) Mixed hyperlipidemia Primary hypertension Unspecified essential hypertension documented in this encounter Care Teams Director Of Emergency Nursing Relationship Specialty Start Date End Date Denisha Hansen PA [address] [place] [address] PCP - General PHYSICIAN INTERNET WEBMASTER 10/24/23 Joann Marquez ANP- [address] [facility] 47 [place] [address] Pyatt Wicker Molded Candles NURSE PRACTITIONER 02/28/17 documented as of this encounter
--- OUTSIDE RECORDS SUMMARY | 2024-10-26 10:03 | XMS_ITS | Encounter Summary ---
Author Organization [facility] Address [address] [place] [address]. [place] [address] [place] [address] Care Team Providers Care Clinical Operations Manager Name Role Phone Joann Norris-BC Unavailable [phone] Denisha Hansen Primary Care Provider [phone] Reason for Visit * Reason Onset Date Comments Lab Order 11/30/2023 Encounter Details Date Type Department Care Team ([facility] st Contact Info) Description 11/30/2023 Telephone [place] [facility] [address] [place] [address] Joann Norris, AURELIANO-ERICA [address] [facility] [address] [place] [address] Lab Order Social History Tobacco [...] 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 * Mayra Salamanca [...] 2:05 PM CDT Spoke with Swapna at Psychiatric office , no other labs were drawn [...] he just had a BMP). * Sonny Malodnado LPN - 01/10/2024 3:11 PM CDT Bmp was done 12-31-23 with his primary cares office . Please see other note below about other labs that will be done. * Shiloh Marshall - 01/10/2024 2:29 PM CDT Labs received from [facility], sent to be abstracted. * Sonny Maldonado LPN - 01/10/2024 9:52 AM CDT Pt has appt now with his pcp orders faxed to Ronel at [phone] * Sonny Maldonado LPN - 01/02/2024 1:09 PM CDT Called pt to see if labs have been done . And he states no not a lipid barrientos but he feels like other labs were done at [facility] in [facility]. He sees his pcp on 01-08-24 and he will have jose guadalupe lab work faxed to our office fax number [phone] given to the pt. * Sonny Maldonado LPN - 12/26/2023 8:33 AM CST Left message for pt to call back. FERTILITY SPECIALIST * Anju Oneal LPN - 12/11/2023 2:55 PM CST Lab orders and reminder letter printed and mailed to patient's home. Will check status again. FERTILITY SPECIALIST * Mayra Salamanca LPN - 12/10/2023 12:55 PM CST Left message for patient to return call, checking to see if labs have been completed . FERTILITY SPECIALIST * Mayra Salamanca LPN - 12/07/2023 9:25 AM CST Left message for patient to return call, checking to see if labs have been completed . FERTILITY SPECIALIST * Sonny Maldonado LPN - 11/30/2023 9:27 AM CST Left pt a message to have lab work done. FERTILITY SPECIALIST * Sonny Maldonado LPN - 11/30/2023 9:27 AM CST ----- Message from MARIO Mendenhall sent at 11/06/2023 9:45 AM SOIL FERTILITY SPECIALIST ----- Regarding: CBC, CMP, Lipid- pt plans to have done late october FERTILITY SPECIALIST documented in this encounter Plan of Treatment Not on file documented as of this encounter Visit Diagnoses Diagnosis Mixed hyperlipidemia- Primary documented in this encounter Care Teams Clinical Operations Manager Relationship Specialty Start Date End Date Denisha Hansen PA [address] [place] [address] PCP - General PHYSICIAN SCIENTIST IMMUNOLOGY 10/24/23 Joann Norris ANP-BC [address] [facility] [address] [place] [address] [place] Welt Rougher NURSE PRACTITIONER 02/28/17 documented as of this encounter
--- OUTSIDE RECORDS SUMMARY | 2024-10-26 10:03 | XMS_ITS | Clinical Summary ---
Author Organization [facility] Address [address] [place] [address]. [place], [place] [address] [place] [address] Care Team Providers Care Scrap Crane Operator Name Role Phone Jimmy Joann Wagner [facility]- Unavailable [phone] Denisha Hansen Primary Care Provider [phone] Allergies Active Allergy Reactions Criticality Noted Date [...] Chest pain 05/21/2018 CVA (cerebral vascular accident) ([facility]/HC C) 10/22/2009 CAD (coronary artery disease) Diabetic retinopathy ([facility]) Hyperlipidemia Hypertension Family History Medical History Relation [...] 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 ??No evidence of infiltrate or effusion.. ??Mild emphysematous change. 2. ??No pathologic pulmonary nodules. ??Stable nonpathologic sized mediastinal lymph nodes.. 3. ??Advanced coronary artery calcifications with stents. Referred By: DENISHA HANSEN Interpreted By: Lewis Luther MD, 12/19/2023 5:48 AM Narrative 12/19/2023 5:56 AM SALES TRAINING MANAGER EXAMINATION: CT CHEST WITHOUT CONTRAST EXAM DATE/TIME: [...] Most Recently Relevant to Health Maintenance Insurance [facility] [employer] Advance Directives * Full Code (Latest Code Status on File) Date Activated Date Inactivated Comments 05/21/2018 4:55 PM 05/22/2018 6:02 PM Care Teams Scrap Crane Operator Relationship Specialty Start Date End Date Denisha Hansen PA [address] [place] [address] PCP - General PHYSICIAN BEAUTY CULTURIST 10/24/23 Joann Marquez, [facility]- [address] [facility] [address] [place] [address] Cardinal Chronometer Adjuster NURSE PRACTITIONER 02/28/17
--- OUTSIDE RECORDS SUMMARY | 2024-10-26 10:03 | XMS_ITS | Encounter Summary ---
Author Organization [facility] Address [facility]. 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
--- OUTSIDE RECORDS SUMMARY | 2024-10-26 10:04 | XMS_ITS | Encounter Summary ---
Author Organization [facility] Address Counts include 234 beds at the [facility]6 [facility] [place] [address] [place] [address] Care Team Providers Care Cath Lab Name Role Phone Dennis Doran MD Primary Care Provider [phone] Joann Marquez Unavailable Reason for Visit * Reason Onset Date Comments Reschedule 10/01/2023 Refill Request 10/01/2023 Encounter Details Date Type Department Care Team ([facility] st Contact Info) Description 10/01/2023 Telephone [place] [facility] [address] [place] [address] Joann Marquez ANP-BC [address] [facility] [address] [place] [address] Reschedule; Refill Request Social History [...] 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 GHT MANAGER * Rosana Felipe - 10/02/2023 2:30 PM CST Patient checked with [facility] in [place], they did not receive his refill for his clopidogrel. Patient asked if you could send it through again. His call back # is [phone]. GHT MANAGER * Amanda Maldonado LPN - 10/01/2023 12:31 PM CST Pt aware . GHT MANAGER * MARIO Mendenhall - 10/01/2023 11:20 AM CST Please provide patient one more supply of plavix 75mg daily to last until his next appointment. Please tell him if he reschedules again he will need to get further refill from his primary provider. If he runs out of plavix he should start an 81mg aspirin daily in its place. GHT MANAGER GHT MANAGER * Loretta Kaur - 10/01/2023 11:12 AM CST Patient called and rescheduled his follow up. Rescheduled to 11/06/2023 at 8:30 am with Joann Gaffney. Patient needs refill on his Clopidogrel called into [facility] in [place] GHT MANAGER documented in this encounter Plan of Treatment Not on file documented as of this encounter Visit Diagnoses Not on filedocumented in this encounter Care Teams Cath Lab Relationship Specialty Start Date End Date Dennis Doran MD PCP - General INTERNAL MEDICINE 02/28/17 10/23/23 Joann Marquez, ANP- [address] [facility] [address] [place] [address] Coram Paper Reclaiming Machine Operator NURSE PRACTITIONER 02/28/17 documented as of this encounter
--- OUTSIDE RECORDS SUMMARY | 2024-10-26 10:04 | XMS_ITS | Encounter Summary ---
Author Organization [facility] Address [address] [place] [address]. [place], [place] [address] [place] [address] Care Team Providers Care Er Physician Name Role Phone Joann Marquez [facility]- Unavailable [phone] Denisha Hansen Primary Care Provider [phone] Reason for Referral * Imaging (Routine) - Closed Specialty Diagnoses / Procedures Referred By Cheyanne puentes Referred To Contact RADIOLOGY Diagnoses Localized swelling, mass and lump, neck Procedures CT SOFT TISSUE NECK WO CON Denisha Hansen PA [facility] [place] [address] Phone: tel: fax: Referral ID Status Reason Start Date Expiration Date Visits Re quested Visits Authorized [id number] Closed CT 09/27/2023 12/26/2023 1 1 TION AGENT Reason for Visit * Imaging (Routine) - Closed Specialty Diagnoses / Procedures Referred By Cheyanne puentes Referred To Contact RADIOLOGY Diagnoses Localized swelling, mass and lump, neck Procedures CT SOFT TISSUE NECK WO CON Denisha Hansen PA [facility] [place] [address] Phone: tel: fax: Referral ID Status Reason Start Date Expiration Date Visits Re quested Visits Authorized [id number] Closed CT 09/27/2023 12/26/2023 1 1 Encounter Details Date Type Department Care Team (Latest Contact Info) Description 10/24/2023 8:55 AM ADOPTION AGENT - 10/24/2023 11:59 PM ADOPTION 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 10/28/2021 06/11/20 24 documented as of this encounter Plan of Treatment Not on file documented as of this encounter Procedures Procedure Name Priority Date/Time Associated Diagnosis Comments CT SOFT TISSUE NECK WO CON Routine 10/24/2023 9:30 AM ADOPTION AGENT Localized swelling, mass and lump, neck documented in this encounter Results * CT SOFT TISSUE NECK WO CON (10/24/2023 9:30 AM ADOPTION AGENT) Anatomical Region Laterality Modality Neck Computed Tomogra phy 10/26/2023 9:20 AM ADOPTION AGENT Impressions 10/26/2023 9:28 AM ADOPTION AGENT IMPRESSION: 1. Well circumscribed low density 1.8 [...] 10/26/2023 9:20 AM Narrative 10/26/2023 9:28 AM ADOPTION AGENT INDICATION: Anterior neck lump. EXAMINATION: Unenhanced CT [...] neck documented in this encounter Care Teams Er Physician Relationship Specialty Start Date End Date Denisha Hansen PA [address] [place] [address] PCP - General PHYSICIAN MANAGER RESPIRATORY CARE 10/24/23 Joann Marquez, ANP- [address] [facility] [facility] [address] [place] [address] [place] Photocopying Machine Operator NURSE PRACTITIONER 02/28/17 documented as of this encounter
--- OUTSIDE RECORDS SUMMARY | 2024-10-26 10:04 | XMS_ITS | Encounter Summary ---
Author Organization [facility] Address [facility] [place] [address] [place] [address] Care Team Providers Care Accounting Machine Servicer Name Role Phone Dennis Doran MD Primary Care Provider [phone] Joann Marquez-ERICA Unavailable Reason for Visit * Reason Onset Date Comments Medication Request 10/01/2023 Encounter Details Date Type Department Care Team ([facility] st Contact Info) Description 10/01/2023 Telephone [facility] ld [address] [place] [address] Joann Marquez, AURELIANO-BC [address] 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 AL LINEMAN * Rosana Felipe - 10/01/2023 9:20 AM CST PCCLVOICEMAILMESSAGEPCCL VOICE MAIL DATE/TIME:10/01/23 @ 9:16am CALLER: patient #: [phone] PROVIDER/NEW PT: Joann Marquez REASON FOR CALL: vm says patient needs a prescription refill and needs to schedule an appointment REQUEST HANDLED AND HOW: IF NOT HANDLED, ENCOUNTER NOTE SENT TO: message to nurse board AL LINEMAN documented in this encounter Plan of Treatment Not on file documented as of this encounter Visit Diagnoses Not on filedocumented in this encounter Care Teams Accounting Machine Servicer Relationship Specialty Start Date End Date Dennis Doran MD PCP - General INTERNAL MEDICINE 02/28/17 10/23/23 Joann Marquez, ANP- [address] [facility] [address] [place] [address] [place] Driver NURSE PRACTITIONER 02/28/17 documented as of this encounter
--- OUTSIDE RECORDS SUMMARY | 2024-10-26 10:04 | XMS_ITS | Encounter Summary ---
Author Organization [facility] Address [address] [place] [address]. 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 [facility] [place] ?[address] [place], [place] ??[address] ? Test Date: ?2023-11-06 Pat Name: ? TAKN KOWALSKI ?Department: ?? 105 ? Room: ? Gender: ? Male ? Roller Painter: ?? bjs : ?1975 ? Requested By: ABHINAV GOULD Order Number: [id number] ?Reading MD: ?? Abhinav Gould ? Measurements Intervals ?[place] ? Rate: ? 74 ? P: ?33 ND: ? 130 ?QRS: ?30 QRSD: ? 84 ? T: ?55 QT: ? 373 ? QTc: ?414 ? Interpretive Statements SINUS RHYTHM po SEPTAL MYOCARDIAL INFARCTION, OF INDETERMINATE AGE H FOODS CAKE DECORATOR Procedure Note Abhinav Gould MD - 11/06/2023 [facility], [place] [address] [place] [address] Test Date: 2023-11-06 Pat Name: TANK KOWALSKI Department: 105 Room: Gender: Male Roller Painter: [facility] : 1975 Requested By: ABHINAV GOULD Order Number: [id number] Reading MD: Abhinav Gould Measurements Intervals [facility] Rate: 74 P: 33 ND: 130 QRS: 30 QRSD: 84 T: 55 QT: 373 QTc: 414 Interpretive Statements SINUS RHYTHM po SEPTAL MYOCARDIAL INFARCTION, OF INDETERMINATE AGE H FOODS CAKE DECORATOR Abhinav Gould MD PROCEDURES-ORDERABLE NO CHARGE F inal Result [facility] documented in this encounter Visit Diagnoses Diagnosis Coronary artery disease involving pit river coronary artery of pit river heart without angina pectoris- Primary Coronary artery disease of [place] artery of [place] heart with stable angina pectoris (CMS/HCC)- Primary Mixed hyperlipidemia Primary hypertension Unspecified essential hypertension Tobacco use Tobacco use disorder documented in this encounter Care Teams Bulk Pallet Builder Relationship Specialty Start Date End Date Denisha Hansne PA [address] [place] [address] PCP - General PHYSICIAN FIELD ARTILLERY OPERATIONS SPECIALIST 10/24/23 Joann Marquez, ANP- [address] [facility] [address] [place] [address] [place] Test Preparation Tutor NURSE PRACTITIONER 02/28/17 documented as of this encounter
--- OUTSIDE RECORDS SUMMARY | 2024-10-26 10:04 | XMS_ITS | Encounter Summary ---
Author Organization [facility] Address [facility]. 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
--- OUTSIDE RECORDS SUMMARY | 2024-10-26 10:04 | XMS_ITS | Encounter Summary ---
Author Organization [facility] Address [address] [place] [address]. [place] [address] [place] [address] Care Team Providers Care Rug Designer Name Role Phone Joann Marquez-BC Unavailable [phone] Denisha Hansen Primary Care Provider [phone] Reason for Visit * Reason Comments Follow Up Encounter Details Date Type Department Care Team ([facility] st Contact Info) Description 11/06/2023 8:30 AM ICE SKATING TEACHER Office [facility] [address] [place] [address] Joann Marquez, AURELIANO-BC [address] [facility] [address] [place] [address] Follow Up Social History Tobacco Use Types [...] 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 Not on file Not on file Not on file Not on file Not on file Not on file documented as of this encounter Last Filed Vital Signs Vital Sign Reading Time Taken Comments Blood Pressure 132/76 11/06/2023 8:36 AM ICE SKATING TEACHER Pulse 81 11/06/2023 8:36 AM ICE SKATING TEACHER Temperature - - Respiratory Rate 16 11/06/2023 8:36 AM ICE SKATING TEACHER Oxygen Saturation 96% 11/06/2023 8:36 AM ICE SKATING TEACHER Inhaled Oxygen Concentration - - Weight 90.3 kg (199 lb) 11/06/2023 8:36 AM ICE SKATING TEACHER Height 180.3 cm (5' 11 ) 11/06/2023 8:36 AM ICE SKATING TEACHER Body Mass Index 27.75 11/06/2023 8:36 AM ICE SKATING TEACHER documented in this encounter Progress Notes * AURELIANO Mendenhall- - 11/06/2023 8:30 AM CST From: Joann Marquez RADIOISOTOPE TECHNOLOGIST Collaborating Physician: Abhinav Gould MD Dear Dr. DENISHA HANSEN PA: Tank Kowalski was seen on 11/06/2023 at the [facility]. History of Present Illness: Tank Kowalski [...] any antiplatelet therapy until he presented with HI a few years later. He said in [...] if cardiac concerns arise. Sincerely, Joann Marquez, RADIOISOTOPE TECHNOLOGIST- Medications: Current Outpatient Medications: atorvastatin (LIPITOR) 80 [...] daily., Disp: , Rfl: vitamin D2, ergocalciferol, 32208 UNITS capsule, Take 50,000 Units by mouth once a week., Disp: , Rfl: Review of patient's allergies indicates: Allergen Reactions Guaifenesin Swelling Simvastatin Myalgias Past Medical History: Diagnosis Date Anxiety CAD (coronary artery disease) Cancer ([facility]/HCC) ([facility]) Melanoma Chronic kidney disease CKD (chronic kidney disease) Colitis CVA (cerebral vascular accident) ([facility]) ([facility]) 2009 Diabetes ([facility]/HCC) (CMS/[facility]) Diabetic retinopathy ([facility]/HCC) ([facility]) GERD (gastroesophageal reflux disease) Glaucoma History of coronary artery stent placement 2013 Hyperlipidemia Hypertension Lumbago Myocardial infarction ([facility]) Personal history of MRSA (methicillin resistant Staphylococcus [...] Comments: Diagnoses/Impression: 1. Coronary artery disease of cahto artery of cahto heart with stable angina pectoris (CMS/HCC) CBC W/DIFF AUTOMATED COMPREHENSIVE METABOLIC PANEL LIPID PANEL 2. Mixed hyperlipidemia CBC W/DIFF AUTOMATED COMPREHENSIVE METABOLIC PANEL LIPID PANEL 3. Primary hypertension CBC W/DIFF AUTOMATED COMPREHENSIVE METABOLIC PANEL LIPID PANEL 4. Tobacco use PCP: KAMI REILLY SKATING TEACHER documented in this encounter Plan of Treatment Not on file documented as of this encounter Procedures Procedure Name Priority Date/Time Associated Diagnosis Comments ELECTROCARDIOGRAM (NON MIDMARK ACQUIRED) Routine 11/06/2023 8:44 AM ICE SKATING TEACHER Coronary artery disease of cahto artery of cahto heart with stable angina pectoris documented in [...] 6.2 6.1 - 8.1 01/15/2024 Joann Marquez [facility] [...] Re sult * ELECTROCARDIOGRAM (11/06/2023 8:44 AM ICE SKATING TEACHER) 11/06/2023 8:44 AM ICE SKATING TEACHER Narrative [facility] - 11/06/2023 9:02 AM ICE SKATING TEACHER ? [facility] [place] ?[address] [place], [place] ??[address] ? Test Date: ?2023-11-06 Pat Name: ? TANK CAMPBELLJOSE ANGEL ?Department: ?? 105 ? Room: ? Gender: ? Male ? Yacht Hand: ?? bjs : ?1975 ? Requested By: ABHINAV GOULD Order Number: [id number] ?Reading MD: ?? Abhinav Gould ? Measurements Intervals ?[place] ? Rate: ? 74 ? P: ?33 [place]: ? 130 ?QRS: ?30 QRSD: ? 84 ? T: ?55 QT: ? 373 ? QTc: ?414 ? Interpretive Statements SINUS RHYTHM po SEPTAL MYOCARDIAL INFARCTION, OF INDETERMINATE AGE SKATING TEACHER Procedure Note Abhinav Gould MD - 11/06/2023 [facility], [facility] [address] [place] [address] Test Date: 2023-11-06 Pat Name: TANK KOWALSKI Department: 105 Room: Gender: Male Yacht Hand: fili : 1975 Requested By: ABHINAV GOULD Order Number: [id number] Reading MD: Abhinav Gould Measurements Intervals [place] Rate: 74 P: 33 [place]: 130 QRS: 30 QRSD: 84 T: 55 QT: 373 QTc: 414 Interpretive Statements SINUS RHYTHM po SEPTAL MYOCARDIAL INFARCTION, OF INDETERMINATE AGE SKATING TEACHER us Abhinav Gould MD PROCEDURES-ORDERABLE NO CHARGE F inal Result [facility] documented in this encounter Visit Diagnoses Diagnosis Coronary artery disease of cahto artery of cahto heart with stable angina pectoris (CMS/HCC)- Primary Mixed hyperlipidemia Primary hypertension Unspecified essential hypertension Tobacco use Tobacco use disorder documented in this encounter Care Teams Rug Designer Relationship Specialty Start Date End Date Denisha Hansen PA [address] [place] [address] PCP - General PHYSICIAN PLASTIC DESIGN APPLIER 10/24/23 Joann Marquez, ANP-BC [address] [facility] [address] [place] [address] [place] Outside Sales Associate NURSE PRACTITIONER 02/28/17 documented as of this encounter
--- OUTSIDE RECORDS SUMMARY | 2024-10-26 10:04 | XMS_ITS | Encounter Summary ---
Author Organization [facility] Address [facility]. 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 Not on file Not on file Not on file Not on file Not on file Not on file documented as of this encounter Plan of Treatment Not on file documented as of this encounter Visit Diagnoses Not on filedocumented in this encounter Care Teams Patient Relations Liaison Relationship Specialty Start Date End Date Denisha Hansen PA [address] [place] [address] PCP - General PHYSICIAN SCALE ASSEMBLY SET UP WORKER 10/24/23 Joann Marquez ANP-BC [address] [facility] [address] [place] [address] [place] Human Resources Analyst NURSE PRACTITIONER 02/28/17 documented as of this encounter
--- OUTSIDE RECORDS SUMMARY | 2024-10-26 10:05 | XMS_ITS | Encounter Summary ---
Author Organization [facility] Address [address] [place] [address]. 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
--- OUTSIDE RECORDS SUMMARY | 2024-10-26 10:05 | XMS_ITS | Encounter Summary ---
Author Organization [facility] Address [address] [place] [address]. [place], [place] [address] [place] [address] Care Team Providers Care Cable Installation Manager Name Role Phone Dennis Doran MD Primary Care Provider [phone] Joann Marquez [facility]- Unavailable [phone] Reason for Visit * Reason Onset Date Comments Information 04/20/2023 Encounter Details Date Type Department Care Team (Late st Contact Info) Description 04/20/2023 Telephone [facility] [address] [place] [address] Dieter Arechiga MD [address] [address] Information Social History Tobacco Use [...] 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 Zamora to review EKG and call Dr. Doran's office back- note also routed as high importance through [email or web address]. * Loretta Kaur - 04/20/2023 3:39 PM CDT Fax received and scanned. call out operator Dr. Zamora to take a look at. * Kelsey Marsh LPN - 04/20/2023 1:[address] Arechiga is out for 2 weeks (not sure if you told them that) So when you get the EKG, please scan and then send this message to Dr Zamora office (laborer demolition) * Loretta Kaur - 04/20/2023 1:13 PM CDT Received a call from [place] at primary care in [place] [phone] called they are faxing over a EKG that they have on this patient for Dr. Arechiga to look at. documented in this encounter Plan of Treatment Not on file documented as of this encounter Visit Diagnoses Not on filedocumented in this encounter Care Teams Cable Installation Manager Relationship Specialty Start Date End Date Dennis Doran MD PCP - General INTERNAL MEDICINE 02/28/17 10/23/23 Joann Marquez, ANP- [address] [facility] [address] [place] [address] [place] Ecologist Technician NURSE PRACTITIONER 02/28/17 documented as of this encounter
--- OUTSIDE RECORDS SUMMARY | 2024-10-26 10:05 | XMS_ITS | Encounter Summary ---
Author Organization [facility] Address [address] [place] [address]. 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
--- OUTSIDE RECORDS SUMMARY | 2024-10-26 10:05 | XMS_ITS | Encounter Summary ---
Author Organization [facility] Address [facility] [place] [address] [place] [address] Care Team Providers Care Capacity Management Specialist Name Role Phone Dennis Doran MD Primary Care Provider [phone] Joann Marquez-ERICA Unavailable Reason for Visit * Reason Onset Date Comments Appointment Request 05/28/2023 Encounter Details Date Type Department Care Team ([facility] st Contact Info) Description 05/28/2023 [facility]phone [facility] [address] [place] [address] Joann Marquez, AURELIANO-BC [address] 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 Patient agreed to date, time, and location. [...] Primary documented in this encounter Care Teams Capacity Management Specialist Relationship Specialty Start Date End Date Dennis Doran MD PCP - General INTERNAL MEDICINE 02/28/17 10/23/23 Joann Marquez ANP- [address] [facility] [place] [place] [address] [place] [address] [place] Local Company Truck Driver NURSE PRACTITIONER 02/28/17 documented as of this encounter
--- OUTSIDE RECORDS SUMMARY | 2024-10-26 10:05 | XMS_ITS | Encounter Summary ---
Author Organization [facility] Address [address] [place] [address]. [place], [place] [address] [place] [address] Care Team Providers Care Drug And Alcohol Counsellor Name Role Phone Dennis Crump MD Primary Care Provider [phone] Joann Marquez [facility] Unavailable [phone] Reason for Referral * Imaging (Routine) - Closed Specialty Diagnoses / Procedures Referred By Cheyanne puentes Referred To Contact RADIOLOGY Diagnoses Abnormal cardiovascular stress test Procedures [facility] Tete Malagon MD [address] [place] [address] Phone: tel: fax: Referral ID Status Reason Start Date Expiration Date Visits Re quested Visits Authorized [id number] Closed 01/03/2022 04/05/2022 1 1 Reason for Visit * Imaging (Routine) - Closed Specialty Diagnoses / Procedures Referred By Cheyanne puentes Referred To Contact RADIOLOGY Diagnoses Abnormal cardiovascular stress test Procedures [facility] Tete Malagon MD [address] [place] [address] Phone: tel: fax: Referral ID Status Reason Start Date Expiration Date Visits Re quested Visits Authorized [id number] Closed 01/03/2022 04/05/2022 1 1 Encounter Details Date Type Department Care Team (Latest Contact Info) Description 01/09/2022 6:58 AM CDT - 01/09/2022 12:47 PM CDT Hospital Encounter [facility] Last Remodeler Repairer Pre/Post [address] [place] [address] Tete Hollis MD [address] [place], [place] [address] Discharge Disposition: Home or Self Care (Routine [...] 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 vitamin D2 (ergocalciferol) 86779 UNITS capsule Commonly known as: DRISDOL Take 50,000 Units by mouth once a week. FOLLOW UP: Follow up with Dr. Arechiga in 4 weeks. Signed Tete Hollis MD, [facility] 0:22 AM Cc: DENNIS CRUMP MD.pcp documented [...] not operate equipment, such as an ATV, hospitality specialist, chainsaw, or motorcycle for 48 hours. 7. Notify your ceo & board director of swelling or drainage at the site, or numbness, tingling, coldness, or cramping in hand/arm during rest or activity. Soreness is normal. Take Tylenol for pain. 8. Notify your ceo & board director or your primary care physician if you [...] call your primary care physician or your ceo & board director [phone]. documented in this encounter Medications at Time [...] 1 11/02/2021 06/04/20 24 vitamin D2, ergocalciferol, 16666 UNITS capsule Take 50,000 Units by mouth once a week. 10/28/2021 06/11/20 24 documented as of this encounter H&P Notes * Tete Hollis MD - 01/09/2022 8:05 AM CDT HISTORY AND PHYSICAL INTERVAL NOTE: Risks, benefits and alternatives of cardiac catheterization were discussed with the patient and/or family member/personal containers sales representative including but not limited to bleeding, arrhythmias, allergic reactions to medications/contrast, acute renal failure which may require dialysis, acute myocardial infarction, emergency coronary bypass surgery, stroke and . Questions were answered to the patient/family/personal containers sales representative. Patient agreed to proceed. Procedure will be performed using a transradial approach. Need for common femoral access in less than 5% of cases as well as vascular complications including spasm, vessel closure in less than 3% of cases and arm pain in less than 0.3% of procedures was discussed with patient. Source Note - Dieter Wade MD - 12/20/2021 10:30 AM CARE MANAGEMENT ASSISTANT Reason for Visit: Follow Up (CAD) History [...] Mr. Kowalski including the risks of mortality, CT, CVA, bleeding, infection, vascular comp lications and [...] Disp: , Rfl: ??? vitamin D2, ergocalciferol, 63108 UNITS capsule, Take 50,000 Units by mouth [...] Comments: Diagnoses/Impression: 1. Coronary artery disease involving otoe-[place]ouria coronary artery of otoe[place]ou[place] heart without angina pectoris 2. Primary hypertension 3. Hyperlipidemia, unspecified hyperlipidemia type 4. Tobacco use Referring Provider: Dennis Crump MD PCP: DENNIS CRUMP MD MANAGEMENT ASSISTANT documented in this encounter Procedure Notes * Tete Hollis MD - 01/09/2022 10:12 AM CDT Last Remodeler Repairer Post-Procedural Documentation FLOWER SHOP LABORER/DESIGNER: Tete Hollis MD, [facility], [facility] INDICATION: Abnormal nuclear stress test PROCEDURE: Left [...] Aggresive risk factor mofidication. Tete Hollis MD, [facility] January 09, 2022 documented in this encounter Plan of Treatment Not on file documented as of this encounter Procedures Procedure Name Priority Date/Time Associated Diagnosis Comments XA C POSS Routine 01/09/2022 10:12 AM CDT Abnormal cardiovascular stress test ECG 12-LEAD STAT 01/09/2022 7:31 AM CDT documented in this encounter Results * [facility] POSS (01/09/2022 10:12 AM CDT) Anatomical Region Laterality Modality Cardiac Last Remodeler Repairer 01/09/2022 9:30 AM CDT us Tete Hollis MD COMMUNICATIONS OFFICER Final Result * ECG 12 lead (01/09/2022 7:31 AM CDT) 01/09/2022 7:31 AM CDT Narrative [facility] - 01/09/2022 4:32 PM CDT ?[address], [place] ??[address] ? Test Date: ?2022-01-09 Pat Name: ? TANK KOWALSKI ?Department: ? Room: ? [id number] Gender: ? Male ? Residential Real Estate Assistant: ?? : ?1975 ? Requested By: TETE HOLLIS Order Number: [id number] ? Reading : ?? Abbie Wilson ? Measurements Intervals ?[place] ? Rate: ? 70 ? P: ?22 AL: ? 144 ?QRS: ?-11 QRSD: ? 98 ? T: ?41 QT: ? 403 ? QTc: ?435 ? Interpretive Statements SINUS RHYTHM Procedure Note Abbie Wilson MD - 01/09/2022 [address] [place] [address] Test Date: 2022-01-09 Pat Name: TANK KOWALSKI Department: Room: [id number] Gender: Male Residential Real Estate Assistant: Errol : 1975 Requested By: TETE HOLLIS Order Number: [id number] Reading MD: Abbie Wilson Measurements Intervals [place] Rate: 70 P: 22 AL: 144 QRS: -11 QRSD: 98 T: 41 QT: 403 QTc: 435 Interpretive Statements SINUS RHYTHM us Tete Hollis MD ECG ORDERABLES Final Result [facility] documented in this encounter Visit Diagnoses [...] order) documented in this encounter Care Teams Drug And Alcohol Counsellor Relationship Specialty Start Date End Date Dennis Crump MD PCP - General INTERNAL MEDICINE 02/28/17 10/23/23 Joann Marquez, ANP-BC [address] [facility] [address] [place] [address] [place] Machine Sweeper Brush Maker NURSE PRACTITIONER 02/28/17 documented as of this encounter
--- OUTSIDE RECORDS SUMMARY | 2024-10-26 10:05 | XMS_ITS | Encounter Summary ---
Author Organization [facility] Address [address] [place] [address]. [place], [place] [address] [place] [address] Care Team Providers Care Stoker Erector Name Role Phone Dennis Doran MD Primary Care Provider [phone] 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 * Collette Giles RN - [...] documented as of this encounter Care Teams Stoker Erector Relationship Specialty Start Date End Date Dennis Doran MD PCP - General INTERNAL MEDICINE 02/28/17 10/23/23 Joann Marquez ANP- [address] [place] [address] [address] [place] [address] [place] Heavy Duty Custodian NURSE PRACTITIONER 02/28/17 documented as of this encounter
--- OUTSIDE RECORDS SUMMARY | 2024-10-26 10:05 | XMS_ITS | Encounter Summary ---
Author Organization [facility] Address [address] [place] [address]. 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
--- OUTSIDE RECORDS SUMMARY | 2024-10-26 10:05 | XMS_ITS | Encounter Summary ---
Author Organization [facility] Address [address] [place] [address]. 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
--- OUTSIDE RECORDS SUMMARY | 2024-10-26 10:05 | XMS_ITS | Encounter Summary ---
Author Organization [facility] Address [address] [place] [address]. [place], [place] [address] [place] [address] Care Team Providers Care Washer Engineer Helper Name Role Phone Dennis Doran MD Primary Care Provider [phone] Joann Marquez [facility]- Unavailable [phone] Reason for Visit * Reason Onset Date Comments Lab Results 05/05/2022 Returned Call 05/05/2022 Encounter Details Date Type Department Care Team (Late st Contact Info) Description 05/05/2022 Telephone [facility] ield [address] [place] [address] Dieter Arechiga MD [address] [address] Lab Results; Returned Call Social [...] 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 Not on file [...] contraindication to fenofibrate, nicotinic acid or other [place] 3 acid ethyl esters(generic Lovaza) * Kelsey [...] VM DATE/TIME:05/08/22 @ 1259pm CALLER: patient #: [phone] PROVIDER/NEW PT: Geni REASON FOR CALL: returning [...] Results * MAGNESIUM (OUTSIDE LAB) (04/26/2022) Pathologist [facility] MAGNESIUM 1.9 04/26/2022 Denisha MCCLURE LAB-OUTSIDE/ABSTRACTED Final Result * ALBUMIN URINE RANDOM (04/26/2022) [facility] MICROALBUMIN (U) 262.1 CREATININE RANDOM (U) 90 MICROALB/CREAT 2,912 >50 Comment:note 09/20/21 was 40 70 URINE SPECIMEN / Unknown 04/26/2022 Denisha MCCLURE URINE ORDERABLES Final Result * CBC (OUTSIDE LAB) (04/26/2022) [facility] WBC 6.3 HGB 13.7 HCT 42.0 RBC 4.63 04/26/2022 Denisha MCCLURE LAB-OUTSIDE/ABSTRACTED Final Result * THYROXINE, FREE (FT4) (04/26/2022) [facility] FREE T4 0.9 04/26/2022 Denisha MCCLURE LABORATORY Final Result * (ABNORMAL) TSH (OUTSIDE LAB) (04/26/2022) [facility] TSH 7.87(A) <=4.50 04/26/2022 Denisha MCCLURE LAB-OUTSIDE/ABSTRACTED Final Result * (ABNORMAL) CMP (OUTSIDE LAB) (04/26/2022) [facility] SODIUM S/P/B 136 POTASSIUM S/P/B 4.5 CHLORIDE [...] type documented in this encounter Care Teams Washer Engineer Helper Relationship Specialty Start Date End Date Dennis Doran MD PCP - General INTERNAL MEDICINE 02/28/17 10/23/23 Joann Marquez ANP- [address] [facility] [address] [place] [address] [facility] Can Sorter NURSE PRACTITIONER 02/28/17 documented as of this encounter
--- OUTSIDE RECORDS SUMMARY | 2024-10-26 10:05 | XMS_ITS | Encounter Summary ---
Author Organization [facility] Address [address] [place] [address]. [place], [place] [address] [place] [address] Care Team Providers Care Abrasive Mixer Helper Name Role Phone Dennis Doran MD Primary Care Provider [phone] Joann Marquez [facility] Unavailable [phone] Reason for Referral * Imaging (Routine) - Closed Specialty Diagnoses / Procedures Referred By Cheyanne puentes Referred To Contact RADIOLOGY Diagnoses Chest pain Procedures CT CHEST W Denisha Liu PA Phone: tel: fax: Referral ID Status Reason Start Date Expiration Date Visits Re quested Visits Authorized [id number] Closed 01/10/2022 04/12/2022 2 2 Reason for Visit * Imaging (Routine) - Closed Specialty Diagnoses / Procedures Referred By Cheyanne puentes Referred To Contact RADIOLOGY Diagnoses Chest pain Procedures CT CHEST W Denisha Liu PA Phone: tel: fax: Referral ID Status Reason Start Date Expiration Date Visits Re quested Visits Authorized [id number] Closed 01/10/2022 04/12/2022 2 2 Encounter Details Date Type Department Care Team (Latest Contact Info) Description 01/20/2022 7:59 AM CDT - 01/20/2022 11:59 PM CDT 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 Not on file Not [...] 1 11/02/2021 06/04/20 24 vitamin D2, ergocalciferol, 14580 UNITS capsule Take 50,000 Units by mouth [...] - 1.2 MG/DL 01/20/2022 5:29 PM CDT [facility] 01/20/2022 8:59 AM CDT Denisha MCCLURE LABORATORY Final Result [facility] [address] [place] [address], * CT CHEST W CON (01/20/2022 8:33 [...] Arm documented in this encounter Care Teams Abrasive Mixer Helper Relationship Specialty Start Date End Date Dennis Doran MD PCP - General INTERNAL MEDICINE 02/28/17 10/23/23 Joann Marquez, ANP- [address] [facility] [address] [place] [address] [place] Front Office Coordinator NURSE PRACTITIONER 02/28/17 documented as of this encounter
--- OUTSIDE RECORDS SUMMARY | 2024-10-26 10:05 | XMS_ITS | Encounter Summary ---
Author Organization [facility] Address [address] [place] [address]. 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 No / Unsure 12/19/2021 10:29 AM FLAME CUTTER documented as of this encounter Plan of Treatment Not on file documented as of this encounter Visit Diagnoses Not on filedocumented in this encounter Additional Health Concerns Infection Onset Date Last Indicated Resolved Time COVID-19 Rule Out 01/06/2022 01/06/2022 01/07/2022 2:32 PM CDT documented as of this encounter Care Teams Backend Tester Relationship Specialty Start Date End Date Dennis Doran MD PCP - General INTERNAL MEDICINE 02/28/17 10/23/23 Denisha Hansen PA [address] [place] [address] PCP - General PHYSICIAN TRAFFIC MAINTENANCE OFFICER 10/24/23 Joann Marquez, ANP- [address] [place] [address] [address] [place] [address] [place] Folded Cloth Taper NURSE PRACTITIONER 02/28/17 documented as of this encounter
--- OUTSIDE RECORDS SUMMARY | 2024-10-26 10:05 | XMS_ITS | Encounter Summary ---
Author Organization [facility] Address [address] [place] [address]. [place] [address] [place] [address] Care Team Providers Care Director Stage Name Role Phone Dennis Doran MD Primary Care Provider [phone] Joann Marquez-ERICA Unavailable [phone] Encounter Details Date Type Department Care Team ([facility] st Contact Info) Description 05/29/2023 Abstract [facility] [address] [place] [address] Joann Marquez ANP-BC [address] 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 Not on file Not [...] ESTIMATE 26 Narrative Resulting Agency Comment Result [facility] Dennis Doran MD LABORATORY Final Result * (ABNORMAL) HEMOGLOBIN, GLYCOSYLATED (04/20/2023) HGB A1C 8.3(A) <=5.7 % Narrative Resulting Agency Comment Result [facility] Dennis Doran MD LABORATORY Final Result * THYROID STIM HORMONE, TSH (04/20/2023) TSH 2.71 Narrative Resulting Agency Comment Result [facility] Dennis Doran MD LABORATORY Final Result * MAGNESIUM (04/20/2023) MAGNESIUM 1.6 Narrative Resulting Agency Comment Result [facility] Dennis Doran MD LABORATORY Final Result * (ABNORMAL) LIPID PANEL (08/09/2022) CHOLESTEROL 239(A) <=200 TRIGLYCERIDES 353(A) <=150 HDL 34(A) >=40 LDL (CALCULATED) 151(A) <=70 Narrative Resulting Agency Comment Result [facility] us Dennis Doran MD LABORATORY Final Result documented in this encounter Visit Diagnoses Not on filedocumented in this encounter Care Teams Director Stage Relationship Specialty Start Date End Date Dennis Doran MD PCP - General INTERNAL MEDICINE 02/28/17 10/23/23 Joann Marquez, ANP- [address] [facility] [address] [place] [address] [place] Inspector Plug Seam NURSE PRACTITIONER 02/28/17 documented as of this encounter
--- OUTSIDE RECORDS SUMMARY | 2024-10-26 10:05 | XMS_ITS | Encounter Summary ---
Author Organization [facility] Address [address] [place] [address]. [place], [place] [address] [place] [address] Care Team Providers Care Molding Associate Name Role Phone Dennis Doran MD Primary Care Provider [phone] Joann Marquez [facility]- Unavailable [phone] Reason for Referral * Imaging (Routine) - Closed Specialty Diagnoses / Procedures Referred By Cheyanne puentes Referred To Contact RADIOLOGY Diagnoses Abnormal cardiovascular stress test Procedures [facility] Nima Hollis MD [address] [place] [address] Phone: tel: fax: Referral ID Status Reason Start Date Expiration Date Visits Re quested Visits Authorized [id number] Closed 01/03/2022 04/05/2022 1 1 L BOAT CAPTAIN Encounter Details Date Type Department Care Team (Late st Contact Info) Description 12/21/2021 Orders Only [facility] [address] [place] [address] Nima Hollis MD [address] [place] [address] Social History Tobacco Use Types [...] 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 No / Unsure 12/19/2021 10:29 AM CANAL BOAT CAPTAIN documented as of this encounter Plan of Treatment Not on file documented as of this encounter Results * [facility] POSS (01/09/2022 10:12 AM CDT) Anatomical Region Laterality Modality Cardiac Department Of Sociology Chair 01/09/2022 9:30 AM CDT Nima Hollis MD ROLL WINDER Final Result * (ABNORMAL) BASIC METABOLIC PANEL (01/06/2022 11:51 AM CDT) [facility] GLUCOSE 157(H) 70 - 99 MG/DL 01/06/2022 12:21 PM CDT [facility] BUN 38(H) 7 - 18 MG/DL 01/06/2022 12:21 PM CDT [facility] CREATININE S/P/B 2.29(H) 0.50 - 1.20 MG/DL 01/06/2022 12:21 PM CDT [facility] SODIUM S/P/B 137 136 - 145 MMOL/L 01/06/2022 12:21 PM CDT [facility] POTASSIUM S/P/B 4.6 3.5 - 5.1 MMOL/L 01/06/2022 12:21 PM CDT [facility] CHLORIDE S/P/B 106 100 - 108 MMOL/L 01/06/2022 12:21 PM CDT [facility] CO2 20.8(L) 21.0 - 32.0 MMOL/L 01/06/2022 12:21 PM CDT [facility] CALCIUM S/P/B 8.5 8.5 - 10.1 MG/DL 01/06/2022 12:21 PM CDT [facility] ANION GAP 10.2 5.0 - 15.0 MMOL/L 01/06/2022 12:21 PM CDT [facility] BUN CREATININE RATIO 16.6 6 - 26 01/06/2022 12:21 PM CDT [facility] EGFR NON-AFR. AMER. 33(L) >90 ML/MIN/1.7 3 M2 01/06/2022 12:21 PM CDT [facility] EGFR AFR. AMER. 38(L) >90 ML/MIN/1.7 3 M2 01/06/2022 12:21 PM CDT [facility] Comment: NOTE: eGFR is not calculated for patients <18 years of age. This is an estimated GFR (CKD EPI) and should not be used for calculating drug doses. 01/06/2022 11:5 1 AM CDT us Nima Hollis MD LABORATORY Final Result [address] [place] [address], * (ABNORMAL) CBC, AUTO, NO DIFF (01/06/2022 11:51 AM CDT) WBC 8.1 4.5 - 11.0 x10'3/uL 01/06/2022 12:25 PM CDT [facility] RBC 4.16(L) 4.5 - 5.9 x10'6/uL 01/06/2022 12:25 PM CDT [facility] HGB 12.6 12.0 - 16.0 G/DL 01/06/2022 12:25 PM CDT [facility] HCT 37.4 37.0 - 49.0 % 01/06/2022 12:25 PM CDT [facility] MCV 89.9 80.0 - 100.0 FL 01/06/2022 12:25 PM CDT [facility] MCH 30.3 26.0 - 34.0 PG 01/06/2022 12:25 PM CDT [facility] MCHC 33.7 31.0 - 37.0 G/DL 01/06/2022 12:25 PM CDT [facility] RDW 13.4 11.6 - 14.8 % 01/06/2022 12:25 PM CDT [facility] PLT 191 140 - 415 x10'3/uL 01/06/2022 12:25 PM CDT [facility] MPV 11.3 7.0 - 12.0 FL 01/06/2022 12:25 PM CDT [facility] 01/06/2022 11:5 1 AM CDT us Nima Hollis MD LABORATORY Final Result [facility] [address] [place] [address], documented in this encounter Visit Diagnoses Diagnosis Abnormal cardiovascular stress test- Primary Other nonspecific abnormal cardiovascular system function study documented in this encounter Care Teams Molding Associate Relationship Specialty Start Date End Date Dennis Doran MD PCP - General INTERNAL MEDICINE 02/28/17 10/23/23 Joann Marquez ANP- [address] [facility] [address] [place] [address] [employer] Teacher NURSE PRACTITIONER 02/28/17 documented as of this encounter
--- OUTSIDE RECORDS SUMMARY | 2024-10-26 10:05 | XMS_ITS | Encounter Summary ---
Author Organization [facility] Address [facility]6 [facility] [place] [address] [place] [address] Care Team Providers Care Manager Behavior Name Role Phone Dennis Doran MD Primary Care Provider [phone] Joann Marquez-BC Unavailable [phone] Reason for Visit * Reason Onset Date Comments Medication Request 06/20/2023 Encounter Details Date Type Department Care Team (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 Refill of clopidogrel 75 mg Q day. b [phone] 06-22-23 ok to refill plavix 75 mg 1 daily # 30 with no refills . Pt has appt next week Joann. Will give further refills then. .06-22-23 shantal peguero called [facility] script was filled. documented in this encounter Plan of Treatment Not on file documented as of this encounter Visit Diagnoses Not on filedocumented in this encounter Care Teams Manager Behavior Relationship Specialty Start Date End Date Dennis Doran MD PCP - General INTERNAL MEDICINE 02/28/17 10/23/23 Joann Marquez, ANP- [address] [facility] [address] [place] [address] [place] Sprinkler Fitter Helper NURSE PRACTITIONER 02/28/17 documented as of this encounter
--- OUTSIDE RECORDS SUMMARY | 2024-10-26 10:05 | XMS_ITS | Encounter Summary ---
Author Organization [facility] Address [address] [place] [address]. [place], [place] [address] [place] [address] Care Team Providers Care Field Map Editor Name Role Phone Dennis Doran MD Primary Care Provider [phone] Joann Marquez [facility]- Unavailable [phone] Reason for Visit * Reason Onset Date Comments Medication Information 05/29/2022 Encounter Details Date Type Department Care Team (Late st Contact Info) Description 05/29/2022 Telephone [facility] ield [address] [place] [address] Dieter Arechiga MD [address] [address] Medication Information Social History Tobacco [...] 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 See Dr. Arechiga note 05/05/22. ISSARY WORKER ISSARY WORKER * Kelsey Kirby LPN - 05/30/2022 2:07 PM CDT Called and spoke to pt, aware Vascepa was approved and pharmacy is aware. He agrees. * Kelsey Kirby LPN - 05/29/2022 2:01 PM CDT Received fax from [employer] To Get Approved For after Dr Arechiga did appeal and Vascepa approved from 05/28/22 to 05/28/23 Called pharmacy and they are aware and it went thru. Pt cost is $10.00 Left message for pt to call office. (let him know vascepa approved and can tile picker at pharmacy) documented in this encounter Plan of Treatment Not on file documented as of this encounter Visit Diagnoses Diagnosis Hyperlipidemia, unspecified hyperlipidemia type- Primary documented in this encounter Care Teams Field Map Editor Relationship Specialty Start Date End Date Dennis Doran MD PCP - General INTERNAL MEDICINE 02/28/17 10/23/23 Joann Marquez ANP- [address] [facility] [address] [place] [address] [place] Professor Of Historical Theology NURSE PRACTITIONER 02/28/17 documented as of this encounter
--- OUTSIDE RECORDS SUMMARY | 2024-10-26 10:05 | XMS_ITS | Encounter Summary ---
Author Organization [facility] Address [address] [place] [address]. [place], [place] [address] [place] [address] Care Team Providers Care Hot Air Furnace Installer And Repairer Name Role Phone Dennis Crump MD Primary Care Provider [phone] Joann Marquez [facility] MD [facility]- Unavailable [phone] Reason for Visit * Reason Comments Follow Up CAD Encounter Details Date Type Department Care Team (Late st Contact Info) Description 04/03/2022 9:00 AM CDT Office Visit [facility] [address] Dieter Arechiga MD [address] [place] [address] Follow Up (CAD) Social History Tobacco [...] 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 vitamin D2, ergocalciferol, [address]26 UNITS capsule, Take 50,000 Units by mouth [...] findings. Diagnoses/Impression: 1. Coronary artery disease involving [place] coronary artery of [place] heart without angina pectoris 2. Primary hypertension [...] tohis next week's lab work for his assistant drafter. We will plan on 1 year followup or earlier if theneed arises. documented in this encounter Plan of Treatment Not on file documented as of this encounter Results * (ABNORMAL) LIPID PANEL (04/26/2022) Pathologist [facility] CHOLESTEROL 280(A) 0 - 200 HDL 36(A) >=40 TRIGLYCERIDES 776(A) 0 - 150 LDL (CALCULATED) Comment:unable to calculate 04/26/2022 Dieter Wade MD LABORATORY Final Result documented in this encounter Visit Diagnoses Diagnosis Coronary artery disease involving [place] coronary artery of [place] heart without angina pectoris- Primary Primary hypertension Unspecified essential hypertension Hyperlipidemia, unspecified hyperlipidemia type documented in this encounter Care Teams Hot Air Furnace Installer And Repairer Relationship Specialty Start Date End Date Dennis Crump MD PCP - General INTERNAL MEDICINE 02/28/17 10/23/23 Joann Marquez ANP- [address] [facility] [address] [place] [address] [place] Warehouse Stocker NURSE PRACTITIONER 02/28/17 documented as of this encounter
--- OUTSIDE RECORDS SUMMARY | 2024-10-26 10:05 | XMS_ITS | Encounter Summary ---
Author Organization [facility] Address [address] [place] [address]. 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
--- OUTSIDE RECORDS SUMMARY | 2024-10-26 10:05 | XMS_ITS | Encounter Summary ---
Author Organization [facility] Address [address] [place] [address]. 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
--- OUTSIDE RECORDS SUMMARY | 2024-10-26 10:05 | XMS_ITS | Encounter Summary ---
Author Organization [facility] Address [facility]6 [facility]. 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
--- OUTSIDE RECORDS SUMMARY | 2024-10-26 10:05 | XMS_ITS | Encounter Summary ---
Author Organization [facility] Address [address] [place] [address]. 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
--- OUTSIDE RECORDS SUMMARY | 2024-10-26 10:05 | XMS_ITS | Encounter Summary ---
Author Organization [facility] Address [address] [place] [address]. [place], [place] [address] [place] [address] Care Team Providers Care Student Life Dean Name Role Phone Dennis Doran MD Primary Care Provider [phone] 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
--- OUTSIDE RECORDS SUMMARY | 2024-10-26 10:05 | XMS_ITS | Encounter Summary ---
Author Organization [facility] Address [address] [place] [address]. 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 No / Unsure 12/19/2021 10:29 AM PRODUCTION TECHNICIAN documented as of this encounter Plan of Treatment Not on file documented as of this encounter Results * PRE-SURGICAL/PRE-PROCEDURE CORONAVIRUS (COVID 19) (01/06/2022 11:51 AM CDT) SPEC DESCRIPTION NASAL 01/07/20 11:48 AM CDT [facility] CORONAVIRUS SARS COV 2 PCR (RESP) NEGATIVE NEGATIVE 01/07/2022 2:32 PM CDT [facility] Comment: THE SARS-CoV-2 TEST HAS BEEN AUTHORIZED BY THE FDA UNDER AN EUA FOR USE BY AUTHORIZED LABORATORIES. PERFORMED BY NUCLEIC ACID AMPLIFICATION PCR FIRST TEST UNKNOWN 01/06/2022 11:48 AM CDT [facility] EMPLOYED IN HEALTHCARE NO 01/06/2022 11:48 AM CDT [facility] SYMPTOMATIC DEFINED BY CDC UNKNOWN 01/06/2022 11:48 AM CDT [facility] HOSPITALIZATION STATUS NO 01/06/2022 11:48 AM CDT [facility] RESIDENT OF [facility] NO 01/06/2022 11:48 AM CDT [facility] NASAL STRUCTURE / Unknown 01/06/2022 11:51 AM CDT Nima Hollis MD MICROBIOLOGY - GENERAL ORDERAB LES Final Result Performing Organization Address [facility] [place] [facility]/State/ZIP Co de Phone Number [address] [address], [facility] [address] [place] [address], documented in this encounter Visit Diagnoses Diagnosis Pre-operative laboratory examination- Primary Pre-procedural laboratory examination documented in this encounter Care Teams Refinisher Relationship Specialty Start Date End Date Dennis Doran MD PCP - General INTERNAL MEDICINE 02/28/17 10/23/23 Joann Marquez ANP- [address] [address] [place] Spinning Machine Operator NURSE PRACTITIONER 02/28/17 documented as of this encounter
--- OUTSIDE RECORDS SUMMARY | 2024-10-26 10:05 | XMS_ITS | Encounter Summary ---
Author Organization [facility] Address [address] [place] [address]. 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
--- OUTSIDE RECORDS SUMMARY | 2024-10-26 10:05 | XMS_ITS | Encounter Summary ---
Author Organization [facility] Address [address] [place] [address]. [place], [place] [address] [place] [address] Care Team Providers Care Staff Weapons Officer Name Role Phone Dennis Doran MD Primary Care Provider [phone] Joann Marquez [facility]-BC Unavailable [phone] Encounter Details Date Type Department Care Team (Latest Contact Info) Description 01/06/2022 11:42 AM CDT - 01/06/2022 11:59 PM CDT Hospital Encounter [facility] [address] [place] [address] Nima Hollis MD [address] [place] [address] Discharge Disposition: Home or Self Care (Routine [...] 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 PERFORMED BY NUCLEIC ACID AMPLIFICATION PCR FIRST TEST UNKNOWN 01/06/2022 11:48 AM CDT [facility] EMPLOYED IN HEALTHCARE NO 01/06/2022 11:48 AM CDT [facility] SYMPTOMATIC DEFINED BY CDC UNKNOWN 01/06/2022 11:48 AM CDT [facility] HOSPITALIZATION STATUS NO 01/06/2022 11:48 AM CDT [facility] RESIDENT OF [facility] NO 01/06/2022 11:48 AM CDT [facility] NASAL STRUCTURE / Unknown 01/06/2022 11:51 AM CDT Nima Hollis MD MICROBIOLOGY - GENERAL ORDERAB LES Final Result [facility] [address] [facility] [address] [place] [address], [facility] [address] [place] [address], * (ABNORMAL) BASIC METABOLIC PANEL (01/06/2022 11:51 AM CDT) GLUCOSE 157(H) 70 - 99 MG/DL 01/06/2022 12:21 PM CDT [facility] BUN 38(H) 7 - 18 MG/DL 01/06/2022 12:21 PM CDT [facility] CREATININE S/P/B 2.29(H) 0.50 - 1.20 MG/DL 01/06/2022 12:21 PM CDT [facility] SODIUM S/P/B 137 136 - 145 MMOL/L 01/06/2022 12:21 PM CDT [facility] POTASSIUM S/P/B 4.6 3.5 - 5.1 MMOL/L 01/06/2022 12:21 PM CDT [facility] CHLORIDE S/P/B 106 100 - 108 MMOL/L 01/06/2022 12:21 PM CDT [facility] CO2 20.8(L) 21.0 - 32.0 MMOL/L 01/06/2022 12:21 PM CDT [facility] CALCIUM S/P/B 8.5 8.5 - 10.1 MG/DL 01/06/2022 12:21 PM CDT [facility] ANION GAP 10.2 5.0 - 15.0 MMOL/L 01/06/2022 12:21 PM CDT [facility] BUN CREATININE RATIO 16.6 6 - 26 01/06/2022 12:21 PM CDT [facility] EGFR NON-AFR. AMER. 33(L) >90 ML/MIN/1.7 3 M2 01/06/2022 12:21 PM T [facility] EGFR AFR. AMER. 38(L) >90 ML/MIN/1.7 3 M2 01/06/2022 12:21 PM CDT [facility] Comment: NOTE: eGFR is not calculated for patients <18 years of age. This is an estimated GFR (CKD EPI) and should not be used for calculating drug doses. 01/06/2022 11:5 1 AM CDT us Nima Hollis MD LABORATORY Final Result [address] [place] [address], [place] * (ABNORMAL) CBC, AUTO, NO DIFF (01/06/2022 11:51 AM CDT) WBC 8.1 4.5 - 11.0 x10'3/uL 01/06/2022 12:25 PM CDT [facility] RBC 4.16(L) 4.5 - 5.9 x10'6/uL 01/06/2022 12:25 PM CDT [facility] HGB 12.6 12.0 - 16.0 G/DL 01/06/2022 12:25 PM CDT [facility] HCT 37.4 37.0 - 49.0 % 01/06/2022 12:25 PM CDT [facility] MCV 89.9 80.0 - 100.0 FL 01/06/2022 12:25 PM CDT [facility] MCH 30.3 26.0 - 34.0 PG 01/06/2022 12:25 PM CDT [facility] MCHC 33.7 31.0 - 37.0 G/DL 01/06/2022 12:25 PM CDT [facility] RDW 13.4 11.6 - 14.8 % 01/06/2022 12:25 PM CDT [facility] PLT 191 140 - 415 x10'3/uL 01/06/2022 12:25 PM CDT [facility] MPV 11.3 7.0 - 12.0 FL 01/06/2022 12:25 PM CDT [facility] 01/06/2022 11:5 1 AM CDT us Nima Hollis MD LABORATORY Final Result [facility] [address] [place] [address] [place] [address], [place] documented in this encounter Visit Diagnoses Diagnosis Abnormal cardiovascular stress test Other nonspecific abnormal cardiovascular system function study Pre-operative laboratory examination Pre-procedural laboratory examination documented in this encounter Additional Health Concerns Infection Onset Date Last Indicated Resolved Time COVID-19 Rule Out 01/06/2022 01/06/2022 01/07/2022 2:32 PM CDT documented as of this encounter Care Teams Staff Weapons Officer Relationship Specialty Start Date End Date Dennis Doran MD PCP - General INTERNAL MEDICINE 02/28/17 10/23/23 Joann Marquez, ANP- [address] [facility] [address] [place] [address] [place] Steam Clothes Press Operator NURSE PRACTITIONER 02/28/17 documented as of this encounter
--- OUTSIDE RECORDS SUMMARY | 2024-10-26 10:05 | XMS_ITS | Encounter Summary ---
Author Organization [facility] Address [facility] [place] [address] [place] [address] Care Team Providers Care Bright Cutter Name Role Phone Dennis Doran MD Primary Care Provider [phone] Joann Marquez-ERICA Unavailable Reason for Visit * Reason Onset Date Comments Appointment Reminder 04/06/2023 Encounter Details Date Type Department Care Team ([facility] st Contact Info) Description 04/06/2023 Telephone [place] [facility] [address] [place] [address] Joann Marquez ANP-BC [address] 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 No answer, left a voicemail. documented in this encounter Plan of Treatment Not on file documented as of this encounter Visit Diagnoses Not on filedocumented in this encounter Care Teams Bright Cutter Relationship Specialty Start Date End Date Dennis Doran MD PCP - General INTERNAL MEDICINE 02/28/17 10/23/23 Joann Marquez, ANP- [address] [address] [place] Wrister NURSE PRACTITIONER 02/28/17 documented as of this encounter
--- OUTSIDE RECORDS SUMMARY | 2024-10-26 10:06 | XMS_ITS | Encounter Summary ---
Author Organization [facility] Address [address] [place] [address]. [place], [place] [address] [place] [address] Care Team Providers Care Navy Airspace Officer Name Role Phone Dennis Doran MD Primary Care Provider [phone] Joann Marquez [facility]- Unavailable [phone] Reason for Visit * Reason Onset Date Comments Schedule Procedure 12/20/2021 Encounter Details Date Type Department Care Team (Late st Contact Info) Description 12/20/2021 Telephone [facility] ld [address] [place] [address] Dieter Arechiga MD [address] [address] Schedule Procedure Social History Tobacco [...] 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 Labs and COVID test to be done01/06 at [facility] in [place]. Instruction letter mailed. DEVELOPER * Kelsey Marsh LPN - 12/20/2021 11:[address] Arechiga saw pt today after abnormal nuclear and starting Imdur. Pt continues with chest pain and Dr Arechiga recommends cath. History of CAD, stent, diabetic. DEVELOPER documented in this encounter Plan of Treatment Not on file documented as of this encounter Visit Diagnoses Not on filedocumented in this encounter Additional Health Concerns Infection Onset Date Last Indicated Resolved Time COVID-19 Rule Out 01/06/2022 01/06/2022 01/07/2022 2:32 PM CDT documented as of this encounter Care Teams Navy Airspace Officer Relationship Specialty Start Date End Date Dennis Doran MD PCP - General INTERNAL MEDICINE 02/28/17 10/23/23 Joann Marquez ANP- [address] [facility] 4P[phone] [place] Wallboard Worker NURSE PRACTITIONER 02/28/17 documented as of this encounter
--- OUTSIDE RECORDS SUMMARY | 2024-10-26 10:06 | XMS_ITS | Encounter Summary ---
Author Organization [facility] Address [address] [place] [address]. 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 Yes 11/07/2021 3:01 PM TRANSIT VEHICLE INSPECTOR documented as of this encounter Progress Notes * Adilson Lund RN - 11/10/2021 12:50 PM CST Called pt, scheduled nuclear stress test for 11/30/21 at 1200, PHI. Instruction letter mailed. Pt to hold carvedilol the night before and morning of test. He agrees with time and date of test, V/U of all instructions Letter mailed Remind Me set SIT VEHICLE INSPECTOR documented in this encounter Plan of Treatment Not on file documented as of this encounter Visit Diagnoses Not on filedocumented in this encounter Care Teams Produce Associate Relationship Specialty Start Date End Date Dennis Doran MD PCP - General INTERNAL MEDICINE 02/28/17 10/23/23 Joann Marquez ANP- [address] [facility] [address] [place] [address] [place] Poultry And Fish Butcher NURSE PRACTITIONER 02/28/17 documented as of this encounter
--- OUTSIDE RECORDS SUMMARY | 2024-10-26 10:06 | XMS_ITS | Encounter Summary ---
Author Organization [facility] Address [address] [place] [address]. 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 No / Unsure 12/02/2021 9:21 AM MARKET RESEARCH SENIOR PROJECT MANAGER documented as of this encounter Plan of Treatment Not on file documented as of this encounter Visit Diagnoses Not on filedocumented in this encounter Care Teams Grocery Cashier Relationship Specialty Start Date End Date Dennis Doran MD PCP - General INTERNAL MEDICINE 02/28/17 10/23/23 Joann Marquez ANP-BC [address] [facility] [address] [place] [address] [place] Parts Manager NURSE PRACTITIONER 02/28/17 documented as of this encounter
--- OUTSIDE RECORDS SUMMARY | 2024-10-26 10:06 | XMS_ITS | Encounter Summary ---
Author Organization [facility] Address [address] [place] [address]. 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 No / Unsure 11/30/2021 11:51 AM AUTOMATIC SPOOLER OPERATOR documented as of this encounter Plan of Treatment Not on file documented as of this encounter Visit Diagnoses Not on filedocumented in this encounter Care Teams Utilization Reviewer Relationship Specialty Start Date End Date Dennis Doran MD PCP - General INTERNAL MEDICINE 02/28/17 10/23/23 Joann Marquez ANP-BC [address] [facility] [address] [place] [phone] [place] Burr Bench Operator NURSE PRACTITIONER 02/28/17 documented as of this encounter
--- OUTSIDE RECORDS SUMMARY | 2024-10-26 10:06 | XMS_ITS | Encounter Summary ---
Author Organization [facility] Address [facility] [place] [address] [place] [address] Care Team Providers Care Quality Process Auditor Name Role Phone Dennis Doran MD Primary Care Provider [phone] Joann Marquez Unavailable [phone] Reason for Visit * Reason Onset Date Comments Problem 10/27/2021 Encounter Details Date Type Department Care Team (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 EKG shows sinus rhythm with septal GA and poor r wave progression. This appears [...] if partner can work in sooner in [place]. He declined offer to move up appt. [...] feels better. He voiced understanding of recommendations. ET INVESTIGATOR ET INVESTIGATOR * Adilson Lund RN - 10/27/2021 11:13 AM CST Received records from PCP. They are being scanned in. Pt saw PCP in September ET INVESTIGATOR ET INVESTIGATOR * Adilson Lund RN - 10/27/2021 9:28 [...] drive him and it is 1.5hours from Take the Interview. Advised I will watch for cancellations upcoming for him to get in sooner. Instructed him to go to ER if 3 nitro do not relieve the chest pain ET INVESTIGATOR ET INVESTIGATOR documented in this encounter Plan of Treatment Not on file documented as of this encounter Visit Diagnoses Not on filedocumented in this encounter Care Teams Quality Process Auditor Relationship Specialty Start Date End Date Dennis Doran MD PCP - General INTERNAL MEDICINE 02/28/17 10/23/23 Joann Marquez, ANP- [address] [facility] [address] [place] [address] [place] Rivet Tosser NURSE PRACTITIONER 02/28/17 documented as of this encounter
--- OUTSIDE RECORDS SUMMARY | 2024-10-26 10:06 | XMS_ITS | Encounter Summary ---
Author Organization [facility] Address [address] [place] [address]. 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 Yes 11/07/2021 3:01 PM EPIC ANESTHESIA ANALYST documented as of this encounter Plan of Treatment Not on file documented as of this encounter Procedures Procedure Name Priority Date/Time Associated Diagnosis Comments D-DIMER, QUANTITATIVE Routine 10/17/2021 TROPONIN WHOLE BLOOD Routine 09/20/2021 COMPREHENSIVE METABOLIC PANEL Routine 09/20/2021 CBC W/DIFF AUTOMATED Routine 09/20/2021 documented in this encounter Results * D-DIMER, QUANTITATIVE (10/17/2021) Pathologist [facility] D-DIMER 0.47 10/17/2021 us Doc [facility] Abstract LABORATORY Final Result * TROPONIN WHOLE BLOOD (09/20/2021) [facility] TROPONIN T 8 <23 09/20/2021 us Doc [facility] Abstract LABORATORY Final Result * CBC W/DIFF AUTOMATED (09/20/2021) [facility] WBC 7.8 RBC 4.45 HGB 13.4 HCT 40.4 MCV 90.8 MCH 30.1 MCHC 33.2 RDW 13.8 PLT 214 NEUTROPHILS % 70.6 LYMPHOCYTES % 17.1 MONOCYTES % 5.6 EOSINOPHILS % 5.4 BASOPHILS % 1.3 ABS. NEUTROPHILS 5,507 ABS. LYMPHOCYTES 1,334 ABS. MONOCYTES 437 ABS. BASOPHILS 101 09/20/2021 us Doc [facility] Abstract LABORATORY Final Result * (ABNORMAL) COMPREHENSIVE METABOLIC PANEL (09/20/2021) Pathologist [facility] SODIUM S/P/B 138 POTASSIUM S/P/B 4.2 CO2 [...] documented as of this encounter Care Teams Dialysis Rn Relationship Specialty Start Date End Date Dennis Doran MD PCP - General INTERNAL MEDICINE 02/28/17 10/23/23 Denisha Hansen PA [address] [place] [address] PCP - General PHYSICIAN MANAGER BUSINESS SYSTEMS 10/24/23 Joann Marquez, ANP-BC [address] [facility] [address] [place] [address] [place] High Pressure Cleaner NURSE PRACTITIONER 02/28/17 documented as of this encounter
--- OUTSIDE RECORDS SUMMARY | 2024-10-26 10:06 | XMS_ITS | Encounter Summary ---
Author Organization [facility] Address [address] [place] [address]. [place], [place] [address] [place] [address] Care Team Providers Care Social Media Community Manager Name Role Phone Dennis Crump MD Primary Care Provider [phone] Joann Marquez [facility]- Unavailable [phone] Reason for Visit * Reason Comments Follow Up CAD Encounter Details Date Type Department Care Team (Late st Contact Info) Description 12/20/2021 10:30 AM REGIONAL TRANSPORTATION MANAGER Office Visit [facility] [address] [place] [address] Dieter Arechiga MD [address] [place] [phone] Follow Up (CAD) Social History Tobacco [...] 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 No / Unsure 12/19/2021 10:29 AM REGIONAL TRANSPORTATION MANAGER documented as of this encounter Last Filed Vital Signs Vital Sign Reading Time Taken Comments Blood Pressure 110/60 12/20/2021 10:28 AM REGIONAL TRANSPORTATION MANAGER Pulse 70 12/20/2021 10:28 AM REGIONAL TRANSPORTATION MANAGER Temperature - - Respiratory Rate 16 12/20/2021 10:28 AM REGIONAL TRANSPORTATION MANAGER Oxygen Saturation - - Inhaled Oxygen Concentration - - Weight 89.6 kg (197 lb 9.6 oz) 12/20/2021 10:28 AM REGIONAL TRANSPORTATION MANAGER Height 180.3 cm (5' 11 ) 12/20/2021 10:28 AM REGIONAL TRANSPORTATION MANAGER Body Mass Index 27.56 12/20/2021 10:28 AM REGIONAL TRANSPORTATION MANAGER documented in this encounter Progress Notes * [...] Mr. Kowalski including the risks of mortality, VT, CVA, bleeding, infection, vascular comp lications and [...] Disp: , Rfl: ??? vitamin D2, ergocalciferol, 62270 UNITS capsule, Take 50,000 Units by mouth [...] Comments: Diagnoses/Impression: 1. Coronary artery disease involving [place] coronary artery of [place] heart without angina pectoris 2. Primary hypertension 3. Hyperlipidemia, unspecified hyperlipidemia type 4. Tobacco use Referring Provider: Dennis Crump MD PCP: DENNIS CRUMP MD ONAL TRANSPORTATION MANAGER documented in this encounter Plan of Treatment Not on file documented as of this encounter Visit Diagnoses Diagnosis Coronary artery disease involving [place] coronary artery of [place] heart without angina pectoris- Primary Primary hypertension Unspecified essential hypertension Hyperlipidemia, unspecified hyperlipidemia type Tobacco use Tobacco use disorder documented in this encounter Care Teams Social Media Community Manager Relationship Specialty Start Date End Date Dennis Crump MD PCP - General INTERNAL MEDICINE 02/28/17 10/23/23 Joann Marquez ANP- [address] [facility] [address] [place] [address] [place] Color Maker Dyer NURSE PRACTITIONER 02/28/17 documented as of this encounter
--- OUTSIDE RECORDS SUMMARY | 2024-10-26 10:06 | XMS_ITS | Encounter Summary ---
Author Organization [facility] Address [facility] [facility] [place] [address] [place] [address] Care Team Providers Care Hydraulic Dredge Operator Name Role Phone Dennis Doran MD Primary Care Provider [phone] Joann Marquez Unavailable [phone] Reason for Visit * Reason Onset Date Comments Refill Request 11/02/2021 Encounter Details Date Type Department Care Team ([facility] st Contact Info) Description 11/02/2021 Telephone [facility] [address] [place] [address] Joann Marquez ANP-ERICA [address] [facility] [address] [place] [address] Refill Request Social History Tobacco [...] 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 No / Unsure 10/28/2021 11:15 AM DIAL BUFFER documented as of this encounter Progress Notes * Brooke Reyna RN - 11/02/2021 1:34 PM CST Patient called requesting a refill on his nitro. He states he forgot to ask Marlys to refill when he was on the phone with office. Will e-scribe 1 bottle with 1 refill BUFFER documented in this encounter Plan of Treatment Not on file documented as of this encounter Visit Diagnoses Not on filedocumented in this encounter Care Teams Hydraulic Dredge Operator Relationship Specialty Start Date End Date Dennis Doran MD PCP - General INTERNAL MEDICINE 02/28/17 10/23/23 Joann Marquez ANP- [address] [facility] [address] [place] [address] [place] Brass Pourer NURSE PRACTITIONER 02/28/17 documented as of this encounter
--- OUTSIDE RECORDS SUMMARY | 2024-10-26 10:06 | XMS_ITS | Encounter Summary ---
Author Organization [facility] Address [facility]. 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
--- OUTSIDE RECORDS SUMMARY | 2024-10-26 10:06 | XMS_ITS | Encounter Summary ---
Author Organization [facility] Address [address] [place] [address]. 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 Yes 11/07/2021 3:01 PM TECHNICAL SALES SUPPORT SPECIALIST documented as of this encounter Plan of Treatment Not on file documented as of this encounter Visit Diagnoses Not on filedocumented in this encounter Care Teams Marketing Traffic Coordinator Relationship Specialty Start Date End Date Dennis Doran MD PCP - General INTERNAL MEDICINE 02/28/17 10/23/23 Joann Marquez ANP-BC [address] [facility] [address] [place] [address] [place] Kosher Dietary Service Manager NURSE PRACTITIONER 02/28/17 documented as of this encounter
--- OUTSIDE RECORDS SUMMARY | 2024-10-26 10:06 | XMS_ITS | Encounter Summary ---
Author Organization [facility] Address [address] [place] [address]. [place], [place] [address] [place] [address] Care Team Providers Care Java Developer Consultant Name Role Phone Dennis Doran MD Primary Care Provider [phone] Joann Marquez [facility]- Unavailable [phone] Reason for Referral * Imaging (Emergency) - Closed Specialty Diagnoses / Procedures Referred By Cheyanne puentes Referred To Contact RADIOLOGY Procedures CT HEAD WO CON Orquidea Ospina MD [address] [place] [address] Phone: tel: fax: Referral ID Status Reason Start Date Expiration Date Visits Re quested Visits Authorized [id number] Closed 10/28/2021 11/28/2022 1 1 NAUTICAL ENGINEERING OFFICER Reason for Visit * Reason Comments Dizziness Encounter Details Date Type Department Care Team (Late st Contact Info) Description 10/28/2021 10:57 AM AERONAUTICAL ENGINEERING OFFICER - 10/28/2021 2:20 PM AERONAUTICAL ENGINEERING OFFICER Emergency [facility] Emergency Room [address] [place] [address] Orquidea Ospina MD 1 [place] [address] Dizziness Discharge Disposition: Home or [...] 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 No / Unsure 10/28/2021 11:15 AM AERONAUTICAL ENGINEERING OFFICER documented as of this encounter Last Filed Vital Signs Vital Sign Reading Time Taken Comments Blood Pressure 175/80 10/28/2021 2:20 PM AERONAUTICAL ENGINEERING OFFICER Pulse 75 10/28/2021 1:50 PM AERONAUTICAL ENGINEERING OFFICER Temperature 37.3 ??C (99.1 ??F) 10/28/2021 11:[address] Respiratory Rate 16 10/28/2021 11:10 AM AERONAUTICAL ENGINEERING OFFICER Oxygen Saturation 95% 10/28/2021 1:50 PM AERONAUTICAL ENGINEERING OFFICER Inhaled Oxygen Concentration - - Weight 88.5 kg (195 lb) 10/28/2021 11:10 AM AERONAUTICAL ENGINEERING OFFICER Height 180.3 cm (5' 11 ) 10/28/2021 11:10 AM AERONAUTICAL ENGINEERING OFFICER Body Mass Index 27.2 10/28/2021 11:10 AM AERONAUTICAL ENGINEERING OFFICER documented in this encounter Discharge Instructions * Discharge Instructions* Orquidea Ospina MD - 10/28/2021 1:41 PM AERONAUTICAL ENGINEERING OFFICER May use zyrtc over the counter for congestion , return if worse NAUTICAL ENGINEERING OFFICER * Attachments The following attachments cannot be sent through Care Everywhere. * Dizziness, Adult ED (South African) * Labyrinthitis ([place] African) documented in this encounter Medications at Time [...] 02/23/2014 12/21/19 2 2 vitamin D2, ergocalciferol, 33284 UNITS capsule Take 50,000 Units by mouth once a week. 10/28/2021 4 documented as of this encounter ED Notes * Annel Botello RN - 10/28/2021 2:19 PM CST Feeling better, denies dizziness at this time NAUTICAL ENGINEERING OFFICER * Annel Botello RN - 10/28/2021 1:09 PM CST States doing ok laying on L side. Voices no c/o NAUTICAL ENGINEERING OFFICER * Annel Botello RN - 10/28/2021 10:59 AM CSTSummary: vertigo/ chest pain. States started getting sick on Sunday with body aches. Went to dr and yang test neg. Cont to takeNTG for chest pain and come to ER as needed. Took NTG yesterday. Today rolled over in bed and states spinning and double vision. Able to walk. No vomiting. No weakness NAUTICAL ENGINEERING OFFICER * Orquidea Ospina MD - 10/28/2021 10:55 [...] ??? Colitis ??? CVA (cerebral vascular accident) ([facility]) 2009 ??? Diabetes ([facility]) ??? Diabetic retinopathy ([facility]) ??? GERD (gastroesophageal reflux disease) ??? 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..] HEAD WO CON Final Result by User, [id number] (10/28 2942) IMAGING STUDIES: CT HEAD WO CON DATE: [...] Ordered By: ORQUIDEA OSPINA Interpreted By: Aguilar Luthre, 10/28/2021 12:34 PM XR CHEST PORTABLE Final Result by User, [id number] (10/28 5055) IMAGING STUDIES: XR CHEST PORTABLE DATE: 10/28/2021 [...] Disposition: Discharge Orquidea Ospina MD 10/28/21 1342 NAUTICAL ENGINEERING OFFICER documented in this encounter Plan of Treatment Not on file documented as of this encounter Procedures Procedure Name Priority Date/Time Associated Diagnosis Comments ECG 12-LEAD STAT 10/28/2021 1:15 PM AERONAUTICAL ENGINEERING OFFICER CT HEAD WO CON STAT 10/28/2021 12:24 PM AERONAUTICAL ENGINEERING OFFICER XR CHEST PORTABLE STAT 10/28/2021 11: 10 AM AERONAUTICAL ENGINEERING OFFICER COMPREHENSIVE METABOLIC PANEL STAT 10/28/2021 11:05 AM AERONAUTICAL ENGINEERING OFFICER CBC W/DIFF AUTOMATED STAT 10/28/2021 11:05 AM AERONAUTICAL ENGINEERING OFFICER TROPONIN, QUANT STAT 10/28/2021 11:05 AM AERONAUTICAL ENGINEERING OFFICER ECG 12-LEAD STAT 10/28/2021 11:04 AM AERONAUTICAL ENGINEERING OFFICER documented in this encounter Results * ECG 12 lead (10/28/2021 1:15 PM AERONAUTICAL ENGINEERING OFFICER) 10/28/2021 1:15 PM AERONAUTICAL ENGINEERING OFFICER Narrative [facility] RAD - 10/29/2021 7:44 AM AERONAUTICAL ENGINEERING OFFICER ?[facility] ? Test Date: ?2021-10-28 Pat Name: ? RUBIA KOWALSKI ?Department: ? Room: ? Gender: ? Male ? 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: ?? : ?1975 ? Requested By: ORQUIDEA PIÑAI Order Number: [id number] ? Reading MD: ?? Delano Wray ? Measurements Intervals ?Dent ? Rate: ? 62 ? P: ?24 CO: ? 133 ?QRS: ?-6 QRSD: ? 90 ? T: ?31 QT: ? 421 ? QTc: ?431 ? Interpretive Statements SINUS RHYTHM Compared to ECG 10/28/2021 11:04:55 No significant changes Poor R Wave Progression clinical correlation recommended. 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 NAUTICAL ENGINEERING OFFICER us Orquidea Ospina MD ECG ORDERABLES Final Result [facility] RAD * CT HEAD WO CON (10/28/2021 12:24 PM AERONAUTICAL ENGINEERING OFFICER) Anatomical Region Laterality Modality Head Computed Tomogra phy 10/28/2021 12:3 4 PM AERONAUTICAL ENGINEERING OFFICER Impressions 10/28/2021 12:39 PM AERONAUTICAL ENGINEERING OFFICER IMPRESSION: 1. ??Routine noncontrast head CT. Comparison [...] 10/28/2021 12:34 PM Narrative 10/28/2021 12:39 PM AERONAUTICAL ENGINEERING OFFICER IMAGING STUDIES: CT HEAD WO CON ??DATE: [...] * XR CHEST PORTABLE (10/28/2021 11:10 AM AERONAUTICAL ENGINEERING OFFICER) Anatomical Region Laterality Modality Chest Radiographic Madelin ging 10/28/2021 11:1 1 AM AERONAUTICAL ENGINEERING OFFICER Impressions 10/28/2021 11:12 AM AERONAUTICAL ENGINEERING OFFICER IMPRESSION: 1. ??No evidence of acute cardiopulmonary disease. 2. ??No evidence of pleural effusion or pneumothorax. No CHF. 3. ??Normal heart size. Osseous structures intact. Ordered By: ORQUIDEA OSPINA Interpreted By: Aguilar Luther, 10/28/2021 11:11 AM Narrative 10/28/2021 11:12 AM AERONAUTICAL ENGINEERING OFFICER IMAGING STUDIES: XR CHEST PORTABLE ? DATE: [...] Result * TROPONIN, QUANT (10/28/2021 11:05 AM AERONAUTICAL ENGINEERING OFFICER) TROPONIN I HIGH SENSITIVITY 15 <76 ng/L 10/28/2021 11:54 AM AERONAUTICAL ENGINEERING OFFICER [facility] Comment: HIGH DOSES OF BIOTIN, TROPONIN-SPECIFIC AUTOANTIBODIES, AND ANTIBODY THERAPY CONTAINING HAMA MAY INTERFERE WITH THIS TEST RESULT. CORRELATION TO CLINICAL HISTORY AND PRESENTATION RECOMMENDED. 10/28/2021 11:0 5 AM AERONAUTICAL ENGINEERING OFFICER us Orquidea Ospina MD LABORATORY Final Result [facility] [address] [place] [address], [place] [phone] * (ABNORMAL) COMPREHENSIVE METABOLIC PANEL (10/28/2021 11:05 AM [facility]) [facility] GLUCOSE 243(H) 70 - 99 MG/DL 10/28/2021 11:50 AM [facility] BUN 22(H) 7 - 18 MG/DL 10/28/2021 11:50 AM [facility] CREATININE S/P/B 2.29(H) 0.7 - 1.3 MG/DL 10/28/2021 11:50 AM [facility] SODIUM S/P/B 140 136 - 145 MMOL/L 10/28/2021 11:50 AM [facility] POTASSIUM S/P/B 4.2 3.5 - 5.1 MMOL/L 10/28/2021 11:50 AM [facility] CHLORIDE S/P/B 105 100 - 108 MMOL/L 10/28/2021 11:50 AM [facility] CO2 22.9 21 - 32 MMOL/L 10/28/2021 11:50 AM [facility] CALCIUM S/P/B 8.1(L) 8.5 - 10.1 MG/DL 10/28/2021 11:50 AM [facility] BILIRUBIN TOTAL S/P/B 0.2 0.2 - 1.2 MG/DL 10/28/2021 11:50 AM [facility] TOTAL PROTEIN S/P/B 6.0(L) 6.4 - 8.2 G/DL 10/28/2021 11:50 AM [facility] ALBUMIN S/P/B 2.8(L) 3.4 - 5.0 G/DL 10/28/2021 11:50 AM [facility] AST 29 15 - 37 U/L 10/28/2021 11:50 AM [facility] ALT 28 16 - 60 U/L 10/28/2021 11:50 AM [facility] ALKALINE PHOSPHATASE S/P/B 86 50 - 136 U/L 10/28/2021 11:50 AM [facility] ANION GAP 12.1 5 - 15 MMOL/L 10/28/2021 11:50 AM [facility] BUN CREATININE RATIO 9.6 6 - 26 10/28/2021 11:50 AM [facility] A/G RATIO 0.9(L) 1.0 - 2.0 RATIO 10/28/2021 11:50 AM [facility] EGFR NON-AFR. AMER. 33(L) >90 ML/MIN/1.7 3 M2 10/28/2021 11:50 AM [facility] EGFR AFR. AMER. 38(L) >90 ML/MIN/1.7 3 M2 10/28/2021 11:50 AM [facility] Comment: NOTE: eGFR is not calculated for patients <18 years of age. This is an estimated GFR (CKD EPI) and should not be used for calculating drug doses. 10/28/2021 11:0 5 AM [facility] Orquidea Ospina MD LABORATORY Final Result [facility] [address] [place] [address], * (ABNORMAL) CBC W/DIFF AUTOMATED (10/28/2021 11:05 AM [facility]) WBC 4.8 4.4 - 11.0 x10'3/uL 10/28/2021 11:44 AM [facility] RBC 4.70 4.50 - 5.90 x10'6/uL 10/28/2021 11:44 AM [facility] HGB 14.1 14.0 - 17.5 G/DL 10/28/2021 11:44 AM [facility] HCT 42.9 41.5 - 50.4 % 10/28/2021 11:44 AM [facility] MCV 91.3 80.0 - 96.0 FL 10/28/2021 11:44 AM [facility] MCH 30.0 26.5 - 31.4 PG 10/28/2021 11:44 AM [facility] MCHC 32.9 31.9 - 34.8 G/DL 10/28/2021 11:44 AM [facility] RDW 13.1 12.3 - 14.3 % 10/28/2021 11:44 AM [facility] PLT 169 151 - 353 x10'3/uL 10/28/2021 11:44 AM [facility] MPV 11.3 9.7 - 11.9 FL 10/28/2021 11:44 AM [facility] RBC MORPHOLOGY NORMAL 10/28/2021 11:44 AM [facility] PLT MORPH. NORMAL 10/28/2021 11:44 AM [facility] WBC MORPHOLOGY NORMAL 10/28/2021 11:44 AM [facility] LYMPHOCYTES % 14.3(L) 15.8 - 45.0 % 10/28/2021 11:44 AM [facility] NEUTROPHILS % 74.2(H) 42.1 - 71.9 % 10/28/2021 11:44 AM [facility] MONOCYTES % 6.7 5.7 - 12.5 % 10/28/2021 11:44 AM AERONAUTICAL ENGINEERING OFFICER [facility] EOSINOPHILS 3.6 0.0 - 5.6 % 10/28/2021 11:44 AM AERONAUTICAL ENGINEERING OFFICER [facility] BASOPHILS 1.0 0.0 - 1.3 % 10/28/2021 11:44 AM AERONAUTICAL ENGINEERING OFFICER [facility] ABS. NEUTROPHILS 3.54 1.40 - 6.00 x10'3/uL 10/28/2021 11:44 AM AERONAUTICAL ENGINEERING OFFICER [facility] IMMATURE GRANS % 0.2 0.0 - 0.5 % 10/28/2021 11:44 AM [facility] ABS. LYMPHOCYTES 0.68(L) 0.80 - 4.70 x10'3/uL 10/28/2021 11:44 AM AERONAUTICAL ENGINEERING OFFICER [facility] 10/28/2021 11:0 5 AM AERONAUTICAL ENGINEERING OFFICER Orquidea Ospina MD LABORATORY Final Result Performing Organization Address [facility] Co de Phone Number [facility] [address] [place] [address], * ECG 12 lead (10/28/2021 11:04 AM AERONAUTICAL ENGINEERING OFFICER) 10/28/2021 11:0 4 AM AERONAUTICAL ENGINEERING OFFICER Narrative [facility] - 10/29/2021 7:41 AM AERONAUTICAL ENGINEERING OFFICER ?[facility] ? Test Date: ?2021-10-28 Pat Name: ? RUBIA KOWALSKI ?Department: ? Room: ? Gender: ? Male ? 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: ?? : ?1975 ? Requested By: CHILEL MELVA Order Number: [id number] ? Reading MD: ?? Delano Wray ? Measurements Intervals ?Dent ? Rate: ? 74 ? P: ?19 CO: ? 120 ?QRS: ?19 QRSD: ? 85 ? T: ?52 QT: ? 393 ? QTc: ?436 ? Interpretive Statements SINUS RHYTHM Compared to ECG 01/21/2021 13:11:23 old Myocardial infarct in anteroseptal ??area still a possibility clinical correlation recommended. NAUTICAL ENGINEERING OFFICER Procedure Note Delano Wray MD - 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 NAUTICAL ENGINEERING OFFICER us Orquidea Ospina MD ECG ORDERABLES Final Result [facility] documented in this encounter Visit Diagnoses Diagnosis Vertigo- Primary Dizziness and giddiness Chest wall pain Painful respiration documented in this encounter Administered Medications Inactive Administered Medications - up to 3 most recent administrations Medication Order MAR Action Action Date Dose Rate Site aspirin chewable tablet 324 mg 324 mg, Oral, Once, 1 dose, On Sun10/28/21 at 1100 Given 10/28/2021 11:46 AM AERONAUTICAL ENGINEERING OFFICER 324 mg meclizine (ANTIVERT) tablet 50 mg 50 mg, Oral, Once, 1 dose, On Sun10/28/21 at 1115 Given 10/28/2021 11:47 AM AERONAUTICAL ENGINEERING OFFICER 50 mg sodium chloride 0.9% bolus infusion SOLN 1,000 mL 1,000 mL, Intravenous, Administer over 15 Minutes, Once, 1 dose, On Sun10/28/21 at 1245 New Bag 10/28/2021 1:09 PM AERONAUTICAL ENGINEERING OFFICER 1,000 mLs documented in this encounter Active and Recently Administered Medications Times are shown in AERONAUTICAL ENGINEERING OFFICER. Scheduled Medication Order 10/26/2021 10/27/2021 10/28/2021 aspirin [...] RN) documented in this encounter Care Teams Java Developer Consultant Relationship Specialty Start Date End Date Dennis Doran MD PCP - General INTERNAL MEDICINE 02/28/17 10/23/23 Joann Marquez ANP- [address] [facility] [address] [place] [address] [place] Physical Design Engineer NURSE PRACTITIONER 02/28/17 documented as of this encounter
--- OUTSIDE RECORDS SUMMARY | 2024-10-26 10:06 | XMS_ITS | Encounter Summary ---
Author Organization [facility] Address [facility]. [place], [place] [address] [place] [address] Care Team Providers Care Commercial Photographer Name Role Phone Dennis Doran MD Primary Care Provider [phone] Joann Marquez 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 documented in this encounter Visit Diagnoses Not on filedocumented in this encounter Care Teams Commercial Photographer Relationship Specialty Start Date End Date Dennis Doran MD PCP - General INTERNAL MEDICINE 02/28/17 10/23/23 Joann Marquez ANP- [address] [facility] [address] [place] [address] [place] Shop Girl NURSE PRACTITIONER 02/28/17 documented as of this encounter
--- OUTSIDE RECORDS SUMMARY | 2024-10-26 10:06 | XMS_ITS | Encounter Summary ---
Author Organization [facility] Address [address] [place] [address]. 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
--- OUTSIDE RECORDS SUMMARY | 2024-10-26 10:06 | XMS_ITS | Encounter Summary ---
Author Organization [facility] Address [address] [place] [address]. 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 No / Unsure 10/28/2021 11:15 AM EXPLOSIVES MIXER OPERATOR documented as of this encounter Plan of Treatment Not on file documented as of this encounter Visit Diagnoses Not on filedocumented in this encounter Care Teams Machine Joint Cutter Relationship Specialty Start Date End Date Dennis Doran MD PCP - General INTERNAL MEDICINE 02/28/17 10/23/23 Joann Marquez ANP-BC [address] [facility] [address] [place] [phone] [place] Tannery Supervisor Poultry Farm NURSE PRACTITIONER 02/28/17 documented as of this encounter
--- OUTSIDE RECORDS SUMMARY | 2024-10-26 10:06 | XMS_ITS | Encounter Summary ---
Author Organization [facility] Address [address] [place] [address]. 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 No / Unsure 12/02/2021 9:21 AM INSPECTOR FIREARMS documented as of this encounter Progress Notes * Dieter Wade MD - 12/04/2021 3:00 PM CST Agree ECTOR FIREARMS * MARIO Mendenhall - 12/02/2021 4:55 PM [...] Patient voices understanding. Results routed to PCP. ECTOR FIREARMS ECTOR FIREARMS * MARIO Mendenhall - 12/02/2021 3:42 PM CST Please advise. ECTOR FIREARMS * Collette Giles RN - 12/02/2021 3:31 PM CST Please review stress test. ECTOR FIREARMS documented in this encounter Plan of Treatment Not on file documented as of this encounter Visit Diagnoses Not on filedocumented in this encounter Care Teams Window Display Designer Relationship Specialty Start Date End Date Dennis Doran MD PCP - General INTERNAL MEDICINE 02/28/17 10/23/23 Joann Marquez, BANNER- [address] [facility] [address] [place] [address] [place] Pretzel Cooker NURSE PRACTITIONER 02/28/17 documented as of this encounter
--- OUTSIDE RECORDS SUMMARY | 2024-10-26 10:06 | XMS_ITS | Encounter Summary ---
Author Organization [facility] Address [address] [place] [address]. 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 No / Unsure 12/02/2021 9:21 AM LAP POLISHER documented as of this encounter Plan of Treatment Not on file documented as of this encounter Visit Diagnoses Not on filedocumented in this encounter Care Teams Glazier Metal Furniture Relationship Specialty Start Date End Date Dennis Doran MD PCP - General INTERNAL MEDICINE 02/28/17 10/23/23 Joann Marquez, [facility] [address] [facility] [address] [place] [phone] [place] Coloring Room Worker NURSE PRACTITIONER 02/28/17 documented as of this encounter
--- OUTSIDE RECORDS SUMMARY | 2024-10-26 10:06 | XMS_ITS | Encounter Summary ---
Author Organization [facility] Address [address] [place] [address]. [place], [place] [address] [place] [address] Care Team Providers Care Loan Coordinator Name Role Phone Dennis Doran MD Primary Care Provider [phone] Joann Marquez Unavailable [phone] Reason for Referral * Procedure (Routine) - Closed Specialty Diagnoses / Procedures Referred By Contnikkie t Referred To Contact Diagnoses Persistent atrial fibrillation ([facility]) CAD (coronary artery disease) Procedures Cardiology Stress Test Only, Exercise [facility] [address] [place] [address] Phone: tel: Referral ID Status Reason Start Date Expiration Date Visits Re quested Visits Authorized [id number] Closed 12/02/2021 12/30/2022 1 1 MOBILE BODY REPAIR SUPERVISOR Reason for Visit * Imaging (Routine) - Closed Specialty Diagnoses / Procedures Referred By Contnikkie puentes Referred To Contact RADIOLOGY Diagnoses Coronary artery disease of [place] artery of [place] heart with stable angina pectoris ([facility]) Procedures NM PHARM NUC STRESS TEST 2DAY NM EXER NUC STRESS TEST 1DAY Joann Marquez ANP-BC [address] [facility] [address] [place] [address] Phone: tel: fax: Referral ID Status Reason Start Date Expiration Date Visits Re quested Visits Authorized [id number] Closed 11/08/2021 12/09/2022 1 2 Encounter Details Date Type Department Care Team (Latest Contact Info) Description 12/02/2021 9:23 AM AUTOMOBILE BODY REPAIR SUPERVISOR - 12/02/2021 11:59 PM AUTOMOBILE BODY REPAIR SUPERVISOR Hospital Encounter 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 No / Unsure 12/02/2021 9:21 AM AUTOMOBILE BODY REPAIR SUPERVISOR documented as of this encounter Medications at [...] Active 02/23/2014 12/21/19 22 vitamin D2, ergocalciferol, 15838 UNITS capsule Take 50,000 Units by mouth once a week. 10/28/2021 06/11/20 24 documented as of this encounter Plan of Treatment Not on file documented as of this encounter Procedures Procedure Name Priority Date/Time Associated Diagnosis Comments NM PHARM NUC STRESS TEST 2DAY W TRACING Routine 12/02/2021 11:16 AM AUTOMOBILE BODY REPAIR SUPERVISOR Coronary artery disease of [place] artery of [place] heart with stable angina pectoris CARDIOLOGY STRESS TEST ONLY, EXERCISE Routine 12/02/2021 9:30 AM AUTOMOBILE BODY REPAIR SUPERVISOR Persistent atrial fibrillation ([facility]) CAD (coronary artery disease) documented in this encounter Visit Diagnoses Diagnosis Persistent atrial fibrillation ([facility])- Primary Atrial fibrillation CAD (coronary artery disease) Coronary atherosclerosis of unspecified type of vessel, [place] or graft documented in this encounter Administered Medications Inactive Administered Medications - up to 3 most recent administrations Medication Order MAR Action Action Date Dose Rate Site regadenoson (LEXISCAN) injection 0.4 mg 0.4 mg, Intravenous, Once, 1 dose, On Sun12/02/21 at 1000, Administer over 10 seconds Given 12/02/2021 9:43 AM AUTOMOBILE BODY REPAIR SUPERVISOR 0.4 mg documented in this encounter Care Teams Loan Coordinator Relationship Specialty Start Date End Date Dennis Doran MD PCP - General INTERNAL MEDICINE 02/28/17 10/23/23 Joann Marquez, [facility]- [address] [facility] [address] [place] [address] [place] Hogshead Weigher NURSE PRACTITIONER 02/28/17 documented as of this encounter
--- OUTSIDE RECORDS SUMMARY | 2024-10-26 10:06 | XMS_ITS | Encounter Summary ---
Author Organization [facility] Address [facility]. 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
--- OUTSIDE RECORDS SUMMARY | 2024-10-26 10:06 | XMS_ITS | Encounter Summary ---
Author Organization [facility] Address [address] [place] [address]. 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 No / Unsure 12/19/2021 10:29 AM SUPERVISOR FINISHING documented as of this encounter Plan of Treatment Not on file documented as of this encounter Visit Diagnoses Not on filedocumented in this encounter Care Teams Health And Wellness Advisor Relationship Specialty Start Date End Date Dennis Doran MD PCP - General INTERNAL MEDICINE 02/28/17 10/23/23 Joann Marquez ANP-BC [address] [facility] [address] [place] [address] [facility] Technician NURSE PRACTITIONER 02/28/17 documented as of this encounter
--- OUTSIDE RECORDS SUMMARY | 2024-10-26 10:06 | XMS_ITS | Encounter Summary ---
Author Organization [facility] Address [address] [place] [address]. [place], [place] [address] [place] [address] Care Team Providers Care Instructor Of Sociology Name Role Phone Dennis Doran MD Primary Care Provider [phone] Ruthy Norris-ERICA Unavailable [phone] Reason for Visit * Imaging (Routine) - Closed Specialty Diagnoses / Procedures Referred By Cheyanne puentes Referred To Contact RADIOLOGY Diagnoses Coronary artery disease of [place] artery of [place] heart with stable angina pectoris ([facility]) Procedures NM PHARM NUC STRESS TEST 2DAY NM EXER NUC STRESS TEST 1DAY Ruthy Norris ANP-BC [id number] [place] [address] Phone: tel: fax: Referral ID Status Reason Start Date Expiration Date Visits Re quested Visits Authorized [id number] Closed 11/08/2021 12/09/2022 1 2 Encounter Details Date Type Department Care Team (Latest Contact Info) Description 12/02/2021 9:21 AM BI DATA ARCHITECT - 12/02/2021 9:22 AM [facility] Hospital Encounter [facility] Nuclear Cardiology 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 No / Unsure 12/02/2021 9:21 AM BI DATA ARCHITECT documented as of this encounter Medications at [...] 02/23/2014 12/21/19 2 2 vitamin D2, ergocalciferol, 85369 UNITS capsule Take 50,000 Units by mouth once a week. 10/28/2021 4 documented as of this encounter Plan of Treatment Not on file documented as of this encounter Procedures Procedure Name Priority Date/Time Associated Diagnosis Comments NM PHARM NUC STRESS TEST 2DAY W TRACING Routine 12/02/2021 11:16 AM BI DATA ARCHITECT Coronary artery disease of [place] artery of [place] heart with stable angina pectoris documented in this encounter Results * NM PHARM NUC STRESS TEST 2DAY (12/02/2021 11:16 AM BI DATA ARCHITECT) Anatomical Region Laterality Modality Cardiac Nuclear Medicine 12/02/2021 12:0 0 PM BI DATA ARCHITECT Narrative 12/02/2021 3:09 PM BI DATA ARCHITECT ?MYOCARDIAL PERFUSION SCAN Pat.Name: ??TANK KOWALSKI ?Pat.ID: ?[id number] ? St.Date: ?? 12/02/2021 ? Refer.: ??RUTHY NORRIS ? Exam Time: 12:00:00 PM ? Study Type:NC Ht Muscle Image SPECT Multi Nuclear Height: ?71in ?Weight: ?196lb ? BSA: ? 2.09 m2 ?Age: ??1975,46Y ? Sex: ? MALE ?Sonogrphr: Jose Rogers, TRAINING AND DEVELOPMENT SPECIALIST ? Pat. Stat.:Outpatient ? Reason for Study:coronary artery disease of [place] artery of [place] heart ??with stable angina pectoris Procedures: Two [...] MYOCARDIAL PERFUSION SCAN Pat.Name: TANK KOWALSKI Pat.ID: [id number] St.Date: 12/02/2021 Refer.MD: RUTHY NORRIS Exam Time: 12:00:00 PM Study Type:NC Ht Muscle Image SPECT Multi Nuclear Height: 71in Weight: 196lb BSA: 2.09 m2 Age: 8 1975,46Y Sex: MALE Sonogrphr: Jose Rogers, [facility] Pat. Stat.:Outpatient Reason for Study:coronary artery disease of [place] artery of [place] heart with stable angina pectoris Procedures: Two [...] Visit Diagnoses Diagnosis Coronary artery disease of [place] artery of [place] heart with stable angina pectoris (CMS/HCC) Persistent atrial fibrillation (CMS/HCC HHS/HCC)- Primary Atrial fibrillation CAD (coronary artery disease) Coronary atherosclerosis of unspecified type of vessel, [place] or graft documented in this encounter Care Teams Instructor Of Sociology Relationship Specialty Start Date End Date Dennis Doran MD PCP - General INTERNAL MEDICINE 02/28/17 10/23/23 Ruthy Norris ANP- [address] [facility] [address] [place] [address] [place] Public Address Systems Mechanic NURSE PRACTITIONER 02/28/17 documented as of this encounter
--- OUTSIDE RECORDS SUMMARY | 2024-10-26 10:06 | XMS_ITS | Encounter Summary ---
Author Organization [facility] Address [address] [place] [address]. [place] [address] [place] [address] Care Team Providers Care Pneumatic Hoist Operator Name Role Phone Dennis Crump MD Primary Care Provider [phone] Joann Marquez Unavailable [phone] Reason for Visit * Reason Comments Follow Up Encounter Details Date Type Department Care Team ([facility] st Contact Info) Description 11/08/2021 8:30 AM ACCOUNTS RECEIVABLE CLERK Office Visit [facility] [address] [place] [address] Joann Marquez ANP-BC [address] [facility] [address] [place] [address] Follow Up Social History Tobacco Use Types [...] 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 Yes 11/07/2021 3:01 PM ACCOUNTS RECEIVABLE CLERK documented as of this encounter Last Filed Vital Signs Vital Sign Reading Time Taken Comments Blood Pressure 126/78 11/08/2021 8:30 AM ACCOUNTS RECEIVABLE CLERK Pulse 80 11/08/2021 8:27 AM ACCOUNTS RECEIVABLE CLERK Temperature - - Respiratory Rate 22 11/08/2021 8:27 AM ACCOUNTS RECEIVABLE CLERK Oxygen Saturation - - Inhaled Oxygen Concentration - - Weight 88.9 kg (196 lb) 11/08/2021 8:27 AM ACCOUNTS RECEIVABLE CLERK Height 180.3 cm (5' 11 ) 11/08/2021 8:27 AM ACCOUNTS RECEIVABLE CLERK Body Mass Index 27.34 11/08/2021 8:27 AM ACCOUNTS RECEIVABLE CLERK documented in this encounter Patient Instructions * Patient Instructions* MARIO Mendenhall - 11/08/2021 8:30 AM ACCOUNTS RECEIVABLE CLERK Our scheduling office will contact you to arrange an exercise nuclear stress test in the near future UNTS RECEIVABLE CLERK documented in this encounter Progress Notes * MARIO Mendenhall - 11/08/2021 8:30 AM CST From the office of Dieter Arechiga MD & Joann Marquez APRN Dear Dr. DENNIS CRUMP MD: Your patient, Tank Kowalski was seen on 11/08/2021 at the [facility]. Orders Placed This Encounter ??? LIPOPROTEIN, LDL [...] Comments: Diagnoses/Impression: 1. Coronary artery disease of [place] artery of [place] heart with stable angina pectoris (CMS/HCC) NM EXER NUC STRESS TEST 1DAY 2. Primary hypertension 3. Hyperlipidemia, unspecified hyperlipidemia type 4. Tobacco use 5. Mixed hyperlipidemia LIPOPROTEIN, LDL CHOL, DIRECT LIPID PANEL AST/SGOT CANCELED: LIPID PANEL CANCELED: AST/SGOT CANCELED: LIPOPROTEIN, LDL CHOL, DIRECT 6. Encounter for long-term (current) drug use CANCELED: LIPID PANEL CANCELED: AST/SGOT CANCELED: LIPOPROTEIN, LDL CHOL, DIRECT PCP: DENNSI CRUMP MD UNTS RECEIVABLE CLERK * MARIO Mendenhall - 11/08/2021 8:30 AM [...] are pending results of his stress test. UNTS RECEIVABLE CLERK documented in this encounter Plan of Treatment Not on file documented as of this encounter Visit Diagnoses Diagnosis Coronary artery disease of [place] artery of [place] heart with stable angina pectoris ([facility])- Primary Primary hypertension Unspecified essential hypertension Hyperlipidemia, unspecified hyperlipidemia type Tobacco use Tobacco use disorder Mixed hyperlipidemia Encounter for long-term (current) drug use Encounter for long-term (current) use of other medications documented in this encounter Care Teams Pneumatic Hoist Operator Relationship Specialty Start Date End Date Dennis Crump MD PCP - General INTERNAL MEDICINE 02/28/17 10/23/23 Joann Marquez ANP-BC [address] [facility] [address] [place] [address] [place] Physical Education Instructor NURSE PRACTITIONER 02/28/17 documented as of this encounter
--- OUTSIDE RECORDS SUMMARY | 2024-10-26 10:07 | XMS_ITS | Encounter Summary ---
Author Organization [facility] Address [facility]6 [facility] [place] [address] [place] [address] Care Team Providers Care [place] Auditor Name Role Phone Dennis Crump MD Primary Care Provider [phone] Joann Marquez Unavailable [phone] Reason for Visit * Reason Comments Follow Up Encounter Details Date Type Department Care Team ([facility] st Contact Info) Description 01/21/2021 1:30 PM CDT [facility] [address] [place] [address] Joann Marquez ANP-BC [address] [facility] [address] [place] [address] Follow Up Social History Tobacco Use Types [...] 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 Medications: Current Outpatient Medications: ??? clopidogrel 75 [...] Comments: Diagnoses/Impression: 1. Coronary artery disease involving [place] coronary artery of [place] heart without angina pectoris 2. Tobacco use [...] denies associated symp toms. He said his passenger relations representative is going to check thyroid function studies [...] EKG today shows sinus rhythm with septal MD, age indeterminate with no significant change. His [...] Visit Diagnoses Diagnosis Coronary artery disease involving [place] coronary artery of [place] heart without angina pectoris- Primary Tobacco use Tobacco use disorder Essential hypertension Unspecified essential hypertension Hyperlipidemia, unspecified hyperlipidemia type documented in this encounter Care Teams [place] Auditor Relationship Specialty Start Date End Date Dennis Crmup MD PCP - General INTERNAL MEDICINE 02/28/17 10/23/23 Joann Marquez ANP-BC [address] [facility] [address] [address] [place] Layboy Tender NURSE PRACTITIONER 02/28/17 documented as of this encounter
--- OUTSIDE RECORDS SUMMARY | 2024-10-26 10:07 | XMS_ITS | Encounter Summary ---
Author Organization [facility] Address [address] [place] [address]. [place], [place] [address] [place] [address] Care Team Providers Care Lamp Mechanic Name Role Phone Dennis Doran MD Primary Care Provider [phone] Joann Marquez [facility]- Unavailable [phone] Encounter Details Date Type Department Care Team (Late st Contact Info) Description 10/31/2019 Orders Only [facility] [address] [place] [address] Dieter Arechiga MD 602 [facility] [address] [place] [address] Social History Tobacco Use Types Packs/Day [...] 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 Not on file Not on file Not on file Not on file Not on file Not on file documented as of this encounter Plan of Treatment Scheduled Orders Name Type Priority Associated Diagnoses Orde r Schedule ELECTROCARDIOGRAM EKG-NonRad Routine Coronary artery disease involving [place] coronary artery of [place] heart without angina pectoris Ordered: 10/31/2019 documented as of this encounter Visit Diagnoses Diagnosis Coronary artery disease involving [place] coronary artery of [place] heart without angina pectoris- Primary documented in this encounter Care Teams Lamp Mechanic Relationship Specialty Start Date End Date Dennis Doran MD PCP - General INTERNAL MEDICINE 02/28/17 10/23/23 Joann Marquez ANP- [address] [address] [place] Medical Auditor NURSE PRACTITIONER 02/28/17 documented as of this encounter
--- OUTSIDE RECORDS SUMMARY | 2024-10-26 10:07 | XMS_ITS | Encounter Summary ---
Author Organization [facility] Address [address] [place] [address]. [place] [address] [place] [address] Care Team Providers Care Roll Over Press Operator Name Role Phone Dennis Doran MD Primary Care Provider [phone] Joann Marquez-ERICA Unavailable [phone] Reason for Visit * Reason Onset Date Comments Advise 12/24/2019 Encounter Details Date Type Department Care Team ([facility] st Contact Info) Description 12/24/2019 Telephone [employer] [facility] [address] [place] [address] Joann Marquez, AURELIANO-BC [address] 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 See addendum to clinic note. RER PIE BAKERY documented in this encounter Plan of Treatment Not on file documented as of this encounter Visit Diagnoses Not on filedocumented in this encounter Care Teams Roll Over Press Operator Relationship Specialty Start Date End Date Dennis Doran MD PCP - General INTERNAL MEDICINE 02/28/17 10/23/23 Joann Marquez ANP-BC [address] [facility] [address] [place] [address] [place] Diesel Lube Tech NURSE PRACTITIONER 02/28/17 documented as of this encounter
--- OUTSIDE RECORDS SUMMARY | 2024-10-26 10:07 | XMS_ITS | Encounter Summary ---
Author Organization [facility] Address [address] [place] [address]. 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
--- OUTSIDE RECORDS SUMMARY | 2024-10-26 10:07 | XMS_ITS | Encounter Summary ---
Author Organization [facility] Address [address] [place] [address]. [place], [place] [address] [place] [address] Care Team Providers Care Customer Experience Professional Name Role Phone Dennis Doran MD Primary Care Provider [phone] Joann Marquez [facility]- Unavailable [phone] Encounter Details Date Type Department Care Team (Late st Contact Info) Description 10/24/2019 Orders Only 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 [address] [place] [address] [place] Insurance Auditor NURSE PRACTITIONER 02/28/17 documented as of this encounter
--- OUTSIDE RECORDS SUMMARY | 2024-10-26 10:07 | XMS_ITS | Encounter Summary ---
Author Organization [facility] Address [address] [place] [address]. [place] [address] [place] [address] Care Team Providers Care Corporate Aircraft Mechanic Name Role Phone Dennis Doran MD Primary Care Provider [phone] Joann Marquez Unavailable Reason for Visit * Reason Onset Date Comments Called To Cancel Office Appt. 10/31/2019 Encounter Details Date Type Department Care Team ([facility] st Contact Info) Description 10/31/2019 Telephone [facility] AT [facility] [address] [place] [address] Joann Marquez ANP-BC [address] [facility] [address] [place] [address] Called To Cancel Office Appt. 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 CY SALES DEVELOPMENT ASSOCIATE * Katherine Stauffer - 11/05/2019 4:22 PM CST Patient called back to reschedule cancelled appt; rescheduled to 11/21/19 at 12:45 pm with EVARISTO Almanza at [facility]. He states he only has about 5 Brilinta left at home, and asked that we send a refill to [facility] in [place]. CY SALES DEVELOPMENT ASSOCIATE * Katherine Stauffer - 10/31/2019 8:12 AM CST The patient called stating he is still sick and would like to cancel his appt this morning; he states he will call back next week to reschedule. CY SALES DEVELOPMENT ASSOCIATE documented in this encounter Plan of Treatment Not on file documented as of this encounter Visit Diagnoses Not on filedocumented in this encounter Care Teams Corporate Aircraft Mechanic Relationship Specialty Start Date End Date Dennis Doran MD PCP - General INTERNAL MEDICINE 02/28/17 10/23/23 Joann Marquez ANP- [address] [facility] [address] [place] [address] Heath Fixture Maker NURSE PRACTITIONER 02/28/17 documented as of this encounter
--- OUTSIDE RECORDS SUMMARY | 2024-10-26 10:07 | XMS_ITS | Encounter Summary ---
Author Organization [facility] Address [address] [place] [address]. 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 Not on file Not on file Not on file Not on file Not on file Not on file documented as of this encounter Plan of Treatment Not on file documented as of this encounter Procedures Procedure Name Priority Date/Time Associated Diagnosis Comments ELECTROCARDIOGRAM (NON MIDMARK ACQUIRED) Routine 01/21/2021 1:11 PM CDT Coronary artery disease involving [place] coronary artery of [place] heart without angina pectoris documented in this encounter Results * ELECTROCARDIOGRAM (NON MIDMARK ACQUIRED) (01/21/2021 1:11 PM CDT) 01/21/2021 1:11 PM CDT Narrative [facility] - 01/24/2021 9:24 AM CDT ? [facility], [facility] ?[address], [place] ??[address] ? Test Date: ?2021-01-21 Pat Name: ? TANK CAMPBELLJOSE ANGEL ?Department: ? Room: ? Gender: ? Male ? Film Touch Up Inspector: ?? jdc : ?1975 ? Requested By: NATE SUTTON Order Number: [id number] ?Reading MD: ?? Nate Sutton ? Measurements Intervals ?[place] ? Rate: ? 70 ? P: ?20 OK: ? 137 ?QRS: ?3 QRSD: ? 81 ? T: ?40 QT: ? 363 ? QTc: ?393 ? Interpretive Statements SINUS RHYTHM Cannot rule out SEPTAL MYOCARDIAL INFARCTION, OF INDETERMINATE AGE No significant change since prior tracing Procedure Note Nate Sutton MD - 01/24/2021 [facility], [place] [address] [place] [address] Test Date: 2021-01-21 Pat Name: TANK KOWALSKI Department: Room: Gender: Male Film Touch Up Inspector: maddie : 1975 Requested By: NATE SUTTON Order Number: [id number] Reading MD: Nate Sutton Measurements Intervals [place] Rate: 70 P: 20 OK: 137 QRS: 3 QRSD: 81 T: 40 QT: 363 QTc: 393 Interpretive Statements SINUS RHYTHM Cannot rule out SEPTAL MYOCARDIAL INFARCTION, OF INDETERMINATE AGE No significant change since prior tracing us Nate Wade MD PROCEDURES-ORDERABLE NO CHARG E Final Result [facility] documented in this encounter Visit Diagnoses Diagnosis Coronary artery disease involving [place] coronary artery of [place] heart without angina pectoris- Primary documented in this encounter Care Teams Aquaculture Farm Manager Relationship Specialty Start Date End Date Dennis Doran MD PCP - General INTERNAL MEDICINE 02/28/17 10/23/23 Joann Marquez, [facility]- [address] [facility] [address] [place] [address] Bard Vise Hand NURSE PRACTITIONER 02/28/17 documented as of this encounter
--- OUTSIDE RECORDS SUMMARY | 2024-10-26 10:07 | XMS_ITS | Encounter Summary ---
Author Organization [facility] Address [address] [place] [address]. [place] [address] [place] [address] Care Team Providers Care Ice Cream Dipper Name Role Phone Dennis Crump MD Primary Care Provider [phone] Joann Marquez-ERICA Unavailable [phone] Reason for Visit * Reason Comments Follow Up Encounter Details Date Type Department Care Team ([facility] st Contact Info) Description 12/24/2019 9:45 AM LAW LIBRARIAN Office Visit [facility] [address] [place] [address] Joann Marquez, AURELIANO-BC [address] [facility] [address] [place] [address] Follow Up Social History Tobacco Use Types [...] 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 Not on file Not on file Not on file Not on file Not on file Not on file documented as of this encounter Last Filed Vital Signs Vital Sign Reading Time Taken Comments Blood Pressure 140/78 12/24/2019 9:49 AM LAW LIBRARIAN Pulse 73 12/24/2019 9:43 AM LAW LIBRARIAN ekg Temperature - - Respiratory Rate 18 12/24/2019 9:43 AM LAW LIBRARIAN Oxygen Saturation - - Inhaled Oxygen Concentration - - Weight 94.7 kg (208 lb 12.8 oz) 12/24/2019 9:43 AM LAW LIBRARIAN Height 177.8 cm (5' 10 ) 12/24/2019 9:43 AM LAW LIBRARIAN Body Mass Index 29.96 12/24/2019 9:43 AM LAW LIBRARIAN documented in this encounter Patient Instructions * Patient Instructions* MARIO Mendenhall - 12/24/2019 9:45 AM LAW LIBRARIAN Stop Brilinta when you complete the current supply. You will take your first dose of Plavix (clopidogrel) on the same day you take your last dose of Brilinta. The following day you will take Plavix 75 mg daily and no further Brilinta. Stop aspirin after your second dose of Plavix. Stop smoking!! LIBRARIAN LIBRARIAN documented in this encounter Progress Notes * [...] Comments: Diagnoses/Impression: 1. Coronary artery disease involving [place] coronary artery of [place] heart without angina pectoris 2. Essential hypertension [...] April of 2018. He had presented to [facility] with some chest pain. He underwent [...] which shows sinus rhythm with possible septal NE. He has some chronic repolarization changes with [...] Visit Diagnoses Diagnosis Coronary artery disease involving [place] coronary artery of [place] heart without angina pectoris- Primary Essential hypertension Unspecified essential hypertension Hyperlipidemia, unspecified hyperlipidemia type Tobacco use Tobacco use disorder documented in this encounter Care Teams Ice Cream Dipper Relationship Specialty Start Date End Date Dennis Crump MD PCP - General INTERNAL MEDICINE 02/28/17 10/23/23 Joann Marquez, ANP- [address] [facility] [address] [place] [address] [place] Senior Principal Architect NURSE PRACTITIONER 02/28/17 documented as of this encounter
--- OUTSIDE RECORDS SUMMARY | 2024-10-26 10:07 | XMS_ITS | Encounter Summary ---
Author Organization [facility] Address [facility] [facility] [place] [address] [place] [address] Care Team Providers Care Field Evidence Technician Name Role Phone Dennis Doran MD Primary Care Provider [phone] Joann Marquez Unavailable [phone] Reason for Visit * Reason Onset Date Comments Record Request 01/21/2021 Encounter Details Date Type Department Care Team ([facility] st Contact Info) Description 01/21/2021 Telephone [facility] [address] [place] [address] Joann Marquez ANP-BC [address] [facility][1] [address] [place] [address] Record Request Social History Tobacco [...] 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 Doran's office to be faxed to [phone]. * MARIO Mendenhall - 01/21/2021 3:39 PM CDT Please request most recent CBC, CMP, Lipid from primary service. Thanks. documented in this encounter Plan of Treatment Not on file documented as of this encounter Visit Diagnoses Diagnosis Coronary artery disease involving [place] coronary artery of [place] heart without angina pectoris- Primary Essential hypertension Unspecified essential hypertension Hyperlipidemia, unspecified hyperlipidemia type Encounter for long-term current use of medication documented in this encounter Care Teams Field Evidence Technician Relationship Specialty Start Date End Date Dennis Doran MD PCP - General INTERNAL MEDICINE 02/28/17 10/23/23 Joann Marquez, ANP- [address] [facility][1] [address] [place] [address] [place] Cloth Mercerizer Operator NURSE PRACTITIONER 02/28/17 documented as of this encounter
--- OUTSIDE RECORDS SUMMARY | 2024-10-26 10:07 | XMS_ITS | Encounter Summary ---
Author Organization [facility] Address [facility] [facility] [place] [address] [place] [address] Care Team Providers Care Child Adolescent Psychiatrist Name Role Phone Dennis Doran MD Primary Care Provider [phone] Joann Marquez-ERICA Unavailable [phone] Reason for Visit * Reason Onset Date Comments Reschedule 10/17/2019 Encounter Details Date Type Department Care Team (Late st Contact Info) Description 10/17/2019 Telephone [facility] [address] [place] [address] Joann Marquez, AURELIANO-BC [address] [facility] [address] [place] [address] Reschedule Social History Tobacco Use [...] 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 Patient verbalized understanding, and I thanked him for rescheduling. He states he does have enough medicine to last until then. Letter and med list mailed to patient. OM STOP ATTACHER documented in this encounter Plan of Treatment Not on file documented as of this encounter Visit Diagnoses Not on filedocumented in this encounter Care Teams Child Adolescent Psychiatrist Relationship Specialty Start Date End Date Dennis Doran MD PCP - General INTERNAL MEDICINE 02/28/17 10/23/23 Joann Marquez, ANP- [address] [facility] [address] [place] [address] [place] Machine Printer NURSE PRACTITIONER 02/28/17 documented as of this encounter
--- OUTSIDE RECORDS SUMMARY | 2024-10-26 10:07 | XMS_ITS | Encounter Summary ---
Author Organization [facility] Address [address] [place] [address]. [place] [address] [place] [address] Care Team Providers Care Crozer Name Role Phone Dennis Doran MD Primary Care Provider [phone] Joann Marquez-ERICA Unavailable [phone] Reason for Visit * Reason Onset Date Comments Reschedule 10/24/2019 Encounter Details Date Type Department Care Team (Late st Contact Info) Description 10/24/2019 Telephone [facility] AT [facility] [address] [place] [address] Joann Marquez ANP-BC [address] [facility] [address] [place] [address] Reschedule Social History Tobacco Use [...] 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 Patient verbalized understanding. Letter and med list mailed to patient. SALES ENGINEER documented in this encounter Plan of Treatment Not on file documented as of this encounter Visit Diagnoses Not on filedocumented in this encounter Care Teams Crozer Relationship Specialty Start Date End Date Dennis Doran MD PCP - General INTERNAL MEDICINE 02/28/17 10/23/23 Joann Marquez, AURELIANO- [address] [facility] [address] [place] [address] [place] Varnisher Plasticoater NURSE PRACTITIONER 02/28/17 documented as of this encounter
--- OUTSIDE RECORDS SUMMARY | 2024-10-26 10:07 | XMS_ITS | Encounter Summary ---
Author Organization [facility] Address [facility] [facility] 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
--- OUTSIDE RECORDS SUMMARY | 2024-10-26 10:07 | XMS_ITS | Encounter Summary ---
Author Organization [facility] Address [address] [place] [address]. [place], [place] [address] [place] [address] Care Team Providers Care Maternity Floor Supervisor Name Role Phone Dennis Doran MD Primary Care Provider [phone] Joann Marquez 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 Not on file Not on file Not on file Not on file Not on file Not on file documented as of this encounter Plan of Treatment Not on file documented as of this encounter Procedures Procedure Name Priority Date/Time Associated Diagnosis Comments ELECTROCARDIOGRAM (NON MIDMARK ACQUIRED) Routine 12/24/2019 9:47 AM RESIDENT SERVICES COORDINATOR Coronary artery disease involving absent[place]shaw[place] coronary artery of absentee-shawnee heart without angina pectoris documented in this encounter Results * ELECTROCARDIOGRAM (12/24/2019 9:47 AM RESIDENT SERVICES COORDINATOR) 12/24/2019 9:47 AM RESIDENT SERVICES COORDINATOR Narrative [facility] - 12/26/2019 3:04 PM RESIDENT SERVICES COORDINATOR ? [facility] ?[address] [place], [place] ??[address] ? Test Date: ?2019-12-24 Pat Name: ? TANK KOWALSKI ?Department: ? Room: ? Gender: ? Male ? Photoengraving Retoucher: ?? : ?1975 ? Requested By: NATE SUTTON Order Number: [id number] ?Reading MD: ?? Nate Sutton ? Measurements Intervals ?[place] ? Rate: ? 73 ? P: ?19 AL: ? 123 ?QRS: ?-10 QRSD: ? 86 ? T: ?43 QT: ? 376 ? QTc: ?415 ? Interpretive Statements SINUS RHYTHM SEPTAL MYOCARDIAL INFARCTION, OF INDETERMINATE AGE DENT SERVICES COORDINATOR Procedure Note Nate Sutton MD - 12/26/2019 [facility], [facility] [address] [place] [address] Test Date: 2019-12-24 Pat Name: TANK KOWALSKI Department: Room: Gender: Male Photoengraving Retoucher: : 1975 Requested By: NATE SUTTON Order Number: [id number] Dougie MD: Nate Sutton Measurements Intervals [place] Rate: 73 P: 19 AL: 123 QRS: -10 QRSD: 86 T: 43 QT: 376 QTc: 415 Interpretive Statements SINUS RHYTHM SEPTAL MYOCARDIAL INFARCTION, OF INDETERMINATE AGE DENT SERVICES COORDINATOR us Nate Wade MD PROCEDURES-ORDERABLE NO CHARG E Final Result [facility] [address] [place] [address] documented in this encounter Visit Diagnoses Diagnosis Coronary artery disease involving [place]shaw[place] coronary artery of [place]shawnee heart without angina pectoris- Primary documented in this encounter Care Teams Maternity Floor Supervisor Relationship Specialty Start Date End Date Dennis Doran MD PCP - General INTERNAL MEDICINE 02/28/17 10/23/23 Joann Marquez, [facility]- [address] [facility] [address] [place] [address] [place] Dope Firer NURSE PRACTITIONER 02/28/17 documented as of this encounter
--- OUTSIDE RECORDS SUMMARY | 2024-10-26 10:07 | XMS_ITS | Encounter Summary ---
Author Organization [facility] Address [facility] 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
--- OUTSIDE RECORDS SUMMARY | 2024-10-26 10:07 | XMS_ITS | Encounter Summary ---
Author Organization [facility] Address [address] [place] [address]. 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
--- OUTSIDE RECORDS SUMMARY | 2024-10-26 10:07 | XMS_ITS | Encounter Summary ---
Author Organization [facility] Address [address] [place] [address]. 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 Not on file Not on file Not on file Not on file Not on file Not on file documented as of this encounter Plan of Treatment Not on file documented as of this encounter Visit Diagnoses Diagnosis Coronary artery disease involving [place] coronary artery of [place] heart without angina pectoris- Primary Essential hypertension Unspecified essential hypertension documented in this encounter Care Teams Account Analyst Relationship Specialty Start Date End Date Dennis Doran MD PCP - General INTERNAL MEDICINE 02/28/17 10/23/23 Joann Marquez, [facility]- [address] [facility] [address] [place] [address] [place] Aircraft Painter Apprentice NURSE PRACTITIONER 02/28/17 documented as of this encounter
--- OUTSIDE RECORDS SUMMARY | 2024-10-26 10:07 | XMS_ITS | Encounter Summary ---
Author Organization [facility] Address [facility]6 [facility] [place] [address] [place] [address] Care Team Providers Care Progress Developer Name Role Phone Dennis Doran MD Primary Care Provider [phone] Joann Marquez-ERICA Unavailable Reason for Visit * Reason Onset Date Comments Appointment Request 12/05/2019 Encounter Details Date Type Department Care Team ([facility] st Contact Info) Description 12/05/2019 Telephone [facility] [address] [place] [address] Joann Marquez, AURELIANO-BC [address] [facility] [address] [place] [address] Appointment Request Social History Tobacco [...] 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 CLIMBER * Katherine Wagner Eh - 12/05/2019 4:08 PM CST Patient called asking when his next appt is scheduled, he thought it was later this month. His pharmacy told him his last refill of Brilinta was denied. I advised him I had him scheduled 11/21/19. Appt rescheduled to 12/24/19 at 9:45 am with Joann Marquez [facility] PRES[facility] at [facility]. Patient verbalized understanding. Letter and med list mailed to patient. He asked that Brilinta be sent to [facility] in [place]. Patient may be reached at [phone] if any questions. CLIMBER documented in this encounter Plan of Treatment Not on file documented as of this encounter Visit Diagnoses Not on filedocumented in this encounter Care Teams Progress Developer Relationship Specialty Start Date End Date Dennis Doran MD PCP - General INTERNAL MEDICINE 02/28/17 10/23/23 Joann Marquez ANP- [address] [facility] [address] [place] [address] [place] Cat Scan Technologist NURSE PRACTITIONER 02/28/17 documented as of this encounter
--- OUTSIDE RECORDS SUMMARY | 2024-10-26 10:07 | XMS_ITS | Encounter Summary ---
Author Organization [facility] Address [address] [place] [address]. [place], [place] [address] [place] [address] Care Team Providers Care Gis Administrator Name Role Phone Dennis Doran MD Primary Care Provider [phone] Joann Marquez [facility]- Unavailable [phone] Reason for Visit * Reason Onset Date Comments Information 02/20/2020 [facility]et[facility]mic[facility] Educatio n Encounter Details Date Type Department Care Team (Late st Contact Info) Description 02/20/2020 Telephone [facility] [address] [place] [address] Ami Pearson I, RN Information ([employer] Education) Social History Tobacco Use Types Packs/Day [...] 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 Call back number given [phone] Ext [phone]. Link sent as well. documented in this encounter Plan of Treatment Not on file documented as of this encounter Visit Diagnoses Not on filedocumented in this encounter Care Teams Gis Administrator Relationship Specialty Start Date End Date Dennis Doran MD PCP - General INTERNAL MEDICINE 02/28/17 10/23/23 Joann Marquez, ANP- [address] [facility] [address] [place] [address] [place] It Teacher NURSE PRACTITIONER 02/28/17 documented as of this encounter
--- OUTSIDE RECORDS SUMMARY | 2024-10-26 10:08 | XMS_ITS | Encounter Summary ---
Author Organization [facility] Address [facility] [place] [place] [address] [place] [address] Care Team Providers Care Loan Analyst Name Role Phone Dennis Doran MD Primary Care Provider [phone] Joann Marquez-ERICA Unavailable [phone] Denisha Hansen Primary Care Provider [phone] Encounter Details Date Type Department Care Team (Late st Contact Info) Description 09/09/2015 Abstract [facility] [address] [place] [address] Joann Marquez ANP-BC [address] 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 Not on file Not on file documented as of this encounter Plan of Treatment Not on file documented as of this encounter Visit Diagnoses Not on filedocumented in this encounter Additional Health Concerns Infection Onset Date Last Indicated Resolved Time COVID-19 Rule Out 01/06/2022 01/06/2022 01/07/2022 2:32 PM CDT documented as of this encounter Care Teams Loan Analyst Relationship Specialty Start Date End Date Dennis Doran MD PCP - General INTERNAL MEDICINE 02/28/17 10/23/23 Denisha Hansen PA [address] [place] [address] PCP - General PHYSICIAN BOTTLER HELPER 10/24/23 Joann Marquez, ANP- [address] [facility] [address] [place] [address] [place] Teacher Of The Sight Impaired NURSE PRACTITIONER 02/28/17 documented as of this encounter
--- OUTSIDE RECORDS SUMMARY | 2024-10-26 10:08 | XMS_ITS | Encounter Summary ---
Author Organization [facility] Address [address] [place] [address]. [place], [place] [address] [place] [address] Care Team Providers Care Orthotic Finish Grinding Technician Name Role Phone Dennis Doran MD Primary Care Provider [phone] Joann Marquez [facility] Unavailable [phone] Encounter Details Date Type Department Care Team (Late st Contact Info) Description 02/20/2014 Abstract [facility] [address] [place] [address] Nate Sutton MD [address] [facility] [address] [place] [address] Social History Tobacco Use Types Packs/Day [...] CDT) 02/20/2014 10:0 4 AM CDT Narrative [facility] - 02/20/2014 1:59 PM CDT ? [facility] [address] [place], [place] ??[address] ? Test Date: ?2014-02-20 Pat Name: ? TANK KOWALSKI ?Department: ?? 1 ? Room: ? Gender: ? 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 : ?1975 ? Requested By: NATE SUTTON Order Number: [id number] ? Reading MD: ?? Kal Milton ? Measurements Intervals ?[place] ? Rate: ? 73 ? P: ?52 VA: ? 139 ?QRS: ?-29 QRSD: ? 95 ? T: ?42 QT: ? 389 ? QTc: ?430 ? Interpretive Statements SINUS RHYTHM MODERATE LEFT AXIS DEVIATION [QRS AXIS < -20] Procedure Note , Generic MD Clotilde - 06/18/2019 [facility] [address] [place] [address] Test Date: 2014-02-20 Pat Name: TANK KOWALSKI Department: 1 Room: Gender: Tetryl Boiling Tub Operator: : 1975 Requested By: NATE SUTTON Order Number: [id number] Reading MD: Kal Milton Measurements Intervals [place] Rate: 73 P: 52 VA: 139 QRS: -29 QRSD: 95 T: 42 QT: 389 QTc: 430 Interpretive Statements SINUS RHYTHM MODERATE LEFT AXIS DEVIATION [QRS AXIS < -20] us Generic Conversion Md ROGERS ECG ORDERABLES Final R esult Performing Organization Address City/State/[facility] ny Phone Number [facility] documented in this encounter Visit Diagnoses Diagnosis Chest pain Chest pain, unspecified documented in this encounter Care Teams Orthotic Finish Grinding Technician Relationship Specialty Start Date End Date Dennis Doran MD PCP - General INTERNAL MEDICINE 02/28/17 10/23/23 Joann Marquez ANP- [address] [facility] [address] [place] [address] [place] Inspector Electromechanical NURSE PRACTITIONER 02/28/17 documented as of this encounter
--- OUTSIDE RECORDS SUMMARY | 2024-10-26 10:08 | XMS_ITS | Encounter Summary ---
Author Organization [facility] Address [address] [place] [address]. [place], [place] [address] [place] [address] Care Team Providers Care Complaint Supervisor Name Role Phone Unavailable Primary Care Provider Unavailabl e Encounter Details Date Type Department Care Team (Late st Contact Info) Description 01/11/2015 [facility] [address] [place] [address] , Dionicio Mabry MD Social History Tobacco [...]
--- OUTSIDE RECORDS SUMMARY | 2024-10-26 10:08 | XMS_ITS | Encounter Summary ---
Author Organization [facility] Address [address] [place] [address]. 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
--- OUTSIDE RECORDS SUMMARY | 2024-10-26 10:08 | XMS_ITS | Encounter Summary ---
Author Organization [facility] Address [address] [place] [address]. [place], [place] [address] [place] [address] Care Team Providers Care Retail Services Professional Name Role Phone Unavailable Primary Care Provider Unavailabl e Encounter Details Date Type Department Care Team (Late st Contact Info) Description 02/20/2014 Abstract [facility] [address] [place] [address] , Generic ConversionMD Social History [...]
--- OUTSIDE RECORDS SUMMARY | 2024-10-26 10:08 | XMS_ITS | Encounter Summary ---
Author Organization [facility] Address [address] [place] [address]. [place], [place] [address] [place] [address] Care Team Providers Care Delivery Room Supervisor Name Role Phone Unavailable Primary Care Provider Unavailabl e Encounter Details Date Type Department Care Team (Late st Contact Info) Description 09/27/2015 Abstract [facility] [address] [place] [address] , Dionicio Mabry MD Social History Tobacco [...]
--- OUTSIDE RECORDS SUMMARY | 2024-10-26 10:08 | XMS_ITS | Encounter Summary ---
Author Organization [facility] Address [address] [place] [address]. [place], [place] [address] [place] [address] Care Team Providers Care Food And Drug Research Scientist Name Role Phone Dennis Doran MD Primary Care Provider [phone] 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 Not on file Not on file Not on file Not on file Not on file Not on file documented as of this encounter Plan of Treatment Not on file documented as of this encounter Visit Diagnoses Diagnosis Atherosclerotic heart disease of [place] coronary artery without angina pectoris Coronary atherosclerosis of [place] coronary artery documented in this encounter Care Teams Food And Drug Research Scientist Relationship Specialty Start Date End Date Dennis Doran MD PCP - General INTERNAL MEDICINE 02/28/17 10/23/23 Joann Marquez, ANP- [address] [facility] [address] [place] [address] [place] Oceanographer Geological NURSE PRACTITIONER 02/28/17 documented as of this encounter
--- OUTSIDE RECORDS SUMMARY | 2024-10-26 10:08 | XMS_ITS | Encounter Summary ---
Author Organization [facility] Address [address] [place] [address]. [place], [place] [address] [place] [address] Care Team Providers Care Solar Energy Consultant And Designer Name Role Phone Unavailable Primary Care Provider Unavailabl e Encounter Details Date Type Department Care Team (Late st Contact Info) Description 09/22/2015 [facility] [address] [place] [address] , Dionicio Mabry MD Social History Tobacco [...]
--- OUTSIDE RECORDS SUMMARY | 2024-10-26 10:08 | XMS_ITS | Encounter Summary ---
Author Organization [facility] Address [address] [place] [address]. [place], [place] [address] [place] [address] Care Team Providers Care Field Representative/Health Education Name Role Phone Unavailable Primary Care Provider Unavailabl e Encounter Details Date Type Department Care Team (Late st Contact Info) Description 11/02/2014 [facility] [address] [place] [address] , Dionicio Mabry MD Social History Tobacco [...]
--- OUTSIDE RECORDS SUMMARY | 2024-10-26 10:08 | XMS_ITS | Encounter Summary ---
Author Organization [facility] Address [facility]6 [facility] 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
--- OUTSIDE RECORDS SUMMARY | 2024-10-26 10:08 | XMS_ITS | Encounter Summary ---
Author Organization [facility] Address [address] [place] [address]. [place], [place] [id number] [place] [id number] Care Team Providers Care Dispatch Clerk Name Role Phone Dennis Crump MD Primary Care Provider [phone] Joann Marquez [facility]- Unavailable [phone] Reason for Referral * Imaging (Urgent) - Closed Specialty Diagnoses / Procedures Referred By Cheyanne puentes Referred To Contact Procedures XA [facility] POSS Mike Lovell MD [address] [facility] [address] [place] [phone] Phone: tel: fax: Referral ID Status Reason Start Date Expiration Date Visits Re quested Visits Authorized [id number] Closed 05/22/2018 06/22/2019 1 1 Reason for Visit * Reason Comments Chest Pain * Auth/Cert Specialty Diagnoses / Procedures Referred By Cheyanne puentes Referred To Contact Diagnoses Chest pain, unspecified type Chest pain Procedures OBSV Referral ID Status Reason Start Date Expiration Date Visits Re quested Visits Authorized [id number] 1 1 Encounter Details Date Type Department Care Team (Late st Contact Info) Description 05/21/2018 1:11 PM CDT - 05/22/2018 3:48 PM CDT Emergency [facility] Telemetry [place] [address] Steve Rockwell MD [address] [place], [place] [address] Ember [place] [address] [phone] (Work) Chest Pain Discharge Disposition: Home or [...] 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 Not on file Not on file [...] Your Medications These medications were sent to [facility] [address] [place] [address] [facility] [place] [address] [address] [facility] [phone] ??? nitroglycerin 0.4 MG SL tablet Disposition: [...] 5 minutes. Where can I learn more? [employer] http://www.heart.org/HEARTORG/Conditions/HeartAttack/AboutHeartAttacks/About-Hea rt-Attacks_UC_002038_Article.jsp [employer] http://www.heart.org/HEARTORG/Conditions/HeartAttack/SymptomsDiagnosisofHeartAtt ack/Nlnldg-Dnojg-Mhvw_HSI_462356_Mizzgul.jsp FamilyDoctor.org http://familydoctor.org/familydoctor/en/diseases-conditions/angina.printerview.a ll.html National Heart Lung and Blood Kipling http://www.nhlbi.nih.gov/health/health-topics/topics/angina/ Last Reviewed Date 2015-12-02 Consumer Information [...] right for you. Copyright Copyright ?? 2018 [employer]. and its affiliates and/or licensors. All rights reserved. * Attachments The following attachments cannot be sent through Care Everywhere. * QUITTING SMOKING (ARABIC) documented in this encounter Medications at Time [...] this encounter Progress Notes * Marycruz Champion, LAWN SPECIALIST - 05/22/2018 1:33 PM CDT RNCM spoke with the patient at bedside. The patient stated his name and date of . The patient verified his address, PCP Dennis Crump, and [employer] as his insurance provider. The patient states he lives at home with his parents. His parents will be his ride home at discharge. He states his only DME is his insulin pump, glucometer, and blood pressure cuff. He uses [facility] in [place]. He denies current home health care or [...] were discussed with the patient and/or family/personal sales utility representative. Questions were answered and the patient/family/personal sales utility representative verbalized understanding and desires to proceed. [...] with attending physician. 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 He is a smoker with type 1 diabetes mellitus diagnosed with was a teenager. He has a historyof CAD, status post prior stenting [address] Arechiga in [place]. Apparently the LAD. 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 ??? [employer] Social History [...] No results for input(s): PH, PCO2, PO2, [id number], BICARBWB, BASEDEFICIT, BASEEXCESS in the hagh504 hours. Imagining & Other Studies CXR NACPP Results for orders placed or performed during the hospital encounter of 05/21/18 ECG 12-Lead Narrative [facility] Test Date: 2018-05-21 Pat Name: RUBIA KOWALSKI Department: 41 Room: Gender: Male Director Digital Analytics: ALEK : 1975 Requested By: STEVE ROCKWELL Order Number: [id number] Reading MD: Measurements Intervals Edwards Rate: 74 P: 20 ND: 132 QRS: -14 QRSD: 93 T: 45 [...] with attending physician. 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 He is a smoker with type 1 diabetes mellitus diagnosed with was a teenager. He has a historyof CAD, status post prior stenting [address] Arechiga in [place]. Apparently the LAD. There is also moderate [...] OR Notes * Brief Op Note - Juains Frazier MD - 05/22/2018 11:58 AM CDT [...] symptoms. His cardiology care is provided in [place]. History of Present Illness Medical History ALLERGIES: [...] of 05/21/18 ECG 12-Lead Narrative [facility] [address] Test Date: 2018-05-21 Pat Name: RUBIA KOWALSKI Department: 41 Room: Gender: Male Director Digital Analytics: ALEK : 1975 Requested By: STEVE ROCKWELL Order Number: [id number] Reading MD: Measurements Intervals Edwards Rate: 74 P: 20 ND: 132 QRS: -14 QRSD: 93 T: 45 [...] XR CHEST PORTABLE Final Result by User, [id number] (05/21 6386) Date: 05/21/2018 12:54 PM Exam: XR CHEST [...] pain; moderate probably cardiac pain; low probability ACS/GA, PE Plan: 1. EKG 2. Aspirin 3. Chest x-ray 4. Labs 5. Above shows no discrete cause for the patient's symptoms. His HEART score is 4. Plan admission to the hospital for further evaluation and management 6. On-call hospitalist agrees to admit the patient 7. Patient reassessed frequently. Admission orders placed [facility] Score History: Chest discomfort, Relieved by [...] Chest pain, unspecified type (Primary) Disposition: Admit Steve Rockwell MD 05/21/18 1822 * Gabriella Gonzalez RN - 05/21/2018 12:39 PM CDT Came to ED for c/o chest pain that radiates up to left neck at times. Reports pain started 3-4 daysago. documented in this encounter Plan of Treatment Not on file documented as of this encounter Procedures Procedure Name Priority Date/Time Associated Diagnosis Comments XA [facility] POSS Today 05/22/2018 2:16 PM CDT POCT [...] documented in this encounter Results * XA [facility] POSS (05/22/2018 2:16 PM CDT) Anatomical Region Laterality Modality Cardiac Edger Machine Setter Narrative 05/29/2018 8:29 AM CDT Diagnostic Cardiac Catheterization Report Cardiac Catheterization / Electrophysiology Laboratory Patient Information Patient: RUBIA KOWALSKI Medical Records Number: [id number] Address: [address] [place] [address]: [place] ?? State: [place] Zip: [address] Date of : 1975 ?? Gender: Male Event Identifiers Date of Procedure: 05/22/2018 Catheterization Number: [id number] Attending MD: JUANIS FRAZIER Referring MD: Jen CRUMP MD Referring MD: MD Geni ([place]) Procedure Description Cor/LV Indications Primary Hypertension ?? [...] ??After adequate local anesthesia was given, a 6-Swedish sheath was placed in the right radial artery under ultrasound guidance. ??The sheath was flushed and a 5-Swedish Jonathan coronary diagnostic catheter was advanced over the guidewire, used to cannulate the left coronary artery and selective angiography was performed in the LINDSAY and RWANDAN projections. ??The catheter was then used to cannulate the right coronary artery and selective angiography was performed in the LINDSAY and RWANDAN projections. ??The catheter was then exchanged for a 5-Swedish pigtail catheter which was advanced into the [...] ?? DATE TRANSCRIBED: 05/24/18 Mike Lovell MD OSTEOPATHIC NEUROLOGIST Final Result * (ABNORMAL) POCT glucose (05/22/2018 12:49 PM CDT) [facility] GLUCOSE POC 148(H) 70 - 99 mg/dL 05/22/2018 1:04 PM CDT [facility] LAB ORDERS INTERFACE 05/22/2018 12:4 9 PM CDT Ember Han MD POCT ORDERABLES - DEVICE Fin al Result [facility] LAB ORDERS INTERFACE US * (ABNORMAL) POCT glucose (05/22/2018 6:05 AM CDT) [facility] GLUCOSE POC 245(H) 70 - 99 mg/dL 05/22/2018 6:12 AM CDT [facility] LAB ORDERS INTERFACE 05/22/2018 6:05 AM CDT Ember Han MD POCT ORDERABLES - DEVICE Fin al Result [facility] LAB ORDERS INTERFACE US * (ABNORMAL) HEMOGLOBIN, GLYCOSYLATED (05/22/2018 5:13 AM CDT) HGB A1C 8.3(H) 4.2 - 6.3 % 05/22/2018 6:10 AM CDT [facility] Comment: ADA GUIDELINES 2010 5.7 TO 6.4% INCREASED RISK OF DIABETES > OR = 6.5% CONSISTENT WITH DIABETES ESTIMATED AVG GLUCOSE 192 mg/dL 05/22/2018 6:10 AM CDT [facility] 05/22/2018 5:13 AM CDT Ember Han MD LABORATORY Final Result Performing Organization Address [place]/ZIP Co de Phone Number [facility] [address] [place] [id number], [place] [phone] * (ABNORMAL) BASIC METABOLIC PANEL (05/22/2018 5:13 AM CDT) GLUCOSE 262(H) 70 - 99 MG/DL 05/22/2018 6:11 AM CDT [facility] BUN 20(H) 7 - 18 MG/DL 05/22/2018 6:11 AM CDT [facility] CREATININE S/P/B 1.47(H) 0.7 - 1.3 MG/DL 05/22/2018 6:11 AM CDT [facility] SODIUM S/P/B 142 136 - 145 MMOL/L 05/22/2018 6:11 AM CDT [facility] POTASSIUM S/P/B 3.8 3.5 - 5.1 MMOL/L 05/22/2018 6:11 AM CDT [facility] CHLORIDE S/P/B 109(H) 100 - 108 MMOL/L 05/22/2018 6:11 AM CDT [facility] CO2 24.2 21 - 32 MMOL/L 05/22/2018 6:11 AM CDT [facility] CALCIUM S/P/B 7.8(L) 8.5 - 10.1 MG/DL 05/22/2018 6:11 AM CDT [facility] ANION GAP 12.6 8 - 20 MMOL/L 05/22/2018 6:11 AM CDT [facility] BUN CREATININE RATIO 13.6 6 - 26 05/22/2018 6:11 AM CDT [facility] EGFR NON-AFR. AMER. 57(L) >90 ML/MIN/1.7 3 M2 05/22/2018 6:11 AM CDT [facility] EGFR AFR. AMER. 66(L) >90 ML/MIN/1.7 3 M2 05/22/2018 6:11 AM CDT [facility] Comment: NOTE: eGFR is not calculated for patients <18 years of age. This is an estimated GFR (CKD EPI) and should not be used for calculating drug doses. 05/22/2018 5:13 AM CDT Ember Han MD LABORATORY Final Result [facility] [address] [place] [address], [place] [phone] * (ABNORMAL) CBC W/DIFF AUTOMATED (05/22/2018 5:13 AM CDT) WBC 8.8 4.5 - 11.0 x10'3/uL 05/22/2018 5:48 AM CDT [facility] RBC 4.14(L) 4.70 - 6.10 x10'6/uL 05/22/2018 5:48 AM CDT [facility] HGB 12.4(L) 14.0 - 18.0 G/DL 05/22/2018 5:48 AM CDT [facility] HCT 37.2(L) 43.0 - 54.0 % 05/22/2018 5:48 AM CDT [facility] MCV 89.9 80.0 - 94.0 FL 05/22/2018 5:48 AM CDT [facility] MCH 30.0 27.0 - 31.0 PG 05/22/2018 5:48 AM CDT [facility] MCHC 33.3 32.0 - 36.0 G/DL 05/22/2018 5:48 AM CDT [facility] RDW 13.8 11.5 - 14.5 % 05/22/2018 5:48 AM CDT [facility] PLT 179 130 - 400 x10'3/uL 05/22/2018 5:48 AM CDT [facility] MPV 11.5 9.3 - 12.2 FL 05/22/2018 5:48 AM CDT [facility] DIFFERENTIAL TYPE AUTOMATED DIFFERENTIAL 05/22/2018 5:48 AM CDT [facility] NEUTROPHILS % 73.0 % 05/22/2018 5:48 AM CDT [facility] LYMPHOCYTES % 16.6 % 05/22/2018 5:48 AM CDT [facility] MONOCYTES % 5.4 % 05/22/2018 5:48 AM CDT [facility] EOSINOPHILS 3.7 % 05/22/2018 5:48 AM CDT [facility] BASOPHILS 0.8 % 05/22/2018 5:48 AM CDT [facility] IMMATURE GRANS % 0.5(H) 0 % 05/22/20 18 5:48 AM CDT [facility] ABS. NEUTROPHILS TOTAL 6.40 1.80 - 7.70 x10'3/uL 05/22/2018 5:48 AM CDT [facility] ABS. LYMPHOCYTES 1.45 1.00 - 4.80 x10'3/uL 05/22/2018 5:48 AM CDT [facility] ABS. MONOCYTES 0.47 0.30 - 0.82 x10'3/uL 05/22/2018 5:48 AM CDT [facility] ABS. EOSINOPHILS 0.32 0.04 - 0.54 x10'3/uL 05/22/2018 5:48 AM CDT [facility] ABS. BASOPHILS 0.07 0.01 - 0.08 x10'3/uL 05/22/2018 5:48 AM CDT [facility] ABS. IMMATURE GRANULOCYTES 0.04(H) 0.00 - 0.03 x10'3/uL 05/22/2018 5:48 AM CDT [facility] 05/22/2018 5:13 AM CDT us Ember Han MD LABORATORY Final Result [facility] [address] [place] [address], [place] [phone] * TROPONIN, QUANT (05/22/2018 12:25 AM CDT) TROPONIN I <0.015 <0.045 ng/mL. 05/22/2018 1:04 AM CDT [facility] Comment: HIGH DOSES OF BIOTIN MAY INTERFERE WITH THIS TEST RESULT. CORRELATION TO CLINICAL HISTORY AND PRESENTATION RECOMMENDED. 05/22/2018 12:2 5 AM CDT us Ember Han MD LABORATORY Final Result Performing Organization Address [place] Co de Phone Number [facility] [address] [place] [address], * (ABNORMAL) POCT glucose (05/21/2018 8:24 PM CDT) GLUCOSE POC 165(H) 70 - 99 mg/dL 05/21/2018 8:26 PM CDT [facility] LAB ORDERS INTERFACE 05/21/2018 8:24 PM CDT Ember Han MD POCT ORDERABLES - DEVICE Fin al Result Performing Organization Address [place] Co de Phone Number [facility] LAB ORDERS INTERFACE US * TROPONIN, QUANT (05/21/2018 6:43 PM CDT) TROPONIN I <0.015 <0.045 ng/mL. 05/21/2018 7:41 PM CDT [facility] Comment: HIGH DOSES OF BIOTIN MAY INTERFERE WITH THIS TEST RESULT. CORRELATION TO CLINICAL HISTORY AND PRESENTATION RECOMMENDED. 05/21/2018 6:43 PM CDT Ember Han MD LABORATORY Final Result Performing Organization Address [place] Co de Phone Number [facility] [address] [place] [address], [place] [phone] * (ABNORMAL) POCT glucose (05/21/2018 6:17 PM CDT) GLUCOSE POC 113(H) 70 - 99 mg/dL 05/21/2018 6:19 PM CDT [facility] LAB ORDERS INTERFACE 05/21/2018 6:17 PM CDT Ember Han MD POCT ORDERABLES - DEVICE Fin al Result Performing Organization Address [place]/[facility]/ZIP Co de Phone Number [facility] LAB ORDERS INTERFACE US * TROPONIN, QUANT (05/21/2018 2:45 PM CDT) TROPONIN I <0.015 <0.045 ng/mL. 05/21/2018 3:20 PM CDT [facility] Comment: HIGH DOSES OF BIOTIN MAY INTERFERE WITH THIS TEST RESULT. CORRELATION TO CLINICAL HISTORY AND PRESENTATION RECOMMENDED. 05/21/2018 2:45 PM CDT us Steve Rockwell MD LABORATORY Final Result [facility] [address] [place] [address], [place] [phone] * XR CHEST PORTABLE (05/21/2018 1:02 PM [...] <0.015 <0.045 ng/mL. 05/21/2018 1:18 PM CDT [facility] Comment: HIGH DOSES OF BIOTIN MAY INTERFERE WITH THIS TEST RESULT. CORRELATION TO CLINICAL HISTORY AND PRESENTATION RECOMMENDED. 05/21/2018 12:3 4 PM CDT Steve Rockwell MD LABORATORY Final Result [facility] [address] [place] [address], [place] [phone] * (ABNORMAL) COMPREHENSIVE METABOLIC PANEL (05/21/2018 12:34 PM CDT) GLUCOSE 211(H) 70 - 99 MG/DL 05/21/2018 1:18 PM CDT [facility] BUN 27(H) 7 - 18 MG/DL 05/21/2018 1:18 PM CDT [facility] CREATININE S/P/B 1.59(H) 0.7 - 1.3 MG/DL 05/21/2018 1:18 PM CDT [facility] SODIUM S/P/B 139 136 - 145 MMOL/L 05/21/2018 1:18 PM CDT [facility] POTASSIUM S/P/B 3.8 3.5 - 5.1 MMOL/L 05/21/2018 1:18 PM CDT [facility] CHLORIDE S/P/B 105 100 - 108 MMOL/L 05/21/2018 1:18 PM CDT [facility] CO2 26.3 21 - 32 MMOL/L 05/21/2018 1:18 PM T [facility] CALCIUM S/P/B 8.1(L) 8.5 - 10.1 MG/DL 05/21/2018 1:18 PM T [facility] BILIRUBIN TOTAL S/P/B 0.6 0.2 - 1.2 MG/DL 05/21/2018 1:18 PM T [facility] TOTAL PROTEIN S/P/B 7.2 6.4 - 8.2 G/DL 05/21/2018 1:18 PM T [facility] ALBUMIN S/P/B 3.3(L) 3.4 - 5.0 G/DL 05/21/2018 1:18 PM T [facility] AST 18 15 - 37 U/L 05/21/2018 1:18 PM T [facility] ALT 22 16 - 60 U/L 05/21/2018 1:18 PM T [facility] ALKALINE PHOSPHATASE S/P/B 94 50 - 136 U/L 05/21/2018 1:18 PM T [facility] ANION GAP 11.5 8 - 20 MMOL/L 05/21/2018 1:18 PM [facility] BUN CREATININE RATIO 17.0 6 - 26 05/21/2018 1:18 PM T [facility] A/G RATIO 0.8(L) 1.0 - 2.0 RATIO 05/21/2018 1:18 PM T [facility] EGFR NON-AFR. AMER. 52(L) >90 ML/MIN/1.7 3 M2 05/21/2018 1:18 PM [facility] EGFR AFR. AMER. 60(L) >90 ML/MIN/1.7 3 M2 05/21/2018 1:18 PM T [facility] Comment: NOTE: eGFR is not calculated for patients <18 years of age. This is an estimated GFR (CKD EPI) and should not be used for calculating drug doses. 05/21/2018 12:3 4 PM CDT us Steve Rockwell MD LABORATORY Final Result [facility] [address] [place] [address], * (ABNORMAL) CBC W/DIFF AUTOMATED (05/21/2018 12:34 PM CDT) WBC 6.5 4.5 - 11.0 x10'3/uL 05/21/2018 12:59 PM CDT [facility] RBC 4.24(L) 4.70 - 6.10 x10'6/uL 05/21/2018 12:59 PM CDT [facility] HGB 12.5(L) 14.0 - 18.0 G/DL 05/21/2018 12:59 PM CDT [facility] HCT 37.9(L) 43.0 - 54.0 % 05/21/2018 12:59 PM CDT [facility] MCV 89.4 80.0 - 94.0 FL 05/21/2018 12:59 PM CDT [facility] MCH 29.5 27.0 - 31.0 PG 05/21/2018 12:59 PM CDT [facility] MCHC 33.0 32.0 - 36.0 G/DL 05/21/2018 12:59 PM CDT [facility] RDW 13.5 11.5 - 14.5 % 05/21/2018 12:59 PM CDT [facility] PLT 184 130 - 400 x10'3/uL 05/21/2018 12:59 PM CDT [facility] MPV 11.1 9.3 - 12.2 FL 05/21/2018 12:59 PM CDT [facility] DIFFERENTIAL TYPE AUTOMATED DIFFERENTIAL 05/21/2018 12:59 PM CDT [facility] NEUTROPHILS % 60.1 % 05/21/2018 12:59 PM CDT [facility] LYMPHOCYTES % 26.2 % 05/21/2018 12:59 PM CDT [facility] MONOCYTES % 7.2 % 05/21/2018 12:59 PM CDT [facility] EOSINOPHILS 5.1 % 05/21/2018 12:59 PM CDT [facility] BASOPHILS 0.9 % 05/21/2018 12:59 PM CDT [facility] IMMATURE GRANS % 0.5(H) 0 % 05/21/20 18 12:59 PM CDT [facility] ABS. NEUTROPHILS TOTAL 3.91 1.80 - 7.70 x10'3/uL 05/21/2018 12:59 PM CDT [facility] ABS. LYMPHOCYTES 1.70 1.00 - 4.80 x10'3/uL 05/21/2018 12:59 PM CDT [facility] ABS. MONOCYTES 0.47 0.30 - 0.82 x10'3/uL 05/21/2018 12:59 PM CDT [facility] ABS. EOSINOPHILS 0.33 0.04 - 0.54 x10'3/uL 05/21/2018 12:59 PM CDT [facility] ABS. BASOPHILS 0.06 0.01 - 0.08 x10'3/uL 05/21/2018 12:59 PM CDT [facility] ABS. IMMATURE GRANULOCYTES 0.03 0.00 - 0.03 x10'3/uL 05/21/2018 12:59 PM CDT [facility] 05/21/2018 12:3 4 PM CDT us Steve Rockwell MD LABORATORY Final Result [facility] [address] [place] [address], * ECG 12-Lead (05/21/2018 12:29 PM CDT) 05/21/2018 12:2 9 PM CDT Narrative [facility] RADIOLOGY - 05/22/2018 3:00 PM CDT ?[facility] [address] [facility] [place] ? Test Date: ?2018-05-21 Pat Name: ? RUBIA KOWALSKI ?Department: ?? 41 ? Room: ? A432 Gender: ? Male ? Director Digital Analytics: ?? DDB : ?1975 ? Requested By: STEVE ROCKWELL Order Number: [id number] ? Dougie ROGERS: ?? Steve Green ? Measurements Intervals ?Edwards ? Rate: ? 74 ? P: ?20 ND: ? 132 ?QRS: ?-14 QRSD: ? 93 ? T: ?45 QT: ? 376 ? QTc: ?419 ? Interpretive Statements SINUS RHYTHM SEPTAL MYOCARDIAL INFARCTION, OF INDETERMINATE AGE Compared to ECG 09/24/2015 10:48:30 Myocardial infarct finding now present No ischemic changes Steve Rockwell M.D. CRITICAL ALERT ISSUED ON 05-21-2018 12:32:23 Procedure Note Steve Green MD - 05/22/2018 [facility] [facility] Test Date: 2018-05-21 Pat Name: RUBIA KOWALSKI Department: 41 Room: A432 Gender: Male Director Digital Analytics: ALEK : 1975 Requested By: STEVE ROCKWELL Order Number: [id number] Reading MD: Steve Green Measurements Intervals Edwards Rate: 74 P: 20 ND: 132 QRS: -14 QRSD: 93 T: 45 QT: 376 QTc: 419 Interpretive Statements SINUS RHYTHM SEPTAL MYOCARDIAL INFARCTION, OF INDETERMINATE AGE Compared to ECG 09/24/2015 10:48:30 Myocardial infarct finding now present No ischemic changes Steve Rockwell M.D. CRITICAL ALERT ISSUED ON 05-21-2018 12:32:23 us Steve Rockwell MD ECG ORDERABLES Final Result [facility] RADIOLOGY documented in this encounter Visit Diagnoses [...] Given 05/21/2018 10:55 PM CDT 5,000 Units amvgfkktd-rieqnkxf-fybdbydu one ([place] [place] [employer]) [id number] mg/30mL suspension 10 mL, Oral, Every 4 [...] Lory Hirsch RN) 905 (Given - Provider: Kenyetta Self RN) insulin lispro (HUMALOG) injection 1 [...] at 1333, Until Sun05/22/18 at 1752, Post-Op uypgsfksb-zdygedtu-bwbsegcxzzh ([place] [place] [employer]) [id number] mg/30mL suspension 10 mL, Oral, Every 4 [...] (COMPLETED) documented in this encounter Care Teams Dispatch Clerk Relationship Specialty Start Date End Date Dennis Crump MD PCP - General INTERNAL MEDICINE 02/28/17 10/23/23 Joann Marquez, ANP- [address] [facility] [address] [place] [phone] [place] [employer] Clerk NURSE PRACTITIONER 02/28/17 documented as of this encounter
--- OUTSIDE RECORDS SUMMARY | 2024-10-26 10:08 | XMS_ITS | Encounter Summary ---
Author Organization [facility] Address [address] [place] [address]. [place], [place] [address] [place] [address] Care Team Providers Care Meal Temperer Name Role Phone Dennis Doran MD Primary Care Provider Joann Marquez [facility] Unavailable [phone] Encounter Details Date Type Department Care Team (Late st Contact Info) Description 02/24/2014 Abstract [facility] Architect Marine [address] [place] [address] Nate Sutton MD [address] [facility] [address] [place] [address] Social History Tobacco Use Types Packs/Day [...] AM CDT) 02/24/2014 9:11 AM CDT Narrative [facility] - 02/24/2014 11:35 AM CDT ? [facility] ? [address] [place], [place] ??[address] ? Test Date: ?2014-02-24 Pat Name: ? TANK KOWALSKI ?Department: ?? 1 ? Room: ? Gender: ? M ?Technical Clerk: ?? : ?1975 ? Requested By: NATE SUTTON Order Number: [id number] ? Reading MD: ?? [facility] ? Measurements Intervals ?[place] ? Rate: ? 69 ? P: ?59 SC: ? 128 ?QRS: ?-31 QRSD: ? 92 ? T: ?8 QT: ? 389 ? QTc: ?418 ? Interpretive Statements SINUS RHYTHM MARKED LEFT AXIS DEVIATION Cannot rule prior anterior infarct Procedure Note , Dionicio Mabry MD - 06/18/2019 [facility] [address] [place] [address] Test Date: 2014-02-24 Pat Name: TANK KOWALSKI Department: 1 Room: Gender: M Technical Clerk: : 1975 Requested By: NATE SUTTON Order Number: [id number] Reading MD: Patricio [place] Measurements Intervals [place] Rate: 69 P: 59 SC: 128 QRS: -31 QRSD: 92 T: 8 QT: 389 QTc: 418 Interpretive Statements SINUS RHYTHM MARKED LEFT AXIS DEVIATION Cannot rule prior anterior infarct us Generic Clotilde Pickard MD ECG ORDERABLES Final R esult Performing Organization Address City/State/[facility] Co de Phone Number [facility] documented in this encounter Visit Diagnoses Diagnosis Coronary atherosclerosis of [place] coronary artery documented in this encounter Care Teams Meal Temperer Relationship Specialty Start Date End Date Dennis Doran MD PCP - General INTERNAL MEDICINE 02/28/17 10/23/23 Joann Marquez ANP- [address] [facility] [address] [phone] [place] Die Cutter NURSE PRACTITIONER 02/28/17 documented as of this encounter
--- OUTSIDE RECORDS SUMMARY | 2024-10-26 10:08 | XMS_ITS | Encounter Summary ---
Author Organization [facility] Address [address] [place] [address]. 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 Not on file Not on file Not on file Not on file Not on file Not on file Not on file documented as of this encounter Plan of Treatment Not on file documented as of this encounter Visit Diagnoses Diagnosis Hematuria Hematuria, unspecified documented in this encounter Care Teams Funeral Sales Manager Relationship Specialty Start Date End Date Dennis Doran MD PCP - General INTERNAL MEDICINE 02/28/17 10/23/23 Joann Marquez, [facility]- [address] [facility] [address] [place] [phone] [employer] Training Mgr NURSE PRACTITIONER 02/28/17 documented as of this encounter
--- OUTSIDE RECORDS SUMMARY | 2024-10-26 10:08 | XMS_ITS | Encounter Summary ---
Author Organization [facility] Address [address] [place] [address]. [place], [place] [address] [place] [address] Care Team Providers Care Toe Former Stitchdowns Name Role Phone Unavailable Primary Care Provider Unavailabl e Encounter Details Date Type Department Care Team (Late st Contact Info) Description 02/24/2014 Abstract [facility] [address] [place] [address] , Dionicio Mabry MD Social History Tobacco [...]
--- OUTSIDE RECORDS SUMMARY | 2024-10-26 10:08 | XMS_ITS | Encounter Summary ---
Author Organization [facility] Address [address] [place] [address]. [place], [place] [address] [place] [address] Care Team Providers Care Motorcycle Repairer Name Role Phone Unavailable Primary Care Provider Unavailabl e Encounter Details Date Type Department Care Team (Late st Contact Info) Description 02/13/2014 [facility] [address] [place] [address] , Dionicio Mabry MD Social History Tobacco [...]
--- OUTSIDE RECORDS SUMMARY | 2024-10-26 10:08 | XMS_ITS | Encounter Summary ---
Author Organization [facility] Address [address] [place] [address]. [place], [place] [address] [place] [address] Care Team Providers Care Handle Rounder Operator Name Role Phone Unavailable Primary Care Provider Unavailabl e Encounter Details Date Type Department Care Team (Late st Contact Info) Description 09/09/2015 Abstract [facility] [address] [place] [address] , Dionicio Mabry MD Social [...] Comments Blood Pressure 132/80 09/09/2015 10:58 AM ASSEMBLER FOR PULLER OVER MACHINE Pulse 74 09/09/2015 10:57 AM ASSEMBLER FOR PULLER OVER MACHINE Temperature - - Respiratory Rate 14 09/09/2015 10:57 AM ASSEMBLER FOR PULLER OVER MACHINE Oxygen Saturation - - Inhaled Oxygen Concentration - - Weight 87.5 kg (193 lb) 09/09/2015 10:57 AM ASSEMBLER FOR PULLER OVER MACHINE Height 180.3 cm (5' 11 ) 09/09/2015 10:57 AM ASSEMBLER FOR PULLER OVER MACHINE Body Mass Index 26.92 09/09/2015 10:57 AM ASSEMBLER FOR PULLER OVER MACHINE documented in this encounter Plan of Treatment Not on file documented as of this encounter Visit Diagnoses Not on filedocumented in this encounter
--- OUTSIDE RECORDS SUMMARY | 2024-10-26 10:08 | XMS_ITS | Encounter Summary ---
Author Organization [facility] Address [address] [place] [address]. [place] [address] [place] [address] Care Team Providers Care Steam Bone Press Tender Name Role Phone Dennis Doran MD Primary Care Provider [phone] Joann Marquez-ERICA Unavailable Reason for Visit * Reason Onset Date Comments Medication 05/14/2017 Encounter Details Date Type Department Care Team ([facility] st Contact Info) Description 05/14/2017 Telephone [facility] [address] [place] [address] Joann Marquez, MARIO [address] [facility] [address] [place] [address] Medication Social History Tobacco Use [...] 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 Insurance will cover Viagra or Cialis. Pharmacy may be reached at [phone]. documented in this encounter Plan of Treatment Not on file documented as of this encounter Visit Diagnoses Not on filedocumented in this encounter Care Teams Steam Bone Press Tender Relationship Specialty Start Date End Date Dennis Doran MD PCP - General INTERNAL MEDICINE 02/28/17 10/23/23 Joann Marquez ANP-BC [address] [place] [address] [phone] [place] Agronomy Research Manager NURSE PRACTITIONER 02/28/17 documented as of this encounter
--- OUTSIDE RECORDS SUMMARY | 2024-10-26 10:08 | XMS_ITS | Encounter Summary ---
Author Organization [facility] Address [facility] 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
--- OUTSIDE RECORDS SUMMARY | 2024-10-26 10:08 | XMS_ITS | Encounter Summary ---
Author Organization [facility] Address [address] [place] [address]. [place] [address] [place] [address] Care Team Providers Care Conveyor Line Bakery Worker Name Role Phone Dennis Crump MD Primary Care Provider [phone] Joann Marquez-ERICA Unavailable [phone] Reason for Visit * Reason Comments Follow Up Encounter Details Date Type Department Care Team ([facility] st Contact Info) Description 05/04/2017 9:15 AM CDT Office Visit [facility] [address] [place] [address] Joann Marquez, AURELIANO-BC [address] 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 I did give him instructions on how [...] heart healthy diet. [facility]. 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 Diagnoses/Impression: 1. Coronary artery disease involving [place] coronary artery of [place]ai heart without angina pectoris 2. Hyperlipidemia, unspecified hyperlipidemia type 3. Essential hypertension [place] Documentation Completed: Coronary Artery Disease PCP: DENNIS CRUMP documented in this encounter Plan of Treatment Not on file documented as of this encounter Visit Diagnoses Diagnosis Coronary artery disease involving [place] coronary artery of [place]ai heart without angina pectoris- Primary Hyperlipidemia, unspecified hyperlipidemia type Essential hypertension Unspecified essential hypertension documented in this encounter Care Teams Conveyor Line Bakery Worker Relationship Specialty Start Date End Date Dennis Crump MD PCP - General INTERNAL MEDICINE 02/28/17 10/23/23 Joann Marquez ANP-BC [address] [phone] [place] Service Rig Operator NURSE PRACTITIONER 02/28/17 documented as of this encounter
--- OUTSIDE RECORDS SUMMARY | 2024-10-26 10:08 | XMS_ITS | Encounter Summary ---
Author Organization [facility] Address [address] [place] [address]. [place], [place] [address] [place] [address] Care Team Providers Care Gerentological Physiotherapist Name Role Phone Unavailable Primary Care Provider Unavailabl e Encounter Details Date Type Department Care Team (Late st Contact Info) Description 09/09/2015 [facility] [address] [place] [address] , Dionicio Mabry MD Social History Tobacco [...]
--- OUTSIDE RECORDS SUMMARY | 2024-10-26 10:08 | XMS_ITS | Encounter Summary ---
Author Organization [facility] Address [address] [place] [address]. [place], [place] [address] [place] [address] Care Team Providers Care Bead Wrapper Name Role Phone Unavailable Primary Care Provider Unavailabl e Encounter Details Date Type Department Care Team (Late st Contact Info) Description 02/16/2014 [facility] [address] [place] [address] , Dionicio Mabry MD Social History Tobacco [...]
--- OUTSIDE RECORDS SUMMARY | 2024-10-26 10:08 | XMS_ITS | Encounter Summary ---
Author Organization [facility] Address [address] [place] [address]. [place] [address] [place] [address] Care Team Providers Care Case Advocate Name Role Phone Dennis Doran MD Primary Care Provider [phone] Joann Marquez-ERICA Unavailable Reason for Visit * Reason Onset Date Comments Refill Request 10/08/2019 Brilinta Encounter Details Date Type Department Care Team ([facility] st Contact Info) Description 10/08/2019 Telephone [facility] [address] [place] [address] Joann Marquez, AURELIANO-BC [address] [facility] [address] [place] [address] Refill Request (Brilinta ) Social [...] 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 R OPERATOR * Katherine Stauffer - 10/08/2019 11:54 AM CST Patient called requesting a 30 day refill of his Brilinta until he can get into the office for a f/up visit. He states he is almost out. He uses [facility] in [place]. Appt scheduled 10/17/19 at 9:45 am with Joann Marquez NP at [facility]. Patient verbalized understanding. Letter and med list mailed to patient. R OPERATOR documented in this encounter Plan of Treatment Not on file documented as of this encounter Visit Diagnoses Not on filedocumented in this encounter Care Teams Case Advocate Relationship Specialty Start Date End Date Dennis Doran MD PCP - General INTERNAL MEDICINE 02/28/17 10/23/23 Joann Marquez, ANP- [address] [facility] [address] [phone] [place] Gathering Machine Feeder NURSE PRACTITIONER 02/28/17 documented as of this encounter
--- OUTSIDE RECORDS SUMMARY | 2024-10-26 10:08 | XMS_ITS | Encounter Summary ---
Author Organization [facility] Address [address] [place] [address]. [place], [place] [address] [place] [address] Care Team Providers Care Financial Services Specialist Name Role Phone Unavailable Primary Care Provider Unavailabl e Encounter Details Date Type Department Care Team (Late st Contact Info) Description 11/02/2014 Abstract [facility] AT [address] [address] , Dionicio Mabry MD Social History Tobacco [...]
--- OUTSIDE RECORDS SUMMARY | 2024-10-26 10:08 | XMS_ITS | Encounter Summary ---
Author Organization [facility] Address [address] [place] [address]. [place], [place] [address] [place] [address] Care Team Providers Care Lamp Shade Maker Name Role Phone Dennis Doran MD Primary Care Provider [phone] Joann Marquez [facility] Unavailable [phone] Encounter Details Date Type Department Care Team (Late st Contact Info) Description 09/24/2015 Abstract [place] Carbon Grinder [address] [place] [address] Nate Sutton MD 602 [facility] [address] [place] [address] Social History Tobacco Use Types Packs/Day [...] Comments ECG 12-LEAD Routine 09/24/2015 10:48 AM UPWARD BOUND DIRECTOR documented in this encounter Results * ECG 12 lead (09/24/2015 10:48 AM UPWARD BOUND DIRECTOR) 09/24/2015 10:4 8 AM UPWARD BOUND DIRECTOR Narrative [facility] RAD - 09/24/2015 11:46 AM UPWARD BOUND DIRECTOR ? [facility] ? [address] [place], [place] ??[address] ? Test Date: ?2015-09-24 Pat Name: ? TANK KOWALSKI ?Department: ?? 1 ? Room: ? Gender: ? M ?Machine Striper: ?? gs : ?1975 ? Requested By: NATE SUTTON Order Number: [id number] ? Reading MD: ?? Yamel Al-Dadah ? Measurements Intervals ?[place] ? Rate: ? 66 ? P: ?55 [place]: ? 145 ?QRS: ?-3 QRSD: ? 97 ? T: ?43 QT: ? 390 ? QTc: ?409 ? Interpretive Statements SINUS RHYTHM RD BOUND DIRECTOR Procedure Note , Dionicio Mabry MD - 06/17/2019 [facility] [address] [place] [address] Test Date: 2015-09-24 Pat Name: TANK KOWALSKI Department: 1 Room: Gender: Machine Striper: : 1975 Requested By: NATE SUTTON Order Number: [id number] Reading MD: Yamel Pop Measurements Intervals [place] Rate: 66 P: 55 VA: 145 QRS: -3 QRSD: 97 T: 43 QT: 390 QTc: 409 Interpretive Statements SINUS RHYTHM RD BOUND DIRECTOR us Generic Clotilde Pickard MD ECG ORDERABLES Final R esult [facility] documented in this encounter Visit Diagnoses Diagnosis Atherosclerotic heart disease of [place] coronary artery with other forms of angina pectoris (CMS/HCC) documented in this encounter Care Teams Lamp Shade Maker Relationship Specialty Start Date End Date Dennis Doran MD PCP - General INTERNAL MEDICINE 02/28/17 10/23/23 Joann Marquez ANP- [address] [facility] [address] [place] [phone] [place] Prototype Carpenter NURSE PRACTITIONER 02/28/17 documented as of this encounter
--- OUTSIDE RECORDS SUMMARY | 2024-10-26 10:08 | XMS_ITS | Encounter Summary ---
Author Organization [facility] Address [address] [place] [address]. [place], [place] [address] [place] [address] Care Team Providers Care Director Of Food And Beverage Services Name Role Phone Unavailable Primary Care Provider Unavailabl e Encounter Details Date Type Department Care Team (Late st Contact Info) Description 09/22/2015 Abstract [facility] [address] [place] [address] , Dionicio Mabry MD Social History Tobacco [...]
--- OUTSIDE RECORDS SUMMARY | 2024-10-26 10:08 | XMS_ITS | Encounter Summary ---
Author Organization [facility] Address [address] [place] [address]. [place], [place] [address] [place] [address] Care Team Providers Care Hardwood Floor Layer Name Role Phone Unavailable Primary Care Provider Unavailabl e Encounter Details Date Type Department Care Team (Late st Contact Info) Description 09/15/2014 Abstract [facility] [address] [place] [address] , Dionicio Mabry MD Social History Tobacco [...]
--- OUTSIDE RECORDS SUMMARY | 2024-10-26 10:08 | XMS_ITS | Encounter Summary ---
Author Organization [facility] Address [address] [place] [address]. [place], [place] [address] [place] [address] Care Team Providers Care Pharmacy Coordinator Name Role Phone Unavailable Primary Care Provider Unavailabl e Encounter Details Date Type Department Care Team (Late st Contact Info) Description 09/24/2015 [facility] [address] [place] [address] , Dionicio Mabry MD Social History Tobacco [...]
--- OUTSIDE RECORDS SUMMARY | 2024-10-26 10:08 | XMS_ITS | Encounter Summary ---
Author Organization [facility] Address [address] [place] [address]. [place], [place] [address] [place] [address] Care Team Providers Care Marriage Therapist Name Role Phone Unavailable Primary Care Provider Unavailabl e Encounter Details Date Type Department Care Team (Late st Contact Info) Description 09/24/2015 Abstract [facility] [address] [place] [address] , Generic MD Clotilde Social [...] Diagnosis Comments CBC,CONVERSION Routine 09/24/2015 10:15 AM MULTI SKILLED OPERATOR THYROID PANEL Routine 09/24/2015 10:15 AM MULTI SKILLED OPERATOR COMPREHENSIVE METABOLIC PANEL Routine 09/24/2015 10:15 AM MULTI SKILLED OPERATOR documented in this encounter Results * (ABNORMAL) COMPREHENSIVE METABOLIC PANEL (09/24/2015 10:15 AM MULTI SKILLED OPERATOR) SODIUM S/P/B 139 135 - 147 mmol/L [...] TO EPIC CONVERSION 09/24/2015 10:1 5 AM MULTI SKILLED OPERATOR 09/24/2015 10:15 AM MULTI SKILLED OPERATOR Narrative [facility] TO EPIC CONVERSION - 09/24/2015 10:45 AM MULTI SKILLED OPERATOR Reviewed by ARGENTINA Robledo ??4 2014 ??2:06:40:000PM us Generic Conversion Md [facility] Final R esult [facility] TO EPIC CONVERSION * (ABNORMAL) CBC,CONVERSION (09/24/2015 10:15 AM MULTI SKILLED OPERATOR) WBC 7.57 4.00 - 10.80 K/cumm [facility] [...] TO EPIC CONVERSION 09/24/2015 10:1 5 AM MULTI SKILLED OPERATOR 09/24/2015 10:15 AM MULTI SKILLED OPERATOR Narrative [facility] TO EPIC CONVERSION - 09/24/2015 10:25 AM MULTI SKILLED OPERATOR Reviewed by ARGENTINA Robledo ??4 2014 ??2:06:48:000PM us Generic Conversion Md [facility] Final R esult [facility] TO EPIC CONVERSION * THYROID PANEL (09/24/2015 10:15 AM MULTI SKILLED OPERATOR) TSH ULTRASENSITIVE 1.90 0.35 - 4.94 mcIU/mL [facility] TO EPIC CONVERSION 09/24/2015 10:1 5 AM MULTI SKILLED OPERATOR 09/24/2015 10:15 AM MULTI SKILLED OPERATOR Narrative [facility] TO EPIC CONVERSION - 09/25/2015 5:41 AM MULTI SKILLED OPERATOR Reviewed by ARGENTINA Robledo ??7 2014 ??8:55:06:000AM us Generic Conversion Md [facility] Final R esult [facility] TO EPIC CONVERSION documented in this encounter Visit Diagnoses Not on filedocumented in this encounter
--- OUTSIDE RECORDS SUMMARY | 2024-10-26 10:08 | XMS_ITS | Encounter Summary ---
Author Organization [facility] Address [address] [place] [address]. [place], [place] [address] [place] [address] Care Team Providers Care Tube Builder Name Role Phone Unavailable Primary Care Provider Unavailabl e Encounter Details Date Type Department Care Team (Late st Contact Info) Description 09/27/2015 [facility] [address] [place] [address] , Dionicio Mabry MD Social History Tobacco [...]
--- OUTSIDE RECORDS SUMMARY | 2024-10-26 10:08 | XMS_ITS | Encounter Summary ---
Author Organization [facility] Address [address] [place] [address]. [place], [place] [address] [place] [address] Care Team Providers Care Financial Planning Analyst Name Role Phone Unavailable Primary Care Provider Unavailabl e Encounter Details Date Type Department Care Team (Late st Contact Info) Description 02/16/2014 Abstract [facility] [address] [place] [address] , Dionicio Mabry MD Social History Tobacco [...]
--- OUTSIDE RECORDS SUMMARY | 2024-10-26 10:08 | XMS_ITS | Encounter Summary ---
Author Organization [facility] Address [address] [place] [address]. 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
--- OUTSIDE RECORDS SUMMARY | 2024-10-26 10:08 | XMS_ITS | Encounter Summary ---
Author Organization [facility] Address [address] [place] [address]. [place], [place] [address] [place] [address] Care Team Providers Care Combiner Name Role Phone Unavailable Primary Care Provider Unavailabl e Encounter Details Date Type Department Care Team (Late st Contact Info) Description 09/15/2014 [facility] AT [facility] [address] [place] [address] , Dionicio Mabry MD Social History Tobacco [...]
--- OUTSIDE RECORDS SUMMARY | 2024-10-26 10:09 | XMS_ITS | Encounter Summary ---
Author Organization [facility] Address [address] [place] [address]. [place], [place] [address] [place] [address] Care Team Providers Care Chip Mixer Name Role Phone Dennis Doran MD Primary Care Provider [phone] Joann Marquez-BC Unavailable [phone] Encounter Details Date Type Department Care Team (Late st Contact Info) Description 06/04/[address] [facility] CONVERSION [address] [place] [address] Denisha Hansen PA [address] [place] [address] Social History Tobacco Use Types Packs/Day Years [...] on filedocumented in this encounter Care Teams Chip Mixer Relationship Specialty Start Date End Date Dennis Doran MD PCP - General INTERNAL MEDICINE 02/28/17 10/23/23 Joann Marquez, ANP-BC [address] [facility] 4P57 [place] [address] [place] Print Cutter NURSE PRACTITIONER 02/28/17 documented as of this encounter
--- OUTSIDE RECORDS SUMMARY | 2024-10-26 10:09 | XMS_ITS | Encounter Summary ---
Author Organization [facility] Address [address] [place] [address]. [place], [place] [address] [place] [address] Care Team Providers Care Control Systems Eng Name Role Phone Unavailable Primary Care Provider Unavailabl e Encounter Details Date Type Department Care Team (Late st Contact Info) Description 02/11/2014 [facility] [address] [place] [address] , Dionicio Mabry MD Social History Tobacco [...]
--- OUTSIDE RECORDS SUMMARY | 2024-10-26 10:09 | XMS_ITS | Encounter Summary ---
Author Organization [facility] Address [address] [place] [address]. [place], [place] [address] [place] [address] Care Team Providers Care Entry Level Account Representative Name Role Phone Unavailable Primary Care Provider Unavailabl e Encounter Details Date Type Department Care Team (Late st Contact Info) Description 01/28/2014 Abstract [facility] AT [facility] [address] [place] [address] , Generic Conversion, Social History [...]
--- OUTSIDE RECORDS SUMMARY | 2024-10-26 10:09 | XMS_ITS | Encounter Summary ---
Author Organization [facility] Address [facility] [place] [address] [place] [address] Care Team Providers Care Rand Cementer Name Role Phone Dennis Doran MD Primary Care Provider [phone] Joann Marquez Unavailable [phone] Encounter Details Date Type Department Care Team (Late st Contact Info) Description 01/27/2014 Abstract [facility] Card[facility] Services [address] [place] [address] Dennsi Doran MD [address] [place] [address] Social History Tobacco Use Types Packs/Day Years [...] breath documented in this encounter Care Teams Rand Cementer Relationship Specialty Start Date End Date Dennis Doran MD PCP - General INTERNAL MEDICINE 02/28/17 10/23/23 Joann Marquez ANP-BC [address] [facility] [address] [place] [address] [place] Supervisor Coffee NURSE PRACTITIONER 02/28/17 documented as of this encounter
--- OUTSIDE RECORDS SUMMARY | 2024-10-26 10:09 | XMS_ITS | Encounter Summary ---
Author Organization [facility] Address [facility]6 [facility]. [place], [place] [address] [place] [address] Care Team Providers Care Stagecraft Professor Name Role Phone Dennis Doran MD Primary Care Provider [phone] Joann Marquez-BC Unavailable [phone] Encounter Details Date Type Department Care Team (Late st Contact Info) Description 02/11/2014 Abstract [facility] [address] [place] [address] Dieter Arechiga MD [address] [address] Social History Tobacco Use Types [...] HHS/HCC) documented in this encounter Care Teams Stagecraft Professor Relationship Specialty Start Date End Date Dennis Doran MD PCP - General INTERNAL MEDICINE 02/28/17 10/23/23 Joann Marquez, AURELIANO-BC [address] [facility] 4P57 [place] [address] [place] Supervisor Beam Department NURSE PRACTITIONER 02/28/17 documented as of this encounter
--- OUTSIDE RECORDS SUMMARY | 2024-10-26 10:09 | XMS_ITS | Encounter Summary ---
Author Organization [facility] Address [address] [place] [address]. [place], [place] [address] [place] [address] Care Team Providers Care Rug Drying Machine Operator Name Role Phone Dennis Doran MD Primary Care Provider [phone] Joann Marquez-BC Unavailable [phone] Encounter Details Date Type Department Care Team (Late st Contact Info) Description 06/07/2010 Abstract [facility] CONVERSION [address] [place] [address] Denisha Hansen PA 12[address] [place] [address] Social History Tobacco Use Types Packs/Day Years [...] on filedocumented in this encounter Care Teams Rug Drying Machine Operator Relationship Specialty Start Date End Date Dennis Doran MD PCP - General INTERNAL MEDICINE 02/28/17 10/23/23 Joann Maruqez ANP-BC [address] [facility] 4P57 [place] [address] [place] Test Conductor NURSE PRACTITIONER 02/28/17 documented as of this encounter
--- OUTSIDE RECORDS SUMMARY | 2024-10-26 10:09 | XMS_ITS | Encounter Summary ---
Author Organization [facility] Address [address] [place] [address]. [place], [place] [address] [place] [address] Care Team Providers Care Commissioner Of Conciliation Name Role Phone Dennis Doran MD Primary Care Provider [phone] Joann Marquez-BC Unavailable [phone] Encounter Details Date Type Department Care Team (Late st Contact Info) Description 02/24/2010 Abstract [facility] CONVERSION [address] [place] [address] Denisha Hansen PA 12[address] [place] [address] Social History Tobacco Use Types Packs/Day Years [...] on filedocumented in this encounter Care Teams Commissioner Of Conciliation Relationship Specialty Start Date End Date Dennis Doran MD PCP - General INTERNAL MEDICINE 02/28/17 10/23/23 Joann Marquez, ANP-BC [address] [facility] 4P57 [place] [address] [place] Auto Service Dispatcher NURSE PRACTITIONER 02/28/17 documented as of this encounter
--- OUTSIDE RECORDS SUMMARY | 2024-10-26 10:09 | XMS_ITS | Encounter Summary ---
Author Organization [facility] Address [address] [place] [address]. [place], [place] [address] [place] [address] Care Team Providers Care Correspondence Specialist Name Role Phone Dennis Doran MD Primary Care Provider [phone] Joann Marquez-BC Unavailable [phone] Encounter Details Date Type Department Care Team (Late st Contact Info) Description 06/22/2009 Abstract [facility] CONVERSION [address] [place] [address] Elsi Kerns, DO [address] [place] [address] Social History Tobacco Use Types Packs/Day [...] on filedocumented in this encounter Care Teams Correspondence Specialist Relationship Specialty Start Date End Date Dennis Doran MD PCP - General INTERNAL MEDICINE 02/28/17 10/23/23 Joann Marquez ANP-BC [address] [facility] [address] [place] [address] Ephraim Electric Arc Welder NURSE PRACTITIONER 02/28/17 documented as of this encounter
--- OUTSIDE RECORDS SUMMARY | 2024-10-26 10:09 | XMS_ITS | Encounter Summary ---
Author Organization [facility] Address [facility], [facility]6 [facility]. [place], [place] [address] [place] [address] Care Team Providers Care Machine Pan Greaser Name Role Phone Dennis Doran MD Primary Care Provider [phone] Joann Marquez-BC Unavailable [phone] Encounter Details Date Type Department Care Team (Late st Contact Info) Description 09/29/2008 Abstract [facility] CONVERSION [address] [place] [address] Elsi Kerns, DO [address] [place] [address] Social History Tobacco Use Types Packs/Day [...] filedocumented in this encounter Care Teams Machine Pan Greaser Relationship Specialty Start Date End Date Dennis Doran MD PCP - General INTERNAL MEDICINE 02/28/17 10/23/23 Joann Marquez ANP-BC [address] [facility] 4P57 [place] [address] [place] Sole Stapler Welt NURSE PRACTITIONER 02/28/17 documented as of this encounter
--- OUTSIDE RECORDS SUMMARY | 2024-10-26 10:09 | XMS_ITS | Encounter Summary ---
Author Organization [facility] Address [address] [place] [address]. [place], [place] [address] [place] [address] Care Team Providers Care Steam Conditioning Operator Name Role Phone Unavailable Primary Care Provider Unavailabl e Encounter Details Date Type Department Care Team (Late st Contact Info) Description 02/13/2014 Abstract [facility] [address] [place] [address] , Dionicio Mabry MD Social History Tobacco [...]
--- OUTSIDE RECORDS SUMMARY | 2024-10-26 10:09 | XMS_ITS | Encounter Summary ---
Author Organization [facility] Address [address] [place] [address]. [place], [place] [address] [place] [address] Care Team Providers Care Trench Pipe Layer Helper Name Role Phone Dennis Doran MD Primary Care Provider Joann Marquez-BC Unavailable [phone] Encounter Details Date Type Department Care Team (Late st Contact Info) Description 03/23/2009 Abstract [facility] CONVERSION [address] [place], [place] [address] Saleem Rosas MD Social History Tobacco Use [...] on filedocumented in this encounter Care Teams Trench Pipe Layer Helper Relationship Specialty Start Date End Date Dennis Doran MD PCP - General INTERNAL MEDICINE 02/28/17 10/23/23 Joann Marquez, ANP-BC [address] [facility] 4P57 [place] [address] [place] Refinery Process Engineer NURSE PRACTITIONER 02/28/17 documented as of this encounter
--- OUTSIDE RECORDS SUMMARY | 2024-10-26 10:09 | XMS_ITS | Encounter Summary ---
Author Organization [facility] Address [address] [place] [address]. [place], [place] [address] [place] [address] Care Team Providers Care Junction Maker Name Role Phone Unavailable Primary Care Provider Unavailabl e Encounter Details Date Type Department Care Team (Late st Contact Info) Description 02/11/2014 Abstract [facility] [address] [place] [address] , Dionicio Mabry MD Social History Tobacco [...]
--- OUTSIDE RECORDS SUMMARY | 2024-10-26 10:09 | XMS_ITS | Encounter Summary ---
Author Organization [facility] Address [facility]6 [facility]. [address] Care Team Providers Care Wood Experimental Mechanic Name Role Phone Dennis Doran MD Primary Care Provider [phone] Joann Marquez Unavailable [phone] Encounter Details Date Type Department Care Team (Late st Contact Info) Description 08/18/2012 Abstract [facility] [address] [place] [address] Barry Diez MD [address] [address] Social History Tobacco Use Types [...] giddiness documented in this encounter Care Teams Wood Experimental Mechanic Relationship Specialty Start Date End Date Dennis Doran MD PCP - General INTERNAL MEDICINE 02/28/17 10/23/23 Joann Marquez ANP-BC [address] [facility] 4P57 [place] [address] [place] Hammerer Tab NURSE PRACTITIONER 02/28/17 documented as of this encounter
--- OUTSIDE RECORDS SUMMARY | 2024-10-26 10:09 | XMS_ITS | Encounter Summary ---
Author Organization [facility] Address [address] [place] [address]. [place] [address] [place] [address] Care Team Providers Care Vp Revenue Cycle Name Role Phone Dennis Doran MD Primary Care Provider [phone] Joann Marquez-ERICA Unavailable [phone] Encounter Details Date Type Department Care Team (Late st Contact Info) Description 03/18/2013 Abstract [facility] Diagnostic Imaging [address] [place] [address] Ho Bangura, FULFILLMENT COORDINATOR [address], [place] [address] Social History Tobacco Use Types [...] site documented in this encounter Care Teams Vp Revenue Cycle Relationship Specialty Start Date End Date Dennis Doran MD PCP - General INTERNAL MEDICINE 02/28/17 10/23/23 Joann Marquez ANP-BC [address] [facility] [address] [place] [address] [place] Personal Secretary NURSE PRACTITIONER 02/28/17 documented as of this encounter
--- OUTSIDE RECORDS SUMMARY | 2024-10-26 10:09 | XMS_ITS | Encounter Summary ---
Author Organization [facility] Address [address] [place] [address]. [place], [place] [address] [place] [address] Care Team Providers Care Radio Frequency Engineer Name Role Phone Dennis Doran MD Primary Care Provider [phone] Joann Marquez-BC Unavailable [phone] Encounter Details Date Type Department Care Team (Late st Contact Info) Description 06/03/2010 Abstract [facility] CONVERSION [address] [place] [address] Denisha Hansen PA 1212 [place] [address] Social History Tobacco Use Types Packs/Day Years [...] filedocumented in this encounter Care Teams Radio Frequency Engineer Relationship Specialty Start Date End Date Dennis Doran MD PCP - General INTERNAL MEDICINE 02/28/17 10/23/23 Joann Marquez, ANP-BC [address] [facility] [address] [place] [address] [place] Forest Management Professor NURSE PRACTITIONER 02/28/17 documented as of this encounter
--- OUTSIDE RECORDS SUMMARY | 2024-10-26 10:09 | XMS_ITS | Encounter Summary ---
Author Organization [facility] Address [address] [place] [address]. [place], [place] [address] [place] [address] Care Team Providers Care Ship/Rec/Doc Control Name Role Phone Dennis Doran MD Primary Care Provider [phone] Joann Marquez-BC Unavailable [phone] Encounter Details Date Type Department Care Team (Late st Contact Info) Description 03/23/2009 Abstract [facility] [address] [place] [address] Saleem Rosas MD Social History Tobacco Use [...] on filedocumented in this encounter Care Teams Ship/Rec/Doc Control Relationship Specialty Start Date End Date Dennis Doran MD PCP - General INTERNAL MEDICINE 02/28/17 10/23/23 Joann Marquez ANP-BC [address] [place] [address] 4P57 [place] [address] [place] Patient Support Assistant NURSE PRACTITIONER 02/28/17 documented as of this encounter
--- OUTSIDE RECORDS SUMMARY | 2024-10-26 10:09 | XMS_ITS | Encounter Summary ---
Author Organization [facility] Address [facility] [place] [address] [place] [address] Care Team Providers Care Hair Boiler Operator Name Role Phone Dennis Doran MD Primary Care Provider [phone] Joann Marquez-BC Unavailable [phone] Encounter Details Date Type Department Care Team (Late st Contact Info) Description 03/22/2013 Abstract [facility] Diagnostic Imaging [address] [place] [address] Ho Bangura, SENIOR PAYROLL SPECIALIST [address], [place] [address] Social History Tobacco Use Types [...] site documented in this encounter Care Teams Hair Boiler Operator Relationship Specialty Start Date End Date Dennis Doran MD PCP - General INTERNAL MEDICINE 02/28/17 10/23/23 Joann Marquez ANP-BC 6[address] [facility] 4P57 [place] [address] [place] Roustabout Crew Leader NURSE PRACTITIONER 02/28/17 documented as of this encounter
--- OUTSIDE RECORDS SUMMARY | 2024-10-26 10:09 | XMS_ITS | Encounter Summary ---
Author Organization [facility] Address [address] [place] [address]. [place], [place] [address] [place] [address] Care Team Providers Care Embalmer Assistant Name Role Phone Unavailable Primary Care Provider Unavailabl e Encounter Details Date Type Department Care Team (Late st Contact Info) Description 01/19/2014 [facility] [address] [place] [address] , Dionicio Mabry MD Social [...] ??1 2013 ??9:28:45:000AM us Generic Conversion Md [facility] Final [...]
--- OUTSIDE RECORDS SUMMARY | 2024-10-26 10:09 | XMS_ITS | Encounter Summary ---
Author Organization [facility] Address [address] [place] [address]. [place], [place] [address] [place] [address] Care Team Providers Care Produce Manager Name Role Phone Dennis Doran MD Primary Care Provider [phone] Joann Marquez-BC Unavailable [phone] Encounter Details Date Type Department Care Team (Late st Contact Info) Description 06/06/2010 Abstract [facility] CONVERSION [address] [place] [address] Denisha Hansen PA 12[address] [place] [address] Social History Tobacco Use Types Packs/Day Years [...] filedocumented in this encounter Care Teams Produce Manager Relationship Specialty Start Date End Date Dennis Doran MD PCP - General INTERNAL MEDICINE 02/28/17 10/23/23 Joann Marquez, ANP-BC [address] [facility] 4P57 [place] [address] [employer] Emerging Technologies Director NURSE PRACTITIONER 02/28/17 documented as of this encounter
--- OUTSIDE RECORDS SUMMARY | 2024-10-26 10:09 | XMS_ITS | Encounter Summary ---
Author Organization [facility] Address [address] [place] [address]. [place], [place] [address] [place] [address] Care Team Providers Care Reactor Service Operator Name Role Phone Dennis Doran MD Primary Care Provider [phone] Joann Marquez-BC Unavailable [phone] Encounter Details Date Type Department Care Team (Late st Contact Info) Description 03/02/2010 Abstract [facility] CONVERSION [address] [place] [address] Denisha Hansen PA 12[address] [place] [address] Social History Tobacco Use Types Packs/Day Years [...] on filedocumented in this encounter Care Teams Reactor Service Operator Relationship Specialty Start Date End Date Dennis Doran MD PCP - General INTERNAL MEDICINE 02/28/17 10/23/23 Joann Marquez, ANP-BC [address] [facility] 4P57 [place] [address] [place] Hydrometeorological Technician NURSE PRACTITIONER 02/28/17 documented as of this encounter
--- OUTSIDE RECORDS SUMMARY | 2024-10-26 10:09 | XMS_ITS | Encounter Summary ---
Author Organization [facility] Address [address] [place] [address]. [place], [place] [address] [place] [address] Care Team Providers Care Health Information Technician Name Role Phone Dennis Doran MD Primary Care Provider [phone] Joann Marquez-BC Unavailable [phone] Encounter Details Date Type Department Care Team (Late st Contact Info) Description 06/24/2010 Abstract [facility] CONVERSION [address] [place] [address] Dennis Doran MD [facility] [place] [address] Social History Tobacco Use Types Packs/Day Years [...] filedocumented in this encounter Care Teams Health Information Technician Relationship Specialty Start Date End Date Dennis Doran MD PCP - General INTERNAL MEDICINE 02/28/17 10/23/23 Joann Marquez ANP-BC [address] [facility] 4P57 [place] [address] [place] Wood Technologist NURSE PRACTITIONER 02/28/17 documented as of this encounter
--- OUTSIDE RECORDS SUMMARY | 2024-10-26 10:09 | XMS_ITS | Encounter Summary ---
Author Organization [facility] Address [address] [place] [address]. [place] [address] [place] [address] Care Team Providers Care Aviation Electronics Technician Name Role Phone Dennis Doran MD Primary Care Provider [phone] Joann Marquez ANP-BC Unavailable [phone] Encounter Details Date Type Department Care Team (Late st Contact Info) Description 04/08/2013 Abstract [facility] Diagnostic Imaging [address] [place] [address] Saji Dee MD [facility] [address] [address] Social History Tobacco Use Types [...] on filedocumented in this encounter Care Teams Aviation Electronics Technician Relationship Specialty Start Date End Date Dennis Doran MD PCP - General INTERNAL MEDICINE 02/28/17 10/23/23 Joann Marquez, ANP-BC [address] [facility] 4P[address] [place] [address] [place] Filling Mixer NURSE PRACTITIONER 02/28/17 documented as of this encounter
--- OUTSIDE RECORDS SUMMARY | 2024-10-26 10:09 | XMS_ITS | Encounter Summary ---
Author Organization [facility] Address [address] [place] [address]. [place], [place] [address] [place] [address] Care Team Providers Care Manager Freelance Name Role Phone Unavailable Primary Care Provider Unavailabl e Encounter Details Date Type Department Care Team (Late st Contact Info) Description 01/28/2014 [facility] AT [facility] [address] [place] [address] , Dionicio Mabry MD Social History Tobacco [...]
--- OUTSIDE RECORDS SUMMARY | 2024-10-26 10:09 | XMS_ITS | Encounter Summary ---
Author Organization [facility] - [facility] Address [address] [place] [address]. [place], [place] [address] [place] [address] Care Team Providers Care Electrical Worker Name Role Phone Dennis Doran MD Primary Care Provider [phone] Joann Marquez-BC Unavailable [phone] Encounter Details Date Type Department Care Team (Late st Contact Info) Description 10/28/2008 Abstract [facility] CONVERSION [address] [place] [address] Elsi Kerns, DO [address] [place] [address] Social History Tobacco Use Types Packs/Day [...] filedocumented in this encounter Care Teams Electrical Worker Relationship Specialty Start Date End Date Dennis Doran MD PCP - General INTERNAL MEDICINE 02/28/17 10/23/23 Joann Marquez ANP-BC [address] [facility] 4P57 [place] [address] [place] Bakery Manager NURSE PRACTITIONER 02/28/17 documented as of this encounter
--- OUTSIDE RECORDS SUMMARY | 2024-10-26 10:09 | XMS_ITS | Encounter Summary ---
Author Organization [facility] Address [facility]. [place], [place] [address] [place] [address] Care Team Providers Care Education Program Associate Name Role Phone Dennis Doran MD Primary Care Provider [phone] Joann Marquez-BC Unavailable [phone] Encounter Details Date Type Department Care Team (Late st Contact Info) Description 03/02/2008 Abstract [facility] CONVERSION [address] [place] [address] Elsi Kerns, DO [address] [place] [address] Social History Tobacco Use Types Packs/Day [...] on filedocumented in this encounter Care Teams Education Program Associate Relationship Specialty Start Date End Date Dennis Doran MD PCP - General INTERNAL MEDICINE 02/28/17 10/23/23 Joann Marquez ANP-BC [address] [facility] 4P57 [place] [address] [place] Exhibition Designer NURSE PRACTITIONER 02/28/17 documented as of this encounter
--- OUTSIDE RECORDS SUMMARY | 2024-10-26 10:09 | XMS_ITS | Encounter Summary ---
Author Organization [facility] Address [address] [place] [address]. [place], [place] [address] [place] [address] Care Team Providers Care Fitting Room Maintenance Mechanic Name Role Phone Dennis Doran MD Primary Care Provider [phone] Joann Marquez-BC Unavailable [phone] Encounter Details Date Type Department Care Team (Late st Contact Info) Description 03/17/2009 Abstract [facility] Emergency Room [address] [place] [address] Social History Tobacco Use Types Packs/Day Years [...] on filedocumented in this encounter Care Teams Fitting Room Maintenance Mechanic Relationship Specialty Start Date End Date Dennis Doran MD PCP - General INTERNAL MEDICINE 02/28/17 10/23/23 Joann Marquez ANP-BC [address] [place] [address] 4P57 [place] [address] [place] Coal Trimmer NURSE PRACTITIONER 02/28/17 documented as of this encounter
--- OUTSIDE RECORDS SUMMARY | 2024-10-26 10:10 | XMS_ITS | Encounter Summary ---
Author Organization [facility] Address Critical access hospital6 [facility]. [place], [place] [address] [place] [address] Care Team Providers Care Manager Center Name Role Phone Dennis Doran MD Primary Care Provider [phone] Joann Marquez-ERICA Unavailable [phone] Encounter Details Date Type Department Care Team (Late st Contact Info) Description 06/09/2005 Abstract [facility] CONVERSION [address] [place] [address] Bertrand Mckeon MD [address] [place] [address] [phone] Social History Tobacco Use Types Packs/Day Years [...] filedocumented in this encounter Care Teams Manager Center Relationship Specialty Start Date End Date Dennis Doran MD PCP - General INTERNAL MEDICINE 02/28/17 10/23/23 Joann Marquez ANP-BC [address] [facility] 4P57 [place] [address] [place] White Lead Filterer NURSE PRACTITIONER 02/28/17 documented as of this encounter
--- OUTSIDE RECORDS SUMMARY | 2024-10-26 10:10 | XMS_ITS | Encounter Summary ---
Author Organization [facility] Address Critical access hospital6 [facility] [place] [address] [place] [address] Care Team Providers Care Children'S Author Name Role Phone Dennis Doran MD Primary Care Provider [phone] Joann Marquez ANP-BC Unavailable [phone] Encounter Details Date Type Department Care Team (Late st Contact Info) Description 12/31/2007 Abstract [facility] CONVERSION [address] [place] [address] Mike Toledo MD [address] [place] [address] Social History Tobacco Use Types Packs/Day [...] on filedocumented in this encounter Care Teams Children'S Author Relationship Specialty Start Date End Date Dennis Doran MD PCP - General INTERNAL MEDICINE 02/28/17 10/23/23 Joann Marquez, ANP-BC [address] [facility] 4P57 [place] [address] [place] Outside Sales Inspector NURSE PRACTITIONER 02/28/17 documented as of this encounter
--- OUTSIDE RECORDS SUMMARY | 2024-10-26 10:10 | XMS_ITS | Encounter Summary ---
Author Organization [facility] Address [facility]6 [facility]. [place], [place] [address] [place] [address] Care Team Providers Care Rn Ortho Name Role Phone Dennis Doran MD Primary Care Provider [phone] Joann Marquez-ERICA Unavailable [phone] Encounter Details Date Type Department Care Team (Late st Contact Info) Description 02/15/2004 Abstract [facility] CONVERSION [address] [place] [address] Bertrand Mckeon MD [address] [place] [address] [phone] Social History Tobacco Use Types Packs/Day Years [...] filedocumented in this encounter Care Teams Rn Ortho Relationship Specialty Start Date End Date Dennis Doran MD PCP - General INTERNAL MEDICINE 02/28/17 10/23/23 Joann Marquez ANP-BC [address] [place] [address] 4P57 [place] [address] [place] Epidemiology Intern NURSE PRACTITIONER 02/28/17 documented as of this encounter
--- OUTSIDE RECORDS SUMMARY | 2024-10-26 10:10 | XMS_ITS | Encounter Summary ---
Author Organization [facility] Address [facility]6 [facility]. [place], [place] [address] [place] [address] Care Team Providers Care Market Investigator Name Role Phone Dennis Doran MD Primary Care Provider [phone] Joann Marquez-ERICA Unavailable [phone] Encounter Details Date Type Department Care Team (Late st Contact Info) Description 06/12/2005 Abstract [facility] CONVERSION [address] [place] [address] Bertrand Mckeon MD [address] [place] [address] [phone] Social History Tobacco Use Types Packs/Day Years [...] on filedocumented in this encounter Care Teams Market Investigator Relationship Specialty Start Date End Date Dennis Doran MD PCP - General INTERNAL MEDICINE 02/28/17 10/23/23 Joann Marquez ANP-BC [address] [facility] [place] [address]P57 [place] [address] [place]lis Apple Thinner NURSE PRACTITIONER 02/28/17 documented as of this encounter
--- OUTSIDE RECORDS SUMMARY | 2024-10-26 10:10 | XMS_ITS | Encounter Summary ---
Author Organization [facility] Address [facility]6 [facility]. [place], [place] [address] [place] [address] Care Team Providers Care Career Discovery Teacher Name Role Phone Dennis Doran MD Primary Care Provider [phone] Joann Marquez-BC Unavailable [phone] Encounter Details Date Type Department Care Team (Late st Contact Info) Description 10/12/2003 Abstract [facility] CONVERSION [address] [place] [address] , Generic Conversion, Social History Tobacco Use [...] on filedocumented in this encounter Care Teams Career Discovery Teacher Relationship Specialty Start Date End Date Dennis Doran MD PCP - General INTERNAL MEDICINE 02/28/17 10/23/23 Joann Marquez ANP-BC [address] [place] [address] 4P57 [place] [address] [place] Wallpaper Cleaner NURSE PRACTITIONER 02/28/17 documented as of this encounter
--- OUTSIDE RECORDS SUMMARY | 2024-10-26 10:10 | XMS_ITS | Encounter Summary ---
Author Organization [facility] Address [facility]6 [facility]. [place], [place] [address] [place] [address] Care Team Providers Care Sawmill Manager Name Role Phone Dennis Doran MD Primary Care Provider [phone] Joann Marquez-ERICA Unavailable [phone] Encounter Details Date Type Department Care Team (Late st Contact Info) Description 10/04/2004 Abstract [facility] CONVERSION [address] [place] [address] Bertrand Mckeon MD [address] [place] [address] [phone] Social History Tobacco Use Types Packs/Day Years [...] on filedocumented in this encounter Care Teams Sawmill Manager Relationship Specialty Start Date End Date Dennis Doran MD PCP - General INTERNAL MEDICINE 02/28/17 10/23/23 Joann Marquez ANP-BC [address] [facility] 4P57 [place] [address] [place] Rn Visiting NURSE PRACTITIONER 02/28/17 documented as of this encounter
--- OUTSIDE RECORDS SUMMARY | 2024-10-26 10:10 | XMS_ITS | Encounter Summary ---
Author Organization [facility] Address [facility]6 [facility]. [place], [place] [address] [place] [address] Care Team Providers Care Switchboard Manager Name Role Phone Dennis Doran MD Primary Care Provider [phone] Joann Marquez-BC Unavailable [phone] Encounter Details Date Type Department Care Team (Late st Contact Info) Description 05/06/2002 Abstract [facility] CONVERSION [address] [place] [address] , Generic Conversion, Social History Tobacco Use [...] on filedocumented in this encounter Care Teams Switchboard Manager Relationship Specialty Start Date End Date Dennis Doran MD PCP - General INTERNAL MEDICINE 02/28/17 10/23/23 Joann Marquez ANP-BC [address] [place] [address] 4P57 [place] [address] [place] Presiding Steward NURSE PRACTITIONER 02/28/17 documented as of this encounter
--- OUTSIDE RECORDS SUMMARY | 2024-10-26 10:10 | XMS_ITS | Encounter Summary ---
Author Organization [facility] Address [facility]6 [facility]. [place], [place] [address] [place] [address] Care Team Providers Care Cloth Folder Machine Name Role Phone Dennis Doran MD Primary Care Provider [phone] Joann Marquez-BC Unavailable [phone] Encounter Details Date Type Department Care Team (Late st Contact Info) Description 05/28/2003 Abstract [facility] CONVERSION [address] [place] [address] , Generic Conversion, Social History Tobacco Use [...] on filedocumented in this encounter Care Teams Cloth Folder Machine Relationship Specialty Start Date End Date Dennis Doran MD PCP - General INTERNAL MEDICINE 02/28/17 10/23/23 Joann Marquez ANP-BC [address] [place] [address] 4P57 [place] [address] [place] Meter Tester Primary NURSE PRACTITIONER 02/28/17 documented as of this encounter
--- OUTSIDE RECORDS SUMMARY | 2024-10-26 10:10 | XMS_ITS | Encounter Summary ---
Author Organization [facility] Address [facility]6 [facility]. [place], [place] [address] [place] [address] Care Team Providers Care Supervisor Hand Silvering Name Role Phone Dennis Doran MD Primary Care Provider [phone] Joann Marquez-BC Unavailable [phone] Encounter Details Date Type Department Care Team (Late st Contact Info) Description 10/03/2001 Abstract [facility] CONVERSION [address] [place] [address] , Generic Conversion, Social History Tobacco Use [...] filedocumented in this encounter Care Teams Supervisor Hand Silvering Relationship Specialty Start Date End Date Dennis Doran MD PCP - General INTERNAL MEDICINE 02/28/17 10/23/23 Joann Marquez ANP-BC [address] [place] [address] 4P57 [place] [address] [place] Environmental Research Project Manager NURSE PRACTITIONER 02/28/17 documented as of this encounter
--- OUTSIDE RECORDS SUMMARY | 2024-10-26 10:10 | XMS_ITS | Encounter Summary ---
Author Organization [facility] Address [facility]6 [facility]. [place], [place] [address] [place] [address] Care Team Providers Care It Operations Manager Name Role Phone Dennis Doran MD Primary Care Provider [phone] Joann Marquez-ERICA Unavailable [phone] Encounter Details Date Type Department Care Team (Late st Contact Info) Description 07/27/2004 Abstract [facility] CONVERSION [address] [place] [address] Bertrand Mckeon MD [address] [place] [address] [phone] Social History Tobacco Use Types Packs/Day Years [...] filedocumented in this encounter Care Teams It Operations Manager Relationship Specialty Start Date End Date Dennis Doran MD PCP - General INTERNAL MEDICINE 02/28/17 10/23/23 Joann Marquez ANP-BC [address] [place] [address] 4P57 [place] [address] [place] Glucose And Syrup Weigher NURSE PRACTITIONER 02/28/17 documented as of this encounter
--- OUTSIDE RECORDS SUMMARY | 2024-10-26 10:10 | XMS_ITS | Encounter Summary ---
Author Organization [facility] Address [facility]. [place] [address] [place] [address] Care Team Providers Care Telephone Operator Chief Name Role Phone Dennis Doran MD Primary Care Provider [phone] Joann Marquez-ERICA Unavailable [phone] Encounter Details Date Type Department Care Team (Late st Contact Info) Description 05/10/2004 Abstract [facility] CONVERSION [address] [place] [address] Bertrand Mckeon MD [address] [place] [address] [phone] Social History Tobacco Use Types Packs/Day Years [...] on filedocumented in this encounter Care Teams Telephone Operator Chief Relationship Specialty Start Date End Date Dennis Doran MD PCP - General INTERNAL MEDICINE 02/28/17 10/23/23 Joann Marquez ANP-BC [address] [facility] [address] [place] [address] [place] Service Employee NURSE PRACTITIONER 02/28/17 documented as of this encounter
--- OUTSIDE RECORDS SUMMARY | 2024-10-26 10:10 | XMS_ITS | Encounter Summary ---
Author Organization [facility] Address [facility]6 [facility]. [place], [place] [address] [place] [address] Care Team Providers Care Warehouse Receiving Clerk Name Role Phone Dennis Doran MD Primary Care Provider [phone] Joann Marquez-ERICA Unavailable [phone] Encounter Details Date Type Department Care Team (Late st Contact Info) Description 04/17/2005 Abstract [facility] CONVERSION [address] [place] [address] Bertrand Mckeon MD [address] [place] [address] [phone] Social History Tobacco Use Types Packs/Day Years [...] on filedocumented in this encounter Care Teams Warehouse Receiving Clerk Relationship Specialty Start Date End Date Dennis Doran MD PCP - General INTERNAL MEDICINE 02/28/17 10/23/23 Joann Marquez ANP-BC [address] [place] [address] 4P57 [place] [address] [place] Script Girl NURSE PRACTITIONER 02/28/17 documented as of this encounter
--- OUTSIDE RECORDS SUMMARY | 2024-10-26 10:10 | XMS_ITS | Encounter Summary ---
Author Organization [facility] Address [facility]6 [facility]. [place], [place] [address] [place] [address] Care Team Providers Care Residential Worker Name Role Phone Dennis Doran MD Primary Care Provider [phone] Joann Marquez-BC Unavailable [phone] Encounter Details Date Type Department Care Team (Late st Contact Info) Description 06/18/2003 Abstract [facility] CONVERSION [address] [place] [address] , Generic Conversion, Social History Tobacco Use [...] on filedocumented in this encounter Care Teams Residential Worker Relationship Specialty Start Date End Date Dennis Doran MD PCP - General INTERNAL MEDICINE 02/28/17 10/23/23 Joann Marquez ANP-BC [address] [place] [address] 4P57 [place] [address] [place] Cargo Vessel Stewardess NURSE PRACTITIONER 02/28/17 documented as of this encounter
--- OUTSIDE RECORDS SUMMARY | 2024-10-26 10:10 | XMS_ITS | Encounter Summary ---
Author Organization [facility] Address [facility]6 [facility]. [place], [place] [address] [place] [address] Care Team Providers Care Shearing Supervisor Name Role Phone Dennis Doran MD Primary Care Provider [phone] Joann Marquez-ERICA Unavailable [phone] Encounter Details Date Type Department Care Team (Late st Contact Info) Description 02/10/2004 Abstract [facility] CONVERSION [address] [place] [address] Bertrand Mckeon MD [address] [place] [address] [phone] Social History Tobacco Use Types Packs/Day Years [...] on filedocumented in this encounter Care Teams Shearing Supervisor Relationship Specialty Start Date End Date Dennis Doran MD PCP - General INTERNAL MEDICINE 02/28/17 10/23/23 Joann Marquez ANP-BC [address] [place] [address] 4P57 [place] [address] [place] Production Editor NURSE PRACTITIONER 02/28/17 documented as of this encounter
--- OUTSIDE RECORDS SUMMARY | 2024-10-26 10:10 | XMS_ITS | Encounter Summary ---
Author Organization [facility] Address [facility]6 [facility]. [place], [place] [address] [place] [address] Care Team Providers Care Environmental Research Scientist Name Role Phone Dennis Doran MD Primary Care Provider [phone] Joann Marquez-BC Unavailable [phone] Encounter Details Date Type Department Care Team (Late st Contact Info) Description 07/09/2002 Abstract [facility] CONVERSION [address] [place] [address] , Generic Conversion, Social History Tobacco Use [...] on filedocumented in this encounter Care Teams Environmental Research Scientist Relationship Specialty Start Date End Date Dennis Doran MD PCP - General INTERNAL MEDICINE 02/28/17 10/23/23 Joann Marquez ANP-BC [address] [place] [address] 4P57 [place] [address] [place] Locomotive Boilermaker NURSE PRACTITIONER 02/28/17 documented as of this encounter
--- OUTSIDE RECORDS SUMMARY | 2024-10-26 10:10 | XMS_ITS | Encounter Summary ---
Author Organization [facility] Address [facility] [place] [address] [place] [address] Care Team Providers Care Cash Register Servicer Name Role Phone Dennis Doran MD Primary Care Provider [phone] Joann Marquez-ERICA Unavailable [phone] Encounter Details Date Type Department Care Team (Late st Contact Info) Description 05/06/2006 Abstract [facility] Emergency Room [address] [place] [address] Mateusz Patterson MD [address] [place] [address] Social History Tobacco Use Types [...] on filedocumented in this encounter Care Teams Cash Register Servicer Relationship Specialty Start Date End Date Dennis Doran MD PCP - General INTERNAL MEDICINE 02/28/17 10/23/23 Joann Marquez ANP-BC [address] [facility] [address] [place] [address] [place] Forms Analysis Manager NURSE PRACTITIONER 02/28/17 documented as of this encounter
--- OUTSIDE RECORDS SUMMARY | 2024-10-26 10:10 | XMS_ITS | Encounter Summary ---
Author Organization [facility] Address [facility]6 [facility]. [place], [place] [address] [place] [address] Care Team Providers Care Web Programmer Name Role Phone Dennis Doran MD Primary Care Provider [phone] Joann Marquez-BC Unavailable [phone] Encounter Details Date Type Department Care Team (Late st Contact Info) Description 06/16/2002 Abstract [facility] CONVERSION [address] [place] [address] , Generic Conversion, Social History Tobacco Use [...] filedocumented in this encounter Care Teams Web Programmer Relationship Specialty Start Date End Date Dennis Doran MD PCP - General INTERNAL MEDICINE 02/28/17 10/23/23 Joann Marquez ANP-BC [address] [place] [address] 4P57 [place] [address] [place] Direct Care Professional NURSE PRACTITIONER 02/28/17 documented as of this encounter
--- OUTSIDE RECORDS SUMMARY | 2024-10-26 10:10 | XMS_ITS | Encounter Summary ---
Author Organization [facility] Address [facility]6 [facility]. [place], [place] [address] [place] [address] Care Team Providers Care Bridal Stylist Sales Consultant Name Role Phone Dennis Doran MD Primary Care Provider [phone] Joann Marquez-BC Unavailable [phone] Encounter Details Date Type Department Care Team (Late st Contact Info) Description 01/08/2002 Abstract [facility] CONVERSION [address] [place] [address] , Generic Conversion, Social History Tobacco Use [...] on filedocumented in this encounter Care Teams Bridal Stylist Sales Consultant Relationship Specialty Start Date End Date Dennis Doran MD PCP - General INTERNAL MEDICINE 02/28/17 10/23/23 Joann Marquez ANP-BC [address] [place] [address] 4P57 [place] [address] [place] Rubber Mill Operator NURSE PRACTITIONER 02/28/17 documented as of this encounter
--- OUTSIDE RECORDS SUMMARY | 2024-10-26 10:10 | XMS_ITS | Encounter Summary ---
Author Organization [facility] Address [facility]6 [facility]. [place], [place] [address] [place] [address] Care Team Providers Care Motor Electrician Name Role Phone Dennis Doran MD Primary Care Provider [phone] Joann Marquez-BC Unavailable [phone] Encounter Details Date Type Department Care Team (Late st Contact Info) Description 10/10/2001 Abstract [facility] CONVERSION [address] [place] [address] , Generic Conversion, Social History Tobacco Use [...] filedocumented in this encounter Care Teams Motor Electrician Relationship Specialty Start Date End Date Dennis Doran MD PCP - General INTERNAL MEDICINE 02/28/17 10/23/23 Joann Marquez ANP-BC [address] [place] [address] 4P57 [place] [address] [place] Turpentiner NURSE PRACTITIONER 02/28/17 documented as of this encounter
--- OUTSIDE RECORDS SUMMARY | 2024-10-26 10:10 | XMS_ITS | Encounter Summary ---
Author Organization [facility] Address [facility] [facility]. [place], [place] [address] [place] [address] Care Team Providers Care Mining Captain Name Role Phone Dennis Doran MD Primary Care Provider [phone] Joann Marquez-BC Unavailable [phone] Encounter Details Date Type Department Care Team (Late st Contact Info) Description 08/25/2002 Abstract [facility] CONVERSION [address] [place] [address] , Generic Conversion, Social History Tobacco Use [...] on filedocumented in this encounter Care Teams Mining Captain Relationship Specialty Start Date End Date Dennis Doran MD PCP - General INTERNAL MEDICINE 02/28/17 10/23/23 Joann Marquez ANP-BC [address] [place] [address] 4P57 [place] [address] [place] Gas Meter Checker NURSE PRACTITIONER 02/28/17 documented as of this encounter
--- OUTSIDE RECORDS SUMMARY | 2024-10-26 10:10 | XMS_ITS | Encounter Summary ---
Author Organization [facility] Address [facility]6 [facility]. [place], [place] [address] [place] [address] Care Team Providers Care Bouffant Curtain Machine Tender Name Role Phone Dennis Doran MD Primary Care Provider [phone] Joann Marquez-BC Unavailable [phone] Encounter Details Date Type Department Care Team (Late st Contact Info) Description 05/18/2003 Abstract [facility] CONVERSION [address] [place] [address] , Generic Conversion, Social History Tobacco Use [...] on filedocumented in this encounter Care Teams Bouffant Curtain Machine Tender Relationship Specialty Start Date End Date Dennis Dorna MD PCP - General INTERNAL MEDICINE 02/28/17 10/23/23 Joann Marquez ANP-BC [address] [place] [address] 4P57 [place] [address] Raymond Environmental Economist NURSE PRACTITIONER 02/28/17 documented as of this encounter
--- OUTSIDE RECORDS SUMMARY | 2024-10-26 10:10 | XMS_ITS | Encounter Summary ---
Author Organization [facility] Address [facility]6 [facility]. [place], [place] [address] [place] [address]184 Care Team Providers Care Bleacher Kraft Pulp Name Role Phone Dennis Doran MD Primary Care Provider [phone] Joann Marquez-BC Unavailable [phone] Encounter Details Date Type Department Care Team (Late st Contact Info) Description 01/07/2002 Abstract [facility] CONVERSION [address] [place] [address] , Generic Conversion, Social History Tobacco Use [...] on filedocumented in this encounter Care Teams Bleacher Kraft Pulp Relationship Specialty Start Date End Date Dennis Doran MD PCP - General INTERNAL MEDICINE 02/28/17 10/23/23 Joann Marquez ANP-BC [address] [place] [address] 4[address]57 [place] [address] [place] Water System Operator NURSE PRACTITIONER 02/28/17 documented as of this encounter
--- OUTSIDE RECORDS SUMMARY | 2024-10-26 10:10 | XMS_ITS | Encounter Summary ---
Author Organization [facility] Address [facility]6 [facility]. [place], [place] [address] [place] [address] Care Team Providers Care Hub Bander Name Role Phone Dennis Doran MD Primary Care Provider [phone] Joann Marquez-ERICA Unavailable [phone] Encounter Details Date Type Department Care Team (Late st Contact Info) Description 06/16/2005 Abstract [facility] CONVERSION [address] [place] [address] Bertrand Mckeon MD [address] [place] [address] [id number] Social History Tobacco Use Types Packs/Day Years [...] on filedocumented in this encounter Care Teams Hub Bander Relationship Specialty Start Date End Date Dennis Doran MD PCP - General INTERNAL MEDICINE 02/28/17 10/23/23 Joann Marquez ANP-BC [address] [facility] [address] [place] [address] [place] Paying Teller NURSE PRACTITIONER 02/28/17 documented as of this encounter
--- OUTSIDE RECORDS SUMMARY | 2024-10-26 10:10 | XMS_ITS | Encounter Summary ---
Author Organization [facility] Address [facility]6 [facility]. [place], [place] [address] [place] [address] Care Team Providers Care Housekeeping Coordinator Name Role Phone Dennis Doran MD Primary Care Provider [phone] Joann Marquez-BC Unavailable [phone] Encounter Details Date Type Department Care Team (Late st Contact Info) Description 06/15/2003 Abstract [facility] CONVERSION [address] [place] [address] , Generic Conversion, Social History Tobacco Use [...] on filedocumented in this encounter Care Teams Housekeeping Coordinator Relationship Specialty Start Date End Date Dennis Doran MD PCP - General INTERNAL MEDICINE 02/28/17 10/23/23 Joann Marquez ANP-BC [address] [place] [address] 4P57 [place] [address] [place] Clearance Coordinator NURSE PRACTITIONER 02/28/17 documented as of this encounter
--- OUTSIDE RECORDS SUMMARY | 2024-10-26 10:10 | XMS_ITS | Encounter Summary ---
Author Organization [facility] Address [facility]6 [facility] [place], [place] [address] [place] [address] Care Team Providers Care Bench Assembler Operator Name Role Phone Dennis Doran MD Primary Care Provider [phone] Joann Marquez-BC Unavailable [phone] Encounter Details Date Type Department Care Team (Late st Contact Info) Description 06/25/2003 Abstract [facility] CONVERSION [address] [place] [address] , Generic Conversion, Social History Tobacco Use [...] on filedocumented in this encounter Care Teams Bench Assembler Operator Relationship Specialty Start Date End Date Dennis Doran MD PCP - General INTERNAL MEDICINE 02/28/17 10/23/23 Joann Marquez ANP-BC [address] [place] [address] 4[address] [place] [address] [place] Quality Checker NURSE PRACTITIONER 02/28/17 documented as of this encounter
--- OUTSIDE RECORDS SUMMARY | 2024-10-26 10:10 | XMS_ITS | Encounter Summary ---
Author Organization [facility] Address [facility] [place], [place] [address] [place] [address] Care Team Providers Care Job Lithographer Name Role Phone Dennis Doran MD Primary Care Provider [phone] Joann Marquez-BC Unavailable [phone] Encounter Details Date Type Department Care Team (Late st Contact Info) Description 10/03/2007 Abstract [facility] CONVERSION [address] [place] [address] Elsi Kerns, DO [address] [place] [address] Social History Tobacco Use Types Packs/Day [...] on filedocumented in this encounter Care Teams Job Lithographer Relationship Specialty Start Date End Date Dennis Doran MD PCP - General INTERNAL MEDICINE 02/28/17 10/23/23 Joann Marquez ANP-BC [address] [facility] [place] [place] [address] [place] [address] [place] Toe Former Stitchdowns NURSE PRACTITIONER 02/28/17 documented as of this encounter
--- OUTSIDE RECORDS SUMMARY | 2024-10-26 10:10 | XMS_ITS | Encounter Summary ---
Author Organization [facility] - [facility] Address [address] [place] [address]. [place], [place] [address] [place] [address] Care Team Providers Care Geophysical Computer Name Role Phone Dennis Doran MD Primary Care Provider [phone] Joann Marquez-BC Unavailable [phone] Encounter Details Date Type Department Care Team (Late st Contact Info) Description 11/26/2007 Abstract [facility] CONVERSION [address] [place] [address] Elsi Kerns, DO [address] [place] [address] Social History Tobacco Use Types Packs/Day [...] on filedocumented in this encounter Care Teams Geophysical Computer Relationship Specialty Start Date End Date Dennis Doran MD PCP - General INTERNAL MEDICINE 02/28/17 10/23/23 Joann Marquez ANP-BC [address] [facility] [address] [place] [address] [place] Certified Medication Technician NURSE PRACTITIONER 02/28/17 documented as of this encounter
--- OUTSIDE RECORDS SUMMARY | 2024-10-26 10:11 | XMS_ITS | Encounter Summary ---
Author Organization [facility] Address [facility]6 [facility]. [place], [place] [address] [place] [address] Care Team Providers Care Pouncer Name Role Phone Dennis Doran MD Primary Care Provider [phone] Joann Marquez-BC Unavailable [phone] Encounter Details Date Type Department Care Team (Late st Contact Info) Description 05/25/1995 Abstract [facility] CONVERSION [address] [place] [address] , Generic Conversion, Social History Tobacco Use [...] on filedocumented in this encounter Care Teams Pouncer Relationship Specialty Start Date End Date Dennis Doran MD PCP - General INTERNAL MEDICINE 02/28/17 10/23/23 Joann Marquez ANP-BC [address] [place] [address] 4[address] [place] [address] Max Marketing Segment Manager NURSE PRACTITIONER 02/28/17 documented as of this encounter
--- OUTSIDE RECORDS SUMMARY | 2024-10-26 10:11 | XMS_ITS | Encounter Summary ---
Author Organization [facility] Address [facility]. [place], [place] [address] [place] [address] Care Team Providers Care Gasoline Power Shovel Operator Name Role Phone Dennis Doran MD Primary Care Provider [phone] Joann Marquez-BC Unavailable [phone] Encounter Details Date Type Department Care Team (Late st Contact Info) Description 07/06/1995 Abstract [facility] CONVERSION [address] [place] [address] , Generic Conversion, Social History Tobacco Use [...] on filedocumented in this encounter Care Teams Gasoline Power Shovel Operator Relationship Specialty Start Date End Date Dennis Doran MD PCP - General INTERNAL MEDICINE 02/28/17 10/23/23 Joann Marquez ANP-BC [address] [place] [address] 4[address]57 [place] [address] [place] [address] Manager NURSE PRACTITIONER 02/28/17 documented as of this encounter
--- OUTSIDE RECORDS SUMMARY | 2024-10-26 10:11 | XMS_ITS | Encounter Summary ---
Author Organization [facility] Address [facility] [place], [place] [address] [place] [address]135 Care Team Providers Care Scientific Informatics Leader Name Role Phone Dennis Doran MD Primary Care Provider [phone] Joann Marquez-BC Unavailable [phone] Encounter Details Date Type Department Care Team (Late st Contact Info) Description 12/21/1995 Abstract [facility] CONVERSION [address] [place] [address] , Generic Conversion, Social History Tobacco Use [...] on filedocumented in this encounter Care Teams Scientific Informatics Leader Relationship Specialty Start Date End Date Dennis Doran MD PCP - General INTERNAL MEDICINE 02/28/17 10/23/23 Joann Marquez ANP-BC [address] [place] [address] 4[address] [place] [address] Star Svp Research And Strategic Analysis NURSE PRACTITIONER 02/28/17 documented as of this encounter
--- OUTSIDE RECORDS SUMMARY | 2024-10-26 10:11 | XMS_ITS | Encounter Summary ---
Author Organization [facility] Address [facility]6 [facility]. [place], [place] [address] [place] [address] Care Team Providers Care Invasive Cardiovascular Technologist Name Role Phone Dennis Doran MD Primary Care Provider [phone] Joann Marquez-BC Unavailable [phone] Encounter Details Date Type Department Care Team (Late st Contact Info) Description 09/03/[address] [facility] CONVERSION [address] [place] [address] , Generic Conversion, Social History Tobacco Use [...] on filedocumented in this encounter Care Teams Invasive Cardiovascular Technologist Relationship Specialty Start Date End Date Dennis Doran MD PCP - General INTERNAL MEDICINE 02/28/17 10/23/23 Joann Marquez ANP-BC [address] [place] [address] 4[address]57 [place] [address] [place] Steam And Gas Turbine Assembler NURSE PRACTITIONER 02/28/17 documented as of this encounter
--- OUTSIDE RECORDS SUMMARY | 2024-10-26 10:11 | XMS_ITS | Encounter Summary ---
Author Organization [facility] Address [facility]6 [facility]. [place], [place] [address] [place] [address] Care Team Providers Care Lugger Name Role Phone Dennis Doran MD Primary Care Provider [phone] Joann Marquez-BC Unavailable [phone] Encounter Details Date Type Department Care Team (Late st Contact Info) Description 04/08/1996 Abstract [facility] CONVERSION [address] [place] [address] , Generic Conversion, Social History Tobacco Use [...] on filedocumented in this encounter Care Teams Lugger Relationship Specialty Start Date End Date Dennis Doran MD PCP - General INTERNAL MEDICINE 02/28/17 10/23/23 Joann Marquez ANP-BC [address] [place] [address] 4[address]57 [place] [address] [place] Landscape Drafter NURSE PRACTITIONER 02/28/17 documented as of this encounter
--- OUTSIDE RECORDS SUMMARY | 2024-10-26 10:11 | XMS_ITS | Encounter Summary ---
Author Organization [facility] Address [facility] [place], [place] [address] [place] [address] Care Team Providers Care Rod Greaser Name Role Phone Dennis Doran MD Primary Care Provider [phone] Joann Marquez-BC Unavailable [phone] Encounter Details Date Type Department Care Team (Late st Contact Info) Description 08/31/1994 Abstract [facility] CONVERSION [address] [place] [address] , Generic Conversion, Social History Tobacco Use [...] on filedocumented in this encounter Care Teams Rod Greaser Relationship Specialty Start Date End Date Dennis Doran MD PCP - General INTERNAL MEDICINE 02/28/17 10/23/23 Joann Marquez ANP-BC [address] [place] [address] 4P57 [place] [address] [place] Sales Support Specialist NURSE PRACTITIONER 02/28/17 documented as of this encounter
--- OUTSIDE RECORDS SUMMARY | 2024-10-26 10:11 | XMS_ITS | Encounter Summary ---
Author Organization [facility] Address [facility]6 [facility] [place], [place] [address] [place] [address] Care Team Providers Care Marine Underwriter Name Role Phone Dennis Doran MD Primary Care Provider [phone] Joann Marquez-BC Unavailable [phone] Encounter Details Date Type Department Care Team (Late st Contact Info) Description 04/09/1996 Abstract [facility] CONVERSION [address] [place] [address] , Generic Conversion, Social History Tobacco Use [...] on filedocumented in this encounter Care Teams Marine Underwriter Relationship Specialty Start Date End Date Dennis Doran MD PCP - General INTERNAL MEDICINE 02/28/17 10/23/23 Joann Marquez ANP-BC [address] [place] [address] 4P57 [place] [address] [place] Import/Export Specialist NURSE PRACTITIONER 02/28/17 documented as of this encounter
--- OUTSIDE RECORDS SUMMARY | 2024-10-26 10:11 | XMS_ITS | Encounter Summary ---
Author Organization [facility] Address [facility]6 [facility]. [place], [place] [address] [place] [address] Care Team Providers Care Library Helper Name Role Phone Dennis Doran MD Primary Care Provider [phone] Joann Marquez-BC Unavailable [phone] Encounter Details Date Type Department Care Team (Late st Contact Info) Description 03/07/2000 Abstract [facility] CONVERSION [address] [place] [address] , Generic Conversion, Social History Tobacco Use [...] on filedocumented in this encounter Care Teams Library Helper Relationship Specialty Start Date End Date Dennis Doran MD PCP - General INTERNAL MEDICINE 02/28/17 10/23/23 Joann Marquez ANP-BC [address] [place] [address] 4P57 [place] [address] [place] Allergy Nurse NURSE PRACTITIONER 02/28/17 documented as of this encounter
--- OUTSIDE RECORDS SUMMARY | 2024-10-26 10:11 | XMS_ITS | Encounter Summary ---
Author Organization [facility] Address [facility]6 [facility]. [place], [place] [address] [place] [address] Care Team Providers Care Process Automation Engineer Name Role Phone Dennis Doran MD Primary Care Provider [phone] Joann Marquez-BC Unavailable [phone] Encounter Details Date Type Department Care Team (Late st Contact Info) Description 05/13/1997 Abstract [facility] CONVERSION [address] [place] [address] , Generic Conversion, Social History Tobacco Use [...] on filedocumented in this encounter Care Teams Process Automation Engineer Relationship Specialty Start Date End Date Dennis Doran MD PCP - General INTERNAL MEDICINE 02/28/17 10/23/23 Joann Marquez ANP-BC [address] [place] [address] 4P57 [place] [address] [place] Hand Shoe Cutter NURSE PRACTITIONER 02/28/17 documented as of this encounter
--- OUTSIDE RECORDS SUMMARY | 2024-10-26 10:11 | XMS_ITS | Encounter Summary ---
Author Organization [facility] Address [facility] [place], [place] [address] [place] [address] Care Team Providers Care Coater Slate Name Role Phone Dennis Doran MD Primary Care Provider [phone] Joann Marquez-BC Unavailable [phone] Encounter Details Date Type Department Care Team (Late st Contact Info) Description 03/26/1995 Abstract [facility] CONVERSION [address] [place] [address] , Generic Conversion, Social History Tobacco Use [...] on filedocumented in this encounter Care Teams Coater Slate Relationship Specialty Start Date End Date Dennis Doran MD PCP - General INTERNAL MEDICINE 02/28/17 10/23/23 Joann Marquez ANP-BC [address] [place] [address] 4P57 [place] [address] [place] Director Targeted Marketing NURSE PRACTITIONER 02/28/17 documented as of this encounter
--- OUTSIDE RECORDS SUMMARY | 2024-10-26 10:11 | XMS_ITS | Encounter Summary ---
Author Organization [facility] Address [facility]6 [facility] [place], [place] [address] [place] [address] Care Team Providers Care Green Building Materials Distributor Name Role Phone Dennis Doran MD Primary Care Provider [phone] Joann Marquez-BC Unavailable [phone] Encounter Details Date Type Department Care Team (Late st Contact Info) Description 01/01/1995 Abstract [facility] CONVERSION [address] [place] [address] , Generic Conversion, Social History Tobacco Use [...] on filedocumented in this encounter Care Teams Green Building Materials Distributor Relationship Specialty Start Date End Date Dennis Doran MD PCP - General INTERNAL MEDICINE 02/28/17 10/23/23 Joann Marquez ANP-BC [address] [place] [address] 4P57 [place] [address] [place] Shock Absorption Floor Layer NURSE PRACTITIONER 02/28/17 documented as of this encounter
--- OUTSIDE RECORDS SUMMARY | 2024-10-26 10:11 | XMS_ITS | Encounter Summary ---
Author Organization [facility] Address [facility]6 [facility]. [place], [place] [address] [place] [address] Care Team Providers Care Loan Expeditor Name Role Phone Dennis Doran MD Primary Care Provider [phone] Joann Marquez-BC Unavailable [phone] Encounter Details Date Type Department Care Team (Late st Contact Info) Description 06/30/2000 Abstract [facility] CONVERSION [address] [place] [address] , Generic Conversion, Social History Tobacco Use [...] filedocumented in this encounter Care Teams Loan Expeditor Relationship Specialty Start Date End Date Dennis Doran MD PCP - General INTERNAL MEDICINE 02/28/17 10/23/23 Joann Marquez ANP-BC [address] [place] [address] 4P57 [place] [address] [place] Client Support Manager NURSE PRACTITIONER 02/28/17 documented as of this encounter
--- OUTSIDE RECORDS SUMMARY | 2024-10-26 10:11 | XMS_ITS | Encounter Summary ---
Author Organization [facility] Address [facility]6 [facility]. [place], [place] [address] [place] [address] Care Team Providers Care Tie Binder Name Role Phone Dennis Doran MD Primary Care Provider [phone] Joann Marquez-BC Unavailable [phone] Encounter Details Date Type Department Care Team (Late st Contact Info) Description 09/30/2001 Abstract [facility] CONVERSION [address] [place] [address] , Generic Conversion, Social History Tobacco Use [...] on filedocumented in this encounter Care Teams Tie Binder Relationship Specialty Start Date End Date Dennis Doran MD PCP - General INTERNAL MEDICINE 02/28/17 10/23/23 Joann Marquez ANP-BC [address] [place] [address] 4P57 [place] [address] [place] Government Affairs Specialist NURSE PRACTITIONER 02/28/17 documented as of this encounter
--- OUTSIDE RECORDS SUMMARY | 2024-10-26 10:11 | XMS_ITS | Encounter Summary ---
Author Organization [facility] Address [facility]6 [facility]. [place], [place] [address] [place] [address] Care Team Providers Care Skating Carhop Name Role Phone Dennis Doran MD Primary Care Provider [phone] Joann Marquez-BC Unavailable [phone] Encounter Details Date Type Department Care Team (Late st Contact Info) Description 04/21/1996 Abstract [facility] CONVERSION [address] [place] [address] , Generic Conversion, Social History Tobacco Use [...] on filedocumented in this encounter Care Teams Skating Carhop Relationship Specialty Start Date End Date Dennis Doran MD PCP - General INTERNAL MEDICINE 02/28/17 10/23/23 Joann Marquez ANP-BC [address] [place] [address] 4P57 [place] [address] [place] Motivational Speaker NURSE PRACTITIONER 02/28/17 documented as of this encounter
--- OUTSIDE RECORDS SUMMARY | 2024-10-26 10:11 | XMS_ITS | Encounter Summary ---
Author Organization [facility] Address [facility]. [place], [place] [address] [place] [address] Care Team Providers Care Mogul Operator Name Role Phone Dennis Doran MD Primary Care Provider [phone] Joann Marquez-BC Unavailable [phone] Encounter Details Date Type Department Care Team (Late st Contact Info) Description 01/31/1994 Abstract [facility] CONVERSION [address] [place] [address] , Generic Conversion, Social History Tobacco Use [...] on filedocumented in this encounter Care Teams Mogul Operator Relationship Specialty Start Date End Date Dennis Doran MD PCP - General INTERNAL MEDICINE 02/28/17 10/23/23 Joann Marquez ANP-BC [address] [place] [address] 4P57 [place] [address] [place] Diesel Trailer Mechanic NURSE PRACTITIONER 02/28/17 documented as of this encounter
--- OUTSIDE RECORDS SUMMARY | 2024-10-26 10:11 | XMS_ITS | Encounter Summary ---
Author Organization [facility] Address [facility]6 [facility]. [place], [place] [address] [place] [address] Care Team Providers Care Senior Physical Therapist Name Role Phone Dennis Doran MD Primary Care Provider [phone] Joann Marquez-BC Unavailable [phone] Encounter Details Date Type Department Care Team (Late st Contact Info) Description 06/12/[address] [facility] CONVERSION [address] [place] [address] , Generic Conversion, Social History Tobacco Use [...] filedocumented in this encounter Care Teams Senior Physical Therapist Relationship Specialty Start Date End Date Dennis Doran MD PCP - General INTERNAL MEDICINE 02/28/17 10/23/23 Joann Marquez ANP-BC [address] [place] [address] 4P[address] [place] [address] [place] Converter Operator NURSE PRACTITIONER 02/28/17 documented as of this encounter
--- OUTSIDE RECORDS SUMMARY | 2024-10-26 10:11 | XMS_ITS | Encounter Summary ---
Author Organization [facility] Address [facility] [place], [place] [address] [place] [address] Care Team Providers Care Film Drying Machine Operator Name Role Phone Dennis Doran MD Primary Care Provider [phone] Joann Marquez-BC Unavailable [phone] Encounter Details Date Type Department Care Team (Late st Contact Info) Description 10/10/1994 Abstract [facility] CONVERSION [address] [place] [address] , Generic Conversion, Social History Tobacco Use [...] on filedocumented in this encounter Care Teams Film Drying Machine Operator Relationship Specialty Start Date End Date Dennis Doran MD PCP - General INTERNAL MEDICINE 02/28/17 10/23/23 Joann Marquez ANP-BC [address] [place] [address] 4P57 [place] [address] [place] Electrical Systems Engineer NURSE PRACTITIONER 02/28/17 documented as of this encounter
--- OUTSIDE RECORDS SUMMARY | 2024-10-26 10:11 | XMS_ITS | Encounter Summary ---
Author Organization [facility] Address [facility]6 [facility]. [place], [place] [address] [place] [address] Care Team Providers Care Straight Truck Driver Name Role Phone Dennis Doran MD Primary Care Provider [phone] Joann Marquez-BC Unavailable [phone] Encounter Details Date Type Department Care Team (Late st Contact Info) Description 06/18/1995 Abstract [facility] CONVERSION [address] [place] [address] , Generic Conversion, Social History Tobacco Use [...] on filedocumented in this encounter Care Teams Straight Truck Driver Relationship Specialty Start Date End Date Dennis Doran MD PCP - General INTERNAL MEDICINE 02/28/17 10/23/23 Joann Marquez ANP-BC [address] [place] [address] [address] [place] [address] [place] Intermodal Owner Operator Truck Driver NURSE PRACTITIONER 02/28/17 documented as of this encounter
--- OUTSIDE RECORDS SUMMARY | 2024-10-26 10:11 | XMS_ITS | Encounter Summary ---
Author Organization [facility] Address [facility]. [place], [place] [address] [place] [address] Care Team Providers Care Rail Transportation Operator Name Role Phone Dennis Doran MD Primary Care Provider [phone] Joann Marquez-BC Unavailable [phone] Encounter Details Date Type Department Care Team (Late st Contact Info) Description 09/28/1993 Abstract [facility] CONVERSION [address] [place] [address] , Generic Conversion, Social History Tobacco Use [...] on filedocumented in this encounter Care Teams Rail Transportation Operator Relationship Specialty Start Date End Date Dennis Doran MD PCP - General INTERNAL MEDICINE 02/28/17 10/23/23 Joann Marquez ANP-BC [address] [place] [address] 4[address] [place] [address] [place] Observer Helper NURSE PRACTITIONER 02/28/17 documented as of this encounter
--- OUTSIDE RECORDS SUMMARY | 2024-10-26 10:11 | XMS_ITS | Encounter Summary ---
Author Organization [facility] Address [facility] access hospital6 [facility]. [place], [place] [address] [place] [address] Care Team Providers Care Internal Affairs Commander Name Role Phone Dennis Doran MD Primary Care Provider [phone] Joann Marquez-BC Unavailable [phone] Encounter Details Date Type Department Care Team (Late st Contact Info) Description 12/29/1996 Abstract [facility] CONVERSION [address] [place] [address] , Generic Conversion, Social History Tobacco Use [...] on filedocumented in this encounter Care Teams Internal Affairs Commander Relationship Specialty Start Date End Date Dennis Doran MD PCP - General INTERNAL MEDICINE 02/28/17 10/23/23 Joann Marquez ANP-BC [address] [place] [address] [address] [place] [address] [place] Seat Joiner NURSE PRACTITIONER 02/28/17 documented as of this encounter
--- OUTSIDE RECORDS SUMMARY | 2024-10-26 10:11 | XMS_ITS | Encounter Summary ---
Author Organization [facility] Address [facility]6 [facility] [place]. [place], [place] [address] [place] [address] Care Team Providers Care Goat Farmer Name Role Phone Dennis Doran MD Primary Care Provider [phone] Joann Marquez-BC Unavailable [phone] Encounter Details Date Type Department Care Team (Late st Contact Info) Description 03/13/[address] [facility] CONVERSION [address] [place] [address] , Generic Conversion, Social History Tobacco Use [...] on filedocumented in this encounter Care Teams Goat Farmer Relationship Specialty Start Date End Date Dennis Doran MD PCP - General INTERNAL MEDICINE 02/28/17 10/23/23 Joann Marquez ANP-BC [address] [place] [address] [address] [place] [address] [place] Brake Lining Curer NURSE PRACTITIONER 02/28/17 documented as of this encounter
--- OUTSIDE RECORDS SUMMARY | 2024-10-26 10:11 | XMS_ITS | Encounter Summary ---
Author Organization [facility] Address [facility]6 [facility]. [place], [place] [address] [place] [address] Care Team Providers Care Environmental Issues Instructor Name Role Phone Dennis Doran MD Primary Care Provider [phone] Joann Marquez-BC Unavailable [phone] Encounter Details Date Type Department Care Team (Late st Contact Info) Description 09/28/2001 Abstract [facility] CONVERSION [address] [place] [address] , Generic Conversion, Social History Tobacco Use [...] filedocumented in this encounter Care Teams Environmental Issues Instructor Relationship Specialty Start Date End Date Dennis Doran MD PCP - General INTERNAL MEDICINE 02/28/17 10/23/23 Joann Marquez ANP-BC [address] [place] [address] [address] [place] [address] [place] Clinical Evaluator NURSE PRACTITIONER 02/28/17 documented as of this encounter
--- OUTSIDE RECORDS SUMMARY | 2024-10-26 10:38 | XMS_ITS | Clinical Summary ---
Author Organization [facility] Address [address] [place] [address] Phone Care Team Providers Care Ski Maker Wood Name Role Phone Dennis Doran MD Primary Care Provider [phone] Allergies No known active allergies Medications Medication [...] Comments Blood Pressure 120/70 09/21/2015 2:37 PM SENIOR PARTNER Pulse - - Temperature - - Respiratory Rate - - Oxygen Saturation - - Inhaled Oxygen Concentration - - Weight 86.2 kg (190 lb) 09/21/2015 2:37 PM SENIOR PARTNER Height 180.3 cm (5' 11 ) 09/21/2015 2:37 PM SENIOR PARTNER Body Mass Index 26.5 09/21/2015 2:37 PM SENIOR PARTNER Plan of Treatment Health Maintenance Due Date [...] age to complete this topic Care Teams Ski Maker Wood Relationship Specialty Start Date End Date Dennis Doran MD [address] [place] [address] PCP - General Internal Medicine 09/21/15
--- OUTSIDE RECORDS SUMMARY | 2024-10-26 10:39 | XMS_ITS | Encounter Summary ---
Author Organization [facility] Address [address] [place] [address] Care Team Providers Care Rattling Machine Tender Name Role Phone Dennis Doran MD Primary Care Provider [phone] Reason for Visit * Reason Comments Other infertility * Eval and Treat (Routine) - Closed Specialty Diagnoses / Procedures Referred By Contac t Referred To Contact Urology Diagnoses DR Dias referred from [facility], pt does not ejactulate, trying to get , no testing has been done, coventry ins thru pts work/union Procedures OFFICE VISIT NEW PATIENT Dennis Doran MD [address] [facility] [address] [place] [address] Freddy Hughes MD [address] [facility] [address] [place] [address] Referral ID Status Reason Start Date Expiration Date Visits Re quested Visits Authorized [id number] Closed 09/21/2015 09/21/2015 1 1 Encounter Details Date Type Department Care Team (Late st Contact Info) Description 09/21/2015 2:20 PM REFERENCE DATA EXPERT Office Visit [facility] [place] [address] [facility] [address] [place] [address] Freddy Hughes MD [address] [facility] [address] [place] [address] Other ejaculatory dysfunction (Primary Dx); [...] Comments Blood Pressure 120/70 09/21/2015 2:37 PM REFERENCE DATA EXPERT Pulse - - Temperature - - Respiratory Rate - - Oxygen Saturation - - Inhaled Oxygen Concentration - - Weight 86.2 kg (190 lb) 09/21/2015 2:37 PM REFERENCE DATA EXPERT Height 180.3 cm (5' 11 ) 09/21/2015 2:37 PM REFERENCE DATA EXPERT Body Mass Index 26.5 09/21/2015 2:37 PM REFERENCE DATA EXPERT documented in this encounter Progress Notes * [...] one child. They have been seen at [facility] and are considering options including IVF [...] anticoagulation. He is going to see his senior rd engineer this week as he may need angioplasty and stenting again. He will call me next week. We discussed his fertility issues as well. We discussed options including testicular biopsy if theydo proceed with IVF. 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
--- OUTSIDE RECORDS SUMMARY | 2024-10-26 23:05 | XMS_ITS | Encounter Summary ---
Author Organization [facility] Address [facility]. 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
--- OUTSIDE RECORDS SUMMARY | 2024-10-26 23:05 | XMS_ITS | Encounter Summary ---
Author Organization [facility] Address [address] [place] [address]. 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) Dyspnea on exertion Procedures NM EXER NUC STRESS TEST 1DAY Joann Marquez ANP-BC [address] [facility] [address] [place] [address] Phone: tel: fax: Referral ID Status Reason Start Date Expiration Date V isits Requested Visits Authorized [id number] Authorized 06/11/2024 06/11/2025 1 2 * Medication Prior Authorization - Closed Specialty Diagnoses / Procedures Referred By Cheyanne puentes Referred To Contact Joann Marquez ANP-BC [address] [facility] [address] [place] [address] Phone: tel: fax: Referral ID Status Reason Start Date Expiration Date Visits Re quested Visits Authorized [id number] Closed 1 1 Reason for Visit * Reason Comments Follow Up Encounter Details Date Type Department Care Team (Late st Contact Info) Description 06/11/2024 2:30 PM CDT Office Visit [facility] eld [address] [place] [address] Joann Marquez ANP-BC [address] [facility] [address] [place] [address] Follow Up Social History Tobacco [...] 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 LAUREL HANSEN, PA: Rubia Kowalski was seen on 06/11/2024 at [facility]. Orders Placed This Encounter LIPID PANEL [...] (coronary artery disease) Cancer ([facility]) Melanoma Chronic kidney disease CKD (chronic kidney disease) Colitis CVA (cerebral vascular accident) ([facility]) 2010 Diabetes ([facility]) Diabetic retinopathy ([facility]) GERD (gastroesophageal reflux disease) Glaucoma History of coronary artery stent placement 2013 Hyperlipidemia Hypertension Lumbago Myocardial infarction ([facility]) Personal history of MRSA (methicillin [...] Comments: Diagnoses/Impression: 1. 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 [...] care of Rubia Kowalski. 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 [facility] ?[address] [place], [place] ??[address] ? Test Date: ?2024-06-11 Pat Name: ? RUBIA KOWALSKI ?Department: ?? 105 ? Room: ? Gender: ? Male ? Military Communications Specialist: ?? : ?1975 ? Requested By: ABHINAV GOULD Order Number: [id number] ?Reading : ?? Abhinav Gould ? Measurements Intervals ?[place] ? Rate: ? 63 ? P: ?34 MT: ? 141 ?QRS: ?61 QRSD: ? 94 ? T: ?45 QT: ? 410 ? QTc: ?420 ? Interpretive Statements SINUS RHYTHM Possible [place], [place] Procedure Note Abhinav Gould MD - 06/12/2024 [facility] [address] [place] [address] Test Date: 2024-06-11 Pat Name: RUBIA KOWALSKI Department: 105 Room: Gender: Male Military Communications Specialist: : 1975 Requested By: ABHINAV GOULD Order Number: [id number] Reading MD: Abhinav Gould Measurements Intervals [place] Rate: 63 P: 34 MT: 141 QRS: 61 QRSD: 94 T: 45 QT: 410 QTc: 420 Interpretive Statements SINUS RHYTHM Possible [place], [place] us Abhinav Gould MD PROCEDURES-ORDERABLE NO CHARGE F inal Result [facility] documented in this encounter Visit Diagnoses Diagnosis 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
--- OUTSIDE RECORDS SUMMARY | 2024-10-26 23:05 | XMS_ITS | Encounter Summary ---
Author Organization [facility] Address [address] [place] [address]. 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 [address] [place] [address] [place] Screw Machine Setter NURSE PRACTITIONER 02/28/17 documented as of this encounter
--- OUTSIDE RECORDS SUMMARY | 2024-10-26 23:05 | XMS_ITS | Encounter Summary ---
Author Organization [facility] Address [address] [place] [address] Phone Care Team Providers Care Profiling Machine Operator Name Role Phone Dennis Doran MD Primary Care Provider [phone] Encounter Details Date Type Department Care Team (Late st Contact Info) Description 04/01/2020 10:30 AM CDT Office Visit [facility] Nephrology and Hypertension [address] [place] [address], [address] [place] [address] Seda Rajput MD [address] [facility], [address] [place] [address] Chronic kidney disease stage 3 (CMS-HCC); Diabetes [...] Lab Routine Chronic kidney disease stage 3 ([facility]) Diabetes mellitus with renal manifestations ([facility]) Hypertensive renal disease Other proteinuria 1 Occurrences starting 04/01/2020 until 04/01/2021 ANTINUCLEAR ANTIBODIES (LETY), IFA W/ REFL TITER AND PATTERN Lab Routine Chronic kidney disease stage 3 ([facility]) Diabetes mellitus with renal manifestations ([facility]) Hypertensive renal disease Other proteinuria 1 Occurrences starting 04/01/2020 until 04/01/2021 COMPLEMENT C3 + C4 Lab Routine Chronic kidney disease stage 3 ([facility]) Diabetes mellitus with renal manifestations ([facility]) Hypertensive renal disease Other proteinuria 1 Occurrences starting 04/01/2020 until 04/01/2021 DSDNA AB, SERUM Lab Routine Chronic kidney disease stage 3 ([facility]) Diabetes mellitus with renal manifestations ([facility]) Hypertensive renal disease Other proteinuria 1 Occurrences starting 04/01/2020 until 04/01/2021 GLOMERULAR BASEMENT MEMBRANE ANTIBODY (IGG), SERUM Lab Routine Chronic kidney disease stage 3 ([facility]) Diabetes mellitus with renal manifestations ([facility]) Hypertensive renal disease Other proteinuria 1 Occurrences starting 04/01/2020 until 04/01/2021 TOTAL PROTEIN W/ CREATININE, URINE, RANDOM Lab Routine Chronic kidney disease stage 3 ([facility]) Diabetes mellitus with renal manifestations ([facility]) Hypertensive renal disease Other proteinuria 1 Occurrences starting 04/01/2020 until 04/01/2021 SODIUM, URINE Lab Routine Chronic kidney disease stage 3 ([facility]) Diabetes mellitus with renal manifestations ([facility]) Hypertensive renal disease Other proteinuria 1 Occurrences starting 04/01/2020 until 04/01/2021 EOSINOPHIL, URINE Lab Routine Chronic kidney disease stage 3 ([facility]) Diabetes mellitus with renal manifestations ([facility]) Hypertensive renal disease Other proteinuria 1 Occurrences starting 04/01/2020 until 04/01/2021 PROTEIN ELECTROPHORESIS, URINE, RANDOM Lab Routine Chronic kidney disease stage 3 ([facility]) Diabetes mellitus with renal manifestations ([facility]) Hypertensive renal disease Other proteinuria 1 Occurrences starting 04/01/2020 until 04/01/2021 PROTEIN ELECTROPHORESIS, SERUM Lab Routine Chronic kidney disease stage 3 ([facility]) Diabetes mellitus with renal manifestations ([facility]) Hypertensive renal disease Other proteinuria 1 Occurrences starting 04/01/2020 until 04/01/2021 RENAL FUNCTION PANEL (RFP) Lab Routine Chronic kidney disease stage 3 ([facility]) Diabetes mellitus with renal manifestations ([facility]) Hypertensive renal disease Other proteinuria 1 Occurrences [...] LAB BLOOD ORDERAB LES Performing Organization Address City/[facility]/ZIP Co de Phone Number EXTERNAL LAB (NON-INTERFACED) * Hemoglobin A1c, Serum (02/26/2020) Hemoglobin A1c/Hemoglobin, total, Blood 8.7 % EXTERNAL LAB (NON-INTERFACE D) Blood (Blood, Venous) Historical Provider MD LAB BLOOD ORDERAB LES EXTERNAL LAB (NON-INTERFACED) * Renal Function Panel (RFP) (02/10/2019) Creatinine, Serum/Plasma 1.49 mg/dL EXTERNAL LAB (NON-INTERFACE D) Blood (Blood, Venous) Historical Provider MD LAB BLOOD ORDERAB LES Performing Organization Address [facility]/State/ZIP Co de Phone Number EXTERNAL LAB (NON-INTERFACED) documented in this encounter Visit Diagnoses Diagnosis Chronic kidney disease stage 3 ([facility]) Diabetes mellitus with renal manifestations ([facility]) Hypertensive renal disease Other proteinuria documented in this encounter Care Teams Profiling Machine Operator Relationship Specialty Start Date End Date Dennis Doran MD [address] [place] [address] PCP - General Internal Medicine 03/11/20 documented as of this encounter
--- OUTSIDE RECORDS SUMMARY | 2024-10-26 23:05 | XMS_ITS | Encounter Summary ---
Author Organization [facility] Address [address] [place] [address]. [place], [place] [address] [place] [address] Care Team Providers Care Financial Compliance Examiner Name Role Phone Joann Marquez [facility]- Unavailable [phone] Denisha Hansen Primary Care Provider [phone] Reason for Referral * Imaging (Routine) - [...] Procedures US RETROPERITONEAL LTD Yasmany Simmons MD [address] [place] [address] Phone: tel: fax: Referral ID Status Reason Start Date Expiration Date Visits Re quested Visits Authorized [id number] Closed 07/18/2024 07/18/2025 1 1 Reason for [...] Procedures US RETROPERITONEAL LTD Yasmany Simmons MD [address] [place] [address] Phone: tel: fax: Referral ID Status Reason Start Date Expiration Date Visits Re quested Visits Authorized [id number] Closed 07/18/2024 07/18/2025 1 1 Encounter Details Date Type Department Care Team (Latest Contact Info) Description 07/24/2024 1:00 PM CDT - 07/24/2024 11:59 PM CDT Hospital Encounter [facility] Ultrasound [address] [place] [address] Yasmany Simmons MD [address] [place] [address] [phone] Discharge Disposition: Home or Self Care (Routine [...] 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 [address] IMAGING STUDIES: US RETROPERITONEAL LTD DATE: 07/24/2024 [...] Procedure Note Lewis Luther MD - 07/24/2024 [place] [id number] [place] [address] IMAGING STUDIES: US RETROPERITONEAL LTD DATE: 07/24/2024 [...] diabetes mellitus with diabetic chronic kidney disease ([facility]) Type I (juvenile type) diabetes mellitus with renal manifestations, not stated as uncontrolled Chronic kidney disease, stage 4 (severe) ([facility]) documented in this encounter Care Teams Financial Compliance Examiner Relationship Specialty Start Date End Date Denisha Hansen PA [address] [place] [address] PCP - General PHYSICIAN PALLIATIVE CARE COORDINATOR 10/24/23 Joann Marquez, ANP- [address] [facility] [address] [place] [address] [place] Metal Burrer NURSE PRACTITIONER 02/28/17 documented as of this encounter
--- OUTSIDE RECORDS SUMMARY | 2024-10-26 23:05 | XMS_ITS | Encounter Summary ---
Author Organization [facility] Address [facility] 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 [address] [place] [address] Corinne Shipyard Painting Supervisor NURSE PRACTITIONER 02/28/17 documented as of this encounter
--- OUTSIDE RECORDS SUMMARY | 2024-10-26 23:05 | XMS_ITS | Clinical Summary ---
Author Organization [facility] Address [address] [place] [address] Phone Care Team Providers Care Subject Scientific Research Name Role Phone Dennis Doran MD Primary Care Provider [phone] Allergies Active Allergy Reactions Criticality Noted Date [...] 03/09/2020 Active ergocalciferol (VITAMIN D-2) 1.25 MG (10044 UT) capsule Take 50,000 Units by mouth [...] Comments Influenza Vaccine (#1) 2024 Care Teams Subject Scientific Research Relationship Specialty Start Date End Date Dennis Doran MD [address] [place] [address] PCP - General Internal Medicine 03/11/20
--- OUTSIDE RECORDS SUMMARY | 2024-10-26 23:05 | XMS_ITS | Encounter Summary ---
Author Organization [facility] Address [address] [place] [address]. [place] [address] [place] [address] Care Team Providers Care Physical Therapy Assistant Name Role Phone Ruthy Norris Unavailable Denisha Hansen Primary Care Provider [phone] Reason for Visit * Reason Onset Date Comments Refill Request 06/04/2024 Appointment Request 06/04/2024 Reschedule 06/04/2024 Encounter Details Date Type Department Care Team ([facility] st Contact Info) Description 06/04/2024 Telephone [facility] [address] [place] [address] Ruthy Norris ANP-BC [address] [facility] [address] [place] [address] Refill Request; Appointment Request; Reschedule [...] 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 PT v/u and thanked mefor my help. documented in this encounter Plan of Treatment Not on file documented as of this encounter Visit Diagnoses Not on filedocumented in this encounter Care Teams Physical Therapy Assistant Relationship Specialty Start Date End Date Denisha Hansen PA [address] [place] [address] PCP - General PHYSICIAN HISTORICAL RECORDS ADMINISTRATOR 10/24/23 Ruthy Norris ANP-BC [address] [place] [address] [address] [place] [address] [place] Bone Char Kiln Tender NURSE PRACTITIONER 02/28/17 documented as of this encounter
--- OUTSIDE RECORDS SUMMARY | 2024-10-26 23:05 | XMS_ITS | Encounter Summary ---
Author Organization [facility] - [facility] Address [facility]. 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
--- OUTSIDE RECORDS SUMMARY | 2024-10-26 23:05 | XMS_ITS | Encounter Summary ---
Author Organization [facility] Address [address] [place] [address]. 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 (CMS/HCC) Mixed [...] 83 0 - 200 01/15/2024 Joann Marquez [facility] Final Re sult * (ABNORMAL) LIPID PANEL (01/15/2024) CHOLESTEROL 195 <200 HDL 39 >or =40 TRIGLYCERIDES 263 <150 NON HDL CHOLESTEROL 156 <130 CHOL/HDL RATIO 5.0 <5.0 LDL (CALCULATED) 118 <100 01/15/2024 Joann Marquez [facility] Final Re sult documented in this encounter Visit Diagnoses Diagnosis 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
--- OUTSIDE RECORDS SUMMARY | 2024-10-26 23:05 | XMS_ITS | Encounter Summary ---
Author Organization [facility] Address [facility]. 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 Not on file Not [...] Result * THYROXINE, FREE (FT4) (01/15/2024) Pathologist [facility] FREE T4 1.1 0.8 - 1.8 01/15/2024 us Default History Genericprovider LABORATORY Final Result * TSH (OUTSIDE LAB) (01/15/2024) Pathologist [facility] TSH 1.84 0.40 - 4.50 01/15/2024 us Default History Genericprovider LAB-OUTSIDE/ABST RACTED Final Result * MAGNESIUM (OUTSIDE LAB) (01/15/2024) Pathologist [facility] MAGNESIUM 1.7 1.5 - 2.5 01/15/2024 us Default History Genericprovider LAB-OUTSIDE/ABST RACTED Final Result documented in this encounter Visit Diagnoses Not on filedocumented in this encounter Care Teams Hot Mill Roller Relationship Specialty Start Date End Date Denisha Hansen PA [facility] [place] [address] PCP - General PHYSICIAN PHARMACY TEACHER 10/24/23 Joann Marquez, ANP- [address] [facility] [address] [place] [address] [place] Driller Brake Lining NURSE PRACTITIONER 02/28/17 documented as of this encounter
--- OUTSIDE RECORDS SUMMARY | 2024-10-26 23:05 | XMS_ITS | Encounter Summary ---
Author Organization [facility] Address [facility]. 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
--- OUTSIDE RECORDS SUMMARY | 2024-10-26 23:05 | XMS_ITS | Encounter Summary ---
Author Organization [facility] - [facility] Address [facility]6 [facility]. 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
--- OUTSIDE RECORDS SUMMARY | 2024-10-26 23:05 | XMS_ITS | Encounter Summary ---
Author Organization [facility] Address [facility] 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 RUSH ARTIST TECHNICAL * Amanda Maldonado LPN - 11/19/2023 11:53 AM CST Left message for pt ot call back RUSH ARTIST TECHNICAL * Amanda Maldonado LPN - 11/16/2023 1:22 PM CST Left message for pt to call back RUSH ARTIST TECHNICAL * MARIO Mendenhall - 11/09/2023 5:17 PM [...] continue amlodipine, isosorbide and carvedilol without interruption. RUSH ARTIST TECHNICAL documented in this encounter Plan of Treatment Not on file documented as of this encounter Visit Diagnoses Not on filedocumented in this encounter Care Teams Fireman Helper Relationship Specialty Start Date End Date Denisha Hansen PA [address] [place] [address] PCP - General PHYSICIAN ANIMAL NURSERY WORKER 10/24/23 Joann Marquez, [facility]- [address] [facility][1] [address] [phone] [place] [facility] Anaesthetist NURSE PRACTITIONER 02/28/17 documented as of this encounter
--- OUTSIDE RECORDS SUMMARY | 2024-10-26 23:05 | XMS_ITS | Encounter Summary ---
Author Organization [facility] Address [facility] 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 documented in this encounter Plan of Treatment Not on file documented as of this encounter Visit Diagnoses Not on filedocumented in this encounter Care Teams Clean Room Technician Relationship Specialty Start Date End Date Denisha Hansen PA [address] [place] [address] PCP - General PHYSICIAN ACCOUNT SERVICES ASSOCIATE 10/24/23 Joann Marquez, ANP- [address] [facility] [address] [place] [address] [place] Security Test Engineer NURSE PRACTITIONER 02/28/17 documented as of this encounter
--- OUTSIDE RECORDS SUMMARY | 2024-10-26 23:05 | XMS_ITS | Encounter Summary ---
Author Organization [facility] Address [address] [place] [address]. [address] [address] Care Team Providers Care Strip Cutting Machine Operator Name Role Phone Joann Marquez Bernard [facility]- Unavailable [phone] Denisha Hansen Primary Care Provider [phone] Reason for Referral * Imaging (Routine) - Closed Specialty Diagnoses / Procedures Referred By Contac t Referred To Contact RADIOLOGY Diagnoses Dyspnea, unspecified Other abnormalities of breathing Chronic obstructive pulmonary disease, unspecified ([facility] HHS/HCC) Procedures CT CHEST WO Denisha Liu PA [address] [place] [address] Phone: tel: fax: Referral ID Status Reason Start Date Expiration Date Visits Re quested Visits Authorized [id number] Closed 12/06/2023 03/05/2024 1 1 LAR STOCK GLASS BULB MACHINE FORMER Reason for Visit * Imaging (Routine) - Closed Specialty Diagnoses / Procedures Referred By Contac t Referred To Contact RADIOLOGY Diagnoses Dyspnea, unspecified Other abnormalities of breathing Chronic obstructive pulmonary disease, unspecified ([facility] HHS/HCC) Procedures CT CHEST WO Denisha Liu PA [address] [place] [address] Phone: tel: fax: Referral ID Status Reason Start Date Expiration Date Visits Re quested Visits Authorized [id number] Closed 12/06/2023 03/05/2024 1 1 Encounter Details Date Type Department Care Team (Latest Contact Info) Description 12/18/2023 1:21 PM TUBULAR STOCK GLASS BULB MACHINE FORMER - 12/18/2023 11:59 PM TUBULAR STOCK GLASS BULB MACHINE FOR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 10/28/2021 06/11/20 documented as of this encounter Plan of Treatment Not on file documented as of this encounter Procedures Procedure Name Priority Date/Time Associated Diagnosis Comments CT CHEST WO CON Routine 12/18/2023 1:32 PM TUBULAR STOCK GLASS BULB MACHINE FORMER Dyspnea, unspecified Other abnormalities of breathing Chronic obstructive pulmonary disease, unspecified ([facility]) documented in this encounter Results * CT CHEST WO CON (12/18/2023 1:32 PM TUBULAR STOCK GLASS BULB MACHINE FORMER) Anatomical Region Laterality Modality Chest Computed Tomogra phy 12/19/2023 5:48 AM TUBULAR STOCK GLASS BULB MACHINE FORMER Impressions 12/19/2023 5:56 AM TUBULAR STOCK GLASS BULB MACHINE FORMER IMPRESSION: 1. ??No evidence of infiltrate or effusion.. ??Mild emphysematous change. 2. ??No pathologic pulmonary nodules. ??Stable nonpathologic sized mediastinal lymph nodes.. 3. ??Advanced coronary artery calcifications with stents. Referred By: DENISHA HANSEN Interpreted By: Lewis Luther MD, 12/19/2023 5:48 AM Narrative 12/19/2023 5:56 AM TUBULAR STOCK GLASS BULB MACHINE FORMER EXAMINATION: CT CHEST WITHOUT CONTRAST EXAM DATE/TIME: [...] HHS/HCC) documented in this encounter Care Teams Strip Cutting Machine Operator Relationship Specialty Start Date End Date Denisha Hansen PA [address] [place] [address] PCP - General PHYSICIAN ROLLER STRUCTURAL MILL 10/24/23 Joann Marquez, ANP-BC [address] [facility] [address] [place] [address] [place] Transition Social Worker NURSE PRACTITIONER 02/28/17 documented as of this encounter
--- OUTSIDE RECORDS SUMMARY | 2024-10-26 23:05 | XMS_ITS | Encounter Summary ---
Author Organization [facility] Address [facility] [facility] 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 * Shiloh Marshall - 01/28/2024 10:49 AM CDT Labs received from [employer], sent to be abstracted. documented in this encounter Plan of Treatment Not on file documented as of this encounter Visit Diagnoses Not on filedocumented in this encounter Care Teams Cab Driver Relationship Specialty Start Date End Date Denisha Hansen PA [address] [place] [address] PCP - General PHYSICIAN APARTMENT ASSISTANT MANAGER 10/24/23 Joann Marquez, ANP- [address] [facility] [address] [place] [address] [employer] Executive NURSE PRACTITIONER 02/28/17 documented as of this encounter
--- OUTSIDE RECORDS SUMMARY | 2024-10-26 23:05 | XMS_ITS | Encounter Summary ---
Author Organization [facility] Address [address] [place] [address]. [place] [address] [place] [address] Care Team Providers Care Civilian Technician Name Role Phone Joann Norris-BC Unavailable [phone] Denisha Hansen Primary Care Provider [phone] Reason for Visit * Reason Onset Date Comments Lab Order 11/30/2023 Encounter Details Date Type Department Care Team ([facility] st Contact Info) Description 11/30/2023 Telephone [facility] [address] [place] [address] Joann Norris, AURELIANO-ERICA [address] [facility] [address] [place] [address] Lab Order Social History Tobacco [...] 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 * Mayra Salamanca [...] 2:05 PM CDT Spoke with Swapna at [facility] office , no other labs were drawn [...] 01/10/2024 2:29 PM CDT Labs received from [facility], sent to be abstracted. * Sonny Maldonado LPN - 01/10/2024 9:52 AM CDT Pt has appt now with his pcp orders faxed to [facility]onel at [phone] * Sonny Maldonado LPN - 01/02/2024 1:09 PM CDT Called pt to see if labs have been done . And he states no not a lipid barrientos but he feels like other labs were done at [facility] in [facility]. He sees his pcp on 01-08-24 and he will have jose guadalupe lab work faxed to our office fax number [phone] given to the pt. * Sonny Maldonado LPN - 12/26/2023 8:33 AM CST Left message for pt to call back. PROCESSING SPECIALIST * Anju Oneal LPN - 12/11/2023 2:55 PM CST Lab orders and reminder letter printed and mailed to patient's home. Will check status again. PROCESSING SPECIALIST * Mayra Salamanca LPN - 12/10/2023 12:55 PM CST Left message for patient to return call, checking to see if labs have been completed . PROCESSING SPECIALIST * Mayra Salamanca LPN - 12/07/2023 9:25 AM CST Left message for patient to return call, checking to see if labs have been completed . PROCESSING SPECIALIST * Sonny Maldonado LPN - 11/30/2023 9:27 AM CST Left pt a message to have lab work done. PROCESSING SPECIALIST * Sonny Maldonado LPN - 11/30/2023 9:27 AM CST ----- Message from MARIO Mendenhall sent at 11/06/2023 9:45 AM DATA PROCESSING SPECIALIST ----- Regarding: CBC, CMP, Lipid- pt plans to have done late october PROCESSING SPECIALIST documented in this encounter Plan of Treatment Not on file documented as of this encounter Visit Diagnoses Diagnosis Mixed hyperlipidemia- Primary documented in this encounter Care Teams Civilian Technician Relationship Specialty Start Date End Date Denisha Hansen PA [address] [place] [address] PCP - General PHYSICIAN NUTRITIONAL YEAST SUPERVISOR 10/24/23 Joann Norris ANP-BC [address] [facility] [address] [place] [address] [place] Nuclear Equipment Sales Engineer NURSE PRACTITIONER 02/28/17 documented as of this encounter
--- OUTSIDE RECORDS SUMMARY | 2024-10-26 23:05 | XMS_ITS | Clinical Summary ---
Author Organization [facility] Address [address] [place] [address]. [place], [place] [address] [place] [address] Care Team Providers Care Air Control Electronics Operator Name Role Phone Jimmy Joann Wagner [facility]- Unavailable [phone] Denisha Hansen Primary Care Provider [phone] Allergies Active Allergy Reactions Criticality Noted Date [...] Chest pain 05/21/2018 CVA (cerebral vascular accident) ([facility] HHS/HC C) 10/22/2009 CAD (coronary artery disease) Diabetic retinopathy (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 ??No evidence of infiltrate or effusion.. ??Mild emphysematous change. 2. ??No pathologic pulmonary nodules. ??Stable nonpathologic sized mediastinal lymph nodes.. 3. ??Advanced coronary artery calcifications with stents. Referred By: DENISHA HANSEN Interpreted By: Lewis Luther MD, 12/19/2023 5:48 AM Narrative 12/19/2023 5:56 AM FARMWORKER PULLET FARM EXAMINATION: CT CHEST WITHOUT CONTRAST EXAM DATE/TIME: [...] Most Recently Relevant to Health Maintenance Insurance [facility] Advance Directives * Full Code (Latest Code Status on File) Date Activated Date Inactivated Comments 05/21/2018 4:55 PM 05/22/2018 6:02 PM Care Teams Air Control Electronics Operator Relationship Specialty Start Date End Date Denisha Hansen PA [address] [place] [address] PCP - General PHYSICIAN DENTAL ASSISTING INSTRUCTOR 10/24/23 Joann Marquez, [facility]- [address] [facility] [address] [place] [address] [place] Textile Examiner NURSE PRACTITIONER 02/28/17
--- OUTSIDE RECORDS SUMMARY | 2024-10-26 23:05 | XMS_ITS | Encounter Summary ---
Author Organization [facility] Address [address] [place] [address] Phone Care Team Providers Care Quarrying Specialist Name Role Phone Dennis Doran MD Primary Care Provider [phone] Encounter Details Date Type Department Care Team (Late st Contact Info) Description 05/08/2022 Telephone [facility] Nephrology and Hypertension [address] [facility], [address] [place] [address] Megan Alanis RN Social History Tobacco Use [...] on filedocumented in this encounter Care Teams Quarrying Specialist Relationship Specialty Start Date End Date Dennis Doran MD [address] [place] [phone] PCP - General Internal Medicine 03/11/20 documented as of this encounter
--- OUTSIDE RECORDS SUMMARY | 2024-10-26 23:05 | XMS_ITS | Encounter Summary ---
Author Organization [facility] Address [address] [place] [address]. 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
--- OUTSIDE RECORDS SUMMARY | 2024-10-26 23:05 | XMS_ITS | Encounter Summary ---
Author Organization [facility] Address [address] [place] [address]. [place], [place] [address] [place] [address] Care Team Providers Care Bottom Filler Name Role Phone Joann Marquez [facility]- Unavailable [phone] Denisha Hansen Primary Care Provider [phone] Reason for Referral * Imaging (Emergency) - Closed Specialty Diagnoses / Procedures Referred By Cheyanne puentes Referred To Contact RADIOLOGY Diagnoses Other specified disorders of the male genital organs Procedures US TESTICULAR W DOPPLER Enriqueta Villasenor FNP [address] [place] [address] Phone: tel: fax: Referral ID Status Reason Start Date Expiration Date Visits Re quested Visits Authorized [id number] Closed 01/22/2024 02/20/2025 1 1 Reason for Visit * Imaging (Emergency) - Closed Specialty Diagnoses / Procedures Referred By Cheyanne puentes Referred To Contact RADIOLOGY Diagnoses Other specified disorders of the male genital organs Procedures US TESTICULAR W DOPPLER Enriqueta Villasenor FNP [address] [place] [address] Phone: tel: fax: Referral ID Status Reason Start Date Expiration Date Visits Re quested Visits Authorized [id number] Closed 01/22/2024 02/20/2025 1 1 Encounter Details Date Type Department Care Team (Latest Contact Info) Description 01/22/2024 2:40 PM CDT - 01/22/2024 11:59 PM CDT Hospital Encounter 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 Not on file [...] 1 11/02/2021 06/04/20 24 vitamin D2, ergocalciferol, 09978 UNITS capsule Take 50,000 Units by mouth [...] Luther, 01/22/2024 4:09 PM us Enriqueta Villasenor COLLATERAL CLERK ULTRASOUND Final Resul t documented in this encounter Visit Diagnoses Diagnosis Other specified disorders of the male genital organs documented in this encounter Care Teams Bottom Filler Relationship Specialty Start Date End Date Denisha Hansen PA [address] [place] [address] PCP - General PHYSICIAN FISH HOUSE WORKER 10/24/23 Joann Marquez, ANP- [address] [facility] [address] [place] [address] [place] Escalator Mechanic NURSE PRACTITIONER 02/28/17 documented as of this encounter
--- OUTSIDE RECORDS SUMMARY | 2024-10-26 23:05 | XMS_ITS | Encounter Summary ---
Author Organization [facility] Address [facility] [facility] [place] [address] [place] [address] Care Team Providers Care Customs Officer Name Role Phone Joann Marquez-BC Unavailable Denisha Hansen Primary Care Provider [phone] Reason for Visit * Reason Onset Date Comments Prior Authorization 06/24/2024 Encounter Details Date Type Department Care Team ([facility] st Contact Info) Description 06/24/2024 Telephone [facility] [place] [facility] [address] [place] [address] Joann Marquez, AURELIANO-BC [address] 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 documented in this encounter Plan of Treatment Not on file documented as of this encounter Visit Diagnoses Not on filedocumented in this encounter Care Teams Customs Officer Relationship Specialty Start Date End Date Denisha Hansen PA [address] [place] [address] PCP - General PHYSICIAN SANITATION TRUCK DRIVER 10/24/23 Joann Marquez, ANP- [address] [facility] [address] [place] [address] [place] Traffic Officer NURSE PRACTITIONER 02/28/17 documented as of this encounter
--- OUTSIDE RECORDS SUMMARY | 2024-10-26 23:05 | XMS_ITS | Encounter Summary ---
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 (CMS-HCC) Other proteinuria Procedures Ultrasound renal complete Seda Rajput MD [address] [facility], [address] [place] [address] Referral ID Status Reason Start Date Expiration Date Visits Re quested Visits Authorized [id number] Closed 05/10/2022 11/06/2022 1 1 Encounter Details Date Type Department Care Team (Late st Contact Info) Description 05/10/2022 10:45 AM CDT Office Visit [facility]ph[facility] [address] [facility] [address], [address] [place] [address] Sdea Rajput MD [address] [facility], [address] [place] [address] Chronic kidney disease stage 4 [...] Medications: ??? ergocalciferol (VITAMIN D-2) 1.25 MG (71240 UT) capsule, Take 50,000 Units by mouth [...] , Rfl: ??? Continuous Blood Gluc Sensor (Zahroof ValvesStyle Mita 2 Sensor) [facility], USE DIRECTED TO CHECK FOUR TIMES DAILY, [...] Imaging Routine Chronic kidney disease stage 4 ([facility]) Benign hypertension with chronic kidney disease Diabetes mellitus with renal manifestations ([facility]) Other proteinuria Expected: 06/10/2022 (Approximate), Expires: 05/10/2023 Renal Function Panel (RFP) Lab Routine Chronic kidney disease stage 4 ([facility]) Benign hypertension with chronic kidney disease Diabetes mellitus with renal manifestations ([facility]) Other proteinuria 1 Occurrences starting 05/10/2022 until 05/10/2023 Total Protein w/ Creatinine, Urine, Random Lab Routine Chronic kidney disease stage 4 ([facility]) Benign hypertension with chronic kidney disease Diabetes mellitus with renal manifestations ([facility]) Other proteinuria 1 Occurrences starting 05/10/2022 until 05/10/2023 PTH Intact w/o Calcium, Serum Lab Routine Chronic kidney disease stage 4 ([facility]) Benign hypertension with chronic kidney disease Diabetes mellitus with renal manifestations ([facility]) Other proteinuria 1 Occurrences starting 05/10/2022 until 05/10/2023 Protein Electrophoresis, Serum Lab Routine Chronic kidney disease stage 4 ([facility]) Benign hypertension with chronic kidney disease Diabetes mellitus with renal manifestations ([facility]) Other proteinuria 1 Occurrences starting 05/10/2022 until 05/10/2023 Protein Electrophoresis, Urine, Random Lab Routine Chronic kidney disease stage 4 ([facility]) Benign hypertension with chronic kidney disease Diabetes mellitus with renal manifestations ([facility]) Other proteinuria 1 Occurrences starting 05/10/2022 until 05/10/2023 QuestAssureD? ? 25-Hydroxyvitamin D (D2, D3) Lab Routine Chronic kidney disease stage 4 ([facility]) Benign hypertension with chronic kidney disease Diabetes mellitus with renal manifestations ([facility]) Other proteinuria 1 Occurrences starting 05/10/2022 until 05/10/2023 Sodium, Urine Lab Routine Chronic kidney disease stage 4 ([facility]) Benign hypertension with chronic kidney disease Diabetes mellitus with renal manifestations ([facility]) Other proteinuria 1 Occurrences starting 05/10/2022 until 05/10/2023 dsDNA AB, Serum Lab Routine Chronic kidney disease stage 4 ([facility]) Benign hypertension with chronic kidney disease Diabetes mellitus with renal manifestations ([facility]) Other proteinuria 1 Occurrences starting 05/10/2022 until 05/10/2023 ANCA Screen w/ MPO and PR3 w/ Reflex to Titer Lab Routine Chronic kidney disease stage 4 ([facility]) Benign hypertension with chronic kidney disease Diabetes mellitus with renal manifestations ([facility]) Other proteinuria 1 Occurrences starting 05/10/2022 until 05/10/2023 Antinuclear Antibodies (LETY), IFA w/ Refl Titer and Pattern Lab Routine Chronic kidney disease stage 4 ([facility]) Benign hypertension with chronic kidney disease Diabetes mellitus with renal manifestations ([facility]) Other proteinuria 1 Occurrences starting 05/10/2022 until 05/10/2023 Complement C3 + C4 Lab Routine Chronic kidney disease stage 4 ([facility]) Benign hypertension with chronic kidney disease Diabetes mellitus with renal manifestations ([facility]) Other proteinuria 1 Occurrences starting 05/10/2022 until 05/10/2023 Glomerular Basement Membrane Antibody (IGG), Serum Lab Routine Chronic kidney disease stage 4 (CMS-HCC) Benign hypertension with chronic kidney disease Diabetes mellitus with renal manifestations ([facility]) Other proteinuria 1 Occurrences starting 05/10/2022 [...] ORDERAB LES Performing Organization Address [facility] Co de Phone Number EXTERNAL LAB (NON-INTERFACED) * Renal Function Panel (RFP) (01/06/2022) Creatinine, Serum/Plasma 2.29 mg/dL EXTERNAL LAB (NON-INTERFACE D) Blood (Blood, Venous) Historical Provider MD LAB BLOOD ORDERAB LES Performing Organization Address [facility] de Phone Number EXTERNAL LAB (NON-INTERFACED) * Renal Function Panel (RFP) (10/28/2021) Creatinine, Serum/Plasma 2.29 mg/dL EXTERNAL LAB (NON-INTERFACE D) Blood (Blood, Venous) Historical Provider MD LAB BLOOD ORDERAB LES Performing Organization Address [facility] de Phone Number EXTERNAL LAB (NON-INTERFACED) * Albumin/Creatinine Ratio, Random, Urine (09/20/2021) Albumin/Creatin ine, Urine 4,070 EXTERNAL LAB (NON-INTERFACE D) Urine (Urine, Clean Catch) Historical Provider MD LAB URINE ORDERAB LES Performing Organization Address [facility] Co de Phone Number EXTERNAL LAB (NON-INTERFACED) * Renal Function Panel (RFP) (09/20/2021) Creatinine, Serum/Plasma 2.0 mg/dL EXTERNAL LAB (NON-INTERFACE D) Blood (Blood, Venous) Historical Provider MD LAB BLOOD ORDERAB LES Performing Organization Address [facility] Co de Phone Number EXTERNAL LAB (NON-INTERFACED) documented in this encounter Visit Diagnoses Diagnosis Chronic kidney disease stage 4 (CMS-HCC) Benign hypertension with chronic kidney disease Diabetes mellitus with renal manifestations (CMS-HCC) Other proteinuria documented in this encounter Care Teams Tape Coater Relationship Specialty Start Date End Date Dennis Doran MD [address] [place] [id number] PCP - General Internal Medicine 03/11/20 documented as of this encounter
--- OUTSIDE RECORDS SUMMARY | 2024-10-26 23:06 | XMS_ITS | Encounter Summary ---
Author Organization [facility] Address [facility] [facility] [place] [address] [place] [address] Care Team Providers Care Drilling Contractor Name Role Phone Dennis Doran MD Primary Care Provider [phone] Joann Marquez Unavailable Reason for Visit * Reason Onset Date Comments Follow Up Call 03/01/2021 Encounter Details Date Type Department Care Team ([facility] st Contact Info) Description 03/01/2021 Telephone [facility] [address] [place] [address] Joann Marquez ANP-ERICA [address] [facility] [address] [place] [address] Follow Up Call Social History [...] on filedocumented in this encounter Care Teams Drilling Contractor Relationship Specialty Start Date End Date Dennis Doran MD PCP - General INTERNAL MEDICINE 02/28/17 10/23/23 Joann Marquez ANP- [address] [address] Pace Classifier Tender NURSE PRACTITIONER 02/28/17 documented as of this encounter
--- OUTSIDE RECORDS SUMMARY | 2024-10-26 23:06 | XMS_ITS | Encounter Summary ---
Author Organization [facility] Address [facility] [facility] 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 No / Unsure 10/28/2021 11:15 AM HOTHOUSE WORKER documented as of this encounter Progress Notes * Brooke Reyna RN - 11/02/2021 1:34 PM CST Patient called requesting a refill on his nitro. He states he forgot to ask Marlys to refill when he was on the phone with office. Will e-scribe 1 bottle with 1 refill OUSE WORKER documented in this encounter Plan of Treatment Not on file documented as of this encounter Visit Diagnoses Not on filedocumented in this encounter Care Teams Ledger Clerk Relationship Specialty Start Date End Date Dennis Doran MD PCP - General INTERNAL MEDICINE 02/28/17 10/23/23 Joann Marquez ANP- [address] [facility] [address] [place] [address] [place] Bellmaker NURSE PRACTITIONER 02/28/17 documented as of this encounter
--- OUTSIDE RECORDS SUMMARY | 2024-10-26 23:06 | XMS_ITS | Encounter Summary ---
Author Organization [facility] Address [address] [place] [address]. 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
--- OUTSIDE RECORDS SUMMARY | 2024-10-26 23:06 | XMS_ITS | Encounter Summary ---
Author Organization [facility] Address [address] [place] [address]. [place], [place] [address] [place] [address] Care Team Providers Care Station Helper Name Role Phone Dennis Doran MD Primary Care Provider [phone] Joann Marquez [facility]- Unavailable [phone] Reason for Visit * Reason Onset Date Comments Information 02/20/2020 [employer] Educatio n Encounter Details Date Type Department Care Team (Late st Contact Info) Description 02/20/2020 Telephone [facility] [address] [place] [address] Ami Pearson I, RN Information ([employer]) Social History Tobacco Use Types Packs/Day [...] 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 Call back number given [phone] Ext [phone]. Link sent as well. documented in this encounter Plan of Treatment Not on file documented as of this encounter Visit Diagnoses Not on filedocumented in this encounter Care Teams Station Helper Relationship Specialty Start Date End Date Dennis Doran MD PCP - General INTERNAL MEDICINE 02/28/17 10/23/23 Joann Marquez, ANP- [address] [facility] [address] [place] [address] [place] Sand Buffer NURSE PRACTITIONER 02/28/17 documented as of this encounter
--- OUTSIDE RECORDS SUMMARY | 2024-10-26 23:06 | XMS_ITS | Encounter Summary ---
Author Organization [facility] Address [address] [place] [address]. 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 Yes 11/07/2021 3:01 PM GRANITE FABRICATOR documented as of this encounter Progress Notes * Adilson Lnud RN - 11/10/2021 12:50 PM CST Called pt, scheduled nuclear stress test for 11/30/21 at 1200, PHI. Instruction letter mailed. Pt to hold carvedilol the night before and morning of test. He agrees with time and date of test, V/U of all instructions Letter mailed Remind Me set ITE FABRICATOR documented in this encounter Plan of Treatment Not on file documented as of this encounter Visit Diagnoses Not on filedocumented in this encounter Care Teams Advertising Teacher Relationship Specialty Start Date End Date Dennis Doran MD PCP - General INTERNAL MEDICINE 02/28/17 10/23/23 Joann Marquez ANP- [address] [facility] [address] [place] [address] [place] Certified Technician NURSE PRACTITIONER 02/28/17 documented as of this encounter
--- OUTSIDE RECORDS SUMMARY | 2024-10-26 23:06 | XMS_ITS | Encounter Summary ---
Author Organization [facility] Address [address] [place] [address]. [place], [place] [address] [place] [address] Care Team Providers Care Special Investigation Unit Investigator Name Role Phone Dennis Doran MD Primary Care Provider [phone] Joann Marquez Unavailable [phone] Reason for Referral * Procedure (Routine) - Closed Specialty Diagnoses / Procedures Referred By Contnikkie t Referred To Contact Diagnoses Persistent atrial fibrillation ([facility]) CAD (coronary artery disease) Procedures Cardiology Stress Test Only, Exercise [facility] [address] [place] [address] Phone: tel: Referral ID Status Reason Start Date Expiration Date Visits Re quested Visits Authorized [id number] Closed 12/02/2021 12/30/2022 1 1 IMEDIA EDUCATIONAL SPECIALIST Reason for Visit * Imaging (Routine) - Closed Specialty Diagnoses / Procedures Referred By Contnikkie puentes Referred To Contact RADIOLOGY Diagnoses Coronary artery disease of [place] artery of [place] heart with stable angina pectoris ([facility]) Procedures NM PHARM NUC STRESS TEST 2DAY NM EXER NUC STRESS TEST 1DAY Joann Marquez ANP-BC [address] [facility] [address] [place] [address] Phone: tel: fax: Referral ID Status Reason Start Date Expiration Date Visits Re quested Visits Authorized [id number] Closed 11/08/2021 12/09/2022 1 2 Encounter Details Date Type Department Care Team (Latest Contact Info) Description 12/02/2021 9:23 AM MULTIMEDIA EDUCATIONAL SPECIALIST - 12/02/2021 11:59 PM MULTIMEDIA EDUCATIONAL SPECIALIST Hospital Encounter [facility] [address] [place] [address] Joann Marquez, ANP-BC [address] [facility] [address] [place] [phone] Discharge Disposition: Home or Self Care (Routine [...] 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 No / Unsure 12/02/2021 9:21 AM MULTIMEDIA EDUCATIONAL SPECIALIST documented as of this encounter Medications at [...] Active 02/23/2014 12/21/19 22 vitamin D2, ergocalciferol, 00486 UNITS capsule Take 50,000 Units by mouth once a week. 10/28/2021 06/11/20 24 documented as of this encounter Plan of Treatment Not on file documented as of this encounter Procedures Procedure Name Priority Date/Time Associated Diagnosis Comments NM PHARM NUC STRESS TEST 2DAY W TRACING Routine 12/02/2021 11:16 AM MULTIMEDIA EDUCATIONAL SPECIALIST Coronary artery disease of [place] artery of [place] heart with stable angina pectoris CARDIOLOGY STRESS TEST ONLY, EXERCISE Routine 12/02/2021 9:30 AM MULTIMEDIA EDUCATIONAL SPECIALIST Persistent atrial fibrillation ([facility]) CAD (coronary artery disease) documented in this encounter Visit Diagnoses Diagnosis Persistent atrial fibrillation ([facility])- Primary Atrial fibrillation CAD (coronary artery disease) Coronary atherosclerosis of unspecified type of vessel, [place] or graft documented in this encounter Administered Medications Inactive Administered Medications - up to 3 most recent administrations Medication Order MAR Action Action Date Dose Rate Site regadenoson (LEXISCAN) injection 0.4 mg 0.4 mg, Intravenous, Once, 1 dose, On Sun12/02/21 at 1000, Administer over 10 seconds Given 12/02/2021 9:43 AM MULTIMEDIA EDUCATIONAL SPECIALIST 0.4 mg documented in this encounter Care Teams Special Investigation Unit Investigator Relationship Specialty Start Date End Date Dennis Doran MD PCP - General INTERNAL MEDICINE 02/28/17 10/23/23 Joann Marquez, [facility]- [address] [facility] [address] [place] [address] [place] [address] Clock Smith NURSE PRACTITIONER 02/28/17 documented as of this encounter
--- OUTSIDE RECORDS SUMMARY | 2024-10-26 23:06 | XMS_ITS | Encounter Summary ---
Author Organization [facility] Address [address] [place] [address]. 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 No / Unsure 12/19/2021 10:29 AM TOOL AND DIE MAKER APPRENTICE documented as of this encounter Plan of Treatment Not on file documented as of this encounter Results * PRE-SURGICAL/PRE-PROCEDURE CORONAVIRUS (COVID 19) (01/06/2022 11:51 AM CDT) SPEC DESCRIPTION NASAL 01/07/20 11:48 AM CDT [facility] CORONAVIRUS SARS COV 2 PCR (RESP) NEGATIVE NEGATIVE 01/07/2022 2:32 PM CDT [facility] Comment: THE SARS-CoV-2 TEST HAS BEEN AUTHORIZED BY THE FDA UNDER AN EUA FOR USE BY AUTHORIZED LABORATORIES. PERFORMED BY NUCLEIC ACID AMPLIFICATION PCR FIRST TEST UNKNOWN 01/06/2022 11:48 AM CDT [facility] EMPLOYED IN HEALTHCARE NO 01/06/2022 11:48 AM CDT [facility] SYMPTOMATIC DEFINED BY CDC UNKNOWN 01/06/2022 11:48 AM CDT [facility] HOSPITALIZATION STATUS NO 01/06/2022 11:48 AM CDT [facility] RESIDENT OF [facility] NO 01/06/2022 11:48 AM CDT [facility] NASAL STRUCTURE / Unknown 01/06/2022 11:51 AM CDT Nima Hollis MD MICROBIOLOGY - GENERAL ORDERAB LES Final Result Performing Organization Address [facility]/State/ZIP Co de Phone Number [address] [address], [facility] [address] [place] [address], documented in this encounter Visit Diagnoses Diagnosis Pre-operative laboratory examination- Primary Pre-procedural laboratory examination documented in this encounter Care Teams Benefits Clerk Relationship Specialty Start Date End Date Dennis Doran MD PCP - General INTERNAL MEDICINE 02/28/17 10/23/23 Joann Marquez ANP- [address] [phone] [place] Earth Science Technical Officer NURSE PRACTITIONER 02/28/17 documented as of this encounter
--- OUTSIDE RECORDS SUMMARY | 2024-10-26 23:06 | XMS_ITS | Encounter Summary ---
Author Organization [facility] Address [address] [place] [address]. 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
--- OUTSIDE RECORDS SUMMARY | 2024-10-26 23:06 | XMS_ITS | Encounter Summary ---
Author Organization [facility] Address [facility]. 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
--- OUTSIDE RECORDS SUMMARY | 2024-10-26 23:06 | XMS_ITS | Encounter Summary ---
Author Organization [facility] Address [address] [place] [address]. 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 Yes 11/07/2021 3:01 PM HOSPITAL COORDINATOR documented as of this encounter Plan of Treatment Not on file documented as of this encounter Procedures Procedure Name Priority Date/Time Associated Diagnosis Comments D-DIMER, QUANTITATIVE Routine 10/17/2021 TROPONIN WHOLE BLOOD Routine 09/20/2021 COMPREHENSIVE METABOLIC PANEL Routine 09/20/2021 CBC W/DIFF AUTOMATED Routine 09/20/2021 documented in this encounter Results * D-DIMER, QUANTITATIVE (10/17/2021) Pathologist [facility] D-DIMER 0.47 10/17/2021 us Doc [facility] Abstract LABORATORY Final Result * TROPONIN WHOLE BLOOD (09/20/2021) [facility] TROPONIN T 8 <23 09/20/2021 us Doc [facility] Abstract LABORATORY Final Result * CBC W/DIFF AUTOMATED (09/20/2021) [facility] WBC 7.8 RBC 4.45 HGB 13.4 HCT 40.4 MCV 90.8 MCH 30.1 MCHC 33.2 RDW 13.8 PLT 214 NEUTROPHILS % 70.6 LYMPHOCYTES % 17.1 MONOCYTES % 5.6 EOSINOPHILS % 5.4 BASOPHILS % 1.3 ABS. NEUTROPHILS 5,507 ABS. LYMPHOCYTES 1,334 ABS. MONOCYTES 437 ABS. BASOPHILS 101 09/20/2021 us Doc [facility] Abstract LABORATORY Final Result * (ABNORMAL) COMPREHENSIVE METABOLIC PANEL (09/20/2021) Pathologist [facility] SODIUM S/P/B 138 POTASSIUM S/P/B 4.2 CO2 [...] documented as of this encounter Care Teams Family Physician Relationship Specialty Start Date End Date Dennis Doran MD PCP - General INTERNAL MEDICINE 02/28/17 10/23/23 Denisha Hansen PA [address] [place] [id number] PCP - General PHYSICIAN GIMP TACKER 10/24/23 Joann Marquez, ANP-BC [address] [facility] [address] [place] [phone] [place] [facility] Coordinator NURSE PRACTITIONER 02/28/17 documented as of this encounter
--- OUTSIDE RECORDS SUMMARY | 2024-10-26 23:06 | XMS_ITS | Encounter Summary ---
Author Organization [facility] Address [address] [place] [address]. [place], [place] [address] [place] [address] Care Team Providers Care Purification Supervisor Name Role Phone Dennis Doran MD Primary Care Provider [phone] [facility]- Unavailable [phone] Reason for Referral * Imaging (Routine) - Closed Specialty Diagnoses / Procedures Referred By Cheyanne puentes Referred To Contact RADIOLOGY Diagnoses Abnormal cardiovascular stress test Procedures [facility] Nima Hollis MD [address] [place] [address] Phone: tel: fax: Referral ID Status Reason Start Date Expiration Date Visits Re quested Visits Authorized [id number] Closed 01/03/2022 04/05/2022 1 1 HETIC FILAMENT EXTRUDER Encounter Details Date Type Department Care Team (Late st Contact Info) Description 12/21/2021 Orders Only [facility] [address] [place] [phone] Nima Hollis MD [address] [place] [address] Social History Tobacco Use Types [...] 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 No / Unsure 12/19/2021 10:29 AM SYNTHETIC FILAMENT EXTRUDER documented as of this encounter Plan of Treatment Not on file documented as of this encounter Results * [facility] (01/09/2022 10:12 AM CDT) Anatomical Region Laterality Modality Cardiac Boilermaker Ship 01/09/2022 9:30 AM CDT Nima Hollis MD TWISTING OPERATOR Final Result * (ABNORMAL) BASIC METABOLIC PANEL (01/06/2022 11:51 AM CDT) [facility] GLUCOSE 157(H) 70 - 99 MG/DL 01/06/2022 12:21 PM CDT [facility] BUN 38(H) 7 - 18 MG/DL 01/06/2022 12:21 PM CDT [facility] CREATININE S/P/B 2.29(H) 0.50 - 1.20 MG/DL 01/06/2022 12:21 PM CDT [facility] SODIUM S/P/B 137 136 - 145 MMOL/L 01/06/2022 12:21 PM CDT [facility] POTASSIUM S/P/B 4.6 3.5 - 5.1 MMOL/L 01/06/2022 12:21 PM CDT [facility] CHLORIDE S/P/B 106 100 - 108 MMOL/L 01/06/2022 12:21 PM CDT [facility] CO2 20.8(L) 21.0 - 32.0 MMOL/L 01/06/2022 12:21 PM CDT [facility] CALCIUM S/P/B 8.5 8.5 - 10.1 MG/DL 01/06/2022 12:21 PM CDT [facility] ANION GAP 10.2 5.0 - 15.0 MMOL/L 01/06/2022 12:21 PM CDT [facility] BUN CREATININE RATIO 16.6 6 - 26 01/06/2022 12:21 PM CDT [facility] EGFR NON-AFR. AMER. 33(L) >90 ML/MIN/1.7 3 M2 01/06/2022 12:21 PM CDT [facility] EGFR AFR. AMER. 38(L) >90 ML/MIN/1.7 3 M2 01/06/2022 12:21 PM CDT [facility] Comment: NOTE: eGFR is not calculated for patients <18 years of age. This is an estimated GFR (CKD EPI) and should not be used for calculating drug doses. 01/06/2022 11:5 1 AM CDT us Nima Hollis MD LABORATORY Final Result [address] [place] [address], * (ABNORMAL) CBC, AUTO, NO DIFF (01/06/2022 11:51 AM CDT) WBC 8.1 4.5 - 11.0 x10'3/uL 01/06/2022 12:25 PM CDT [facility] RBC 4.16(L) 4.5 - 5.9 x10'6/uL 01/06/2022 12:25 PM CDT [facility] HGB 12.6 12.0 - 16.0 G/DL 01/06/2022 12:25 PM CDT [facility] HCT 37.4 37.0 - 49.0 % 01/06/2022 12:25 PM CDT [facility] MCV 89.9 80.0 - 100.0 FL 01/06/2022 12:25 PM CDT [facility] MCH 30.3 26.0 - 34.0 PG 01/06/2022 12:25 PM CDT [facility] MCHC 33.7 31.0 - 37.0 G/DL 01/06/2022 12:25 PM CDT [facility] RDW 13.4 11.6 - 14.8 % 01/06/2022 12:25 PM CDT [facility] PLT 191 140 - 415 x10'3/uL 01/06/2022 12:25 PM CDT [facility] MPV 11.3 7.0 - 12.0 FL 01/06/2022 12:25 PM CDT [facility] 01/06/2022 11:5 1 AM CDT us Nima Hollis MD LABORATORY Final Result [facility] [address] [place] [address], documented in this encounter Visit Diagnoses Diagnosis Abnormal cardiovascular stress test- Primary Other nonspecific abnormal cardiovascular system function study documented in this encounter Care Teams Purification Supervisor Relationship Specialty Start Date End Date Dennis Doran MD PCP - General INTERNAL MEDICINE 02/28/17 10/23/23 Joann Marquez ANP- [address] [facility] [address] [place] [address] [place] Clerk NURSE PRACTITIONER 02/28/17 documented as of this encounter
--- OUTSIDE RECORDS SUMMARY | 2024-10-26 23:06 | XMS_ITS | Encounter Summary ---
Author Organization [facility] Address [address] [place] [address]. 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
--- OUTSIDE RECORDS SUMMARY | 2024-10-26 23:06 | XMS_ITS | Encounter Summary ---
Author Organization [facility] Address [address] [place] [address]. [place], [place] [address] [place] [address] Care Team Providers Care Jet Mechanic Name Role Phone Dennis Doran MD Primary Care Provider [phone] Joann Marquez [facility]- Unavailable [phone] Reason for Referral * Imaging (Emergency) - Closed Specialty Diagnoses / Procedures Referred By Cheyanne puentes Referred To Contact RADIOLOGY Procedures CT HEAD WO CON Orquidea Ospina MD [address] [place] [address] Phone: tel: fax: Referral ID Status Reason Start Date Expiration Date Visits Re quested Visits Authorized [id number] Closed 10/28/2021 11/28/2022 1 1 TREAT OPERATOR Reason for Visit * Reason Comments Dizziness Encounter Details Date Type Department Care Team (Late st Contact Info) Description 10/28/2021 10:57 AM HEAT TREAT OPERATOR - 10/28/2021 2:20 PM HEAT TREAT OPERATOR Emergency 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 Not on file Not on file Not on file Not on file Not on file Not on file Not on file COVID-19 Exposure Response Date Recorded In the last month, have you been in contact with someone who was confirmed or suspected to have Coronavirus / COVID-19? No / Unsure 10/28/2021 11:15 AM HEAT TREAT OPERATOR documented as of this encounter Last Filed Vital Signs Vital Sign Reading Time Taken Comments Blood Pressure 175/80 10/28/2021 2:20 PM HEAT TREAT OPERATOR Pulse 75 10/28/2021 1:50 PM HEAT TREAT OPERATOR Temperature 37.3 ??C (99.1 ??F) 10/28/2021 11:[address] Respiratory Rate 16 10/28/2021 11:10 AM HEAT TREAT OPERATOR Oxygen Saturation 95% 10/28/2021 1:50 PM HEAT TREAT OPERATOR Inhaled Oxygen Concentration - - Weight 88.5 kg (195 lb) 10/28/2021 11:10 AM HEAT TREAT OPERATOR Height 180.3 cm (5' 11 ) 10/28/2021 11:10 AM HEAT TREAT OPERATOR Body Mass Index 27.2 10/28/2021 11:10 AM HEAT TREAT OPERATOR documented in this encounter Discharge Instructions * Discharge Instructions* Orquidea Ospina MD - 10/28/2021 1:41 PM HEAT TREAT OPERATOR May use zyrtc over the counter for congestion , return if worse TREAT OPERATOR * Attachments The following attachments cannot be sent through Care Everywhere. * Dizziness, Adult ED (Mauritanian) * Labyrinthitis (Mauritanian) documented in this encounter Medications at Time [...] 02/23/2014 12/21/19 2 2 vitamin D2, ergocalciferol, 76314 UNITS capsule Take 50,000 Units by mouth once a week. 10/28/2021 4 documented as of this encounter ED Notes * Annel Botello RN - 10/28/2021 2:19 PM CST Feeling better, denies dizziness at this time TREAT OPERATOR * Annel Botello RN - 10/28/2021 1:09 PM CST States doing ok laying on L side. Voices no c/o TREAT OPERATOR * Annel Botello RN - 10/28/2021 10:59 AM CSTSummary: vertigo/ chest pain. States started getting sick on Sunday with body aches. Went to dr and yang test neg. Cont to takeNTG for chest pain and come to ER as needed. Took NTG yesterday. Today rolled over in bed and states spinning and double vision. Able to walk. No vomiting. No weakness TREAT OPERATOR * Orquidea Ospina MD - 10/28/2021 10:55 [...] ??? CVA (cerebral vascular accident) ([facility] 2009 ??? Diabetes ([facility]) ??? Diabetic retinopathy ([facility]) ??? GERD (gastroesophageal reflux disease) ??? History [...] encounter of 10/28/21 ECG 12 lead Narrative [facility] Test Date: 2021-10-28 Pat Name: RUBIA KOWALSKI Department: Room: Gender: Male Chief Digital Media Officer: : 1975 Requested By: ORQUIDEA OSPINA Order Number: [id number] Reading MD: Measurements Intervals [place] Rate: 74 P: 19 OK: 120 QRS: 19 QRSD: 85 T: 52 QT: 393 QTc: 436 Interpretive Statements SINUS RHYTHM Compared to ECG 01/21/2021 13:11:23 Myocardial infarct finding no longer present ECG 12 lead Narrative [facility] Test Date: 2021-10-28 Pat Name: RUBIA KOWALSKI Department: Room: Gender: Male Chief Digital Media Officer: : 1975 Requested By: ORQUIDEA OSPINA Order Number: [id number] Reading MD: Measurements Intervals [place] Rate: 62 P: 24 OK: 133 QRS: -6 QRSD: 90 T: 31 [...] HEAD WO CON Final Result by User, [email or web address] (10/28 4942) IMAGING STUDIES: CT HEAD WO CON DATE: [...] XR CHEST PORTABLE Final Result by User, [email or web address] (10/28 5465) IMAGING STUDIES: XR CHEST PORTABLE DATE: 10/28/2021 [...] Disposition: Discharge Orquidea Ospina MD 10/28/21 1342 TREAT OPERATOR documented in this encounter Plan of Treatment Not on file documented as of this encounter Procedures Procedure Name Priority Date/Time Associated Diagnosis Comments ECG 12-LEAD STAT 10/28/2021 1:15 PM HEAT TREAT OPERATOR CT HEAD WO CON STAT 10/28/2021 12:24 PM HEAT TREAT OPERATOR XR CHEST PORTABLE STAT 10/28/2021 11: 10 AM HEAT TREAT OPERATOR COMPREHENSIVE METABOLIC PANEL STAT 10/28/2021 11:05 AM HEAT TREAT OPERATOR CBC W/DIFF AUTOMATED STAT 10/28/2021 11:05 AM HEAT TREAT OPERATOR TROPONIN, QUANT STAT 10/28/2021 11:05 AM HEAT TREAT OPERATOR ECG 12-LEAD STAT 10/28/2021 11:04 AM HEAT TREAT OPERATOR documented in this encounter Results * ECG 12 lead (10/28/2021 1:15 PM HEAT TREAT OPERATOR) 10/28/2021 1:15 PM HEAT TREAT OPERATOR Narrative [facility] RAD - 10/29/2021 7:44 AM HEAT TREAT OPERATOR ?[facility] ? Test Date: ?2021-10-28 Pat Name: ? RUBIA KOWALSKI ?Department: ? Room: ? Gender: ? Male ? Chief Digital Media Officer: ?? : ?1975 ? Requested By: ORQUIDEA PIÑAI Order Number: [id number] ? Reading MD: ?? Delano Wray ? Measurements Intervals ?[place] ? Rate: ? 62 ? P: ?24 OK: ? 133 ?QRS: ?-6 QRSD: ? 90 ? T: ?31 QT: ? 421 ? QTc: ?431 ? Interpretive Statements SINUS RHYTHM Compared to ECG 10/28/2021 11:04:55 No significant changes Poor R Wave Progression clinical correlation recommended. TREAT OPERATOR Procedure Note Delano Wray MD - 10/29/2021 [facility] Test Date: 2021-10-28 Pat Name: RUBIA KOWALSKI Department: Room: Gender: Male Chief Digital Media Officer: : 1975 Requested By: ORQUIDEA OSPINA Order Number: [id number] Reading MD: Delano Wray Measurements Intervals [place] Rate: 62 P: 24 OK: 133 QRS: -6 QRSD: 90 T: 31 QT: 421 QTc: 431 Interpretive Statements SINUS RHYTHM Compared to ECG 10/28/2021 11:04:55 No significant changes Poor R Wave Progression clinical correlation recommended. TREAT OPERATOR us Orquidea Ospina MD ECG ORDERABLES Final Result [facility] RAD * CT HEAD WO CON (10/28/2021 12:24 PM HEAT TREAT OPERATOR) Anatomical Region Laterality Modality Head Computed Tomogra phy 10/28/2021 12:3 4 PM HEAT TREAT OPERATOR Impressions 10/28/2021 12:39 PM HEAT TREAT OPERATOR IMPRESSION: 1. ??Routine noncontrast head CT. Comparison [...] 10/28/2021 12:34 PM Narrative 10/28/2021 12:39 PM HEAT TREAT OPERATOR IMAGING STUDIES: CT HEAD WO CON ??DATE: [...] * XR CHEST PORTABLE (10/28/2021 11:10 AM HEAT TREAT OPERATOR) Anatomical Region Laterality Modality Chest Radiographic Madelin ging 10/28/2021 11:1 1 AM HEAT TREAT OPERATOR Impressions 10/28/2021 11:12 AM HEAT TREAT OPERATOR IMPRESSION: 1. ??No evidence of acute cardiopulmonary disease. 2. ??No evidence of pleural effusion or pneumothorax. No CHF. 3. ??Normal heart size. Osseous structures intact. Ordered By: ORQUIDEA OSPINA Interpreted By: Aguilar Luther, 10/28/2021 11:11 AM Narrative 10/28/2021 11:12 AM HEAT TREAT OPERATOR IMAGING STUDIES: XR CHEST PORTABLE ? DATE: [...] Result * TROPONIN, QUANT (10/28/2021 11:05 AM HEAT TREAT OPERATOR) TROPONIN I HIGH SENSITIVITY 15 <76 ng/L 10/28/2021 11:54 AM HEAT TREAT OPERATOR [facility] Comment: HIGH DOSES OF BIOTIN, TROPONIN-SPECIFIC AUTOANTIBODIES, AND ANTIBODY THERAPY CONTAINING HAMA MAY INTERFERE WITH THIS TEST RESULT. CORRELATION TO CLINICAL HISTORY AND PRESENTATION RECOMMENDED. 10/28/2021 11:0 5 AM HEAT TREAT OPERATOR us Orquidea Ospina MD LABORATORY Final Result [facility] [address] [place] [address], [place] [phone] * (ABNORMAL) COMPREHENSIVE METABOLIC PANEL (10/28/2021 11:05 AM [facility]) [facility] GLUCOSE 243(H) 70 - 99 MG/DL 10/28/2021 11:50 AM [facility] BUN 22(H) 7 - 18 MG/DL 10/28/2021 11:50 AM [facility] CREATININE S/P/B 2.29(H) 0.7 - 1.3 MG/DL 10/28/2021 11:50 AM [facility] SODIUM S/P/B 140 136 - 145 MMOL/L 10/28/2021 11:50 AM [facility] POTASSIUM S/P/B 4.2 3.5 - 5.1 MMOL/L 10/28/2021 11:50 AM [facility] CHLORIDE S/P/B 105 100 - 108 MMOL/L 10/28/2021 11:50 AM [facility] CO2 22.9 21 - 32 MMOL/L 10/28/2021 11:50 AM [facility] CALCIUM S/P/B 8.1(L) 8.5 - 10.1 MG/DL 10/28/2021 11:50 AM [facility] BILIRUBIN TOTAL S/P/B 0.2 0.2 - 1.2 MG/DL 10/28/2021 11:50 AM [facility] TOTAL PROTEIN S/P/B 6.0(L) 6.4 - 8.2 G/DL 10/28/2021 11:50 AM [facility] ALBUMIN S/P/B 2.8(L) 3.4 - 5.0 G/DL 10/28/2021 11:50 AM [facility] AST 29 15 - 37 U/L 10/28/2021 11:50 AM [facility] ALT 28 16 - 60 U/L 10/28/2021 11:50 AM [facility] ALKALINE PHOSPHATASE S/P/B 86 50 - 136 U/L 10/28/2021 11:50 AM [facility] ANION GAP 12.1 5 - 15 MMOL/L 10/28/2021 11:50 AM [facility] BUN CREATININE RATIO 9.6 6 - 26 10/28/2021 11:50 AM [facility] A/G RATIO 0.9(L) 1.0 - 2.0 RATIO 10/28/2021 11:50 AM [facility] EGFR NON-AFR. AMER. 33(L) >90 ML/MIN/1.7 3 M2 10/28/2021 11:50 AM [facility] EGFR AFR. AMER. 38(L) >90 ML/MIN/1.7 3 M2 10/28/2021 11:50 AM [facility] Comment: NOTE: eGFR is not calculated for patients <18 years of age. This is an estimated GFR (CKD EPI) and should not be used for calculating drug doses. 10/28/2021 11:0 5 AM [facility] Orquidea Ospina MD LABORATORY Final Result [facility] [address] [place] [address], * (ABNORMAL) CBC W/DIFF AUTOMATED (10/28/2021 11:05 AM [facility]) WBC 4.8 4.4 - 11.0 x10'3/uL 10/28/2021 11:44 AM [facility] RBC 4.70 4.50 - 5.90 x10'6/uL 10/28/2021 11:44 AM [facility] HGB 14.1 14.0 - 17.5 G/DL 10/28/2021 11:44 AM [facility] HCT 42.9 41.5 - 50.4 % 10/28/2021 11:44 AM [facility] MCV 91.3 80.0 - 96.0 FL 10/28/2021 11:44 AM [facility] MCH 30.0 26.5 - 31.4 PG 10/28/2021 11:44 AM [facility] MCHC 32.9 31.9 - 34.8 G/DL 10/28/2021 11:44 AM [facility] RDW 13.1 12.3 - 14.3 % 10/28/2021 11:44 AM [facility] PLT 169 151 - 353 x10'3/uL 10/28/2021 11:44 AM [facility] MPV 11.3 9.7 - 11.9 FL 10/28/2021 11:44 AM [facility] RBC MORPHOLOGY NORMAL 10/28/2021 11:44 AM [facility] PLT MORPH. NORMAL 10/28/2021 11:44 AM [facility] WBC MORPHOLOGY NORMAL 10/28/2021 11:44 AM [facility] LYMPHOCYTES % 14.3(L) 15.8 - 45.0 % 10/28/2021 11:44 AM [facility] NEUTROPHILS % 74.2(H) 42.1 - 71.9 % 10/28/2021 11:44 AM [facility] MONOCYTES % 6.7 5.7 - 12.5 % 10/28/2021 11:44 AM HEAT TREAT OPERATOR [facility] EOSINOPHILS 3.6 0.0 - 5.6 % 10/28/2021 11:44 AM HEAT TREAT OPERATOR [facility] BASOPHILS 1.0 0.0 - 1.3 % 10/28/2021 11:44 AM HEAT TREAT OPERATOR [facility] ABS. NEUTROPHILS 3.54 1.40 - 6.00 x10'3/uL 10/28/2021 11:44 AM HEAT TREAT OPERATOR [facility] IMMATURE GRANS % 0.2 0.0 - 0.5 % 10/28/2021 11:44 AM [facility] ABS. LYMPHOCYTES 0.68(L) 0.80 - 4.70 x10'3/uL 10/28/2021 11:44 AM HEAT TREAT OPERATOR [facility] 10/28/2021 11:0 5 AM HEAT TREAT OPERATOR Orquidea Ospina MD LABORATORY Final Result Performing Organization Address [facility]/State/[facility] Co de Phone Number [facility] [address] [place] [address], * ECG 12 lead (10/28/2021 11:04 AM HEAT TREAT OPERATOR) 10/28/2021 11:0 4 AM HEAT TREAT OPERATOR Narrative [facility] RAD - 10/29/2021 7:41 AM HEAT TREAT OPERATOR ?[facility] ? Test Date: ?2021-10-28 Pat Name: ? RUBIA KOWALSKI ?Department: ? Room: ? Gender: ? Male ? Chief Digital Media Officer: ?? : ?1975 ? Requested By: CHILEL MELVA Order Number: [id number] ? Reading MD: ?? Delano Wray ? Measurements Intervals ?[place] ? Rate: ? 74 ? P: ?19 OK: ? 120 ?QRS: ?19 QRSD: ? 85 ? T: ?52 QT: ? 393 ? QTc: ?436 ? Interpretive Statements SINUS RHYTHM Compared to ECG 01/21/2021 13:11:23 old Myocardial infarct in anteroseptal ??area still a possibility clinical correlation recommended. TREAT OPERATOR Procedure Note Delano Wray MD - 10/29/2021 [facility] Test Date: 2021-10-28 Pat Name: RUBIA KOWALSKI Department: Room: Gender: Male Chief Digital Media Officer: : 1975 Requested By: ORQUIDEA OSIPNA Order Number: [id number] Reading MD: Delano Wray Measurements Intervals [place] Rate: 74 P: 19 OK: 120 QRS: 19 QRSD: 85 T: 52 QT: 393 QTc: 436 Interpretive Statements SINUS RHYTHM Compared to ECG 01/21/2021 13:11:23 old Myocardial infarct in anteroseptal area still a possibility clinical correlation recommended. TREAT OPERATOR us Orquidea Ospina MD ECG ORDERABLES Final Result [facility] documented in this encounter Visit Diagnoses Diagnosis Vertigo- Primary Dizziness and giddiness Chest wall pain Painful respiration documented in this encounter Administered Medications Inactive Administered Medications - up to 3 most recent administrations Medication Order MAR Action Action Date Dose Rate Site aspirin chewable tablet 324 mg 324 mg, Oral, Once, 1 dose, On Sun10/28/21 at 1100 Given 10/28/2021 11:46 AM HEAT TREAT OPERATOR 324 mg meclizine (ANTIVERT) tablet 50 mg 50 mg, Oral, Once, 1 dose, On Sun10/28/21 at 1115 Given 10/28/2021 11:47 AM HEAT TREAT OPERATOR 50 mg sodium chloride 0.9% bolus infusion SOLN 1,000 mL 1,000 mL, Intravenous, Administer over 15 Minutes, Once, 1 dose, On Sun10/28/21 at 1245 New Bag 10/28/2021 1:09 PM HEAT TREAT OPERATOR 1,000 mLs documented in this encounter Active and Recently Administered Medications Times are shown in HEAT TREAT OPERATOR. Scheduled Medication Order 10/26/2021 10/27/2021 10/28/2021 aspirin [...] RN) documented in this encounter Care Teams Jet Mechanic Relationship Specialty Start Date End Date Dennis Doran MD PCP - General INTERNAL MEDICINE 02/28/17 10/23/23 Joann Marquez ANP- [address] [facility] [address] [place] [address] [place] [employer] NURSE PRACTITIONER 02/28/17 documented as of this encounter
--- OUTSIDE RECORDS SUMMARY | 2024-10-26 23:06 | XMS_ITS | Encounter Summary ---
Author Organization [facility] Address [facility] 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 EKG shows sinus rhythm with septal NM and poor r wave progression. This appears [...] if partner can work in sooner in [place]. He declined offer to move up appt. [...] feels better. He voiced understanding of recommendations. LS TRAINER LS TRAINER * Adilson Lund RN - 10/27/2021 11:13 AM CST Received records from PCP. They are being scanned in. Pt saw PCP in September LS TRAINER LS TRAINER * Adilson Lund RN - 10/27/2021 9:28 [...] drive him and it is 1.5hours from [employer]. Advised I will watch for cancellations upcoming for him to get in sooner. Instructed him to go to ER if 3 nitro do not relieve the chest pain LS TRAINER LS TRAINER documented in this encounter Plan of Treatment Not on file documented as of this encounter Visit Diagnoses Not on filedocumented in this encounter Care Teams Regional Agronomist Relationship Specialty Start Date End Date Dennis Doran MD PCP - General INTERNAL MEDICINE 02/28/17 10/23/23 Joann Marquez, ANP- [address] [facility] [address] [place] [address] [employer] Activist NURSE PRACTITIONER 02/28/17 documented as of this encounter
--- OUTSIDE RECORDS SUMMARY | 2024-10-26 23:06 | XMS_ITS | Encounter Summary ---
Author Organization [facility] Address [address] [place] [address]. [place], [place] [address] [place] [address] Care Team Providers Care City Planning Aide Name Role Phone Dennis Doran MD Primary Care Provider [phone] Joann Marquez [facility]- Unavailable [phone] Reason for Visit * Reason Onset Date Comments Lab Results 05/05/2022 Returned Call 05/05/2022 Encounter Details Date Type Department Care Team (Late st Contact Info) Description 05/05/2022 Telephone [facility] [address] [place] [address] Dieter Arechiga MD [address] [address] Lab Results; Returned Call Social [...] 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 Not on file [...] contraindication to fenofibrate, nicotinic acid or other [place] 3 acid ethyl esters(generic Lovaza) * Kelsey [...] VM DATE/TIME:05/08/22 @ 1259pm CALLER: patient #: [phone] PROVIDER/NEW PT: Geni REASON FOR CALL: returning [...] Results * MAGNESIUM (OUTSIDE LAB) (04/26/2022) Pathologist [facility] MAGNESIUM 1.9 04/26/2022 Denisha MCCLURE LAB-OUTSIDE/ABSTRACTED Final Result * ALBUMIN URINE RANDOM (04/26/2022) [facility] MICROALBUMIN (U) 262.1 CREATININE RANDOM (U) 90 MICROALB/CREAT 2,912 >50 Comment:note 09/20/21 was 40 70 URINE SPECIMEN / Unknown 04/26/2022 Denisha MCCLURE URINE ORDERABLES Final Result * CBC (OUTSIDE LAB) (04/26/2022) [facility] WBC 6.3 HGB 13.7 HCT 42.0 RBC 4.63 04/26/2022 Denisha MCCLURE LAB-OUTSIDE/ABSTRACTED Final Result * THYROXINE, FREE (FT4) (04/26/2022) [facility] FREE T4 0.9 04/26/2022 Denisha MCCLURE LABORATORY Final Result * (ABNORMAL) TSH (OUTSIDE LAB) (04/26/2022) [facility] TSH 7.87(A) <=4.50 04/26/2022 Denisha MCCLURE LAB-OUTSIDE/ABSTRACTED Final Result * (ABNORMAL) CMP (OUTSIDE LAB) (04/26/2022) [facility] SODIUM S/P/B 136 POTASSIUM S/P/B 4.5 CHLORIDE [...] type documented in this encounter Care Teams City Planning Aide Relationship Specialty Start Date End Date Dennis Doran MD PCP - General INTERNAL MEDICINE 02/28/17 10/23/23 Joann Marquez ANP- [address] [facility] [address] [place] [address] [employer] D[employer] Folder NURSE PRACTITIONER 02/28/17 documented as of this encounter
--- OUTSIDE RECORDS SUMMARY | 2024-10-26 23:06 | XMS_ITS | Encounter Summary ---
Author Organization [facility] Address [facility] [place] [address] [place] [address] Care Team Providers Care Belt Buckle Maker Name Role Phone Dennis Doran MD Primary Care Provider [phone] Joann Marquez Unavailable Reason for Visit * Reason Onset Date Comments Reschedule 10/01/2023 Refill Request 10/01/2023 Encounter Details Date Type Department Care Team ([facility] st Contact Info) Description 10/01/2023 [facility]phone [facility] [address] [place] [address] Joann Marquez ANP-BC [address] 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 Y MIXER AND APPLIER * Rosana Felipe - 10/02/2023 2:30 PM CST Patient checked with [facility] in [place], they did not receive his refill for his clopidogrel. Patient asked if you could send it through again. His call back # is [phone]. Y MIXER AND APPLIER * Amanda Maldonado LPN - 10/01/2023 12:31 PM CST Pt aware . Y MIXER AND APPLIER * MARIO Mendenhall - 10/01/2023 11:20 AM CST Please provide patient one more supply of plavix 75mg daily to last until his next appointment. Please tell him if he reschedules again he will need to get further refill from his primary provider. If he runs out of plavix he should start an 81mg aspirin daily in its place. Y MIXER AND APPLIER Y MIXER AND APPLIER * Loretta Kaur - 10/01/2023 11:12 AM CST Patient called and rescheduled his follow up. Rescheduled to 11/06/2023 at 8:30 am with Joann Gaffney. Patient needs refill on his Clopidogrel called into [facility] in [place], [place] Y MIXER AND APPLIER documented in this encounter Plan of Treatment Not on file documented as of this encounter Visit Diagnoses Not on filedocumented in this encounter Care Teams Belt Buckle Maker Relationship Specialty Start Date End Date Dennis Doran MD PCP - General INTERNAL MEDICINE 02/28/17 10/23/23 Joann Marquez, ANP- [address] [facility] [address] [place] [id number] [employer] Coin Machine Collector NURSE PRACTITIONER 02/28/17 documented as of this encounter
--- OUTSIDE RECORDS SUMMARY | 2024-10-26 23:06 | XMS_ITS | Encounter Summary ---
Author Organization [facility] Address [address] [place] [address]. [place], [place] [address] [place] [address] Care Team Providers Care Byproducts Maker Name Role Phone Dennis Doran MD Primary Care Provider [phone] Joann Marquez [facility]- Unavailable Reason for Visit * Reason Onset Date Comments Information 01/10/2022 Encounter Details Date Type Department Care Team ([facility] st Contact Info) Description 01/10/2022 [facility]phone [facility] [address] [place] [address] Nima Hollis MD [address] [place] [address] Information Social History Tobacco Use [...] 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
--- OUTSIDE RECORDS SUMMARY | 2024-10-26 23:06 | XMS_ITS | Encounter Summary ---
Author Organization [facility] Address [address] [place] [address]. [place] [address] [place] [address] Care Team Providers Care Ammonia Technician Name Role Phone Joann Marquez-BC Unavailable [phone] Denisha Hansen Primary Care Provider [phone] Reason for Visit * Reason Comments Follow Up Encounter Details Date Type Department Care Team ([facility] st Contact Info) Description 11/06/2023 8:30 AM HOSPICE EDUCATOR [facility] [address] [place] [address] Joann Marquez, AURELIANO-BC [address] [facility] [address] [place] [address] Follow Up Social History Tobacco Use Types [...] 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 Not on file Not on file Not on file Not on file Not on file Not on file documented as of this encounter Last Filed Vital Signs Vital Sign Reading Time Taken Comments Blood Pressure 132/76 11/06/2023 8:36 AM HOSPICE EDUCATOR Pulse 81 11/06/2023 8:36 AM HOSPICE EDUCATOR Temperature - - Respiratory Rate 16 11/06/2023 8:36 AM HOSPICE EDUCATOR Oxygen Saturation 96% 11/06/2023 8:36 AM HOSPICE EDUCATOR Inhaled Oxygen Concentration - - Weight 90.3 kg (199 lb) 11/06/2023 8:36 AM HOSPICE EDUCATOR Height 180.3 cm (5' 11 ) 11/06/2023 8:36 AM HOSPICE EDUCATOR Body Mass Index 27.75 11/06/2023 8:36 AM HOSPICE EDUCATOR documented in this encounter Progress Notes * AURELIANO Mendenhall- - 11/06/2023 8:30 AM CST From: Joann Marquez LAST MARKER Collaborating Physician: Abhinav Gould MD Dear Dr. DENISHA HANSEN PA: Tank Kowalski was seen on 11/06/2023 at the [facility]. History of Present Illness: Tank Kowalski [...] any antiplatelet therapy until he presented with UT a few years later. He said in [...] if cardiac concerns arise. Sincerely, Joann Marquez, LAST MARKER- Medications: Current Outpatient Medications: atorvastatin (LIPITOR) 80 [...] daily., Disp: , Rfl: vitamin D2, ergocalciferol, 77496 UNITS capsule, Take 50,000 Units by mouth once a week., Disp: , Rfl: Review of patient's allergies indicates: Allergen Reactions Guaifenesin Swelling Simvastatin Myalgias Past Medical History: Diagnosis Date Anxiety CAD (coronary artery disease) Cancer ([facility]/HCC) ([facility]) Melanoma Chronic kidney disease CKD (chronic kidney disease) Colitis CVA (cerebral vascular accident) ([facility]) ([facility]) 2009 Diabetes ([facility]/HCC) ([facility]) Diabetic retinopathy ([facility]/HCC) ([facility]) GERD (gastroesophageal reflux disease) Glaucoma History of coronary artery stent placement 2013 Hyperlipidemia Hypertension Lumbago Myocardial infarction ([facility]) Personal history of MRSA (methicillin [...] Comments: Diagnoses/Impression: 1. Coronary artery disease of [place] artery of [place] heart with stable angina pectoris (CMS/HCC) CBC W/DIFF AUTOMATED COMPREHENSIVE METABOLIC PANEL LIPID PANEL 2. Mixed hyperlipidemia CBC W/DIFF AUTOMATED COMPREHENSIVE METABOLIC PANEL LIPID PANEL 3. Primary hypertension CBC W/DIFF AUTOMATED COMPREHENSIVE METABOLIC PANEL LIPID PANEL 4. Tobacco use PCP: KAMI REILLY ICE EDUCATOR documented in this encounter Plan of Treatment Not on file documented as of this encounter Procedures Procedure Name Priority Date/Time Associated Diagnosis Comments ELECTROCARDIOGRAM (NON MIDMARK ACQUIRED) Routine 11/06/2023 8:44 AM HOSPICE EDUCATOR Coronary artery disease of [place] artery of [place] heart with stable angina pectoris documented in [...] 6.2 6.1 - 8.1 01/15/2024 Joann Marquez [facility] Final Re sult * [...] 83 0 - 200 01/15/2024 Joann Marquez [facility] Final Re sult * ELECTROCARDIOGRAM (11/06/2023 8:44 AM HOSPICE EDUCATOR) 11/06/2023 8:44 AM HOSPICE EDUCATOR Narrative [facility] - 11/06/2023 9:02 AM HOSPICE EDUCATOR ? [facility] ?[address], [place] ??[address] ? Test Date: ?2023-11-06 Pat Name: ? TANK CAMPBELLJOSE ANGEL ?Department: ?? 105 ? Room: ? Gender: ? Male ? Resident Care Aide: ?? bjs : ?1975 ? Requested By: ABHINAV GOULD Order Number: [id number] ?Reading MD: ?? Abhinav Gould ? Measurements Intervals ?Altha ? Rate: ? 74 ? P: ?33 WA: ? 130 ?QRS: ?30 QRSD: ? 84 ? T: ?55 QT: ? 373 ? QTc: ?414 ? Interpretive Statements SINUS RHYTHM po SEPTAL MYOCARDIAL INFARCTION, OF INDETERMINATE AGE ICE EDUCATOR Procedure Note Abhinav Gould MD - 11/06/2023 [facility] [address] [place] [address] Test Date: 2023-11-06 Pat Name: TANK KOWALSKI Department: 105 Room: Gender: Male Resident Care Aide: fili : 1975 Requested By: ABHINAV GOULD Order Number: [id number] Reading MD: Abhinav Gould Measurements Intervals Altha Rate: 74 P: 33 WA: 130 QRS: 30 QRSD: 84 T: 55 QT: 373 QTc: 414 Interpretive Statements SINUS RHYTHM po SEPTAL MYOCARDIAL INFARCTION, OF INDETERMINATE AGE ICE EDUCATOR us Abhinav Gould MD PROCEDURES-ORDERABLE NO CHARGE F inal Result [facility] documented in this encounter Visit Diagnoses Diagnosis Coronary artery disease of [place] artery of [place] heart with stable angina pectoris (CMS/HCC)- Primary Mixed hyperlipidemia Primary hypertension Unspecified essential hypertension Tobacco use Tobacco use disorder documented in this encounter Care Teams Ammonia Technician Relationship Specialty Start Date End Date Denisha Hansen PA [address] [place] [address] PCP - General PHYSICIAN CARGO ROUTER 10/24/23 Joann Marquez, ANP-BC [address] [facility] [address] [place] [address] [place] Funeral Greeter NURSE PRACTITIONER 02/28/17 documented as of this encounter
--- OUTSIDE RECORDS SUMMARY | 2024-10-26 23:06 | XMS_ITS | Encounter Summary ---
Author Organization [facility] Address [address] [place] [address]. [place], [place] [address] [place] [address] Care Team Providers Care Supervisor Cook Room Name Role Phone Dennis Doran MD Primary Care Provider [phone] Joann Marquez [facility]- Unavailable [phone] Reason for Visit * Reason Onset Date Comments Medication Information 05/29/2022 Encounter Details Date Type Department Care Team (Late st Contact Info) Description 05/29/2022 Telephone 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 See Dr. Arechiga note 05/05/22. FILTER TANK TENDER HEAD FILTER TANK TENDER HEAD * Kelsey Kirby LPN - 05/30/2022 2:07 PM CDT Called and spoke to pt, aware Vascepa was approved and pharmacy is aware. He agrees. * Kelsey Kirby LPN - 05/29/2022 2:01 PM CDT Received fax from [employer] after Dr Arechiga did appeal and Vascepa approved from 05/28/22 to 05/28/23 Called pharmacy and they are aware and it went thru. Pt cost is $10.00 Left message for pt to call office. (let him know vascepa approved and can apple picker at pharmacy) documented in this encounter Plan of Treatment Not on file documented as of this encounter Visit Diagnoses Diagnosis Hyperlipidemia, unspecified hyperlipidemia type- Primary documented in this encounter Care Teams Supervisor Cook Room Relationship Specialty Start Date End Date Dennis Doran MD PCP - General INTERNAL MEDICINE 02/28/17 10/23/23 Joann Marquez ANP- [address] [facility] [address] [place] [address] [place] Rhinologist NURSE PRACTITIONER 02/28/17 documented as of this encounter
--- OUTSIDE RECORDS SUMMARY | 2024-10-26 23:06 | XMS_ITS | Encounter Summary ---
Author Organization [facility] Address [address] [place] [address]. [place], [place] [address] [place] [address] Care Team Providers Care Doctor Of Nursing Practice Name Role Phone Dennis Crump MD Primary Care Provider [phone] Joann Marquez [facility] Unavailable [phone] Reason for Referral * Imaging (Routine) - Closed Specialty Diagnoses / Procedures Referred By Cheyanne punetes Referred To Contact RADIOLOGY Diagnoses Abnormal cardiovascular stress test Procedures [facility] Tete Malagon MD [address] [place] [address] Phone: tel: fax: Referral ID Status Reason Start Date Expiration Date Visits Re quested Visits Authorized [id number] Closed 01/03/2022 04/05/2022 1 1 Reason for Visit * Imaging (Routine) - Closed Specialty Diagnoses / Procedures Referred By Cheyanne puentes Referred To Contact RADIOLOGY Diagnoses Abnormal cardiovascular stress test Procedures [facility] Tete Malagon MD [address] [place] [address] Phone: tel: fax: Referral ID Status Reason Start Date Expiration Date Visits Re quested Visits Authorized [id number] Closed 01/03/2022 04/05/2022 1 1 Encounter Details Date Type Department Care Team (Latest Contact Info) Description 01/09/2022 6:58 AM CDT - 01/09/2022 12:47 PM CDT Hospital Encounter [employer] Viewer Pre/Post [address] [place] [address] Tete Hollis MD [address] [place], [place] [address] Discharge Disposition: Home or Self Care (Routine [...] 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 vitamin D2 (ergocalciferol) 88578 UNITS capsule Commonly known as: DRISDOL Take 50,000 Units by mouth once a week. FOLLOW UP: Follow up with Dr. Arechiga in 4 weeks. Signed Tete Hollis MD, [facility], [facility] 0:22 AM Cc: DENNIS CRUMP MD.pcp documented [...] not operate equipment, such as an ATV, station superintendent, chainsaw, or motorcycle for 48 hours. 7. Notify your pathology secretary/transcriptionist of swelling or drainage at the site, or numbness, tingling, coldness, or cramping in hand/arm during rest or activity. Soreness is normal. Take Tylenol for pain. 8. Notify your pathology secretary/transcriptionist or your primary care physician if you [...] call your primary care physician or your pathology secretary/transcriptionist [phone]. documented in this encounter Medications at Time [...] 1 11/02/2021 06/04/20 24 vitamin D2, ergocalciferol, 48583 UNITS capsule Take 50,000 Units by mouth once a week. 10/28/2021 06/11/20 24 documented as of this encounter H&P Notes * Tete Hollis MD - 01/09/2022 8:05 AM CDT HISTORY AND PHYSICAL INTERVAL NOTE: Risks, benefits and alternatives of cardiac catheterization were discussed with the patient and/or family member/personal senior customer service representative including but not limited to bleeding, arrhythmias, allergic reactions to medications/contrast, acute renal failure which may require dialysis, acute myocardial infarction, emergency coronary bypass surgery, stroke and . Questions were answered to the patient/family/personal senior customer service representative. Patient agreed to proceed. Procedure will be performed using a transradial approach. Need for common femoral access in less than 5% of cases as well as vascular complications including spasm, vessel closure in less than 3% of cases and arm pain in less than 0.3% of procedures was discussed with patient. Source Note - Dieter Wade MD - 12/20/2021 10:30 AM OPERATIONS ASSISTANT Reason for Visit: Follow Up (CAD) [...] Disp: , Rfl: ??? vitamin D2, ergocalciferol, 09948 UNITS capsule, Take 50,000 Units by mouth [...] Comments: Diagnoses/Impression: 1. Coronary artery disease involving [place] coronary artery of [place] heart without angina pectoris 2. Primary hypertension 3. Hyperlipidemia, unspecified hyperlipidemia type 4. Tobacco use Referring Provider: Dennis Crump MD PCP: DENNIS CRUMP MD ATIONS ASSISTANT documented in this encounter Procedure Notes * Tete Hollis MD - 01/09/2022 10:12 AM CDT Metal Products Viewer Post-Procedural Documentation FILTER PULP WASHER: Tete Hollis MD, [facility], [facility] INDICATION: Abnormal nuclear stress test PROCEDURE: Left [...] Aggresive risk factor mofidication. Tete Hollis MD, [facility], [facility] January 09, 2022 documented in this encounter Plan of Treatment Not on file documented as of this encounter Procedures Procedure Name Priority Date/Time Associated Diagnosis Comments XA C POSS Routine 01/09/2022 10:12 AM CDT Abnormal cardiovascular stress test ECG 12-LEAD STAT 01/09/2022 7:31 AM CDT documented in this encounter Results * [facility] POSS (01/09/2022 10:12 AM CDT) Anatomical Region Laterality Modality Cardiac Metal Products Viewer 01/09/2022 9:30 AM CDT us Tete Hollis MD IRON ERECTOR Final Result * ECG 12 lead (01/09/2022 7:31 AM CDT) 01/09/2022 7:31 AM CDT Narrative [facility] - 01/09/2022 4:32 PM CDT ? [facility] ?[address] [place], [place] ??[address] ? Test Date: ?2022-01-09 Pat Name: ? TANK KOWALSKI ?Department: ? Room: ? [id number] Gender: ? Male ? Edge Burnisher Uppers: ?? : ?1975 ? Requested By: TETE HOLLIS Order Number: [id number] ? Reading : ?? Abbie Wilson ? Measurements Intervals ?[place] ? Rate: ? 70 ? P: ?22 MS: ? 144 ?QRS: ?-11 QRSD: ? 98 ? T: ?41 QT: ? 403 ? QTc: ?435 ? Interpretive Statements SINUS RHYTHM Procedure Note Abbie Wilson MD - 01/09/2022 [facility] [address] [place] [address] Test Date: 2022-01-09 Pat Name: TANK KOWALSKI Department: Room: [id number] Gender: Male Edge Burnisher Uppers: Errol : 1975 Requested By: TETE HOLLIS Order Number: [id number] Reading MD: Abbie Wilson Measurements Intervals [place] Rate: 70 P: 22 MS: 144 QRS: -11 QRSD: 98 T: 41 QT: 403 QTc: 435 Interpretive Statements SINUS RHYTHM us Tete Hollis MD ECG ORDERABLES Final Result [facility] documented in this encounter Visit [...] order) documented in this encounter Care Teams Doctor Of Nursing Practice Relationship Specialty Start Date End Date Dennis Crump MD PCP - General INTERNAL MEDICINE 02/28/17 10/23/23 Joann Marquez, ANP-BC [address] [facility] [address] [place] [address] [place] Draw Fire Operator NURSE PRACTITIONER 02/28/17 documented as of this encounter
--- OUTSIDE RECORDS SUMMARY | 2024-10-26 23:06 | XMS_ITS | Encounter Summary ---
Author Organization [facility] Address [address] [place] [address]. 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
--- OUTSIDE RECORDS SUMMARY | 2024-10-26 23:06 | XMS_ITS | Encounter Summary ---
Author Organization [facility] Address [facility]. 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
--- OUTSIDE RECORDS SUMMARY | 2024-10-26 23:06 | XMS_ITS | Encounter Summary ---
Author Organization [facility] Address [address] [place] [address]. 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 Zamora to review EKG and call Dr. Doran's office back- note also routed as high importance through [facility]. * Loretta Kaur - 04/20/2023 3:39 PM CDT Fax received and scanned. call center supervisor Dr. Zamora to take a look at. * Kelsey Marsh LPN - 04/20/2023 1:[address] Arechiga is out for 2 weeks (not sure if you told them that) So when you get the EKG, please scan and then send this message to Dr Zamora office (cosmetic surgeon) * Loretta Kaur - 04/20/2023 1:13 PM CDT Received a call from [facility] at primary care in [place] [phone] called they are faxing over a EKG that they have on this patient for Dr. Arechiga to look at. documented in this encounter Plan of Treatment Not on file documented as of this encounter Visit Diagnoses Not on filedocumented in this encounter Care Teams Gaming Host Relationship Specialty Start Date End Date Dennis Doran MD PCP - General INTERNAL MEDICINE 02/28/17 10/23/23 Joann Marquez, ANP- [address] [facility] [address] [place] [address] [place] Engineering Aid NURSE PRACTITIONER 02/28/17 documented as of this encounter
--- OUTSIDE RECORDS SUMMARY | 2024-10-26 23:06 | XMS_ITS | Encounter Summary ---
Author Organization [facility] Address [address] [place] [address]. [place], [place] [address] [place] [address] Care Team Providers Care Electronic Warfare Technical Name Role Phone Dennis Doran MD Primary Care Provider [phone] 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
--- OUTSIDE RECORDS SUMMARY | 2024-10-26 23:06 | XMS_ITS | Encounter Summary ---
Author Organization [facility] [place] [facility] Address [address] [place] [address]. 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 No / Unsure 12/19/2021 10:29 AM CONCRETE FLOATER documented as of this encounter Plan of Treatment Not on file documented as of this encounter Visit Diagnoses Not on filedocumented in this encounter Care Teams Credit Risk Officer Relationship Specialty Start Date End Date Dennis Doran MD PCP - General INTERNAL MEDICINE 02/28/17 10/23/23 Joann Marquez ANP-BC [address] [facility] [address] [place] [address] [place] Safety Consultant NURSE PRACTITIONER 02/28/17 documented as of this encounter
--- OUTSIDE RECORDS SUMMARY | 2024-10-26 23:06 | XMS_ITS | Encounter Summary ---
Author Organization [facility] Address [address] [place] [address]. [place], [place] [address] [place] [address] Care Team Providers Care Oracle Pl Sql Developer Name Role Phone Dennis Doran MD Primary Care Provider [phone] Joann Marquez [facility]- Unavailable [phone] Reason for Visit * Reason Onset Date Comments Schedule Procedure 12/20/2021 Encounter Details Date Type Department Care Team (Late st Contact Info) Description 12/20/2021 Telephone [facility] ld [address] [place] [address] Dieter Arechiga MD [address] [address] Schedule Procedure Social History Tobacco [...] 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 Labs and COVID test to be done01/06 at [facility] in [place]. Instruction letter mailed. GER CHEMICAL * Kelsey Marsh LPN - 12/20/2021 11:[address] Arechiga saw pt today after abnormal nuclear and starting Imdur. Pt continues with chest pain and Dr Arechiga recommends cath. History of CAD, stent, diabetic. GER CHEMICAL documented in this encounter Plan of Treatment Not on file documented as of this encounter Visit Diagnoses Not on filedocumented in this encounter Additional Health Concerns Infection Onset Date Last Indicated Resolved Time COVID-19 Rule Out 01/06/2022 01/06/2022 01/07/2022 2:32 PM CDT documented as of this encounter Care Teams Oracle Pl Sql Developer Relationship Specialty Start Date End Date Dennis Doran MD PCP - General INTERNAL MEDICINE 02/28/17 10/23/23 Joann Marquez ANP- [address] [facility] [address] [place] [address] [place] Production Estimator NURSE PRACTITIONER 02/28/17 documented as of this encounter
--- OUTSIDE RECORDS SUMMARY | 2024-10-26 23:06 | XMS_ITS | Encounter Summary ---
Author Organization [facility] Address [address] [place] [address]. 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 No / Unsure 12/02/2021 9:21 AM SCIENTIFIC INFORMATICS ANALYST documented as of this encounter Progress Notes * Dieter Wade MD - 12/04/2021 3:00 PM CST Agree NTIFIC INFORMATICS ANALYST * MARIO Mendenhall - 12/02/2021 4:55 PM [...] Patient voices understanding. Results routed to PCP. NTIFIC INFORMATICS ANALYST NTIFIC INFORMATICS ANALYST * MARIO Mendenhall - 12/02/2021 3:42 PM CST Please advise. NTIFIC INFORMATICS ANALYST * Collette Giles RN - 12/02/2021 3:31 PM CST Please review stress test. NTIFIC INFORMATICS ANALYST documented in this encounter Plan of Treatment Not on file documented as of this encounter Visit Diagnoses Not on filedocumented in this encounter Care Teams Textile Engineer Relationship Specialty Start Date End Date Dennis Doran MD PCP - General INTERNAL MEDICINE 02/28/17 10/23/23 Joann Marquez, [facility]- [address] [facility] [address] [place] [address] [place] Leg Breaker NURSE PRACTITIONER 02/28/17 documented as of this encounter
--- OUTSIDE RECORDS SUMMARY | 2024-10-26 23:06 | XMS_ITS | Encounter Summary ---
Author Organization [facility] Address [facility] [place] [place] [address] [place] [address] Care Team Providers Care Night Baker Name Role Phone Dennis Crump MD Primary Care Provider [phone] Joann Marquez Unavailable [phone] Reason for Visit * Reason Comments Follow Up Encounter Details Date Type Department Care Team ([facility] st Contact Info) Description 01/21/2021 1:30 PM CDT [facility] [address] [place] [address] Joann Marquez ANP-BC [address] 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 Medications: Current Outpatient Medications: ??? clopidogrel [...] Comments: Diagnoses/Impression: 1. Coronary artery disease involving [place] coronary artery of white mountain heart without angina pectoris 2. Tobacco use [...] denies associated symp toms. He said his rap artist is going to check thyroid function studies [...] EKG today shows sinus rhythm with septal MO, age indeterminate with no significant change. His [...] Visit Diagnoses Diagnosis Coronary artery disease involving [place] coronary artery of [place] heart without angina pectoris- Primary Tobacco use Tobacco use disorder Essential hypertension Unspecified essential hypertension Hyperlipidemia, unspecified hyperlipidemia type documented in this encounter Care Teams Night Baker Relationship Specialty Start Date End Date Dennis Crump MD PCP - General INTERNAL MEDICINE 02/28/17 10/23/23 Joann Marquez ANP-BC [address] [facility] [address] [address] [place] Second Shift Supervisor NURSE PRACTITIONER 02/28/17 documented as of this encounter
--- OUTSIDE RECORDS SUMMARY | 2024-10-26 23:06 | XMS_ITS | Encounter Summary ---
Author Organization [facility] Address [address] [place] [address]. 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 PERFORMED BY NUCLEIC ACID AMPLIFICATION PCR FIRST TEST UNKNOWN 01/06/2022 11:48 AM CDT [facility] EMPLOYED IN HEALTHCARE NO 01/06/2022 11:48 AM CDT [facility] SYMPTOMATIC DEFINED BY CDC UNKNOWN 01/06/2022 11:48 AM CDT [facility] HOSPITALIZATION STATUS NO 01/06/2022 11:48 AM CDT [facility] RESIDENT OF [facility] NO 01/06/2022 11:48 AM CDT [facility] NASAL STRUCTURE / Unknown 01/06/2022 11:51 AM CDT Nima Hollis MD MICROBIOLOGY - GENERAL ORDERAB LES Final Result [facility] [address] [facility] [place] [address], [facility] [address] [place] [address], * (ABNORMAL) BASIC METABOLIC PANEL (01/06/2022 11:51 AM CDT) GLUCOSE 157(H) 70 - 99 MG/DL 01/06/2022 12:21 PM CDT [facility] BUN 38(H) 7 - 18 MG/DL 01/06/2022 12:21 PM CDT [facility] CREATININE S/P/B 2.29(H) 0.50 - 1.20 MG/DL 01/06/2022 12:21 PM CDT [facility] SODIUM S/P/B 137 136 - 145 MMOL/L 01/06/2022 12:21 PM CDT [facility] POTASSIUM S/P/B 4.6 3.5 - 5.1 MMOL/L 01/06/2022 12:21 PM CDT [facility] CHLORIDE S/P/B 106 100 - 108 MMOL/L 01/06/2022 12:21 PM CDT [facility] CO2 20.8(L) 21.0 - 32.0 MMOL/L 01/06/2022 12:21 PM CDT [facility] CALCIUM S/P/B 8.5 8.5 - 10.1 MG/DL 01/06/2022 12:21 PM CDT [facility] ANION GAP 10.2 5.0 - 15.0 MMOL/L 01/06/2022 12:21 PM CDT [facility] BUN CREATININE RATIO 16.6 6 - 26 01/06/2022 12:21 PM CDT [facility] EGFR NON-AFR. AMER. 33(L) >90 ML/MIN/1.7 3 M2 01/06/2022 12:21 PM T [facility] EGFR AFR. AMER. 38(L) >90 ML/MIN/1.7 3 M2 01/06/2022 12:21 PM CDT [facility] Comment: NOTE: eGFR is not calculated for patients <18 years of age. This is an estimated GFR (CKD EPI) and should not be used for calculating drug doses. 01/06/2022 11:5 1 AM CDT us Nima Hollis MD LABORATORY Final Result [address] [place] [address], [place] * (ABNORMAL) CBC, AUTO, NO DIFF (01/06/2022 11:51 AM CDT) WBC 8.1 4.5 - 11.0 x10'3/uL 01/06/2022 12:25 PM CDT [facility] RBC 4.16(L) 4.5 - 5.9 x10'6/uL 01/06/2022 12:25 PM CDT [facility] HGB 12.6 12.0 - 16.0 G/DL 01/06/2022 12:25 PM CDT [facility] HCT 37.4 37.0 - 49.0 % 01/06/2022 12:25 PM CDT [facility] MCV 89.9 80.0 - 100.0 FL 01/06/2022 12:25 PM CDT [facility] MCH 30.3 26.0 - 34.0 PG 01/06/2022 12:25 PM CDT [facility] MCHC 33.7 31.0 - 37.0 G/DL 01/06/2022 12:25 PM CDT [facility] RDW 13.4 11.6 - 14.8 % 01/06/2022 12:25 PM CDT [facility] PLT 191 140 - 415 x10'3/uL 01/06/2022 12:25 PM CDT [facility] MPV 11.3 7.0 - 12.0 FL 01/06/2022 12:25 PM CDT [facility] 01/06/2022 11:5 1 AM CDT us Nima Hollis MD LABORATORY Final Result [facility] [address] [place] [address] [place] [address], [place] documented in this encounter Visit Diagnoses Diagnosis Abnormal cardiovascular stress test Other nonspecific abnormal cardiovascular system function study Pre-operative laboratory examination Pre-procedural laboratory examination documented in this encounter Additional Health Concerns Infection Onset Date Last Indicated Resolved Time COVID-19 Rule Out 01/06/2022 01/06/2022 01/07/2022 2:32 PM CDT documented as of this encounter Care Teams Hydro Operator Relationship Specialty Start Date End Date Dennis Doran MD PCP - General INTERNAL MEDICINE 02/28/17 10/23/23 Joann Marquez, ANP- [address] [facility] [address] [place] [address] [place] Integration Aide NURSE PRACTITIONER 02/28/17 documented as of this encounter
--- OUTSIDE RECORDS SUMMARY | 2024-10-26 23:06 | XMS_ITS | Encounter Summary ---
Author Organization [facility] Address [address] [place] [address]. 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
--- OUTSIDE RECORDS SUMMARY | 2024-10-26 23:06 | XMS_ITS | Encounter Summary ---
Author Organization [facility] Address [facility]6 [facility]. 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
--- OUTSIDE RECORDS SUMMARY | 2024-10-26 23:06 | XMS_ITS | Encounter Summary ---
Author Organization [facility] Address [address] [place] [address]. 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 vitamin D2, ergocalciferol, 83116 UNITS capsule, Take 50,000 Units by mouth [...] findings. Diagnoses/Impression: 1. Coronary artery disease involving [place] coronary artery of [place] heart without angina pectoris 2. 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 We will plan on 1 year followup or earlier if theneed arises. documented in this encounter Plan of Treatment Not on file documented as of this encounter Results * (ABNORMAL) LIPID PANEL (04/26/2022) Pathologist [facility] CHOLESTEROL 280(A) 0 - 200 HDL 36(A) >=40 TRIGLYCERIDES 776(A) 0 - 150 LDL (CALCULATED) Comment:unable to calculate 04/26/2022 Dieter Wade MD LABORATORY Final Result documented in this encounter Visit Diagnoses Diagnosis Coronary artery disease involving g[place] coronary artery of [place] heart without angina pectoris- Primary Primary hypertension Unspecified essential hypertension Hyperlipidemia, unspecified hyperlipidemia type documented in this encounter Care Teams Digital Media Intern Relationship Specialty Start Date End Date Dennis Crump MD PCP - General INTERNAL MEDICINE 02/28/17 10/23/23 Joann Marquez ANP- [address] [facility] [address] [place] [address] [place] Customer Engineer NURSE PRACTITIONER 02/28/17 documented as of this encounter
--- OUTSIDE RECORDS SUMMARY | 2024-10-26 23:06 | XMS_ITS | Encounter Summary ---
Author Organization [facility] Address Critical access hospital6 [facility]. 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
--- OUTSIDE RECORDS SUMMARY | 2024-10-26 23:06 | XMS_ITS | Encounter Summary ---
Author Organization [facility] Address [facility]. 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
--- OUTSIDE RECORDS SUMMARY | 2024-10-26 23:06 | XMS_ITS | Encounter Summary ---
Author Organization [facility] Address Critical access hospital6 [facility]. 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 [address] [place] [address] [place] Lap Polisher NURSE PRACTITIONER 02/28/17 documented as of this encounter
--- OUTSIDE RECORDS SUMMARY | 2024-10-26 23:06 | XMS_ITS | Encounter Summary ---
Author Organization [facility] Address [address] [place] [address]. [place] [address] [place] [address] Care Team Providers Care Genetic Scientist Name Role Phone Dennis Doran MD Primary Care Provider [phone] Joann Marquez-ERICA Unavailable [phone] Reason for Visit * Reason Onset Date Comments Advise 12/24/2019 Encounter Details Date Type Department Care Team ([facility] st Contact Info) Description 12/24/2019 Telephone [email or web address] [address] [place] [address] Joann Marquez, A[place]LI[place]O-BC [address] [facility] [address] [place] [address] Advise Social History Tobacco Use [...] 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 See addendum to clinic note. 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 [address] [place] [address] [place] Topographical Engineer NURSE PRACTITIONER 02/28/17 documented as of this encounter
--- OUTSIDE RECORDS SUMMARY | 2024-10-26 23:06 | XMS_ITS | Encounter Summary ---
Author Organization [facility] Address [address] [place] [address]. 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 [facility] ?[address] [place], [place] ??[address] ? Test Date: ?2023-11-06 Pat Name: ? TANK KOWALSKI ?Department: ?? 105 ? Room: ? Gender: ? Male ? [place]: ?? bjs : ?1975 ? Requested By: ABHINAV GOULD Order Number: [id number] ?Reading MD: ?? Abhinav Gould ? Measurements Intervals ?[place] ? Rate: ? 74 ? P: ?33 WY: ? 130 ?QRS: ?30 QRSD: ? 84 ? T: ?55 QT: ? 373 ? QTc: ?414 ? Interpretive Statements SINUS RHYTHM po SEPTAL MYOCARDIAL INFARCTION, OF INDETERMINATE AGE ICU Procedure Note Abhinav Gould MD - 11/06/2023 [facility], [place] [address] [place] [address] Test Date: 2023-11-06 Pat Name: TANK KOWALSKI Department: 105 Room: Gender: Male [place]: [facility] : 1975 Requested By: ABHINAV GOULD Order Number: [id number] Reading MD: Abhinav Gould Measurements Intervals [place] Rate: 74 P: 33 WY: 130 QRS: 30 QRSD: 84 T: 55 QT: 373 QTc: 414 Interpretive Statements SINUS RHYTHM po SEPTAL MYOCARDIAL INFARCTION, OF INDETERMINATE AGE ICU Abhinav Gould MD PROCEDURES-ORDERABLE NO CHARGE F inal Result [facility] documented in this encounter Visit Diagnoses Diagnosis Coronary artery disease involving [place] coronary artery of [place] heart without angina pectoris- Primary Coronary artery disease of [place] artery of [place] heart with stable angina pectoris (CMS/HCC)- Primary Mixed hyperlipidemia Primary hypertension Unspecified essential hypertension Tobacco use Tobacco use disorder documented in this encounter Care Teams Manager Event Relationship Specialty Start Date End Date Denisha Hansen PA [address] [place] [address] PCP - General PHYSICIAN ROTARY DRILL OPERATOR HELPER 10/24/23 Joann Marquez, ANP- [address] [facility] [address] [place] [address] [place] Cad Intern NURSE PRACTITIONER 02/28/17 documented as of this encounter
--- OUTSIDE RECORDS SUMMARY | 2024-10-26 23:06 | XMS_ITS | Encounter Summary ---
Author Organization [facility] Address [address] [place] [address]. [place], [place] [address] [place] [address] Care Team Providers Care Sprinkler Tender Name Role Phone Dennis Doran MD Primary Care Provider [phone] Joann Marquez [facility]- Unavailable [phone] Reason for Visit * Reason Onset Date Comments Information 01/06/2022 Encounter Details Date Type Department Care Team ([facility] st Contact Info) Description 01/06/2022 Telephone [facility] [address] [place] [address] Nima Hollis MD [address] [place] [address] Information Social History Tobacco Use [...] 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 * Collette Giles RN - [...] documented as of this encounter Care Teams Sprinkler Tender Relationship Specialty Start Date End Date Dennis Doran MD PCP - General INTERNAL MEDICINE 02/28/17 10/23/23 Joann Marquez ANP- [address] [place] [address] [address] [place] [address] [place] Director And Professor NURSE PRACTITIONER 02/28/17 documented as of this encounter
--- OUTSIDE RECORDS SUMMARY | 2024-10-26 23:06 | XMS_ITS | Encounter Summary ---
Author Organization [facility] Address [address] [place] [address]. [place], [place] [address] [place] [address] Care Team Providers Care Office Supervisor Name Role Phone Joann Marquez Bernard [facility]- Unavailable [phone] Denisha Hansen Primary Care Provider [phone] Reason for Referral * Imaging (Routine) - Closed Specialty Diagnoses / Procedures Referred By Cheyanne puentes Referred To Contact RADIOLOGY Diagnoses Localized swelling, mass and lump, neck Procedures CT SOFT TISSUE NECK WO CON Denisha Hansen PA [facility] [place] [address] Phone: tel: fax: Referral ID Status Reason Start Date Expiration Date Visits Re quested Visits Authorized [id number] Closed CT 09/27/2023 12/26/2023 1 1 ER ETCHER Reason for Visit * Imaging (Routine) - Closed Specialty Diagnoses / Procedures Referred By Cheyanne puentes Referred To Contact RADIOLOGY Diagnoses Localized swelling, mass and lump, neck Procedures CT SOFT TISSUE NECK WO CON Denisha Hansen PA [facility] [place] [address] Phone: tel: fax: Referral ID Status Reason Start Date Expiration Date Visits Re quested Visits Authorized [id number] Closed CT 09/27/2023 12/26/2023 1 1 Encounter Details Date Type Department Care Team (Latest Contact Info) Description 10/24/2023 8:55 AM COPPER ETCHER - 10/24/2023 11:59 PM [facility] 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 10/28/2021 06/11/20 24 documented as of this encounter Plan of Treatment Not on file documented as of this encounter Procedures Procedure Name Priority Date/Time Associated Diagnosis Comments CT SOFT TISSUE NECK WO CON Routine 10/24/2023 9:30 AM COPPER ETCHER Localized swelling, mass and lump, neck documented in this encounter Results * CT SOFT TISSUE NECK WO CON (10/24/2023 9:30 AM COPPER ETCHER) Anatomical Region Laterality Modality Neck Computed Tomogra phy 10/26/2023 9:20 AM COPPER ETCHER Impressions 10/26/2023 9:28 AM COPPER ETCHER IMPRESSION: 1. Well circumscribed low density 1.8 [...] 10/26/2023 9:20 AM Narrative 10/26/2023 9:28 AM COPPER ETCHER INDICATION: Anterior neck lump. EXAMINATION: Unenhanced CT [...] neck documented in this encounter Care Teams Office Supervisor Relationship Specialty Start Date End Date Denisha Hansen PA [address] [place] [address] PCP - General PHYSICIAN DIRECTOR OF CORPORATE SPONSORSHIPS 10/24/23 Joann Marquez, ANP- [address] [place] [facility] [address] [place] [address] [place] Rotor Blade Installer NURSE PRACTITIONER 02/28/17 documented as of this encounter
--- OUTSIDE RECORDS SUMMARY | 2024-10-26 23:06 | XMS_ITS | Encounter Summary ---
Author Organization [facility] Address [address] [place] [address]. 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 No / Unsure 12/19/2021 10:29 AM HOT ROOM ATTENDANT documented as of this encounter Plan of Treatment Not on file documented as of this encounter Visit Diagnoses Not on filedocumented in this encounter Additional Health Concerns Infection Onset Date Last Indicated Resolved Time COVID-19 Rule Out 01/06/2022 01/06/2022 01/07/2022 2:32 PM CDT documented as of this encounter Care Teams Community Center Director Relationship Specialty Start Date End Date Dennis Doran MD PCP - General INTERNAL MEDICINE 02/28/17 10/23/23 Denisha Hansen PA [address] [place] [address] PCP - General PHYSICIAN SLIME PLANT OPERATOR 10/24/23 Joann Marquez, ANP- [address] [place] [address] [address] [place] [address] [place] Trust Clerk NURSE PRACTITIONER 02/28/17 documented as of this encounter
--- OUTSIDE RECORDS SUMMARY | 2024-10-26 23:06 | XMS_ITS | Encounter Summary ---
Author Organization [facility] Address [address] [place] [address]. 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 No / Unsure 11/30/2021 11:51 AM APPLICATION SOFTWARE DEVELOPER documented as of this encounter Plan of Treatment Not on file documented as of this encounter Visit Diagnoses Not on filedocumented in this encounter Care Teams Decorator Consultant Relationship Specialty Start Date End Date Dennis Doran MD PCP - General INTERNAL MEDICINE 02/28/17 10/23/23 Joann Marquez ANP-BC [address] [facility] [address] [place] [address] [place] Locksmith NURSE PRACTITIONER 02/28/17 documented as of this encounter
--- OUTSIDE RECORDS SUMMARY | 2024-10-26 23:06 | XMS_ITS | Encounter Summary ---
Author Organization [facility] Address [address] [place] [address]. [place] [address] [place] [address] Care Team Providers Care Neonatal Social Worker Name Role Phone Dennis Doran MD Primary Care Provider [phone] Joann Marquez-ERICA Unavailable [phone] Encounter Details Date Type Department Care Team ([facility] st Contact Info) Description 05/29/2023 Abstract [facility] [address] [place] [address] Joann Marquez ANP-BC [address] 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 Not on file Not [...] ESTIMATE 26 Narrative Resulting Agency Comment Result [facility] Dennis Doran MD LABORATORY Final Result * (ABNORMAL) HEMOGLOBIN, GLYCOSYLATED (04/20/2023) HGB A1C 8.3(A) <=5.7 % Narrative Resulting Agency Comment Result [facility] Dennis Doran MD LABORATORY Final Result * THYROID STIM HORMONE, TSH (04/20/2023) TSH 2.71 Narrative Resulting Agency Comment Result [facility] Dennis Doran MD LABORATORY Final Result * MAGNESIUM (04/20/2023) MAGNESIUM 1.6 Narrative Resulting Agency Comment Result [facility] Dennis Doran MD LABORATORY Final Result * (ABNORMAL) LIPID PANEL (08/09/2022) CHOLESTEROL 239(A) <=200 TRIGLYCERIDES 353(A) <=150 HDL 34(A) >=40 LDL (CALCULATED) 151(A) <=70 Narrative Resulting Agency Comment Result [facility] Dennis Doran MD LABORATORY Final Result documented in this encounter Visit Diagnoses Not on filedocumented in this encounter Care Teams Neonatal Social Worker Relationship Specialty Start Date End Date Dennis Doran MD PCP - General INTERNAL MEDICINE 02/28/17 10/23/23 Joann Marquez, ANP- [address] [facility] [address] [place] [address] [place] Building Drafter NURSE PRACTITIONER 02/28/17 documented as of this encounter
--- OUTSIDE RECORDS SUMMARY | 2024-10-26 23:06 | XMS_ITS | Encounter Summary ---
Author Organization [facility] Address [facility] 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 Not on file Not on file Not on file Not on file Not on file Not on file documented as of this encounter Plan of Treatment Not on file documented as of this encounter Procedures Procedure Name Priority Date/Time Associated Diagnosis Comments HEMOGLOBIN, GLYCOSYLATED Routine 02/10/2019 documented in this encounter Results * HEMOGLOBIN, GLYCOSYLATED (02/10/2019) HGB A1C 8.6 02/10/2019 Denisha MCLCURE LABORATORY Final Result documented in this encounter Visit Diagnoses Not on filedocumented in this encounter Additional Health Concerns Infection Onset Date Last Indicated Resolved Time COVID-19 Rule Out 01/06/2022 01/06/2022 01/07/2022 2:32 PM CDT documented as of this encounter Care Teams Oil Well Driller Relationship Specialty Start Date End Date Dennis Doran MD PCP - General INTERNAL MEDICINE 02/28/17 10/23/23 Denisha Hansen PA [address] [place] [address] PCP - General PHYSICIAN OPERATIONS CHIEF 10/24/23 Joann Marquez, ANP-BC [address] [facility] [address] [place] [address] [place] Chief Chemist NURSE PRACTITIONER 02/28/17 documented as of this encounter
--- OUTSIDE RECORDS SUMMARY | 2024-10-26 23:06 | XMS_ITS | Encounter Summary ---
Author Organization [facility] Address [address] [place] [address]. 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 No / Unsure 10/28/2021 11:15 AM RESEARCH TECH documented as of this encounter Plan of Treatment Not on file documented as of this encounter Visit Diagnoses Not on filedocumented in this encounter Care Teams Grey Tender Relationship Specialty Start Date End Date Dennis Doran MD PCP - General INTERNAL MEDICINE 02/28/17 10/23/23 Joann Marquez ANP-BC [address] [facility] [address] [place] [address] [place] Director Of Industrial Relations NURSE PRACTITIONER 02/28/17 documented as of this encounter
--- OUTSIDE RECORDS SUMMARY | 2024-10-26 23:06 | XMS_ITS | Encounter Summary ---
Author Organization [facility] Address [address] [place] [address]. 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
--- OUTSIDE RECORDS SUMMARY | 2024-10-26 23:06 | XMS_ITS | Encounter Summary ---
Author Organization [facility] Address [address] [place] [address]. [place], [place] [address] [place] [address] Care Team Providers Care Surface Water Technician Name Role Phone Dennis Doran MD Primary Care Provider [phone] Ruthy Norris-ERICA Unavailable [phone] Reason for Visit * Imaging (Routine) - Closed Specialty Diagnoses / Procedures Referred By Cheyanne puentes Referred To Contact RADIOLOGY Diagnoses Coronary artery disease of [place] artery of [place] heart with stable angina pectoris ([facility]) Procedures NM PHARM NUC STRESS TEST 2DAY NM EXER NUC STRESS TEST 1DAY Ruthy Norris ANP-BC [address] [place] [id number] [place] [address] Phone: tel: fax: Referral ID Status Reason Start Date Expiration Date Visits Re quested Visits Authorized [id number] Closed 11/08/2021 12/09/2022 1 2 Encounter Details Date Type Department Care Team (Latest Contact Info) Description 12/02/2021 9:21 AM CONGRESSIONAL ASSISTANT - 12/02/2021 9:22 AM [facility] Encounter [facility] Nuclear Cardiology [facility] [place] [facility] [address] [place] [address] Ruthy Norris ANP-BC [address] [place] [address] Discharge Disposition: Home or Self [...] 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 No / Unsure 12/02/2021 9:21 AM CONGRESSIONAL ASSISTANT documented as of this encounter Medications at [...] 02/23/2014 12/21/19 2 2 vitamin D2, ergocalciferol, 94581 UNITS capsule Take 50,000 Units by mouth once a week. 10/28/2021 4 documented as of this encounter Plan of Treatment Not on file documented as of this encounter Procedures Procedure Name Priority Date/Time Associated Diagnosis Comments NM PHARM NUC STRESS TEST 2DAY W TRACING Routine 12/02/2021 11:16 AM CONGRESSIONAL ASSISTANT Coronary artery disease of [place] artery of [place] heart with stable angina pectoris documented in this encounter Results * NM PHARM NUC STRESS TEST 2DAY (12/02/2021 11:16 AM CONGRESSIONAL ASSISTANT) Anatomical Region Laterality Modality Cardiac Nuclear Medicine 12/02/2021 12:0 0 PM CONGRESSIONAL ASSISTANT Narrative 12/02/2021 3:09 PM CONGRESSIONAL ASSISTANT ?MYOCARDIAL PERFUSION SCAN Pat.Name: ??TANK KOWALSKI ?Pat.ID: ?[id number] ? St.Date: ?? 12/02/2021 ? Refer.: ??RUTHY NORRIS ? Exam Time: 12:00:00 PM ? Study Type:NC Ht Muscle Image SPECT Multi Nuclear Height: ?71in ?Weight: ?196lb ? BSA: ? 2.09 m2 ?Age: ??1975,46Y ? Sex: ? MALE ?Sonogrphr: Jose Rogers, SEPARATOR INSERTER ? Pat. Stat.:Outpatient ? Reason for Study:coronary artery disease of [place] artery of [place] heart ??with stable angina pectoris Procedures: Two [...] MYOCARDIAL PERFUSION SCAN Pat.Name: TANK KOWALSKI Pat.ID: [id number] St.Date: 12/02/2021 Refer.MD: RUTHY NORRIS Exam Time: 12:00:00 PM Study Type:NC Ht Muscle Image SPECT Multi Nuclear Height: 71in Weight: 196lb BSA: 2.09 m2 Age: 8 1975,46Y Sex: MALE Sonogrphr: Jose Rogers, [facility] Pat. Stat.:Outpatient Reason for Study:coronary artery disease of [place] artery of [place] heart with stable angina pectoris Procedures: Two [...] Visit Diagnoses Diagnosis Coronary artery disease of [place] artery of [place] heart with stable angina pectoris (CMS/HCC) Persistent atrial fibrillation (CMS/HCC HHS/HCC)- Primary Atrial fibrillation CAD (coronary artery disease) Coronary atherosclerosis of unspecified type of vessel, [place] or graft documented in this encounter Care Teams Surface Water Technician Relationship Specialty Start Date End Date Dennis Doran MD PCP - General INTERNAL MEDICINE 02/28/17 10/23/23 Ruthy Norris ANP- [address] [facility] [address] [place] [address] [place] Cross Cut Saw Operator NURSE PRACTITIONER 02/28/17 documented as of this encounter
--- OUTSIDE RECORDS SUMMARY | 2024-10-26 23:06 | XMS_ITS | Encounter Summary ---
Author Organization [facility] Address [facility] [place] [address] [place] [address] Care Team Providers Care Canvas Shrinker Name Role Phone Dennis Doran MD Primary Care Provider [phone] Joann Marquez-ERICA Unavailable Reason for Visit * Reason Onset Date Comments Appointment Request 05/28/2023 Encounter Details Date Type Department Care Team ([facility] st Contact Info) Description 05/28/2023 Telephone [place] [facility] [address] [place] [address] Joann Marquez, AURELIANO-BC [address] [facility] [address] [place] [address] Appointment Request Social History Tobacco [...] 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 Patient agreed to date, time, and location. [...] Primary documented in this encounter Care Teams Canvas Shrinker Relationship Specialty Start Date End Date Dennis Doran MD PCP - General INTERNAL MEDICINE 02/28/17 10/23/23 Joann Marquez ANP- [address] [facility] [address] [place] [address] [place] Technical Support Internship NURSE PRACTITIONER 02/28/17 documented as of this encounter
--- OUTSIDE RECORDS SUMMARY | 2024-10-26 23:06 | XMS_ITS | Encounter Summary ---
Author Organization [facility] Address [address] [place] [address]. 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
--- OUTSIDE RECORDS SUMMARY | 2024-10-26 23:06 | XMS_ITS | Encounter Summary ---
Author Organization [facility] Address [address] [place] [address]. 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
--- OUTSIDE RECORDS SUMMARY | 2024-10-26 23:06 | XMS_ITS | Encounter Summary ---
Author Organization [facility] Address [facility] [place] [address] [place] [address] Care Team Providers Care Facility Assistant Name Role Phone Dennis Doran MD Primary Care Provider [phone] Joann Marquez Unavailable [phone] Reason for Visit * Reason Onset Date Comments Record Request 01/21/2021 Encounter Details Date Type Department Care Team ([facility] st Contact Info) Description 01/21/2021 Telephone [facility] [address] [place] [address] Joann Marquez ANP-BC [address] [facility] [address] [place] [address] Record Request Social History Tobacco [...] 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 Doran's office to be faxed to [phone]. * MARIO Mendenhall - 01/21/2021 3:39 PM CDT Please request most recent CBC, CMP, Lipid from primary service. Thanks. documented in this encounter Plan of Treatment Not on file documented as of this encounter Visit Diagnoses Diagnosis Coronary artery disease involving [place] coronary artery of [place] heart without angina pectoris- Primary Essential hypertension Unspecified essential hypertension Hyperlipidemia, unspecified hyperlipidemia type Encounter for long-term current use of medication documented in this encounter Care Teams Facility Assistant Relationship Specialty Start Date End Date Dennis Doran MD PCP - General INTERNAL MEDICINE 02/28/17 10/23/23 Joann Marquez, ANP- [address] [facility] [address] [place] [address] Riddle Shipping Order Clerk NURSE PRACTITIONER 02/28/17 documented as of this encounter
--- OUTSIDE RECORDS SUMMARY | 2024-10-26 23:06 | XMS_ITS | Encounter Summary ---
Author Organization [facility] Address [address] [place] [address]. 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 - 01/24/2021 9:24 AM CDT ? [facility], [facility] ?[address], [place] ??[address] ? Test Date: ?2021-01-21 Pat Name: ? TANK CAMPBELLJOSE ANGEL ?Department: ? Room: ? Gender: ? Male ? Training Development Manager: ?? jdc : ?1975 ? Requested By: NATE SUTTON Order Number: [id number] ?Reading MD: ?? Nate Sutton ? Measurements Intervals ?[place] ? Rate: ? 70 ? P: ?20 [place]: ? 137 ?QRS: ?3 QRSD: ? 81 ? T: ?40 QT: ? 363 ? QTc: ?393 ? Interpretive Statements SINUS RHYTHM Cannot rule out SEPTAL MYOCARDIAL INFARCTION, OF INDETERMINATE AGE No significant change since prior tracing Procedure Note Nate Sutton MD - 01/24/2021 [facility], [place] [address] [place] [address] Test Date: 2021-01-21 Pat Name: TANK KOWALSKI Department: Room: Gender: Male Training Development Manager: maddie : 1975 Requested By: NATE SUTTON Order Number: [id number] Reading MD: Nate Sutton Measurements Intervals [place] Rate: 70 P: 20 [place]: 137 QRS: 3 QRSD: 81 T: 40 QT: 363 QTc: 393 Interpretive Statements SINUS RHYTHM Cannot rule out SEPTAL MYOCARDIAL INFARCTION, OF INDETERMINATE AGE No significant change since prior tracing us Nate Wade MD PROCEDURES-ORDERABLE NO CHARG E Final Result [facility] documented in this encounter Visit Diagnoses Diagnosis Coronary artery disease involving tribal coronary artery of tribal heart without angina pectoris- Primary documented in this encounter Care Teams Sales Associate Relationship Specialty Start Date End Date Dennis Doran MD PCP - General INTERNAL MEDICINE 02/28/17 10/23/23 Joann Marquez, [facility]- [address] [facility] [address] [place] [address] [place] Linderman Operator NURSE PRACTITIONER 02/28/17 documented as of this encounter
--- OUTSIDE RECORDS SUMMARY | 2024-10-26 23:06 | XMS_ITS | Encounter Summary ---
Author Organization [facility] Address [address] [place] [address]. [place], [place] [address] [place] [address] Care Team Providers Care Bruise Trimmer Name Role Phone Dennis Doran MD Primary Care Provider [phone] Joann Marquez [facility] Unavailable [phone] Reason for Referral * Imaging (Routine) - Closed Specialty Diagnoses / Procedures Referred By Cheyanne puentes Referred To Contact RADIOLOGY Diagnoses Chest pain Procedures CT CHEST W Denisha Liu PA Phone: tel: fax: Referral ID Status Reason Start Date Expiration Date Visits Re quested Visits Authorized [id number] Closed 01/10/2022 04/12/2022 2 2 Reason for Visit * Imaging (Routine) - Closed Specialty Diagnoses / Procedures Referred By Cheyanne puentes Referred To Contact RADIOLOGY Diagnoses Chest pain Procedures CT CHEST W Denisha Liu PA Phone: tel: fax: Referral ID Status Reason Start Date Expiration Date Visits Re quested Visits Authorized [id number] Closed 01/10/2022 04/12/2022 2 2 Encounter Details Date Type Department Care Team (Latest Contact Info) Description 01/20/2022 7:59 AM CDT - 01/20/2022 11:59 PM CDT 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 01/20/2022 8:59 AM CDT Denisha [facility] Final Result [facility] [address] [place] [address], * CT CHEST W CON (01/20/2022 8:33 [...] Arm documented in this encounter Care Teams Bruise Trimmer Relationship Specialty Start Date End Date Dennis Doran MD PCP - General INTERNAL MEDICINE 02/28/17 10/23/23 Joann Marquez, ANP- [address] [facility] [place] [address] [place] [address] [place] Manager Terminal NURSE PRACTITIONER 02/28/17 documented as of this encounter
--- OUTSIDE RECORDS SUMMARY | 2024-10-26 23:06 | XMS_ITS | Encounter Summary ---
Author Organization [facility] Address [facility]6 [facility] [place] [address] [place] [address] Care Team Providers Care Tank Truck Mechanic Name Role Phone Dennis Doran MD Primary Care Provider [phone] Joann Marquez-ERICA Unavailable Reason for Visit * Reason Onset Date Comments Medication Request 10/01/2023 Encounter Details Date Type Department Care Team ([facility] st Contact Info) Description 10/01/2023 Telephone [facility] ld [address] [place] [address] Joann Marquez, AURELIANO-BC [address] 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 BODY TECHNICIAN * Rosana Felipe - 10/01/2023 9:20 AM CST PCCLVOICEMAILMESSAGEPCCL VOICE MAIL DATE/TIME:10/01/23 @ 9:16am CALLER: patient #: [phone] PROVIDER/NEW PT: Joann Marquez REASON FOR CALL: vm says patient needs a prescription refill and needs to schedule an appointment REQUEST HANDLED AND HOW: IF NOT HANDLED, ENCOUNTER NOTE SENT TO: message to nurse board BODY TECHNICIAN documented in this encounter Plan of Treatment Not on file documented as of this encounter Visit Diagnoses Not on filedocumented in this encounter Care Teams Tank Truck Mechanic Relationship Specialty Start Date End Date Dennis Doran MD PCP - General INTERNAL MEDICINE 02/28/17 10/23/23 Joann Marquez, ANP- [address] [facility] [address] [place] [address] [place] Industrial Retrofit Designer NURSE PRACTITIONER 02/28/17 documented as of this encounter
--- OUTSIDE RECORDS SUMMARY | 2024-10-26 23:06 | XMS_ITS | Encounter Summary ---
Author Organization [facility] Address [address] [place] [address]. 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 No / Unsure 12/02/2021 9:21 AM MOTOR EQUIPMENT CAPTAIN documented as of this encounter Plan of Treatment Not on file documented as of this encounter Visit Diagnoses Not on filedocumented in this encounter Care Teams Product Safety Coordinator Relationship Specialty Start Date End Date Dennis Doran MD PCP - General INTERNAL MEDICINE 02/28/17 10/23/23 Joann Marquez ANP-BC [address] [facility] [address] [place] [address] [place] Scientific Software Developer NURSE PRACTITIONER 02/28/17 documented as of this encounter
--- OUTSIDE RECORDS SUMMARY | 2024-10-26 23:06 | XMS_ITS | Encounter Summary ---
Author Organization [facility] Address [address] [place] [address]. 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 No / Unsure 12/02/2021 9:21 AM TURNING LATHE TENDER documented as of this encounter Plan of Treatment Not on file documented as of this encounter Visit Diagnoses Not on filedocumented in this encounter Care Teams Sports Coordinator Relationship Specialty Start Date End Date Dennis Doran MD PCP - General INTERNAL MEDICINE 02/28/17 10/23/23 Joann Marquez, [facility]- [address] [facility] [address] [place] [address] [place] Administrative Representative NURSE PRACTITIONER 02/28/17 documented as of this encounter
--- OUTSIDE RECORDS SUMMARY | 2024-10-26 23:06 | XMS_ITS | Encounter Summary ---
Author Organization [facility] Address [address] [place] [address]. [place], [place] [address] [place] [address] Care Team Providers Care Pressure Dispatcher Name Role Phone Dennis Doran MD Primary Care Provider [phone] Joann Marquez [facility]-BC Unavailable [phone] Encounter Details Date Type Department Care Team (Late st Contact Info) Description 12/24/2019 Orders Only [facility] [address] [place] [address] Nate Sutton MD [address] [facility] [address] [place] [address] Social History Tobacco Use Types Packs/Day [...] 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 Not on file Not on file Not on file Not on file Not on file Not on file documented as of this encounter Plan of Treatment Not on file documented as of this encounter Procedures Procedure Name Priority Date/Time Associated Diagnosis Comments ELECTROCARDIOGRAM (NON MIDMARK ACQUIRED) Routine 12/24/2019 9:47 AM DEVELOPMENTAL PSYCHOLOGIST Coronary artery disease involving [place] coronary artery of [place] heart without angina pectoris documented in this encounter Results * ELECTROCARDIOGRAM (12/24/2019 9:47 AM DEVELOPMENTAL PSYCHOLOGIST) 12/24/2019 9:47 AM DEVELOPMENTAL PSYCHOLOGIST Narrative [facility] - 12/26/2019 3:04 PM DEVELOPMENTAL PSYCHOLOGIST ? [facility] ?[address] [place], [place] ??[address] ? Test Date: ?2019-12-24 Pat Name: ? TANK KOWALSKI ?Department: ? Room: ? Gender: ? Male ? French Lecturer: ?? : ?1975 ? Requested By: NATE SUTTON Order Number: [id number] ?Reading MD: ?? Nate Sutton ? Measurements Intervals ?[place] ? Rate: ? 73 ? P: ?19 [place]: ? 123 ?QRS: ?-10 QRSD: ? 86 ? T: ?43 QT: ? 376 ? QTc: ?415 ? Interpretive Statements SINUS RHYTHM SEPTAL MYOCARDIAL INFARCTION, OF INDETERMINATE AGE LOPMENTAL PSYCHOLOGIST Procedure Note Nate Sutton MD - 12/26/2019 [facility], [facility] [address] [place] [address] Test Date: 2019-12-24 Pat Name: TANK KOWALSKI Department: Room: Gender: Male French Lecturer: : 1975 Requested By: NATE SUTTON Order Number: [id number] Dougie MD: Nate Sutton Measurements Intervals [place] Rate: 73 P: 19 [place]: 123 QRS: -10 QRSD: 86 T: 43 QT: 376 QTc: 415 Interpretive Statements SINUS RHYTHM SEPTAL MYOCARDIAL INFARCTION, OF INDETERMINATE AGE LOPMENTAL PSYCHOLOGIST us Nate Wade MD PROCEDURES-ORDERABLE NO CHARG E Final Result [facility] [address] [place] [address] documented in this encounter Visit Diagnoses Diagnosis Coronary artery disease involving [place] coronary artery of [place] heart without angina pectoris- Primary documented in this encounter Care Teams Pressure Dispatcher Relationship Specialty Start Date End Date Dennis Doran MD PCP - General INTERNAL MEDICINE 02/28/17 10/23/23 Joann Marquez, [facility]- [address] [facility] [address] [place] [address] [place] Yeast Pumper NURSE PRACTITIONER 02/28/17 documented as of this encounter
--- OUTSIDE RECORDS SUMMARY | 2024-10-26 23:06 | XMS_ITS | Encounter Summary ---
Author Organization [facility] Address [facility]6 [facility] [address] [place] [address] Care Team Providers Care Booster Station Operator Name Role Phone Dennis Doran MD Primary Care Provider [phone] Joann Marquez-BC Unavailable [phone] Reason for Visit * Reason Onset Date Comments Medication Request 06/20/2023 Encounter Details Date Type Department Care Team ([facility] st Contact Info) Description 06/20/2023 Telephone [facility] ld [address] [place] [address] Joann Marquez, AURELIANO-BC [address] [facility] [address] [place] [address] Medication Request Social History Tobacco [...] 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 Refill of clopidogrel 75 mg Q day. d [phone] 06-22-23 ok to refill plavix 75 mg 1 daily # 30 with no refills . Pt has appt next week Joann. Will give further refills then. .06-22-23 shantal peguero called [facility] script was filled. documented in this encounter Plan of Treatment Not on file documented as of this encounter Visit Diagnoses Not on filedocumented in this encounter Care Teams Booster Station Operator Relationship Specialty Start Date End Date Dennis Doran MD PCP - General INTERNAL MEDICINE 02/28/17 10/23/23 Joann Marquez, ANP- [address] [facility] [address] [place] [address] Boulevard Osd Clerk NURSE PRACTITIONER 02/28/17 documented as of this encounter
--- OUTSIDE RECORDS SUMMARY | 2024-10-26 23:06 | XMS_ITS | Encounter Summary ---
Author Organization [facility] Address [address] [place] [address]. 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
--- OUTSIDE RECORDS SUMMARY | 2024-10-26 23:06 | XMS_ITS | Encounter Summary ---
Author Organization [facility] Address [address] [place] [address]. [place], [place] [address] [place] [address] Care Team Providers Care Brine Mixer Operator Name Role Phone Dennis Crump MD Primary Care Provider [phone] Joann Marquez [facility]- Unavailable [phone] Reason for Visit * Reason Comments Follow Up CAD Encounter Details Date Type Department Care Team (Late st Contact Info) Description 12/20/2021 10:30 AM AIR SUPPORT CONTROL OFFICER Office Visit [facility] [address] [place] [address] Dieter Arechiga MD [address] [place] [address] Follow Up (CAD) Social History Tobacco [...] 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 No / Unsure 12/19/2021 10:29 AM AIR SUPPORT CONTROL OFFICER documented as of this encounter Last Filed Vital Signs Vital Sign Reading Time Taken Comments Blood Pressure 110/60 12/20/2021 10:28 AM AIR SUPPORT CONTROL OFFICER Pulse 70 12/20/2021 10:28 AM AIR SUPPORT CONTROL OFFICER Temperature - - Respiratory Rate 16 12/20/2021 10:28 AM AIR SUPPORT CONTROL OFFICER Oxygen Saturation - - Inhaled Oxygen Concentration - - Weight 89.6 kg (197 lb 9.6 oz) 12/20/2021 10:28 AM AIR SUPPORT CONTROL OFFICER Height 180.3 cm (5' 11 ) 12/20/2021 10:28 AM AIR SUPPORT CONTROL OFFICER Body Mass Index 27.56 12/20/2021 10:28 AM AIR SUPPORT CONTROL OFFICER documented in this encounter Progress Notes * [...] Mr. Kowalski including the risks of mortality, [place], CVA, bleeding, infection, vascular comp lications and [...] Disp: , Rfl: ??? vitamin D2, ergocalciferol, 63050 UNITS capsule, Take 50,000 Units by mouth [...] Comments: Diagnoses/Impression: 1. Coronary artery disease involving [place] coronary artery of [place] heart without angina pectoris 2. Primary hypertension 3. Hyperlipidemia, unspecified hyperlipidemia type 4. Tobacco use Referring Provider: Dennis Crump MD PCP: DENNIS CRUMP MD SUPPORT CONTROL OFFICER documented in this encounter Plan of Treatment Not on file documented as of this encounter Visit Diagnoses Diagnosis Coronary artery disease involving [place] coronary artery of [place] heart without angina pectoris- Primary Primary hypertension Unspecified essential hypertension Hyperlipidemia, unspecified hyperlipidemia type Tobacco use Tobacco use disorder documented in this encounter Care Teams Brine Mixer Operator Relationship Specialty Start Date End Date Dennis Crump MD PCP - General INTERNAL MEDICINE 02/28/17 10/23/23 Joann Marquez ANP- [address] [facility] [address] [place] [address] [place] Prototype Sewer NURSE PRACTITIONER 02/28/17 documented as of this encounter
--- OUTSIDE RECORDS SUMMARY | 2024-10-26 23:06 | XMS_ITS | Encounter Summary ---
Author Organization [facility] Address [address] [place] [address]. [place] [address] [place] [address] Care Team Providers Care Peeled Potato Inspector Name Role Phone Dennis Crump MD Primary Care Provider [phone] Joann Marquez Unavailable [phone] Reason for Visit * Reason Comments Follow Up Encounter Details Date Type Department Care Team ([facility] st Contact Info) Description 11/08/2021 8:30 AM TRUCK SALES REPRESENTATIVE Office Visit 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 Yes 11/07/2021 3:01 PM TRUCK SALES REPRESENTATIVE documented as of this encounter Last Filed Vital Signs Vital Sign Reading Time Taken Comments Blood Pressure 126/78 11/08/2021 8:30 AM TRUCK SALES REPRESENTATIVE Pulse 80 11/08/2021 8:27 AM TRUCK SALES REPRESENTATIVE Temperature - - Respiratory Rate 22 11/08/2021 8:27 AM TRUCK SALES REPRESENTATIVE Oxygen Saturation - - Inhaled Oxygen Concentration - - Weight 88.9 kg (196 lb) 11/08/2021 8:27 AM TRUCK SALES REPRESENTATIVE Height 180.3 cm (5' 11 ) 11/08/2021 8:27 AM TRUCK SALES REPRESENTATIVE Body Mass Index 27.34 11/08/2021 8:27 AM TRUCK SALES REPRESENTATIVE documented in this encounter Patient Instructions * Patient Instructions* MARIO Mendenhall - 11/08/2021 8:30 AM TRUCK SALES REPRESENTATIVE Our scheduling office will contact you to arrange an exercise nuclear stress test in the near future K SALES REPRESENTATIVE documented in this encounter Progress Notes * MARIO Mendenhall - 11/08/2021 8:30 AM CST From the office of Dieter Arechiga MD & Joann Marquez APRN Dear Dr. DENNIS CRUMP MD: Your patient, Tank Kowalski was [facility]. Orders Placed This Encounter ??? LIPOPROTEIN, [...] Comments: Diagnoses/Impression: 1. Coronary artery disease of [place] artery of [place] heart with stable angina pectoris (CMS/HCC) NM [...] LDL CHOL, DIRECT PCP: DENNIS CRUMP MD K SALES REPRESENTATIVE * MARIO Mendenhall - 11/08/2021 8:30 AM [...] are pending results of his stress test. K SALES REPRESENTATIVE documented in this encounter Plan of Treatment Not on file documented as of this encounter Visit Diagnoses Diagnosis Coronary artery disease of [place] artery of [place] heart with stable angina pectoris ([facility] Primary Primary hypertension Unspecified essential hypertension Hyperlipidemia, unspecified hyperlipidemia type Tobacco use Tobacco use disorder Mixed hyperlipidemia Encounter for long-term (current) drug use Encounter for long-term (current) use of other medications documented in this encounter Care Teams Peeled Potato Inspector Relationship Specialty Start Date End Date Dennis Crump MD PCP - General INTERNAL MEDICINE 02/28/17 10/23/23 Joann Marquez ANP-BC [address] [facility] [address] [place] [address] [place] [employer] Specialist NURSE PRACTITIONER 02/28/17 documented as of this encounter
--- OUTSIDE RECORDS SUMMARY | 2024-10-26 23:06 | XMS_ITS | Encounter Summary ---
Author Organization [facility] Address [address] [place] [address]. 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
--- OUTSIDE RECORDS SUMMARY | 2024-10-26 23:06 | XMS_ITS | Encounter Summary ---
Author Organization [facility] Address [facility] [place] [address] [place] [address] Care Team Providers Care Liquor Tester Name Role Phone Dennis Doran MD Primary Care Provider [phone] Joann Marquez-ERICA Unavailable Reason for Visit * Reason Onset Date Comments Appointment Reminder 04/06/2023 Encounter Details Date Type Department Care Team ([facility] st Contact Info) Description 04/06/2023 Telephone [place] 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 No answer, left a voicemail. documented in this encounter Plan of Treatment Not on file documented as of this encounter Visit Diagnoses Not on filedocumented in this encounter Care Teams Liquor Tester Relationship Specialty Start Date End Date Dennis Doran MD PCP - General INTERNAL MEDICINE 02/28/17 10/23/23 Joann Marquez, ANP- [address] [address] [place] Shipfitter NURSE PRACTITIONER 02/28/17 documented as of this encounter
--- OUTSIDE RECORDS SUMMARY | 2024-10-26 23:06 | XMS_ITS | Encounter Summary ---
Author Organization [facility] Address [address] [place] [address]. 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 Yes 11/07/2021 3:01 PM INSTITUTIONAL COOK documented as of this encounter Plan of Treatment Not on file documented as of this encounter Visit Diagnoses Not on filedocumented in this encounter Care Teams Chief Credit Officer Relationship Specialty Start Date End Date Dennis Doran MD PCP - General INTERNAL MEDICINE 02/28/17 10/23/23 Joann Marquez ANP-BC [address] [facility] [address] [place] [phone] [place] Senior It Architect NURSE PRACTITIONER 02/28/17 documented as of this encounter
--- OUTSIDE RECORDS SUMMARY | 2024-10-26 23:07 | XMS_ITS | Encounter Summary ---
Author Organization [facility] Address [address] [place] [address]. [place], [place] [address] [place] [address] Care Team Providers Care Puddler Pile Driving Name Role Phone Dennis Doran MD Primary Care Provider [phone] Joann Marquez [facility] Unavailable [phone] Encounter Details Date Type Department Care Team (Late st Contact Info) Description 09/24/2015 Abstract [facility] Vessel Specialist [address] [place] [address] Nate Sutton MD [address] [facility] [address] [place] [phone] Social History Tobacco Use Types Packs/Day [...] Comments ECG 12-LEAD Routine 09/24/2015 10:48 AM PRODUCTION OPERATIONS MANAGER documented in this encounter Results * ECG 12 lead (09/24/2015 10:48 AM PRODUCTION OPERATIONS MANAGER) 09/24/2015 10:4 8 AM PRODUCTION OPERATIONS MANAGER Narrative [facility] - 09/24/2015 11:46 AM PRODUCTION OPERATIONS MANAGER ? [facility] ? [address] [place], [place] ??[address] ? Test Date: ?2015-09-24 Pat Name: ? TANK KOWALSKI ?Department: ?? 1 ? Room: ? Gender: ? M ?Sales Administration Specialist: ?? gs : ?1975 ? Requested By: NATE SUTTON Order Number: [id number] ? Reading MD: ?? Yamel Al-Dadah ? Measurements Intervals ?[place] ? Rate: ? 66 ? P: ?55 MT: ? 145 ?QRS: ?-3 QRSD: ? 97 ? T: ?43 QT: ? 390 ? QTc: ?409 ? Interpretive Statements SINUS RHYTHM UCTION OPERATIONS MANAGER Procedure Note , Dionicio Mabry MD - 06/17/2019 [facility] [address] [place] [address] Test Date: 2015-09-24 Pat Name: TANK KOWALSKI Department: 1 Room: Gender: Sales Administration Specialist: : 1975 Requested By: NATE SUTTON Order Number: [id number] Reading MD: Yamel Pop Measurements Intervals [place] Rate: 66 P: 55 MT: 145 QRS: -3 QRSD: 97 T: 43 QT: 390 QTc: 409 Interpretive Statements SINUS RHYTHM UCTION OPERATIONS MANAGER us Generic Clotilde Pickard MD ECG ORDERABLES Final R esult [facility] documented in this encounter Visit Diagnoses Diagnosis Atherosclerotic heart disease of [place] coronary artery with other forms of angina pectoris (CMS/HCC) documented in this encounter Care Teams Puddler Pile Driving Relationship Specialty Start Date End Date Dennis Doran MD PCP - General INTERNAL MEDICINE 02/28/17 10/23/23 Joann Marquez ANP- [address] [facility] [address] [place] [phone] [place] Truck Packer NURSE PRACTITIONER 02/28/17 documented as of this encounter
--- OUTSIDE RECORDS SUMMARY | 2024-10-26 23:07 | XMS_ITS | Encounter Summary ---
Author Organization [facility] Address [facility] [place] [address] [place] [address] Care Team Providers Care Mixing Pan Tender Name Role Phone Dennis Doran MD Primary Care Provider [phone] Joann Marquez Unavailable [phone] Encounter Details Date Type Department Care Team (Late st Contact Info) Description 01/27/[address] [facility] Services [address] [place] [address] Dennis Doran MD [address] [place] [address] Social History Tobacco Use Types Packs/Day Years [...] breath documented in this encounter Care Teams Mixing Pan Tender Relationship Specialty Start Date End Date Dennis Doran MD PCP - General INTERNAL MEDICINE 02/28/17 10/23/23 Joann Marquez ANP-BC [address] [facility] [address] [place] [phone] [place] Principal Technologist NURSE PRACTITIONER 02/28/17 documented as of this encounter
--- OUTSIDE RECORDS SUMMARY | 2024-10-26 23:07 | XMS_ITS | Encounter Summary ---
Author Organization [facility] Address [facility] [place]. [place], [place] [address] [place] [address] Care Team Providers Care Petroleum Geology Faculty Member Name Role Phone Dennis Doran MD Primary Care Provider [phone] Joann Marquez-ERICA Unavailable [phone] Encounter Details Date Type Department Care Team (Late st Contact Info) Description 06/09/2005 Abstract [facility] CONVERSION [address] [place] [address] Bertrand Mckeon MD [address] [place] [id number] Social History Tobacco Use Types Packs/Day Years [...] on filedocumented in this encounter Care Teams Petroleum Geology Faculty Member Relationship Specialty Start Date End Date Dennis Doran MD PCP - General INTERNAL MEDICINE 02/28/17 10/23/23 Joann Marquez ANP-BC [address] [facility] [address] [place] [address] [place] Supervisor Liquefaction NURSE PRACTITIONER 02/28/17 documented as of this encounter
--- OUTSIDE RECORDS SUMMARY | 2024-10-26 23:07 | XMS_ITS | Encounter Summary ---
Author Organization [facility] Address [facility]. [place], [place] [address] [place] [address] Care Team Providers Care Chocolatier Name Role Phone Dennis Doran MD Primary Care Provider [phone] Joann Marquez-BC Unavailable [phone] Encounter Details Date Type Department Care Team (Late st Contact Info) Description 09/29/2008 Abstract [facility] CONVERSION [address] [place] [address] Elsi Kerns, DO [address] [place] [address] Social History Tobacco Use Types Packs/Day [...] on filedocumented in this encounter Care Teams Chocolatier Relationship Specialty Start Date End Date Dennis Doran MD PCP - General INTERNAL MEDICINE 02/28/17 10/23/23 Joann Marquez ANP-BC [address] [facility] [address] [place] [phone] [place] Superintendent Gas Distribution NURSE PRACTITIONER 02/28/17 documented as of this encounter
--- OUTSIDE RECORDS SUMMARY | 2024-10-26 23:07 | XMS_ITS | Encounter Summary ---
Author Organization [facility] Address [address] [place] [address]. [place], [place] [address] [place] [address] Care Team Providers Care School Community Relations Coordinator Name Role Phone Unavailable Primary Care Provider Unavailabl e Encounter Details Date Type Department Care Team (Late st Contact Info) Description 09/15/2014 Abstract [facility] [address] [place] [address] , Dionicio Mabry MD Social History Tobacco [...]
--- OUTSIDE RECORDS SUMMARY | 2024-10-26 23:07 | XMS_ITS | Encounter Summary ---
Author Organization [facility] Address [address] [place] [address]. [place], [place] [address] [place] [address] Care Team Providers Care Medical Physics Researcher Name Role Phone Dennis Doran MD Primary Care Provider [phone] Joann Marquez-BC Unavailable [phone] Encounter Details Date Type Department Care Team (Late st Contact Info) Description 11/26/2007 Abstract [facility] CONVERSION [address] [place] [address] Elsi Kerns, DO [address] [place] [address] Social History Tobacco Use Types Packs/Day [...] on filedocumented in this encounter Care Teams Medical Physics Researcher Relationship Specialty Start Date End Date Dennis Doran MD PCP - General INTERNAL MEDICINE 02/28/17 10/23/23 Joann Marquez ANP-BC [address] [facility] [address] [place] [address] [place] Swimming Pool Servicer NURSE PRACTITIONER 02/28/17 documented as of this encounter
--- OUTSIDE RECORDS SUMMARY | 2024-10-26 23:07 | XMS_ITS | Encounter Summary ---
Author Organization [facility] Address [address] [place] [address]. [place], [place] [id number] [place] [address] Care Team Providers Care Clothing Room Supervisor Name Role Phone Dennis Crump MD Primary Care Provider [phone] Joann Marquez [facility]- Unavailable [phone] Reason for Referral * Imaging (Urgent) - Closed Specialty Diagnoses / Procedures Referred By Cheyanne puentes Referred To Contact Procedures [facility] POSS Mike Lovell MD 3 [facility] [address] [place] [phone] Phone: tel: fax: Referral ID Status Reason Start Date Expiration Date Visits Re quested Visits Authorized [id number] Closed 05/22/2018 06/22/2019 1 1 Reason for Visit * Reason Comments Chest Pain * Auth/Cert Specialty Diagnoses / Procedures Referred By Cheyanne puentes Referred To Contact Diagnoses Chest pain, unspecified type Chest pain Procedures OBSV Referral ID Status Reason Start Date Expiration Date Visits Re quested Visits Authorized [id number] 1 1 Encounter Details Date Type Department Care Team (Late st Contact Info) Description 05/21/2018 1:11 PM CDT - 05/22/2018 3:48 PM CDT Emergency [facility] [place] [address] Steve Rockwell MD [address] [place], [place] [address] [place] [address] [phone] (Work) Chest Pain Discharge Disposition: Home or [...] 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 nitroglycerin 0.4 MG SL tablet Disposition: [...] 5 minutes. Where can I learn more? [place] [employer] http://www.heart.org/HEARTORG/Conditions/HeartAttack/AboutHeartAttacks/About-Hea rt-Attacks_UC_002038_Article.jsp [place] [employer] http://www.heart.org/HEARTORG/Conditions/HeartAttack/SymptomsDiagnosisofHeartAtt ack/Uurygq-Sjsbh-Bdxa_MSO_400313_Wkgtshs.jsp FamilyDoctor.org http://familydoctor.org/familydoctor/en/diseases-conditions/angina.printerview.a ll.html National Heart Lung and Blood [place] http://www.nhlbi.nih.gov/health/health-topics/topics/angina/ Last Reviewed Date 2015-12-02 Consumer Information [...] right for you. Copyright Copyright ?? 2018 haystagg. and its affiliates and/or licensors. All rights reserved. * Attachments The following attachments cannot be sent through Care Everywhere. * QUITTING SMOKING (SLOVENIAN) documented in this encounter Medications at Time [...] this encounter Progress Notes * Marycruz Champion, AUTOMOTIVE MACHINIST - 05/22/2018 1:33 PM CDT RNCM spoke with the patient at bedside. The patient stated his name and date of . The patient verified his address, PCP Dennis Crump, and [employer] as his insurance provider. The patient states he lives at home with his parents. His parents will be his ride home at discharge. He states his only DME is his insulin pump, glucometer, and blood pressure cuff. He uses [facility] in [place]. He denies current home health care or [...] were discussed with the patient and/or family/personal patient care representative. Questions were answered and the patient/family/personal patient care representative verbalized understanding and desires to proceed. [...] with attending physician. 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 He is a smoker with type 1 diabetes mellitus diagnosed with was a teenager. He has a historyof CAD, status post prior stenting [address] Arechiga in [place]. Apparently the LAD. 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 ??? [employer] Social History [...] No results for input(s): PH, PCO2, PO2, F9PIWFRFKMUE, BICARBWB, BASEDEFICIT, BASEEXCESS in the [id number] hours. Imagining & Other Studies CXR NACPP Results for orders placed or performed during the hospital encounter of 05/21/18 ECG 12-Lead Narrative [facility] Test Date: 2018-05-21 Pat Name: RUBIA KOWALSKI Department: 41 Room: Gender: Male Picking Supervisor: ALEK : 1975 Requested By: STEVE ROCKWELL Order Number: [id number] Reading MD: Measurements Intervals [place] Rate: 74 P: 20 CA: 132 QRS: -14 QRSD: 93 T: 45 QT: 376 QTc: 419 Interpretive Statements SINUS RHYTHM SEPTAL MYOCARDIAL INFARCTION, OF INDETERMINATE AGE Compared to ECG 09/24/2015 10:48:30 Myocardial infarct finding now present Assessment & Plan Chest pain Monitor on tele Serial trops Cardiology consult Cont home meds - aspirin, statin, BB TRPI Hold lisinopril Daily labs CAD S/p stenting [...] with attending physician. 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 He is a smoker with type 1 diabetes mellitus diagnosed with was a teenager. He has a historyof CAD, status post prior stenting [address] Arechiga in [place]. Apparently the LAD. There is also moderate [...] symptoms. His cardiology care is provided in [place]. History of Present Illness Medical History ALLERGIES: [...] of 05/21/18 ECG 12-Lead Narrative [facility] [address] Test Date: 2018-05-21 Pat Name: RUBIA KOWALSKI Department: 41 Room: Gender: Male Picking Supervisor: ALEK : 1975 Requested By: STEVE ROCKWELL Order Number: [id number] Reading MD: Measurements Intervals [place] Rate: 74 P: 20 CA: 132 QRS: -14 QRSD: 93 T: 45 [...] XR CHEST PORTABLE Final Result by User, [id number] (05/21 0708) Date: 05/21/2018 12:54 PM Exam: XR CHEST [...] pain; moderate probably cardiac pain; low probability ACS/NJ, PE Plan: 1. EKG 2. Aspirin 3. Chest x-ray 4. Labs 5. Above shows no discrete cause for the patient's symptoms. His HEART score is 4. Plan admission to the hospital for further evaluation and management 6. On-call hospitalist agrees to admit the patient 7. Patient reassessed frequently. Admission orders placed [facility] [place] Heart Score History: Chest discomfort, Relieved by [...] Name Priority Date/Time Associated Diagnosis Comments [facility]A [facility] POSS Today 05/22/2018 2:16 PM CDT [...] documented in this encounter Results * [facility] POSS (05/22/2018 2:16 PM CDT) Anatomical Region Laterality Modality Cardiac Construction Administrative Assistant Narrative 05/29/2018 8:29 AM CDT Diagnostic Cardiac Catheterization Report Cardiac Catheterization / Electrophysiology Laboratory Patient Information Patient: RUBIA KOWALSKI Medical Records Number: [id number] Address: [address] [place] [address]: [place] ?? State: [place] Zip: [address] Date of : 1975 ?? Gender: Male Event Identifiers Date of Procedure: 05/22/2018 Catheterization Number: [id number] Attending MD: JUANIS FRAZIER Referring MD: Jen CRUMP MD Referring MD: MD Geni ([place]) Procedure Description Cor/LV Indications Primary Hypertension ?? [...] ??After adequate local anesthesia was given, a 6-Dominican sheath was placed in the right radial artery under ultrasound guidance. ??The sheath was flushed and a 5-Dominican Jonathan coronary diagnostic catheter was advanced over the guidewire, used to cannulate the left coronary artery and selective angiography was performed in the LINDSAY and SIERRA LEONEAN projections. ??The catheter was then used to cannulate the right coronary artery and selective angiography was performed in the LINDSAY and SIERRA LEONEAN projections. ??The catheter was then exchanged for a 5-Dominican pigtail catheter which was advanced into the [...] ?? DATE TRANSCRIBED: 05/24/18 Mike Lovell MD FACILITY PRACTICE SPECIALIST Final Result * (ABNORMAL) POCT glucose (05/22/2018 12:49 PM CDT) [facility] GLUCOSE POC 148(H) 70 - 99 mg/dL 05/22/2018 1:04 PM CDT [facility] LAB ORDERS INTERFACE 05/22/2018 12:4 9 PM CDT Ember Han MD POCT ORDERABLES - DEVICE Fin al Result [facility] LAB ORDERS INTERFACE US * (ABNORMAL) POCT glucose (05/22/2018 6:05 AM CDT) [facility] Signature GLUCOSE POC 245(H) 70 - 99 mg/dL 05/22/2018 6:12 AM CDT [facility] LAB ORDERS INTERFACE 05/22/2018 6:05 AM CDT Ember Han MD POCT ORDERABLES - DEVICE Fin al Result [facility] LAB ORDERS INTERFACE US * (ABNORMAL) HEMOGLOBIN, GLYCOSYLATED (05/22/2018 5:13 AM CDT) HGB A1C 8.3(H) 4.2 - 6.3 % 05/22/2018 6:10 AM CDT [facility] Comment: ADA GUIDELINES 2010 5.7 TO 6.4% INCREASED RISK OF DIABETES > OR = 6.5% CONSISTENT WITH DIABETES ESTIMATED AVG GLUCOSE 192 mg/dL 05/22/2018 6:10 AM CDT [facility] 05/22/2018 5:13 AM CDT Ember Han MD LABORATORY Final Result Performing Organization Address [facility]/ZIP Co de Phone Number [facility] [address] [place] [address], [place] [phone] * (ABNORMAL) BASIC METABOLIC PANEL (05/22/2018 5:13 AM CDT) GLUCOSE 262(H) 70 - 99 MG/DL 05/22/2018 6:11 AM CDT [facility] BUN 20(H) 7 - 18 MG/DL 05/22/2018 6:11 AM CDT [facility] CREATININE S/P/B 1.47(H) 0.7 - 1.3 MG/DL 05/22/2018 6:11 AM CDT [facility] SODIUM S/P/B 142 136 - 145 MMOL/L 05/22/2018 6:11 AM CDT [facility] POTASSIUM S/P/B 3.8 3.5 - 5.1 MMOL/L 05/22/2018 6:11 AM CDT [facility] CHLORIDE S/P/B 109(H) 100 - 108 MMOL/L 05/22/2018 6:11 AM CDT [facility] CO2 24.2 21 - 32 MMOL/L 05/22/2018 6:11 AM CDT [facility] CALCIUM S/P/B 7.8(L) 8.5 - 10.1 MG/DL 05/22/2018 6:11 AM CDT [facility] ANION GAP 12.6 8 - 20 MMOL/L 05/22/2018 6:11 AM CDT [facility] BUN CREATININE RATIO 13.6 6 - 26 05/22/2018 6:11 AM CDT [facility] EGFR NON-AFR. AMER. 57(L) >90 ML/MIN/1.7 3 M2 05/22/2018 6:11 AM CDT [facility] EGFR AFR. AMER. 66(L) >90 ML/MIN/1.7 3 M2 05/22/2018 6:11 AM CDT [facility] Comment: NOTE: eGFR is not calculated for patients <18 years of age. This is an estimated GFR (CKD EPI) and should not be used for calculating drug doses. 05/22/2018 5:13 AM CDT Ember Han MD LABORATORY Final Result [facility] [address] [place] [address], [place] [phone] * (ABNORMAL) CBC W/DIFF AUTOMATED (05/22/2018 5:13 AM CDT) WBC 8.8 4.5 - 11.0 x10'3/uL 05/22/2018 5:48 AM CDT [facility] RBC 4.14(L) 4.70 - 6.10 x10'6/uL 05/22/2018 5:48 AM CDT [facility] HGB 12.4(L) 14.0 - 18.0 G/DL 05/22/2018 5:48 AM CDT [facility] HCT 37.2(L) 43.0 - 54.0 % 05/22/2018 5:48 AM CDT [facility] MCV 89.9 80.0 - 94.0 FL 05/22/2018 5:48 AM CDT [facility] MCH 30.0 27.0 - 31.0 PG 05/22/2018 5:48 AM CDT [facility] MCHC 33.3 32.0 - 36.0 G/DL 05/22/2018 5:48 AM CDT [facility] RDW 13.8 11.5 - 14.5 % 05/22/2018 5:48 AM CDT [facility] PLT 179 130 - 400 x10'3/uL 05/22/2018 5:48 AM CDT [facility] MPV 11.5 9.3 - 12.2 FL 05/22/2018 5:48 AM CDT [facility] DIFFERENTIAL TYPE AUTOMATED DIFFERENTIAL 05/22/2018 5:48 AM CDT [facility] NEUTROPHILS % 73.0 % 05/22/2018 5:48 AM CDT [facility] LYMPHOCYTES % 16.6 % 05/22/2018 5:48 AM CDT [facility] MONOCYTES % 5.4 % 05/22/2018 5:48 AM CDT [facility] EOSINOPHILS 3.7 % 05/22/2018 5:48 AM CDT [facility] BASOPHILS 0.8 % 05/22/2018 5:48 AM CDT [facility] IMMATURE GRANS % 0.5(H) 0 % 05/22/20 18 5:48 AM CDT [facility] ABS. NEUTROPHILS TOTAL 6.40 1.80 - 7.70 x10'3/uL 05/22/2018 5:48 AM CDT [facility] ABS. LYMPHOCYTES 1.45 1.00 - 4.80 x10'3/uL 05/22/2018 5:48 AM CDT [facility] ABS. MONOCYTES 0.47 0.30 - 0.82 x10'3/uL 05/22/2018 5:48 AM CDT [facility] ABS. EOSINOPHILS 0.32 0.04 - 0.54 x10'3/uL 05/22/2018 5:48 AM CDT [facility] ABS. BASOPHILS 0.07 0.01 - 0.08 x10'3/uL 05/22/2018 5:48 AM CDT [facility] ABS. IMMATURE GRANULOCYTES 0.04(H) 0.00 - 0.03 x10'3/uL 05/22/2018 5:48 AM CDT [facility] 05/22/2018 5:13 AM CDT us Ember Han MD LABORATORY Final Result [facility] [address] [place] [address], [place] [phone] * TROPONIN, QUANT (05/22/2018 12:25 AM CDT) TROPONIN I <0.015 <0.045 ng/mL. 05/22/2018 1:04 AM CDT [facility] Comment: HIGH DOSES OF BIOTIN MAY INTERFERE WITH THIS TEST RESULT. CORRELATION TO CLINICAL HISTORY AND PRESENTATION RECOMMENDED. 05/22/2018 12:2 5 AM CDT us Ember Han MD LABORATORY Final Result Performing Organization Address [facility] Co de Phone Number [facility] [address] [place] [address], * (ABNORMAL) POCT glucose (05/21/2018 8:24 PM CDT) GLUCOSE POC 165(H) 70 - 99 mg/dL 05/21/2018 8:26 PM CDT [facility] LAB ORDERS INTERFACE 05/21/2018 8:24 PM CDT Ember Han MD POCT ORDERABLES - DEVICE Fin al Result Performing Organization Address [facility] Co de Phone Number [facility] LAB ORDERS INTERFACE US * TROPONIN, QUANT (05/21/2018 6:43 PM CDT) TROPONIN I <0.015 <0.045 ng/mL. 05/21/2018 7:41 PM CDT [facility] Comment: HIGH DOSES OF BIOTIN MAY INTERFERE WITH THIS TEST RESULT. CORRELATION TO CLINICAL HISTORY AND PRESENTATION RECOMMENDED. 05/21/2018 6:43 PM CDT Ember Han MD LABORATORY Final Result Performing Organization Address [facility] Co de Phone Number [facility] [address] [place] [address], [place] [phone] * (ABNORMAL) POCT glucose (05/21/2018 6:17 PM CDT) GLUCOSE POC 113(H) 70 - 99 mg/dL 05/21/2018 6:19 PM CDT [facility] LAB ORDERS INTERFACE 05/21/2018 6:17 PM CDT Ember Han MD POCT ORDERABLES - DEVICE Fin al Result Performing Organization Address [facility]/ZIP Co de Phone Number [facility] LAB ORDERS INTERFACE US * TROPONIN, QUANT (05/21/2018 2:45 PM CDT) TROPONIN I <0.015 <0.045 ng/mL. 05/21/2018 3:20 PM CDT [facility] Comment: HIGH DOSES OF BIOTIN MAY INTERFERE WITH THIS TEST RESULT. CORRELATION TO CLINICAL HISTORY AND PRESENTATION RECOMMENDED. 05/21/2018 2:45 PM CDT us Steve Rockwell MD LABORATORY Final Result [facility] [address] [place] [address], [place] [phone] * XR CHEST PORTABLE (05/21/2018 1:02 PM [...] <0.015 <0.045 ng/mL. 05/21/2018 1:18 PM CDT [facility] Comment: HIGH DOSES OF BIOTIN MAY INTERFERE WITH THIS TEST RESULT. CORRELATION TO CLINICAL HISTORY AND PRESENTATION RECOMMENDED. 05/21/2018 12:3 4 PM CDT Steve Rockwell MD LABORATORY Final Result [facility] [address] [place] [address], [place] [phone] * (ABNORMAL) COMPREHENSIVE METABOLIC PANEL (05/21/2018 12:34 PM CDT) GLUCOSE 211(H) 70 - 99 MG/DL 05/21/2018 1:18 PM CDT [facility] BUN 27(H) 7 - 18 MG/DL 05/21/2018 1:18 PM CDT [facility] CREATININE S/P/B 1.59(H) 0.7 - 1.3 MG/DL 05/21/2018 1:18 PM CDT [facility] SODIUM S/P/B 139 136 - 145 MMOL/L 05/21/2018 1:18 PM CDT [facility] POTASSIUM S/P/B 3.8 3.5 - 5.1 MMOL/L 05/21/2018 1:18 PM CDT [facility] CHLORIDE S/P/B 105 100 - 108 MMOL/L 05/21/2018 1:18 PM CDT [facility] CO2 26.3 21 - 32 MMOL/L 05/21/2018 1:18 PM T [facility] CALCIUM S/P/B 8.1(L) 8.5 - 10.1 MG/DL 05/21/2018 1:18 PM T [facility] BILIRUBIN TOTAL S/P/B 0.6 0.2 - 1.2 MG/DL 05/21/2018 1:18 PM T [facility] TOTAL PROTEIN S/P/B 7.2 6.4 - 8.2 G/DL 05/21/2018 1:18 PM T [facility] ALBUMIN S/P/B 3.3(L) 3.4 - 5.0 G/DL 05/21/2018 1:18 PM T [facility] AST 18 15 - 37 U/L 05/21/2018 1:18 PM T [facility] ALT 22 16 - 60 U/L 05/21/2018 1:18 PM T [facility] ALKALINE PHOSPHATASE S/P/B 94 50 - 136 U/L 05/21/2018 1:18 PM T [facility] ANION GAP 11.5 8 - 20 MMOL/L 05/21/2018 1:18 PM [facility] BUN CREATININE RATIO 17.0 6 - 26 05/21/2018 1:18 PM T [facility] A/G RATIO 0.8(L) 1.0 - 2.0 RATIO 05/21/2018 1:18 PM T [facility] EGFR NON-AFR. AMER. 52(L) >90 ML/MIN/1.7 3 M2 05/21/2018 1:18 PM [facility] EGFR AFR. AMER. 60(L) >90 ML/MIN/1.7 3 M2 05/21/2018 1:18 PM T [facility] Comment: NOTE: eGFR is not calculated for patients <18 years of age. This is an estimated GFR (CKD EPI) and should not be used for calculating drug doses. 05/21/2018 12:3 4 PM CDT us Steve Rockwell MD LABORATORY Final Result [facility] [address] [place] [address], * (ABNORMAL) CBC W/DIFF AUTOMATED (05/21/2018 12:34 PM CDT) WBC 6.5 4.5 - 11.0 x10'3/uL 05/21/2018 12:59 PM CDT [facility] RBC 4.24(L) 4.70 - 6.10 x10'6/uL 05/21/2018 12:59 PM CDT [facility] HGB 12.5(L) 14.0 - 18.0 G/DL 05/21/2018 12:59 PM CDT [facility] HCT 37.9(L) 43.0 - 54.0 % 05/21/2018 12:59 PM CDT [facility] MCV 89.4 80.0 - 94.0 FL 05/21/2018 12:59 PM CDT [facility] MCH 29.5 27.0 - 31.0 PG 05/21/2018 12:59 PM CDT [facility] MCHC 33.0 32.0 - 36.0 G/DL 05/21/2018 12:59 PM CDT [facility] RDW 13.5 11.5 - 14.5 % 05/21/2018 12:59 PM CDT [facility] PLT 184 130 - 400 x10'3/uL 05/21/2018 12:59 PM CDT [facility] MPV 11.1 9.3 - 12.2 FL 05/21/2018 12:59 PM CDT [facility] DIFFERENTIAL TYPE AUTOMATED DIFFERENTIAL 05/21/2018 12:59 PM CDT [facility] NEUTROPHILS % 60.1 % 05/21/2018 12:59 PM CDT [facility] LYMPHOCYTES % 26.2 % 05/21/2018 12:59 PM CDT [facility] MONOCYTES % 7.2 % 05/21/2018 12:59 PM CDT [facility] EOSINOPHILS 5.1 % 05/21/2018 12:59 PM CDT [facility] BASOPHILS 0.9 % 05/21/2018 12:59 PM CDT [facility] IMMATURE GRANS % 0.5(H) 0 % 05/21/20 18 12:59 PM CDT [facility] ABS. NEUTROPHILS TOTAL 3.91 1.80 - 7.70 x10'3/uL 05/21/2018 12:59 PM CDT [facility] ABS. LYMPHOCYTES 1.70 1.00 - 4.80 x10'3/uL 05/21/2018 12:59 PM CDT [facility] ABS. MONOCYTES 0.47 0.30 - 0.82 x10'3/uL 05/21/2018 12:59 PM CDT [facility] ABS. EOSINOPHILS 0.33 0.04 - 0.54 x10'3/uL 05/21/2018 12:59 PM CDT [facility] ABS. BASOPHILS 0.06 0.01 - 0.08 x10'3/uL 05/21/2018 12:59 PM CDT [facility] ABS. IMMATURE GRANULOCYTES 0.03 0.00 - 0.03 x10'3/uL 05/21/2018 12:59 PM CDT [facility] 05/21/2018 12:3 4 PM CDT us Steve Rockwell MD LABORATORY Final Result [facility] [address] [place] [address], * ECG 12-Lead (05/21/2018 12:29 PM CDT) 05/21/2018 12:2 9 PM CDT Narrative [facility] RADIOLOGY - 05/22/2018 3:00 PM CDT ?[facility] ? [address] [facility] [place] ? Test Date: ?2018-05-21 Pat Name: ? RUBIA KOWALSKI ?Department: ?? 41 ? Room: ? A432 Gender: ? Male ? Picking Supervisor: ?? DDB : ?1975 ? Requested By: STEVE ROCKWELL Order Number: [id number] ? Dougie ROGERS: ?? Steve Green ? Measurements Intervals ?[place] ? Rate: ? 74 ? P: ?20 CA: ? 132 ?QRS: ?-14 QRSD: ? 93 ? T: ?45 QT: ? 376 ? QTc: ?419 ? Interpretive Statements SINUS RHYTHM SEPTAL MYOCARDIAL INFARCTION, OF INDETERMINATE AGE Compared to ECG 09/24/2015 10:48:30 Myocardial infarct finding now present No ischemic changes Steve Rockwell M.D. CRITICAL ALERT ISSUED ON 05-21-2018 12:32:23 Procedure Note Steve Green MD - 05/22/2018 [facility] [address] [facility] Test Date: 2018-05-21 Pat Name: RUBIA KOWALSKI Department: 41 Room: A432 Gender: Male Picking Supervisor: ALEK : 1975 Requested By: STEVE ROCKWELL Order Number: [id number] Reading MD: Steve Green Measurements Intervals [place] Rate: 74 P: 20 CA: 132 QRS: -14 QRSD: 93 T: 45 QT: 376 QTc: 419 Interpretive Statements SINUS RHYTHM SEPTAL MYOCARDIAL INFARCTION, OF INDETERMINATE AGE Compared to ECG 09/24/2015 10:48:30 Myocardial infarct finding now present No ischemic changes Steve Rockwell M.D. CRITICAL ALERT ISSUED ON 05-21-2018 12:32:23 us Steve Rockwell MD ECG ORDERABLES Final Result [facility] RAD[facility]OLOGY documented in this encounter Visit Diagnoses [...] Given 05/21/2018 10:55 PM CDT 5,000 Units kqzmymrcf-csqvpqwq-gijuvivs one ([place], [place] EXTRA STRENGTH) 8798-5734-411 mg/30mL suspension 10 mL, Oral, Every 4 [...] at 1333, Until Sun05/22/18 at 1752, Post-Op rnwxnxwye-fsigfdiz-fqnjwbcpzbj ([place], [place] EXTRA STRENGTH) 5405-1655-706 mg/30mL suspension 10 mL, Oral, Every 4 [...] (COMPLETED) documented in this encounter Care Teams Clothing Room Supervisor Relationship Specialty Start Date End Date Dennis Crump MD PCP - General INTERNAL MEDICINE 02/28/17 10/23/23 Joann Marquez, ANP- [address] [facility] [address] [place] [address] [place] Dredge Boat Engineer NURSE PRACTITIONER 02/28/17 documented as of this encounter
--- OUTSIDE RECORDS SUMMARY | 2024-10-26 23:07 | XMS_ITS | Encounter Summary ---
Author Organization [facility] Address [facility] [facility]. [place], [place] [address] [place] [address] Care Team Providers Care Radio Technician Name Role Phone Dennis Doran MD Primary Care Provider [phone] Joann Marquez-ERICA Unavailable [phone] Encounter Details Date Type Department Care Team (Late st Contact Info) Description 02/15/2004 Abstract [facility] CONVERSION [address] [place] [address] Bertrand Mckeon MD [address] [place] [address] [phone] Social History Tobacco Use Types Packs/Day Years [...] filedocumented in this encounter Care Teams Radio Technician Relationship Specialty Start Date End Date Dennis Doran MD PCP - General INTERNAL MEDICINE 02/28/17 10/23/23 Joann Marquez ANP-BC [address] [place] [address] [address] [place] [address] [place] Automatic Lathe Operator NURSE PRACTITIONER 02/28/17 documented as of this encounter
--- OUTSIDE RECORDS SUMMARY | 2024-10-26 23:07 | XMS_ITS | Encounter Summary ---
Author Organization [facility] Address [facility]6 [facility] [place], [place] [address] [place] [address] Care Team Providers Care Barge Captain Name Role Phone Dennis Doran MD Primary Care Provider [phone] Joann Marquez-ERICA Unavailable [phone] Encounter Details Date Type Department Care Team (Late st Contact Info) Description 06/12/2005 Abstract [facility] CONVERSION [address] [place] [address] Bertrand Mckeon MD [address] [place] [address] [phone] Social History Tobacco Use Types Packs/Day Years [...] on filedocumented in this encounter Care Teams Barge Captain Relationship Specialty Start Date End Date Dennis Doran MD PCP - General INTERNAL MEDICINE 02/28/17 10/23/23 Joann Marquez ANP-BC [address] [facility] [address] [place] [address] [place] Access Specialist NURSE PRACTITIONER 02/28/17 documented as of this encounter
--- OUTSIDE RECORDS SUMMARY | 2024-10-26 23:07 | XMS_ITS | Encounter Summary ---
Author Organization [facility] Address [address] [place] [address]. [place], [place] [id number] [place] [id number] Care Team Providers Care Skates Operator Name Role Phone Unavailable Primary Care Provider Unavailabl e Encounter Details Date Type Department Care Team (Late st Contact Info) Description 02/11/2014 [facility] [address] [place] [address] , Dionicio Mabry MD Social History Tobacco [...]
--- OUTSIDE RECORDS SUMMARY | 2024-10-26 23:07 | XMS_ITS | Encounter Summary ---
Author Organization [facility] Address [address] [place] [address]. [place], [place] [address] [place] [address] Care Team Providers Care Multiple Spindle Screw Machine Operator Name Role Phone Unavailable Primary Care Provider Unavailabl e Encounter Details Date Type Department Care Team (Late st Contact Info) Description 09/09/2015 Abstract [facility] AT [address] [place] [address] , Dionicio Mabry MD Social [...] Comments Blood Pressure 132/80 09/09/2015 10:58 AM STAMP REDEMPTION CLERK Pulse 74 09/09/2015 10:57 AM STAMP REDEMPTION CLERK Temperature - - Respiratory Rate 14 09/09/2015 10:57 AM STAMP REDEMPTION CLERK Oxygen Saturation - - Inhaled Oxygen Concentration - - Weight 87.5 kg (193 lb) 09/09/2015 10:57 AM STAMP REDEMPTION CLERK Height 180.3 cm (5' 11 ) 09/09/2015 10:57 AM STAMP REDEMPTION CLERK Body Mass Index 26.92 09/09/2015 10:57 AM STAMP REDEMPTION CLERK documented in this encounter Plan of Treatment Not on file documented as of this encounter Visit Diagnoses Not on filedocumented in this encounter
--- OUTSIDE RECORDS SUMMARY | 2024-10-26 23:07 | XMS_ITS | Encounter Summary ---
Author Organization [facility] Address [address] [place] [address]. [place], [place] [address] [place] [address] Care Team Providers Care Court Magistrate Name Role Phone Unavailable Primary Care Provider Unavailabl e Encounter Details Date Type Department Care Team (Late st Contact Info) Description 09/22/2015 [facility] [address] [place] [address] , Dionicio Mabry MD Social History Tobacco [...]
--- OUTSIDE RECORDS SUMMARY | 2024-10-26 23:07 | XMS_ITS | Encounter Summary ---
Author Organization [facility] Address [facility]6 [facility]. [place], [place] [address] [place] [address] Care Team Providers Care Drive Thru Order Taker Name Role Phone Dennis Doran MD Primary Care Provider [phone] Joann Marquez-ERICA Unavailable [phone] Encounter Details Date Type Department Care Team (Late st Contact Info) Description 05/10/[address] [facility] CONVERSION [address] [place] [address] Bertrand Mckeon MD [address] [place] [address] [id number] Social History Tobacco Use Types Packs/Day Years [...] on filedocumented in this encounter Care Teams Drive Thru Order Taker Relationship Specialty Start Date End Date Dennis Doran MD PCP - General INTERNAL MEDICINE 02/28/17 10/23/23 Joann Marquez ANP-BC 619 [facility] 4P57 [place] [address] [place] Farmworker Pullet Farm NURSE PRACTITIONER 02/28/17 documented as of this encounter
--- OUTSIDE RECORDS SUMMARY | 2024-10-26 23:07 | XMS_ITS | Encounter Summary ---
Author Organization [facility] Address [address] [place] [address]. [place], [place] [address] [place] [address] Care Team Providers Care Art Psychotherapist Name Role Phone Dennis Doran MD Primary Care Provider [phone] Joann Marquez-BC Unavailable [phone] Encounter Details Date Type Department Care Team (Late st Contact Info) Description 06/24/2010 Abstract [facility] CONVERSION [address] [place] [address] Dennis Doran MD [facility] [place] [address] Social History Tobacco Use Types Packs/Day Years [...] on filedocumented in this encounter Care Teams Art Psychotherapist Relationship Specialty Start Date End Date Dennis Doran MD PCP - General INTERNAL MEDICINE 02/28/17 10/23/23 Joann Marquez ANP-BC [address] [facility] 4P57 [place] [address] [place] It Compliance Manager NURSE PRACTITIONER 02/28/17 documented as of this encounter
--- OUTSIDE RECORDS SUMMARY | 2024-10-26 23:07 | XMS_ITS | Encounter Summary ---
Author Organization [facility] Address [address] [place] [address]. [place], [place] [address] [place] [address] Care Team Providers Care Dental Prosthetist Name Role Phone Unavailable Primary Care Provider Unavailabl e Encounter Details Date Type Department Care Team (Late st Contact Info) Description 02/13/2014 [facility] [address] [place] [address] , Dionicio Mabry MD Social History Tobacco [...]
--- OUTSIDE RECORDS SUMMARY | 2024-10-26 23:07 | XMS_ITS | Encounter Summary ---
Author Organization [facility] Address [address] [place] [address]. [place], [place] [address] [place] [address] Care Team Providers Care Exercise Planner Name Role Phone Dennis Doran MD Primary Care Provider [phone] Joann Marquez-BC Unavailable [phone] Encounter Details Date Type Department Care Team (Late st Contact Info) Description 10/28/2008 Abstract [facility] CONVERSION [address] [place] [address] Elsi Kerns, DO [address] [place] [address] Social History Tobacco Use Types Packs/Day [...] on filedocumented in this encounter Care Teams Exercise Planner Relationship Specialty Start Date End Date Dennis Doran MD PCP - General INTERNAL MEDICINE 02/28/17 10/23/23 Joann Marquez ANP-BC [address] [facility][1] [address]P57 [place] [address] [place] Machine Operator NURSE PRACTITIONER 02/28/17 documented as of this encounter
--- OUTSIDE RECORDS SUMMARY | 2024-10-26 23:07 | XMS_ITS | Encounter Summary ---
Author Organization [facility] Address [address] [place] [address]. [place] [address] [place] [address] Care Team Providers Care Laboratory Helper Name Role Phone Dennis Doran MD Primary Care Provider [phone] Joann Marquez ANP-BC Unavailable [phone] Encounter Details Date Type Department Care Team (Late st Contact Info) Description 04/08/[address] [facility] Diagnostic Imaging [address] [place] [address] Saji Dee MD [facility] [address] [address] Social History Tobacco Use Types [...] on filedocumented in this encounter Care Teams Laboratory Helper Relationship Specialty Start Date End Date Dennis Doran MD PCP - General INTERNAL MEDICINE 02/28/17 10/23/23 Joann Marquez, ANP-BC [address] [facility] 4P57 [place] [address] [place] [employer] Executive NURSE PRACTITIONER 02/28/17 documented as of this encounter
--- OUTSIDE RECORDS SUMMARY | 2024-10-26 23:07 | XMS_ITS | Encounter Summary ---
Author Organization [facility] Address [address] [place] [address]. [place], [place] [address] [place] [address] Care Team Providers Care Photography Instructor Name Role Phone Unavailable Primary Care Provider Unavailabl e Encounter Details Date Type Department Care Team (Late st Contact Info) Description 11/02/2014 Abstract [facility] AT [address] [place] [address] , Dionicio Mabry MD Social History Tobacco [...]
--- OUTSIDE RECORDS SUMMARY | 2024-10-26 23:07 | XMS_ITS | Encounter Summary ---
Author Organization [facility] Address [address] [place] [address]. [place], [place] [address] [place] [address] Care Team Providers Care Shotblast Operator Name Role Phone Unavailable Primary Care Provider Unavailabl e Encounter Details Date Type Department Care Team (Late st Contact Info) Description 02/24/2014 Abstract [facility] AT [facility] [address] [place] [address] , Dionicio Mabry MD Social History Tobacco [...]
--- OUTSIDE RECORDS SUMMARY | 2024-10-26 23:07 | XMS_ITS | Encounter Summary ---
Author Organization [facility] Address [address] [place] [address]. 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 4P57 [place] [address] [place] Synchronous Motor Assembler NURSE PRACTITIONER 02/28/17 documented as of this encounter
--- OUTSIDE RECORDS SUMMARY | 2024-10-26 23:07 | XMS_ITS | Encounter Summary ---
Author Organization [facility] Address [facility]6 [facility] 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
--- OUTSIDE RECORDS SUMMARY | 2024-10-26 23:07 | XMS_ITS | Encounter Summary ---
Author Organization [facility] Address [address] [place] [address]. [place] [address] [place] [address] Care Team Providers Care Law Firm Consultant Name Role Phone Dennis Doran MD Primary Care Provider [phone] Joann Marquez-ERICA Unavailable Reason for Visit * Reason Onset Date Comments Refill Request 10/08/2019 Brilinta Encounter Details Date Type Department Care Team ([facility] st Contact Info) Description 10/08/2019 Telephone [employer] [facility] [address] [place] [address] Joann Marquez, AURELIANO-BC [address] [facility] 4P57 [place] [address] Refill Request (Brilinta ) Social [...] 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 SHELL GRINDER * Katherine Stauffer - 10/08/2019 11:54 AM CST Patient called requesting a 30 day refill of his Brilinta until he can get into the office for a f/up visit. He states he is almost out. He uses [facility] in [place]. Appt scheduled 10/17/19 at 9:45 am with Joann Marquez NP at [facility]. Patient verbalized understanding. Letter and med list mailed to patient. SHELL GRINDER documented in this encounter Plan of Treatment Not on file documented as of this encounter Visit Diagnoses Not on filedocumented in this encounter Care Teams Law Firm Consultant Relationship Specialty Start Date End Date Dennis Doran MD PCP - General INTERNAL MEDICINE 02/28/17 10/23/23 Joann Marquez, ANP- [address] [facility] [address] [address] [place] Courtroom Reporter NURSE PRACTITIONER 02/28/17 documented as of this encounter
--- OUTSIDE RECORDS SUMMARY | 2024-10-26 23:07 | XMS_ITS | Encounter Summary ---
Author Organization [facility] Address [facility]6 [facility]. [place], [place] [address] [place] [address] Care Team Providers Care Buzzsaw Operator Helper Name Role Phone Dennis Doran MD Primary Care Provider [phone] Joann Marquez-BC Unavailable [phone] Encounter Details Date Type Department Care Team (Late st Contact Info) Description 03/02/2008 Abstract [facility] CONVERSION [address] [place] [address] Elsi Kerns, DO [address] [place] [address] Social History Tobacco Use Types Packs/Day [...] on filedocumented in this encounter Care Teams Buzzsaw Operator Helper Relationship Specialty Start Date End Date Dennis Doran MD PCP - General INTERNAL MEDICINE 02/28/17 10/23/23 Joann Marquez ANP-BC [address] [facility] [address] [place] [address] [place] Fire Lieutenant NURSE PRACTITIONER 02/28/17 documented as of this encounter
--- OUTSIDE RECORDS SUMMARY | 2024-10-26 23:07 | XMS_ITS | Encounter Summary ---
Author Organization [facility] Address [address] [place] [address]. [place], [place] [address] [place] [address] Care Team Providers Care A P Mechanic Name Role Phone Unavailable Primary Care Provider Unavailabl e Encounter Details Date Type Department Care Team (Late st Contact Info) Description 01/19/2014 [facility] [address] [place] [address] , Dionicio Mabry MD Social [...]
--- OUTSIDE RECORDS SUMMARY | 2024-10-26 23:07 | XMS_ITS | Encounter Summary ---
Author Organization [facility] Address [address] [place] [address]. [place], [place] [address] [place] [address] Care Team Providers Care Rn Orthopedic Name Role Phone Unavailable Primary Care Provider Unavailabl e Encounter Details Date Type Department Care Team (Late st Contact Info) Description 09/27/2015 [facility] [address] [place] [address] , iDonicio Mabry MD Social History Tobacco Use Types [...]
--- OUTSIDE RECORDS SUMMARY | 2024-10-26 23:07 | XMS_ITS | Encounter Summary ---
Author Organization [facility] Address [address] [place] [address]. [place] [address] [place] [address] Care Team Providers Care Rotary Drum Dyer Name Role Phone Denins Doran MD Primary Care Provider [phone] Joann Marquez-ERICA Unavailable [phone] Reason for Visit * Reason Onset Date Comments Reschedule 10/24/2019 Encounter Details Date Type Department Care Team (Late st Contact Info) Description 10/24/2019 Telephone [employer] [facility] AT [facility] [address] [place] [address] Joann Marquez ANP-BC [address] [facility] [address] [place] [address] Reschedule Social History Tobacco Use [...] 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 Patient verbalized understanding. Letter and med list mailed to patient. NING SUPERVISOR documented in this encounter Plan of Treatment Not on file documented as of this encounter Visit Diagnoses Not on filedocumented in this encounter Care Teams Rotary Drum Dyer Relationship Specialty Start Date End Date Dennis Doran MD PCP - General INTERNAL MEDICINE 02/28/17 10/23/23 Joann Marquez, AURELIANO- [address] [facility] [address] [place] [address] [place] Consulting Practice Manager NURSE PRACTITIONER 02/28/17 documented as of this encounter
--- OUTSIDE RECORDS SUMMARY | 2024-10-26 23:07 | XMS_ITS | Encounter Summary ---
Author Organization [facility] Address [address] [place] [address]. [place] [address] [place] [address] Care Team Providers Care Globe Mounter Name Role Phone Dennis Doran MD Primary Care Provider [phone] Joann Marquez-ERICA Unavailable [phone] Encounter Details Date Type Department Care Team (Late st Contact Info) Description 03/18/2013 Abstract [facility] Diagnostic Imaging [address] [place] [address] Ho Bangura, AUTO DESIGN DETAILER [address], [place] [address] Social History Tobacco Use Types [...] site documented in this encounter Care Teams Globe Mounter Relationship Specialty Start Date End Date Dennis Doran MD PCP - General INTERNAL MEDICINE 02/28/17 10/23/23 Joann Marquez ANP-BC [address] [facility] [address] [place] [address] [place] Professor Of Biblical Studies NURSE PRACTITIONER 02/28/17 documented as of this encounter
--- OUTSIDE RECORDS SUMMARY | 2024-10-26 23:07 | XMS_ITS | Encounter Summary ---
Author Organization [facility] Address [address] [place] [address]. [place], [place] [address] [place] [address] Care Team Providers Care Wind Farm Engineer Name Role Phone Dennis Doran MD Primary Care Provider [phone] Joann Marquez-BC Unavailable [phone] Encounter Details Date Type Department Care Team (Late st Contact Info) Description 06/06/2010 Abstract [facility] CONVERSION [address] [place] [address] Denisha Hansen PA [address] [place] [address] Social History Tobacco Use Types Packs/Day Years [...] on filedocumented in this encounter Care Teams Wind Farm Engineer Relationship Specialty Start Date End Date Dennis Doran MD PCP - General INTERNAL MEDICINE 02/28/17 10/23/23 Joann Marquez, ANP-BC [address] [facility] [address] [place] [address] [place] Hotel Controller NURSE PRACTITIONER 02/28/17 documented as of this encounter
--- OUTSIDE RECORDS SUMMARY | 2024-10-26 23:07 | XMS_ITS | Encounter Summary ---
Author Organization [facility] Address [address] [place] [address]. 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 Not on file Not on file Not on file Not on file Not on file Not on file documented as of this encounter Plan of Treatment Not on file documented as of this encounter Visit Diagnoses Diagnosis Coronary artery disease involving [place] coronary artery of [place] heart without angina pectoris- Primary Essential hypertension Unspecified essential hypertension documented in this encounter Care Teams Peer Financial Counselor Relationship Specialty Start Date End Date Dennis Doran MD PCP - General INTERNAL MEDICINE 02/28/17 10/23/23 Joann Marquez, [facility]- [address] [facility] [address] [place] [address] [place] Event Decorator And Designer NURSE PRACTITIONER 02/28/17 documented as of this encounter
--- OUTSIDE RECORDS SUMMARY | 2024-10-26 23:07 | XMS_ITS | Encounter Summary ---
Author Organization [facility] Address [address] [place] [address]. [place], [place] [address] [place] [address] Care Team Providers Care Choir Director Name Role Phone Dennis Doran MD Primary Care Provider [phone] Joann Marquez [facility]- Unavailable [phone] Encounter Details Date Type Department Care Team (Late st Contact Info) Description 10/31/2019 [facility] [address] [place] [address] Dieter Arechiga MD 602 [facility] [address] [place] [address] Social History Tobacco Use Types Packs/Day [...] 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 Not on file Not on file Not on file Not on file Not on file Not on file documented as of this encounter Plan of Treatment Scheduled Orders Name Type Priority Associated Diagnoses Orde r Schedule ELECTROCARDIOGRAM EKG-NonRad Routine Coronary artery disease involving [place] coronary artery of [place] heart without angina pectoris Ordered: 10/31/2019 documented as of this encounter Visit Diagnoses Diagnosis Coronary artery disease involving [place] coronary artery of [place] heart without angina pectoris- Primary documented in this encounter Care Teams Choir Director Relationship Specialty Start Date End Date Dennis Doran MD PCP - General INTERNAL MEDICINE 02/28/17 10/23/23 Joann Marquez ANP- [address] [address] [place] Cat Wagon Operator NURSE PRACTITIONER 02/28/17 documented as of this encounter
--- OUTSIDE RECORDS SUMMARY | 2024-10-26 23:07 | XMS_ITS | Encounter Summary ---
Author Organization [facility] Address [address] [place] [address]. [place], [place] [address] [place] [address] Care Team Providers Care Bridge Rigger Name Role Phone Unavailable Primary Care Provider Unavailabl e Encounter Details Date Type Department Care Team (Late st Contact Info) Description 09/24/2015 Abstract [facility] [address] [place] [address] , Generic MD Clotilde Social [...] Diagnosis Comments CBC,CONVERSION Routine 09/24/2015 10:15 AM NEEDLE LEADER THYROID PANEL Routine 09/24/2015 10:15 AM NEEDLE LEADER COMPREHENSIVE METABOLIC PANEL Routine 09/24/2015 10:15 AM NEEDLE LEADER documented in this encounter Results * (ABNORMAL) COMPREHENSIVE METABOLIC PANEL (09/24/2015 10:15 AM NEEDLE LEADER) SODIUM S/P/B 139 135 - 147 mmol/L [...] TO EPIC CONVERSION 09/24/2015 10:1 5 AM NEEDLE LEADER 09/24/2015 10:15 AM NEEDLE LEADER Narrative MEDINFORMATIX TO EPIC CONVERSION - 09/24/2015 10:45 AM NEEDLE LEADER Reviewed by ARGENTINA Robledo ??4 2014 ??2:06:40:000PM us Generic Conversion Md [facility] Final R esult MEDINFORMATIX TO EPIC CONVERSION * (ABNORMAL) CBC,CONVERSION (09/24/2015 10:15 AM NEEDLE LEADER) WBC 7.57 4.00 - 10.80 K/cumm MEDINFORMATIX [...] TO EPIC CONVERSION 09/24/2015 10:1 5 AM NEEDLE LEADER 09/24/2015 10:15 AM NEEDLE LEADER Narrative MEDINFORMATIX TO EPIC CONVERSION - 09/24/2015 10:25 AM NEEDLE LEADER Reviewed by ARGENTINA Robledo ??4 2014 ??2:06:48:000PM us Generic Conversion Md [facility] Final R esult MEDINFORMATIX TO EPIC CONVERSION * THYROID PANEL (09/24/2015 10:15 AM NEEDLE LEADER) TSH ULTRASENSITIVE 1.90 0.35 - 4.94 mcIU/mL MEDINFORMATIX TO EPIC CONVERSION 09/24/2015 10:1 5 AM NEEDLE LEADER 09/24/2015 10:15 AM NEEDLE LEADER Narrative MEDINFORMATIX TO EPIC CONVERSION - 09/25/2015 5:41 AM NEEDLE LEADER Reviewed by ARGENTINA Robledo ??7 2014 ??8:55:06:000AM us Generic Conversion Md [facility] Final R esult MEDINFORMATIX TO EPIC CONVERSION documented in this encounter Visit Diagnoses Not on filedocumented in this encounter
--- OUTSIDE RECORDS SUMMARY | 2024-10-26 23:07 | XMS_ITS | Encounter Summary ---
Author Organization [facility] Address [address] [place] [address]. [place] [address] [place] [address] Care Team Providers Care Soda Dialyzer Name Role Phone Dennis Crump MD Primary Care Provider [phone] Joann Marquez-ERICA Unavailable [phone] Reason for Visit * Reason Comments Follow Up Encounter Details Date Type Department Care Team ([facility] st Contact Info) Description 12/24/2019 9:45 AM DRIVER/GUIDE Office Visit [facility] [address] [place] [address] Joann Marquez, AURELIANO-BC [address] [facility] [address] [place] [address] Follow Up Social History Tobacco Use Types [...] 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 Not on file Not on file Not on file Not on file Not on file Not on file documented as of this encounter Last Filed Vital Signs Vital Sign Reading Time Taken Comments Blood Pressure 140/78 12/24/2019 9:49 AM DRIVER/GUIDE Pulse 73 12/24/2019 9:43 AM DRIVER/GUIDE ekg Temperature - - Respiratory Rate 18 12/24/2019 9:43 AM DRIVER/GUIDE Oxygen Saturation - - Inhaled Oxygen Concentration - - Weight 94.7 kg (208 lb 12.8 oz) 12/24/2019 9:43 AM DRIVER/GUIDE Height 177.8 cm (5' 10 ) 12/24/2019 9:43 AM DRIVER/GUIDE Body Mass Index 29.96 12/24/2019 9:43 AM DRIVER/GUIDE documented in this encounter Patient Instructions * Patient Instructions* MARIO Mendenhall - 12/24/2019 9:45 AM DRIVER/GUIDE Stop Brilinta when you complete the current supply. You will take your first dose of Plavix (clopidogrel) on the same day you take your last dose of Brilinta. The following day you will take Plavix 75 mg daily and no further Brilinta. Stop aspirin after your second dose of Plavix. Stop smoking!! ER/GUIDE ER/GUIDE documented in this encounter Progress Notes * [...] Comments: Diagnoses/Impression: 1. Coronary artery disease involving [place] coronary artery of [place] heart without angina pectoris 2. Essential hypertension [...] April of 2018. He had presented to [facility] with some chest pain. He underwent [...] which shows sinus rhythm with possible septal SD. He has some chronic repolarization changes with [...] Visit Diagnoses Diagnosis Coronary artery disease involving [place] coronary artery of [place] heart without angina pectoris- Primary Essential hypertension Unspecified essential hypertension Hyperlipidemia, unspecified hyperlipidemia type Tobacco use Tobacco use disorder documented in this encounter Care Teams Soda Dialyzer Relationship Specialty Start Date End Date Dennis Crump MD PCP - General INTERNAL MEDICINE 02/28/17 10/23/23 Joann Marquez, ANP- [address] [facility] [address] [place] [address] [place] Campaign Specialist NURSE PRACTITIONER 02/28/17 documented as of this encounter
--- OUTSIDE RECORDS SUMMARY | 2024-10-26 23:07 | XMS_ITS | Encounter Summary ---
Author Organization [facility] Address [address] [place] [address]. 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
--- OUTSIDE RECORDS SUMMARY | 2024-10-26 23:07 | XMS_ITS | Encounter Summary ---
Author Organization [facility] Address [address] [place] [address]. [place], [place] [address] [place] [address] Care Team Providers Care Client Technical Specialist Name Role Phone Dennis Doran MD Primary Care Provider [phone] Joann Marquez [facility] Unavailable [phone] Encounter Details Date Type Department Care Team (Late st Contact Info) Description 02/20/2014 Abstract [facility] [address] [place] [address] Nate Sutton MD 602 [facility] [address] [place] [address] Social History Tobacco Use Types Packs/Day [...] CDT) 02/20/2014 10:0 4 AM CDT Narrative [facility] - 02/20/2014 1:59 PM CDT ? [facility] ? [address] [place], [place] ??[address] ? Test Date: ?2014-02-20 Pat Name: ? TANK KOWALSKI ?Department: ?? 1 ? Room: ? Gender: ? M ?Care Advocate: ?? : ?1975 ? Requested By: NATE SUTTON Order Number: [id number] ? Reading MD: ?? Kal Milton ? Measurements Intervals ?[place] ? Rate: ? 73 ? P: ?52 [place]: ? 139 ?QRS: ?-29 QRSD: ? 95 ? T: ?42 QT: ? 389 ? QTc: ?430 ? Interpretive Statements SINUS RHYTHM MODERATE LEFT AXIS DEVIATION [QRS AXIS < -20] Procedure Note , Generic MD Clotilde - 06/18/2019 [facility] [address] [place] [address] Test Date: 2014-02-20 Pat Name: TANK KOWALSKI Department: 1 Room: Gender: Care Advocate: : 1975 Requested By: NATE SUTTON Order Number: [id number] Reading MD: Kal Milton Measurements Intervals [place] Rate: 73 P: 52 [place]: 139 QRS: -29 QRSD: 95 T: 42 QT: 389 QTc: 430 Interpretive Statements SINUS RHYTHM MODERATE LEFT AXIS DEVIATION [QRS AXIS < -20] us Generic Conversion Md [facility] ORDERABLES Final R esult Performing Organization Address City/State/[facility] [place] Phone Number [facility] documented in this encounter Visit Diagnoses Diagnosis Chest pain Chest pain, unspecified documented in this encounter Care Teams Client Technical Specialist Relationship Specialty Start Date End Date Dennis Doran MD PCP - General INTERNAL MEDICINE 02/28/17 10/23/23 Joann Marquez ANP- [address] [facility] [address] [place] [address] [place] Art Tracer NURSE PRACTITIONER 02/28/17 documented as of this encounter
--- OUTSIDE RECORDS SUMMARY | 2024-10-26 23:07 | XMS_ITS | Encounter Summary ---
Author Organization [facility] Address [facility]6 [facility] 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
--- OUTSIDE RECORDS SUMMARY | 2024-10-26 23:07 | XMS_ITS | Encounter Summary ---
Author Organization [facility] Address [facility]6 [facility]. [place], [place] [address] [place] [address] Care Team Providers Care Slasher Runner Name Role Phone Dennis Doran MD Primary Care Provider [phone] Joann Marquez-BC Unavailable [phone] Encounter Details Date Type Department Care Team (Late st Contact Info) Description 06/25/2003 Abstract [facility] CONVERSION [address] [place] [address] , Generic Conversion, Social History Tobacco Use [...] on filedocumented in this encounter Care Teams Slasher Runner Relationship Specialty Start Date End Date Dennis Doran MD PCP - General INTERNAL MEDICINE 02/28/17 10/23/23 Joann Marquez ANP-BC [address] [place] [address] [address] [place] [address] [place] Iron Plastic Bullet Maker NURSE PRACTITIONER 02/28/17 documented as of this encounter
--- OUTSIDE RECORDS SUMMARY | 2024-10-26 23:07 | XMS_ITS | Encounter Summary ---
Author Organization [facility] Address [address] [place] [address]. [place] [address] [place] [address] Care Team Providers Care Data Coder Operator Name Role Phone Dennis Doran MD Primary Care Provider [phone] Joann Marquez Unavailable Reason for Visit * Reason Onset Date Comments Called To Cancel Office Appt. 10/31/2019 Encounter Details Date Type Department Care Team ([facility] st Contact Info) Description 10/31/2019 Telephone [facility] [address] [place] [address] Joann Marquez ANP-BC [address] [facility] [address] [place] [address] Called To Cancel Office Appt. 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 KERCHIEF SAMPLE CLERK * Katherine Stauffer - 11/05/2019 4:22 PM CST Patient called back to reschedule cancelled appt; rescheduled to 11/21/19 at 12:45 pm with EVARISTO Almanza at [facility]. He states he only has about 5 Brilinta left at home, and asked that we send a refill to [facility] in [place]. KERCHIEF SAMPLE CLERK * Katherine Stauffer - 10/31/2019 8:12 AM CST The patient called stating he is still sick and would like to cancel his appt this morning; he states he will call back next week to reschedule. KERCHIEF SAMPLE CLERK documented in this encounter Plan of Treatment Not on file documented as of this encounter Visit Diagnoses Not on filedocumented in this encounter Care Teams Data Coder Operator Relationship Specialty Start Date End Date Dennis Doran MD PCP - General INTERNAL MEDICINE 02/28/17 10/23/23 Joann Marquez ANP- [address] [facility] [address] [place] [address] [place] Maintenance Inspector NURSE PRACTITIONER 02/28/17 documented as of this encounter
--- OUTSIDE RECORDS SUMMARY | 2024-10-26 23:07 | XMS_ITS | Encounter Summary ---
Author Organization [facility] Address [address] [place] [address]. 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
--- OUTSIDE RECORDS SUMMARY | 2024-10-26 23:07 | XMS_ITS | Encounter Summary ---
Author Organization [facility] Address [address] [place] [address]. [place], [place] [address] [place] [address] Care Team Providers Care Suspender Maker Name Role Phone Dennis Doran MD Primary Care Provider [phone] Joann Marquez-BC Unavailable [phone] Encounter Details Date Type Department Care Team (Late st Contact Info) Description 06/07/2010 Abstract [facility] CONVERSION [address] [place] [address] Denisha Hansen PA [address] [place] [address] Social History Tobacco Use Types Packs/Day Years [...] on filedocumented in this encounter Care Teams Suspender Maker Relationship Specialty Start Date End Date Dennis Doran MD PCP - General INTERNAL MEDICINE 02/28/17 10/23/23 Joann Marquez ANP-BC [address] [facility] [address] [place] [address] [place] Commercial Loan Manager NURSE PRACTITIONER 02/28/17 documented as of this encounter
--- OUTSIDE RECORDS SUMMARY | 2024-10-26 23:07 | XMS_ITS | Encounter Summary ---
Author Organization [facility] Address [facility]6 [facility] [place] [address] [place] [address] Care Team Providers Care Bartender Manager Name Role Phone Dennis Doran MD Primary Care Provider [phone] Joann Marquez-ERICA Unavailable Reason for Visit * Reason Onset Date Comments Appointment Request 12/05/2019 Encounter Details Date Type Department Care Team ([facility] st Contact Info) Description 12/05/2019 Telephone [facility] [address] [place] [address] Joann Marquez, AURELIANO-BC [address] [facility] [address] [place] [address] Appointment Request Social History Tobacco [...] 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 K AND LOAD OPERATOR * Katherine Wagner Eh - 12/05/2019 4:08 PM CST Patient called asking when his next appt is scheduled, he thought it was later this month. His pharmacy told him his last refill of Brilinta was denied. I advised him I had him scheduled 11/21/19. Appt rescheduled to 12/24/19 at 9:45 am with Joann Marquez PROCESS ENGINEERING TECHNICIAN at [facility]. Patient verbalized understanding. Letter and med list mailed to patient. He asked that Brilinta be sent to [facility] in [place]. Patient may be reached at [phone] if any questions. K AND LOAD OPERATOR documented in this encounter Plan of Treatment Not on file documented as of this encounter Visit Diagnoses Not on filedocumented in this encounter Care Teams Bartender Manager Relationship Specialty Start Date End Date Dennis Doran MD PCP - General INTERNAL MEDICINE 02/28/17 10/23/23 Joann Marquez ANP- [address] [facility] [address] [place] [address] [place] Lubrication Servicer NURSE PRACTITIONER 02/28/17 documented as of this encounter
--- OUTSIDE RECORDS SUMMARY | 2024-10-26 23:07 | XMS_ITS | Encounter Summary ---
Author Organization [facility] Address [address] [place] [address]. [place], [place] [address] [place] [address] Care Team Providers Care Agricultural And Forestry Supervisor Name Role Phone Dennis Doran MD Primary Care Provider [phone] Joann Marquez [facility] Unavailable [phone] Encounter Details Date Type Department Care Team (Late st Contact Info) Description 02/24/2014 Abstract [facility] Assistant Manager [address] [place] [address] Nate Sutton MD 602 [facility] [address] [place] [address] Social History Tobacco Use Types Packs/Day [...] 02/24/2014 9:11 AM CDT Narrative [facility] - 02/24/2014 11:35 AM CDT ? [facility] ? [address] [place], [place] ??[address] ? Test Date: ?2014-02-24 Pat Name: ? TANK KOWALSKI ?Department: ?? 1 ? Room: ? Gender: ? M ?Supervisor Facepiece Line: ?? : ?1975 ? Requested By: NATE SUTTON Order Number: [id number] ? Reading MD: ?? [facility] ? Measurements Intervals ?[place] ? Rate: ? 69 ? P: ?59 NC: ? 128 ?QRS: ?-31 QRSD: ? 92 ? T: ?8 QT: ? 389 ? QTc: ?418 ? Interpretive Statements SINUS RHYTHM MARKED LEFT AXIS DEVIATION Cannot rule prior anterior infarct Procedure Note , Dionicio Mabry MD - 06/18/2019 [facility] [address] [place] [address] Test Date: 2014-02-24 Pat Name: TANK KOWALSKI Department: 1 Room: Gender: M Supervisor Facepiece Line: : 1975 Requested By: NATE SUTTON Order Number: [id number] Reading MD: Patricio Angeles Measurements Intervals [place] Rate: 69 P: 59 NC: 128 QRS: -31 QRSD: 92 T: 8 QT: 389 QTc: 418 Interpretive Statements SINUS RHYTHM MARKED LEFT AXIS DEVIATION Cannot rule prior anterior infarct us Generic Clotilde Pickard MD ECG ORDERABLES Final R esult Performing Organization Address City/State/[facility] Co de Phone Number [facility] documented in this encounter Visit Diagnoses Diagnosis Coronary atherosclerosis of [place] coronary artery documented in this encounter Care Teams Agricultural And Forestry Supervisor Relationship Specialty Start Date End Date Dennis Doran MD PCP - General INTERNAL MEDICINE 02/28/17 10/23/23 Joann Marquez ANP- [address] [facility] [address] [phone] [place] Collections Professional NURSE PRACTITIONER 02/28/17 documented as of this encounter
--- OUTSIDE RECORDS SUMMARY | 2024-10-26 23:07 | XMS_ITS | Encounter Summary ---
Author Organization [facility] Address [address] [place] [address]. [place], [place] [address] [place] [address] Care Team Providers Care Steward/Stewardess Third Class Name Role Phone Unavailable Primary Care Provider Unavailabl e Encounter Details Date Type Department Care Team (Late st Contact Info) Description 02/16/2014 Abstract [facility] [address] [place] [address] , Dionicio Mabry MD Social History Tobacco [...]
--- OUTSIDE RECORDS SUMMARY | 2024-10-26 23:07 | XMS_ITS | Encounter Summary ---
Author Organization [facility] Address [address] [place] [address]. [place], [place] [address] [place] [address] Care Team Providers Care Hose Operator Name Role Phone Unavailable Primary Care Provider Unavailabl e Encounter Details Date Type Department Care Team (Late st Contact Info) Description 02/16/2014 [facility] [address] [place] [address] , Dionicio Mabry MD Social History Tobacco [...]
--- OUTSIDE RECORDS SUMMARY | 2024-10-26 23:07 | XMS_ITS | Encounter Summary ---
Author Organization [facility] Address [address] [place] [address]. [place], [place] [address] [place] [address] Care Team Providers Care Nuclear Officer Name Role Phone Unavailable Primary Care Provider Unavailabl e Encounter Details Date Type Department Care Team (Late st Contact Info) Description 01/28/2014 [facility] [address] [place] [address] , Dionicio Mabry MD Social History Tobacco [...]
--- OUTSIDE RECORDS SUMMARY | 2024-10-26 23:07 | XMS_ITS | Encounter Summary ---
Author Organization [facility] Address [address] [place] [address]. [place], [place] [address] [place] [address] Care Team Providers Care Customer Account Specialist Name Role Phone Dennis Doran MD Primary Care Provider [phone] Joann Marquez-BC Unavailable [phone] Encounter Details Date Type Department Care Team (Late st Contact Info) Description 03/17/2009 Abstract [facility] Emergency Room [address] [place] [address] Social History Tobacco Use Types Packs/Day Years [...] filedocumented in this encounter Care Teams Customer Account Specialist Relationship Specialty Start Date End Date Dennis Doran MD PCP - General INTERNAL MEDICINE 02/28/17 10/23/23 Joann Marquez ANP-BC [address] [place] [address] [address] [place] [address] [place] Mine Manager NURSE PRACTITIONER 02/28/17 documented as of this encounter
--- OUTSIDE RECORDS SUMMARY | 2024-10-26 23:07 | XMS_ITS | Encounter Summary ---
Author Organization [facility] Address [address] [place] [address]. 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
--- OUTSIDE RECORDS SUMMARY | 2024-10-26 23:07 | XMS_ITS | Encounter Summary ---
Author Organization [facility] Address [address] [place] [address]. [place], [place] [address] [place] [address] Care Team Providers Care Marketing Administrative Assistant Name Role Phone Dennis Doran MD Primary Care Provider [phone] Joann Marquez-BC Unavailable [phone] Encounter Details Date Type Department Care Team (Late st Contact Info) Description 03/23/2009 Abstract [facility] [address] [place] [address] Saleem Rosas MD Social History Tobacco Use [...] filedocumented in this encounter Care Teams Marketing Administrative Assistant Relationship Specialty Start Date End Date Dennis Doran MD PCP - General INTERNAL MEDICINE 02/28/17 10/23/23 Joann Marquez ANP-BC [address] [place] [address] 4P57 [place] [address] [place] Supervisor Title NURSE PRACTITIONER 02/28/17 documented as of this encounter
--- OUTSIDE RECORDS SUMMARY | 2024-10-26 23:07 | XMS_ITS | Encounter Summary ---
Author Organization [facility] Address [facility]6 [facility] [address] [place] [address] Care Team Providers Care It Security Administrator Name Role Phone Dennis Doran MD Primary Care Provider [phone] Joann Marquez Unavailable [phone] Encounter Details Date Type Department Care Team (Late st Contact Info) Description 08/18/2012 Abstract [facility] Emergency Room [address] [place] [address] Barry Diez MD [address] [address] Social History Tobacco Use Types [...] giddiness documented in this encounter Care Teams It Security Administrator Relationship Specialty Start Date End Date Dennis Doran MD PCP - General INTERNAL MEDICINE 02/28/17 10/23/23 Joann Marquez ANP-BC [address] [facility] [address] [place] [address] [place] Podiatry Professor NURSE PRACTITIONER 02/28/17 documented as of this encounter
--- OUTSIDE RECORDS SUMMARY | 2024-10-26 23:07 | XMS_ITS | Encounter Summary ---
Author Organization [facility] Address [facility]. [place], [place] [address] [place] [address] Care Team Providers Care Shot Core Drill Operator Name Role Phone Dennis Doran MD Primary Care Provider [phone] Joann Marquez-ERICA Unavailable [phone] Encounter Details Date Type Department Care Team (Late st Contact Info) Description 06/16/2005 Abstract [facility] CONVERSION [address] [place] [address] Bertrand Mckeon MD [address] [place] [id number] Social History Tobacco Use Types Packs/Day Years [...] on filedocumented in this encounter Care Teams Shot Core Drill Operator Relationship Specialty Start Date End Date Dennis Doran MD PCP - General INTERNAL MEDICINE 02/28/17 10/23/23 Joann Marquez ANP-BC [address] [facility] [address] [place] [address] [place] Food Service Utility Worker NURSE PRACTITIONER 02/28/17 documented as of this encounter
--- OUTSIDE RECORDS SUMMARY | 2024-10-26 23:07 | XMS_ITS | Encounter Summary ---
Author Organization [facility] Address [address] [place] [address]. [place], [place] [address] [place] [address] Care Team Providers Care Dairy Machine Operator Farmworker Name Role Phone Unavailable Primary Care Provider Unavailabl e Encounter Details Date Type Department Care Team (Late st Contact Info) Description 01/11/2015 [facility] [address] [place] [address] , Dionicio Mabry MD Social History Tobacco [...]
--- OUTSIDE RECORDS SUMMARY | 2024-10-26 23:07 | XMS_ITS | Encounter Summary ---
Author Organization [facility] Address [facility] [place] [address] [place] [address] Care Team Providers Care Perinatal Tech Name Role Phone Dennis Doran MD Primary Care Provider [phone] Joann Marquez-BC Unavailable [phone] Encounter Details Date Type Department Care Team (Late st Contact Info) Description 03/22/2013 Abstract [facility] Diagnostic Imaging [address] [place] [address] Ho Bangura, SANITATION SUPERINTENDENT [address], [place] [address] Social History Tobacco Use Types [...] site documented in this encounter Care Teams Perinatal Tech Relationship Specialty Start Date End Date Dennis Doran MD PCP - General INTERNAL MEDICINE 02/28/17 10/23/23 Joann Marquez ANP-BC [address] [facility] [address] [place] [address] [place] Party Plan Selling Distributor NURSE PRACTITIONER 02/28/17 documented as of this encounter
--- OUTSIDE RECORDS SUMMARY | 2024-10-26 23:07 | XMS_ITS | Encounter Summary ---
Author Organization [facility] Address [address] [place] [address]. [place], [place] [address] [place] [address] Care Team Providers Care Deodorizer Operator Name Role Phone Unavailable Primary Care Provider Unavailabl e Encounter Details Date Type Department Care Team (Late st Contact Info) Description 02/11/2014 Abstract [facility] [address] [place] [address] , Dionicio Mabry MD Social History Tobacco [...]
--- OUTSIDE RECORDS SUMMARY | 2024-10-26 23:07 | XMS_ITS | Encounter Summary ---
Author Organization [facility] Address [address] [place] [address]. [place], [place] [address] [place] [address] Care Team Providers Care Medical Representative Name Role Phone Dennis Doran MD Primary Care Provider [phone] Joann Marquez-BC Unavailable Encounter Details Date Type Department Care Team (Late st Contact Info) Description 03/23/2009 Abstract [facility] CONVERSION [address] [place], [place] [address] Saleem Rosas MD Social History Tobacco Use [...] filedocumented in this encounter Care Teams Medical Representative Relationship Specialty Start Date End Date Dennis Doran MD PCP - General INTERNAL MEDICINE 02/28/17 10/23/23 Joann Marquez, ANP-BC [address] [facility] [address] [place] [address] [place] Kayak Maker NURSE PRACTITIONER 02/28/17 documented as of this encounter
--- OUTSIDE RECORDS SUMMARY | 2024-10-26 23:07 | XMS_ITS | Encounter Summary ---
Author Organization [facility] Address [address] [place] [address]. 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
--- OUTSIDE RECORDS SUMMARY | 2024-10-26 23:07 | XMS_ITS | Encounter Summary ---
Author Organization [facility] Address [address] [place] [address]. [place], [place] [address] [place] [address] Care Team Providers Care Transfer Table Operator Name Role Phone Dennis Doran MD Primary Care Provider [phone] Joann Marquez-BC Unavailable [phone] Encounter Details Date Type Department Care Team (Late st Contact Info) Description 02/24/2010 Abstract [facility] CONVERSION [address] [place] [address] Denisha Hansen PA [address] [place] [address] Social History Tobacco Use Types Packs/Day Years [...] on filedocumented in this encounter Care Teams Transfer Table Operator Relationship Specialty Start Date End Date Dennis Doran MD PCP - General INTERNAL MEDICINE 02/28/17 10/23/23 Joann Marquez, ANP-BC [address] [facility] [address] [place] [address] [place] Human Services Case Manager NURSE PRACTITIONER 02/28/17 documented as of this encounter
--- OUTSIDE RECORDS SUMMARY | 2024-10-26 23:07 | XMS_ITS | Encounter Summary ---
Author Organization [facility] Address [address] [place] [address]. [place], [place] [address] [place] [address] Care Team Providers Care Janitorial Services Supervisor Name Role Phone Unavailable Primary Care Provider Unavailabl e Encounter Details Date Type Department Care Team (Late st Contact Info) Description 09/27/2015 Abstract [facility] [address] [place] [address] , Dionicio Mabry MD Social History Tobacco [...]
--- OUTSIDE RECORDS SUMMARY | 2024-10-26 23:07 | XMS_ITS | Encounter Summary ---
Author Organization [facility] Address [address] [place] [address]. [place], [place] [address] [place] [address] Care Team Providers Care Putty Patcher Name Role Phone Unavailable Primary Care Provider Unavailabl e Encounter Details Date Type Department Care Team (Late st Contact Info) Description 09/24/2015 [facility] [address] [place] [address] , Dionicio Mabry MD Social History Tobacco [...]
--- OUTSIDE RECORDS SUMMARY | 2024-10-26 23:07 | XMS_ITS | Encounter Summary ---
Author Organization [facility] Address [address] [place] [address]. [place], [place] [address] [place] [address] Care Team Providers Care Mechanical Adjuster Name Role Phone Dennis Doran MD Primary Care Provider [phone] Jonan Marquez-BC Unavailable [phone] Encounter Details Date Type Department Care Team (Late st Contact Info) Description 03/02/2010 Abstract [facility] CONVERSION [address] [place] [address] Denisha Hansen PA 12[address] [place] [address] Social History Tobacco Use Types Packs/Day Years [...] on filedocumented in this encounter Care Teams Mechanical Adjuster Relationship Specialty Start Date End Date Dennis Doran MD PCP - General INTERNAL MEDICINE 02/28/17 10/23/23 Joann Marquez, ANP-BC [address] [facility] [address] [place] [address] [place] Kayak Maker NURSE PRACTITIONER 02/28/17 documented as of this encounter
--- OUTSIDE RECORDS SUMMARY | 2024-10-26 23:07 | XMS_ITS | Encounter Summary ---
Author Organization [facility] Address [facility]. [place], [place] [address] [place] [address] Care Team Providers Care Policy Manager Name Role Phone Dennis Doran MD Primary Care Provider [phone] Joann Marquez-ERICA Unavailable [phone] Encounter Details Date Type Department Care Team (Late st Contact Info) Description 07/27/2004 Abstract [facility] CONVERSION [address] [place] [address] Bertrand Mckeon MD [address] [place] [address] [id number] Social History Tobacco Use Types Packs/Day Years [...] on filedocumented in this encounter Care Teams Policy Manager Relationship Specialty Start Date End Date Dennis Doran MD PCP - General INTERNAL MEDICINE 02/28/17 10/23/23 Joann Marquez ANP-BC [address] [place] [address] 4P[address] [place] [address] [place] Tire Fixer NURSE PRACTITIONER 02/28/17 documented as of this encounter
--- OUTSIDE RECORDS SUMMARY | 2024-10-26 23:07 | XMS_ITS | Encounter Summary ---
Author Organization [facility] Address [address] [place] [address]. [place], [place] [address] [place] [address] Care Team Providers Care Audit Control Clerk Name Role Phone Dennis Doran MD Primary Care Provider [phone] Joann Marquez-BC Unavailable [phone] Encounter Details Date Type Department Care Team (Late st Contact Info) Description 06/04/2010 Abstract [facility] CONVERSION [address] [place] [address] Denisha Hansen PA [address] [place] [address] Social History Tobacco Use Types Packs/Day Years [...] on filedocumented in this encounter Care Teams Audit Control Clerk Relationship Specialty Start Date End Date Dennis Doran MD PCP - General INTERNAL MEDICINE 02/28/17 10/23/23 Joann Marquez, ANP-BC [address] [facility] [address] [place] [address] [place] Master Chef NURSE PRACTITIONER 02/28/17 documented as of this encounter
--- OUTSIDE RECORDS SUMMARY | 2024-10-26 23:07 | XMS_ITS | Encounter Summary ---
Author Organization [facility] Address [facility]6 [place] [address] [place] [address] Care Team Providers Care Air Chipper Name Role Phone Dennis Doran MD Primary Care Provider [phone] Joann Marquez-ERICA Unavailable Reason for Visit * Reason Onset Date Comments Reschedule 10/17/2019 Encounter Details Date Type Department Care Team (Late st Contact Info) Description 10/17/2019 Telephone [facility] [address] [place] [address] Joann Marquez, AURELIANO-BC [address] [facility] [address] [place] [address] Reschedule Social History Tobacco Use [...] 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 Patient verbalized understanding, and I thanked him for rescheduling. He states he does have enough medicine to last until then. Letter and med list mailed to patient. UATE STUDIES DEAN documented in this encounter Plan of Treatment Not on file documented as of this encounter Visit Diagnoses Not on filedocumented in this encounter Care Teams Air Chipper Relationship Specialty Start Date End Date Dennis Doran MD PCP - General INTERNAL MEDICINE 02/28/17 10/23/23 Joann Marquez, ANP- [address] [facility] [address] [place] [address] [place] [employer] Former NURSE PRACTITIONER 02/28/17 documented as of this encounter
--- OUTSIDE RECORDS SUMMARY | 2024-10-26 23:07 | XMS_ITS | Encounter Summary ---
Author Organization [facility] Address [address] [place] [address]. [place] [address] [place] [address] Care Team Providers Care Microsoft Dynamics Ax Developer Name Role Phone Dennis Doran MD Primary Care Provider [phone] Joann Marquez-ERICA Unavailable Reason for Visit * Reason Onset Date Comments Medication 05/14/2017 Encounter Details Date Type Department Care Team ([facility] st Contact Info) Description 05/14/2017 Telephone [facility] [address] [place] [address] Joann Marquez, MARIO [address] [facility] [address] [place] [address] Medication Social History Tobacco Use [...] 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 Insurance will cover Viagra or Cialis. Pharmacy may be reached at [phone]. documented in this encounter Plan of Treatment Not on file documented as of this encounter Visit Diagnoses Not on filedocumented in this encounter Care Teams Microsoft Dynamics Ax Developer Relationship Specialty Start Date End Date Dennis Doran MD PCP - General INTERNAL MEDICINE 02/28/17 10/23/23 Joann Marquez ANP-BC [address] [place] [address] [address] [place] Pullboat Engineer NURSE PRACTITIONER 02/28/17 documented as of this encounter
--- OUTSIDE RECORDS SUMMARY | 2024-10-26 23:07 | XMS_ITS | Encounter Summary ---
Author Organization [facility] Address [address] [place] [address]. [place], [place] [address] [place] [address] Care Team Providers Care Hydro Station Supervisor Name Role Phone Dennis Doran MD Primary Care Provider [phone] Joann Marquez-BC Unavailable [phone] Encounter Details Date Type Department Care Team (Late st Contact Info) Description 06/03/2010 Abstract [facility] CONVERSION [address] [place] [address] Denisha Hansen PA 1212 [place] [address] Social History Tobacco Use Types Packs/Day Years [...] on filedocumented in this encounter Care Teams Hydro Station Supervisor Relationship Specialty Start Date End Date Dennis Doran MD PCP - General INTERNAL MEDICINE 02/28/17 10/23/23 Joann Marquez, ANP-BC [address] [facility] [address] [place] [address] [place] Homogenizer Operator NURSE PRACTITIONER 02/28/17 documented as of this encounter
--- OUTSIDE RECORDS SUMMARY | 2024-10-26 23:07 | XMS_ITS | Encounter Summary ---
Author Organization [facility] Address [address] [place] [address]. [place], [place] [address] [place] [address] Care Team Providers Care Weather Forecaster Name Role Phone Unavailable Primary Care Provider Unavailabl e Encounter Details Date Type Department Care Team (Late st Contact Info) Description 02/13/2014 Abstract [facility] [address] [place] [address] , Dionicio Mabry MD Social History Tobacco [...]
--- OUTSIDE RECORDS SUMMARY | 2024-10-26 23:07 | XMS_ITS | Encounter Summary ---
Author Organization [facility] Address [address] [place] [address]. [place], [place] [address] [place] [address] Care Team Providers Care Imaging Technician Name Role Phone Unavailable Primary Care Provider Unavailabl e Encounter Details Date Type Department Care Team (Late st Contact Info) Description 01/28/2014 Abstract [facility] [address] [place] [address] , Generic Conversion, Social History [...]
--- OUTSIDE RECORDS SUMMARY | 2024-10-26 23:07 | XMS_ITS | Encounter Summary ---
Author Organization [facility] Address [facility] 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 Not on file documented as of this encounter Plan of Treatment Not on file documented as of this encounter Visit Diagnoses Not on filedocumented in this encounter Additional Health Concerns Infection Onset Date Last Indicated Resolved Time COVID-19 Rule Out 01/06/2022 01/06/2022 01/07/2022 2:32 PM CDT documented as of this encounter Care Teams Academic Advisor Relationship Specialty Start Date End Date Dennis Doran MD PCP - General INTERNAL MEDICINE 02/28/17 10/23/23 Denisha Hansen PA [address] [place] [address] PCP - General PHYSICIAN TELEVISION CAMERAMAN 10/24/23 Joann Marquez, ANP- [address] [facility] [address] [place] [address] [place] Voucher Examiner NURSE PRACTITIONER 02/28/17 documented as of this encounter
--- OUTSIDE RECORDS SUMMARY | 2024-10-26 23:07 | XMS_ITS | Encounter Summary ---
Author Organization [facility] Address [address] [place] [address]. [place], [place] [address] [place] [address] Care Team Providers Care Electric Meter Installer Name Role Phone Unavailable Primary Care Provider Unavailabl e Encounter Details Date Type Department Care Team (Late st Contact Info) Description 02/20/2014 Abstract [facility] AT [facility] [address] [place] [address] , Generic ConversionMD Social History [...]
--- OUTSIDE RECORDS SUMMARY | 2024-10-26 23:07 | XMS_ITS | Encounter Summary ---
Author Organization [facility] Address [address] [place] [address]. [place], [place] [address] [place] [address] Care Team Providers Care Shoe Packer Name Role Phone Unavailable Primary Care Provider Unavailabl e Encounter Details Date Type Department Care Team (Late st Contact Info) Description 09/15/2014 [facility] [address] [place] [address] , Dionicio Mabry MD Social History Tobacco [...]
--- OUTSIDE RECORDS SUMMARY | 2024-10-26 23:07 | XMS_ITS | Encounter Summary ---
Author Organization [facility] Address [facility] [place], [place] [address] [place] [address] Care Team Providers Care Train Starter Name Role Phone Dennis Doran MD Primary Care Provider [phone] Joann Marquez-ERICA Unavailable [phone] Encounter Details Date Type Department Care Team (Late st Contact Info) Description 04/17/2005 Abstract [facility] CONVERSION [address] [place] [address] Bertrand Mckeon MD [address] [place] [address] [id number] Social History Tobacco Use Types Packs/Day Years [...] on filedocumented in this encounter Care Teams Train Starter Relationship Specialty Start Date End Date Dennis Doran MD PCP - General INTERNAL MEDICINE 02/28/17 10/23/23 Joann Marquez ANP-BC [address] [place] [address] 4P57 [place] [address] [place] Linter Tender NURSE PRACTITIONER 02/28/17 documented as of this encounter
--- OUTSIDE RECORDS SUMMARY | 2024-10-26 23:07 | XMS_ITS | Encounter Summary ---
Author Organization [facility] Address [facility]. [place], [place] [address] [place] [address] Care Team Providers Care Cloud Systems Architect Name Role Phone Dennis Doran MD Primary Care Provider [phone] Joann Marquez-BC Unavailable [phone] Encounter Details Date Type Department Care Team (Late st Contact Info) Description 10/12/2003 Abstract [facility] CONVERSION [address] [place] [address] , Generic Conversion, Social History Tobacco Use [...] on filedocumented in this encounter Care Teams Cloud Systems Architect Relationship Specialty Start Date End Date Dennis Doran MD PCP - General INTERNAL MEDICINE 02/28/17 10/23/23 Joann Marquez ANP-BC [address] [place] [address] 4P57 [place] [address] [place] Clearing Inspector NURSE PRACTITIONER 02/28/17 documented as of this encounter
--- OUTSIDE RECORDS SUMMARY | 2024-10-26 23:07 | XMS_ITS | Encounter Summary ---
Author Organization [facility] Address [facility]. [place], [place] [address] [place] [address] Care Team Providers Care Materials Recycler Name Role Phone Dennis Doran MD Primary Care Provider [phone] Joann Marquez-ERICA Unavailable [phone] Encounter Details Date Type Department Care Team (Late st Contact Info) Description 02/10/2004 Abstract [facility] CONVERSION [address] [place] [address] Bertrand Mckeon MD [address] [place] [address] [id number] Social History Tobacco Use Types Packs/Day Years [...] on filedocumented in this encounter Care Teams Materials Recycler Relationship Specialty Start Date End Date Dennis Doran MD PCP - General INTERNAL MEDICINE 02/28/17 10/23/23 Joann Marquez ANP-BC [address] [place] [address] 4P[address] [place] [address] Ramona Overlocker NURSE PRACTITIONER 02/28/17 documented as of this encounter
--- OUTSIDE RECORDS SUMMARY | 2024-10-26 23:07 | XMS_ITS | Encounter Summary ---
Author Organization [facility] Address [address] [place] [address]. [place] [address] [place] [address] Care Team Providers Care Commercial Accountant Name Role Phone Dennis Crump MD Primary Care Provider [phone] Joann Marquez-ERICA Unavailable [phone] Reason for Visit * Reason Comments Follow Up Encounter Details Date Type Department Care Team ([facility] st Contact Info) Description 05/04/2017 9:15 AM CDT Office Visit [facility] [address] [place] [address] Joann Marquez, AURELIANO-BC [address] [facility] [address]P57 [place] [address] Follow Up Social History Tobacco [...] 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 I did give him instructions on how [...] heart healthy diet. [facility] 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 Diagnoses/Impression: 1. Coronary artery disease involving lower brule coronary artery of lower brule heart without angina pectoris 2. Hyperlipidemia, unspecified hyperlipidemia type 3. Essential hypertension PINNACLE Documentation Completed: Coronary Artery Disease PCP: DENNIS CRUMP documented in this encounter Plan of Treatment Not on file documented as of this encounter Visit Diagnoses Diagnosis Coronary artery disease involving lower brule coronary artery of lower brule heart without angina pectoris- Primary Hyperlipidemia, unspecified hyperlipidemia type Essential hypertension Unspecified essential hypertension documented in this encounter Care Teams Commercial Accountant Relationship Specialty Start Date End Date Dennis Crump MD PCP - General INTERNAL MEDICINE 02/28/17 10/23/23 Joann Marquez ANP-BC [address] [phone] [place] Electrode Turner And Finisher NURSE PRACTITIONER 02/28/17 documented as of this encounter
--- OUTSIDE RECORDS SUMMARY | 2024-10-26 23:07 | XMS_ITS | Encounter Summary ---
Author Organization [facility] Address [facility]6 [facility]. [place], [place] [address] [place] [address] Care Team Providers Care High School Art Teacher Name Role Phone Dennis Doran MD Primary Care Provider [phone] Joann Marquez-BC Unavailable [phone] Encounter Details Date Type Department Care Team (Late st Contact Info) Description 02/11/2014 Abstract [facility] [address] [place] [address] Dieter Arechiga MD [address] [address] Social History Tobacco Use Types [...] HHS/HCC) documented in this encounter Care Teams High School Art Teacher Relationship Specialty Start Date End Date Dennis Doran MD PCP - General INTERNAL MEDICINE 02/28/17 10/23/23 Joann Marquez, AURELIANO-BC [address] [facility] [address] [place] [address] [place] Client Renewal Specialist NURSE PRACTITIONER 02/28/17 documented as of this encounter
--- OUTSIDE RECORDS SUMMARY | 2024-10-26 23:07 | XMS_ITS | Encounter Summary ---
Author Organization [facility] Address [facility]. [place], [place] [address] [place] [address] Care Team Providers Care Doper Operator Name Role Phone Dennis Doran MD Primary Care Provider [phone] Joann Marquez-ERICA Unavailable [phone] Encounter Details Date Type Department Care Team (Late st Contact Info) Description 10/04/2004 Abstract [facility] CONVERSION [address] [place] [address] Bertrand Mckeon MD [address] [place] [address] [id number] Social History Tobacco Use Types Packs/Day Years [...] on filedocumented in this encounter Care Teams Doper Operator Relationship Specialty Start Date End Date Dennis Doran MD PCP - General INTERNAL MEDICINE 02/28/17 10/23/23 Joann Marquez ANP-BC 619 [facility] [address] [place] [address] [place] Circuit Judge NURSE PRACTITIONER 02/28/17 documented as of this encounter
--- OUTSIDE RECORDS SUMMARY | 2024-10-26 23:07 | XMS_ITS | Encounter Summary ---
Author Organization [facility] Address [address] [place] [address]. [place], [place] [address] [place] [address] Care Team Providers Care Bar Machine Operator Name Role Phone Unavailable Primary Care Provider Unavailabl e Encounter Details Date Type Department Care Team (Late st Contact Info) Description 09/09/2015 [facility] [address] [place] [address] , Dionicio Mabry MD Social History Tobacco [...]
--- OUTSIDE RECORDS SUMMARY | 2024-10-26 23:07 | XMS_ITS | Encounter Summary ---
Author Organization [facility] Address [facility]6 [facility]. [place], [place] [address] [place] [address] Care Team Providers Care Controls Technician Name Role Phone Dennis Doran MD Primary Care Provider [phone] Joann Marquez-BC Unavailable [phone] Encounter Details Date Type Department Care Team (Late st Contact Info) Description 10/03/2007 Abstract [facility] CONVERSION [address] [place] [address] Elsi Kerns, DO [address] [place] [address] Social History Tobacco Use Types Packs/Day [...] on filedocumented in this encounter Care Teams Controls Technician Relationship Specialty Start Date End Date Dennis Doran MD PCP - General INTERNAL MEDICINE 02/28/17 10/23/23 Joann Marquez ANP-BC [address] E [facility] [address] [place] [address] [place] Supervisor Pipe Finishing NURSE PRACTITIONER 02/28/17 documented as of this encounter
--- OUTSIDE RECORDS SUMMARY | 2024-10-26 23:07 | XMS_ITS | Encounter Summary ---
Author Organization [facility] Address [facility]6 [facility] [place] [address] [place] [address] Care Team Providers Care Dictating Transcribing Machine Servicer Name Role Phone Dennis Doran MD Primary Care Provider [phone] Joann Marquez ANP-BC Unavailable [phone] Encounter Details Date Type Department Care Team (Late st Contact Info) Description 12/31/2007 Abstract [facility] CONVERSION [address] [place] [address] Mike Toledo MD [address] [place] [address] Social History Tobacco Use Types Packs/Day [...] on filedocumented in this encounter Care Teams Dictating Transcribing Machine Servicer Relationship Specialty Start Date End Date Dennis Doran MD PCP - General INTERNAL MEDICINE 02/28/17 10/23/23 Joann Marquez, ANP-BC [address] [facility] [address] [place] [address] [place] Control Systems Designer NURSE PRACTITIONER 02/28/17 documented as of this encounter
--- OUTSIDE RECORDS SUMMARY | 2024-10-26 23:07 | XMS_ITS | Encounter Summary ---
Author Organization [facility] Address [address] [place] [address]. [place], [place] [address] [place] [address] Care Team Providers Care Online Merchandising Coordinator Name Role Phone Dennis Doran MD Primary Care Provider [phone] Joann Marquez-BC Unavailable [phone] Encounter Details Date Type Department Care Team (Late st Contact Info) Description 06/22/2009 Abstract [facility] CONVERSION [address] [place] [address] Elsi Kerns, DO [address] [place] [address] Social History Tobacco Use Types Packs/Day [...] on filedocumented in this encounter Care Teams Online Merchandising Coordinator Relationship Specialty Start Date End Date Dennis Doran MD PCP - General INTERNAL MEDICINE 02/28/17 10/23/23 Joann Marquez ANP-BC [address] [facility] [address] [place] [address] [place] Pen Tender NURSE PRACTITIONER 02/28/17 documented as of this encounter
--- OUTSIDE RECORDS SUMMARY | 2024-10-26 23:07 | XMS_ITS | Encounter Summary ---
Author Organization [facility] Address [facility]6 [place] [address] [place] [address] Care Team Providers Care Accounting Machine Servicer Name Role Phone Dennis Doran MD Primary Care Provider [phone] Joann Marquez-ERICA Unavailable [phone] Encounter Details Date Type Department Care Team (Late st Contact Info) Description 05/06/2006 Abstract [facility] Emergency Room [address] [place] [address] Mateusz [place] MD [address] [place] [address] Social History Tobacco Use Types [...] 10/23/23 Joann Marquez ANP-BC [address] [facility] [address] [place] [address] [place] Skein Washer NURSE PRACTITIONER 02/28/17 documented as of this encounter
--- OUTSIDE RECORDS SUMMARY | 2024-10-26 23:07 | XMS_ITS | Encounter Summary ---
Author Organization [facility] Address [address] [place] [address]. [place], [place] [address] [place] [address] Care Team Providers Care Studio Associate Name Role Phone Unavailable Primary Care Provider Unavailabl e Encounter Details Date Type Department Care Team (Late st Contact Info) Description 11/02/2014 [facility] [address] [place] [address] , Dionicio Mabry MD Social History Tobacco [...]
--- OUTSIDE RECORDS SUMMARY | 2024-10-26 23:07 | XMS_ITS | Encounter Summary ---
Author Organization [facility] Address [address] [place] [address]. [place], [place] [address] [place] [address] Care Team Providers Care Grounds Cleaner Name Role Phone Unavailable Primary Care Provider Unavailabl e Encounter Details Date Type Department Care Team (Late st Contact Info) Description 09/22/2015 Abstract [facility] [address] [place] [address] , Dionicio Mabry MD Social History Tobacco [...]
--- OUTSIDE RECORDS SUMMARY | 2024-10-26 23:08 | XMS_ITS | Encounter Summary ---
Author Organization [facility] Address [facility]6 [facility]. [place], [place] [address] [place] [address] Care Team Providers Care Senior Asp Net Developer Name Role Phone Dennis Doran MD Primary Care Provider [phone] Joann Marquez-BC Unavailable [phone] Encounter Details Date Type Department Care Team (Late st Contact Info) Description 01/31/1994 Abstract [facility] CONVERSION [address] [place] [address] , Generic Conversion, Social History Tobacco Use [...] filedocumented in this encounter Care Teams Senior Asp Net Developer Relationship Specialty Start Date End Date Dennis Doran MD PCP - General INTERNAL MEDICINE 02/28/17 10/23/23 Joann Marquez ANP-BC [address] [place] [address] 4P57 [place] [address] [place] Tile Power Shear Operator NURSE PRACTITIONER 02/28/17 documented as of this encounter
--- OUTSIDE RECORDS SUMMARY | 2024-10-26 23:08 | XMS_ITS | Encounter Summary ---
Author Organization [facility] Address [facility]6 [facility]. [place], [place] [address] [place] [address] Care Team Providers Care Street And Building Decorator Name Role Phone Dennis Doran MD Primary Care Provider [phone] Joann Marquez-BC Unavailable [phone] Encounter Details Date Type Department Care Team (Late st Contact Info) Description 04/08/1996 Abstract [facility] CONVERSION [address] [place] [address] , Generic Conversion, Social History Tobacco Use [...] on filedocumented in this encounter Care Teams Street And Building Decorator Relationship Specialty Start Date End Date Dennis Doran MD PCP - General INTERNAL MEDICINE 02/28/17 10/23/23 Joann Marquez ANP-BC [address] [place] [address] 4P57 [place] [address] [place] Rn Baby NURSE PRACTITIONER 02/28/17 documented as of this encounter
--- OUTSIDE RECORDS SUMMARY | 2024-10-26 23:08 | XMS_ITS | Encounter Summary ---
Author Organization [facility] Address [facility]6 [facility]. [place], [place] [address] [place] [address] Care Team Providers Care Geology Instructor Name Role Phone Dennis Doran MD Primary Care Provider [phone] Joann Marquez-BC Unavailable [phone] Encounter Details Date Type Department Care Team (Late st Contact Info) Description 03/26/1995 Abstract [facility] CONVERSION [address] [place] [address] , Generic Conversion, Social History Tobacco Use [...] on filedocumented in this encounter Care Teams Geology Instructor Relationship Specialty Start Date End Date Dennis Doran MD PCP - General INTERNAL MEDICINE 02/28/17 10/23/23 Joann Marquez ANP-BC [address] [place] [address] 4P57 [place] [address] [place] Systems Analyst NURSE PRACTITIONER 02/28/17 documented as of this encounter
--- OUTSIDE RECORDS SUMMARY | 2024-10-26 23:08 | XMS_ITS | Encounter Summary ---
Author Organization [facility] Address [facility]6 [facility]. [place], [place] [address] [place] [address] Care Team Providers Care Lead Mechanic Name Role Phone Dennis Doran MD Primary Care Provider [phone] Joann Marquez-BC Unavailable [phone] Encounter Details Date Type Department Care Team (Late st Contact Info) Description 10/03/2001 Abstract [facility] CONVERSION [address] [place] [address] , Generic Conversion, Social History Tobacco Use [...] on filedocumented in this encounter Care Teams Lead Mechanic Relationship Specialty Start Date End Date Dennis Doran MD PCP - General INTERNAL MEDICINE 02/28/17 10/23/23 Joann Marquez ANP-BC [address] [place] [address] 4P57 [place] [address] [place] Hydraulic Auto Jack Mechanic NURSE PRACTITIONER 02/28/17 documented as of this encounter
--- OUTSIDE RECORDS SUMMARY | 2024-10-26 23:08 | XMS_ITS | Encounter Summary ---
Author Organization [facility] Address [facility]6 [facility]. [place], [place] [address] [place] [address] Care Team Providers Care Home Care Manager Name Role Phone Dennis Doran MD Primary Care Provider [phone] Joann Marquez-BC Unavailable [phone] Encounter Details Date Type Department Care Team (Late st Contact Info) Description 12/21/1995 Abstract [facility] CONVERSION [address] [place] [address] , Generic Conversion, Social History Tobacco Use [...] on filedocumented in this encounter Care Teams Home Care Manager Relationship Specialty Start Date End Date Dennis Doran MD PCP - General INTERNAL MEDICINE 02/28/17 10/23/23 Joann Marquez ANP-BC [address] [place] [address] 4P57 [place] [address] [place] Hammer Shop Supervisor NURSE PRACTITIONER 02/28/17 documented as of this encounter
--- OUTSIDE RECORDS SUMMARY | 2024-10-26 23:08 | XMS_ITS | Encounter Summary ---
Author Organization [facility] Address [facility]6 [facility]. [place], [place] [address] [place] [address] Care Team Providers Care Corsets Salesperson Name Role Phone Dennis Doran MD Primary Care Provider [phone] Joann Marquez-BC Unavailable [phone] Encounter Details Date Type Department Care Team (Late st Contact Info) Description 01/07/2002 Abstract [facility] CONVERSION [address] [place] [address] , Generic Conversion, Social History Tobacco Use [...] on filedocumented in this encounter Care Teams Corsets Salesperson Relationship Specialty Start Date End Date Dennis Doran MD PCP - General INTERNAL MEDICINE 02/28/17 10/23/23 Joann Marquez ANP-BC [address] [place] [address] 4P[address] [place] [address] Strong General Assembler NURSE PRACTITIONER 02/28/17 documented as of this encounter
--- OUTSIDE RECORDS SUMMARY | 2024-10-26 23:08 | XMS_ITS | Encounter Summary ---
Author Organization [facility] Address [facility]. [place], [place] [address] [place] [address] Care Team Providers Care Tire Tester Name Role Phone Dennis Doran MD Primary Care Provider [phone] Joann Marquez-BC Unavailable [phone] Encounter Details Date Type Department Care Team (Late st Contact Info) Description 08/25/2002 Abstract [facility] CONVERSION [address] [place] [address] , Generic Conversion, Social History Tobacco Use [...] on filedocumented in this encounter Care Teams Tire Tester Relationship Specialty Start Date End Date Dennis Doran MD PCP - General INTERNAL MEDICINE 02/28/17 10/23/23 Joann Marquez ANP-BC [address] [place] [address] 4P57 [place] [address] [place] Patient Relations Representative NURSE PRACTITIONER 02/28/17 documented as of this encounter
--- OUTSIDE RECORDS SUMMARY | 2024-10-26 23:08 | XMS_ITS | Encounter Summary ---
Author Organization [facility] Address [facility]6 [facility]. [place], [place] [address] [place] [address] Care Team Providers Care Technician Plant And Maintenance Name Role Phone Dennis Doran MD Primary Care Provider [phone] Joann Marquez-BC Unavailable [phone] Encounter Details Date Type Department Care Team (Late st Contact Info) Description 03/13/1999 Abstract [facility] CONVERSION [address] [place] [address] , Generic Conversion, Social History Tobacco Use [...] on filedocumented in this encounter Care Teams Technician Plant And Maintenance Relationship Specialty Start Date End Date Dennis Doran MD PCP - General INTERNAL MEDICINE 02/28/17 10/23/23 Joann Marquez ANP-BC [address] [place] [address] 4P57 [place] [address] [place] Manager NURSE PRACTITIONER 02/28/17 documented as of this encounter
--- OUTSIDE RECORDS SUMMARY | 2024-10-26 23:08 | XMS_ITS | Encounter Summary ---
Author Organization [facility] Address [facility] [facility]. [place], [place] [address] [place] [address] Care Team Providers Care Boxing Instructor Name Role Phone Dennis Doran MD Primary Care Provider [phone] Joann Marquez-BC Unavailable [phone] Encounter Details Date Type Department Care Team (Late st Contact Info) Description 09/28/1993 Abstract [facility] CONVERSION [address] [place] [address] , Generic Conversion, Social History Tobacco Use [...] on filedocumented in this encounter Care Teams Boxing Instructor Relationship Specialty Start Date End Date Dennis Doran MD PCP - General INTERNAL MEDICINE 02/28/17 10/23/23 Joann Marquez ANP-BC [address] [place] [address] 4P[address] [place] [address] [place] Supply Chain Analyst NURSE PRACTITIONER 02/28/17 documented as of this encounter
--- OUTSIDE RECORDS SUMMARY | 2024-10-26 23:08 | XMS_ITS | Encounter Summary ---
Author Organization [facility] Address [facility]6 [facility]. [place], [place] [address] [place] [address] Care Team Providers Care Cloth Layer Name Role Phone Dennis Doran MD Primary Care Provider [phone] Joann Marquez-BC Unavailable [phone] Encounter Details Date Type Department Care Team (Late st Contact Info) Description 05/13/1997 Abstract [facility] CONVERSION [address] [place] [address] , Generic Conversion, Social History Tobacco Use [...] filedocumented in this encounter Care Teams Cloth Layer Relationship Specialty Start Date End Date Dennis Doran MD PCP - General INTERNAL MEDICINE 02/28/17 10/23/23 Joann Marquez ANP-BC [address] [place] [address] 4P57 [place] [address] [place] Crtt NURSE PRACTITIONER 02/28/17 documented as of this encounter
--- OUTSIDE RECORDS SUMMARY | 2024-10-26 23:08 | XMS_ITS | Encounter Summary ---
Author Organization [facility] Address [facility]6 [facility]. [place], [place] [address] [place] [address] Care Team Providers Care Roving Carrier Name Role Phone Dennis Doran MD Primary Care Provider [phone] Joann Marquez-BC Unavailable [phone] Encounter Details Date Type Department Care Team (Late st Contact Info) Description 04/09/1996 Abstract [facility] CONVERSION [address] [place] [address] , Generic Conversion, Social History Tobacco Use [...] on filedocumented in this encounter Care Teams Roving Carrier Relationship Specialty Start Date End Date Dennis Doran MD PCP - General INTERNAL MEDICINE 02/28/17 10/23/23 Joann Marquez ANP-BC [address] [place] [address] 4P57 [place] [address] [place] Floorworker NURSE PRACTITIONER 02/28/17 documented as of this encounter
--- OUTSIDE RECORDS SUMMARY | 2024-10-26 23:08 | XMS_ITS | Encounter Summary ---
Author Organization [facility] Address [facility]. [place], [place] [address] [place] [address] Care Team Providers Care Sound Controller Name Role Phone Dennis Doran MD Primary Care Provider [phone] Joann Marquez-BC Unavailable [phone] Encounter Details Date Type Department Care Team (Late st Contact Info) Description 06/16/2002 Abstract [facility] CONVERSION [address] [place] [address] , Generic Conversion, Social History Tobacco Use [...] on filedocumented in this encounter Care Teams Sound Controller Relationship Specialty Start Date End Date Dennis Doran MD PCP - General INTERNAL MEDICINE 02/28/17 10/23/23 Joann Marquez ANP-BC [address] [place] [address] 4P57 [place] [address] Kite Coating Machine Helper NURSE PRACTITIONER 02/28/17 documented as of this encounter
--- OUTSIDE RECORDS SUMMARY | 2024-10-26 23:08 | XMS_ITS | Encounter Summary ---
Author Organization [facility] Address [facility]6 [facility]. [place], [place] [address] [place] [address]147 Care Team Providers Care Coffee Blender Name Role Phone Dennis Doran MD Primary Care Provider [phone] Joann Marquez-BC Unavailable [phone] Encounter Details Date Type Department Care Team (Late st Contact Info) Description 06/18/1995 Abstract [facility] CONVERSION [address] [place] [address] , Generic Conversion, Social History Tobacco Use [...] on filedocumented in this encounter Care Teams Coffee Blender Relationship Specialty Start Date End Date Dennis Doran MD PCP - General INTERNAL MEDICINE 02/28/17 10/23/23 Joann Marquez ANP-BC [address] [place] [address] 4[address] [place] [address] [place] Boat Pilot NURSE PRACTITIONER 02/28/17 documented as of this encounter
--- OUTSIDE RECORDS SUMMARY | 2024-10-26 23:08 | XMS_ITS | Encounter Summary ---
Author Organization [facility] Address [facility]6 [facility]. [place], [place] [address] [place] [address] Care Team Providers Care Job Honer Name Role Phone Dennis Doran MD Primary Care Provider [phone] Joann Marquez-BC Unavailable [phone] Encounter Details Date Type Department Care Team (Late st Contact Info) Description 10/10/2001 Abstract [facility] CONVERSION [address] [place] [address] , Generic Conversion, Social History Tobacco Use [...] filedocumented in this encounter Care Teams Job Honer Relationship Specialty Start Date End Date Dennis Doran MD PCP - General INTERNAL MEDICINE 02/28/17 10/23/23 Joann Marquez ANP-BC [address] [place] [address] 4[address] [place] [address] West Belt Machine Operator NURSE PRACTITIONER 02/28/17 documented as of this encounter
--- OUTSIDE RECORDS SUMMARY | 2024-10-26 23:08 | XMS_ITS | Encounter Summary ---
Author Organization [facility] Address [facility]. [place], [place] [address] [place] [address] Care Team Providers Care District Home Economics Agent Name Role Phone Dennis Doran MD Primary Care Provider [phone] Joann Marquez-BC Unavailable [phone] Encounter Details Date Type Department Care Team (Late st Contact Info) Description 04/21/1996 Abstract [facility] CONVERSION [address] [place] [address] , Generic Conversion, Social History Tobacco Use [...] on filedocumented in this encounter Care Teams District Home Economics Agent Relationship Specialty Start Date End Date Dennis Doran MD PCP - General INTERNAL MEDICINE 02/28/17 10/23/23 Joann Marquez ANP-BC [address] [place] [address] 4[address] [place] [address] [place] Feed Handler NURSE PRACTITIONER 02/28/17 documented as of this encounter
--- OUTSIDE RECORDS SUMMARY | 2024-10-26 23:08 | XMS_ITS | Encounter Summary ---
Author Organization [facility] Address [facility]6 [facility]. [place], [place] [address] [place] [address] Care Team Providers Care Pulley Maintainer Name Role Phone Dennis Doran MD Primary Care Provider [phone] Joann Marquez-BC Unavailable [phone] Encounter Details Date Type Department Care Team (Late st Contact Info) Description 07/09/2002 Abstract [facility] CONVERSION [address] [place] [address] , Generic Conversion, Social History Tobacco Use [...] on filedocumented in this encounter Care Teams Pulley Maintainer Relationship Specialty Start Date End Date Dennis Doran MD PCP - General INTERNAL MEDICINE 02/28/17 10/23/23 Joann Marquez ANP-BC [address] [place] [address] [address] [place] [address] [place] Clerical Assistant NURSE PRACTITIONER 02/28/17 documented as of this encounter
--- OUTSIDE RECORDS SUMMARY | 2024-10-26 23:08 | XMS_ITS | Encounter Summary ---
Author Organization [facility] Address [facility]6 [facility]. [place], [place] [address] [place] [address] Care Team Providers Care Engraver Wood Name Role Phone Dennis Doran MD Primary Care Provider [phone] Joann Marquez-BC Unavailable [phone] Encounter Details Date Type Department Care Team (Late st Contact Info) Description 05/06/2002 Abstract [facility] CONVERSION [address] [place] [address] , Generic Conversion, Social History Tobacco Use [...] on filedocumented in this encounter Care Teams Engraver Wood Relationship Specialty Start Date End Date Dennis Doran MD PCP - General INTERNAL MEDICINE 02/28/17 10/23/23 Joann Marquez ANP-BC [address] [place] [address] 4[address] [place] [address] [place] Workforce Management Consultant NURSE PRACTITIONER 02/28/17 documented as of this encounter
--- OUTSIDE RECORDS SUMMARY | 2024-10-26 23:08 | XMS_ITS | Encounter Summary ---
Author Organization [facility] Address [facility]6 [facility] [place], [place] [address] [place] [address] Care Team Providers Care Bale Opener Name Role Phone Dennis Doran MD Primary Care Provider [phone] Joann Marquez-BC Unavailable [phone] Encounter Details Date Type Department Care Team (Late st Contact Info) Description 05/28/2003 Abstract [facility] CONVERSION [address] [place] [address] , Generic Conversion, Social History Tobacco Use [...] on filedocumented in this encounter Care Teams Bale Opener Relationship Specialty Start Date End Date Dennis Doran MD PCP - General INTERNAL MEDICINE 02/28/17 10/23/23 Joann Marquez ANP-BC [address] [place] [address] 4[address] [place] [address] [place] Swimming Pool Maintenance NURSE PRACTITIONER 02/28/17 documented as of this encounter
--- OUTSIDE RECORDS SUMMARY | 2024-10-26 23:08 | XMS_ITS | Encounter Summary ---
Author Organization [facility] Address [facility]6 [facility]. [place], [place] [address] [place] [address] Care Team Providers Care Teletype Clerk Name Role Phone Dennis Doran MD Primary Care Provider [phone] Joann Marquez-BC Unavailable [phone] Encounter Details Date Type Department Care Team (Late st Contact Info) Description 10/10/1994 Abstract [facility] CONVERSION [address] [place] [address] , Generic Conversion, Social History Tobacco Use [...] on filedocumented in this encounter Care Teams Teletype Clerk Relationship Specialty Start Date End Date Dennis Doran MD PCP - General INTERNAL MEDICINE 02/28/17 10/23/23 Joann Marquez ANP-BC [address] [place] [address] 4[address] [place] [address] Iva Petroleum Analyst NURSE PRACTITIONER 02/28/17 documented as of this encounter
--- OUTSIDE RECORDS SUMMARY | 2024-10-26 23:08 | XMS_ITS | Encounter Summary ---
Author Organization [facility] Address [facility] [place], [place] [address] [place] [address] Care Team Providers Care Coastal/Harbor Defense Officer Name Role Phone Dennis Doran MD Primary Care Provider [phone] Joann Marquez-BC Unavailable [phone] Encounter Details Date Type Department Care Team (Late st Contact Info) Description 06/30/2000 Abstract [facility] CONVERSION [address] [place] [address] , Generic Conversion, Social History Tobacco Use [...] on filedocumented in this encounter Care Teams Coastal/Harbor Defense Officer Relationship Specialty Start Date End Date Dennis Doran MD PCP - General INTERNAL MEDICINE 02/28/17 10/23/23 Joann Marquez ANP-BC [address] [place] [address] [address] [place] [address] [place] Billet Assembler NURSE PRACTITIONER 02/28/17 documented as of this encounter
--- OUTSIDE RECORDS SUMMARY | 2024-10-26 23:08 | XMS_ITS | Encounter Summary ---
Author Organization [facility] Address [facility] [place], [place] [address] [place] [address] Care Team Providers Care Painter Rough Name Role Phone Dennis Doran MD Primary Care Provider [phone] Joann Marquez-BC Unavailable [phone] Encounter Details Date Type Department Care Team (Late st Contact Info) Description 01/08/2002 Abstract [facility] CONVERSION [address] [place] [address] , Generic Conversion, Social History Tobacco Use [...] on filedocumented in this encounter Care Teams Painter Rough Relationship Specialty Start Date End Date Dennis Doran MD PCP - General INTERNAL MEDICINE 02/28/17 10/23/23 Joann Marquez ANP-BC [address] [place] [address] 4[address] [place] [address] [place] Formula Weigher NURSE PRACTITIONER 02/28/17 documented as of this encounter
--- OUTSIDE RECORDS SUMMARY | 2024-10-26 23:08 | XMS_ITS | Encounter Summary ---
Author Organization [facility] Address [facility]6 [facility]. [place], [place] [address] [place] [address] Care Team Providers Care Chair Car Attendant Name Role Phone Dennis Doran MD Primary Care Provider [phone] Joann Marquez-BC Unavailable [phone] Encounter Details Date Type Department Care Team (Late st Contact Info) Description 03/07/2000 Abstract [facility] CONVERSION [address] [place] [address] , Generic Conversion, Social History Tobacco Use [...] on filedocumented in this encounter Care Teams Chair Car Attendant Relationship Specialty Start Date End Date Dennis Doran MD PCP - General INTERNAL MEDICINE 02/28/17 10/23/23 Joann Marquez ANP-BC [address] [place] [address] [address] [place] [address] [place] Cabinetmaker Helper NURSE PRACTITIONER 02/28/17 documented as of this encounter
--- OUTSIDE RECORDS SUMMARY | 2024-10-26 23:08 | XMS_ITS | Encounter Summary ---
Author Organization [facility] Address [facility]6 [facility]. [place], [place] [address] [place] [address] Care Team Providers Care Chemical Worker Name Role Phone Dennis Doran MD Primary Care Provider [phone] Joann Marquez-BC Unavailable [phone] Encounter Details Date Type Department Care Team (Late st Contact Info) Description 07/06/1995 Abstract [facility] CONVERSION [address] [place] [address] , Generic Conversion, Social History Tobacco Use [...] filedocumented in this encounter Care Teams Chemical Worker Relationship Specialty Start Date End Date Dennis Doran MD PCP - General INTERNAL MEDICINE 02/28/17 10/23/23 Joann Marquez ANP-BC [address] [place] [address] 4[address] [place] [address] [place] Bagger And Stock Handler Helper NURSE PRACTITIONER 02/28/17 documented as of this encounter
--- OUTSIDE RECORDS SUMMARY | 2024-10-26 23:08 | XMS_ITS | Encounter Summary ---
Author Organization [facility] Address [facility]6 [facility]. [place], [place] [address] [place] [address] Care Team Providers Care Clothing Cutter Name Role Phone Dennis Doran MD Primary Care Provider [phone] Joann Marquez-BC Unavailable [phone] Encounter Details Date Type Department Care Team (Late st Contact Info) Description 09/03/1994 Abstract [facility] CONVERSION [address] [place] [address] , Generic Conversion, Social History Tobacco Use [...] on filedocumented in this encounter Care Teams Clothing Cutter Relationship Specialty Start Date End Date Dennis Doran MD PCP - General INTERNAL MEDICINE 02/28/17 10/23/23 Joann Marquez ANP-BC [address] [place] [address] 4[address] [place] [address] [place] Senior Net Application Developer NURSE PRACTITIONER 02/28/17 documented as of this encounter
--- OUTSIDE RECORDS SUMMARY | 2024-10-26 23:08 | XMS_ITS | Encounter Summary ---
Author Organization [facility] Address [facility]6 [facility]. [place], [place] [address] [place] [address] Care Team Providers Care Dry Drug Worker Name Role Phone Dennis Doran MD Primary Care Provider [phone] Joann Marquez-BC Unavailable [phone] Encounter Details Date Type Department Care Team (Late st Contact Info) Description 06/12/2001 Abstract [facility] CONVERSION [address] [place] [address] , Generic Conversion, Social History Tobacco Use [...] on filedocumented in this encounter Care Teams Dry Drug Worker Relationship Specialty Start Date End Date Dennis Doran MD PCP - General INTERNAL MEDICINE 02/28/17 10/23/23 Joann Marquez ANP-BC [address] [place] [address] 4[address] [place] [address] [place] Phd Internship NURSE PRACTITIONER 02/28/17 documented as of this encounter
--- OUTSIDE RECORDS SUMMARY | 2024-10-26 23:08 | XMS_ITS | Encounter Summary ---
Author Organization [facility] Address [facility]6 [facility]. [place], [place] [address] [place] [address] Care Team Providers Care Experimental Rocket Sled Mechanic Name Role Phone Dennis Doran MD Primary Care Provider [phone] Joann Marquez-BC Unavailable [phone] Encounter Details Date Type Department Care Team (Late st Contact Info) Description 05/18/2003 Abstract [facility] CONVERSION [address] [place] [address] , Generic Conversion, Social History Tobacco Use [...] on filedocumented in this encounter Care Teams Experimental Rocket Sled Mechanic Relationship Specialty Start Date End Date Dennis Doran MD PCP - General INTERNAL MEDICINE 02/28/17 10/23/23 Joann Marquez ANP-BC [address] [place] [address] 4[address] [place] [address] [place] Lace Cutter NURSE PRACTITIONER 02/28/17 documented as of this encounter
--- OUTSIDE RECORDS SUMMARY | 2024-10-26 23:08 | XMS_ITS | Encounter Summary ---
Author Organization [facility] Address [facility]6 [facility] [place], [place] [address] [place] [address] Care Team Providers Care Respiratory Care Instructor Name Role Phone Dennis Doran MD Primary Care Provider [phone] Joann Marquez-BC Unavailable [phone] Encounter Details Date Type Department Care Team (Late st Contact Info) Description 09/30/2001 Abstract [facility] CONVERSION [address] [place] [address] , Generic Conversion, Social History Tobacco Use [...] on filedocumented in this encounter Care Teams Respiratory Care Instructor Relationship Specialty Start Date End Date Dennis Doran MD PCP - General INTERNAL MEDICINE 02/28/17 10/23/23 Joann Marquez ANP-BC [address] [place] [address] 4[address] [place] [address] [place] Lockstitch Machine Operator NURSE PRACTITIONER 02/28/17 documented as of this encounter
--- OUTSIDE RECORDS SUMMARY | 2024-10-26 23:08 | XMS_ITS | Encounter Summary ---
Author Organization [facility] Address [facility]. [place], [place] [address] [place] [address] Care Team Providers Care Process Equipment Operator Name Role Phone Dennis Doran MD Primary Care Provider [phone] Joann Marquez-BC Unavailable [phone] Encounter Details Date Type Department Care Team (Late st Contact Info) Description 09/28/2001 Abstract [facility] CONVERSION [address] [place] [address] , Generic Conversion, Social History Tobacco Use [...] filedocumented in this encounter Care Teams Process Equipment Operator Relationship Specialty Start Date End Date Dennis Doran MD PCP - General INTERNAL MEDICINE 02/28/17 10/23/23 Joann Marquez ANP-BC [address] [place] [place] [address] 4[address] [place] [address] [place] Hand Candy Dipper NURSE PRACTITIONER 02/28/17 documented as of this encounter
--- OUTSIDE RECORDS SUMMARY | 2024-10-26 23:08 | XMS_ITS | Encounter Summary ---
Author Organization [facility] Address [facility]6 [facility]. [place], [place] [address] [place] [address] Care Team Providers Care Warehouse Specialist Name Role Phone Dennis Doran MD Primary Care Provider [phone] Joann Marquez-BC Unavailable [phone] Encounter Details Date Type Department Care Team (Late st Contact Info) Description 05/25/1995 Abstract [facility] CONVERSION [address] [place] [address] , Generic Conversion, Social History Tobacco Use [...] filedocumented in this encounter Care Teams Warehouse Specialist Relationship Specialty Start Date End Date Dennis Doran MD PCP - General INTERNAL MEDICINE 02/28/17 10/23/23 Joann Marquez ANP-BC [address] [place] [address] 4[address] [place] [address] [place] Janitor NURSE PRACTITIONER 02/28/17 documented as of this encounter
--- OUTSIDE RECORDS SUMMARY | 2024-10-26 23:08 | XMS_ITS | Encounter Summary ---
Author Organization [facility] Address [facility]6 [facility]. [place], [place] [address] [place] [address] Care Team Providers Care Escapement Maker Name Role Phone Dennis Doran MD Primary Care Provider [phone] Joann Marquez-BC Unavailable [phone] Encounter Details Date Type Department Care Team (Late st Contact Info) Description 08/31/1994 Abstract [facility] CONVERSION [address] [place] [address] , Generic Conversion, Social History Tobacco Use [...] on filedocumented in this encounter Care Teams Escapement Maker Relationship Specialty Start Date End Date Dennis Doran MD PCP - General INTERNAL MEDICINE 02/28/17 10/23/23 Joann Marquez ANP-BC [address] [place] [address] 4[address]57 [place] [address] [place] Dance Professor NURSE PRACTITIONER 02/28/17 documented as of this encounter
--- OUTSIDE RECORDS SUMMARY | 2024-10-26 23:08 | XMS_ITS | Encounter Summary ---
Author Organization [facility] Address [facility] [facility]. [place], [place] [address] [place] [address] Care Team Providers Care Hoister Name Role Phone Dennis Doran MD Primary Care Provider [phone] Joann Marquez-BC Unavailable [phone] Encounter Details Date Type Department Care Team (Late st Contact Info) Description 06/15/2003 Abstract [facility] CONVERSION [address] [place] [address] , Generic Conversion, Social History Tobacco Use [...] on filedocumented in this encounter Care Teams Hoister Relationship Specialty Start Date End Date Dennis Doran MD PCP - General INTERNAL MEDICINE 02/28/17 10/23/23 Joann Marquez ANP-BC [address] [place] [address] 4[address]57 [place] [address] [place] Operations Administrative Assistant NURSE PRACTITIONER 02/28/17 documented as of this encounter
--- OUTSIDE RECORDS SUMMARY | 2024-10-26 23:08 | XMS_ITS | Encounter Summary ---
Author Organization [facility] Address [facility]6 [facility]. [place], [place] [address] [place] [address] Care Team Providers Care Spotter Name Role Phone Dennis Doran MD Primary Care Provider [phone] Joann Marquez-BC Unavailable [phone] Encounter Details Date Type Department Care Team (Late st Contact Info) Description 12/29/[address] [facility] CONVERSION [address] [place] [address] , Generic Conversion, Social History Tobacco Use [...] on filedocumented in this encounter Care Teams Spotter Relationship Specialty Start Date End Date Dennis Doran MD PCP - General INTERNAL MEDICINE 02/28/17 10/23/23 Joann Marquez ANP-BC [address] [place] [address] 4[address]57 [place] [address] W[place] Business Broker NURSE PRACTITIONER 02/28/17 documented as of this encounter
--- OUTSIDE RECORDS SUMMARY | 2024-10-26 23:08 | XMS_ITS | Encounter Summary ---
Author Organization [facility] Address [facility]6 [facility] [place], [place] [address] [place] [address] Care Team Providers Care Informaticist Name Role Phone Dennis Doran MD Primary Care Provider [phone] Joann Marquez-BC Unavailable [phone] Encounter Details Date Type Department Care Team (Late st Contact Info) Description 01/01/1995 Abstract [facility] CONVERSION [address] [place] [address] , Generic Conversion, Social History Tobacco Use [...] on filedocumented in this encounter Care Teams Informaticist Relationship Specialty Start Date End Date Dennis Doran MD PCP - General INTERNAL MEDICINE 02/28/17 10/23/23 Joann Marquez ANP-BC [address] [place] [address] 4[address] [place] [address] [place] Chef Saucier NURSE PRACTITIONER 02/28/17 documented as of this encounter
--- OUTSIDE RECORDS SUMMARY | 2024-10-26 23:08 | XMS_ITS | Encounter Summary ---
Author Organization [facility] Address [facility]6 [facility]. [place], [place] [address] [place] [address] Care Team Providers Care Diabetic Educator Name Role Phone Dennis Doran MD Primary Care Provider [phone] Joann Marquez-BC Unavailable [phone] Encounter Details Date Type Department Care Team (Late st Contact Info) Description 06/18/2003 Abstract [facility] CONVERSION [address] [place] [address] , Generic Conversion, Social History Tobacco Use [...] on filedocumented in this encounter Care Teams Diabetic Educator Relationship Specialty Start Date End Date Dennis Doran MD PCP - General INTERNAL MEDICINE 02/28/17 10/23/23 Joann Marquez ANP-BC [address] [place] [address] 4[address] [place] [address] [place] Bottle Blowing Machine Tender NURSE PRACTITIONER 02/28/17 documented as of this encounter
--- OUTSIDE RECORDS SUMMARY | 2024-10-26 23:20 | XMS_ITS | Encounter Summary ---
Author Organization [facility] Address [address] [place] [address] Care Team Providers Care Synthetic Staple Extruder Name Role Phone Dennis Doran MD Primary Care Provider [phone] Reason for Visit * Reason Comments Other infertility * Eval and Treat (Routine) - Closed Specialty Diagnoses / Procedures Referred By Contac t Referred To Contact Urology Diagnoses DR Dias referred from [facility], pt does not ejactulate, trying to get , no testing has been done, coventry ins thru pts work/union Procedures OFFICE VISIT NEW PATIENT Dennis Doran MD [address] [facility] [address] [place] [address] Freddy Hughes MD [address] [facility] [place] [facility] [address] [place] [address] Referral ID Status Reason Start Date Expiration Date Visits Re quested Visits Authorized [id number] Closed 09/21/2015 09/21/2015 1 1 Encounter Details Date Type Department Care Team (Late st Contact Info) Description 09/21/2015 2:20 PM ARMORED TRANSPORT SERVICE MANAGER Office Visit [facility] [place] [address] [facility] [address] [place] [id number] Freddy Hughes MD [address] [facility] [address] [place] [address] Other ejaculatory dysfunction (Primary Dx); [...] Comments Blood Pressure 120/70 09/21/2015 2:37 PM ARMORED TRANSPORT SERVICE MANAGER Pulse - - Temperature - - Respiratory Rate - - Oxygen Saturation - - Inhaled Oxygen Concentration - - Weight 86.2 kg (190 lb) 09/21/2015 2:37 PM ARMORED TRANSPORT SERVICE MANAGER Height 180.3 cm (5' 11 ) 09/21/2015 2:37 PM ARMORED TRANSPORT SERVICE MANAGER Body Mass Index 26.5 09/21/2015 2:37 PM ARMORED TRANSPORT SERVICE MANAGER documented in this encounter Progress Notes [...] one child. They have been seen at [facility] and are considering options including IVF [...] anticoagulation. He is going to see his salvage repairer this week as he may need angioplasty and stenting again. He will call me next week. We discussed his fertility issues as well. We discussed options including testicular biopsy if theydo proceed with IVF. 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
--- OUTSIDE RECORDS SUMMARY | 2024-10-26 23:20 | XMS_ITS | Clinical Summary ---
Author Organization [facility] Address [address] [place] [address] Phone Care Team Providers Care Cruller Maker Machine Name Role Phone Dennis Doran MD Primary Care Provider [phone] Allergies No known active allergies Medications Medication [...] Comments Blood Pressure 120/70 09/21/2015 2:37 PM AUTOMOBILE OR TRUCK RENTAL DISPATCHER Pulse - - Temperature - - Respiratory Rate - - Oxygen Saturation - - Inhaled Oxygen Concentration - - Weight 86.2 kg (190 lb) 09/21/2015 2:37 PM AUTOMOBILE OR TRUCK RENTAL DISPATCHER Height 180.3 cm (5' 11 ) 09/21/2015 2:37 PM AUTOMOBILE OR TRUCK RENTAL DISPATCHER Body Mass Index 26.5 09/21/2015 2:37 PM AUTOMOBILE OR TRUCK RENTAL DISPATCHER Plan of Treatment Health Maintenance Due Date [...] age to complete this topic Care Teams Cruller Maker Machine Relationship Specialty Start Date End Date Dennis Doran MD [address] [place] [phone] PCP - General Internal Medicine 09/21/15
== END 2024-10-24 15:20 | disposition home or self-care (01) | DRG 193 ==
LOC: ANHED 15:45 → ANH2MED 18:22 → ANH3MEDSUR 18:22
PROVIDERS: Internal Medicine Nephrology; Nurse Practitioner Gerontology; Student in an Organized Health Care Education/Training Program; Admitting Provider Internal Medicine; Emergency Provider Emergency Medicine; PCP Physician Assistant Medical; Visit Provider Nurse Practitioner Family
DX: J10.00 Influenza due to other identified influenza virus with unspecified type of pneumonia (principal); J96.01 Acute respiratory failure with hypoxia; N17.9 Acute kidney failure, unspecified; E87.20 Acidosis, unspecified; N18.4 Chronic kidney disease, stage 4 (severe); I13.0 Hypertensive heart and chronic kidney disease with heart failure and stage 1 through stage 4 chronic kidney disease, or unspecified chronic kidney disease; I50.9 Heart failure, unspecified; I25.10 Atherosclerotic heart disease of native coronary artery without angina pectoris; E10.22 Type 1 diabetes mellitus with diabetic chronic kidney disease; E10.42 Type 1 diabetes mellitus with diabetic polyneuropathy; E03.9 Hypothyroidism, unspecified; E55.9 Vitamin D deficiency, unspecified; E21.3 Hyperparathyroidism, unspecified; E78.5 Hyperlipidemia, unspecified; J44.9 Chronic obstructive pulmonary disease, unspecified; G25.81 Restless legs syndrome; R53.82 Chronic fatigue, unspecified; F41.9 Anxiety disorder, unspecified; Z20.822 Contact with and (suspected) exposure to COVID-19; Z96.41 Presence of insulin pump (external) (internal); I25.2 Old myocardial infarction; Z95.5 Presence of coronary angioplasty implant and graft; Z79.4 Long term (current) use of insulin; Z79.02 Long term (current) use of antithrombotics/antiplatelets; Z85.820 Personal history of malignant melanoma of skin; Z87.891 Personal history of nicotine dependence
CPT/HCPCS: 36415; 36600; 71046; 80048; 80053; 81001; 81050; 82550; 82570; 82805; 82948; 83605; 83690; 83735; 83880; 84100; 84156; 84300; 84443; 84484; 84540; 85018; 85025; 85055; 85380; 85610; 85730; 85999; 87040; 87637; 93005; 93306; 94618; 94640; 96361; 96365; 96366; 96375; 96376; 99285; A9270; G0378; J0456; J0696; J3475; J7030; J7070; J7120; Q5105

== ENCOUNTER 2024-11-20 01:34 | Day surgery (SDC) | payer OTHER, SELFPAY ==
[2024-11-12 12:24] VITALS: BMI 27.3
--- NOTE | 2024-11-12 12:30 | PC.NURSE ---
Report to the Outpatient Waiting Room, entrance under the green pavilion located off [facility], at time _0815_ on date _[id number]_. Planned Procedure Time: _1015_.? Time changes happen often and if your time is changed the preop area will call you the afternoon before. - You and your visitor will be asked to self-screen and do not enter if you have any COVID symptoms. Please call surgeon if you need to reschedule. - A mask is optional within the hospital at this time. Patients may have clear liquids (water, carbonated beverages, clear teas, apple juice) until 3 hours prior to surgery with a maximum of 20 ounces. - No food from midnight until time of surgery and no smoking. This includes no chewing gum, candy or mints. Take only the following medications with a SIP of water on the morning of surgery: ___Carvidilol, Levothyroxine, Amlodipine, Pregabalin, Isosorbide, Venlafaxine and if needed may use Alprazolam. Continue Insulin pump and glucose monitor. DO NOT STOP ANY OF YOUR OTHER PRESCRIPTION MEDICATIONS PRIOR TO SURGERY EXCEPT THE FOLLOWING Medications to discontinue per physician ___Patient is meeting with his Warp Starter sunday to discuss Clopedigrel as to when to hold. Date to take last dose Please no make-up, nail kinyarwanda, hairspray, perfume, deodorant, or body powder the day of surgery.? No jewelry (including any body piercings) or valuables the day of surgery, leave them at home.? Please take a shower or bath the night before, or the morning of, surgery with an antibacterial soap.? Wear comfortable, loose fitting clothing.? - Jewelry must be removed prior to entering the operating room.? Rings and piercings that are not removed may be cut off. - The hospital will not accept responsibility for valuables.? - Please leave all valuables, including medications, at home the day of surgery. If you are going home after surgery, a licensed funeral limousine driver must drive you home.? - NO public transportation without another adult if you receive anesthesia. - We recommend that an adult stay with you for 24 hours following discharge. - We also recommend that you do not drive, make important decision, drink alcoholic beverages, or take any drugs that were not prescribed by your health care provider for at least 24 hours after your discharge time. Follow any additional instructions given to you from your surgeon. Telephone instructions given to __Simeone___and asked if any additional questions and then verbalized understanding. Patient advised to call surgeon office or pre surgery nurse liaison [phone] if any additional questions.
[2024-11-20] VITALS (8 sets, daily range): BP systolic 115–134; BP diastolic 66–89; PULSE 57–70; RESP 12–16; TEMP 36.3–37; O2SAT 90–97
--- OUTSIDE RECORDS SUMMARY | 2024-11-20 01:37 | XMS_ITS | Encounter Summary ---
Author Organization [facility] Address [address] [place] [address]. [place] [address] [place] [address] Care Team Providers Care Wire Splicer Name Role Phone Dennis Doran MD Primary Care Provider [phone] Joann Marquez-BC Unavailable Denisha Hansen Primary Care Provider [phone] Encounter Details Date Type Department Care Team (Late Contact Info) Description 05/04/2017 Abstract [facility] [address] [place] [address] Joann Marquez ANP-BC [address] 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 Not on file Not on file Not on file Not on file Not on file Not on file Not on file documented as of this encounter Plan of Treatment Upcoming Encounters Date Type Department Care Team (Late Contact Info) Description 02/24/2025 1:30 PM CDT Office Visit [facility] [address] [place] [address] Joann Marquez ANP-BC [address] [address] documented as of this encounter Procedures Procedure Name Priority Date/Time Associated Diagnosis Comments CBC (OUTSIDE LAB) Routine 02/25/2016 documented in this encounter Results * CBC (OUTSIDE LAB) (02/25/2016) WBC 15.2 HGB 13.3 HCT 41.4 PLT 171 RBC 4.56 02/25/2016 us Dennis Doran MD LAB-OUTSIDE/ABSTRACTED Final R esult documented in this encounter Visit Diagnoses Not on filedocumented in this encounter Additional Health Concerns Infection Onset Date Last Indicated Resolved Time COVID-19 Rule Out 01/06/2022 01/06/2022 01/07/2022 2:32 PM CDT documented as of this encounter Care Teams Wire Splicer Relationship Specialty Start Date End Date Dennis Doran MD PCP - General INTERNAL MEDICINE 02/28/17 10/23/23 Denisha Hansen PA [address] [place] [address] PCP - General PHYSICIAN FINANCIAL SUPERVISOR 10/24/23 Joann Marquez, AURELIANO-BC [id number] [place] [address] Newton Track Grinder NURSE PRACTITIONER 02/28/17 documented as of this encounter
--- OUTSIDE RECORDS SUMMARY | 2024-11-20 01:38 | XMS_ITS | Encounter Summary ---
Author Organization [facility] Address [address] [place] [address]. [place], [place] [address] [place] [address] Care Team Providers Care Coupon Redemption Clerk Name Role Phone Dennis Doran MD Primary Care Provider [phone] Joann Marquez ANP- Unavailable Denisha Hansen Primary Care Provider [phone] Encounter Details Date Type Department Care Team (Late st Contact Info) Description 11/18/2021 Abstract [facility] [address] [place] [phone] Abstract, Doc [facility] Social History Tobacco Use Types Packs/Day Years Used Date Smoking Tobacco: Every Day Cigarettes Smokeless Tobacco: Never Alcohol Use Standard Drinks/Week Comments Yes 0 (1 standard drink = 0.6 oz pur e alcohol) 4-6 weekly Sex and Gender Information Value Date Recorded Sex Assigned at Male 11/14/2024 8:21 AM MATERIALS COORDINATOR Legal Sex Male 1:10 AM CDT Gender Identity Not on file Sexual Orientation Not on file 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 Yes 11/07/2021 3:01 PM MATERIALS COORDINATOR documented as of this encounter Plan of Treatment Upcoming Encounters Date Type Department Care Team (Late Contact Info) Description 02/24/2025 1:30 PM CDT Office Visit [facility] el[facility] [address] [place] [phone] Joann Marquez, ANP-BC [address] [facility] [address] [place] [address] documented as of this encounter Procedures Procedure Name Priority Date/Time Associated Diagnosis Comments D-DIMER, QUANTITATIVE Routine 10/17/2021 TROPONIN WHOLE BLOOD Routine 09/20/2021 COMPREHENSIVE METABOLIC PANEL Routine 09/20/2021 CBC W/DIFF AUTOMATED Routine 09/20/2021 documented in this encounter Results * D-DIMER, QUANTITATIVE (10/17/2021) Pathologist [facility] D-DIMER 0.47 10/17/2021 us Doc [facility] Abstract LABORATORY Final Result * TROPONIN WHOLE BLOOD (09/20/2021) Pathologist [facility] TROPONIN T 8 <23 09/20/2021 us Doc [facility] Abstract LABORATORY Final Result * CBC W/DIFF AUTOMATED (09/20/2021) Pathologist [facility] WBC 7.8 RBC 4.45 HGB 13.4 HCT 40.4 MCV 90.8 MCH 30.1 MCHC 33.2 RDW 13.8 PLT 214 NEUTROPHILS % 70.6 LYMPHOCYTES % 17.1 MONOCYTES % 5.6 EOSINOPHILS % 5.4 BASOPHILS % 1.3 ABS. NEUTROPHILS 5,507 ABS. LYMPHOCYTES 1,334 ABS. MONOCYTES 437 ABS. BASOPHILS 101 09/20/2021 us Doc [facility] Abstract LABORATORY Final Result * (ABNORMAL) COMPREHENSIVE METABOLIC PANEL (09/20/2021) SODIUM S/P/B 138 POTASSIUM S/P/B 4.2 CO2 [...] documented as of this encounter Care Teams Coupon Redemption Clerk Relationship Specialty Start Date End Date Dennis Doran MD PCP - General INTERNAL MEDICINE 02/28/17 10/23/23 Denisha Hansen PA [address] [place] [address] PCP - General PHYSICIAN LINEN SORTER 10/24/23 Joann Marquez, ANP- [address] [place] [address] [address] [place] [address] Adger Wire Rigger NURSE PRACTITIONER 02/28/17 documented as of this encounter
--- OUTSIDE RECORDS SUMMARY | 2024-11-20 01:38 | XMS_ITS | Encounter Summary ---
Author Organization [facility] Address [facility] [place] [address] [place] [address] Care Team Providers Care Bulk Filler Name Role Phone Dennis Doran MD Primary Care Provider Joann Marquez-ERICA Unavailable [phone] Denisha Hansen Primary Care Provider [phone] Encounter Details Date Type Department Care Team (Late Contact Info) Description 09/09/2015 Abstract [facility] [address] [place] [address] Joann Marquez ANP-BC [address] [facility] [address] [place] [phone] Social History Tobacco Use Types Packs/Day Years Used Date Smoking Tobacco: Every Day Cigarettes Alcohol Use Standard Drinks/Week Comments Yes 0 (1 standard drink = 0.6 oz pur e alcohol) 8 beers (64) a month. 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 Contact Info) Description 02/24/2025 1:30 PM CDT Office Visit [facility] [address] [place] [address] Joann Marquez, ANP-BC [address] [facility] [address] [place] [phone] documented as of this encounter Visit Diagnoses Not on filedocumented in this encounter Additional Health Concerns Infection Onset Date Last Indicated Resolved Time COVID-19 Rule Out 01/06/2022 01/06/2022 01/07/2022 2:32 PM CDT documented as of this encounter Care Teams Bulk Filler Relationship Specialty Start Date End Date Dennis Doran MD PCP - General INTERNAL MEDICINE 02/28/17 10/23/23 Denisha Hansen PA [address] [place] [address] PCP - General PHYSICIAN SHEET METAL DUCT INSTALLER APPRENTICE 10/24/23 Joann Marquez, ANP-BC [address] [facility] [address] [place] [address] [place] Steep Tender NURSE PRACTITIONER 02/28/17 documented as of this encounter
--- OUTSIDE RECORDS SUMMARY | 2024-11-20 01:38 | XMS_ITS | Encounter Summary ---
Author Organization [facility] Address [address] [place] [address]. [place] [address] [place] [address] Care Team Providers Care Marketing Instructor Name Role Phone Dennis Doran MD Primary Care Provider [phone] Joann Marquez-BC Unavailable Denisha Hansen Primary Care Provider [phone] Encounter Details Date Type Department Care Team (Late Contact Info) Description 05/04/2017 Abstract [facility] [address] [place] [address] Joann Marquez ANP-BC [address] [facility] [address] [place] [address] Social History Tobacco Use Types Packs/Day Years Used Date Smoking Tobacco: Every Day Cigarettes Smokeless Tobacco: Never Alcohol Use Standard Drinks/Week Comments Yes 0 (1 standard drink = 0.6 oz pur e alcohol) 4-6 weekly Sex and Gender Information Value Date Recorded Sex Assigned at Male 11/14/2024 8:21 AM BRAKE RIDER Legal Sex Male 1:10 AM CDT Gender Identity Not on file Sexual Orientation Not on file 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 Not on file Not on file Not on file Not on file Not on file Not on file documented as of this encounter Plan of Treatment Upcoming Encounters Date Type Department Care Team (Late Contact Info) Description 02/24/2025 1:30 PM CDT Office Visit [facility] el[facility] [address] [place] [phone] Joann Marquez, ANP-BC [address] [facility] [address] [place] [phone] documented as of this encounter Procedures Procedure [...] documented as of this encounter Care Teams Marketing Instructor Relationship Specialty Start Date End Date Dennis Doran MD PCP - General INTERNAL MEDICINE 02/28/17 10/23/23 Denisha Hansen PA [address] [place] [address] PCP - General PHYSICIAN ANALYTICAL DATA MINER 10/24/23 Joann Marquez, ANP- [address] [facility] [address] [place] [address] [place] Carpenter NURSE PRACTITIONER 02/28/17 documented as of this encounter
--- OUTSIDE RECORDS SUMMARY | 2024-11-20 01:38 | XMS_ITS | Clinical Summary ---
Author Organization [facility] Address [address] [place] [address]. [place], [place] [address] [place] [address] Care Team Providers Care Solar Business Developer Name Role Phone Jimmy Joann Wagner [facility]- Unavailable [phone] Denisha Hansen Primary Care Provider [phone] Allergies Active Allergy Reactions Criticality Noted Date [...] (two) times daily. 180 tablet 1 06/04/20 Active clopidogrel (PLAVIX) 75 MG tablet Take 1 tablet (75 mg total) by mouth daily. 90 tablet 1 06/04/20 Active isosorbide mononitrate ER (IMDUR) 60 MG 24 hr tablet Take 1 tablet (60 mg total) by mouth every morning. 90 tablet 1 06/04/20 Active nitroglycerin (NITROSTAT) 0.[address] 1 tablet (0.4 mg total) under the tongue every 5 (five) minutes as needed for Chest Pain. Maximum of 3 doses. 30 tablet 1 06/04/20 Active lisinopril (PRINIVIL) 2.5 MG tablet Take 1 tablet (2.5 mg total) by mouth daily. 10/06/20 Active evolocumab (REPATHA SURECLICK) 140 MG/ML injection (PEN) Inject 1 mL (140 mg total) into the skin every 14 (fourteen) days. 2 Pen 5 06/11/20 24 025 Discontinu ed(Discont inued by another clinician) Active Problems Problem Noted Date Diagnosed Date Chronic heart failure with p reserved ejection fraction (HFpEF) ([facility]) 11/16/2024 Tobacco use 12/24/2019 Chest pain 05/21/2018 CVA (cerebral vascular accident) ([facility]/ C) 10/22/2009 Coronary artery disease of n ative artery of [place] heart with stable angina pectoris Diabetic retinopathy ([facility]) Hyperlipidemia Hypertension Encounters Date Type Department Care Team Description 11/18/2024 [facility]phone [facility] [address] [place] [address] Joann Marquez, ANP-BC Other 11/14/2024 9:41 AM COTTON JAMMER - 11/14/2024 11:59 PM COTTON JAMMER Hospital Encounter [facility] [address] [place] [address] Joann Marquez, ANP-BC Discharge Disposition: Home or Self Care (Routine Discharge) 11/14/2024 8:30 AM COTTON JAMMER [facility] [address] [place] [address] Joann Marquez ANP-BC Pre-Op Exam 11/14/2024 Travel 11/04/2024 Telephone [facility] [address] [place] [address] Joann Marquez ANP-BC Appointment Request from Last 3 Months Family History Medical History Relation Comments Diabetes Mother Heart Attack Mother Heart Disease Mother Hypertension Mother Stent Cardiac Mother stents Coronary artery disease Other Valve Disease Sister Valve problem Relation Status Comments Brother Alive Father Alive Mother Alive Other Other Family history i s positive for: Sister Alive Social History Tobacco Use Types Packs/Day Years Used Date Smoking Tobacco: Every Day Cigarettes 0.5 30 Smokeless Tobacco: Never Tobacco Cessation:Ready to Q uit: Not Asked; Counseling Given: Not Answered Alcohol Use Standard Drinks/Week Comments Yes 10 (1 standard drink = 0.6 oz pu re alcohol) 4-6 weekly Sex and Gender Information Value Date Recorded Sex Assigned at Male 11/14/2024 8:21 AM COTTON JAMMER Legal Sex Male 1:10 AM CDT Gender Identity Not on file Sexual Orientation Not on file 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 Not on file Not on file Not on file Not on file Not on file Not on file Not on file Last Filed Vital Signs Vital Sign Reading Time Taken Comments Blood Pressure 130/62 11/14/2024 8:35 AM COTTON JAMMER Pulse 71 11/14/2024 8:35 AM COTTON JAMMER Temperature 35.6 ??C (96.1 ??F) 01/09/2022 7:24 AM CD T Respiratory Rate 16 11/14/2024 8:35 AM COTTON JAMMER Oxygen Saturation 92% 11/14/2024 8:35 AM COTTON JAMMER Inhaled Oxygen Concentration - - Weight 88.9 kg (196 lb) 11/14/2024 8:35 AM COTTON JAMMER Height 180.3 cm (5' 11 ) 11/14/2024 8:35 AM COTTON JAMMER Body Mass Index 27.34 11/14/2024 8:35 AM COTTON JAMMER Plan of Treatment Upcoming Encounters Date Type Department Care Team (Late st Contact Info) Description 02/24/2025 1:30 PM CDT [facility] Visit [facility] [address] [place] [phone] Joann Marquez, ANP- [address] [address] [place] [address] Health Maintenance Due Date Last Done Comments [...] of 2) 2023 Hemoglobin A1C 10/20/2023 04/20/2023, 04/2 11/2018, 05/22/2018 COVID-19 Vaccine ( season) 2024 Influenza Adult (#1) 2024 10/22/2017 Lipid Panel 01/14/2025 01/15/2024, 07/22, 04/26/2022, Additional history exists Meningococcal B Vaccine Aged Out No l onger eligible based on patient's age to complete this topic Meningococcal Vaccine Aged Out No nancy deisy eligible based on patient's age to complete this topic RSV Immunizations Under 20 Months Aged Out No longer eligible based on patient's age to complete this topic Procedures Procedure Name Priority Date/Time Associated Diagnosis Comments PRO-BRAIN NATRIURETIC PEPTIDE Routine 11/14/2024 9:48 AM COTTON JAMMER Dyspnea on exertion ELECTROCARDIOGRAM (NON MIDMARK ACQUIRED) Routine 11/14/2024 8:33 AM COTTON JAMMER Preop cardiovascular exam LIPID PANEL Routine 01/15/2024 Coronary artery disease of [place] artery of [place] heart with stable angina pectoris (CMS/HCC) Mixed hyperlipidemia Primary hypertension HEMOGLOBIN, GLYCOSYLATED Routine 04/20/2023 from Last 3 Months or Most Recently Relevant to Health Maintenance Results * (ABNORMAL) PRO-BRAIN NATRIURETIC PEPTIDE (11/14/2024 9:48 AM COTTON JAMMER) PRO-B TYPE NATRIURETIC PEPTIDE 3,830(H) <125 PG/ML 11/14/2024 10:38 AM COTTON JAMMER [facility] Comment: AGE INDEPENDENT: <300 PG/ML HAS A 99% NEGATIVE PREDICTIVE VALUE FOR EXCLUDING ACUTE CHF <50 YEARS: >450 PG/ML IS CONSISTENT WITH ACUTE CHF 50-75 YEARS: >900 PG/ML IS CONSISTENT WITH ACUTE CHF >75 YEARS: >1800 PG/ML IS CONSISTENT WITH ACUTE CHF IN PATIENTS WITH RENAL INSUFFICIENCY (GFR <60), >1200 PG/ML YIELDS A DIAGNOSTIC SENSITIVITY AND SPECIFICITY OF 89% AND 72% FOR ACUTE CHF. 11/14/2024 9:48 AM COTTON JAMMER us Joann Marquez [facility] Final Re sult [facility] [address] [place] [address], [id number] * ELECTROCARDIOGRAM (NON MIDMARK ACQUIRED) (11/14/2024 8:33 AM COTTON JAMMER) 11/14/2024 8:33 AM COTTON JAMMER Narrative [facility] - 11/14/2024 11:37 AM COTTON JAMMER ? [facility] ?[address], [place] ??[address] ? Test Date: ?2024-11-14 Pat Name: ? RUBIA KOWALSKI ?Department: ?? 105 ? Room: ? Gender: ? Male ? Loaf Counter: ?? onnelly : ?1975 ? Requested By: BRETT HNASEN Order Number: [id number] ?Reading MD: ?? Brett Hansen ? Measurements Intervals ?[place] ? Rate: ? 71 ? P: ?26 AL: ? 134 ?QRS: ?103 QRSD: ? 91 ? T: ?-14 QT: ? 376 ? QTc: ?410 ? Interpretive Statements SINUS RHYTHM RIGHT AXIS DEVIATION ABNORMAL QRS-T ANGLE ON JAMMER Procedure Note Brett Hansen MD - 11/14/2024 [facility] [address] [place] [address] Test Date: 2024-11-14 Pat Name: RUBIA KOWALSKI Department: 105 Room: Gender: Male Loaf Counter: catia : 1975 Requested By: BRETT HANSEN Order Number: [id number] Reading MD: Brett Hansen Measurements Intervals [place] Rate: 71 P: 26 AL: 134 QRS: 103 QRSD: 91 T: -14 QT: 376 QTc: 410 Interpretive Statements SINUS RHYTHM RIGHT AXIS DEVIATION ABNORMAL QRS-T ANGLE ON JAMMER Brett Hansen MD PROCEDURES-ORDERABLE NO CHARGE F inal Result [facility] * (ABNORMAL) LIPID PANEL (01/15/2024) CHOLESTEROL 195 <200 HDL 39 >or =40 TRIGLYCERIDES 263 <150 NON HDL CHOLESTEROL 156 <130 CHOL/HDL RATIO 5.0 <5.0 LDL (CALCULATED) 118 <100 01/15/2024 Joann Marquez [facility] Final Re sult * (ABNORMAL) HEMOGLOBIN, GLYCOSYLATED (04/20/2023) HGB A1C 8.3(A) <=5.7 % Narrative Resulting Agency Comment us Dennis Doran MD LABORATORY Final Result from Last 3 Months or Most Recently Relevant to Health Maintenance Insurance AET[employer]-MERITAIN AET[employer]-MER[employer]AIN Advance Directives * Full Code (Latest Code Status on File) Date Activated Date Inactivated Comments 05/21/2018 4:55 PM 05/22/2018 6:02 PM Care Teams Solar Business Developer Relationship Specialty Start Date End Date Denisha Hansen PA [address] [place] [address] PCP - General PHYSICIAN STRATIGRAPHER 10/24/23 Joann Marquez, ANP- [address] [place] [address] [address] [place] [address] [place] [employer] Sitter NURSE PRACTITIONER 02/28/17
--- OUTSIDE RECORDS SUMMARY | 2024-11-20 01:38 | XMS_ITS | Clinical Summary ---
Author Organization [facility] Address [address] [place] [address] Phone Care Team Providers Care Parts Processor Name Role Phone Dennis Doran MD Primary Care Provider [phone] Allergies Active Allergy Reactions Criticality Noted Date [...] 03/09/2020 Active ergocalciferol (VITAMIN D-2) 1.25 MG (07985 UT) capsule Take 50,000 Units by mouth [...] Comments Influenza Vaccine (#1) 2024 Care Teams Parts Processor Relationship Specialty Start Date End Date Dennis Doran MD [address] [place] [phone] PCP - General Internal Medicine 03/11/20
--- OUTSIDE RECORDS SUMMARY | 2024-11-20 01:38 | XMS_ITS | Encounter Summary ---
Author Organization [facility] Address [address] [place] [address]. [place] [address] [place] [address] Care Team Providers Care Stone Unloader Name Role Phone Dennis Doran MD Primary Care Provider [phone] Joann Marquez-BC Unavailable Denisha Hansen Primary Care Provider [phone] Encounter Details Date Type Department Care Team (Late Contact Info) Description 12/24/2019 Abstract [facility] [address] [place] [address] Joann Marquez ANP-BC [address] [facility] [address] [place] [address] Social History Tobacco Use Types Packs/Day Years Used Date Smoking Tobacco: Every Day Cigarettes Smokeless Tobacco: Never Alcohol Use Standard Drinks/Week Comments Yes 0 (1 standard drink = 0.6 oz pur e alcohol) 4-6 weekly Sex and Gender Information Value Date Recorded Sex Assigned at Male 11/14/2024 8:21 AM FISHER LOBSTER Legal Sex Male 1:10 AM CDT Gender Identity Not on file Sexual Orientation Not on file 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 Not on file Not on file Not on file Not on file Not on file Not on file Not on file documented as of this encounter Plan of Treatment Upcoming Encounters Date Type Department Care Team (Late Contact Info) Description 02/24/2025 1:30 PM CDT Office Visit [facility] [address] [place] [phone] Joann Marquez ANP-BC [address] [facility] [address] [phone] documented as of this encounter Procedures Procedure [...] documented as of this encounter Care Teams Stone Unloader Relationship Specialty Start Date End Date Dennis Doran MD PCP - General INTERNAL MEDICINE 02/28/17 10/23/23 Denisha Hansen PA [address] [place] [address] PCP - General PHYSICIAN TRAVELING SECRETARY 10/24/23 Joann Marquez, AURELIANO-BC [address] [facility] [address] [place] [address] [place] Gearcase Assembler NURSE PRACTITIONER 02/28/17 documented as of this encounter
--- OUTSIDE RECORDS SUMMARY | 2024-11-20 01:38 | XMS_ITS | Encounter Summary ---
Author Organization [facility] Address [address] [place] [address]. [place], [place] [address] [place] [address] Care Team Providers Care Customer Operations Representative Name Role Phone Dennis Doran MD Primary Care Provider [phone] Joann Marquez ANP-BC Unavailable [phone] Denisha Hansen Primary Care Provider [phone] Encounter Details Date Type Department Care Team (Late st Contact Info) Description 12/21/2021 Prep for Procedure [facility] [address] [place] [address] Nima Hollis MD [address] [place] [address] Social History Tobacco Use Types Packs/Day Years Used Date Smoking Tobacco: Every Day Cigarettes Smokeless Tobacco: Never Alcohol Use Standard Drinks/Week Comments Yes 0 (1 standard drink = 0.6 oz pur e alcohol) 4-6 weekly Sex and Gender Information Value Date Recorded Sex Assigned at Male 11/14/2024 8:21 AM COLLEGE HIRE Legal Sex Male 1:10 AM CDT Gender Identity Not on file Sexual Orientation Not on file 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 Not on file Not on file Not on file Not on file Not on file Not on file Not on file COVID-19 Exposure Response Date Recorded In the last 10 days, have yo u been in contact with someone who was confirmed or suspected to have Coronavirus/COVID-19? No / Unsure 12/19/2021 10:29 AM COLLEGE HIRE documented as of this encounter Plan of Treatment Upcoming Encounters Date Type Department Care Team (Late st Contact Info) Description 02/24/2025 1:30 PM CDT Office Visit [facility] [address] [place] [phone] Joann Marquez, ANP-BC [address] [facility] [address] [place] [address] documented as of this encounter Visit Diagnoses Not on filedocumented in this encounter Additional Health Concerns Infection Onset Date Last Indicated Resolved Time COVID-19 Rule Out 01/06/2022 01/06/2022 01/07/2022 2:32 PM CDT documented as of this encounter Care Teams Customer Operations Representative Relationship Specialty Start Date End Date Dennis Doran MD PCP - General INTERNAL MEDICINE 02/28/17 10/23/23 Denisha Hansen PA [address] [place] [address] PCP - General PHYSICIAN GEM CARVER 10/24/23 Joann Marquez, ANP-BC [address] [facility] [address] [place] [address] [facility] Charge Nurse NURSE PRACTITIONER 02/28/17 documented as of this encounter
--- OUTSIDE RECORDS SUMMARY | 2024-11-20 01:38 | XMS_ITS | Encounter Summary ---
Author Organization [facility] Address [address] [place] [address]. [place] [address] [place] [address] Care Team Providers Care Tile Molder Hand Name Role Phone Dennis Doran MD Primary Care Provider [phone] Joann Marquez-BC Unavailable Denisha Hansen Primary Care Provider [phone] Encounter Details Date Type Department Care Team (Late Contact Info) Description 05/04/2017 Abstract [facility] [address] [place] [address] Joann Marquez ANP-BC [address] [facility] [address] [place] [address] Social History Tobacco Use Types Packs/Day Years Used Date Smoking Tobacco: Every Day Cigarettes Smokeless Tobacco: Never Alcohol Use Standard Drinks/Week Comments Yes 0 (1 standard drink = 0.6 oz pur e alcohol) 4-6 weekly Sex and Gender Information Value Date Recorded Sex Assigned at Male 11/14/2024 8:21 AM TOOL AND DIE MAKER/DESIGNER Legal Sex Male 1:10 AM CDT Gender Identity Not on file Sexual Orientation Not on file 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 Not on file Not on file Not on file Not on file Not on file Not on file documented as of this encounter Plan of Treatment Upcoming Encounters Date Type Department Care Team (Late Contact Info) Description 02/24/2025 1:30 PM CDT Office Visit [facility] [address] [place] [address] Joann Marquez, AURELIANO-BC [address] [facility] [address] [place] [address] documented as of this encounter Visit Diagnoses Not on filedocumented in this encounter Additional Health Concerns Infection Onset Date Last Indicated Resolved Time COVID-19 Rule Out 01/06/2022 01/06/2022 01/07/2022 2:32 PM CDT documented as of this encounter Care Teams Tile Molder Hand Relationship Specialty Start Date End Date Dennis Doran MD PCP - General INTERNAL MEDICINE 02/28/17 10/23/23 Denisha Hansen PA [address] [place] [address] PCP - General PHYSICIAN BEDSPREAD CUTTER HAND 10/24/23 Joann Marquez, ANP-BC [address] [facility] [address] [place] [address] [employer] Tax Manager NURSE PRACTITIONER 02/28/17 documented as of this encounter
--- NOTE | 2024-11-20 07:33 | WPDHPUPDATE1 ---
History and Physical Update Update Date/Time: 11/20/24 07:33 History and Physical has been reviewed, including an updated exam of the patient. There are NO changes in the patient's condition. Risks, benefits, and alternatives have been discussed and questions answered. Patient agrees to proceed with procedure.
[2024-11-20] MEDS: SODIUM CHLORIDE 0.9% IV 500 ML 30 ML IV CONT (09:00)
[2024-11-20 09:18] LABS: Hematocrit 30.4 % (42.0-52.0); Hemoglobin 9.5 g/dL (14.0-18.0); Immature Platelet Fraction Pct 7.7 % (0.9-11.2); Mean Corpuscular HGB Conc 31.3 g/dl (32-36); Mean Corpuscular Hemoglobin 28.1 pg (26-34); Mean Corpuscular Volume 89.9 fl (80-100); Mean Platelet Volume 11.7 fl (7.4-10.4); Platelet Count Result 115 k/mm3 (150-375); Red Blood Count 3.38 M/mm3 (4.6-6.20); Red Cell Distribution Width 14.3 % (11.5-14.5); White Blood Count 8.2 K/mm3 (4.5-10.0)
[2024-11-20 09:30] LABS: Glucose Point of Care 243 mg/dl (65-105)
[2024-11-20 10:14] LABS: Anion Gap 11 mmol/L (4-12); Blood Urea Nitrogen 34 mg/dL (9-20); Calcium 9.1 mg/dL (8.4-10.2); Carbon Dioxide 18 mmol/L (22-30); Chloride 107 mmol/L (98-107); Estimated CRCL calculation 22 ml/min; Estimated Glomerular Filt Rate 16; Glucose 259 mg/dL (65-110); Potassium 4.8 mmol/L (3.4-5.0); Sodium 136 mmol/L (137-145)
--- NOTE | 2024-11-20 10:22 | P.PNAN_ITS ---
Anes - Initial Pre Proc Eval Procedure: Operation Date: 11/20/24 10:15 Proposed Procedures p Laparoscopic Peritoneal Dialysis Catheter Placement - Saskia Lagos MD Date/Time: 11/20/24 10:22 Surgeon: Saskia Lagos MD Pre Op Diagnosis: renal failure Patient Data Age: 49 Gender: M Height: 1.8 m Weight: 87 kg Last Vital Signs Temp 37.0 C 11/20/24 09:00 Pulse 65 11/20/24 09:00 Resp 14 11/20/24 09:00 BP 132/66 11/20/24 09:00 Pulse Ox 97 11/20/24 09:00 O2 Del Method Room Air 11/20/24 09:00 Allergies Allergy/AdvReac Type Severity Reaction Status Date / Time guaifenesin Allergy Severe Dyspnea / Verified 11/12/24 12:20 SOB Home Medications ?Medication ?Instructions ?Recorded ?Confirmed ?Type clopidogrel 75 mg tablet 75 mg PO DAILY 06/09/20 11/12/24 History cetirizine 10 mg tablet (Zyrtec) 10 mg PO DAILY 08/09/22 11/12/24 History albuterol sulfate 90 mcg/actuation 2 inh inhalation Q4H PRN shortness 08/07/23 11/12/24 Rx aerosol inhaler (Ventolin HFA) of breath or wheezing #6.7 grams insulin lispro 100 unit/mL 100 unit continuous subcutaneous 01/17/24 11/12/24 Rx subcutaneous solution (Humalog infusion DAILY #90 mL U-100 Insulin) carvedilol 25 mg tablet 25 mg PO BID #180 tabs 07/08/24 11/12/24 Rx pantoprazole 40 mg tablet,delayed 40 mg PO BID #180 tabs 08/01/24 11/12/24 Rx release lisinopril 2.5 mg tablet 2.5 mg PO DAILY #90 tabs 08/12/24 11/12/24 Rx levothyroxine 50 mcg tablet 50 mcg PO DAILY #90 tabs 08/18/24 11/12/24 Rx blood-glucose sensor (FreeStyle #3 ea 09/22/24 11/12/24 Rx Mita 3 Plus Sensor device) amlodipine 10 mg tablet 10 mg PO DAILY #90 tabs 09/25/24 11/12/24 Rx pregabalin 75 mg capsule 75 mg PO BID #180 caps 09/26/24 11/12/24 Rx isosorbide mononitrate 60 mg 60 mg PO DAILY 10/19/24 11/12/24 History tablet,extended release 24 hr venlafaxine 75 mg capsule,extended 150 mg PO DAILY 10/24/24 11/12/24 History release 24 hr alprazolam 0.25 mg tablet (Xanax) 0.25 mg PO DAILY PRN Anxiety #30 10/31/24 0 11/12/24 Rx tabs atorvastatin 40 mg tablet 40 mg PO DAILY #90 tabs 11/17/24 Rx Laboratory Tests 11/20/24 11/20/24 11/20/24 09:09 09:26 09:53 WBC 8.2 K/mm3 (4.5-10.0) RBC 3.38 L M/mm3 (4.6-6.20) Hgb 9.5 L g/dL (14.0-18.0) Hct 30.4 L % (42.0-52.0) MCV 89.9 fl (80-100) MCH 28.1 pg (26-34) MCHC 31.3 L g/dl (32-36) RDW 14.3 % (11.5-14.5) Plt Count 115 L k/mm3 (150-375) MPV 11.7 H fl (7.4-10.4) % Immature Plt Fraction 7.7 % (0.9-11.2) Sodium 136 L mmol/L (137-145) Potassium 4.8 mmol/L (3.4-5.0) Chloride 107 mmol/L (98-107) Carbon Dioxide 18 L mmol/L (22-30) Anion Gap 11 mmol/L (4-12) BUN 34 H mg/dL (9-20) Creatinine 3.91 H mg/dL (0.7-1.3) Estim Creat Clear Calc 22 ml/min Estimated GFR 16 L (59 - ) Glucose 259 H mg/dL (65-110) POC Capillary Glucose 243 H mg/dl (65-105) Calcium 9.1 mg/dL (8.4-10.2) Patient hx anesthesia problems: none Family hx anesthesia problems: none Results Review: All pre-operative results and documents have been reviewed as part of the pre- operative evaluation. [facility] Past Medical History Medical History Hyperparathyroidism Vitamin D deficiency Hypertension Chronic fatigue Peripheral neuropathy Subcutaneous mass of neck excised Diabetes type 2, controlled Restless leg syndrome History of melanoma History of myocardial infarction Skin cyst Melanoma Left cheek and nose Nocturia Mild prostate enlargement on CT December 2022 CKD (chronic kidney disease) stage 4, GFR 15-29 ml/min Abscess of skin Ear pain, right Hypothyroidism Type 1 diabetes mellitus Neuropathy Hyperlipidemia Long-term insulin use with insulin pump COPD (chronic obstructive pulmonary disease) Vision loss Heart disease CAD (coronary artery disease) Anxiety Surgical History Surgical History Hx of excision of mass Excision 2.5 cm subcutaneous mass of the neck with no margin 01/02/24 History of incision and drainage Multiple previous I&D's of bilateral groin abscesses for years History of heart artery stent x4 Family History Family History Mother Family history of cardiovascular disease Other Diabetes mellitus Family history of malignant neoplasm Hypertension Social History Social History Smoking packs per day: 2 Smoking cigarettes per day: 40.0 Years smoked: 25 Smoking pack-years: 50.00 Smoking status: Former smoker Tobacco type: cigarettes Second hand tobacco smoke exposure: Yes Smoking end date: 10/01/24 Alcohol intake: former Drinks per week: 6 Substance use: never Substance use type: does not use Do You Feel Safe in your Home?: Yes Lack of Transportation: No Lack of Food: Never True Current Housing: I Have Housing Concerned About Future Housing: No Difficulty Paying Gas/Electric Bills: No Difficulty Paying for Meds: No Currently Unemployed: No Education: High School Diploma/GED Difficulty w/ Childcare or Family Care: No Living arrangements: alone Occupation/Education: occupation 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 Gender identity (if verbalized by the patient): Male Spiritual care concerns: No Anes - Eval Final PreProcedure Day of Procedure 11/20/24 10:22 Patient weight: obese Heart: regular rate and rhythm Lungs: decreased breath sounds and other (on 4L NC since PNA October 2024) Airway: Mallampati scale class III and special considerations large tongue, poor opening and poor dentition Neurological: alert and oriented Last oral intake: >/= 8 hours ASA classification: IV Emergent: no Anesthetic plan: proceed Anesthesia type and monitoring: general ETT and standard monitoring Results Review: All pre-operative results and documents have been reviewed as part of the pre- operative evaluation. Informed Consent: The patient's anesthetic plan and its attendant risks and benefits were discussed with the patient/family/POA. Questions were solicited and answers provided to the satisfaction of the patient/family/POA.
[2024-11-20] MEDS: ceFAZolin 2 GM/D5W 50 ML 2 GM/50 ML BAG IVPB (10:34)
[2024-11-20] MEDS: BUPIVACAINE/EPINEPHRINE 0.5% 50 ML VIAL 20 ML INFILTRATE (11:17)
[2024-11-20] MEDS: HEPARIN SODIUM 5,000 UNITS/ML VIAL 5000 UNITS IRRIGATION (11:28)
--- NOTE | 2024-11-20 12:18 | W.PM.PROC2 ---
Procedure Note - Detailed Date of Procedure 11/20/24 Pre-op Diagnosis end-stage renal disease Post-op Diagnosis Same Procedure Performed laparoscopic placement of peritoneal dialysis catheter Surgeon Saskia Lagos MD Anesthesia General and Local Indications 49-year-old male with end-stage renal disease requiring dialysis. Patient has been set up for peritoneal dialysis catheter placement for peritoneal dialysis. Findings No adhesions in the pelvis, good placement of catheter in pelvis Description of Procedure Procedure as well as risks, benefits, and alternatives were discussed with the patient. Written consent was obtained and placed in chart prior to procedure. Patient was brought back to surgical suite. He was placed supine on operating table. Time-out was done to confirm patient and procedure. Patient was intubated by the anesthesia department. His abdomen was prepped and draped in sterile fashion using chlorhexidine prep. 0.5% bupivacaine with epinephrine was infiltrated locally around each of the locations for incisions. A 5 mm incision was made in the left upper quadrant and a 5 mm Optiview trocar was advanced through the abdominal layers under direct visualization. Once inside the abdominal cavity, carbon dioxide insufflation was insufflated creating pneumoperitoneum. The camera was inserted in the abdominal cavity was inspected. No abnormalities were identified. The patient was then placed in steep Trendelenburg position. No adhesions were noted in the lower abdomen and pelvis. An 8 mm incision was then made about 5 cm to the right of the umbilicus and an 8 mm trocar was inserted under direct visualization. This was angled caudally and towards midline and then advanced through the peritoneum about 5 cm inferior to the skin incision. The 62 cm argyle peritoneal dialysis catheter was advanced through the 8 mm port into the pelvis. This was advanced until the cuff was visualized then the cuff was withdrawn into the rectus muscle port was then carefully removed over the catheter tubing. The catheter appeared in proper position and no other abnormalities were noted. The pneumoperitoneum was released. The tunneling device was then secured to the and the catheter this was then advanced to the left of the insertion site. This was then punctured through the skin in the left lower quadrant and the catheter tubing was delivered all the way through until the 2nd cuff was secure within the subcutaneous tissue. The catheter was then instilled with about 20 mL of sterile saline. Then this was aspirated. The catheter appeared to function with ease. About 200 mL of sterile saline was then instilled and left within the abdominal cavity. I then proceeded to place 3 mL of heparinized saline in the catheter. The Luer lock and cap were then placed over the end of the catheter tubing. The LUQ trocar was then removed. The skin of the incisions was approximated using 4-0 Monocryl subcuticular sutures. Exofin glue was then applied on top. A Biopatch was then inserted at the exit site of the catheter and 4 x 4 gauze and Tegaderm dressing were then applied over the catheter. The patient was then awakened from anesthesia, extubated, and transferred to recovery. Implants Peritoneal dialysis catheter Estimated Blood Loss 5 Pathology None sent Complications No immediate complications Condition Stable Disposition PACU [facility] Billing Surgery - Charge Forward: Surgery Billing
[2024-11-20 12:23] LABS: Glucose Point of Care 273 mg/dl (65-105)
[2024-11-20 12:23] LABS: Glucose Point of Care 252 mg/dl (65-105)
[2024-11-20 19:13] LABS: Hepatitis B Surface Anti Res Negative
[2024-11-20 19:56] LABS: Hepatitis B Surface Antigen Negative (Negative)
[2024-11-22 02:57] LABS: Hepatitis B Core Ab Total NON-REACTIVE (NON-REACTIVE)
== END 2024-11-20 13:29 | disposition home or self-care (01) ==
PROVIDERS: Anesthesiology; Internal Medicine Nephrology; PCP Physician Assistant Medical; Visit Provider Surgery
PROC: 0WHG43Z Insertion of Infusion Device into Peritoneal Cavity, Percutaneous Endoscopic Approach (ICD-10-PCS; CPT 49324; principal; 2024-11-20 10:15)
DX: R94.01 Abnormal electroencephalogram [EEG] (principal); E03.9 Hypothyroidism, unspecified; E78.5 Hyperlipidemia, unspecified; E21.3 Hyperparathyroidism, unspecified; E55.9 Vitamin D deficiency, unspecified; E11.22 Type 2 diabetes mellitus with diabetic chronic kidney disease; I12.9 Hypertensive chronic kidney disease with stage 1 through stage 4 chronic kidney disease, or unspecified chronic kidney disease; N18.4 Chronic kidney disease, stage 4 (severe); I25.10 Atherosclerotic heart disease of native coronary artery without angina pectoris; F41.9 Anxiety disorder, unspecified; I11.9 Hypertensive heart disease without heart failure; R53.82 Chronic fatigue, unspecified; G25.81 Restless legs syndrome; J44.9 Chronic obstructive pulmonary disease, unspecified; G62.9 Polyneuropathy, unspecified; E66.9 Obesity, unspecified; Z68.26 Body mass index [BMI] 26.0-26.9, adult; Z79.4 Long term (current) use of insulin; Z79.02 Long term (current) use of antithrombotics/antiplatelets; Z79.51 Long term (current) use of inhaled steroids; Z99.81 Dependence on supplemental oxygen; Z99.2 Dependence on renal dialysis; Z98.890 Other specified postprocedural states; Z95.5 Presence of coronary angioplasty implant and graft; Z87.891 Personal history of nicotine dependence; Z85.820 Personal history of malignant melanoma of skin; Z80.9 Family history of malignant neoplasm, unspecified; Z82.49 Family history of ischemic heart disease and other diseases of the circulatory system
CPT/HCPCS: 49324; 36415; 80048; 82948; 85027; 85055; 86704; 86706; 87340; J0690; J1596; J1644; J2003; J2405; J2704; J2710; J3010; J7030; J7040; J7120

== ENCOUNTER 2024-12-11 15:50 | Outpatient (CLI) | payer OTHER, SELFPAY ==
--- NOTE | ~2024-12-11 | XR_ITS ---
EXAMINATION: XR abdomen/kub 1V DATE: 12/11/2024 16:05 INDICATION: Abdominal pain. TECHNIQUE: A supine view of the abdomen on 2 radiographs was obtained. COMPARISON: Abdomen radiographs 08/24/2006, CT abdomen and pelvis 01/04/2023 FINDINGS: There are no dilated loops of bowel. There is a small volume of stool in the colon. A pat ter overlies right abdomen. IMPRESSION: 1. Normal bowel gas pattern. Reviewed, dictated and finalized at location A. E MACHINE HEATER
--- OUTSIDE RECORDS SUMMARY | 2024-12-11 15:54 | XMS_ITS | Encounter Summary ---
Author Organization [facility] Address [facility] [place] [address] Care Team Providers Care Cartridge Assembler Name Role Phone Dennis Doran MD Primary Care Provider [phone] Joann Marquez-BC Unavailable [phone] Denisha Hansen Primary Care Provider [phone] Encounter Details Date Type Department Care Team (Late Contact Info) Description 05/04/2017 Abstract [facility] [address] [place] [phone] Joann Marquez ANP-BC [address] 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 [address] [place] [address] documented as of this encounter Procedures Procedure [...] documented as of this encounter Care Teams Cartridge Assembler Relationship Specialty Start Date End Date Dennis Doran MD PCP - General INTERNAL MEDICINE 02/28/17 10/23/23 Denisha Hansen PA [address] [place] [address] PCP - General PHYSICIAN PHYSICAL SCIENCES PROFESSOR 10/24/23 Joann Marquez, AURELIANO-BC [address] [facility] [address] [place] [address] [employer] Advisor NURSE PRACTITIONER 02/28/17 documented as of this encounter
--- OUTSIDE RECORDS SUMMARY | 2024-12-11 15:54 | XMS_ITS | Encounter Summary ---
Author Organization [facility] Address [facility] [place] [address] Care Team Providers Care Mold Operator Name Role Phone Dennis Doran MD Primary Care Provider [phone] Joann Marquez-BC Unavailable [phone] Denisha Hansen Primary Care Provider [phone] Encounter Details Date Type Department Care Team (Late Contact Info) Description 05/04/2017 Abstract [facility] [address] [place] [address] Joann Marquez ANP-BC [address] [facility] [address] [place] [phone] Social History Tobacco Use Types Packs/Day Years Used Date Smoking Tobacco: Every Day Cigarettes Smokeless Tobacco: Never Alcohol Use Standard Drinks/Week Comments Yes 0 (1 standard drink = 0.6 oz pur e alcohol) 4-6 weekly Sex and Gender Information Value Date Recorded Sex Assigned at Male 11/14/2024 8:21 AM 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 Not on file Not on file Not on file Not on file Not on file Not on file documented as of this encounter Plan of Treatment Upcoming Encounters Date Type Department Care Team (Late Contact Info) Description 02/24/2025 1:30 PM CDT Office Visit [facility] el[facility] [address] [place] [phone] Joann Marquez, ANP-BC [address] [facility] [address] [place] [address] documented as of this encounter Procedures Procedure [...] S/P/B 88 BILIRUBIN TOTAL S/P/B 0.8 02/25/2016 Dennis Doran MD LAB-OUTSIDE/ABSTRACTED Final R esult * LIPID PANEL (OUTSIDE LAB) (12/07/2015) CHOLESTEROL 150 TRIGLYCERIDES 308 HDL 34 LDL (CALCULATED) 54 NON HDL CHOLESTEROL 116 CHOL/HDL RATIO 4.4 12/07/2015 Dennis Doran MD LAB-OUTSIDE/ABSTRACTED Final R esult documented in this encounter Visit Diagnoses Not on filedocumented in this encounter Additional Health Concerns Infection Onset Date Last Indicated Resolved Time COVID-19 Rule Out 01/06/2022 01/06/2022 01/07/2022 2:32 PM CDT documented as of this encounter Care Teams Mold Operator Relationship Specialty Start Date End Date Dennis Doran MD PCP - General INTERNAL MEDICINE 02/28/17 10/23/23 Denisha Hansen PA [address] [place] [address] PCP - General PHYSICIAN EARLY INTERVENTIONIST 10/24/23 Joann Marquez, ANP- [address] [facility] [address] [phone] [place] Maintenance Assistant NURSE PRACTITIONER 02/28/17 documented as of this encounter
--- OUTSIDE RECORDS SUMMARY | 2024-12-11 15:54 | XMS_ITS | Encounter Summary ---
Author Organization [facility] Address [facility] [place] [address] Care Team Providers Care Brand Manager Name Role Phone Dennis Doran MD Primary Care Provider [phone] Jaonn Marquez-BC Unavailable [phone] Denisha Hansen Primary Care Provider [phone] Encounter Details Date Type Department Care Team (Late Contact Info) Description 12/24/2019 Abstract [facility] [address] [place] [address] Joann Marquez ANP-BC [address] [facility] [address] [place] [address] Social History Tobacco Use Types Packs/Day Years Used Date Smoking Tobacco: Every Day Cigarettes Smokeless Tobacco: Never Alcohol Use Standard Drinks/Week Comments Yes 0 (1 standard drink = 0.6 oz pur e alcohol) 4-6 weekly Sex and Gender Information Value Date Recorded Sex Assigned at Male 11/14/2024 8:21 AM CERAMIC MAKER DEMONSTRATOR Legal Sex Male 1:10 AM CDT Gender Identity Not on file Sexual Orientation Not on file 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 Not on file Not on file Not on file Not on file Not on file Not on file documented as of this encounter Plan of Treatment Upcoming Encounters Date Type Department Care Team (Late Contact Info) Description 02/24/2025 1:30 PM CDT Office Visit [facility] el[facility] [address] [place] [address] [phone] Joann Marquez ANP-BC [address] [phone] documented as of this encounter Procedures Procedure [...] as of this encounter Care Teams Brand Manager Relationship Specialty Start Date End Date Dennis Doran MD PCP - General INTERNAL MEDICINE 02/28/17 10/23/23 Denisha Hansen PA [address] [place] [address] PCP - General PHYSICIAN BAND SAWING MACHINE OPERATOR 10/24/23 Joann Marquez ANP-BC [id number] [place] [address] [place] Vascular Technician NURSE PRACTITIONER 02/28/17 documented as of this encounter
--- OUTSIDE RECORDS SUMMARY | 2024-12-11 15:54 | XMS_ITS | Encounter Summary ---
Author Organization [facility] Address [facility] [place] [address] Care Team Providers Care Tomb Maker Helper Name Role Phone Dennis Doran MD Primary Care Provider [phone] Joann Marquez-BC Unavailable [phone] Denisha Hansen Primary Care Provider [phone] Encounter Details Date Type Department Care Team (Late Contact Info) Description 05/04/2017 Abstract [facility] [address] [place] [address] Joann Marquez ANP-BC [address] [facility] [address] [place] [address] Social History Tobacco Use Types Packs/Day Years Used Date Smoking Tobacco: Every Day Cigarettes Smokeless Tobacco: Never Alcohol Use Standard Drinks/Week Comments Yes 0 (1 standard drink = 0.6 oz pur e alcohol) 4-6 weekly Sex and Gender Information Value Date Recorded Sex Assigned at Male 11/14/2024 8:21 AM GRAPHOTYPE OPERATOR Legal Sex Male 1:10 AM CDT Gender Identity Not on file Sexual Orientation Not on file 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 Not on file Not on file Not on file Not on file Not on file Not on file documented as of this encounter Plan of Treatment Upcoming Encounters Date Type Department Care Team (Late Contact Info) Description 02/24/2025 1:30 PM CDT Office Visit [facility] el[facility] [address] [place] [address] Joann Marquez ANP-BC [address] [facility] [address] [place] [address] documented as of this encounter Visit Diagnoses Not on filedocumented in this encounter Additional Health Concerns Infection Onset Date Last Indicated Resolved Time COVID-19 Rule Out 01/06/2022 01/06/2022 01/07/2022 2:32 PM CDT documented as of this encounter Care Teams Tomb Maker Helper Relationship Specialty Start Date End Date Dennis Doran MD PCP - General INTERNAL MEDICINE 02/28/17 10/23/23 Denisha Hansen PA [address] [place] [address] PCP - General PHYSICIAN HAND SPRAY OPERATOR 10/24/23 Joann Marquez, AURELIANO-ERICA [address] [facility] [address] [place] [address] [place] Photography Coordinator NURSE PRACTITIONER 02/28/17 documented as of this encounter
--- OUTSIDE RECORDS SUMMARY | 2024-12-11 15:55 | XMS_ITS | Clinical Summary ---
Author Organization [facility] Address [address] [place] [address] Phone Care Team Providers Care Welding Equipment Repairer Name Role Phone Dennis Doran MD Primary Care Provider [phone] Allergies Active Allergy Reactions Criticality Noted Date [...] 03/09/2020 Active ergocalciferol (VITAMIN D-2) 1.25 MG (64232 UT) capsule Take 50,000 Units by mouth [...] AM CDT Pulse - - Temperature 37.3 C (99.2 F) 05/10/2022 10:47 AM CDT Respiratory Rate 18 05/10/2022 10:47 AM CDT Oxygen Saturation - - Inhaled Oxygen Concentration - - Weight 88.5 kg (195 lb) 05/10/2022 10:47 AM CDT Height 180.3 cm (5' 11 ) 05/10/2022 10:47 AM CDT Body Mass Index 27.2 05/10/2022 10:47 AM CDT Plan of Treatment Health Maintenance Due Date Last Done Comments Influenza Vaccine (#1) 2024 Care Teams Welding Equipment Repairer Relationship Specialty Start Date End Date Dennis Doran MD [address] [place] [phone] PCP - General Internal Medicine 03/11/20
--- OUTSIDE RECORDS SUMMARY | 2024-12-11 15:55 | XMS_ITS | Encounter Summary ---
Author Organization [facility] Address [address] [place] [address] Care Team Providers Care Key Account Representative Name Role Phone Dennis Doran MD Primary Care Provider [phone] Joann Marquez [facility]- Unavailable [phone] Denisha Hansen Primary Care Provider [phone] Encounter Details Date Type Department Care Team (Late Contact Info) Description 11/18/2021 Abstract [facility] [address] [place] [address] Abstract, Doc [facility] Social History Tobacco Use Types Packs/Day Years Used Date Smoking Tobacco: Every Day Cigarettes Smokeless Tobacco: Never Alcohol Use Standard Drinks/Week Comments Yes 0 (1 standard drink = 0.6 oz pur e alcohol) 4-6 weekly Sex and Gender Information Value Date Recorded Sex Assigned at Male 11/14/2024 8:21 AM BACK HAND Legal Sex Male 1:10 AM CDT Gender Identity Not on file Sexual Orientation Not on file 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 Yes 11/07/2021 3:01 PM BACK HAND documented as of this encounter Plan of Treatment Upcoming Encounters Date Type Department Care Team (Late Contact Info) Description 02/24/2025 1:30 PM CDT [facility] [address] [place] [address] Joann Marquez, ANP-BC [address] [facility] [address] [place] [address] documented as of this encounter Procedures Procedure Name Priority Date/Time Associated Diagnosis Comments D-DIMER, QUANTITATIVE Routine 10/17/2021 TROPONIN WHOLE BLOOD Routine 09/20/2021 COMPREHENSIVE METABOLIC PANEL Routine 09/20/2021 CBC W/DIFF AUTOMATED Routine 09/20/2021 documented in this encounter Results * D-DIMER, QUANTITATIVE (10/17/2021) Pathologist [facility] D-DIMER 0.47 10/17/2021 us Doc [facility] LABORATORY Final Result * TROPONIN WHOLE BLOOD (09/20/2021) Pathologist [facility] TROPONIN T 8 <23 09/20/2021 us Doc [facility] Final Result * CBC W/DIFF AUTOMATED (09/20/2021) Pathologist [facility] WBC 7.8 RBC 4.45 HGB 13.4 HCT 40.4 MCV 90.8 MCH 30.1 MCHC 33.2 RDW 13.8 PLT 214 NEUTROPHILS % 70.6 LYMPHOCYTES % 17.1 MONOCYTES % 5.6 EOSINOPHILS % 5.4 BASOPHILS % 1.3 ABS. NEUTROPHILS 5,507 ABS. LYMPHOCYTES 1,334 ABS. MONOCYTES 437 ABS. BASOPHILS 101 09/20/2021 us Doc [facility] LABOR[facility] Final Result * (ABNORMAL) COMPREHENSIVE METABOLIC PANEL (09/20/2021) Pathologist [facility] SODIUM S/P/B 138 POTASSIUM S/P/B 4.2 CO2 [...] documented as of this encounter Care Teams Key Account Representative Relationship Specialty Start Date End Date Dennis Doran MD PCP - General INTERNAL MEDICINE 02/28/17 10/23/23 Denisha Hansen PA [address] [place] [address] PCP - General PHYSICIAN STORE PRODUCT DEMONSTRATOR 10/24/23 Joann Marquez, ANP- [address] [place] [address] [address] [place] [address] [place] Board Operator NURSE PRACTITIONER 02/28/17 documented as of this encounter
--- OUTSIDE RECORDS SUMMARY | 2024-12-11 15:55 | XMS_ITS | Clinical Summary ---
Author Organization [facility] Address [address] [place] [place] [address] Phone Care Team Providers Care Check Clerk Name Role Phone Dennis Doran MD Primary Care Provider Allergies No known active allergies Medications Amlodipine-Ator vastatin 10-40 mg tablet Take 1 Tablet by [...] at Not on file Legal Sex Male 4:06 AM TECHNOLOGY ENGINEER Gender Identity Not on file Sexual Orientation Not on file Last Filed Vital Signs Vital Sign Reading Time Taken Comments Blood Pressure 120/70 09/21/2015 2:37 PM TECHNOLOGY ENGINEER Pulse - - Temperature - - Respiratory Rate - - Oxygen Saturation - - Inhaled Oxygen Concentration - - Weight 86.2 kg (190 lb) 09/21/2015 2:37 PM TECHNOLOGY ENGINEER Height 180.3 cm (5' 11 ) 09/21/2015 2:37 PM TECHNOLOGY ENGINEER Body Mass Index 26.5 09/21/2015 2:37 PM TECHNOLOGY ENGINEER Plan of Treatment Health Maintenance Due Date Last Done Comments DTAP/TDAP/TD VACCINES (1 - Tdap) 1992 HEPATITIS B VACCINES (1 of 3 - 19+ 3-dose series) 07/23 COLORECTAL SCREENING 2018 Colorectal Cancer Screening 2018 FIT-DNA Q 3 years 2018 FIT/FOBT Q 1 year 2018 Flex Sig/CT Colonography Q 5 years 2018 ZOSTER VACCINE (1 of 2) 2023 INFLUENZA VACCINE (#1) 2024 Care Teams Check Clerk Relationship Specialty Start Date End Date Dennis Doran MD [address] [place] [phone] PCP - General Internal Medicine 09/21/15
--- OUTSIDE RECORDS SUMMARY | 2024-12-11 15:55 | XMS_ITS | Encounter Summary ---
Author Organization [facility] Address [facility] [place] [address] Care Team Providers Care Dancing Teacher Name Role Phone Dennis Doran MD Primary Care Provider [phone] Joann Marquez-BC Unavailable [phone] Denisha Hansen Primary Care Provider [phone] Encounter Details Date Type Department Care Team (Late Contact Info) Description 09/09/2015 Abstract [facility] [address] [place] [address] Joann Marquez, AURELIANO-BC [address] [facility] [address] [place] [address] Social History Tobacco Use Types Packs/Day Years Used Date Smoking Tobacco: Every Day Cigarettes Alcohol Use Standard Drinks/Week Comments Yes 0 (1 standard drink = 0.6 oz pur e alcohol) 8 beers (64) a month. 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 [address] [place] [address] documented as of this encounter Visit Diagnoses Not on filedocumented in this encounter Additional Health Concerns Infection Onset Date Last Indicated Resolved Time COVID-19 Rule Out 01/06/2022 01/06/2022 01/07/2022 2:32 PM CDT documented as of this encounter Care Teams Dancing Teacher Relationship Specialty Start Date End Date Dennis Doran MD PCP - General INTERNAL MEDICINE 02/28/17 10/23/23 Denisha Hansen PA [address] [place] [address] PCP - General PHYSICIAN DIE CASTING MACHINE SETTER 10/24/23 Joann Marquez, ANP-BC [address] [facility] [address] [place] [address] [place] Performance Engineer NURSE PRACTITIONER 02/28/17 documented as of this encounter
--- OUTSIDE RECORDS SUMMARY | 2024-12-11 15:55 | XMS_ITS | Clinical Summary ---
Author Organization [facility] Address [address] [place] [address] Care Team Providers Care Signing Agent Name Role Phone Joann Marquez Bernard [facility]- Unavailable [phone] Denisha Hansen Primary Care Provider [phone] Allergies Active Allergy Reactions Criticality Noted Date [...] daily. 90 tablet 1 06/04/20 24 Active nitroglycerin (NITROSTAT) 0.[address] 1 tablet (0.4 mg total) under the tongue every 5 (five) minutes as needed for Chest Pain. Maximum of 3 doses. 30 tablet 1 06/04/20 24 Active lisinopril (PRINIVIL) 2.5 MG tablet Take 1 tablet (2.5 mg total) by mouth daily. 10/06/20 24 Active isosorbide mononitrate ER (IMDUR) 60 MG 24 hr tablet Take 1 tablet (60 mg total) by mouth every morning. 90 tablet 1 12/01/19 25 Active isosorbide mononitrate ER (IMDUR) 60 MG 24 hr tablet Take 1 tablet (60 mg total) by mouth every morning. 90 tablet 1 06/04/20 24 025 Discontinu ed(Reorder ) evolocumab (REPATHA SURECLICK) 140 MG/ML injection (PEN) Inject 1 mL (140 mg total) into the skin every 14 (fourteen) days. 2 Pen 5 06/11/20 24 025 Discontinu ed(Discont inued by another clinician) Active Problems Problem Noted Date Diagnosed Date Chronic heart failure with p reserved ejection fraction (HFpEF) ([facility]) 11/16/2024 Tobacco use 12/24/2019 Chest pain 05/21/2018 CVA (cerebral vascular accident) ([facility]/ C) 10/22/2009 Coronary artery disease of n ative artery of [place] heart with stable angina pectoris Diabetic retinopathy ([facility]) Hyperlipidemia Hypertension Encounters Date Type Department Care Team Description 12/01/2024 Telephone [facility] [address] [place] [address] Joann Marquez, ANP-BC Refill Request 11/28/2024 Abstract [facility] [address] [place] [address] Abstract, Doc Pccl 11/18/2024 Telephone [facility] [address] [place] [address] Joann Marquez ANP-BC Other 11/14/2024 9:41 AM SUPERVISOR BRIDGES AND BUILDINGS - 11/14/2024 11:59 PM SUPERVISOR [employer]GES [employer] BUILDINGS Hospital Encounter [facility] [address] [place] [address] Joann Marquez ANP-BC Discharge Disposition: Home or Self Care (Routine Discharge) 11/14/2024 8:30 AM SUPERVISOR [employer]GES [employer] BUILDINGS Office Visit [facility] [address] [place] [address] Joann Marquez ANP-BC Pre-Op Exam 11/14/2024 Travel 11/04/2024 Telephone [facility] [address] [place] [address] [phone] Joann Marquez ANP-BC Appointment Request 10/19/2024 Scan 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 Not on file Not on file Not on file Not on file Not on file Not on file Not on file Last Filed Vital Signs Vital Sign Reading Time Taken Comments Blood Pressure 130/62 11/14/2024 8:35 AM SUPERVISOR BRIDGES [employer] BUILDINGS Pulse 71 11/14/2024 8:35 AM SUPERVISOR [employer]IDGES [employer] BUILDINGS Temperature 35.6 C (96.1 F) 01/09/2022 7:24 AM CDT Respiratory Rate 16 11/14/2024 8:35 AM SUPERVISOR [employer]IDGES [employer] BUILDINGS Oxygen Saturation 92% 11/14/2024 8:35 AM SUPERVISOR [employer]GES [employer] BUILDINGS Inhaled Oxygen Concentration - - Weight 88.9 kg (196 lb) 11/14/2024 8:35 AM SUPERVISOR [employer]IDGES [employer] BUILDINGS Height 180.3 cm (5' 11 ) 11/14/2024 8:35 AM SUPERVISOR [employer]IDGES [employer] BUILDINGS Body Mass Index 27.34 11/14/2024 8:35 AM SUPERVISOR [employer]GES [employer] BUILDINGS Plan of Treatment Upcoming Encounters Date Type Department Care Team (Late st Contact Info) Description 02/24/2025 1:30 PM CDT Office Visit [facility] eld [address] [place] [address] Joann Marquez, ANP-BC [address] [facility] [address] [place] [address] Health Maintenance Due Date Last [...] PRO-BRAIN NATRIURETIC PEPTIDE Routine 11/14/2024 9:48 AM SUPERVISOR BRIDGES [employer] BUILDINGS Dyspnea on exertion ELECTROCARDIOGRAM (NON MIDMARK ACQUIRED) Routine 11/14/2024 8:33 AM SUPERVISOR [employer]IDGES [employer] BUILDINGS Preop cardiovascular exam COMPREHENSIVE METABOLIC PANEL Routine 10/24/2024 CBC, MANUAL DIFF Routine 10/24/2024 MAGNESIUM Routine 10/24/2024 ECG GENERIC (SCAN ORDER) Routine 024 12:00 AM SUPERVISOR [employer]GES [employer] BUILDINGS LIPID PANEL Routine 01/15/2024 Coronary artery disease of [place] artery of [place] heart with stable angina pectoris (CMS/HCC) Mixed hyperlipidemia Primary hypertension HEMOGLOBIN, GLYCOSYLATED Routine 04/20/2023 from Last 3 Months or Most Recently Relevant to Health Maintenance Results * (ABNORMAL) PRO-BRAIN NATRIURETIC PEPTIDE (11/14/2024 9:48 AM SUPERVISOR [employer]GES [employer] BUILDINGS) PRO-B TYPE NATRIURETIC PEPTIDE 3,830(H) <125 PG/ML 11/14/2024 10:38 AM SUPERVISOR BRIDGES AND BUILDINGS [facility] Comment: AGE INDEPENDENT: <300 [...] 72% FOR ACUTE CHF. 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: catia : 1975 Requested By: BRETT HANSEN Order Number: [id number] Reading MELANIE Hansen Measurements Intervals [place] Rate: 71 P: 26 MT: 134 QRS: 103 QRSD: 91 T: -14 QT: 376 QTc: 410 Interpretive Statements SINUS RHYTHM RIGHT AXIS DEVIATION ABNORMAL QRS-T ANGLE RVISOR BRIDGES AND BUILDINGS Procedure Note Brett Hansen MD - 11/14/2024 [facility] [address] [place] [address] Test Date: 2024-11-14 Pat Name: RUBIA KOWALSKI Department: 105 Room: Gender: Male Compound Coating Machine Offbearer: catia : 1975 Requested By: BRETT HANSEN Order Number: [id number] Reading MELANIE Hansen Measurements Intervals [place] Rate: 71 P: 26 MT: 134 QRS: 103 QRSD: 91 T: -14 QT: 376 QTc: 410 Interpretive Statements SINUS RHYTHM RIGHT AXIS DEVIATION ABNORMAL QRS-T ANGLE RVISOR BR[employer]GES [employer] BUILDINGS Brett Hansen MD PROCEDURES-ORDERABLE NO CHARGE F inal Result [facility] * (ABNORMAL) COMPREHENSIVE METABOLIC PANEL (10/24/2024) SODIUM S/P/B 138 GLUCOSE 234 mg/dL AST 17 BUN 42 CREATININE S/P/B 4.20(A) 0.7 - 1.3 CALCIUM S/P/B 8.4 POTASSIUM S/P/B 4.2 CHLORIDE S/P/B 113 ALT 11 GFR ESTIMATE 15 Narrative Resulting Agency Comment [facility] us Default History Genericprovider LABORATORY Final Result * CBC, MANUAL DIFF (10/24/2024) Pathologist [facility] WBC 5.2 HGB 9.7 HCT 30.5 PLT 90 Narrative Resulting Agency Comment [facility] Default History Genericprovider LABORATORY Final Result * MAGNESIUM (10/24/2024) [facility] MAGNESIUM 2.0 Narrative Resulting Agency Comment [facility] Default History Genericprovider LABORATORY Final Result * ECG (10/19/2024 12:00 AM SUPERVISOR [employer]GES [employer] BUILDINGS) 10/19/2024 Doc Pccl Scanned SCANNING Final Result HS ONBASE * (ABNORMAL) LIPID PANEL (01/15/2024) Pathologist [facility] CHOLESTEROL 195 <200 HDL 39 >or =40 TRIGLYCERIDES 263 <150 NON HDL CHOLESTEROL 156 <130 CHOL/HDL RATIO 5.0 <5.0 LDL (CALCULATED) 118 <100 01/15/2024 Joann Marquez [facility]-BC LABORATORY Final Re sult * (ABNORMAL) HEMOGLOBIN, GLYCOSYLATED (04/20/2023) Pathologist [facility] HGB A1C 8.3(A) <=5.7 % Narrative Resulting Agency Comment us Dennis Doran MD LABORATORY Final Result from Last 3 Months or Most Recently Relevant to Health Maintenance Insurance AETNA-popch[employer]AIN AETNA-MERITAIN Advance Directives * Full Code (Latest Code Status on File) Date Activated Date Inactivated Comments 05/21/2018 4:55 PM 05/22/2018 6:02 PM Care Teams Signing Agent Relationship Specialty Start Date End Date Denisha Hansen PA [address] [place] [address] PCP - General PHYSICIAN BUSINESS SERVICES REPRESENTATIVE 10/24/23 Joann Marquez, ANP-BC [address] [place] [address] [address] [place] [address] [place] Blank Driller NURSE PRACTITIONER 02/28/17
--- OUTSIDE RECORDS SUMMARY | 2024-12-11 15:55 | XMS_ITS | Encounter Summary ---
Author Organization [facility] Address [facility] [place] [address] Care Team Providers Care It Risk And Assurance Manager Name Role Phone Dennis Doran MD Primary Care Provider [phone] Joann Marquez [facility]- Unavailable [phone] Denisha Hansen Primary Care Provider [phone] Encounter Details Date Type Department Care Team (Late st Contact Info) Description 12/21/2021 Prep for Procedure [facility] [address] [place] [address] Nima Hollis MD [address] [place] [address] Social History Tobacco Use Types Packs/Day Years Used Date Smoking Tobacco: Every Day Cigarettes Smokeless Tobacco: Never Alcohol Use Standard Drinks/Week Comments Yes 0 (1 standard drink = 0.6 oz pur e alcohol) 4-6 weekly Sex and Gender Information Value Date Recorded Sex Assigned at Male 11/14/2024 8:21 AM DUDE RANCH MANAGER Legal Sex Male 1:10 AM CDT Gender Identity Not on file Sexual Orientation Not on file 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 No / Unsure 12/19/2021 10:29 AM DUDE RANCH MANAGER documented as of this encounter Plan of Treatment Upcoming Encounters Date Type Department Care Team (Late st Contact Info) Description 02/24/2025 1:30 PM CDT Office Visit [facility] [address] [place] [address] Joann Marquez, ANP-BC [address] [facility] [address] [place] [address] documented as of this encounter Visit Diagnoses Not on filedocumented in this encounter Additional Health Concerns Infection Onset Date Last Indicated Resolved Time COVID-19 Rule Out 01/06/2022 01/06/2022 01/07/2022 2:32 PM CDT documented as of this encounter Care Teams It Risk And Assurance Manager Relationship Specialty Start Date End Date Dennis Doran MD PCP - General INTERNAL MEDICINE 02/28/17 10/23/23 Denisha Hansen PA [address] [place] [address] PCP - General PHYSICIAN SHADE CLASSIFIER 10/24/23 Joann Marquez, AURELIANO-BC [address] [facility] [address] [place] [address] [place] Toe Trimmer NURSE PRACTITIONER 02/28/17 documented as of this encounter
== END 2024-12-11 15:51 | disposition home or self-care (01) ==
PROVIDERS: Visit Provider Internal Medicine Nephrology
DX: T85.691A Other mechanical complication of intraperitoneal dialysis catheter, initial encounter (principal)
CPT/HCPCS: 74018

== ENCOUNTER 2024-12-18 09:36 | Outpatient (CLI) | payer OTHER, SELFPAY | END 2024-12-18 09:37 | disposition home or self-care (01) | PROVIDERS: PCP Physician Assistant Medical; Visit Provider Internal Medicine Nephrology | DX: T85.691A Other mechanical complication of intraperitoneal dialysis catheter, initial encounter (principal); Y83.8 Other surgical procedures as the cause of abnormal reaction of the patient, or of later complication, without mention of misadventure at the time of the procedure | CPT/HCPCS: 74018 ==

== ENCOUNTER 2024-12-27 10:20 | Outpatient (CLI) | payer OTHER, SELFPAY ==
--- NOTE | ~2024-12-27 | CT_ITS ---
Non-contrast CT scan of the Abdomen and Pelvis Clinical indication: End-stage renal disease Technique: 2.5 mm axial scans were obtained through the abdomen and pelvis without intravenous or or al contrast. Dose reduction technique was used on this scan by utilizing automated exposure control a nd iterative reconstruction technique. The dose-length product (DLP) was 405.17 mGy-cm. COMPARISON: 01/04/2023 Findings: Images through the lung bases reveal discoid atelectasis or scarring at the lingula. Proba ble minimal right basilar atelectatic change. Minimal pleural effusions. There is no evidence of renal or ureteral calculi. The kidneys and the ureters are nondilated. The liver, spleen, pancreas, gallbladder, and adrenals appear normal. There are atherosclerotic calci fications of the aorta. . There is no evidence of bowel obstruction. Images through the pelvis were performed. There is no evidence of ascites or lymphadenopathy. Urinary bladder unremarkable. No pelvic mass seen. There is peritoneal dialysis catheter without distinct as cites at this time. Impression: Peritoneal dialysis catheter without ascites. Minimal pleural effusions. Reviewed, dictated and finalized at location . Impression: Peritoneal dialysis catheter without ascites. Minimal pleural effusions.
--- OUTSIDE RECORDS SUMMARY | 2024-12-27 10:24 | XMS_ITS | Clinical Summary ---
Author Organization [facility] Address [address] [place] [address] Care Team Providers Care Art Educator Name Role Phone Joann Marquez Bernard [facility]- Unavailable [phone] Denisha Hansen Primary Care Provider [phone] Allergies Active Allergy Reactions Criticality Noted Date [...] morning. 90 tablet 1 06/04/20 24 025 Discontin ued(Reord er) Active Problems Problem Noted Date Diagnosed Date Chronic heart failure with p reserved ejection fraction (HFpEF) ([facility]) 11/16/2024 Tobacco use 12/24/2019 Chest pain 05/21/2018 CVA (cerebral vascular accident) ([facility] C) 10/22/2009 Coronary artery disease of n ative artery of [place] heart with stable angina pectoris Diabetic retinopathy ([facility]) Hyperlipidemia Hypertension Encounters Date Type Department Care Team Description 12/01/2024 Telephone [facility] [address] [place] [address] Joann Marquez, ANP-BC Refill Request 11/28/2024 Abstract [facility] [address] [place] [address] Abstract, Doc Pccl 11/18/2024 Telephone [facility] [address] [place] [address] Joann Marquez ANP-BC Other 11/14/2024 9:41 AM MAT WORKER - 11/14/2024 11:59 PM MAT WORKER Hospital Encounter [facility] [address] [place] [address] Joann Marquez, MARIO Discharge Disposition: Home or Self Care (Routine Discharge) 11/14/2024 8:30 AM MAT WORKER Office Visit [facility] [address] [place] [phone] Joann Marquez ANP-BC Pre-Op Exam 11/14/2024 Travel 11/04/2024 Telephone [facility] [address] [place] [address] Joann Marquez, MARIO Appointment Request 10/19/2024 Scan [facility] [address] [place] [address] Scanned, Doc Pccl ECG (SCAN) from Last [...] Sex Assigned at Male 11/14/2024 8:21 AM MAT WORKER Legal Sex Male 1:10 AM CDT Gender Identity Not on file Sexual Orientation Not on file 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 Not on file Not on file Not on file Not on file Not on file Not on file Last Filed Vital Signs Vital Sign Reading Time Taken Comments Blood Pressure 130/62 11/14/2024 8:35 AM MAT WORKER Pulse 71 11/14/2024 8:35 AM MAT WORKER Temperature 35.6 C (96.1 F) 01/09/2022 7:24 AM CDT Respiratory Rate 16 11/14/2024 8:35 AM MAT WORKER Oxygen Saturation 92% 11/14/2024 8:35 AM MAT WORKER Inhaled Oxygen Concentration - - Weight 88.9 kg (196 lb) 11/14/2024 8:35 AM MAT WORKER Height 180.3 cm (5' 11 ) 11/14/2024 8:35 AM MAT WORKER Body Mass Index 27.34 11/14/2024 8:35 AM MAT WORKER Plan of Treatment Upcoming Encounters Date Type Department Care Team ([facility] st Contact Info) Description 02/24/2025 1:30 PM CDT Office Visit [facility] eld [address] [place] [address] Joann Marquez, ANP-BC [address] [facility] [address] [place] [address] Health Maintenance Due Date Last [...] topic Meningococcal Vaccine Aged Out No nancy deiys eligible based on patient's age to complete this topic RSV Immunizations Under 20 Months Aged Out No longer eligible based on patient's age to complete this topic Procedures Procedure Name Priority Date/Time Associated Diagnosis Comments PRO-BRAIN NATRIURETIC PEPTIDE Routine 11/14/2024 9:48 AM MAT WORKER Dyspnea on exertion ELECTROCARDIOGRAM (NON MIDMARK ACQUIRED) Routine 11/14/2024 8:33 AM MAT WORKER Preop cardiovascular exam COMPREHENSIVE METABOLIC PANEL Routine 10/24/2024 CBC, MANUAL DIFF Routine 10/24/2024 MAGNESIUM Routine 10/24/2024 ECG GENERIC (SCAN ORDER) Routine 024 12:00 AM MAT WORKER LIPID PANEL Routine 01/15/2024 Coronary artery disease of [place] artery of [place] heart with stable angina pectoris Mixed hyperlipidemia Primary hypertension HEMOGLOBIN, GLYCOSYLATED Routine 04/20/2023 from Last 3 Months or Most Recently Relevant to Health Maintenance Results * (ABNORMAL) PRO-BRAIN NATRIURETIC PEPTIDE (11/14/2024 9:48 AM MAT WORKER) Pathologist [facility] PRO-B TYPE NATRIURETIC PEPTIDE 3,830(H) <125 PG/ML 11/14/2024 10:38 AM MAT WORKER [facility] Comment: AGE INDEPENDENT: <300 PG/ML HAS [...] 72% FOR ACUTE CHF. 11/14/2024 9:48 AM MAT WORKER us Joann Marquez [facility] Final Re sult [facility] [address] [place] [address], [id number] * ELECTROCARDIOGRAM (NON MIDMARK ACQUIRED) (11/14/2024 8:33 AM MAT WORKER) 11/14/2024 8:33 AM MAT WORKER Narrative [facility] 11/14/2024 11:37 AM MAT WORKER [facility] [address] [place] [address] Test Date: 2024-11-14 Pat Name: RUBIA KOWALSKI Department: 105 Room: Gender: Male Acrylic Fabricator: catia : 1975 Requested By: BRETT HANSEN Order Number: [id number] Reading MD: Brett Hansen Measurements Intervals [place] Rate: 71 P: 26 MD: 134 QRS: 103 QRSD: 91 T: -14 QT: 376 QTc: 410 Interpretive Statements SINUS RHYTHM RIGHT AXIS DEVIATION ABNORMAL QRS-T ANGLE WORKER Procedure Note Brett Hansen MD - 11/14/2024 [facility] [address] [place] [address] Test Date: 2024-11-14 Pat Name: RUBIA KOWALSKI Department: 105 Room: Gender: Male Acrylic Fabricator: catia : 1975 Requested By: BRETT HANSEN Order Number: [id number] Reading MD: Brett Hansen Measurements Intervals [place] Rate: 71 P: 26 MD: 134 QRS: 103 QRSD: 91 T: -14 QT: 376 QTc: 410 Interpretive Statements SINUS RHYTHM RIGHT AXIS DEVIATION ABNORMAL QRS-T ANGLE WORKER Brett Hansen MD PROCEDURES-ORDERABLE NO CHARGE F inal Result [facility] * (ABNORMAL) COMPREHENSIVE METABOLIC PANEL (10/24/2024) SODIUM S/P/B 138 GLUCOSE 234 mg/dL AST 17 BUN 42 CREATININE S/P/B 4.20(A) 0.7 - 1.3 CALCIUM S/P/B 8.4 POTASSIUM S/P/B 4.2 CHLORIDE S/P/B 113 ALT 11 GFR ESTIMATE 15 Narrative Resulting Agency [facility] us Default History Genericprovider LABORATORY Final Result * CBC, MANUAL DIFF (10/24/2024) Pathologist [facility] WBC 5.2 HGB 9.7 HCT 30.5 PLT 90 Narrative Resulting Agency Comment [facility] Default History Genericprovider LABORATORY Final Result * MAGNESIUM (10/24/2024) Pathologist [facility] MAGNESIUM 2.0 Narrative Resulting Agency Comment [facility] Default History Genericprovider LABORATORY Final Result * ECG (10/19/2024 12:00 AM MAT WORKER) 10/19/2024 Doc Pccl Scanned SCANNING Final Result [facility] ONBASE * (ABNORMAL) LIPID PANEL (01/15/2024) Pathologist [facility] CHOLESTEROL 195 <200 HDL 39 >or =40 TRIGLYCERIDES 263 <150 NON HDL CHOLESTEROL 156 <130 CHOL/HDL RATIO 5.0 <5.0 LDL (CALCULATED) 118 <100 01/15/2024 Joann Marquez [facility] Final Re sult * (ABNORMAL) HEMOGLOBIN, GLYCOSYLATED (04/20/2023) Pathologist [facility] HGB A1C 8.3(A) <=5.7 % Narrative Resulting Agency Comment Dennis Doran MD LABORATORY Final Result from Last 3 Months or Most Recently Relevant to Health Maintenance Insurance AETNA-MERITAIN AET[employer]-MER[employer] Advance Directives * Full Code (Latest Code Status on File) Date Activated Date Inactivated Comments 05/21/2018 4:55 PM 05/22/2018 6:02 PM Care Teams Art Educator Relationship Specialty Start Date End Date Denisha Hansen PA [address] [place] [id number] PCP - General PHYSICIAN AUTOMOTIVE GLASS MECHANIC 10/24/23 Joann Marquez, ANP-BC [address] [place] [address] [address] [place] [address] [facility] Specialist NURSE PRACTITIONER 02/28/17
--- OUTSIDE RECORDS SUMMARY | 2024-12-27 10:24 | XMS_ITS | Encounter Summary ---
Author Organization [facility] Address [facility] [place] [address] Care Team Providers Care Armature And Rotor Winder Name Role Phone Dennis Doran MD Primary Care Provider [phone] Joann Marquez-BC Unavailable [phone] Denisha Hansen Primary Care Provider [phone] Encounter Details Date Type Department Care Team (Late Contact Info) Description 05/04/2017 Abstract [facility] [address] [place] [address] Joann Marquez, AURELIANO-BC [address] [facility] [address] [place] [address] Social History Tobacco Use Types Packs/Day Years Used Date Smoking Tobacco: Every Day Cigarettes Smokeless Tobacco: Never Alcohol Use Standard Drinks/Week Comments Yes 0 (1 standard drink = 0.6 oz pur e alcohol) 4-6 weekly Sex and Gender Information Value Date Recorded Sex Assigned at Male 11/14/2024 8:21 AM THERMAL CUTTER HELPER Legal Sex Male 1:10 AM CDT Gender Identity Not on file Sexual Orientation Not on file 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 Not on file Not on file Not on file Not on file Not on file Not on file documented as of this encounter Plan of Treatment Upcoming Encounters Date Type Department Care Team (Late Contact Info) Description 02/24/2025 1:30 PM CDT Office Visit [facility] eld [address] [place] [address] Joann Marquez ANP-BC [address] [facility] [address] [place] [address] documented as of this encounter Visit Diagnoses Not on filedocumented in this encounter Additional Health Concerns Infection Onset Date Last Indicated Resolved Time COVID-19 Rule Out 01/06/2022 01/06/2022 01/07/2022 2:32 PM CDT documented as of this encounter Care Teams Armature And Rotor Winder Relationship Specialty Start Date End Date Dennis Doran MD PCP - General INTERNAL MEDICINE 02/28/17 10/23/23 Denisha Hansen PA [address] [place] [address] PCP - General PHYSICIAN TREE SPECIALIST 10/24/23 Joann Marquez, AURELIANO-[place] [address] [facility] [address] [place] [address] [place] Bagger And Stock Handler Helper NURSE PRACTITIONER 02/28/17 documented as of this encounter
--- OUTSIDE RECORDS SUMMARY | 2024-12-27 10:24 | XMS_ITS | Clinical Summary ---
Author Organization [facility] Address [address] [place] [place] [address] Phone Care Team Providers Care Meterman Name Role Phone Dennis Doran MD Primary Care Provider [phone] Allergies No known active allergies Medications Amlodipine-Ator [...] on file Legal Sex Male 4:06 AM VP SITE Gender Identity Not on file Sexual Orientation Not on file Last Filed Vital Signs Vital Sign Reading Time Taken Comments Blood Pressure 120/70 09/21/2015 2:37 PM VP SITE Pulse - - Temperature - - Respiratory Rate - - Oxygen Saturation - - Inhaled Oxygen Concentration - - Weight 86.2 kg (190 lb) 09/21/2015 2:37 PM VP SITE Height 180.3 cm (5' 11 ) 09/21/2015 2:37 PM VP SITE Body Mass Index 26.5 09/21/2015 2:37 PM VP SITE Plan of Treatment Health Maintenance Due Date Last Done Comments DTAP/TDAP/TD VACCINES (1 - Tdap) 1992 HEPATITIS B VACCINES (1 of 3 - 19+ 3-dose series) 07/23 COLORECTAL SCREENING 2018 Colorectal Cancer Screening 2018 FIT-DNA Q 3 years 2018 FIT/FOBT Q 1 year 2018 Flex Sig/CT Colonography Q 5 years 2018 ZOSTER VACCINE (1 of 2) 2023 INFLUENZA VACCINE (#1) 2024 Care Teams Meterman Relationship Specialty Start Date End Date Dennis Doran MD [address] [place] [phone] PCP - General Internal Medicine 09/21/15
--- OUTSIDE RECORDS SUMMARY | 2024-12-27 10:24 | XMS_ITS | Clinical Summary ---
Author Organization [facility] Address [address] [place] [address] Phone Care Team Providers Care Packing Room Inspector Name Role Phone Dennis Doran MD Primary Care Provider [phone] Allergies Active Allergy Reactions Criticality Noted Date [...] 03/09/2020 Active ergocalciferol (VITAMIN D-2) 1.25 MG (28825 UT) capsule Take 50,000 Units by mouth [...] Comments Influenza Vaccine (#1) 2024 Care Teams Packing Room Inspector Relationship Specialty Start Date End Date Dennis Doran MD [address] [place] [phone] PCP - General Internal Medicine 03/11/20
--- OUTSIDE RECORDS SUMMARY | 2024-12-27 10:24 | XMS_ITS | Encounter Summary ---
Author Organization [facility] Address [facility] [place] [address] Care Team Providers Care Welder Gas Tungsten Arc Name Role Phone Dennis Doran MD Primary Care Provider [phone] Joann Marquez-BC Unavailable [phone] Denisha Hansen Primary Care Provider [phone] Encounter Details Date Type Department Care Team (Late Contact Info) Description 05/04/2017 Abstract [facility] [address] [place] [address] Joann Marquez, AURELIANO-BC [address] [facility] [address] [place] [address] Social History Tobacco Use Types Packs/Day Years Used Date Smoking Tobacco: Every Day Cigarettes Smokeless Tobacco: Never Alcohol Use Standard Drinks/Week Comments Yes 0 (1 standard drink = 0.6 oz pur e alcohol) 4-6 weekly Sex and Gender Information Value Date Recorded Sex Assigned at Male 11/14/2024 8:21 AM ACCOUNTING POLICY CONSULTANT Legal Sex Male 1:10 AM CDT Gender Identity Not on file Sexual Orientation Not on file 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 Not on file Not on file Not on file Not on file Not on file Not on file documented as of this encounter Plan of Treatment Upcoming Encounters Date Type Department Care Team (Late Contact Info) Description 02/24/2025 1:30 PM CDT Office Visit [facility] [address] [place] [phone] Joann Marquez, ANP-BC [address] [facility] [address] [place] [address] documented as of this encounter [...] documented as of this encounter Care Teams Welder Gas Tungsten Arc Relationship Specialty Start Date End Date Dennis Doran MD PCP - General INTERNAL MEDICINE 02/28/17 10/23/23 Denisha Hansen PA [address] [place] [address] PCP - General PHYSICIAN COORDINATOR CARDIOPULMONARY SERVICES 10/24/23 Joann Marquez, ANP- [address] [facility] [address] [phone] [place] Livestock Producer NURSE PRACTITIONER 02/28/17 documented as of this encounter
--- OUTSIDE RECORDS SUMMARY | 2024-12-27 10:24 | XMS_ITS | Encounter Summary ---
Author Organization [facility] Address [facility] [place] [address] Care Team Providers Care Rig Mechanic Name Role Phone Dennis Doran MD Primary Care Provider [phone] Joann Marquez-BC Unavailable [phone] Denisha Hansen Primary Care Provider [phone] Encounter Details Date Type Department Care Team (Late Contact Info) Description 12/24/2019 Abstract [facility] [address] [place] [phone] Joann Marquez, AURELIANO-BC [address] [facility] [address] [place] [address] Social History Tobacco Use Types Packs/Day Years Used Date Smoking Tobacco: Every Day Cigarettes Smokeless Tobacco: Never Alcohol Use Standard Drinks/Week Comments Yes 0 (1 standard drink = 0.6 oz pur e alcohol) 4-6 weekly Sex and Gender Information Value Date Recorded Sex Assigned at Male 11/14/2024 8:21 AM TUBE MAN Legal Sex Male 1:10 AM CDT Gender Identity Not on file Sexual Orientation Not on file 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 Not on file Not on file Not on file Not on file Not on file Not on file documented as of this encounter Plan of Treatment Upcoming Encounters Date Type Department Care Team (Late Contact Info) Description 02/24/2025 1:30 PM CDT Office Visit [facility] [address] [place] [address] [phone] Joann Marquez ANP-BC [address] [phone] documented as of this encounter Procedures Procedure [...] documented as of this encounter Care Teams Rig Mechanic Relationship Specialty Start Date End Date Dennis Doran MD PCP - General INTERNAL MEDICINE 02/28/17 10/23/23 Denisha Hansen PA [address] [place] [address] PCP - General PHYSICIAN VERTICA ARCHITECT 10/24/23 Joann Marquez ANP-BC [address] [id number] [place] [address] [place] Coal Picker NURSE PRACTITIONER 02/28/17 documented as of this encounter
--- OUTSIDE RECORDS SUMMARY | 2024-12-27 10:24 | XMS_ITS | Encounter Summary ---
Author Organization [facility] Address [facility] [place] [address] Care Team Providers Care Volunteer Patient Representative Name Role Phone Dennis Doran MD Primary Care Provider Joann Marquez-BC Unavailable [phone] Denisha Hansen Primary Care Provider [phone] Encounter Details Date Type Department Care Team (Late Contact Info) Description 05/04/2017 Abstract [facility] [address] [place] [address] Joann Marquez, AURELIANO-BC [address] [facility] [address] [place] [address] Social History Tobacco Use Types Packs/Day Years Used Date Smoking Tobacco: Every Day Cigarettes Smokeless Tobacco: Never Alcohol Use Standard Drinks/Week Comments Yes 0 (1 standard drink = 0.6 oz pur e alcohol) 4-6 weekly Sex and Gender Information Value Date Recorded Sex Assigned at Male 11/14/2024 8:21 AM SENIOR UNDERWRITING ASSISTANT Legal Sex Male 1:10 AM CDT Gender Identity Not on file Sexual Orientation Not on file 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 Not on file Not on file Not on file Not on file Not on file Not on file documented as of this encounter Plan of Treatment Upcoming Encounters Date Type Department Care Team (Late Contact Info) Description 02/24/2025 1:30 PM CDT Office Visit [facility] el[facility] [address] [place] [address] Joann Marquez ANP-BC [address] [facility] [address] [place] [address] documented as of this encounter Procedures Procedure [...] documented as of this encounter Care Teams Volunteer Patient Representative Relationship Specialty Start Date End Date Dennis Doran MD PCP - General INTERNAL MEDICINE 02/28/17 10/23/23 Denisha Hansen PA [address] [place] [address] PCP - General PHYSICIAN SLASHER TENDER HELPER 10/24/23 Joann Marquez, AURELIANO-BC [address] [facility] [address] [place] [address] [place] Product Introduction Manager NURSE PRACTITIONER 02/28/17 documented as of this encounter
--- OUTSIDE RECORDS SUMMARY | 2024-12-27 10:24 | XMS_ITS | Encounter Summary ---
Author Organization [facility] Address [facility] [place] [address] Care Team Providers Care Paper Rewinder Name Role Phone Dennis Doran MD Primary Care Provider [phone] Joann Marquez-BC Unavailable [phone] Denisha Hansen Primary Care Provider [phone] Encounter Details Date Type Department Care Team (Late Contact Info) Description 09/09/2015 Abstract [facility] [address] [place] [address] Joann Marquez, AURELIANO-BC [address] [facility] [address] [place] [address] Social History Tobacco Use Types Packs/Day Years Used Date Smoking Tobacco: Every Day Cigarettes Alcohol Use Standard Drinks/Week Comments Yes 0 (1 standard drink = 0.6 oz pur e alcohol) 8 beers (64) a month. 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 Contact Info) Description 02/24/2025 1:30 PM CDT Office Visit [facility] [address] [place] [address] Joann Marquez, ANP-BC [address] [facility] [address] [place] [address] documented as of this encounter Visit Diagnoses Not on filedocumented in this encounter Additional Health Concerns Infection Onset Date Last Indicated Resolved Time COVID-19 Rule Out 01/06/2022 01/06/2022 01/07/2022 2:32 PM CDT documented as of this encounter Care Teams Paper Rewinder Relationship Specialty Start Date End Date Dennis Doran MD PCP - General INTERNAL MEDICINE 02/28/17 10/23/23 Denisha Hansen PA [address] [place] [address] PCP - General PHYSICIAN LITHOPONE CHARGER 10/24/23 Joann Marquez, ANP-BC [address] [facility] [address] [place] [address] [place] Saw Feeder NURSE PRACTITIONER 02/28/17 documented as of this encounter
--- OUTSIDE RECORDS SUMMARY | 2024-12-27 10:25 | XMS_ITS | Encounter Summary ---
Author Organization [facility] Address [address] [place] [address] Care Team Providers Care Claim Adjuster Name Role Phone Dennis Doran MD Primary Care Provider [phone] Joann Marquez BANNER- Unavailable [phone] Denisha Hansen Primary Care Provider [phone] Encounter Details Date Type Department Care Team (Late Contact Info) Description 11/18/2021 Abstract [facility] [address] [place] [phone] Abstract, Doc [facility] Social History Tobacco Use Types Packs/Day Years Used Date Smoking Tobacco: Every Day Cigarettes Smokeless Tobacco: Never Alcohol Use Standard Drinks/Week Comments Yes 0 (1 standard drink = 0.6 oz pur e alcohol) 4-6 weekly Sex and Gender Information Value Date Recorded Sex Assigned at Male 11/14/2024 8:21 AM NUTRITION CONSULTANT Legal Sex Male 1:10 AM CDT Gender Identity Not on file Sexual Orientation Not on file 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 Yes 11/07/2021 3:01 PM NUTRITION CONSULTANT documented as of this encounter Plan of Treatment Upcoming Encounters Date Type Department Care Team (Late Contact Info) Description 02/24/2025 1:30 PM CDT [facility] [address] [place] [address] Joann Marquez, ANP-BC [address] [facility] [address] [place] [address] documented as of this encounter Procedures Procedure Name Priority Date/Time Associated Diagnosis Comments D-DIMER, QUANTITATIVE Routine 10/17/2021 TROPONIN WHOLE BLOOD Routine 09/20/2021 COMPREHENSIVE METABOLIC PANEL Routine 09/20/2021 CBC W/DIFF AUTOMATED Routine 09/20/2021 documented in this encounter Results * D-DIMER, QUANTITATIVE (10/17/2021) Pathologist [facility] D-DIMER 0.47 10/17/2021 us Doc [facility] LABORAT[facility] Final Result * TROPONIN WHOLE BLOOD (09/20/2021) Pathologist [facility] TROPONIN T 8 <23 09/20/2021 us Doc [facility] LABORATORY Final Result * CBC W/DIFF AUTOMATED (09/20/2021) Pathologist [facility] WBC 7.8 RBC 4.45 HGB 13.4 HCT 40.4 MCV 90.8 MCH 30.1 MCHC 33.2 RDW 13.8 PLT 214 NEUTROPHILS % 70.6 LYMPHOCYTES % 17.1 MONOCYTES % 5.6 EOSINOPHILS % 5.4 BASOPHILS % 1.3 ABS. NEUTROPHILS 5,507 ABS. LYMPHOCYTES 1,334 ABS. MONOCYTES 437 ABS. BASOPHILS 101 09/20/2021 us Doc [facility] LABORAT[facility] Final Result * (ABNORMAL) COMPREHENSIVE METABOLIC PANEL (09/20/2021) Pathologist [facility] SODIUM S/P/B 138 POTASSIUM S/P/B [...] documented as of this encounter Care Teams Claim Adjuster Relationship Specialty Start Date End Date Dennis Doran MD PCP - General INTERNAL MEDICINE 02/28/17 10/23/23 Denisha Hansen PA [address] [place] [address] PCP - General PHYSICIAN MEDICAL APPARATUS MODEL MAKER 10/24/23 Joann Marquez, ANP- [address] [place] [address] [address] [place] [address] [place] Low Voltage Electrician NURSE PRACTITIONER 02/28/17 documented as of this encounter
--- OUTSIDE RECORDS SUMMARY | 2024-12-27 10:25 | XMS_ITS | Encounter Summary ---
Author Organization [facility] Address [facility] [place] [address] Care Team Providers Care Monotype Mechanic Name Role Phone Dennis Doran MD Primary Care Provider [phone] Joann Marquez [facility]- Unavailable [phone] Denisha Hansen Primary Care Provider Encounter Details Date Type Department Care Team (Late st Contact Info) Description 12/21/2021 Prep for Procedure [facility] [address] [place] [address] Nima Hollis MD [address] [place] [address] Social History Tobacco Use Types Packs/Day Years Used Date Smoking Tobacco: Every Day Cigarettes Smokeless Tobacco: Never Alcohol Use Standard Drinks/Week Comments Yes 0 (1 standard drink = 0.6 oz pur e alcohol) 4-6 weekly Sex and Gender Information Value Date Recorded Sex Assigned at Male 11/14/2024 8:21 AM HEALTHCARE PROF Legal Sex Male 1:10 AM CDT Gender Identity Not on file Sexual Orientation Not on file 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 No / Unsure 12/19/2021 10:29 AM HEALTHCARE PROF documented as of this encounter Plan of Treatment Upcoming Encounters Date Type Department Care Team (Late st Contact Info) Description 02/24/2025 1:30 PM CDT Office Visit [facility] [address] [place] [address] Joann Marquez, ANP-BC [address] [facility] [address] [place] [address] documented as of this encounter Visit Diagnoses Not on filedocumented in this encounter Additional Health Concerns Infection Onset Date Last Indicated Resolved Time COVID-19 Rule Out 01/06/2022 01/06/2022 01/07/2022 2:32 PM CDT documented as of this encounter Care Teams Monotype Mechanic Relationship Specialty Start Date End Date Dennis Doran MD PCP - General INTERNAL MEDICINE 02/28/17 10/23/23 Denisha Hansen PA [address] [place] [address] PCP - General PHYSICIAN LIBRARY SALES CONSULTANT 10/24/23 Joann Marquez, AURELIANO-BC [address] [facility] [address] [place] [address] [place] Pricing Intern NURSE PRACTITIONER 02/28/17 documented as of this encounter
== END 2024-12-27 10:21 | disposition home or self-care (01) ==
PROVIDERS: PCP Physician Assistant Medical; Visit Provider Internal Medicine Nephrology
DX: N18.6 End stage renal disease (principal)
CPT/HCPCS: 74176

== ENCOUNTER 2025-09-03 12:51 | Outpatient (CLI) | payer OTHER, SELFPAY ==
[2025-09-03 14:27] LABS: Hematocrit 40.6 % (42.0-52.0); Hemoglobin 13.0 g/dL (14.0-18.0)
[2025-09-03 14:45] LABS: Anion Gap 10 mmol/L (4-12); Blood Urea Nitrogen 49 mg/dL (9-20); Calcium 9.1 mg/dL (8.4-10.2); Carbon Dioxide 32 mmol/L (22-30); Chloride 92 mmol/L (98-107); Estimated Glomerular Filt Rate 10; Glucose 179 mg/dL (65-110); INR 1.1; Partial Thromboplastin Time 30.1 Seconds (22.3-36.8); Potassium 4.3 mmol/L (3.4-5.0); Prothrombin Time 13.7 Seconds (11.1-14.7); Sodium 134 mmol/L (137-145)
== END 2025-09-03 12:52 | disposition home or self-care (01) ==
LOC: ANHSURGERY 12:53
PROVIDERS: Anesthesiology; PCP Physician Assistant Medical; Visit Provider Otolaryngology
DX: E10.22 Type 1 diabetes mellitus with diabetic chronic kidney disease (principal); N18.6 End stage renal disease; D64.9 Anemia, unspecified
CPT/HCPCS: 36415; 80048; 85014; 85018; 85610; 85730

== ENCOUNTER 2025-09-04 08:48 | Outpatient (CLI) | payer OTHER, SELFPAY ==
--- NOTE | ~2025-09-04 | CT_ITS ---
EXAMINATION: CT soft tissue neck w con COMPARISON: None HISTORY: R49.0 - Dysphonia TECHNIQUE: Axial images were obtained with IV contrast. Sagittal, coronal reconstruction images were obtained from the axial views. Omnipaque 370, [address] scan performed using dose optimization techniques including the following automated exposure control; adjustment of mA and/or kV; use of iterative reconstruction technique. Automatic exposure control was used to reduce radiation dose. Permanent radiation dose record is archived to PACS. FINDINGS: With the visualized brain parenchyma appears unremarkable. The optic globes are unremarkable There is no thickening of the prevertebral space. No asymmetry of the base of the tongue. No asymmetry of the airway on the aryepiglottic folds. No asymmetry of the visualized vocal cords No thyroid nodules. No lymphadenopathy anterior superior mediastinum. No significant thickening of the esophagus The parapharyngeal spaces and tonsillar tissue appear unremarkable The parotid and submandibular glands are unremarkable There is no jugulodigastric, posterior cervical or supraclavicular lymphadenopathy The lung apices are unremarkable No sclerotic or lytic lesions. No significant sinusitis The soft tissues appear unremarkable. IMPRESSION: No etiology to explain the patient's symptoms. If symptoms persist direct visualization is recommended Reviewed, dictated and finalized at location P. SHING MANAGER
--- OUTSIDE RECORDS SUMMARY | 2025-09-04 09:07 | XMS_ITS | Encounter Summary ---
Author Organization [facility] Address [facility] [place] [address] Care Team Providers Care Product Safety Specialist Name Role Phone Dennis Doran MD Primary Care Provider [phone] Joann Marquez Unavailable [phone] Denisha Hansen Primary Care Provider [phone] Seda Rajput MD Unavailable [phone] Encounter Details Date Type Department Care Team (Late st Contact Info) Description 05/04/2017 Abstract [facility] [address] [place] [address] Joann Marquez, AURELIANO-BC [address] [facility] [address] [place] [address] Social History Tobacco Use Types Packs/Day Years Used Date Smoking Tobacco: Every Day Cigarettes Smokeless Tobacco: Never Alcohol Use Standard Drinks/Week Comments Yes 0 (1 standard drink = 0.6 oz pur e alcohol) 4-6 weekly Sex and Gender Information Value Date Recorded Sex Assigned at Male 11/14/2024 8:21 AM PROGRAM DIRECTOR CABLE TELEVISION Legal Sex Male 1:10 AM CDT Gender Identity Not on file Sexual Orientation Not on file 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 Not on file [...] documented as of this encounter Care Teams Product Safety Specialist Relationship Specialty Start Date End Date Dennis Doran MD PCP - General INTERNAL MEDICINE 02/28/17 10/23/23 Denisha Hansen PA [address] [place] [address] PCP - General PHYSICIAN GUEST SERVICE MANAGER 10/24/23 Joann Marquez, ANP- [address] [facility] [address] [place] [address] [place] Prestressed Concrete Laborer NURSE PRACTITIONER 02/28/17 Seda Rajput MD [address] [facility] [address] [place] [phone] Referring Physician NEPHROLOGY 07/28/25 documented as of this encounter
--- OUTSIDE RECORDS SUMMARY | 2025-09-04 09:07 | XMS_ITS | Encounter Summary ---
Author Organization [facility] Address [facility] [place] [address] Care Team Providers Care Blood Bank Supervisor Name Role Phone Dennis Doran MD Primary Care Provider Joann Marquez Unavailable [phone] Denisha Hansen Primary Care Provider [phone] eSda Rajput MD Unavailable [phone] Encounter Details Date Type Department Care Team (Late st Contact Info) Description 05/04/2017 Abstract [facility] [place] [address] [place] [address] Joann Marquez, AURELIANO-BC [address] [facility] [address] [place] [address] Social History Tobacco Use Types Packs/Day Years Used Date Smoking Tobacco: Every Day Cigarettes Smokeless Tobacco: Never Alcohol Use Standard Drinks/Week Comments Yes 0 (1 standard drink = 0.6 oz pur e alcohol) 4-6 weekly Sex and Gender Information Value Date Recorded Sex Assigned at Male 11/14/2024 8:21 AM BAKERY DELIVERER Legal Sex Male 1:10 AM CDT Gender Identity Not on file Sexual Orientation Not on file 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
--- OUTSIDE RECORDS SUMMARY | 2025-09-04 09:07 | XMS_ITS | Encounter Summary ---
Author Organization [facility] Address [facility]ly [facility] [place] [address] Care Team Providers Care Paint And Table Edger Name Role Phone Dennis Doran MD Primary Care Provider [phone] Joann Marquez Unavailable [phone] Denisha Hansen Primary Care Provider [phone] Seda Rajput MD Unavailable [phone] Encounter Details Date Type Department Care Team (Late st Contact Info) Description 05/04/2017 Abstract [facility] [address] [place] [address] Joann Marquez, AURELIANO-BC [address] 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 [address] [place] [address] Susan Green Marketer NURSE PRACTITIONER 02/28/17 Seda Rajput MD [address] [facility] [address] [place] [address] Referring Physician NEPHROLOGY 07/28/25 documented as of this encounter
--- OUTSIDE RECORDS SUMMARY | 2025-09-04 09:09 | XMS_ITS | Clinical Summary ---
Author Organization [facility] Address [address] [place] [address] Care Team Providers Care Trust Officer Name Role Phone JimmyJoann Bernard [facility]- Unavailable [phone] Denisha Hansen Primary Care Provider Seda Rajput MD Unavailable [phone] Allergies Active Allergy Reactions Criticality Noted Date [...] as needed. at bedtime. 11/02/19 22 Active carvedilol (COREG) 25 MG tablet Take 1 tablet (25 mg total) by mouth 2 (two) times daily. 180 tablet 1 06/04/20 24 Active lisinopril (PRINIVIL) 2.5 MG tablet Take 1 tablet (2.5 mg total) by mouth daily. 10/06/20 24 Active nitroglycerin (NITROSTAT) 0.4 MG SL tablet DISSOLVE 1 TABLET UNDER THE TONGUE EVERY 5 MINUTES NEEDED FOR CHEST PAIN. MAX 3 DOSES 25 tablet 3 04/03/20 25 Active evolocumab (REPATHA SURECLICK) 140 MG/ML injection (PEN) Inject 1 mL (140 mg total) into the skin every 14 (fourteen) days. 2 Pen 3 07/28/20 25 Active atorvastatin (LIPITOR) 80 MG tablet Take 1 tablet (80 mg total) by mouth every evening. 90 tablet 3 07/28/20 25 Active isosorbide mononitrate ER (IMDUR) 60 MG 24 hr tablet Take 1 tablet (60 mg total) by mouth every morning. 90 tablet 3 07/28/20 25 Active clopidogrel (PLAVIX) 75 MG tablet Take 1 tablet (75 mg total) by mouth daily. 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 Diabetic retinopathy Hyperlipidemia Hypertension Encounters Date Type Department Care Team Description 07/28/2025 11:30 AM CDT Office Visit [facility] [address] [place] [address] Joann Marquez [facility] Follow Up 07/28/2025 Travel 07/27/2025 Telephone [facility] [address] [place] [address] Joann Marquez [facility] Appointment Reminder 06/18/2025 Telephone [facility] [address] [place] [address] Abstract, Doc Pccl Lab Results from Last 3 Months Family History Medical [...] Sex Assigned at Male 11/14/2024 8:21 AM CHURCH BUSINESS ADMINISTRATOR Legal Sex Male 1:10 AM CDT Gender Identity Not on file Sexual Orientation Not on file 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 Not on file Not on file Not on file Not on file Not on file Not on file Not on file Last Filed Vital Signs Vital Sign Reading Time Taken Comments Blood Pressure 110/60 07/28/2025 11:31 AM CDT Pulse 83 07/28/2025 11:31 AM CDT Temperature 36.3 C (97.3 F) 02/17/2025 1:11 PM CDT Respiratory Rate 18 07/28/2025 11:31 AM CDT Oxygen Saturation 94% 07/28/2025 11:31 AM CDT Inhaled Oxygen Concentration - - Weight 85.7 kg (189 lb) 07/28/2025 11:31 AM CDT Height 180.3 cm (5' 11) 07/28/2025 11:31 AM CDT Body Mass Index 26.36 07/28/2025 11:31 AM CDT Plan of Treatment Health Maintenance Due Date Last Done Comments Colorectal Cancer Screening Colonoscopy (10 Years) 1973 Annual Physical 1976 Diabetes: Retinopathy Eye Exam 1991 Hepatitis C 1991 DTaP, Tdap and Td Vaccines (1 - Tdap) 1992 Zoster Vaccines (1 of 2) 2023 Hemoglobin A1C 10/20/2023 04/20/2023, 01/21, 05/22/2018 COVID-19 Vaccine (1 - season) 2025 Influenza Adult (#1) 2025 10/22/2017 Hepatitis B Vaccines (3 of 3 - 19+ 3-dose series) 09/22/2025 06/03/2025, 04/22/2025, 03/23/2025 Lipid Panel 04/21/2026 04/21/2025, /03/2024, 08/09/2022, Additional history exists Pneumococcal Vaccine: 50+ Years Completed 01/16/2025 Hepatitis A Vaccines Aged Out No long er eligible based on patient's age to complete this topic Meningococcal B Vaccine Aged Out No l onger eligible based on patient's age to complete this topic Meningococcal Vaccine Aged Out No nancy deisy eligible based on patient's age to complete this topic RSV Immunizations Under 20 Months Aged Out No longer eligible based on patient's age to complete this topic Procedures Procedure Name Priority Date/Time Associated Diagnosis Comments LIPID PANEL Routine 04/21/2025 HEMOGLOBIN, GLYCOSYLATED Routine 04/20/2023 from Last 3 Months or Most Recently Relevant to Health Maintenance Results * (ABNORMAL) LIPID PANEL (04/21/2025) CHOLESTEROL 185 <=200 HDL 31 TRIGLYCERIDES 329(A) <=150 NON HDL CHOLESTEROL 154(A) <=130 CHOL/HDL RATIO 6.0(A) <=5 LDL (CALCULATED) 110 04/21/2025 us Doc Pccl Abstract LABORATORY Final Result * (ABNORMAL) HEMOGLOBIN, GLYCOSYLATED (04/20/2023) HGB A1C 8.3(A) <=5.7 % Narrative Resulting Agency Comment us Dennis Doran MD LABORATORY Final Result from Last 3 Months or Most Recently Relevant to Health Maintenance Insurance TAMIETKATHRYN MEHTAAIN [employer] Advance Directives * Full Code (Latest Code Status on File) Date Activated Date Inactivated Comments 05/21/2018 4:55 PM 05/22/2018 6:02 PM Care Teams Trust Officer Relationship Specialty Start Date End Date Denisha Hansen PA [address] [place] [address] PCP - General PHYSICIAN PRINT LINE OPERATOR 10/24/23 Joann Marquez, ANP- [address] [facility] [address] [place] [address] [employer] Employee Counselor NURSE PRACTITIONER 02/28/17 Seda Rajput MD [address] [facility] [address] [place] [address] Referring Physician NEPHROLOGY 07/28/25
--- OUTSIDE RECORDS SUMMARY | 2025-09-04 09:09 | XMS_ITS | Clinical Summary ---
Author Organization [facility] Address [address] [place] [address] Care Team Providers Care Bread Panner Name Role Phone Denisha Hansen PA-C Primary Care Provider [phone] Source Comments [facility],non-owned Affiliates and Associated Physician Practices is amultiple site organization consisting of ambulatory clinics and hospital sitesin [place], [place], [place] and [place]. This disclosure is being madepursuant to the Care Everywhere program and may not contain all information available regarding this patient. Last updated 18.[facility] Allergies Active Allergy Reactions Criticality Noted Date Comments Guaifenesin Swelling 03/31/2016 Medications * Be aware that medications may not be up to date on this document. Alwaysverify current medications with the patient. amLODIPine (Norvasc) 10 MG tablet Take 1 (one) tablet by mouth once daily 12/24/19 25 Active ALPRAZolam (Xanax) 0.25 MG tablet Take 1 (one) tablet by mouth once daily as needed 12/31/19 25 Active atorvastatin (Lipitor) 40 MG tablet Take 1 (one) tablet by mouth once daily Active carvedilol (Coreg) 25 MG tablet Take 1 (one) tablet by mouth 2 times daily 06/04/20 24 Active clopidogrel (plaVIX) 75 MG tablet Take 1 (one) tablet by mouth once daily Active isosorbide mononitrate CR 24hr (Imdur) 60 MG tablet Take 1 (one) tablet by mouth every morning 12/01/19 25 Active levothyroxine (Synthroid) 50 MCG tablet Take 1 (one) tablet by mouth once daily 12/24/19 25 Active lisinopril (Prinivil; Zestril) 2.5 MG tablet Take 1 (one) tablet by mouth once daily 12/14/19 25 Active pantoprazole EC (Protonix) 40 MG tablet Take 1 (one) tablet by mouth 2 times daily 12/31/19 25 Active pregabalin (Lyrica) 75 MG capsule Take 1 (one) capsule by mouth 2 times daily 12/31/19 25 Active venlafaxine XR 24hr (Effexor XR) 75 MG capsule Take 2 (two) capsules by mouth once daily 12/31/19 25 Active insulin lispro (HumaLOG) 100 unit/ml for insulin pump Inject 0.1-10 Units/hr subcutaneously 3 times daily before meals Active cetirizine (ZyrTEC) 10 MG tablet Active HYDROcodone-parker taminophen (Ridott) 5-325 MG tabletIndicatio ns:Peritoneal dialysis catheter dysfunction, subsequent encounter Take 1 (one) tablet by mouth every 6 hours as needed for Pain 10 tablet 01/28/20 25 Active furosemide (Lasix) 80 MG tablet Take 1 (one) tablet by mouth 2 times daily 01/30/20 25 Active Active Problems Problem Noted Date Diagnosed Date Postop check 01/30/2025 PD catheter dysfunction 01/23/2025 Social History Tobacco Use Types Packs/Day Years Used Date Smoking Tobacco: Every Day Cigarettes Tobacco Cessation:Ready to Q uit: Not Asked; Counseling Given: No AUDIT-C Answer Date Recorded Q1: How often do you have a drink containing alcohol? Never 01/27/2025 Q2: How many drinks containi ng alcohol do you have on a typical day when you are drinking? Patient does not drink Q3: How often do you have si x or more drinks on one occasion? Never 01/27/2025 Sex and Gender Information Value Date Recorded Sex Assigned at Not on file Legal Sex Male 7:05 AM CDT Gender Identity Not on file Sexual Orientation Not on file Last Filed Vital Signs Vital Sign Reading Time Taken Comments Blood Pressure 131/78 01/27/2025 3:15 PM CDT Pulse 67 01/27/2025 3:15 PM CDT Temperature 36.3 C (97.3 F) 01/27/2025 2:52 PM CDT Respiratory Rate 11 01/27/2025 2:52 PM CDT Oxygen Saturation 94% 01/27/2025 3:15 PM CDT Inhaled Oxygen Concentration - - Weight 87.1 kg (192 lb) 01/30/2025 10:01 AM CDT Height 180.3 cm (5' 11) 01/30/2025 10:01 AM CDT Body Mass Index 26.78 01/30/2025 10:01 AM CDT Plan of Treatment Health Maintenance Due Date Last Done Comments COLOGUARD (AGES 45-75) - COLON CA SCREENING 1973 COLON MONITORING 1973 COLONOSCOPY - COLON CA SCREENING 1973 CT COLONOGRAPHY - COLON CA SCREENING 1973 Colorectal Cancer Screening 1973 FIT - COLON CA SCREENING 1973 FLEX SIG - COLON CA SCREENING 1973 HIV SCREENING 1988 HEPATITIS C SCREENING 08/08/1991 DTAP/TDAP/TD VACCINES (1 - Tdap) 1992 HEPATITIS B VACCINE (1 of 3 - 19+ 3-dose series) 1992 PNEUMOCOCCAL VACCINE 50+ (1 of 2 - PCV) 1992 ZOSTER VACCINE (1 of 2) 2023 DEPRESSION SCREENING 10/22/2024 COVID-19 VACCINE (1 - season) 2025 INFLUENZA VACCINE (#1) 2025 SCREENING FOR DIABETES 01/28/2028 5, 01/27/2025, 01/27/2025, Additional history exists HIB VACCINE Aged Out No longer eligi ble based on patient's age to complete this topic HPV VACCINE Aged Out No longer eligi ble based on patient's age to complete this topic MENINGOCOCCAL (Group B) VACCINE SHARED DECISION-MAKING Aged Out No longer eligible based on patient's age to complete this topic MENINGOCOCCAL GROUPS A/C/Y/W VACCINE Aged Out No longer eligible based on patient's age to complete this topic Procedures Procedure Name Priority Date/Time Associated Diagnosis Comments GLUCOSE - POINT OF CARE Routine 01/27/2025 2:48 PM CDT from Last 3 Months or Most Recently Relevant to Health Maintenance Results * (ABNORMAL) GLUCOSE - POINT OF CARE (01/27/2025 2:48 PM CDT) Glucose WB/POC 159(H) 70 - 99 mg/dL 01/27/2025 3:57 PM CDT [facility] Specimen Type Cap Fingerstick 2024 3:57 PM CDT [facility] Blood BLOOD SPECIMEN / Unknown 01/27/2025 2:48 PM CDT 01/27/2025 3:57 PM CDT us Omar Coburn MD LAB - POINT OF CARE ORDERABLES Final Result [facility] [address] [place] [address] from Last 3 Months or Most Recently Relevant to Health Maintenance Insurance [employer] SELF PAY NO INSURANCE Member Subscriber Plan / Payer (Ef fective for All Dates) Name:Tank Kowalski Member ID:Not on file Relation to Subscriber:Not on file Name:TANK KOWALSKI Subscriber ID:Not on file Address: [address] [place] [address] Payer ID:Not on file Group ID:Not on file Type:Self Pay Address: [place], [place] [employer] SELF PAY NO INSURANCE Member Subscriber Plan / Payer (Ef fective for All Dates) Name:Tank Kowalski Member ID:Not on file Relation to Subscriber:Not on file Name:TANK KOWALSKI Subscriber ID:Not on file Address: [address] [place] [address] Payer ID:Not on file Group ID:Not on file Type:Self Pay Address: [place], [place] SELF PAY NO INSURANCE Member Subscriber Plan / Payer (Ef fective for All Dates) Name:Tank Kowalski Member ID:Not on file Relation to Subscriber:Not on file Name:TANK KOWALSKI Subscriber ID:Not on file Address: [address] [place] [address] Payer ID:Not on file Group ID:Not on file Type:Self Pay Address: [place], [place] Care Teams Bread Panner Relationship Specialty Start Date End Date Denisha Hansen PA-C [address] [place] [id number] PCP - General Physician Section Repairer 01/27/25
--- OUTSIDE RECORDS SUMMARY | 2025-09-04 09:09 | XMS_ITS | Clinical Summary ---
Author Organization [facility] Address [address] [place] [phone] Phone Care Team Providers Care Rotary Surface Grinder Name Role Phone Dennis Doran MD Primary Care Provider [phone] Allergies Active Allergy Reactions Criticality Noted Date Comments Guaifenesin Swelling 03/31/2016 Simvastatin 03/31/2016 Other reaction(s): Myalgias Medications amLODIPine (NORVASC) 10 MG tablet TK 1 T PO QD 0 Active carvedilol (COREG) 25 MG tablet TK 1 T PO BID 0 Active clopidogrel (PLAVIX) 75 MG tablet 0 Active nitroglycerin (NITROSTAT) 0.[address] 0.4 mg under the tongue once daily as needed 8 Active OXYCONTIN 20 MG 12 hr abuse-deterrent tablet TK 1 T PO QD IF NEEDED 0 Active VIIBRYD 40 MG tablet tablet TK 1 T PO QD 0 Active ergocalciferol (VITAMIN D-2) 1.25 MG (30140 UT) capsule Take 50,000 Units by mouth every 7 (seven) days 2 Active Icosapent Ethyl 1 g capsule Take 2 g by mouth 2 times daily 2 Active isosorbide mononitrate (IMDUR) 30 MG 24 hr tablet Take 30 mg by mouth daily 2 Active pantoprazole (PROTONIX) 40 MG EC tablet Take 40 mg by mouth 2 times daily 2 Active venlafaxine XR (EFFEXOR-XR) 75 MG 24 hr capsule Take 150 mg by mouth daily 2 Active ALPRAZolam (XANAX) 0.25 MG tablet Take 0.25 mg by mouth 1 (one) time each day if needed 2 Active atorvastatin (LIPITOR) 80 MG tablet 2 Active Continuous Blood Gluc Sensor (FreeStyle Mita 2 Sensor) misc USE DIRECTED TO CHECK FOUR TIMES DAILY 2 Active levothyroxine (SYNTHROID) 25 MCG tablet TAKE 1 TABLET BY MOUTH 1 HOUR BEFORE BREAKFAST 2 Active lisinopril (PRINIVIL) 2.5 MG tablet Take 2.5 mg by mouth 1 (one) time each day 2 Active mupirocin (BACTROBAN) 2 % ointment APPLY TOPICALLY TO THE AFFECTED AREA TWICE DAILY FOR 5 TO 7 DAYS 2 Active pregabalin (LYRICA) 75 MG capsule Take 75 mg by mouth every night 2 Active HumaLOG 100 UNIT/ML solution ADMINISTER 55 UNITS UNDER THE SKIN THREE TIMES DAILY 2 Active venlafaxine 75 MG 24 hr tablet TAKE 2 CAPSULES BY MOUTH DAILY. APPOINTMENT NEEDED 2 Active Active Problems Problem Noted Date Diagnosed [...] at Not on file Legal Sex Male 1:44 PM MDT Gender Identity Not on file Sexual Orientation [...] 10:47 AM CDT Height 180.3 cm (5' 11) 05/10/2022 10:47 AM CDT Body Mass Index 27.2 05/10/2022 10:47 AM CDT Plan of Treatment Health Maintenance Due Date Last Done Comments Influenza Vaccine (#1) 2025 Insurance Care Teams Rotary Surface Grinder Relationship Specialty Start Date End Date Dennis Doran MD [address] [place] [phone] PCP - General Internal Medicine 03/11/20
--- OUTSIDE RECORDS SUMMARY | 2025-09-04 09:09 | XMS_ITS | Encounter Summary ---
Author Organization [facility] Address [facility] [place] [address] Care Team Providers Care Gas Pipe Layer Name Role Phone Dennis Doran MD Primary Care Provider [phone] Joann Marquez Unavailable [phone] Denisha Hansen Primary Care Provider [phone] Seda Rajput MD Unavailable [phone] Encounter Details Date Type Department Care Team (Late st Contact Info) Description 12/24/2019 Abstract [facility] [address] [place] [address] Joann Marquez, AURELIANO-BC [address] [facility] [address] [place] [address] Social History Tobacco Use Types Packs/Day Years Used Date Smoking Tobacco: Every Day Cigarettes Smokeless Tobacco: Never Alcohol Use Standard Drinks/Week Comments Yes 0 (1 standard drink = 0.6 oz pur e alcohol) 4-6 weekly Sex and Gender Information Value Date Recorded Sex Assigned at Male 11/14/2024 8:21 AM CAPACITY MANAGER Legal Sex Male 1:10 AM CDT Gender Identity Not on file Sexual Orientation Not on file 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
--- OUTSIDE RECORDS SUMMARY | 2025-09-04 09:10 | XMS_ITS | Clinical Summary ---
Author Organization [facility] Address [address] [address] Phone Care Team Providers Care Polygraph Examiner Name Role Phone Dennis Doran MD [...] on file Legal Sex Male 4:06 AM COMMISSIONS SPECIALIST Gender Identity Not on file Sexual Orientation Not on file Last Filed Vital Signs Vital Sign Reading Time Taken Comments Blood Pressure 120/70 09/21/2015 2:37 PM COMMISSIONS SPECIALIST Pulse - - Temperature - - Respiratory Rate - - Oxygen Saturation - - Inhaled Oxygen Concentration - - Weight 86.2 kg (190 lb) 09/21/2015 2:37 PM COMMISSIONS SPECIALIST Height 180.3 cm (5' 11) 09/21/2015 2:37 PM COMMISSIONS SPECIALIST Body Mass Index 26.5 09/21/2015 2:37 PM COMMISSIONS SPECIALIST Plan of Treatment Health Maintenance Due Date Last Done Comments DTAP/TDAP/TD VACCINES (1 - Tdap) 1992 HEPATITIS B VACCINES (1 of 3 - 19+ 3-dose series) 07/23 COLORECTAL SCREENING 2018 Colorectal Cancer Screening 2018 FIT-DNA Q 3 years 2018 FIT/FOBT Q 1 year 2018 Flex Sig/CT Colonography Q 5 years 2018 ZOSTER VACCINE (1 of 2) 2023 INFLUENZA VACCINE (#1) 2025 Care Teams Polygraph Examiner Relationship Specialty Start Date End Date Dennis Doran MD [address] [place] [address] [place] [phone] PCP - General Internal Medicine 09/21/15
--- OUTSIDE RECORDS SUMMARY | 2025-09-04 09:10 | XMS_ITS | Encounter Summary ---
Author Organization [facility] Address [address] [place] [address] Care Team Providers Care Club Licensee Name Role Phone Dennis Doran MD Primary Care Provider [phone] Joann Marquez [facility]- Unavailable [phone] Denisha Hansen Primary Care Provider [phone] Seda Rajput MD Unavailable [phone] Encounter Details Date Type Department Care Team (Late st Contact Info) Description 11/18/2021 Abstract [facility] [address] [place] [id number] Abstract, Doc [facility] Social History Tobacco Use Types Packs/Day Years Used Date Smoking Tobacco: Every Day Cigarettes Smokeless Tobacco: Never Alcohol Use Standard Drinks/Week Comments Yes 0 (1 standard drink = 0.6 oz pur e alcohol) 4-6 weekly Sex and Gender Information Value Date Recorded Sex Assigned at Male 11/14/2024 8:21 AM BOOKKEEPER Legal Sex Male 1:10 AM CDT Gender Identity Not on file Sexual Orientation Not on file 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 Yes 11/07/2021 3:01 PM BOOKKEEPER documented as of this encounter Plan of Treatment Not on file documented as of this encounter Procedures Procedure Name Priority Date/Time Associated Diagnosis Comments D-DIMER, QUANTITATIVE Routine 10/17/2021 TROPONIN WHOLE BLOOD Routine 09/20/2021 COMPREHENSIVE METABOLIC PANEL Routine 09/20/2021 CBC W/DIFF AUTOMATED Routine 09/20/2021 documented in this encounter Results * D-DIMER, QUANTITATIVE (10/17/2021) Pathologist [facility] D-DIMER 0.47 10/17/2021 us Doc [facility] Abstract LABORATORY Final Result * TROPONIN WHOLE BLOOD (09/20/2021) [facility] TROPONIN T 8 <23 09/20/2021 us Doc [facility] Abstract LABORATORY Final Result * CBC W/DIFF AUTOMATED (09/20/2021) [facility] WBC 7.8 RBC 4.45 HGB 13.4 HCT 40.4 MCV 90.8 MCH 30.1 MCHC 33.2 RDW 13.8 PLT 214 NEUTROPHILS % 70.6 LYMPHOCYTES % 17.1 MONOCYTES % 5.6 EOSINOPHILS % 5.4 BASOPHILS % 1.3 ABS. NEUTROPHILS 5,507 ABS. LYMPHOCYTES 1,334 ABS. MONOCYTES 437 ABS. BASOPHILS 101 09/20/2021 us Doc [facility] Abstract LABORATORY Final Result * (ABNORMAL) COMPREHENSIVE METABOLIC PANEL (09/20/2021) Pathologist [facility] SODIUM S/P/B 138 POTASSIUM S/P/B 4.2 CO2 [...] documented as of this encounter Care Teams Club Licensee Relationship Specialty Start Date End Date Dennis Doran MD PCP - General INTERNAL MEDICINE 02/28/17 10/23/23 Denisha Hansen PA [facility] [place] [address] PCP - General PHYSICIAN HELP DESK REP 10/24/23 Joann Marquez, ANP- [address] [facility] [address] [place] [id number] [place] Enterprise Software Developer NURSE PRACTITIONER 02/28/17 Seda Rajput MD [address] [facility] [address] [place] [address] Referring Physician NEPHROLOGY 07/28/25 documented as of this encounter
--- OUTSIDE RECORDS SUMMARY | 2025-09-04 09:10 | XMS_ITS | Encounter Summary ---
Author Organization [facility] Address [facility] [place] [address] Care Team Providers Care Geriatric Personal Care Aide Name Role Phone Dennis Doran MD Primary Care Provider [phone] Joann Marquez [facility]- Unavailable [phone] Denisha Hansen Primary Care Provider [phone] Seda Rajput MD Unavailable [phone] Encounter Details Date Type Department Care Team (Late st Contact Info) Description 12/21/2021 Prep for Procedure [facility] eld [address] [place] [address] Nima Hollis MD [address] [place] [address] Social History Tobacco Use Types Packs/Day Years Used Date Smoking Tobacco: Every Day Cigarettes Smokeless Tobacco: Never Alcohol Use Standard Drinks/Week Comments Yes 0 (1 standard drink = 0.6 oz pur e alcohol) 4-6 weekly Sex and Gender Information Value Date Recorded Sex Assigned at Male 11/14/2024 8:21 AM CLIMBING GUIDE Legal Sex Male 1:10 AM CDT Gender Identity Not on file Sexual Orientation Not on file 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 No / Unsure 12/19/2021 10:29 AM CLIMBING GUIDE documented as of this encounter Plan of Treatment Not on file documented as of this encounter Visit Diagnoses Not on filedocumented in this encounter Additional Health Concerns Infection Onset Date Last Indicated Resolved Time COVID-19 Rule Out 01/06/2022 01/06/2022 01/07/2022 2:32 PM CDT documented as of this encounter Care Teams Geriatric Personal Care Aide Relationship Specialty Start Date End Date Dennis Doran MD PCP - General INTERNAL MEDICINE 02/28/17 10/23/23 Denisha Hansen PA [address] [place] [address] PCP - General PHYSICIAN INDEPENDENT JEWELER 10/24/23 Joann Marquez, ANP- [address] [facility] [address] [place] [address] [place] Bsa Officer NURSE PRACTITIONER 02/28/17 Seda Rajput MD [address] [facility] [address] [place] [address] Referring Physician NEPHROLOGY 07/28/25 documented as of this encounter"
--- OUTSIDE RECORDS SUMMARY | 2025-09-04 09:10 | XMS_ITS | Encounter Summary ---
Author Organization [facility] Address [facility] [place] [address] Care Team Providers Care Life Insurance Salesperson Name Role Phone Dennis Doran MD Primary Care Provider [phone] Joann Marquez Unavailable Denisha Hansen Primary Care Provider [phone] Seda Rajput MD Unavailable [phone] Encounter Details Date Type Department Care Team (Late st Contact Info) Description 09/09/2015 Abstract [facility] [address] [place] [address] Joann Marquez, AURELIANO-BC [address] [facility] [address] [place] [address] Social History Tobacco Use Types Packs/Day Years Used Date Smoking Tobacco: Every Day Cigarettes Alcohol Use Standard Drinks/Week Comments Yes 0 (1 standard drink = 0.6 oz pur e alcohol) 8 beers (64) a month. 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 Not on file Not on file Not on file documented as of this encounter Plan of Treatment Not on file documented as of this encounter Visit Diagnoses Not on filedocumented in this encounter Additional Health Concerns Infection Onset Date Last Indicated Resolved Time COVID-19 Rule Out 01/06/2022 01/06/2022 01/07/2022 2:32 PM CDT documented as of this encounter Care Teams Life Insurance Salesperson Relationship Specialty Start Date End Date Dennis Doran MD PCP - General INTERNAL MEDICINE 02/28/17 10/23/23 Denisha Hansen PA [address] [place] [id number] PCP - General PHYSICIAN RN TRANSITION 10/24/23 Joann Marquez, [facility]- [address] [facility] [address] [place] [address] [employer] Prepress Stripper NURSE PRACTITIONER 02/28/17 Seda Rajput MD [address] [facility] [address] [place] [address] Referring Physician NEPHROLOGY 07/28/25 documented as of this encounter
== END 2025-09-04 08:49 | disposition home or self-care (01) ==
PROVIDERS: PCP Physician Assistant Medical; Visit Provider Otolaryngology
DX: R49.0 Dysphonia (principal)
CPT/HCPCS: 70491; Q9967

== ENCOUNTER 2025-09-08 01:40 | Day surgery (SDC) | payer OTHER, SELFPAY ==
[2025-09-03 13:09] VITALS: BP 81/54; PULSE 76; RESP 16; TEMP 37.2; O2SAT 98; BMI 26.1
--- NOTE | 2025-09-03 13:30 | PC.NURSE ---
Addendum entered by Leann Harris RN 09/03/25 13:43: Pt BP low, he was high this am and took his Lisinopril, its been very labile and he takes his BP meds accordingly. He feels ok, has a line haul truck driver today, no symptoms and has BP in 80's often and isnt concerned as I offered to call Dr Rajput from here, but pt states hes been running low and Dr Rajput is aware JRRN Original Note: [facility] has started construction of its new state of the art ER which will open Spring 2026. With this, we anticipate parking may be a challenge for some our surgical patients and families. Parking spaces are limited but are available for all Surgical, obstetrics, and ER patients sharing this lot. If you arrive and find you are having a hard time finding a parking space, please note that we understand the challenges, please drive around the hospital and park near Hospital Entrance 1. When you enter this entrance, you can ask a volunteer to direct or take you back to the surgical waiting area to check in. We appreciate everyone?s understanding of these expected challenges while we build for your future. Report to the Outpatient Waiting Room, entrance under the green pavilion located off [facility], at time __06:00am on date __09/08/25 . Planned Procedure Time: __07:30am .? Time changes happen often and if your time is changed the preop area will call you the afternoon before. - You and your visitor will be asked to self-screen and do not enter if you have any COVID symptoms. Please call surgeon if you need to reschedule. - A mask is optional within the hospital at this time. Patients may have clear liquids (water, carbonated beverages, clear teas, apple juice) until 3 hours prior to surgery with a maximum of 20 ounces. - No food from midnight until time of surgery and no smoking, or chewing tobacco (or any form of nicotine). No chewing gum, candy or mints. (0430am) Take only the following medications with a SIP of water on the morning of surgery: Coreg, Pregabalin, Levothyroxine, Isosorbide and Tramadol if needed DO NOT STOP ANY OF YOUR OTHER PRESCRIPTION MEDICATIONS PRIOR TO SURGERY EXCEPT THE FOLLOWING Hold all vitamins and supplements for 3 days per anesthesiologist. Medications to discontinue per physician HOLD PLAVIX for [address] Hayes Date to take last dose____09/03/25 Please no make-up, nail yoruba, hairspray, perfume, deodorant, or body powder the day of surgery.? No jewelry (including any body piercings) or valuables the day of surgery, leave them at home.? Please take a shower or bath the night before, or the morning of, surgery with an antibacterial soap.? Wear comfortable, loose fitting clothing.? - Jewelry must be removed prior to entering the operating room.? Rings and piercings that are not removed may be cut off. - The hospital will not accept responsibility for valuables.? - Please leave all valuables, including medications, at home the day of surgery. If you are going home after surgery, a licensed line haul truck driver must drive you home.? - NO public transportation without another adult if you receive anesthesia. - We recommend that an adult stay with you for 24 hours following discharge. - We also recommend that you do not drive, make important decision, drink alcoholic beverages, or take any drugs that were not prescribed by your health care provider for at least 24 hours after your discharge time. Follow any additional instructions given to you from your surgeon. Telephone instructions given to __Patient and asked if any additional questions and then verbalized understanding. Patient advised to call surgeon office or pre surgery nurse liaison [phone] if any additional questions.
[2025-09-08] VITALS (9 sets, daily range): BP systolic 118–147; BP diastolic 55–80; PULSE 70–97; RESP 11–20; TEMP 36.4–37.1; O2SAT 93–100
[2025-09-08] MEDS: SODIUM CHLORIDE 0.9% IV 500 ML 30 ML IV CONT (06:20)
[2025-09-08 06:47] LABS: Anion Gap 10 mmol/L (4-12); Blood Urea Nitrogen 43 mg/dL (9-20); Calcium 8.7 mg/dL (8.4-10.2); Carbon Dioxide 30 mmol/L (22-30); Chloride 92 mmol/L (98-107); Estimated CRCL calculation 17 ml/min; Estimated Glomerular Filt Rate 12; Glucose 291 mg/dL (65-110); Potassium 3.9 mmol/L (3.4-5.0); Sodium 132 mmol/L (137-145)
--- NOTE | 2025-09-08 06:52 | WPDANESEPPF ---
Anes - Initial Pre Proc Eval Procedure: Operation Date: 09/08/25 07:30 Proposed Procedures p Direct Laryngoscopy with Biopsy - Bertrand Hayes MD Date/Time: 09/08/25 06:52 Surgeon: Bertrand Hayes MD Pre Op Diagnosis: other diseases of vocal cord, dysphonia Patient Data Age: 50 Gender: M Height: 1.8 m Weight: 84.6 kg Last Vital Signs Temp 37.1 C 09/08/25 06:00 Pulse 85 09/08/25 06:00 Resp 18 09/08/25 06:00 BP 121/55 L 09/08/25 06:00 Pulse Ox 97 09/08/25 06:00 O2 Del Method Nasal Cannula 09/08/25 06:00 O2 Flow Rate 3 09/08/25 06:00 Allergies Allergy/AdvReac Type Severity Reaction Status Date / Time guaifenesin Allergy Severe Dyspnea / Verified 09/08/25 06:26 SOB Home Medications ?Medication ?Instructions ?Recorded ?Confirmed ?Type clopidogrel 75 mg tablet 75 mg PO DAILY 06/09/20 09/03/25 History Held on 09/03/25. Instructions: .Provider Order cetirizine 10 mg tablet (Zyrtec) 10 mg PO DAILY 08/09/22 09/08/25 History isosorbide mononitrate 60 mg 60 mg PO DAILY 10/19/24 09/08/25 History tablet,extended release 24 hr insulin lispro 100 unit/mL 100 unit continuous subcutaneous 01/07/25 09/08/25 Rx subcutaneous solution (Humalog infusion DAILY #90 mL U-100 Insulin) lidocaine 5 % topical patch 1 - 2 patch topical DAILY #30 ea 02/18/25 09/08/25 Rx carvedilol 25 mg tablet 25 mg PO .prn 03/03/25 09/08/25 History mupirocin 2 % topical ointment 1 applic topical BID #22 grams 04/21/25 09/08/25 Rx atorvastatin 40 mg tablet 40 mg PO DAILY #90 tabs 05/13/25 09/08/25 Rx furosemide 80 mg tablet 80 mg PO BID #180 tabs 06/03/25 09/08/25 Rx blood-glucose sensor (FreeStyle #6 ea 06/24/25 09/03/25 Rx Mita 2 Plus Sensor device) venlafaxine 75 mg capsule,extended 150 - 225 mg (2 - 3 x 75 mg) PO 07/10/25 09/08/25 Rx release 24 hr DAILY #180 caps alprazolam 0.25 mg tablet (Xanax) 0.25 - 0.5 mg (1 - 2 x 0.25 mg) PO 07/15/25 09/03/25 Rx DAILY PRN Anxiety #45 tabs pantoprazole 40 mg tablet,delayed 40 mg PO BID #180 tabs 07/27/25 09/08/25 Rx release levothyroxine 50 mcg tablet 50 mcg PO DAILY #90 tabs 07/30/25 09/08/25 Rx amlodipine 10 mg tablet 5 - 10 mg (0.5 - 1 x 10 mg) PO 08/13/25 09/03/25 Rx DAILY PRN if BP > 135 systolic #30 tabs albuterol sulfate 90 mcg/actuation 2 inh inhalation Q4H PRN shortness 08/17/25 09/03/25 Rx aerosol inhaler (Ventolin HFA) of breath or wheezing #6.7 grams ipratropium 0.5 mg-albuterol 3 mg 3 ml inhalation QID PRN shortness 08/19/25 09/03/25 Rx (2.5 mg base)/3 mL nebulization of breath, cough #180 mL soln nebulizers #1 ea 08/19/25 09/03/25 Rx tramadol 50 mg tablet 50 mg PO Q12H PRN pain, severe #20 08/20/25 09/03/25 Rx tabs lidocaine-prilocaine 2.5 %-2.5 % 2.5 g transdermal .three times a 08/25/25 09/03/25 History topical cream week Held on 09/03/25. Instructions: Patient no longer taking lisinopril 2.5 mg tablet 2.5 mg PO DAILY #90 tabs 08/25/25 09/08/25 Rx sevelamer carbonate 800 mg tablet 1,600 mg PO TID 08/25/25 09/08/25 History nitroglycerin 0.4 mg sublingual mg 09/03/25 History tablet pregabalin 75 mg capsule 75 mg PO Q12H 09/03/25 09/08/25 History Laboratory Tests 09/08/25 06:14 Sodium 132 L mmol/L (137-145) Potassium 3.9 mmol/L (3.4-5.0) Chloride 92 L mmol/L (98-107) Carbon Dioxide 30 mmol/L (22-30) Anion Gap 10 mmol/L (4-12) BUN 43 H mg/dL (9-20) Creatinine 5.05 H mg/dL (0.7-1.3) Estim Creat Clear Calc 17 ml/min Estimated GFR 12 L (59 - ) Glucose 291 H mg/dL (65-110) Calcium 8.7 mg/dL (8.4-10.2) Patient hx anesthesia problems: none Family hx anesthesia problems: none Results Review: All pre-operative results and documents have been reviewed as part of the pre-operative evaluation. [facility] Past Medical History Medical History (Updated 09/07/25 @ 15:08 by Olman Patel DO) On home O2 Lesion of vocal fold Dysphonia Vitamin B12 deficiency Hyperparathyroidism Vitamin D deficiency Hypertension Chronic fatigue Peripheral neuropathy Subcutaneous mass of neck excised Restless leg syndrome History of melanoma History of myocardial infarction Skin cyst Melanoma Left cheek and nose Nocturia Mild prostate enlargement on CT December 2022 CKD (chronic kidney disease) stage 4, GFR 15-29 ml/min Abscess of skin Ear pain, right Hypothyroidism Type 1 diabetes mellitus Neuropathy Hyperlipidemia Long-term insulin use with insulin pump COPD (chronic obstructive pulmonary disease) Vision loss Heart disease CAD (coronary artery disease) Anxiety Surgical History Surgical History Hx of laparoscopy Laparoscopic placement of peritoneal dialysis catheter 11/20/[address] Lagos. Hx of excision of mass Excision 2.5 cm subcutaneous mass of the neck with no margin 01/02/24 History of incision and drainage Multiple previous I&D's of bilateral groin abscesses for years History of heart artery stent x4 Family History Family History Mother Family history of cardiovascular disease Other Diabetes mellitus Family history of malignant neoplasm Hypertension Social History Social History Smoking packs per day: 2 Smoking cigarettes per day: 40.0 Years smoked: 25 Smoking pack-years: 50.00 Smoking status: Current every day smoker Tobacco type: cigarettes Second hand tobacco smoke exposure: Yes Smoking end date: 10/01/24 Alcohol intake: former Drinks per week: 6 Alcohol use details: None over a year Substance use: never Substance use type: does not use Do You Feel Safe in your Home?: Yes Lack of Transportation: No Lack of Food: Never True Current Housing: I Have Housing Concerned About Future Housing: No Difficulty Paying Gas/Electric Bills: No Difficulty Paying for Meds: No Currently Unemployed: No Education: High School Diploma/GED Difficulty w/ Childcare or Family Care: No Living arrangements: alone Occupation/Education: 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 Informed Consent: The patient's anesthetic plan and its attendant risks and benefits were discussed with the patient/family/POA. Questions were solicited and answers provided to the satisfaction of the patient/family/POA.
--- NOTE | 2025-09-08 07:02 | WPDHPUPDATE1 ---
History and Physical Update Update Date/Time: 09/08/25 07:02 History and Physical has been reviewed, including an updated exam of the patient. There are NO changes in the patient's condition. Risks, benefits, and alternatives have been discussed and questions answered. Patient agrees to proceed with procedure.
[2025-09-08] MEDS: dexAMETHasone SOD PHOS INJ 10 MG/ML 1 ML VIAL IV PUSH (07:48)
--- NOTE | 2025-09-08 07:49 | S_PTH ---
PATIENT: Tank Kowalski LOC: [facility] U#:[id number] AGE/SX: 50/M ROOM: RE09/08/[address]: Bertrand Hayes MD : 1975 BED: DIS: 09/08/2025 SPEC #: [id number] RECD: 09/08/25 07:58 STATUS: MAYCO REJoe #: [id number] NATASHA: 09/08/25 07:[address]: Bertrand Hayes DEPT: [facility] Surgical RECD BY: Sarina Sofia ENTERED: 09/08/25 07:59 SP TYPE: Surgical OTHR DR: Denisha Hansen PA-C Tissues: FSA - Frozen Section B - Vocal Cord Biopsy Procedures: Hematoxylin and Eosin Stain Frozen Section Gross and Microscopic Level 4 HER2 P16
--- NOTE | 2025-09-08 07:59 | SUR.OPER ---
Frozen Section given to [facility] Daniel at 0754. Daniel delivered Frozen Section to Sarina at 0758.
--- NOTE | 2025-09-08 08:14 | W.PM.PROC2 ---
Procedure Note - Detailed Date of Procedure 09/08/25 Pre-op Diagnosis Dysphonia Post-op Diagnosis Same Procedure Performed Microdirect laryngoscopy with biopsy Surgeon Bertrand Hayes MD Anesthesia General Description of Procedure Patient was identified in the preoperative area and informed written consent was obtained. The patient was transported to the operating room and placed supine on the operating room table. The anesthesiology service induced general anesthesia and intubated the patient. The patient was then positioned and draped. A surgical time-out was conducted confirming the patient's identity and the procedure to be performed. A mouthguard was placed to protect the upper dentition. A Kleinsasser laryngoscope was inserted. The oropharynx, hypopharynx, and larynx were all inspected. The scope was advanced into the laryngeal introitus. The patient was placed into suspension. Of note, the exposure was very challenging and significant force was used to adequately expose the vocal cords. Examination of the true vocal folds showed a fungating mass from the left anterior vocal cord extending to the anterior commissure. This mass bled easily. There was significant surrounding edema of both vocal cords. The visualized subglottis and supraglottic structures appeared free of mucosal lesions but the examination was limited by the difficult exposure. The left vocal cord mass was biopsied with cup forceps. This was sent for both frozen and permanent pathology. 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 There was some bleeding and oozing from the mass and this was controlled with oxymetazoline soaked pledgets. The patient was then taken out of suspension. The laryngoscope and mouthguard were removed. There were no injuries to the lips or teeth or gums. The patient was returned to the anesthesiology service. He was awoken, extubated, and transferred to the postoperative recovery area in stable condition. There were no immediate complications. Estimated Blood Loss 10
[2025-09-08] MEDS: fentaNYL CITRATE INJ (*CRX) 100 MCG/2 ML VIAL 25 MCG IV PUSH (08:26)
== END 2025-09-08 09:34 | disposition home or self-care (01) ==
PROVIDERS: Anesthesiology; PCP Physician Assistant Medical; Visit Provider Otolaryngology
PROC: 0CJS8ZZ Inspection of Larynx, Via Natural or Artificial Opening Endoscopic (ICD-10-PCS; CPT 31536; principal; 2025-09-08 07:30)
DX: C32.0 Malignant neoplasm of glottis (principal); R49.0 Dysphonia; I12.9 Hypertensive chronic kidney disease with stage 1 through stage 4 chronic kidney disease, or unspecified chronic kidney disease; E10.22 Type 1 diabetes mellitus with diabetic chronic kidney disease; N18.4 Chronic kidney disease, stage 4 (severe); Z87.891 Personal history of nicotine dependence
CPT/HCPCS: 31536; 36415; 80048; 82948; 88305; 88331; 88342; A9270; J0330; J1100; J2405; J2704; J3010; J7040

== ENCOUNTER 2025-09-29 07:36 | Outpatient (CLI) | payer OTHER, SELFPAY ==
--- NOTE | ~2025-09-29 | PE_ITS ---
EXAMINATION: PET skull to mid thigh DATE: 09/29/2025 10:01 INDICATION: Malignant neoplasm of the glottis TECHNIQUE: Blood glucose level was 199 mg/dL. 9.152 mCi of 18-fluorodeoxyglucose (18-FDG) was administered i.v. Low dose computed tomography (CT) images were acquired from the base of the brain to the proximal thighs for attenuation correction and anatomic localization. Positron emission tomography (PET) images were acquired in the same distribution beginning 58 minutes after injection. Images including fused PET/CT images were reconstructed in axial, coronal, and sagittal planes. Automated exposure control technique was employed. The dose- length product was 1008.46mGy-cm. COMPARISON: None FINDINGS: Head/neck: There is symmetric increased activity in the oral cavity, laryngeal muscles and ocular muscles without CT correlate, likely physiologic. The activity in the region of the laryngeal muscles themselves maximal SUV of 7.6. There is a second focus of slightly more intense uptake along the anterior margin of the vocal cords with maximal SUV of 11.1 which corresponds to the reported site of the squamous cell carcinoma. Vocal cords appear normal and symmetric with no nodular soft tissue correlate evident on the CT imaging. Again seen is relatively symmetric skin thickening with some superficial subcutaneous stranding in the bilateral malar and buccal regions. There is a subtalar focus of mild increased uptake with maximal SUV of 4.7 degrees of skin thickening in the right malar region. No pathologically enlarged cervical lymphadenopathy or other suspicious foci of increased FDG uptake in the visualized head or neck. Chest: Mild emphysema. Dependent atelectasis in both lungs. No suspicious pulmonary nodules, pneumonia or pleural effusion. Heart size normal. Atherosclerotic coronary artery calcifications. No pericardial effusion. Thoracic aorta is normal in caliber. No pathologically enlarged or FDG avid thoracic lymphaden opathy. Abdomen/pelvis/proximal thighs: Physiologic renal accumulation and excretion of FDG activity in the kidneys, bladder and along portions of ureters. Normal degree and heterogenous pattern of increased uptake throughout the liver without radiologic correlate or dominant FDG avid lesion. The gallbladder, pancreas, spleen and bilateral adrenal glands are normal. Mild uptake scattered throughout the bowels without radiologic correlate, also likely physiologic. Normal appendix. Calcifications at the bilateral vas deferens typically seen in the setting of diabetes. No other abnormal foci of increased FDG uptake or pathologically enlarged lymphadenopathy in the abdomen, pelvis or proximal thighs. Musculoskeletal: There is increased synovial uptake at the bilateral glenohumeral joints, left greater than right. Likely physiologic muscular activity in the bilateral upper extremities most prominent at the hands. No suspicious lytic, blastic or abnormally FDG avid bone lesions. IMPRESSION: 1. Focal increased uptake anteriorly at the vocal cords without radiologic correlate on CT which could relate to either a small amount of residual malignancy or response to recent biopsy. 2. Single small focus of mild uptake in the right malar subcutaneous soft tissues in the region of symmetric skin thickening and subcutaneous stranding suggestive of cellulitis. This would be an atypical location for an isolated metastatic lymph node in this more likely infectious or inflammatory in et iology. No other lesions suspicious for metastatic disease in the head, neck, chest, abdomen or pelvis. Reviewed, dictated and finalized at location A. UNTANT COST IMPRESSION: 1. Focal increased uptake anteriorly at the vocal cords without radiologic sydney elate on CT which could relate to either a small amount of residual malignancy or response to recent biopsy. 2. Single small focus of mild uptake in the right malar subcutaneous soft tissu es in the region of symmetric skin thickening and subcutaneous stranding sugges tive of cellulitis. This would be an atypical location for an isolated metastat ic lymph node in this more likely infectious or inflammatory in etiology. No ot her lesions suspicious for metastatic disease in the head, neck, chest, abdomen or pelvis.
== END 2025-09-29 07:37 | disposition home or self-care (01) ==
PROVIDERS: PCP Physician Assistant Medical; Visit Provider Otolaryngology
DX: C32.0 Malignant neoplasm of glottis (principal)
CPT/HCPCS: 78815; A9552